=== PATIENT | female | born 1975 | race Caucasian/White ===

== ENCOUNTER 2018-11-19 22:23 | Inpatient (IN) | payer MEDICARE ==
[~2018-11-19] VITALS: Ht 175.3 cm; Wt 148.5 kg
--- OUTSIDE RECORDS SUMMARY | 2018-11-19 22:59 | XMS REPORT | Continuity of Care Document ---
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 mg=1 tab, PO, Q24H, X 10 day, # 10 tab, 0 Refill(s) Active 03/15/2017 [facility] benzonatate 100 mg oral capsule 100 mg=1 cap, PO, TID, PRN Cough, # 20 cap, 0 Refill(s) Active 03/15/2017 [facility] Docusate Sodium 100 MG Oral Capsule [Colace] 200 mg, 2 cap, Route: PO, Drug form: CAP, ONCE, Dosing Weight 153.665, kg, Start date: 03/15/17 10:55:00 CDT, Stop date: 03/15/17 10:55:00 CDTNotes: (Same as: Colace) (Do Not Crush) Inactive 03/15/2017 [facility] magnesium citrate 58.2 MG/ML Oral Solution 300 ml, Route: PO, Drug Form: LIQ, Dosing Weight 153.665, kg, ONCE, Start date: 03/15/17 10:55:00 CDT, Stop date: 03/15/17 10:55:00 CDTNotes: (Same as: Citrate of Magnesia) Concentration: 1.745 gm / 30 mL Inactive 03/15/2017 [facility] remove patch Route: TOP, Bedtime, Drug form: ERFILM, Start date: 03/14/17 21:00:00 CDT, Duration: 30 day, Stop date: 04/12/17 21:00:00 CDTNotes: Remove patch 12 hours after application each day. No Longer Active 03/15/2017 [facility] Lidocaine 0.05 MG/MG Transdermal Patch 1 patch, Route: TOP, Daily, Drug form: FILM, Start date: 03/14/17 11:00:00 CDT, Duration: 30 day, Stop date: 04/13/17 9:00:00 CDT No Longer Active 03/14/2017 [facility] WAIT for vancomycin trough draw prior to giving next dose WAIT for vancomycin trough draw prior to giving next dose, reminder, Drug form: MISC, Route: MISC, ONCE, 03/14/17 7:30:00 CDT, Stop date: 03/14/17 7:30:00 CDT Inactive 03/14/2017 [facility] WAIT for vancomycin trough draw prior to giving next dose WAIT for vancomycin trough draw prior to giving next dose, reminder, Drug form: MISC, Route: MISC, ONCE, 03/14/17 5:30:00 CDT, Stop date: 03/14/17 5:30:00 CDT Inactive 03/14/2017 [facility] Lovenox 40 mg, 0.4 mL, Route: SUB-Q, Drug form: INJ, Daily, Dosing Weight 153.665, kg, Start date: 03/13/17 17:00:00 CDT, Duration: 30 day, Stop date: 04/11/17 17:00:00 CDTNotes: (Same as: Lovenox) No Longer Active 03/13/2017 [facility] potassium chloride 20 mEq oral tablet, extended release 40 mEq, 2 tab, Route: PO, Drug form: ERTAB, ONCE, Dosing Weight 153.665, kg, Start date: 03/13/17 16:35:00 CDT, Stop date: 03/13/17 16:35:00 CDTNotes: (Same as: K-Dur 20) "Do Not Crush" With food and full glass of water Inactive 03/13/2017 [facility] Docusate 100 mg, 1 cap, Route: PO, Drug form: CAP, BID, Dosing Weight 125, kg, Start date: 03/13/17 9:00:00 CDT, Duration: 30 day, Stop date: 04/11/17 17:00:00 CDTNotes: (Same as: Colace) (Do Not Crush) No Longer Active 03/13/2017 [facility] budesonide-formoterol 160 mcg-4.5 mcg/inh inhalation aerosol with adapter 2 inhalation, Route: INHALATION, Drug Form: AERO/A, BID, Start date: 03/13/17 9:00:00 CDT, Duration: 30 day, Stop date: 04/11/17 17:00:00 CDTNotes: (Same as: Symbicort) WASTE: Aerosol - Return to Pharmacy No Longer Active 03/13/2017 [facility] Advair Diskus 500 mcg-50 mcg inhalation powder 1 puff, Route: INHALATION, Drug Form: AERO, Dosing Weight 125, kg, BID, Start date: 03/13/17 9:00:00 CDT, Duration: 30 day, Stop date: 04/11/17 17:00:00 CDT No Longer Active 03/13/2017 [facility] pneumococcal capsular polysaccharide type 1 vaccine / pneumococcal capsular polysaccharide type 10A vaccine / pneumococcal capsular polysaccharide type 11A vaccine / pneumococcal capsular polysaccharide type 12F vaccine / pneumococcal capsular polysacchar 0.5 mL, Route: IM, Drug Form: INJ, Daily, Start date: 03/13/17 9:00:00 CDT, Duration: 1 doses or times, Stop date: 03/13/17 9:00:00 CDTNotes: (Same as: Pneumovax 23) Refrigerate Inactive 03/13/2017 [facility] vancomycin 1.25 gm, 250 mL, Route: IVPB, Drug form: INJ, ABXQ8H, Start date: 03/13/17 5:00:00 CDT, Duration: 30 day, Stop date: 04/12/17 0:00:00 CDT, ABX Indication: PneumoniaNotes: TIME CRITICAL MEDICATION Same as: Vancocin-NS (premixed) Infusion rate 2001 mg: infuse over 2.5 hours No Longer Active 03/13/2017 [facility] Albuterol 0.833 MG/ML / Ipratropium [place] 0.167 MG/ML Inhalant Solution [DuoNeb] 3 mL, Route: NEB, Drug Form: SOLN, Dosing Weight 125, kg, RQ6H, Start date: 03/13/17 2:00:00 CDT, Duration: 30 day, Stop date: 04/11/17 20:00:00 CDTNotes: (Same as: Duoneb) No Longer Active 03/13/2017 [facility] Zosyn 3.375 gm, Route: IVPB, ABXQ8H, Dosing Weight 125, kg, Start date: 03/13/17 2:00:00 CDT, Duration: 5 day, Stop date: 03/17/17 18:00:00 CDT, ABX Indication: PneumoniaNotes: (Same as: Zosyn) Dosing based on Piperacillin component MEDICATION WASTE Product Size: 3375 mg Product Wasted: ___ mg No Longer Active 03/13/2017 [facility] heparin 7,500 unit, 1.5 mL, Route: SUB-Q, Drug form: INJ, Q8H, Dosing Weight 125, kg, Consider for obese patients, Start date: 03/13/17 0:00:00 CDT, Duration: 30 day, Stop date: 04/11/17 16:00:00 CDTNotes: porcine heparin Inactive 03/13/2017 [facility] Benadryl 25 mg, 0.5 mL, Route: IV, Drug form: INJ, Q6H, Dosing Weight 153.665, kg, PRN as needed for allergy symptoms, Start date: 03/12/17 23:37:00 CDT, Duration: 30 day, Stop date: 04/11/17 23:36:00 CDTNotes: (Same as: Benadryl) No Longer Active 03/13/2017 [facility] Singulair 10 mg, 1 tab, Route: PO, Drug form: TAB, Bedtime, Dosing Weight 125, kg, Start date: 03/12/17 21:00:00 CDT, Duration: 30 day, Stop date: 04/10/17 21:00:00 CDTNotes: (Same as:Devanulair) No Longer Active 03/13/2017 [facility] Vancomycin 1 ea, Route: MISC, ONCALL, Dosing Weight 125, kg, Start date: 03/12/17 21:00:00 CDT, day, Stop date: 03/12/17 21:00:00 CDT, Pharmacy to dose, ABX Indication: Pneumonia Inactive 03/13/2017 [facility] vancomycin 1.5 gm, 250 mL, Route: IVPB, Drug form: INJ, ONCE, Start date: 03/12/17 21:00:00 CDT, Stop date: 03/12/17 21:00:00 CDT, ABX Indication: PneumoniaNotes: TIME CRITICAL MEDICATION Same as: Vancocin-NS (pre mixed) Infusion rate 2001 mg: infuse over 2.5 hours Inactive 03/13/2017 [facility] Trazodone 50 mg, 1 tab, Route: PO, Drug form: TAB, Bedtime, Dosing Weight 153.665, kg, PRN Insomnia, Start date: 03/12/17 20:33:00 CDT, Duration: 30 day, Stop date: 04/11/17 20:32:00 CDTNotes: (Same As: Desyrel) No Longer Active 03/13/2017 [facility] Tessalon Perles 100 mg, 1 cap, Route: PO, Drug form: CAP, TID, Dosing Weight 153.665, kg, PRN Cough, Start date: 03/12/17 20:32:00 CDT, Duration: 30 day, Stop date: 04/11/17 20:31:00 CDTNotes: (Same As: Tessalon Per les) "Do Not Crush" No Longer Active 03/13/2017 [facility] senna 8.6 mg oral tablet 8.6 mg, 1 tab, Route: PO, Drug Form: TAB, Dosing Weight 153.665, kg, BID, PRN Constipation, Start date: 03/12/17 20:32:00 CDT, Duration: 30 day, Stop date: 04/11/17 20:31:00 CDTNotes: (Same as: Senokot) No Longer Active 03/13/2017 [facility] Acetaminophen 325 MG / Hydrocodone Bitartrate 10 MG Oral Tablet [[place] 10/325] 1 tab, Route: PO, Drug Form: TAB, Dosing Weight 125, kg, Q6H, PRN Pain Score 4-6, Start date: 03/12/17 20:30:00 CDT, Duration: 30 day, Stop date: 04/11/17 20:29:00 CDTNotes: Do not exceed 4gm/day of acetaminophen. (Same as: [place] 325/10) No Longer Active 03/13/2017 [facility] Morphine 2 mg, 1 mL, Route: IVP, Drug form: SOLN, Q4H, Dosing Weight 125, kg, PRN Pain Score 7-10, Start date: 03/12/17 20:29:00 CDT, Duration: 30 day, Stop date: 04/11/17 20:28:00 CDT No Longer Active 03/13/2017 [facility] Ondansetron 4 mg, 2 mL, Route: IVP, Drug form: INJ, Q6H, Dosing Weight 125, kg, PRN Nausea & Vomiting, Start date: 03/12/17 20:29:00 CDT, Duration: 30 day, Stop date: 04/11/17 20:28:00 CDTNotes: (Same as: Forrest) MEDICATION WASTE Product Size: 4 mg Product Wasted: ___ mg No Longer Active 03/13/2017 [facility] Acetaminophen 650 mg, 2 tab, Route: PO, Drug form: TAB, Q4H, Dosing Weight 125, kg, PRN Pain 1-3/Temp > 100.4 F, Start date: 03/12/17 20:29:00 CDT, Duration: 30 day, Stop date: 04/11/17 20:28:00 CDTNotes: Do not e xceed 4 gm/day. (Same as: Tylenol) No Longer Active 03/13/2017 [facility] Acetaminophen 325 MG / Hydrocodone Bitartrate 5 MG Oral Tablet 1 tab, Route: PO, Dosing Weight 125, kg, Q4H, PRN Pain Score 4-6, Start date: 03/12/17 20:29:00 CDT, Duration: 30 day, Stop date: 04/11/17 20:28:00 CDT Inactive 03/13/2017 [facility] Advair Diskus 500 mcg-50 mcg inhalation powder 1 puff, INHALATION, BID, 0 Refill(s) Active 03/13/2017 [facility] ibuprofen 800 mg oral tablet 800 mg=1 tab, PO, BID, PRN Pain Score 1-5, 0 Refill(s) Active 03/13/2017 [facility] naproxen sodium 550 mg oral tablet 550 mg=1 tab, PO, Daily, 0 Refill(s) Active 03/13/2017 [facility] Sodium Chloride 0.9% (Bolus) IV 1,000 mL, 1000 ml/hr, Infuse Over: 1 hr, Route: IV, 1,000, Drug form: INJ, ONCE, Priority: STAT, Dosing Weight 125 kg, Start date: 03/12/17 18:52:00 CDT, Duration: 1 doses or times, Stop date: 03/12/17 18:52:00 CDT Inactive 03/12/2017 [facility] Vancomycin 1,000 mg, Route: IVPB, ONCE, Dosing Weight 125, kg, Priority: STAT, Start date: 03/12/17 17:25:00 CDT, Duration: 1 doses or times, Stop date: 03/12/17 17:25:00 CDT, ABX Indication: BacteremiaNotes: TIME CRITICAL MEDICATION (Same As: Vancocin) Infusion rate 2001 mg: infuse over 2.5 hours MEDICATION WASTE Product Size: 1000 mg Product Wasted: ___ mg Inactive 03/12/2017 [facility] Piperacillin / tazobactam 3.375 gm, Route: IVPB, ONCE, Dosing Weight 125, kg, Priority: STAT, Start date: 03/12/17 17:25:00 CDT, Duration: 1 doses or times, Stop date: 03/12/17 17:25:00 CDT, ABX Indication: BacteremiaNotes: (Same as: Zosyn) Dosing based on Piperacillin component MEDICATION WASTE Product Size: 3375 mg Product Wasted: ___ mg Inactive 03/12/2017 [facility] Ondansetron 4 mg, 2 mL, Route: IVP, Drug form: INJ, ONCE, Dosing Weight 125, kg, Priority: STAT, Start date: 03/12/17 15:57:00 CDT, Stop date: 03/12/17 15:57:00 CDTNotes: (Same as: Zojayda) MEDICATION WASTE Product Size: 4 mg Product Wasted: ___ mg Inactive 03/12/2017 [facility] Morphine 4 mg, 1 mL, Route: IVP, Drug form: SOLN, ONCE, Dosing Weight 125, kg, Priority: STAT, Start date: 03/12/17 15:57:00 CDT, Stop date: 03/12/17 15:57:00 CDTNotes: (Same as:MORPhine Sulfate) Inactive 03/12/2017 [facility] Acetaminophen 300 MG / Codeine Phosphate 30 MG Oral Tablet [Tylenol with Codeine #3] 1 - 2 tab, PO, Q6H, PRN Pain, X 4 day, # 20 tab, 0 Refill(s) Active 11/05/2016 [facility] Morphine 4 mg, 1 mL, Route: IVP, Drug form: SOLN, ONCE, Dosing Weight 136.364, kg, Priority: STAT, Start date: 11/04/16 22:50:00 CDT, Stop date: 11/04/16 22:50:00 CDTNotes: (Same as:MORPhine Sulfate) No Longer Active 11/05/2016 [facility] Saline Flush 0.9% 10 mL, Route: IVP, Drug Form: INJ, Dosing Weight 136.364, kg, PRN, PRN Line Flush, Start date: 11/04/16 22:36:00 CDT, Duration: 30 day, Stop date: 12/04/16 22:35:00 CDTNotes: (Same as: BD Posiflush) No Longer Active 11/05/2016 [facility] Ketorolac Tromethamine 10 MG Oral Tablet 10 mg=1 tab, PO, Q6H, PRN Pain Score 6-10, X 3 day, # 12 tab, 0 Refill(s) Active 05/17/2016 [facility] Ketorolac 15 mg, Route: IVP, Drug form: INJ, ONCE, Dosing Weight 136.364, kg, Priority: STAT, Start date: 05/17/16 3:24:00 CRAS, Stop date: 05/17/16 3:24:00 CRAS Inactive 05/17/2016 [facility] Acetaminophen 300 MG / Codeine Phosphate 30 MG Oral Tablet [Tylenol with Codeine #3] 1 - 2 tab, PO, Q6H, PRN Pain, X 4 day, # 32 tab, 0 Refill(s) Active 05/13/2016 [facility] Motrin 800 mg, Route: PO, Drug form: TAB, ONCE, Dosing Weight 143.636, kg, Priority: STAT, Start date: 05/13/16 13:14:00 CRAS, Stop date: 05/13/16 13:14:00 CRAS Inactive 05/13/2016 [facility] Morphine 4 mg, Route: IVP, ONCE, Dosing Weight 143.636, kg, Priority: STAT, Start date: 05/13/16 11:32:00 CRAS, Stop date: 05/13/16 11:32:00 CRAS Inactive 05/13/2016 [facility] Morphine 4 mg, Route: IVP, ONCE, Dosing Weight 143.636, kg, Priority: STAT, Start date: 05/13/16 10:06:00 CRAS, Stop date: 05/13/16 10:06:00 CRAS Inactive 05/13/2016 [facility] Zofran 4 mg, Route: IVP, Drug form: INJ, ONCE, Dosing Weight 143.636, kg, Priority: STAT, Start date: 05/13/16 10:06:00 CRAS, Stop date: 05/13/16 10:06:00 CRAS Inactive 05/13/2016 [facility] Tylenol 1,000 mg, 2 tab, Route: PO, Drug form: TAB, ONCE, Dosing Weight 143.636, kg, Start date: 05/13/16 9:13:00 CRAS, Stop date: 05/13/16 9:13:00 CSTNotes: Max acetaminophen 4000 mg/day (4 gm/day). (Same as: Tylenol Extra Strength) Inactive 05/13/2016 [facility] Lactated Ringers 1,000 mL 1,000 mL, Rate: 999 ml/hr, Infuse over: 1 hr, Route: IV, Dosing Weight 143.636 kg, Total Volume: 1,000, Start date: 05/13/16 9:12:00 CRAS, Duration: 1 hr, Stop date: 05/13/16 10:11:00 CRAS Inactive 05/13/2016 [facility] Levofloxacin 750 mg, 150 mL, Route: IVPB, Drug form: SOLN, ONCE, Dosing Weight 143.636, kg, Priority: STAT, Start date: 05/13/16 9:11:00 CRAS, Stop date: 05/13/16 9:11:00 CSTNotes: (Same as:Levaquin) Inactive 05/13/2016 [facility] Saline Flush 0.9% 10 mL, Route: IVP, Drug Form: INJ, Dosing Weight 143.636, kg, PRN, PRN Line Flush, Start date: 05/13/16 9:11:00 CRAS, Duration: 30 day, Stop date: 06/12/16 9:10:00 CSTNotes: (Same as: BD Posiflush) Inactive 05/13/2016 [facility] Acetaminophen 300 MG / Codeine Phosphate 60 MG Oral Tablet [Tylenol with Codeine #4] 1 tab, PO, Q4H, PRN Pain, X 7 day, # 12 tab, 0 Refill(s) Active 04/20/2016 [facility] amoxicillin 500 mg oral tablet 500 mg=1 tab, PO, TID, X 10 day, # 30 tab, 0 Refill(s) Active 04/20/2016 [facility] Acetaminophen 325 MG / Hydrocodone Bitartrate 10 MG Oral Tablet [[place] 10/325] 1 tab, Route: PO, Drug Form: TAB, Dosing Weight 140.909, kg, ONCE, STAT, Start date: 04/19/16 21:59:00 CRAS, Stop date: 04/19/16 21:59:00 CSTNotes: Do not exceed 4gm/day of acetaminophen. (Same as: [place] 325/10) Inactive 04/20/2016 [facility] Sodium Chloride 0.154 MEQ/ML Injectable Solution 1,000 mL, 1,000 ml/hr, Infuse Over: 1 hr, Route: IV, 1,000, Drug form: INJ, ONCE, Priority: STAT, Dosing Weight 140.909 kg, Start date: 04/19/16 21:59:00 CRAS, Duration: 1 doses or times, Stop date: 04/19/16 21:59:00 CRAS Inactive 04/20/2016 [facility] Ondansetron 4 MG Disintegrating Tablet [Zofran] 4 mg=1 tab, PO, Q8H, PRN as needed for nausea/vomiting, X 3 day, # 12 tab, 0 Refill(s) Active 01/07/2016 [facility] Acetaminophen 300 MG / butalbital 50 MG / Caffeine 40 MG Oral Capsule [Fioricet] 1 cap, PO, Q4H, PRN PRN Headache, Do not exceed 6 capsules in 24 hours, X 5 day, # 30 cap, 0 Refill(s) Active 01/07/2016 [facility] Sodium Chloride 0.154 MEQ/ML Injectable Solution 1,000 mL, 1,000 ml/hr, Infuse Over: 1 hr, Route: IV, ONCE, Priority: STAT, Dosing Weight 143.636 kg, Start date: 01/07/16 2:32:00 CDT, Duration: 1 doses or times, Stop date: 01/07/16 2:32:00 CDT Inactive 01/07/2016 [facility] Metoclopramide 10 mg, Route: IVP, Drug form: INJ, ONCE, Dosing Weight 143.636, kg, Priority: STAT, Start date: 01/07/16 2:32:00 CDT, Stop date: 01/07/16 2:32:00 CDT Inactive 01/07/2016 [facility] Diphenhydramine 25 mg, Route: IVP, ONCE, Dosing Weight 143.636, kg, Priority: STAT, Start date: 01/07/16 2:32:00 CDT, Stop date: 01/07/16 2:32:00 CDT Inactive 01/07/2016 [facility] Sodium Chloride 0.154 MEQ/ML Injectable Solution 1,000 mL, 1,000 ml/hr, Infuse Over: 1 hr, Route: IV, 1,000, Drug form: INJ, ONCE, Priority: STAT, Dosing Weight 140 kg, Start date: 12/20/15 2:16:00 CDT, Duration: 1 doses or times, Stop date: 12/20/15 2:16:00 CDT Inactive 12/20/2015 [facility] Sulfamethoxazole 800 MG / Trimethoprim 160 MG Oral Tablet [Bactrim] 1 tab, PO, BID, X 10 day, # 20 tab, 0 Refill(s) Active 06/22/2015 [facility] Morphine 4 mg, Route: IM, Drug form: INJ, ONCE, Dosing Weight 127.273, kg, Priority: STAT, Start date: 06/22/15 9:53:00, Stop date: 06/22/15 9:53:00 Inactive 06/22/2015 [facility] Ibuprofen 800 MG Oral Tablet [Motrin] 800 mg=1 tab, PO, Q8H, Pain, Take with food, # 15 tab, 0 Refill(s)Special Instructions: Take with food Active 08/22/2014 [facility] Cyclobenzaprine hydrochloride 10 MG Oral Tablet [Flexeril] 10 mg=1 tab, PO, BID, # 6 tab, 0 Refill(s) Active 08/22/2014 [facility] Flexeril 10 mg, 1 tab, Route: PO, Drug form: TAB, ONCE, Dosing Weight 122.727, kg, Priority: STAT, Start date: 08/22/14 12:01:00, Stop date: 08/22/14 12:01:00Notes: (Same As: Flexeril) Inactive 08/22/2014 [facility] Acetaminophen 325 MG / Hydrocodone Bitartrate 5 MG Oral Tablet [[place] 5/325] 1 tab, Route: PO, Drug Form: TAB, Dosing Weight 122.727, kg, ONCE, STAT, Start date: 08/22/14 12:01:00, Stop date: 08/22/14 12:01:00Notes: (Same as: [place] 325/5) Do not exceed 4gm/day of acetaminophen. Inactive 08/22/2014 [facility] cyclobenzaprine 10 mg oral tablet 10 mg=1 tab, PO, TID, for spasm, # 30 tab, 0 Refill(s) Active 01/12/2014 [facility] ibuprofen 800 mg oral tablet 800 mg=1 tab, PO, Q8H, Pain, Take with food, # 30 tab, 0 Refill(s)Special Instructions: Take with food Active 01/12/2014 [facility] Motrin 800 mg, Route: PO, Drug form: TAB, ONCE, Dosing Weight 127.273, kg, Priority: STAT, Start date: 01/12/14 9:36:00, Stop date: 01/12/14 9:36:00 Inactive 01/12/2014 [facility] Flexeril 10 mg, Route: PO, ONCE, Dosing Weight 127.273, kg, Priority: STAT, Start date: 01/12/14 8:12:00, Stop date: 01/12/14 8:12:00 Inactive 01/12/2014 [facility] Motrin 800 mg, Route: PO, Drug form: TAB, ONCE, Dosing Weight 127.273, kg, Priority: STAT, Start date: 01/12/14 8:12:00, Stop date: 01/12/14 8:12:00 Inactive 01/12/2014 [facility] albuterol 0.083% inhalation solution 2.49 mg=3 mL, NEB, Q6H, # 120 ea, 0 Refill(s) Active s 07/17/2013 [facility] predniSONE 20 mg oral tablet 40 mg=2 tab, PO, Daily, # 8 tab, 0 Refill(s) Active s 07/17/2013 [facility] Tylenol with Codeine 120 mg-12 mg/5 mL oral liquid 15 mL, PO, TID, pain, # 120 mL, 0 Refill(s) Active s 07/17/2013 [facility] Azithromycin 5 Day Dose Pack 250 mg oral tablet 250 mg, PO, Daily, Take 2 tablets by mouth the first day then 1 tablet by mouth days 2- 5, # 6 tab, 0 Refill(s)Take 2 tablets by mouth the first day then 1 tablet by mouth days 2-5 Active s 07/17/2013 [facility] Saline Flush 0.9% 5 mL, Route: IVP, Drug Form: INJ, Dosing Weight 140.909, kg, PRN, PRN Line Flush, Start date: 07/17/13 11:07:00, Duration: 1 day, Stop date: 07/18/13 11:06:00(Same as: BD Posiflush) Inactive s 07/17/2013 [facility] methylPREDNISolone SODium SUCCinate 125 mg, Route: IVP, ONCE, Dosing Weight 140.909, kg, Priority: STAT, Start date: 07/17/13 11:07:00, Stop date: 07/17/13 11:07:00 Inactive s 07/17/2013 [facility] DuoNeb inhalation solution 3 ml, Route: INHALATION, Drug Form: SOLN, Dosing Weight 140.909, kg, PRN, PRN Respiratory Protocol, Start date: 07/17/13 10:54:00, Duration: 1 doses or times, Stop date: Limited # of times(Same as: Duoneb) Inactive [place] 07/17/2013 [facility] [place] 5/325 oral tablet 1 tab, PO, Q4H, PRN, 20 tab, for pain, Substitution Allowed, Maintenance, TAB PO Active [place] 07/02/2012 [facility] clindamycin 150 mg oral capsule 150 mg, 1 cap, PO, Q6H, 20 cap, Substitution Allowed, CAP PO Active [place] 07/02/2012 [facility] Saline Flush 0.9% 5 mL, Route: IVP, Drug Form: INJ, Dosing Weight 136.364, kg, Q8H, PRN Line Flush, Start date: 07/01/12 22:10:00, Duration: 30 day, Stop date: 07/31/12 22:09:00, Administer at least once every 8 hoursAdminister at least once every 8 hours IVP No Longer Active [place] 07/02/2012 [facility] Demerol HCl 50 mg, 1 mL, Route: IM, Drug form: INJ, ONCE, Dosing Weight 136.364, kg, Start date: 04/28/12 16:20:00, Stop date: 04/28/12 16:20:00 IM No Longer Active Lucas 04/28/2012 [facility] Dilaudid 0.5 mg, 0.25 mL, Route: IVP, Drug form: INJ, ONCE, Dosing Weight 136.364, kg, Start date: 04/28/12 15:37:00, Stop date: 04/28/12 15:37:00 IVP Active [place] 04/28/2012 [facility] acetaminophen 1,000 mg, 100 mL, Route: IVPB, Drug form: INJ, ONCE, Dosing Weight 136.364, kg, Start date: 04/28/12 15:29:00, Stop date: 04/28/12 15:29:00 IVPB Active Sandie 04/28/2012 [facility] Sublimaze 50 microgram, Route: IRRIG, ONCE, Dosing Weight 136.364, kg, Start date: 04/28/12 15:29:00, Stop date: 04/28/12 15:29:00 IRRIG No Longer Active Sandie 04/28/2012 [facility] cefazolin + Sodium Chloride 0.9% IV 100 mL 1 gm, Route: IVPB, PRE OP, Start date: 04/28/12 13:00:00, Duration: 12 hr, Stop date: 04/29/12 0:59:00 IVPB No Longer Active Federico 04/28/2012 [facility] lidocaine 0.1 mL, Route: IV, Drug form: INJ, ONCALL, Start date: 04/28/12 9:00:00, Duration: 12 hr, Stop date: 04/28/12 20:59:00 IV No Longer Active Gallacher 04/28/2012 [facility] Lactated Ringers Injection IV 1,000 mL 1,000 mL, Rate: 100 ml/hr, Infuse over: 10 hr, Route: IV, kg, Total Volume: 1,000, Start date: 04/28/12 9:00:00, Duration: 12 hr, Stop date: 04/28/12 20:59:00 IV No Longer Active Gallacher 04/28/2012 [facility] predniSONE 40 mg, 2 tab, Route: PO, Drug form: TAB, Daily, Start date: 04/26/12 9:00:00, Duration: 30 day, Stop date: 05/25/12 9:00:00 PO No Longer Active [place] 04/26/2012 [facility] Singulair 10 mg, 1 tab, Route: PO, Drug form: TAB, Daily, Start date: 04/25/12 21:00:00, Duration: 30 day, Stop date: 05/24/12 21:00:00 PO No Longer Active [place] 04/26/2012 [facility] acetaminophen-oxycodone 325 mg-10 mg oral tablet 1 tab, Route: PO, Drug Form: TAB, Q4H, PRN Other -See Comment, Start date: 04/25/12 10:35:00, Duration: 30 day, Stop date: 05/25/12 10:34:00 PO No Longer Active [place] 04/25/2012 [facility] Lovenox 40 mg, 0.4 mL, Route: SUB-Q, Drug form: INJ, Daily, Start date: 04/25/12 9:00:00, Duration: 30 day, Stop date: 05/24/12 9:00:00 SUB-Q No Longer Active [place] 04/25/2012 [facility] Ambien 5 mg, 1 tab, Route: PO, Drug form: TAB, Bedtime, PRN Sleep, Start date: 04/24/12 20:36:00, Duration: 30 day, Stop date: 05/24/12 20:35:00 PO No Longer Active [place] 04/25/2012 [facility] Protonix 40 mg, 1 tab, Route: PO, Drug form: ECTAB, BID- Before Meals, Start date: 04/23/12 16:30:00, Duration: 30 day, Stop date: 05/23/12 7:30:00 PO No Longer Active [place] 04/23/2012 [facility] Esgic 2 tab, Route: PO, Drug Form: TAB, ONCE, Start date: 04/23/12 12:00:00, Stop date: 04/23/12 12:00:00 PO No Longer Active [place] 04/23/2012 [facility] ferrous sulfate 325 mg, 1 tab, Route: PO, Drug form: TAB, BID, Start date: 04/23/12 12:00:00, Duration: 30 day, Stop date: 05/23/12 9:00:00 PO No Longer Active [place] 04/23/2012 [facility] Sodium Chloride 0.9% IV 1,000 mL 1,000 mL, Rate: 125 ml/hr, Infuse over: 8 hr, Route: IV, kg, Total Volume: 1,000, Start date: 04/23/12 12:00:00, Duration: 30 day, Stop date: 05/23/12 11:59:00 IV No Longer Active [place] 04/23/2012 [facility] multivitamin 1 tab, Route: PO, Drug Form: TAB, BID, Start date: 04/23/12 12:00:00, Duration: 3 doses or times, Stop date: 04/24/12 17:00:00 PO No Longer Active [place] 04/23/2012 [facility] docusate sodium 100 mg oral capsule 100 mg, 1 cap, Route: PO, Drug form: CAP, BID, PRN Constipation, Start date: 04/23/12 11:14:00, Duration: 30 day, Stop date: 05/23/12 11:13:00 PO No Longer Active [place] 04/23/2012 [facility] Esgic 2 tab, Route: PO, Drug Form: TAB, Q6H, PRN Pain, Start date: 04/23/12 11:13:00, Duration: 30 day, Stop date: 05/23/12 11:12:00 PO No Longer Active [place] 04/23/2012 [facility] Esgic 1 tab, Route: PO, Drug Form: TAB, Q6H, PRN Pain, Start date: 04/23/12 11:12:00, Duration: 30 day, Stop date: 05/23/12 11:11:00 PO No Longer Active [place] 04/23/2012 [facility] methylPREDNISolone 60 mg, 0.96 mL, Route: IV, Drug form: INJ, Q8H, Start date: 04/23/12 9:00:00, Duration: 3 doses or times, Stop date: 04/24/12 1:00:00 IV No Longer Active [facility] 04/23/2012 [facility] fluticasone-salmeterol 250 mcg-50 mcg MDI 1 inhalation, Route: INHALER, Drug Form: AERO, RBID, Start date: 04/22/12 20:00:00, Duration: 30 day, Stop date: 05/22/12 8:00:00 INHALER No Longer Active [facility] 04/23/2012 [facility] Lovenox 140 mg, 0.93 mL, Route: SUB-Q, Drug form: INJ, [id number], Start date: 04/22/12 17:00:00, Duration: 30 day, Stop date: 05/22/12 5:00:00 SUB-Q No Longer Active [place] 04/22/2012 [facility] methylPREDNISolone 40 mg, 1 mL, Route: IV, Drug form: INJ, Q8H, Start date: 04/22/12 16:00:00, Duration: 30 day, Stop date: 05/22/12 8:00:00 IV No Longer Active [facility] 04/22/2012 [facility] Zithromax IVPB, 166.67 ml/hr, [id number], Start date: 04/22/12 14:00:00, Duration: 30, 250 ml IVPB No Longer Active [facility] 04/22/2012 [facility] Rocephin + Sodium Chloride 0.9% IV 100 mL 1 gm, Route: IVPB, [id number], Start date: 04/22/12 13:00:00, Duration: 30 day, Stop date: 05/21/12 13:00:00 IVPB No Longer Active [facility] 04/22/2012 [facility] DuoNeb inhalation solution 3 mL, Route: NEB, Drug Form: SOLN, [id number], Start date: 04/22/12 11:00:00, Duration: 30 day, Stop date: 05/22/12 7:00:00 NEB No Longer Active [place] 04/22/2012 [facility] K-Dur 10 30 mEq, 3 tab, Route: PO, Drug form: ERTAB, Q1H, Start date: 04/22/12 9:00:00, Duration: 2 doses or times, Stop date: 04/22/12 10:00:00 PO No Longer Active [place] 04/22/2012 [facility] Levaquin 750 mg, 150 mL, Route: IV, Drug form: SOLN, [id number], Start date: 04/22/12 9:00:00, Duration: 30 day, Stop date: 05/21/12 9:00:00 IV No Longer Active [place] 04/22/2012 [facility] Coumadin 7.5 mg, 1 tab, Route: PO, Drug form: TAB, Q5PM, Start date: 04/22/12 9:00:00, Duration: 30 day, Stop date: 05/21/12 17:00:00 PO No Longer Active [place] 04/22/2012 [facility] Protonix 40 mg, 1 tab, Route: PO, Drug form: ECTAB, Before Dinner, Start date: 04/22/12 9:00:00, Duration: 30 day, Stop date: 05/21/12 16:30:00 PO No Longer Active [place] 04/22/2012 [facility] lidocaine-prilocaine topical 1 appl, Route: TOP, ONCALL, Drug form: CRM, Start date: 04/22/12 9:00:00, Duration: 2 day, Stop date: 04/24/12 8:59:00 [facility] No Longer Active [place] 04/22/2012 [facility] Tessalon Perles 200 mg, 2 cap, Route: PO, Drug form: CAP, Q8H-06, Start date: 04/22/12 9:00:00, Duration: 30 day, Stop date: 05/22/12 6:00:00 PO No Longer Active [place] 04/22/2012 [facility] methylPREDNISolone 100 mg, 1.6 mL, Route: IV, Drug form: INJ, Q8H, Start date: 04/22/12 9:00:00, Duration: 3 doses or times, Stop date: 04/23/12 1:00:00 IV No Longer Active [place] 04/22/2012 [facility] Zofran 4 mg, 2 mL, Route: IVP, Drug form: INJ, Q6H, PRN Nausea, Priority: STAT, Start date: 04/22/12 8:46:00, Duration: 30 day, Stop date: 05/22/12 8:45:00 IVP No Longer Active [place] 04/22/2012 [facility] acetaminophen-hydrocodone 325 mg-10 mg oral tablet 1 tab, Route: PO, Drug Form: TAB, Q6H, PRN Pain, Start date: 04/22/12 8:46:00, Duration: 30 day, Stop date: 05/22/12 8:45:00 PO No Longer Active [place] 04/22/2012 [facility] tramadol 50 mg oral tablet 100 mg, 2 tab, Route: PO, Drug form: TAB, Q6H, PRN Pain, Start date: 04/22/12 8:46:00, Duration: 30 day, Stop date: 05/22/12 8:45:00 PO No Longer Active [place] 04/22/2012 [facility] morphine Sulfate 2 mg, 1 mL, Route: IV, Drug form: INJ, Q4H, PRN Pain, Start date: 04/22/12 8:45:00, Duration: 30 day, Stop date: 05/22/12 8:44:00 IV No Longer Active [place] 04/22/2012 [facility] Xanax 0.5 mg, 1 tab, Route: PO, Drug form: TAB, QID, PRN Anxiety, Start date: 04/22/12 8:38:00, Duration: 30 day, Stop date: 05/22/12 8:37:00 PO No Longer Active [place] 04/22/2012 [facility] codeine-guaifenesin 10 mL, Route: PO, Drug Form: LIQ, Q6H, PRN Cough, Start date: 04/22/12 8:36:00, Duration: 30 day, Stop date: 05/22/12 8:35:00 PO No Longer Active [place] 04/22/2012 [facility] Sodium Chloride 0.45% IV 1,000 mL 1,000 mL, Rate: 100 ml/hr, Infuse over: 10 hr, Route: IV, kg, Total Volume: 1,000, Start date: 04/22/12 8:36:00, Duration: 15 hr, Stop date: 04/22/12 23:35:00 IV No Longer Active [place] 04/22/2012 [facility] DuoNeb inhalation solution 3 mL, Route: NEB, Drug Form: SOLN, PRN, PRN Wheezing, Start date: 04/22/12 8:32:00, Duration: 30 day, Stop date: 05/22/12 8:31:00 NEB No Longer Active [place] 04/22/2012 [facility] morphine Sulfate 2 mg, Route: IVP, ONCE, Dosing Weight 136.364, kg, Priority: STAT, Start date: 04/22/12 7:40:00, Stop date: 04/22/12 7:40:00 IVP No Longer Active [place] 04/22/2012 [facility] Dilaudid 1 mg, 1 mL, Route: IV, Drug form: INJ, ONCE, Dosing Weight 136.364, kg, Start date: 04/22/12 5:37:00, Stop date: 04/22/12 5:37:00 IV No Longer Active [place] 04/22/2012 [facility] Lovenox 130 mg, 0.87 mL, Route: SUB-Q, Drug form: INJ, ONCE, Dosing Weight 136.364, kg, Priority: STAT, Start date: 04/22/12 5:16:00, Stop date: 04/22/12 5:16:00 SUB-Q No Longer Active [place] 04/22/2012 [facility] acetaminophen 1,000 mg, 2 tab, Route: PO, Drug form: TAB, ONCE, Dosing Weight 136.364, kg, Start date: 04/22/12 1:43:00, Stop date: 04/22/12 1:43:00 PO No Longer Active [place] 04/22/2012 [facility] DuoNeb inhalation solution 3 mL, Route: INHALATION, Drug Form: SOLN, Dosing Weight 136.364, kg, Q15Min, PRN Wheezing, Start date: 04/22/12 1:42:00, Duration: 3 doses or times, Stop date: Limited # of times INHALATION No Longer Active [place] 04/22/2012 [facility] predniSONE 60 mg, 3 tab, Route: PO, Drug form: TAB, ONCE, Dosing Weight 136.364, kg, Priority: STAT, Start date: 04/22/12 1:40:00, Stop date: 04/22/12 1:40:00 PO No Longer Active [place] 04/22/2012 [facility] Colace 100 mg oral capsule 100 mg, 1 cap, PO, BID, PRN, 20 cap, Constipation, Substitution Allowed, CAP PO Active [place] 04/21/2012 [facility] [place] 10/325 oral tablet 1-2 tab, PO, Q4-6H, PRN, 30 tab, Pain, Substitution Allowed, Maintenance PO Active [place] 04/21/2012 [facility] hydromorphone 2 mg, 1 mL, Route: IM, Drug form: INJ, ONCE, Dosing Weight 136.364, kg, Priority: STAT, Start date: 04/21/12 0:11:00, Stop date: 04/21/12 0:11:00 IM No Longer Active [place] 04/21/2012 [facility] [place] 10/325 oral tablet 1 tab, PO, Q4H, PRN, 24 tab, for pain, Substitution Allowed, Maintenance PO Active [place] 04/20/2012 [facility] Versed 4 mg, 4 mL, Route: IVP, Drug form: SOLN, ONCE, Dosing Weight 136.364, kg, Priority: STAT, Start date: 04/20/12 1:21:00, Stop date: 04/20/12 1:21:00 IVP No Longer Active [place] 04/20/2012 [facility] Dilaudid 1 mg, 1 mL, Route: IV, Drug form: INJ, ONCE, Dosing Weight 136.364, kg, Start date: 04/20/12 1:21:00, Stop date: 04/20/12 1:21:00 IV No Longer Active [place] 04/20/2012 [facility] Zofran 4 mg, 2 mL, Route: IVP, Drug form: INJ, ONCE, Dosing Weight 136.364, kg, Priority: STAT, Start date: 04/20/12 1:01:00, Stop date: 04/20/12 1:01:00 IVP No Longer Active [place] 04/20/2012 [facility] morphine Sulfate 6 mg, 0.6 mL, Route: IVP, Drug form: INJ, ONCE, Dosing Weight 136.364, kg, Start date: 04/20/12 1:01:00, Stop date: 04/20/12 1:01:00 IVP No Longer Active [place] 04/20/2012 [facility] Allergies, Adverse Reactions, Alerts Substance Category Reaction Severity Reaction type Status Date Reported Comments Source HYDROcodone Assertion Drug allergy Active [facility] No Known Medication Allergies Assertion Drug allergy [facility] Immunizations Immunization Date Given Site Status Last Updated Comments Source pneumococcal 23-valent vaccine 03/13/2017 Not Given [facility], MISTI [place] Results Order Name Results Value Reference Range Date Interpretation Comments Source HEMATOLOGY D-Dimer null 09/29/2018 [facility] CARDIAC ENZYMES BNP 11 pg/mL <=100 pg/mL 09/29/2018 [facility] CARDIAC ENZYMES Troponin-I null 0.00 - 0.40 09/29/2018 [facility] CHEM PANEL eGFR 78 mL/min/1.73m2 09/29/2018 Result Comment: The eGFR is calculated using the CKD-EPI formula. In most young, healthy individuals the eGFR will be >90 mL/min/1.73m2. The eGFR declines with age. An eGFR of 60-89 may be normal in some populations, particularly the elderly, for whom the CKD-EPI formula has not been extensively validated. Use of the eGFR is not recommended in the following populations: Individuals with unstable creatinine concentrations, including patients and those with serious co-morbid conditions. Patients with extremes in muscle mass or diet. The data above are obtained from the National Kidney Disease Education Program (NKDEP) which additionally recommends that when the eGFR is used in patients with extremes of body mass index for purposes of drug dosing, the eGFR should be multiplied by the estimated BMI. [facility] CHEM PANEL Glucose Lvl 93 mg/dL 70 - 99 09/29/2018 [facility] CHEM PANEL CO2 25 meq/L 24 - 32 09/29/2018 [facility] CHEM PANEL Chloride Lvl 110 meq/L 95 - 109 09/29/2018 [facility] CHEM PANEL Potassium Lvl 3.9 meq/L 3.5 - 5.1 09/29/2018 [facility] CHEM PANEL Sodium Lvl 141 meq/L 135 - 145 09/29/2018 [facility] CHEM PANEL Creatinine Lvl 0.92 mg/dL 0.50 - 1.40 09/29/2018 [facility] CHEM PANEL BUN 13 mg/dL 7 - 22 09/29/2018 [facility] CHEM PANEL Calcium Lvl 8.7 mg/dL 8.5 - 10.5 09/29/2018 [facility] CHEM PANEL AGAP 9.9 meq/L 10.0 - 20.0 09/29/2018 [facility] HEMATOLOGY Eosinophils # 0.3 K/CMM 0.0 - 0.5 09/29/2018 [facility] Lymphocytes # 1.8 K/CMM 1.0 - 5.5 09/29/2018 [facility] Basophils # 0.1 K/CMM 0.0 - 0.2 09/29/2018 [facility] Monocytes # 0.5 K/CMM 0.0 - 0.8 09/29/2018 [facility] Segs 77.8 % 45.0 - 75.0 09/29/2018 [facility] Basophils 0.6 % 0.0 - 1.0 09/29/2018 [facility] Lymphocytes 14.9 % 20.0 - 40.0 09/29/2018 [facility] Monocytes 3.9 % 2.0 - 12.0 09/29/2018 [facility] Neutrophils # 9.3 K/CMM 1.5 - 8.1 09/29/2018 [facility] Eosinophils 2.8 % 0.0 - 4.0 09/29/2018 [facility] MPV 8.0 fL 7.4 - 10.4 09/29/2018 [facility] MCHC 32.1 g/dL 32.0 - 36.0 09/29/2018 [facility] RDW 16.5 % 11.5 - 14.5 09/29/2018 [facility] Platelet 298 K/CMM 133 - 450 09/29/2018 [facility] Hgb 12.2 g/dL 12.0 - 16.0 09/29/2018 [facility] Hct 38.0 % 36.0 - 48.0 09/29/2018 [facility] MCV 79.3 fL 80.0 - 98.0 09/29/2018 [facility] MCH 25.4 pg 27.0 - 31.0 09/29/2018 [facility] RBC 4.79 M/CMM 4.20 - 5.40 09/29/2018 [facility] WBC 12.0 K/CMM 3.7 - 10.4 09/29/2018 [facility] Chest 1view DX Chest 1view DX Clinical Indication: Coughing - cough and dyspnea Comparison: Prior chest radiograph dated 07/31/2018. FINDINGS: The portable AP single view radiograph provided for review. The exam demonstrates normal lung volumes without dense airspace consolidation, large pleural effusion or detectable pneumothorax. The heart size and pulmonary vasculature are normal. The trachea is midline. There are no clinically significant osseous abnormalities noted. IMPRESSION: No chest radiographic evidence of acute cardiopulmonary disease. SL: MARGARET 09/28/2018 - - Read by: Kandice Acuna MD Dictated Date/time: 09/28/18 19:11 Electronically Signed by: Kandice Acuna MD 09/28/18 19:13 FINAL REPORT [facility] CARDIAC ENZYMES BNP 41 pg/mL <=100 pg/mL 08/01/2018 [facility] ELECTROLYTES AGAP 14.4 meq/L 10.0 - 20.0 08/01/2018 [facility] ELECTROLYTES eGFR 73 mL/min/1.73m2 08/01/2018 Result Comment: The eGFR is calculated using the CKD-EPI formula. In most young, healthy individuals the eGFR will be >90 mL/min/1.73m2. The eGFR declines with age. An eGFR of 60-89 may be normal in some populations, particularly the elderly, for whom the CKD-EPI formula has not been extensively validated. Use of the eGFR is not recommended in the following populations: Individuals with unstable creatinine concentrations, including patients and those with serious co-morbid conditions. Patients with extremes in muscle mass or diet. The data above are obtained from the National Kidney Disease Education Program (NKDEP) which additionally recommends that when the eGFR is used in patients with extremes of body mass index for purposes of drug dosing, the eGFR should be multiplied by the estimated BMI. [facility] ELECTROLYTES Sodium Lvl 143 meq/L 135 - 145 08/01/2018 [facility] ELECTROLYTES Creatinine Lvl 0.96 mg/dL 0.50 - 1.40 08/01/2018 [facility] ELECTROLYTES CO2 29 meq/L 24 - 32 08/01/2018 [facility] ELECTROLYTES Potassium Lvl 4.4 meq/L 3.5 - 5.1 08/01/2018 [facility] ELECTROLYTES Calcium Lvl 8.6 mg/dL 8.5 - 10.5 08/01/2018 [facility] ELECTROLYTES Chloride Lvl 104 meq/L 95 - 109 08/01/2018 [facility] ELECTROLYTES Glucose Lvl 152 mg/dL 70 - 99 08/01/2018 [facility] ELECTROLYTES BUN 18 mg/dL 7 - 22 08/01/2018 [facility] Chest 1view DX Chest 1view DX Clinical Indication:42 years Female with Coughing - persistent cough Comparison: Chest x-ray 07/28/2018 FINDINGS: Lines: None. The single frontal chest radiograph shows normal lung volumes. No interstitial or airspace opacities. No pleural effusion. No pneumothorax. Cardiac silhouette is normal. Pulmonary vasculature is normal. The trachea is midline. There are no acute osseous abnormalities noted. IMPRESSION: No acute cardiopulmonary abnormality. 07/31/2018 - - Read by: Daryl Aldrich MD Dictated Date/time: 08/01/18 07:10 Electronically Signed by: Daryl Aldrich MD 08/01/18 07:11 FINAL REPORT [facility] LIPIDS LDL (Calculated) 77 mg/dL <=99 mg/dL 07/30/2018 [facility] LIPIDS CHD Risk 3.58 3.90 - 5.80 07/30/2018 [facility] LIPIDS HDL 36 mg/dL >=61 mg/dL 07/30/2018 [facility] LIPIDS Trig 81 mg/dL <=149 mg/dL 07/30/2018 [facility] LIPIDS Chol 129 mg/dL <=199 mg/dL 07/30/2018 [facility] LIPIDS VLDL 16 07/30/2018 [facility] CHEM PANEL Phosphorus 3.1 mg/dL 2.5 - 4.5 07/29/2018 [facility] CHEM PANEL eGFR 65 mL/min/1.73m2 07/29/2018 Result Comment: The eGFR is calculated using the CKD-EPI formula. In most young, healthy individuals the eGFR will be >90 mL/min/1.73m2. The eGFR declines with age. An eGFR of 60-89 may be normal in some populations, particularly the elderly, for whom the CKD-EPI formula has not been extensively validated. Use of the eGFR is not recommended in the following populations: Individuals with unstable creatinine concentrations, including patients and those with serious co-morbid conditions. Patients with extremes in muscle mass or diet. The data above are obtained from the National Kidney Disease Education Program (NKDEP) which additionally recommends that when the eGFR is used in patients with extremes of body mass index for purposes of drug dosing, the eGFR should be multiplied by the estimated BMI. [facility] CHEM PANEL Glucose Lvl 128 mg/dL 70 - 99 07/29/2018 [facility] CHEM PANEL Creatinine Lvl 1.06 mg/dL 0.50 - 1.40 07/29/2018 [facility] CHEM PANEL BUN 11 mg/dL 7 - 22 07/29/2018 [facility] CHEM PANEL Total Protein 7.8 g/dL 6.4 - 8.4 07/29/2018 [facility] CHEM PANEL Albumin Lvl 3.4 g/dL 3.5 - 5.0 07/29/2018 [facility] CHEM PANEL Potassium Lvl 4.1 meq/L 3.5 - 5.1 07/29/2018 [facility] CHEM PANEL Calcium Lvl 8.8 mg/dL 8.5 - 10.5 07/29/2018 [facility] CHEM PANEL CO2 22 meq/L 24 - 32 07/29/2018 [facility] CHEM PANEL Chloride Lvl 109 meq/L 95 - 109 07/29/2018 [facility] CHEM PANEL Sodium Lvl 139 meq/L 135 - 145 07/29/2018 [facility] CHEM PANEL ALT 20 unit/L 0 - 65 07/29/2018 [facility] CHEM PANEL AST 16 unit/L 0 - 37 07/29/2018 [facility] CHEM PANEL Bili Total 0.1 mg/dL 0.2 - 1.3 07/29/2018 [facility] CHEM PANEL Alk Phos 100 unit/L 39 - 136 07/29/2018 [facility] CHEM PANEL B/C Ratio 10 6 - 25 07/29/2018 [facility] CHEM PANEL AGAP 12.1 meq/L 10.0 - 20.0 07/29/2018 [facility] CHEM PANEL A/G Ratio 0.8 0.7 - 1.6 07/29/2018 [facility] CHEM PANEL Globulin 4.4 g/dL 2.7 - 4.2 07/29/2018 [facility] CHEM PANEL Magnesium Lvl 2.1 mg/dL 1.8 - 2.4 07/29/2018 [facility] HEMATOLOGY RDW 16.3 % 11.5 - 14.5 07/29/2018 [facility] HEMATOLOGY Platelet 323 K/CMM 133 - 450 07/29/2018 [facility] HEMATOLOGY MPV 8.8 fL 7.4 - 10.4 07/29/2018 [facility] HEMATOLOGY MCHC 32.9 g/dL 32.0 - 36.0 07/29/2018 [facility] HEMATOLOGY RBC 4.78 M/CMM 4.20 - 5.40 07/29/2018 [facility] HEMATOLOGY WBC 11.4 K/CMM 3.7 - 10.4 07/29/2018 [facility] HEMATOLOGY MCH 25.5 pg 27.0 - 31.0 07/29/2018 [facility] HEMATOLOGY MCV 77.6 fL 80.0 - 98.0 07/29/2018 [facility] Hct 37.1 % 36.0 - 48.0 07/29/2018 [facility] Hgb 12.2 g/dL 12.0 - 16.0 07/29/2018 [facility] Neutrophils # 10.2 K/CMM 1.5 - 8.1 07/29/2018 [facility] Basophils 0.1 % 0.0 - 1.0 07/29/2018 [facility] Microcyte 1+ *ABN* (07/29/18 2:00 AM) None Seen 07/29/2018 [facility] Monocytes # 0.5 K/CMM 0.0 - 0.8 07/29/2018 [facility] Lymphocytes # 0.7 K/CMM 1.0 - 5.5 07/29/2018 [facility] Segs 89.4 % 45.0 - 75.0 07/29/2018 [facility] Lymphocytes 6.0 % 20.0 - 40.0 07/29/2018 [facility] Monocytes 4.5 % 2.0 - 12.0 07/29/2018 [facility] VIRAL - SEROLOGY Influ B Negative (07/28/18 12:46 PM) Negative 07/28/2018 [facility] VIRAL - SEROLOGY Influ A Negative (07/28/18 12:46 PM) Negative 07/28/2018 [facility] CARDIAC ENZYMES Troponin-I null 0.00 - 0.40 07/28/2018 [facility] CARDIAC ENZYMES Troponin-I null 0.00 - 0.40 07/28/2018 [facility] HEMATOLOGY D-Dimer 0.28 ug/mL FEU 07/28/2018 [facility] CARDIAC ENZYMES Total CK 43 unit/L 12 - 191 07/28/2018 [facility] CARDIAC ENZYMES BNP 9 pg/mL <=100 pg/mL 07/28/2018 [facility] CARDIAC ENZYMES Troponin-I null 0.00 - 0.40 07/28/2018 [facility] CHEM PANEL eGFR 63 mL/min/1.73m2 07/28/2018 Result Comment: The eGFR is calculated using the CKD-EPI formula. In most young, healthy individuals the eGFR will be >90 mL/min/1.73m2. The eGFR declines with age. An eGFR of 60-89 may be normal in some populations, particularly the elderly, for whom the CKD-EPI formula has not been extensively validated. Use of the eGFR is not recommended in the following populations: Individuals with unstable creatinine concentrations, including patients and those with serious co-morbid conditions. Patients with extremes in muscle mass or diet. The data above are obtained from the National Kidney Disease Education Program (NKDEP) which additionally recommends that when the eGFR is used in patients with extremes of body mass index for purposes of drug dosing, the eGFR should be multiplied by the estimated BMI. [facility] CHEM PANEL Alk Phos 99 unit/L 39 - 136 07/28/2018 [facility] CHEM PANEL Bili Total 0.2 mg/dL 0.2 - 1.3 07/28/2018 [facility] CHEM PANEL ALT 18 unit/L 0 - 65 07/28/2018 [facility] CHEM PANEL AST 11 unit/L 0 - 37 07/28/2018 [facility] CHEM PANEL Albumin Lvl 3.3 g/dL 3.5 - 5.0 07/28/2018 [facility] CHEM PANEL Calcium Lvl 8.2 mg/dL 8.5 - 10.5 07/28/2018 [facility] CHEM PANEL Total Protein 7.5 g/dL 6.4 - 8.4 07/28/2018 [facility] CHEM PANEL Chloride Lvl 110 meq/L 95 - 109 07/28/2018 [facility] CHEM PANEL CO2 23 meq/L 24 - 32 07/28/2018 [facility] CHEM PANEL Sodium Lvl 139 meq/L 135 - 145 07/28/2018 [facility] CHEM PANEL Potassium Lvl 3.5 meq/L 3.5 - 5.1 07/28/2018 [facility] CHEM PANEL BUN 13 mg/dL 7 - 22 07/28/2018 [facility] CHEM PANEL Creatinine Lvl 1.10 mg/dL 0.50 - 1.40 07/28/2018 [facility] CHEM PANEL Glucose Lvl 118 mg/dL 70 - 99 07/28/2018 [facility] CHEM PANEL AGAP 9.5 meq/L 10.0 - 20.0 07/28/2018 [facility] CHEM PANEL Globulin 4.2 g/dL 2.7 - 4.2 07/28/2018 [facility] CHEM PANEL A/G Ratio 0.8 0.7 - 1.6 07/28/2018 [facility] CHEM PANEL B/C Ratio 12 6 - 25 07/28/2018 [facility] ENDOCRINOLOGY S Preg Negative *NA* (07/28/18 12:32 AM) Negative 07/28/2018 [facility] HEMATOLOGY Monocytes # 0.5 K/CMM 0.0 - 0.8 07/28/2018 [facility] Eosinophils # 0.1 K/CMM 0.0 - 0.5 07/28/2018 [facility] Basophils # 0.1 K/CMM 0.0 - 0.2 07/28/2018 [facility] Microcyte 1+ *ABN* (07/28/18 12:32 AM) None Seen 07/28/2018 [facility] HEMATOLOGY Segs 78.0 % 45.0 - 75.0 07/28/2018 [facility] Lymphocytes 16.1 % 20.0 - 40.0 07/28/2018 [facility] Monocytes 4.4 % 2.0 - 12.0 07/28/2018 [facility] Eosinophils 1.0 % 0.0 - 4.0 07/28/2018 [facility] Basophils 0.5 % 0.0 - 1.0 07/28/2018 [facility] Neutrophils # 8.6 K/CMM 1.5 - 8.1 07/28/2018 [facility] Lymphocytes # 1.8 K/CMM 1.0 - 5.5 07/28/2018 [facility] RBC 4.89 M/CMM 4.20 - 5.40 07/28/2018 [facility] Hgb 12.1 g/dL 12.0 - 16.0 07/28/2018 [facility] MCV 77.9 fL 80.0 - 98.0 07/28/2018 [facility] MCH 24.8 pg 27.0 - 31.0 07/28/2018 [facility] WBC 11.0 K/CMM 3.7 - 10.4 07/28/2018 [facility] Platelet 294 K/CMM 133 - 450 07/28/2018 [facility] MPV 8.4 fL 7.4 - 10.4 07/28/2018 [facility] Hct 38.1 % 36.0 - 48.0 07/28/2018 [facility] MCHC 31.8 g/dL 32.0 - 36.0 07/28/2018 [facility] RDW 16.4 % 11.5 - 14.5 07/28/2018 [facility] INR 0.96 0.85 - 1.17 07/28/2018 [facility] PT 12.6 s 12.0 - 14.7 07/28/2018 [facility] HEMATOLOGY PTT 32.0 s 22.9 - 35.8 07/28/2018 [facility] Chest Pulmonary Embolism CTA Chest Pulmonary Embolism CTA Clinical Indication: Shortness of breath. History of pulmonary embolism. Comparison: None TECHNIQUE: Sequential trans-axial images were obtained thru the chest and upper abdomen after administration of iodinated contrast. Coronal, 3-D MIP and sagittal reconstructions were obtained. 100 mL of Omnipaque was used for the exam. CT imaging performed at this location utilizes radiation dose optimization techniques which include one or more of the following: -Automated exposure control -Adjustment of the mA and/or kV according to patient size -Use of iterative reconstruction technique CT Radiation Dose DLP 1109.22 mGy-cm FINDINGS: LUNG PARENCHYMA AND PLEURA: A mosaic pattern of groundglass opacities are seen within the lungs, which may represent small airways disease or air trapping. No focal lung consolidation is identified. There is no pleural effusion or pneumothorax. AIRWAY: There is mild tracheal narrowing, which may be due to tracheomalacia. Mild narrowing of the bronchus intermedius is also seen, which may be due to bronchospasm. MEDIASTINUM: No significant mediastinal lymphadenopathy. HEART: There are no significant coronary artery calcifications. The cardiac chambers are unremarkable. There is no pericardial effusion. VASCULAR STRUCTURES: There are no acute pulmonary emboli. The main, right and left pulmonary arteries are within normal limits. The great vessels are unremarkable. The thoracic aorta demonstrates no aneurysmal dilatation nor aortic dissection. The superior vena cava is unremarkable. OSSEOUS STRUCTURES: There are no definite significant osseous abnormalities seen. VISUALIZED UPPER ABDOMEN: The visualized upper abdomen is within normal limits. IMPRESSION: 1. No evidence of acute pulmonary embolism. 2. Mosaic pattern of groundglass opacity within both lungs, which may represent small airways disease or air trapping. 3. Mild narrowing of the trachea, which may be due to mild tracheomalacia SL: [id number] 07/27/2018 - - Read by: Franky Robles MD Dictated Date/time: 07/28/18 02:41 Electronically Signed by: Franky Robles MD 07/28/18 02:47 FINAL REPORT [facility] 1view DX Chest 1view DX Clinical Indication: Shortness of breath. Comparison: 03/03/2018 FINDINGS: AP view of the chest submitted for interpretation. Lungs are clear. Heart size is normal. Central pulmonary vasculature appears normal. No effusion. No pneumothorax. No radiographically apparent acute osseous abnormality. IMPRESSION: 1. No radiographically apparent acute cardiopulmonary process. SL: [id number] 07/27/2018 - - Read by: Isak Hernandez MD Dictated Date/time: 07/28/18 00:32 Electronically Signed by: Isak Hernandez MD 07/28/18 00:32 FINAL REPORT [facility] CARDIAC ENZYMES Troponin-I null 0.00 - 0.40 03/17/2018 [facility] CHEM PANEL Lipase Lvl 91 unit/L 73 - 393 03/17/2018 [facility] CHEM PANEL eGFR 93 mL/min/1.73m2 03/17/2018 Result Comment: The eGFR is calculated using the CKD-EPI formula. In most young, healthy individuals the eGFR will be >90 mL/min/1.73m2. The eGFR declines with age. An eGFR of 60-89 may be normal in some populations, particularly the elderly, for whom the CKD-EPI formula has not been extensively validated. Use of the eGFR is not recommended in the following populations: Individuals with unstable creatinine concentrations, including patients and those with serious co-morbid conditions. Patients with extremes in muscle mass or diet. The data above are obtained from the National Kidney Disease Education Program (NKDEP) which additionally recommends that when the eGFR is used in patients with extremes of body mass index for purposes of drug dosing, the eGFR should be multiplied by the estimated BMI. [facility] CHEM PANEL Alk Phos 98 unit/L 39 - 136 03/17/2018 [facility] CHEM PANEL AST 15 unit/L 0 - 37 03/17/2018 [facility] CHEM PANEL ALT 17 unit/L 0 - 65 03/17/2018 [facility] CHEM PANEL Albumin Lvl 3.4 g/dL 3.5 - 5.0 03/17/2018 [facility] CHEM PANEL BUN 13 mg/dL 7 - 22 03/17/2018 [facility] CHEM PANEL Glucose Lvl 84 mg/dL 70 - 99 03/17/2018 [facility] CHEM PANEL Chloride Lvl 106 meq/L 95 - 109 03/17/2018 [facility] CHEM PANEL Potassium Lvl 3.9 meq/L 3.5 - 5.1 03/17/2018 [facility] CHEM PANEL Sodium Lvl 141 meq/L 135 - 145 03/17/2018 [facility] CHEM PANEL Creatinine Lvl 0.79 mg/dL 0.50 - 1.40 03/17/2018 [facility] CHEM PANEL Total Protein 7.8 g/dL 6.4 - 8.4 03/17/2018 [facility] CHEM PANEL Calcium Lvl 8.8 mg/dL 8.5 - 10.5 03/17/2018 [facility] CHEM PANEL CO2 25 meq/L 24 - 32 03/17/2018 [facility] CHEM PANEL Bili Total 0.3 mg/dL 0.2 - 1.3 03/17/2018 [facility] CHEM PANEL A/G Ratio 0.8 0.7 - 1.6 03/17/2018 [facility] CHEM PANEL Globulin 4.4 g/dL 2.7 - 4.2 03/17/2018 [facility] CHEM PANEL B/C Ratio 16 6 - 25 03/17/2018 [facility] CHEM PANEL AGAP 13.9 meq/L 10.0 - 20.0 03/17/2018 [facility] HEMATOLOGY Basophils # 0.1 K/CMM 0.0 - 0.2 03/17/2018 [facility] Eosinophils # 0.2 K/CMM 0.0 - 0.5 03/17/2018 [facility] Microcyte 1+ *ABN* (03/16/18 10:56 PM) None Seen 03/17/2018 [facility] Lymphocytes # 3.6 K/CMM 1.0 - 5.5 03/17/2018 [facility] Neutrophils # 8.9 K/CMM 1.5 - 8.1 03/17/2018 [facility] Monocytes # 0.6 K/CMM 0.0 - 0.8 03/17/2018 [facility] Basophils 0.7 % 0.0 - 1.0 03/17/2018 [facility] Eosinophils 1.4 % 0.0 - 4.0 03/17/2018 [facility] Lymphocytes 27.3 % 20.0 - 40.0 03/17/2018 [facility] Monocytes 4.2 % 2.0 - 12.0 03/17/2018 [facility] Segs 66.4 % 45.0 - 75.0 03/17/2018 [facility] RDW 16.6 % 11.5 - 14.5 03/17/2018 [facility] MCHC 33.1 g/dL 32.0 - 36.0 03/17/2018 [facility] MCH 25.6 pg 27.0 - 31.0 03/17/2018 [facility] HEMATOLOGY MCV 77.4 fL 80.0 - 98.0 03/17/2018 [facility] HEMATOLOGY Hct 39.2 % 36.0 - 48.0 03/17/2018 [facility] HEMATOLOGY Hgb 13.0 g/dL 12.0 - 16.0 03/17/2018 [facility] HEMATOLOGY WBC 13.4 K/CMM 3.7 - 10.4 03/17/2018 [facility] HEMATOLOGY Platelet 292 K/CMM 133 - 450 03/17/2018 [facility] HEMATOLOGY RBC 5.07 M/CMM 4.20 - 5.40 03/17/2018 [facility] HEMATOLOGY MPV 8.8 fL 7.4 - 10.4 03/17/2018 [facility] URINE AND STOOL UA WBC 1 /HPF 0 - 5 03/17/2018 [facility] URINE AND STOOL UA Leuk Est Trace *ABN* (03/16/18 10:56 PM) Negative 03/17/2018 [facility] URINE AND STOOL UA Sq Epi Occasional /LPF Few /LPF 03/17/2018 [facility] URINE AND STOOL UA Nitrite Negative (03/16/18 10:56 PM) Negative 03/17/2018 [facility] URINE AND STOOL UA Blood Negative (03/16/18 10:56 PM) Negative 03/17/2018 [facility] URINE AND STOOL UA Bili Negative *NA* (03/16/18 10:56 PM) Negative 03/17/2018 [facility] URINE AND STOOL UA Ketones Negative mg/dL Negative mg/dL 03/17/2018 [facility] URINE AND STOOL UA Glucose Negative mg/dL Negative mg/dL 03/17/2018 [facility] URINE AND STOOL UA Protein Negative mg/dL Negative mg/dL 03/17/2018 [facility] URINE AND STOOL UA pH 6.0 5.0 - 8.0 03/17/2018 [facility] URINE AND STOOL UA Spec Grav 1.020 <=1.030 03/17/2018 [facility] URINE AND STOOL UA Turbidity Clear (03/16/18 10:56 PM) Clear 03/17/2018 [facility] URINE AND STOOL UA Color Yellow *NA* (03/16/18 10:56 PM) Yellow 03/17/2018 [facility] URINE AND STOOL UA Bacteria Few /HPF None Seen /HPF 03/17/2018 [facility] URINE AND STOOL UA RBC 2 /HPF 0 - 2 03/17/2018 [facility] URINE AND STOOL UA Urobilinogen <=1.0 mg/dL 0.1 - 1.0 03/17/2018 [facility] URINE CHEM U Preg Negative (03/16/18 10:56 PM) Negative 03/17/2018 [facility] ED Abdomen/Pelvis IV contrast only CT ED Abdomen/Pelvis IV contrast only CT Clinical Indication: Left-sided abdominal pain. Comparison: CT of the chest, abdomen and pelvis 03/12/2017. TECHNIQUE: Helical imaging was performed after injection of IV contrast, from the diaphragm through the symphysis with multiplanar reformations obtained. IV CONTRAST: 100 mL of Omnipaque GI CONTRAST: No oral contrast was administered. CT imaging performed at this location utilizes radiation dose optimization techniques which include one or more of the following: -Automated exposure control -Adjustment of the mA and/or kV according to patient size -Use of iterative reconstruction technique CT Radiation Dose DLP 1293.7 mGy-cm FINDINGS: LOWER CHEST: The lung bases are clear. LIVER: The liver parenchyma is normal in appearance without masses or intrahepatic biliary ductal dilatation. The portal vein is normal in caliber. BILIARY TREE: There is no significant biliary ductal dilatation. GALLBLADDER: The gallbladder is present. PANCREAS: The pancreas is unremarkable. The pancreatic duct is normal in caliber. SPLEEN: The spleen is normal in size and there are no parenchymal abnormalities. ADRENALS: The right adrenal gland is unremarkable. The left adrenal gland is unremarkable. KIDNEYS: The kidneys demonstrates normal contrast enhancement. There is no evidence of renal or ureteral calculi. There is no evidence of hydronephrosis. BOWEL: There is colonic diverticulosis without evidence of diverticulitis. A moderate amount of fecal material is noted within the colon. There is no evidence of bowel obstruction. APPENDIX: The appendix is within normal limits. PELVIS: The urinary bladder is unremarkable. The uterus and ovaries are unremarkable. PERITONEUM: There is no evidence for free intraperitoneal fluid or air. SOFT TISSUES: The soft tissues are unremarkable. There is no evidence of masses or hernias. LYMPH NODES: There is no evidence of mesenteric, retroperitoneal, or inguinal lymphadenopathy. VASCULATURE: The abdominal aorta is normal in caliber. The branches of the abdominal aorta are widely patent. MUSCULOSKELETAL: The visualized bony skeleton is unremarkable. IMPRESSION: 1. Colonic diverticulosis without evidence of diverticulitis. 2. No evidence of bowel obstruction. Appendix within normal limits. SL: [id number] 03/16/2018 - - Read by: Franky Robles MD Dictated Date/time: 10/08/18 01:08 Electronically Signed by: Franky Robles MD 03/17/18 01:15 FINAL REPORT [facility] URINE AND STOOL UA Urobilinogen <=1.0 mg/dL 0.1 - 1.0 03/03/2018 [facility] URINE AND STOOL UA Nitrite Negative (03/03/18 9:40 AM) Negative 03/03/2018 [facility] URINE AND STOOL UA Blood Negative (03/03/18 9:40 AM) Negative 03/03/2018 [facility] URINE AND STOOL UA Ketones Negative mg/dL Negative mg/dL 03/03/2018 [facility] URINE AND STOOL UA Bili Negative *NA* (03/03/18 9:40 AM) Negative 03/03/2018 [facility] URINE AND STOOL UA Glucose Negative mg/dL Negative mg/dL 03/03/2018 [facility] URINE AND STOOL UA Protein Negative mg/dL Negative mg/dL 03/03/2018 [facility] URINE AND STOOL UA Mucus Few /LPF None Seen /LPF 03/03/2018 [facility] URINE AND STOOL UA WBC 5 /HPF 0 - 5 03/03/2018 [facility] URINE AND STOOL UA RBC 2 /HPF 0 - 2 03/03/2018 [facility] URINE AND STOOL UA Sq Epi Occasional /LPF Few /LPF 03/03/2018 [facility] URINE AND STOOL UA Leuk Est Moderate *ABN* (03/03/18 9:40 AM) Negative 03/03/2018 [facility] URINE AND STOOL UA Spec Grav 1.014 <=1.030 03/03/2018 [facility] URINE AND STOOL UA pH 5.0 5.0 - 8.0 03/03/2018 [facility] URINE AND STOOL UA Turbidity Clear (03/03/18 9:40 AM) Clear 03/03/2018 [facility] URINE AND STOOL UA Color Yellow *NA* (03/03/18 9:40 AM) Yellow 03/03/2018 [facility] Culture: Urine <10,000 CFU/mL Skin Martina 03/03/2018 [facility] ELECTROLYTES AGAP 15.2 meq/L 10.0 - 20.0 03/03/2018 [facility] ELECTROLYTES eGFR 88 mL/min/1.73m2 03/03/2018 Result Comment: The eGFR is calculated using the CKD-EPI formula. In most young, healthy individuals the eGFR will be >90 mL/min/1.73m2. The eGFR declines with age. An eGFR of 60-89 may be normal in some populations, particularly the elderly, for whom the CKD-EPI formula has not been extensively validated. Use of the eGFR is not recommended in the following populations: Individuals with unstable creatinine concentrations, including patients and those with serious co-morbid conditions. Patients with extremes in muscle mass or diet. The data above are obtained from the National Kidney Disease Education Program (NKDEP) which additionally recommends that when the eGFR is used in patients with extremes of body mass index for purposes of drug dosing, the eGFR should be multiplied by the estimated BMI. [facility] ELECTROLYTES Sodium Lvl 144 meq/L 135 - 145 03/03/2018 [facility] ELECTROLYTES Creatinine Lvl 0.83 mg/dL 0.50 - 1.40 03/03/2018 [facility] ELECTROLYTES Potassium Lvl 4.2 meq/L 3.5 - 5.1 03/03/2018 [facility] ELECTROLYTES CO2 22 meq/L 24 - 32 03/03/2018 [facility] ELECTROLYTES Chloride Lvl 111 meq/L 95 - 109 03/03/2018 [facility] ELECTROLYTES Calcium Lvl 8.4 mg/dL 8.5 - 10.5 03/03/2018 [facility] ELECTROLYTES Glucose Lvl 97 mg/dL 70 - 99 03/03/2018 [facility] ELECTROLYTES BUN 9 mg/dL 7 - 22 03/03/2018 [facility] ENDOCRINOLOGY S Preg Negative *NA* (03/03/18 9:16 AM) Negative 03/03/2018 [facility] HEMATOLOGY Eosinophils # 0.2 K/CMM 0.0 - 0.5 03/03/2018 [facility] HEMATOLOGY Basophils # 0.1 K/CMM 0.0 - 0.2 03/03/2018 [facility] HEMATOLOGY Microcyte 1+ *ABN* (03/03/18 9:16 AM) None Seen 03/03/2018 [facility] HEMATOLOGY Lymphocytes 19.5 % 20.0 - 40.0 03/03/2018 [facility] HEMATOLOGY Segs 72.5 % 45.0 - 75.0 03/03/2018 [facility] HEMATOLOGY Monocytes 4.9 % 2.0 - 12.0 03/03/2018 [facility] HEMATOLOGY Basophils 1.1 % 0.0 - 1.0 03/03/2018 [facility] HEMATOLOGY Eosinophils 2.0 % 0.0 - 4.0 03/03/2018 [facility] Lymphocytes # 1.9 K/CMM 1.0 - 5.5 03/03/2018 [facility] Neutrophils # 7.2 K/CMM 1.5 - 8.1 03/03/2018 [facility] Monocytes # 0.5 K/CMM 0.0 - 0.8 03/03/2018 [facility] D-Dimer 0.33 ug/mL FEU 03/03/2018 [facility] MPV 8.0 fL 7.4 - 10.4 03/03/2018 [facility] RDW 16.6 % 11.5 - 14.5 03/03/2018 [facility] Platelet 309 K/CMM 133 - 450 03/03/2018 [facility] MCHC 33.4 g/dL 32.0 - 36.0 03/03/2018 [facility] MCH 25.6 pg 27.0 - 31.0 03/03/2018 [facility] Hct 35.8 % 36.0 - 48.0 03/03/2018 [facility] RBC 4.65 M/CMM 4.20 - 5.40 03/03/2018 [facility] Hgb 11.9 g/dL 12.0 - 16.0 03/03/2018 [facility] WBC 10.0 K/CMM 3.7 - 10.4 03/03/2018 [facility] MCV 76.9 fL 80.0 - 98.0 03/03/2018 [facility] RAPID Grp A Strep Scr Negative (03/03/18 9:16 AM) Negative 03/03/2018 [facility] VIRAL - SEROLOGY Influ B Negative (03/03/18 9:16 AM) Negative 03/03/2018 [facility] VIRAL - SEROLOGY Influ A Negative (03/03/18 9:16 AM) Negative 03/03/2018 [facility] Chest 2 views DX Chest 2 views DX EXAM: Chest 2 views DX DATE: 03/03/2018 10:11 AM CDT INDICATION: - cough COMPARISON: 02/10/2018. IMPRESSION: Stable cardiac silhouette and mediastinum. No focal consolidation, significant pleural effusion or pneumothorax. SL: [id number] 03/03/2018 - - Read by: Federico Rocha MD Dictated Date/time: 03/03/18 10:27 Electronically Signed by: Federico Rocha MD 03/03/18 10:27 FINAL REPORT [facility] D-Dimer 0.35 ug/mL FEU 02/11/2018 [facility] CARDIAC ENZYMES Total CK 38 unit/L 12 - 191 02/10/2018 [facility] CARDIAC ENZYMES BNP 19 pg/mL <=100 pg/mL 02/10/2018 [facility] CARDIAC ENZYMES Troponin-I null 0.00 - 0.40 02/10/2018 [facility] CHEM PANEL eGFR 66 mL/min/1.73m2 02/10/2018 Result Comment: The eGFR is calculated using the CKD-EPI formula. In most young, healthy individuals the eGFR will be >90 mL/min/1.73m2. The eGFR declines with age. An eGFR of 60-89 may be normal in some populations, particularly the elderly, for whom the CKD-EPI formula has not been extensively validated. Use of the eGFR is not recommended in the following populations: Individuals with unstable creatinine concentrations, including patients and those with serious co-morbid conditions. Patients with extremes in muscle mass or diet. The data above are obtained from the National Kidney Disease Education Program (NKDEP) which additionally recommends that when the eGFR is used in patients with extremes of body mass index for purposes of drug dosing, the eGFR should be multiplied by the estimated BMI. [facility] CHEM PANEL Potassium Lvl 3.5 meq/L 3.5 - 5.1 02/10/2018 [facility] CHEM PANEL Chloride Lvl 108 meq/L 95 - 109 02/10/2018 [facility] CHEM PANEL Calcium Lvl 9.7 mg/dL 8.5 - 10.5 02/10/2018 [facility] CHEM PANEL CO2 31 meq/L 24 - 32 02/10/2018 [facility] CHEM PANEL Sodium Lvl 143 meq/L 135 - 145 02/10/2018 [facility] CHEM PANEL Creatinine Lvl 1.05 mg/dL 0.50 - 1.40 02/10/2018 [facility] CHEM PANEL ALT 18 unit/L 0 - 65 02/10/2018 [facility] CHEM PANEL Albumin Lvl 3.3 g/dL 3.5 - 5.0 02/10/2018 [facility] CHEM PANEL Alk Phos 97 unit/L 39 - 136 02/10/2018 [facility] CHEM PANEL AST 12 unit/L 0 - 37 02/10/2018 [facility] CHEM PANEL Total Protein 7.5 g/dL 6.4 - 8.4 02/10/2018 [facility] CHEM PANEL Bili Total null 0.2 - 1.3 02/10/2018 [facility] CHEM PANEL BUN 13 mg/dL 7 - 22 02/10/2018 [facility] CHEM PANEL Glucose Lvl 93 mg/dL 70 - 99 02/10/2018 [facility] CHEM PANEL Globulin 4.2 g/dL 2.7 - 4.2 02/10/2018 [facility] CHEM PANEL A/G Ratio 0.8 0.7 - 1.6 02/10/2018 [facility] CHEM PANEL B/C Ratio 12 6 - 25 02/10/2018 [facility] CHEM PANEL AGAP 7.5 meq/L 10.0 - 20.0 02/10/2018 [facility] ENDOCRINOLOGY S Preg Negative *NA* (02/10/18 5:18 PM) Negative 02/10/2018 [facility] HEMATOLOGY Neutrophils # 7.1 K/CMM 1.5 - 8.1 02/10/2018 [facility] Lymphocytes # 3.1 K/CMM 1.0 - 5.5 02/10/2018 [facility] Monocytes # 0.5 K/CMM 0.0 - 0.8 02/10/2018 [facility] Eosinophils # 0.2 K/CMM 0.0 - 0.5 02/10/2018 [facility] Basophils # 0.1 K/CMM 0.0 - 0.2 02/10/2018 [facility] Microcyte 1+ *ABN* (02/10/18 5:18 PM) None Seen 02/10/2018 [facility] Segs 64.6 % 45.0 - 75.0 02/10/2018 [facility] Lymphocytes 28.1 % 20.0 - 40.0 02/10/2018 [facility] Basophils 1.2 % 0.0 - 1.0 02/10/2018 [facility] Monocytes 4.2 % 2.0 - 12.0 02/10/2018 [facility] Eosinophils 1.9 % 0.0 - 4.0 02/10/2018 [facility] WBC 11.0 K/CMM 3.7 - 10.4 02/10/2018 [facility] Hgb 12.0 g/dL 12.0 - 16.0 02/10/2018 [facility] RBC 4.77 M/CMM 4.20 - 5.40 02/10/2018 [facility] RDW 16.0 % 11.5 - 14.5 02/10/2018 [facility] MCH 25.3 pg 27.0 - 31.0 02/10/2018 [facility] MCHC 33.3 g/dL 32.0 - 36.0 02/10/2018 [facility] Hct 36.2 % 36.0 - 48.0 02/10/2018 [facility] MCV 76.0 fL 80.0 - 98.0 02/10/2018 [facility] Platelet 292 K/CMM 133 - 450 02/10/2018 [facility] MPV 8.1 fL 7.4 - 10.4 02/10/2018 [facility] Chest 2 views DX Chest 2 views DX PROCEDURE: Chest, PA and lateral radiographs, 2 views. INDICATION: Chest pressure and cough. COMPARISON: Chest radiograph dated 09/29/2017 and 03/12/2017 FINDINGS: There are no pleural effusions. The lungs appear clear with normal pulmonary vasculature. The mediastinal silhouette and mayra appear normal. No evidence for an acute bony abnormality. IMPRESSION: 1. No evidence for an acute cardiopulmonary process. SL: [id number] 02/10/2018 - - Read by: Derina Hill MD Dictated Date/time: 02/10/18 17:46 Electronically Signed by: Derian Hill MD 02/10/18 17:47 FINAL REPORT [facility] Spine lumbar wo contrast MRI Spine lumbar wo contrast MRI Spine lumbar wo contrast MRI 11/18/2017 4:14 PM CDT CLINICAL: M54.5 Low back pain - M54.5 Low back pain COMPARISON: 02/17/2015 MRI, 07/21/2017 radiograph exam. TECHNIQUE: Sagittal T1, sagittal T2 with fat saturation, axial T1 and axial T2 images were obtained. No intravenous gadolinium was given. FINDINGS: The conus medullaris terminates at the L1-L2 level. T12-L1: There is preservation of the disc signal intensity, height, with no bulging, herniation, spinal stenosis, or neural foraminal stenosis. L1-L2: There is preservation of the disc signal intensity, height, with no bulging, herniation, spinal stenosis, or neural foraminal stenosis. L2-L3: There is preservation of the disc signal intensity, height, with no bulging, herniation, spinal stenosis, or neural foraminal stenosis. L3-L4: Stable disc desiccation. Development of right foraminal 5 mm disc protrusion is present, with moderate right foraminal stenosis and mass effect on the right L3 exiting nerve root. Mild left foraminal stenosis due to small disc osteophyte complex. Mild central canal stenosis is present due to the epidural lipomatosis. L4-L5: No central canal stenosis. Mild bilateral foraminal stenosis due to foraminal disc bulge encroachment. L5-S1: Enlargement of central disc extrusion, now measuring approximately 6 mm in AP dimension with moderate thecal sac stenosis. No foraminal stenosis. There is mild mass effect on bilateral S1 descending nerve roots by the disc extrusion. IMPRESSION: 1. L3-L4 right foraminal disc protrusion with moderate right foraminal stenosis and mass effect on right L3 exiting nerve root. L3-L4 mild central canal stenosis. 2. Enlargement of L5-S1 central disc extrusion since 2014, with mild mass effect on bilateral S1 descending nerve roots and moderate thecal sac stenosis. 11/18/2017 - - Read by: Sumeet Trevino MD Dictated Date/time: 11/19/17 07:08 Electronically Signed by: Sumeet Trevino MD 11/19/17 11:34 FINAL REPORT [facility] [place] URINE AND STOOL UA Spec Grav 1.021 <=1.030 09/29/2017 [facility] URINE AND STOOL UA pH 5.0 5.0 - 8.0 09/29/2017 [facility] URINE AND STOOL UA Glucose Negative mg/dL Negative mg/dL 09/29/2017 [facility] URINE AND STOOL UA Protein Negative mg/dL Negative mg/dL 09/29/2017 [facility] URINE AND STOOL UA Bili Negative *NA* (09/29/17 4:49 PM) Negative 09/29/2017 [facility] URINE AND STOOL UA Ketones Negative mg/dL Negative mg/dL 09/29/2017 [facility] URINE AND STOOL UA Blood Negative (09/29/17 4:49 PM) Negative 09/29/2017 [facility] URINE AND STOOL UA Leuk Est Negative (09/29/17 4:49 PM) Negative 09/29/2017 [facility] URINE AND STOOL UA Nitrite Negative (09/29/17 4:49 PM) Negative 09/29/2017 [facility] URINE AND STOOL UA WBC 2 /HPF 0 - 5 09/29/2017 [facility] URINE AND STOOL UA Sq Epi Few /LPF Few /LPF 09/29/2017 [facility] URINE AND STOOL UA RBC 5 /HPF 0 - 2 09/29/2017 [facility] URINE AND STOOL UA Mucus Few /LPF None Seen /LPF 09/29/2017 [facility] URINE AND STOOL UA Urobilinogen <=1.0 mg/dL 0.1 - 1.0 09/29/2017 [facility] URINE AND STOOL UA Color Yellow *NA* (09/29/17 4:49 PM) Yellow 09/29/2017 [facility] URINE AND STOOL UA Turbidity Clear (09/29/17 4:49 PM) Clear 09/29/2017 [facility] URINE CHEM U Preg Negative (09/29/17 4:49 PM) Negative 09/29/2017 [facility] CHEM PANEL Lactic Acid Lvl 1.0 mMol/L 0.5 - 2.2 09/29/2017 [facility] ELECTROLYTES AGAP 9.9 meq/L 10.0 - 20.0 09/29/2017 [facility] ELECTROLYTES Globulin 4.3 g/dL 2.7 - 4.2 09/29/2017 [facility] ELECTROLYTES B/C Ratio 13 6 - 25 09/29/2017 [facility] ELECTROLYTES A/G Ratio 0.7 0.7 - 1.6 09/29/2017 [facility] ELECTROLYTES eGFR 98 mL/min/1.73m2 09/29/2017 Result Comment: The eGFR is calculated using the CKD-EPI formula. In most young, healthy individuals the eGFR will be >90 mL/min/1.73m2. The eGFR declines with age. An eGFR of 60-89 may be normal in some populations, particularly the elderly, for whom the CKD-EPI formula has not been extensively validated. Use of the eGFR is not recommended in the following populations: Individuals with unstable creatinine concentrations, including patients and those with serious co-morbid conditions. Patients with extremes in muscle mass or diet. The data above are obtained from the National Kidney Disease Education Program (NKDEP) which additionally recommends that when the eGFR is used in patients with extremes of body mass index for purposes of drug dosing, the eGFR should be multiplied by the estimated BMI. [facility] ELECTROLYTES Creatinine Lvl 0.76 mg/dL 0.50 - 1.40 09/29/2017 [facility] ELECTROLYTES Potassium Lvl 3.9 meq/L 3.5 - 5.1 09/29/2017 [facility] ELECTROLYTES Sodium Lvl 142 meq/L 135 - 145 09/29/2017 [facility] ELECTROLYTES CO2 25 meq/L 24 - 32 09/29/2017 [facility] ELECTROLYTES Calcium Lvl 8.6 mg/dL 8.5 - 10.5 09/29/2017 [facility] ELECTROLYTES Chloride Lvl 111 meq/L 95 - 109 09/29/2017 [facility] ELECTROLYTES Total Protein 7.5 g/dL 6.4 - 8.4 09/29/2017 [facility] ELECTROLYTES AST 20 unit/L 0 - 37 09/29/2017 [facility] ELECTROLYTES ALT 22 unit/L 0 - 65 09/29/2017 [facility] ELECTROLYTES Albumin Lvl 3.2 g/dL 3.5 - 5.0 09/29/2017 [facility] ELECTROLYTES Alk Phos 101 unit/L 39 - 136 09/29/2017 [facility] ELECTROLYTES Bili Total 0.2 mg/dL 0.2 - 1.3 09/29/2017 [facility] ELECTROLYTES Glucose Lvl 82 mg/dL 70 - 99 09/29/2017 [facility] ELECTROLYTES BUN 10 mg/dL 7 - 22 09/29/2017 [facility] HEMATOLOGY Microcyte 1+ *ABN* (09/29/17 2:44 PM) None Seen 09/29/2017 [facility] HEMATOLOGY Monocytes 4.3 % 2.0 - 12.0 09/29/2017 [facility] HEMATOLOGY Eosinophils 2.1 % 0.0 - 4.0 09/29/2017 [facility] HEMATOLOGY Segs 65.9 % 45.0 - 75.0 09/29/2017 [facility] HEMATOLOGY Lymphocytes # 3.5 K/CMM 1.0 - 5.5 09/29/2017 [facility] HEMATOLOGY Monocytes # 0.6 K/CMM 0.0 - 0.8 09/29/2017 [facility] HEMATOLOGY Eosinophils # 0.3 K/CMM 0.0 - 0.5 09/29/2017 [facility] HEMATOLOGY Lymphocytes 26.8 % 20.0 - 40.0 09/29/2017 [facility] HEMATOLOGY Basophils 0.9 % 0.0 - 1.0 09/29/2017 [facility] HEMATOLOGY Segs-Bands # 8.5 K/CMM 1.5 - 8.1 09/29/2017 [facility] HEMATOLOGY Basophils # 0.1 K/CMM 0.0 - 0.2 09/29/2017 [facility] HEMATOLOGY Hct 37.7 % 36.0 - 48.0 09/29/2017 [facility] HEMATOLOGY MCV 76.7 fL 80.0 - 98.0 09/29/2017 [facility] MCH 25.4 pg 27.0 - 31.0 09/29/2017 [facility] MCHC 33.1 g/dL 32.0 - 36.0 09/29/2017 [facility] RDW 16.1 % 11.5 - 14.5 09/29/2017 [facility] Hgb 12.5 g/dL 12.0 - 16.0 09/29/2017 [facility] Platelet 326 K/CMM 133 - 450 09/29/2017 [facility] MPV 8.3 fL 7.4 - 10.4 09/29/2017 [facility] RBC 4.91 M/CMM 4.20 - 5.40 09/29/2017 [facility] WBC 12.9 K/CMM 3.7 - 10.4 09/29/2017 [facility] Pulmonary Embolism CTA Chest Pulmonary Embolism CTA EXAM: CT CHEST WITH CONTRAST, PULMONARY EMBOLISM PROTOCOL DATE: 09/29/2017 2:35 PM CDT INDICATION: Cough. COMPARISON: 03/12/2017. TECHNIQUE: Helical CT angiography of the chest was performed from the lung bases through the thoracic inlet following the administration of intravenous contrast. Axial, coronal, and sagittal multiplanar reconstructions are provided for review. 3D reconstructions and MIP (Maximum Intensity Projection) images of the pulmonary arteries were also generated. IV contrast: 100 cc Omnipaque. Dose: XAE=410.95 mGy-cm FINDINGS: PULMONARY ARTERIES: No central or segmental pulmonary emboli are identified. The main pulmonary artery trunk as well as the left and right main pulmonary arteries are not enlarged. SYSTEMIC VESSELS: The thoracic aorta is normal in caliber without dissection or aneurysm. The great vessels appear unremarkable. HEART: There is no evidence of right ventricular strain. The cardiac chambers are unremarkable. There is no pericardial effusion. LUNGS AND PLEURA: No interstitial or alveolar airspace opacities are identified. No suspicious pulmonary nodules are present. No pleural effusions or pneumothorax. AIRWAY: The central airway is normal. MEDIASTINUM: No significant mediastinal lymphadenopathy. VISUALIZED UPPER ABDOMEN: The visualized upper abdomen is within normal limits. OSSEOUS STRUCTURES: No acute osseous abnormality. SOFT TISSUE: Unremarkable. IMPRESSION: No acute intrathoracic abnormality. No pulmonary embolism. SL: [id number] 09/29/2017 - - Read by: Rashaun Gonzalez MD Dictated Date/time: 09/29/17 18:26 Electronically Signed by: Rashaun Gonzalez MD 09/29/17 18:29 FINAL REPORT [facility] Chest 1view DX Chest 1view DX EXAM: Chest 1view DX DATE: 09/29/2017 2:31 PM CDT INDICATION: - SOB COMPARISON: None. IMPRESSION: Stable cardiac silhouette and mediastinum. No focal consolidation, significant pleural effusion or pneumothorax. SL: [id number] 09/29/2017 - - Read by: Federico Rocha MD Dictated Date/time: 09/29/17 15:05 Electronically Signed by: Federico Rocha MD 09/29/17 15:05 FINAL REPORT [facility] URINE AND STOOL UA Color Yellow *NA* (07/21/17 10:58 PM) Yellow 07/22/2017 [facility] URINE AND STOOL UA Turbidity Marked *ABN* (07/21/17 10:58 PM) Clear 07/22/2017 [facility] URINE AND STOOL UA Spec Grav 1.019 <=1.030 07/22/2017 [facility] URINE AND STOOL UA pH 7.0 5.0 - 8.0 07/22/2017 [facility] URINE AND STOOL UA Glucose Negative mg/dL Negative mg/dL 07/22/2017 [facility] URINE AND STOOL UA Protein Negative mg/dL Negative mg/dL 07/22/2017 [facility] URINE AND STOOL UA Ketones Negative mg/dL Negative mg/dL 07/22/2017 [facility] URINE AND STOOL UA Blood Negative (07/21/17 10:58 PM) Negative 07/22/2017 [facility] URINE AND STOOL UA Bili Negative *NA* (07/21/17 10:58 PM) Negative 07/22/2017 [facility] URINE AND STOOL UA Leuk Est Trace *ABN* (07/21/17 10:58 PM) Negative 07/22/2017 [facility] URINE AND STOOL UA Nitrite Negative (07/21/17 10:58 PM) Negative 07/22/2017 [facility] URINE AND STOOL UA WBC 6 /HPF 0 - 5 07/22/2017 [facility] URINE AND STOOL UA Sq Epi Many /LPF Few /LPF 07/22/2017 [facility] URINE AND STOOL UA Amorph Anita Few /HPF None Seen /HPF 07/22/2017 [facility] URINE AND STOOL UA RBC 2 /HPF 0 - 2 07/22/2017 [facility] URINE AND STOOL UA Urobilinogen <=1.0 mg/dL 0.1 - 1.0 07/22/2017 [facility] URINE CHEM U Preg Negative (07/21/17 10:58 PM) Negative 07/22/2017 [facility] Spine thoracic 2 views DX Spine thoracic 2 views DX THORACIC SPINE RADIOGRAPH 2 VIEWS INDICATION: Posttraumatic thoracic spine pain COMPARISON: None DISCUSSION: Vertebral body alignment is within normal limits. The disc spaces are maintained. The bones appear well mineralized. No acute compression or displaced fractures are identified. The paravertebral soft tissues are grossly unremarkable. IMPRESSION: Unremarkable radiographic appearance of the thoracic spine. SL:16 07/21/2017 - - Read by: Bossman Mattson MD Dictated Date/time: 07/21/17 23:46 Electronically Signed by: Bossman Mattson MD 07/21/17 23:48 FINAL REPORT [facility] Spine lumbar 2 or 3 views DX Spine lumbar 2 or 3 views DX Clinical Indication: - pain. Comparison: None FINDINGS: The 3 views of the lumbar spine show five non rib bearing lumbar vertebral segments. VERTEBRAL BODIES: There is normal alignment. There are no fractures or spondylolisthesis. DISKS: The disc spaces are normal. POSTERIOR ELEMENTS: The spinous processes and transverse processes are normal. The facet joints appear unremarkable. OTHER: The paraspinal soft tissues appear unremarkable. The visualized sacroiliac joints are unremarkable. If there is further concern or neurological abnormalities on clinical exam, MRI or CT of the lumbar spine may be performed for complete assessment. IMPRESSION: No fracture or subluxation SL: [id number] 07/21/2017 - - Read by: Talia Bennett MD Dictated Date/time: 07/21/17 23:47 Electronically Signed by: Talia Bennett MD 07/21/17 23:48 FINAL REPORT [facility] TOXICOLOGY Vanco Tr TND 0800 03/14/2017 [facility] TOXICOLOGY Vanco Tr 17.6 ug/ml 03/14/2017 [facility] MCH 26.4 pg 27.0 - 31.0 03/14/2017 [facility] HEMATOLOGY MCV 78.2 fL 80.0 - 98.0 03/14/2017 [facility] HEMATOLOGY Hct 32.8 % 36.0 - 48.0 03/14/2017 [facility] Hgb 11.1 g/dL 12.0 - 16.0 03/14/2017 [facility] MCHC 33.7 g/dL 32.0 - 36.0 03/14/2017 [facility] RBC 4.20 M/CMM 4.20 - 5.40 03/14/2017 [facility] HEMATOLOGY WBC 10.7 K/CMM 3.7 - 10.4 03/14/2017 [facility] HEMATOLOGY RDW 15.5 % 11.5 - 14.5 03/14/2017 [facility] HEMATOLOGY MPV 8.3 fL 7.4 - 10.4 03/14/2017 [facility] HEMATOLOGY Platelet 262 K/CMM 133 - 450 03/14/2017 [facility] TOXICOLOGY Vanco Tr 22.1 ug/ml 03/14/2017 [facility] TOXICOLOGY Vanco Tr TND 06:00 03/14/2017 [facility] CHEM PANEL eGFR 88 mL/min/1.73m2 03/13/2017 Result Comment: The eGFR is calculated using the CKD-EPI formula. In most young, healthy individuals the eGFR will be >90 mL/min/1.73m2. The eGFR declines with age. An eGFR of 60-89 may be normal in some populations, particularly the elderly, for whom the CKD-EPI formula has not been extensively validated. Use of the eGFR is not recommended in the following populations: Individuals with unstable creatinine concentrations, including patients and those with serious co-morbid conditions. Patients with extremes in muscle mass or diet. The data above are obtained from the National Kidney Disease Education Program (NKDEP) which additionally recommends that when the eGFR is used in patients with extremes of body mass index for purposes of drug dosing, the eGFR should be multiplied by the estimated BMI. [facility] CHEM PANEL Calcium Lvl 8.0 mg/dL 8.5 - 10.5 03/13/2017 [facility] CHEM PANEL Glucose Lvl 139 mg/dL 70 - 99 03/13/2017 [facility] CHEM PANEL CO2 25 meq/L 24 - 32 03/13/2017 [facility] CHEM PANEL AGAP 14.3 meq/L 10.0 - 20.0 03/13/2017 [facility] CHEM PANEL Sodium Lvl 140 meq/L 135 - 145 03/13/2017 [facility] CHEM PANEL Potassium Lvl 3.3 meq/L 3.5 - 5.1 03/13/2017 [facility] CHEM PANEL Chloride Lvl 104 meq/L 95 - 109 03/13/2017 [facility] CHEM PANEL BUN 11 mg/dL 7 - 22 03/13/2017 [facility] CHEM PANEL Creatinine Lvl 0.83 mg/dL 0.50 - 1.40 03/13/2017 [facility] RBC 4.39 M/CMM 4.20 - 5.40 03/13/2017 [facility] WBC 13.5 K/CMM 3.7 - 10.4 03/13/2017 [facility] MPV 8.1 fL 7.4 - 10.4 03/13/2017 [facility] RDW 15.6 % 11.5 - 14.5 03/13/2017 [facility] Platelet 285 K/CMM 133 - 450 03/13/2017 [facility] MCHC 33.7 g/dL 32.0 - 36.0 03/13/2017 [facility] MCH 26.0 pg 27.0 - 31.0 03/13/2017 [facility] Hct 33.8 % 36.0 - 48.0 03/13/2017 [facility] MCV 77.1 fL 80.0 - 98.0 03/13/2017 [facility] Hgb 11.4 g/dL 12.0 - 16.0 03/13/2017 [facility] Basophils 0.5 % 0.0 - 1.0 03/13/2017 [facility] Lymphocytes # 3.7 K/CMM 1.0 - 5.5 03/13/2017 [facility] Segs-Bands # 9.1 K/CMM 1.5 - 8.1 03/13/2017 [facility] Eosinophils # 0.2 K/CMM 0.0 - 0.5 03/13/2017 [facility] Monocytes # 0.5 K/CMM 0.0 - 0.8 03/13/2017 [facility] Microcyte 1+ *ABN* (03/13/17 4:59 AM) None Seen 03/13/2017 [facility] Basophils # 0.1 K/CMM 0.0 - 0.2 03/13/2017 [facility] Lymphocytes 27.6 % 20.0 - 40.0 03/13/2017 [facility] Segs 66.9 % 45.0 - 75.0 03/13/2017 [facility] Eosinophils 1.3 % 0.0 - 4.0 03/13/2017 [facility] Monocytes 3.7 % 2.0 - 12.0 03/13/2017 [facility] RAPID Grp A Strep Scr Negative (03/12/17 5:50 PM) Negative 03/12/2017 [facility] VIRAL - SEROLOGY Influ B Negative (03/12/17 5:50 PM) Negative 03/12/2017 [facility] VIRAL - SEROLOGY Influ A Negative (03/12/17 5:50 PM) Negative 03/12/2017 [facility] URINE AND STOOL UA Color Ltyellow 03/12/2017 [facility] URINE AND STOOL UA Urobilinogen <=1.0 mg/dL 0.1 - 1.0 03/12/2017 [facility] URINE AND STOOL UA Bacteria Occasional /HPF None Seen /HPF 03/12/2017 [facility] URINE AND STOOL UA RBC 3 /HPF 0 - 2 03/12/2017 [facility] URINE AND STOOL UA Nitrite Negative (03/12/17 4:14 PM) Negative 03/12/2017 [facility] URINE AND STOOL UA pH 5.0 5.0 - 8.0 03/12/2017 [facility] URINE AND STOOL UA Glucose Negative mg/dL Negative mg/dL 03/12/2017 [facility] URINE AND STOOL UA Protein Negative mg/dL Negative mg/dL 03/12/2017 [facility] URINE AND STOOL UA Ketones Negative mg/dL Negative mg/dL 03/12/2017 [facility] URINE AND STOOL UA WBC 3 /HPF 0 - 5 03/12/2017 [facility] URINE AND STOOL UA Leuk Est Moderate *ABN* (03/12/17 4:14 PM) Negative 03/12/2017 [facility] URINE AND STOOL UA Sq Epi Few /LPF Few /LPF 03/12/2017 [facility] URINE AND STOOL UA Blood Moderate *ABN* (03/12/17 4:14 PM) Negative 03/12/2017 [facility] URINE AND STOOL UA Bili Negative *NA* (03/12/17 4:14 PM) Negative 03/12/2017 [facility] URINE AND STOOL UA Turbidity Slight *ABN* (03/12/17 4:14 PM) Clear 03/12/2017 [facility] URINE AND STOOL UA Spec Grav 1.016 <=1.030 03/12/2017 [facility] URINE CHEM U Preg Negative (03/12/17 4:14 PM) Negative 03/12/2017 [facility] CHEM PANEL eGFR 79 mL/min/1.73m2 03/12/2017 Result Comment: The eGFR is calculated using the CKD-EPI formula. In most young, healthy individuals the eGFR will be >90 mL/min/1.73m2. The eGFR declines with age. An eGFR of 60-89 may be normal in some populations, particularly the elderly, for whom the CKD-EPI formula has not been extensively validated. Use of the eGFR is not recommended in the following populations: Individuals with unstable creatinine concentrations, including patients and those with serious co-morbid conditions. Patients with extremes in muscle mass or diet. The data above are obtained from the National Kidney Disease Education Program (NKDEP) which additionally recommends that when the eGFR is used in patients with extremes of body mass index for purposes of drug dosing, the eGFR should be multiplied by the estimated BMI. [facility] CHEM PANEL AGAP 11.9 meq/L 10.0 - 20.0 03/12/2017 [facility] CHEM PANEL B/C Ratio 12 6 - 25 03/12/2017 [facility] CHEM PANEL Bili Total 0.4 mg/dL 0.2 - 1.3 03/12/2017 [facility] CHEM PANEL Alk Phos 109 unit/L 39 - 136 03/12/2017 [facility] CHEM PANEL Sodium Lvl 141 meq/L 135 - 145 03/12/2017 [facility] CHEM PANEL Creatinine Lvl 0.91 mg/dL 0.50 - 1.40 03/12/2017 [facility] CHEM PANEL Potassium Lvl 3.9 meq/L 3.5 - 5.1 03/12/2017 [facility] CHEM PANEL Chloride Lvl 107 meq/L 95 - 109 03/12/2017 [facility] CHEM PANEL Total Protein 7.5 g/dL 6.4 - 8.4 03/12/2017 [facility] CHEM PANEL AST 15 unit/L 0 - 37 03/12/2017 [facility] CHEM PANEL ALT 17 unit/L 0 - 65 03/12/2017 [facility] CHEM PANEL Albumin Lvl 3.3 g/dL 3.5 - 5.0 03/12/2017 [facility] CHEM PANEL Glucose Lvl 102 mg/dL 70 - 99 03/12/2017 [facility] CHEM PANEL BUN 11 mg/dL 7 - 22 03/12/2017 [facility] CHEM PANEL A/G Ratio 0.8 0.7 - 1.6 03/12/2017 [facility] CHEM PANEL Globulin 4.2 g/dL 2.7 - 4.2 03/12/2017 [facility] CHEM PANEL CO2 26 meq/L 24 - 32 03/12/2017 [facility] CHEM PANEL Calcium Lvl 8.7 mg/dL 8.5 - 10.5 03/12/2017 [facility] CHEM PANEL Lipase Lvl 91 unit/L 73 - 393 03/12/2017 [facility] CHEM PANEL B/C Ratio 12 6 - 25 03/12/2017 [facility] CHEM PANEL AGAP 12.9 meq/L 10.0 - 20.0 03/12/2017 [facility] CHEM PANEL A/G Ratio 0.8 0.7 - 1.6 03/12/2017 [facility] CHEM PANEL Globulin 4.4 g/dL 2.7 - 4.2 03/12/2017 [facility] CHEM PANEL eGFR 76 mL/min/1.73m2 03/12/2017 Result Comment: The eGFR is calculated using the CKD-EPI formula. In most young, healthy individuals the eGFR will be >90 mL/min/1.73m2. The eGFR declines with age. An eGFR of 60-89 may be normal in some populations, particularly the elderly, for whom the CKD-EPI formula has not been extensively validated. Use of the eGFR is not recommended in the following populations: Individuals with unstable creatinine concentrations, including patients and those with serious co-morbid conditions. Patients with extremes in muscle mass or diet. The data above are obtained from the National Kidney Disease Education Program (NKDEP) which additionally recommends that when the eGFR is used in patients with extremes of body mass index for purposes of drug dosing, the eGFR should be multiplied by the estimated BMI. [facility] CHEM PANEL Chloride Lvl 106 meq/L 95 - 109 03/12/2017 [facility] CHEM PANEL Potassium Lvl 3.9 meq/L 3.5 - 5.1 03/12/2017 [facility] CHEM PANEL Sodium Lvl 140 meq/L 135 - 145 03/12/2017 [facility] CHEM PANEL Total Protein 7.7 g/dL 6.4 - 8.4 03/12/2017 [facility] CHEM PANEL Bili Total 0.4 mg/dL 0.2 - 1.3 03/12/2017 [facility] CHEM PANEL Alk Phos 110 unit/L 39 - 136 03/12/2017 [facility] CHEM PANEL AST 14 unit/L 0 - 37 03/12/2017 [facility] CHEM PANEL Calcium Lvl 8.9 mg/dL 8.5 - 10.5 03/12/2017 [facility] CHEM PANEL CO2 25 meq/L 24 - 32 03/12/2017 [facility] CHEM PANEL ALT 20 unit/L 0 - 65 03/12/2017 [facility] CHEM PANEL Albumin Lvl 3.3 g/dL 3.5 - 5.0 03/12/2017 [facility] CHEM PANEL Glucose Lvl 102 mg/dL 70 - 99 03/12/2017 [facility] CHEM PANEL Creatinine Lvl 0.94 mg/dL 0.50 - 1.40 03/12/2017 [facility] CHEM PANEL BUN 11 mg/dL 7 - 22 03/12/2017 [facility] ENDOCRINOLOGY S Preg Negative *NA* (03/12/17 4:01 PM) Negative 03/12/2017 [facility] HEMATOLOGY Eosinophils 0.3 % 0.0 - 4.0 03/12/2017 [facility] HEMATOLOGY Monocytes 4.7 % 2.0 - 12.0 03/12/2017 [facility] HEMATOLOGY Segs 87.0 % 45.0 - 75.0 03/12/2017 [facility] HEMATOLOGY Lymphocytes 7.3 % 20.0 - 40.0 03/12/2017 [facility] HEMATOLOGY Basophils # 0.1 K/CMM 0.0 - 0.2 03/12/2017 [facility] HEMATOLOGY Monocytes # 0.9 K/CMM 0.0 - 0.8 03/12/2017 [facility] HEMATOLOGY Segs-Bands # 16.9 K/CMM 1.5 - 8.1 03/12/2017 [facility] Basophils 0.7 % 0.0 - 1.0 03/12/2017 [facility] Lymphocytes # 1.4 K/CMM 1.0 - 5.5 03/12/2017 [facility] Microcyte 1+ *ABN* (03/12/17 4:01 PM) None Seen 03/12/2017 [facility] PTT 28.5 s 22.9 - 35.8 03/12/2017 [facility] HEMATOLOGY PT 13.1 s 12.0 - 14.7 03/12/2017 [facility] HEMATOLOGY INR 0.97 0.85 - 1.17 03/12/2017 [facility] HEMATOLOGY Platelet 302 K/CMM 133 - 450 03/12/2017 [facility] HEMATOLOGY MPV 8.2 fL 7.4 - 10.4 03/12/2017 [facility] HEMATOLOGY RBC 5.06 M/CMM 4.20 - 5.40 03/12/2017 [facility] WBC 19.5 K/CMM 3.7 - 10.4 03/12/2017 [facility] Hgb 13.0 g/dL 12.0 - 16.0 03/12/2017 [facility] HEMATOLOGY MCV 77.2 fL 80.0 - 98.0 03/12/2017 [facility] Hct 39.1 % 36.0 - 48.0 03/12/2017 [facility] MCHC 33.2 g/dL 32.0 - 36.0 03/12/2017 [facility] MCH 25.6 pg 27.0 - 31.0 03/12/2017 [facility] RDW 15.4 % 11.5 - 14.5 03/12/2017 [facility] Spine cervical wo contrast CT Spine cervical wo contrast CT EXAM: CT CERVICAL SPINE WITHOUT CONTRAST DATE: 03/12/2017 3:57 PM CDT INDICATION: Back pain. Fever. COMPARISON: 02/17/2015 TECHNIQUE: Multi-detector CT imaging of the cervical spine was performed without intravenous contrast. Coronal and sagittal reconstructions were obtained. CT Radiation Dose DLP 868.31 mGy-cm FINDINGS: There is straightening of the normal cervical lordosis. No abnormalities in sagittal alignment are identified. No acute fracture or subluxation is present. The vertebral body heights are maintained. The craniocervical junction is within normal limits. The prevertebral and paraspinal soft tissues are normal. No significant degenerative changes are identified, with preservation of the disc space heights. The lung apices are clear. The thyroid gland is unremarkable. IMPRESSION: No acute fracture or malalignment of the cervical spine. SL: [id number] 03/12/2017 - - Read by: Rashaun Gonzalez MD Dictated Date/time: 03/12/17 18:34 Electronically Signed by: Rashaun Gonzalez MD 03/12/17 18:40 FINAL REPORT [facility] Chest/Abdomen/Pelvis w IV contrast CT Chest/Abdomen/Pelvis w IV contrast CT EXAM: CT CHEST, ABDOMEN, AND PELVIS WITH CONTRAST DATE: 03/12/2017 3:57 PM CDT INDICATION: Back pain. Fever. COMPARISON: 11/05/2016. TECHNIQUE: Helical CT imaging of the chest, abdomen and pelvis was performed from thoracic inlet through the lesser trochanters following the administration of intravenous contrast. Axial, sagittal and coronal multiplanar reconstructions provided. IV contrast: [address] Radiation Dose: AYE=8638.79 mGy-cm FINDINGS: CHEST LUNG PARENCHYMA AND PLEURA: Airspace opacities are noted throughout the lungs. No pulmonary nodules or masses visualized. No pneumothorax or pleural effusion. AIRWAYS: The central airways are unremarkable. The trachea is midline. MEDIASTINUM: No significant mediastinal lymphadenopathy. HEART: The cardiac chambers are unremarkable. There is no pericardial effusion. VASCULAR: The aorta and pulmonary arteries are within normal limits. No aneurysmal dilatation is noted. AXILLAE AND LOWER NECK: Visible portions unremarkable. OSSEOUS STRUCTURES: No acute abnormality seen SOFT TISSUES: Unremarkable ABDOMEN AND PELVIS: LIVER: Unremarkable GALLBLADDER/BILIARY: Unremarkable PANCREAS: Unremarkable SPLEEN: Unremarkable ADRENALS: Unremarkable KIDNEYS AND URETERS: Subcentimeter cyst within the right kidney. BLADDER: Unremarkable STOMACH: Unremarkable BOWEL: Normal in course and caliber without focal wall thickening or evidence of obstruction. The appendix was not definitively visualized, however no inflammatory changes within the right lower quadrant are noted. PELVIS: No pelvic mass or adenopathy. PERITONEUM: No ascites or free air. LYMPH NODES: Unremarkable. VASCULAR: No aortic aneurysm or dissection OSSEOUS STRUCTURES: No acute abnormality seen SOFT TISSUES: Unremarkable IMPRESSION: 1. Patchy airspace opacities throughout the lungs, concerning for multifocal pneumonia or pneumonitis. 2. No acute osseous abnormality. SL: [id number] 03/12/2017 - - Read by: Rashaun Gonzalez MD Dictated Date/time: 03/12/17 18:59 Electronically Signed by: Rashaun Gonzalez MD 03/12/17 19:04 FINAL REPORT [facility] 1view DX Chest 1view DX Patient Name: JAROD MEYERS : 1975; Age: 41 years y/o Female MR: [id number] Study: Chest 1view DX 03/12/2017 3:41 PM CDT Ordering Physician: Clinical Indication: - back pain, fever; Comparison: None Chest one view There is nonspecific patchy infiltrate within both lungs, most prominent in the perihilar regions. There is no pleural effusion or pneumothorax. The heart size is normal. Mediastinal contours are normal. No bony abnormalities appreciated. IMPRESSION: Nonspecific bilateral patchy pulmonary infiltrates. Correlate clinically for pneumonia. SL: [id number] 03/12/2017 - - Read by: Tristan Zimmerman MD Dictated Date/time: 03/12/17 16:39 Electronically Signed by: Tristan Zimmerman MD 03/12/17 16:40 FINAL REPORT [facility] CARDIAC ENZYMES Troponin-I null 0.00 - 0.40 11/05/2016 [facility] CARDIAC ENZYMES CK MB Index null 0.0 - 2.5 11/05/2016 [facility] CARDIAC ENZYMES CK MB null 0.5 - 3.6 11/05/2016 [facility] CARDIAC ENZYMES Total CK 37 unit/L 12 - 191 11/05/2016 [facility] CARDIAC ENZYMES CK MB Index 2.9 0.0 - 2.5 11/05/2016 [facility] CARDIAC ENZYMES BNP 9 pg/mL <=100 pg/mL 11/05/2016 [facility] CARDIAC ENZYMES Troponin-I null 0.00 - 0.40 11/05/2016 [facility] CARDIAC ENZYMES Total CK 24 unit/L 12 - 191 11/05/2016 [facility] CARDIAC ENZYMES CK MB 0.7 ng/mL 0.5 - 3.6 11/05/2016 [facility] CHEM PANEL Magnesium Lvl 2.0 mg/dL 1.8 - 2.4 11/05/2016 [facility] CHEM PANEL Bili Total 0.2 mg/dL 0.2 - 1.3 11/05/2016 [facility] CHEM PANEL eGFR 92 mL/min/1.73m2 11/05/2016 Result Comment: The eGFR is calculated using the CKD-EPI formula. In most young, healthy individuals the eGFR will be >90 mL/min/1.73m2. The eGFR declines with age. An eGFR of 60-89 may be normal in some populations, particularly the elderly, for whom the CKD-EPI formula has not been extensively validated. Use of the eGFR is not recommended in the following populations: Individuals with unstable creatinine concentrations, including patients and those with serious co-morbid conditions. Patients with extremes in muscle mass or diet. The data above are obtained from the National Kidney Disease Education Program (NKDEP) which additionally recommends that when the eGFR is used in patients with extremes of body mass index for purposes of drug dosing, the eGFR should be multiplied by the estimated BMI. [facility] CHEM PANEL AGAP 10.6 meq/L 10.0 - 20.0 11/05/2016 [facility] CHEM PANEL B/C Ratio 16 6 - 25 11/05/2016 [facility] CHEM PANEL A/G Ratio 0.8 0.7 - 1.6 11/05/2016 [facility] CHEM PANEL Globulin 3.9 g/dL 2.7 - 4.2 11/05/2016 [facility] CHEM PANEL BUN 13 mg/dL 7 - 22 11/05/2016 [facility] CHEM PANEL Glucose Lvl 109 mg/dL 70 - 99 11/05/2016 [facility] CHEM PANEL Calcium Lvl 9.0 mg/dL 8.5 - 10.5 11/05/2016 [facility] CHEM PANEL Total Protein 6.9 g/dL 6.4 - 8.4 11/05/2016 [facility] CHEM PANEL AST 7 unit/L 0 - 37 11/05/2016 [facility] CHEM PANEL Sodium Lvl 140 meq/L 135 - 145 11/05/2016 [facility] CHEM PANEL Creatinine Lvl 0.81 mg/dL 0.50 - 1.40 11/05/2016 [facility] CHEM PANEL ALT 13 unit/L 0 - 65 11/05/2016 [facility] CHEM PANEL Alk Phos 97 unit/L 39 - 136 11/05/2016 [facility] CHEM PANEL Albumin Lvl 3.0 g/dL 3.5 - 5.0 11/05/2016 [facility] CHEM PANEL Chloride Lvl 106 meq/L 95 - 109 11/05/2016 [facility] CHEM PANEL Potassium Lvl 3.6 meq/L 3.5 - 5.1 11/05/2016 [facility] CHEM PANEL CO2 27 meq/L 24 - 32 11/05/2016 [facility] CHEM PANEL Lipase Lvl 96 unit/L 73 - 393 11/05/2016 [facility] ENDOCRINOLOGY S Preg Negative *NA* (11/04/16 11:02 PM) Negative 11/05/2016 [facility] HEMATOLOGY Monocytes # 0.7 K/CMM 0.0 - 0.8 11/05/2016 [facility] HEMATOLOGY Lymphocytes # 3.2 K/CMM 1.0 - 5.5 11/05/2016 [facility] HEMATOLOGY Segs-Bands # 7.1 K/CMM 1.5 - 8.1 11/05/2016 [facility] HEMATOLOGY Monocytes 5.9 % 2.0 - 12.0 11/05/2016 [facility] HEMATOLOGY Lymphocytes 28.4 % 20.0 - 40.0 11/05/2016 [facility] HEMATOLOGY Segs 63.7 % 45.0 - 75.0 11/05/2016 [facility] HEMATOLOGY Basophils 0.7 % 0.0 - 1.0 11/05/2016 [facility] HEMATOLOGY Eosinophils 1.3 % 0.0 - 4.0 11/05/2016 [facility] HEMATOLOGY Basophils # 0.1 K/CMM 0.0 - 0.2 11/05/2016 [facility] HEMATOLOGY Eosinophils # 0.1 K/CMM 0.0 - 0.5 11/05/2016 [facility] HEMATOLOGY Microcyte 1+ *ABN* (11/04/16 11:02 PM) None Seen 11/05/2016 [facility] PTT 29.2 s 22.9 - 35.8 11/05/2016 [facility] INR 1.01 0.85 - 1.17 11/05/2016 [facility] PT 13.5 s 12.0 - 14.7 11/05/2016 [facility] Platelet 280 K/CMM 133 - 450 11/05/2016 [facility] RDW 15.6 % 11.5 - 14.5 11/05/2016 [facility] MCHC 34.3 g/dL 32.0 - 36.0 11/05/2016 [facility] MCH 27.0 pg 27.0 - 31.0 11/05/2016 [facility] Hct 35.6 % 36.0 - 48.0 11/05/2016 [facility] Hgb 12.2 g/dL 12.0 - 16.0 11/05/2016 [facility] RBC 4.53 M/CMM 4.20 - 5.40 11/05/2016 [facility] WBC 11.1 K/CMM 3.7 - 10.4 11/05/2016 [facility] MCV 78.6 fL 80.0 - 98.0 11/05/2016 [facility] MPV 8.4 fL 7.4 - 10.4 11/05/2016 [facility] Chest Pulmonary Embolism CTA Chest Pulmonary Embolism CTA PROCEDURE: CTA CHEST WITH IV CONTRAST AND 2-D MIP RECONSTRUCTION PULMONARY ARTERIES INDICATION: Left-sided chest pain with shortness of breath. COMPARISON: 05/13/2016 CTA pulmonary arteries. TECHNIQUE: CTA of the pulmonary arteries was performed with 100 ml Omnipaque 350 intravenous contrast. Helical imaging performed apices to the lung bases. Multiplanar and 2-D MIP angiographic reconstructions are reviewed. TOTAL RADIATION DOSE: 946.15 mGy-cm. FINDINGS: PULMONARY ARTERIES: Normal enhancement without intraluminal filling defect. MEDIASTINUM: The thoracic aorta is normal. The mediastinal contents are normal. LUNGS: The lungs are clear. No pleural abnormality. UPPER ABDOMEN: Survey may be limited by early phase of contrast enhancement. No abnormality demonstrated. MUSCULOSKELETAL: The skeleton is intact. IMPRESSION: Negative. END REPORT SL: [id number] 11/05/2016 - - Read by: Truman Gant MD Dictated Date/time: 11/05/16 01:27 Electronically Signed by: Truman Gant MD 11/05/16 01:31 FINAL REPORT [facility] Chest 1view DX Chest 1view DX Exam: Chest X-Ray Clinical Indication: Chest pain. Technique: Frontal view of the chest is provided. Findings: Heart and mediastinum are normal. Lungs are clear. There are no pleural effusions. Impression: No acute intrathoracic disease. 11/04/2016 - - Read by: Zion Moreau MD Dictated Date/time: 11/04/16 23:32 Electronically Signed by: Zion Moreau MD 11/04/16 23:32 FINAL REPORT [facility] CARDIAC ENZYMES Troponin-I null 0.00 - 0.40 05/17/2016 [facility] URINE AND STOOL UA Urobilinogen <=1.0 mg/dL 0.1 - 1.0 05/17/2016 [facility] URINE AND STOOL UA Glucose Negative mg/dL Negative mg/dL 05/17/2016 [facility] URINE AND STOOL UA Ketones Negative mg/dL Negative mg/dL 05/17/2016 [facility] URINE AND STOOL UA Bili Negative *NA* (05/17/16 3:53 AM) Negative 05/17/2016 [facility] URINE AND STOOL UA Protein Negative mg/dL Negative mg/dL 05/17/2016 [facility] URINE AND STOOL UA Spec Grav 1.023 <=1.030 05/17/2016 [facility] URINE AND STOOL UA pH 5.0 5.0 - 8.0 05/17/2016 [facility] URINE AND STOOL UA Color Yellow *NA* (05/17/16 3:53 AM) Yellow 05/17/2016 [facility] URINE AND STOOL UA Turbidity Slight *ABN* (05/17/16 3:53 AM) Clear 05/17/2016 [facility] URINE AND STOOL UA Mucus Few /LPF None Seen /LPF 05/17/2016 [facility] URINE AND STOOL UA Trans Epi 1 /LPF <=0 /LPF 05/17/2016 [facility] URINE AND STOOL UA RBC 8 /HPF 0 - 2 05/17/2016 [facility] URINE AND STOOL UA Leuk Est Moderate *ABN* (05/17/16 3:53 AM) Negative 05/17/2016 [facility] URINE AND STOOL UA Sq Epi Many /LPF Few /LPF 05/17/2016 [facility] URINE AND STOOL UA WBC 11 /HPF 0 - 5 05/17/2016 [facility] URINE AND STOOL UA Blood Negative (05/17/16 3:53 AM) Negative 05/17/2016 [facility] URINE AND STOOL UA Nitrite Negative (05/17/16 3:53 AM) Negative 05/17/2016 [facility] URINE CHEM U Preg Negative (05/17/16 3:53 AM) Negative 05/17/2016 [facility] CHEM PANEL Lipase Lvl 228 unit/L 73 - 393 05/17/2016 [facility] CHEM PANEL eGFR 95 mL/min/1.73m2 05/17/2016 Result Comment: The eGFR is calculated using the CKD-EPI formula. In most young, healthy individuals the eGFR will be >90 mL/min/1.73m2. The eGFR declines with age. An eGFR of 60-89 may be normal in some populations, particularly the elderly, for whom the CKD-EPI formula has not been extensively validated. Use of the eGFR is not recommended in the following populations: Individuals with unstable creatinine concentrations, including patients and those with serious co-morbid conditions. Patients with extremes in muscle mass or diet. The data above are obtained from the National Kidney Disease Education Program (NKDEP) which additionally recommends that when the eGFR is used in patients with extremes of body mass index for purposes of drug dosing, the eGFR should be multiplied by the estimated BMI. [facility] CHEM PANEL Alk Phos 111 unit/L 39 - 136 05/17/2016 [facility] CHEM PANEL Bili Total 0.4 mg/dL 0.2 - 1.3 05/17/2016 [facility] CHEM PANEL AST 41 unit/L 0 - 37 05/17/2016 [facility] CHEM PANEL Albumin Lvl 3.4 g/dL 3.5 - 5.0 05/17/2016 [facility] CHEM PANEL Total Protein 7.3 g/dL 6.4 - 8.4 05/17/2016 [facility] CHEM PANEL Calcium Lvl 8.8 mg/dL 8.5 - 10.5 05/17/2016 [facility] CHEM PANEL ALT 50 unit/L 0 - 65 05/17/2016 [facility] CHEM PANEL CO2 25 meq/L 24 - 32 05/17/2016 [facility] CHEM PANEL Chloride Lvl 109 meq/L 95 - 109 05/17/2016 [facility] CHEM PANEL Sodium Lvl 142 meq/L 135 - 145 05/17/2016 [facility] CHEM PANEL Creatinine Lvl 0.79 mg/dL 0.50 - 1.40 05/17/2016 [facility] CHEM PANEL Potassium Lvl 3.7 meq/L 3.5 - 5.1 05/17/2016 [facility] CHEM PANEL Glucose Lvl 99 mg/dL 70 - 99 05/17/2016 [facility] CHEM PANEL BUN 13 mg/dL 7 - 22 05/17/2016 [facility] CHEM PANEL A/G Ratio 0.9 0.7 - 1.6 05/17/2016 [facility] CHEM PANEL Globulin 3.9 g/dL 2.7 - 4.2 05/17/2016 [facility] CHEM PANEL B/C Ratio 16 6 - 25 05/17/2016 [facility] CHEM PANEL AGAP 11.7 meq/L 10.0 - 20.0 05/17/2016 [facility] HEMATOLOGY Eosinophils 1.6 % 0.0 - 4.0 05/17/2016 [facility] HEMATOLOGY Basophils 0.9 % 0.0 - 1.0 05/17/2016 [facility] HEMATOLOGY Segs-Bands # 3.7 K/CMM 1.5 - 8.1 05/17/2016 [facility] HEMATOLOGY Monocytes 7.5 % 2.0 - 12.0 05/17/2016 [facility] HEMATOLOGY Monocytes # 0.6 K/CMM 0.0 - 0.8 05/17/2016 [facility] HEMATOLOGY Basophils # 0.1 K/CMM 0.0 - 0.2 05/17/2016 [facility] HEMATOLOGY Lymphocytes # 3.1 K/CMM 1.0 - 5.5 05/17/2016 [facility] HEMATOLOGY Eosinophils # 0.1 K/CMM 0.0 - 0.5 05/17/2016 [facility] HEMATOLOGY Lymphocytes 40.9 % 20.0 - 40.0 05/17/2016 [facility] HEMATOLOGY Segs 49.1 % 45.0 - 75.0 05/17/2016 [facility] HEMATOLOGY MPV 7.8 fL 7.4 - 10.4 05/17/2016 [facility] HEMATOLOGY WBC 7.5 K/CMM 3.7 - 10.4 05/17/2016 [facility] HEMATOLOGY RBC 4.45 M/CMM 4.20 - 5.40 05/17/2016 [facility] HEMATOLOGY Hct 35.5 % 36.0 - 48.0 05/17/2016 [facility] HEMATOLOGY MCH 25.8 pg 27.0 - 31.0 05/17/2016 [facility] HEMATOLOGY Hgb 11.5 g/dL 12.0 - 16.0 05/17/2016 [facility] HEMATOLOGY MCV 79.7 fL 80.0 - 98.0 05/17/2016 [facility] HEMATOLOGY MCHC 32.4 g/dL 32.0 - 36.0 05/17/2016 [facility] HEMATOLOGY RDW 18.7 % 11.5 - 14.5 05/17/2016 [facility] HEMATOLOGY Platelet 238 K/CMM 133 - 450 05/17/2016 [facility] Abdomen AP DX Abdomen AP DX ABDOMEN SUPINE CLINICAL INDICATION: Abdominal pain, acute; c/o left side abd pain. pt stated recently diagnosed with enlarged spleen COMPARISONS: 05/27/2014 FINDINGS: A single supine view of the abdomen was obtained. ABDOMEN A single view of the abdomen was obtained. No evidence of organomegaly. Bowel gas pattern: Moderate scattered feces supporting the clinical diagnosis of constipation.. Calcifications: No abnormal soft tissue calcifications. IMPRESSION: 1. Moderate scattered feces supporting the clinical diagnosis of constipation. SL: [id number] 05/17/2016 - - Read by: Irvin Mercedes DO Dictated Date/time: 05/17/16 05:26 Electronically Signed by: Irvin Mercedes DO 05/17/16 05:56 FINAL REPORT [facility] CARDIAC ENZYMES Troponin-I null 0.00 - 0.40 05/13/2016 [facility] IMMUNOLOGY [place] Negative (05/13/16 12:16 PM) Negative 05/13/2016 [facility] URINE AND STOOL UA Urobilinogen <=1.0 mg/dL 0.1 - 1.0 05/13/2016 [facility] URINE AND STOOL UA Bacteria Occasional /HPF None Seen /HPF 05/13/2016 [facility] URINE AND STOOL UA WBC 5 /HPF 0 - 5 05/13/2016 [facility] URINE AND STOOL UA Sq Epi Moderate /LPF Few /LPF 05/13/2016 [facility] URINE AND STOOL UA Leuk Est Moderate *ABN* (05/13/16 12:13 PM) Negative 05/13/2016 [facility] URINE AND STOOL UA Nitrite Negative (05/13/16 12:13 PM) Negative 05/13/2016 [facility] URINE AND STOOL UA Blood Negative (05/13/16 12:13 PM) Negative 05/13/2016 [facility] URINE AND STOOL UA Bili Negative *NA* (05/13/16 12:13 PM) Negative 05/13/2016 [facility] URINE AND STOOL UA Ketones Negative mg/dL Negative mg/dL 05/13/2016 [facility] URINE AND STOOL UA pH 5.0 5.0 - 8.0 05/13/2016 [facility] URINE AND STOOL UA Spec Grav 1.024 <=1.030 05/13/2016 [facility] URINE AND STOOL UA Turbidity Clear (05/13/16 12:13 PM) Clear 05/13/2016 [facility] URINE AND STOOL UA Glucose Negative mg/dL Negative mg/dL 05/13/2016 [facility] URINE AND STOOL UA Protein Negative mg/dL Negative mg/dL 05/13/2016 [facility] URINE AND STOOL UA Color Yellow *NA* (05/13/16 12:13 PM) Yellow 05/13/2016 [facility] CHEM PANEL Lactic Acid Lvl 0.6 mMol/L 0.5 - 2.2 05/13/2016 [facility] CARDIAC ENZYMES Troponin-I null 0.00 - 0.40 05/13/2016 [facility] CARDIAC ENZYMES CK MB 0.6 ng/mL 0.5 - 3.6 05/13/2016 [facility] CARDIAC ENZYMES Total CK 44 unit/L 12 - 191 05/13/2016 [facility] CARDIAC ENZYMES CK MB Index 1.4 0.0 - 2.5 05/13/2016 [facility] CHEM PANEL Procalcitonin Lvl 0.08 ng/mL 0.00 - 0.10 05/13/2016 [facility] CHEM PANEL eGFR 71 mL/min/1.73m2 05/13/2016 Result Comment: The eGFR is calculated using the CKD-EPI formula. In most young, healthy individuals the eGFR will be >90 mL/min/1.73m2. The eGFR declines with age. An eGFR of 60-89 may be normal in some populations, particularly the elderly, for whom the CKD-EPI formula has not been extensively validated. Use of the eGFR is not recommended in the following populations: Individuals with unstable creatinine concentrations, including patients and those with serious co-morbid conditions. Patients with extremes in muscle mass or diet. The data above are obtained from the National Kidney Disease Education Program (NKDEP) which additionally recommends that when the eGFR is used in patients with extremes of body mass index for purposes of drug dosing, the eGFR should be multiplied by the estimated BMI. [facility] CHEM PANEL Alk Phos 112 unit/L 39 - 136 05/13/2016 [facility] CHEM PANEL Bili Total 0.5 mg/dL 0.2 - 1.3 05/13/2016 [facility] CHEM PANEL B/C Ratio 14 6 - 25 05/13/2016 [facility] CHEM PANEL AGAP 12.1 meq/L 10.0 - 20.0 05/13/2016 [facility] CHEM PANEL A/G Ratio 0.9 0.7 - 1.6 05/13/2016 [facility] CHEM PANEL Globulin 3.6 g/dL 2.7 - 4.2 05/13/2016 [facility] CHEM PANEL AST 48 unit/L 0 - 37 05/13/2016 [facility] CHEM PANEL ALT 68 unit/L 0 - 65 05/13/2016 [facility] CHEM PANEL Albumin Lvl 3.4 g/dL 3.5 - 5.0 05/13/2016 [facility] CHEM PANEL Calcium Lvl 8.2 mg/dL 8.5 - 10.5 05/13/2016 [facility] CHEM PANEL Potassium Lvl 4.1 meq/L 3.5 - 5.1 05/13/2016 [facility] CHEM PANEL CO2 25 meq/L 24 - 32 05/13/2016 [facility] CHEM PANEL Chloride Lvl 107 meq/L 95 - 109 05/13/2016 [facility] CHEM PANEL Total Protein 7.0 g/dL 6.4 - 8.4 05/13/2016 [facility] CHEM PANEL BUN 14 mg/dL 7 - 22 05/13/2016 [facility] CHEM PANEL Glucose Lvl 97 mg/dL 70 - 99 05/13/2016 [facility] CHEM PANEL Creatinine Lvl 1.00 mg/dL 0.50 - 1.40 05/13/2016 [facility] CHEM PANEL Sodium Lvl 140 meq/L 135 - 145 05/13/2016 [facility] ENDOCRINOLOGY S Preg Negative *NA* (05/13/16 9:15 AM) Negative 05/13/2016 [facility] HEMATOLOGY Monocytes 10.0 % 2.0 - 12.0 05/13/2016 [facility] HEMATOLOGY Eosinophils 3.0 % 0.0 - 4.0 05/13/2016 [facility] HEMATOLOGY Lymphocytes 48.0 % 20.0 - 40.0 05/13/2016 [facility] HEMATOLOGY Segs 37.0 % 45.0 - 75.0 05/13/2016 [facility] HEMATOLOGY Bands 0.0 % 0.0 - 11.0 05/13/2016 [facility] HEMATOLOGY Monocytes # 0.9 K/CMM 0.0 - 0.8 05/13/2016 [facility] Eosinophils # 0.3 K/CMM 0.0 - 0.5 05/13/2016 [facility] Lymphocytes # 4.4 K/CMM 1.0 - 5.5 05/13/2016 [facility] Segs-Bands # 3.3 K/CMM 1.5 - 8.1 05/13/2016 [facility] Polychrom Slight 05/13/2016 [facility] Atypical Lymphs 2.0 % <=0.0 % 05/13/2016 [facility] Plt Morph Normal (05/13/16 9:15 AM) 05/13/2016 [facility] MCHC 32.7 g/dL 32.0 - 36.0 05/13/2016 [facility] MCH 26.2 pg 27.0 - 31.0 05/13/2016 [facility] [facility] MCV 80.1 fL 80.0 - 98.0 05/13/2016 [facility] Hct 34.6 % 36.0 - 48.0 05/13/2016 [facility] Hgb 11.3 g/dL 12.0 - 16.0 05/13/2016 [facility] WBC 8.8 K/CMM 3.7 - 10.4 05/13/2016 [facility] MPV 8.3 fL 7.4 - 10.4 05/13/2016 [facility] Platelet 231 K/CMM 133 - 450 05/13/2016 [facility] RDW 18.5 % 11.5 - 14.5 05/13/2016 [facility] RBC 4.32 M/CMM 4.20 - 5.40 05/13/2016 [facility] PTT 27.2 s 22.9 - 35.8 05/13/2016 [facility] INR 1.01 0.85 - 1.17 05/13/2016 [facility] PT 13.5 s 12.0 - 14.7 05/13/2016 [facility] VIRAL - SEROLOGY Influ A Negative (05/13/16 9:15 AM) Negative 05/13/2016 [facility] VIRAL - SEROLOGY Influ B Negative (05/13/16 9:15 AM) Negative 05/13/2016 [facility] Chest Pulmonary Embolism CTA Chest Pulmonary Embolism CTA Clinical Indication: Epigastric pain in left chest pain radiating to left arm, history of PE, cough and fever; Comparison: CT of the chest 07/02/2012 TECHNIQUE: Sequential trans-axial images were obtained thru the chest and upper abdomen after administration of iodinated contrast. Coronal and sagittal reconstructions were obtained. 75 cc of Omnipaque 350 was used for the exam. Dose: TLX=169 mGy-cm FINDINGS: LUNG PARENCHYMA AND PLEURA: There are no lung nodules. There is no significant interstitial lung disease. There are no pleural effusions. There is no pneumothorax. AIRWAY: The central airway is normal. MEDIASTINUM: No significant mediastinal lymphadenopathy. HEART: There is no evidence of RV strain. The cardiac chambers are otherwise unremarkable. There is no pericardial effusion. VASCULAR STRUCTURES: There are no segmental pulmonary emboli noted. The main pulmonary artery diameter is normal. The great vessels are unremarkable. The thoracic aorta is is free of aneurysm or dissection.. The superior vena cava is unremarkable. MUSCULOSKELETAL: No acute osseous abnormalities. VISUALIZED UPPER ABDOMEN: No acute abnormalities of the visualized upper abdomen. Splenomegaly. IMPRESSION: 1. No evidence of pulmonary emboli. 2. No acute thoracic abnormalities. 3. Main pulmonary artery is mildly dilated, which can be seen with pulmonary arterial hypertension. 4. Mild splenomegaly SL: [id number] 05/13/2016 - - Read by: Daryl Aldrich MD Dictated Date/time: 05/13/16 11:37 Electronically Signed by: Daryl Aldrich MD 05/13/16 11:41 FINAL REPORT [facility] Chest 1view DX Chest 1view DX CHEST, 1 VIEW HISTORY: Fever; chest pain COMPARISON: 04/19/2016 FINDINGS: The lungs are clear. No pleural effusion or pneumothorax. Heart size normal. No acute osseous abnormality. SL: [id number] 05/13/2016 - - Read by: Allan Serrato MD Dictated Date/time: 05/13/16 09:36 Electronically Signed by: Allan Serrato MD 05/13/16 09:36 FINAL REPORT [facility] URINE AND STOOL UA Spec Grav 1.024 <=1.030 04/20/2016 [facility] URINE AND STOOL UA Color Yellow *NA* (04/19/16 11:04 PM) Yellow 04/20/2016 [facility] URINE AND STOOL UA Turbidity Clear (04/19/16 11:04 PM) Clear 04/20/2016 [facility] URINE AND STOOL UA Sq Epi Few /LPF Few /LPF 04/20/2016 [facility] URINE AND STOOL UA Mucus Few /LPF None Seen /LPF 04/20/2016 [facility] URINE AND STOOL UA Nitrite Negative (04/19/16 11:04 PM) Negative 04/20/2016 [facility] URINE AND STOOL UA Leuk Est Trace *ABN* (04/19/16 11:04 PM) Negative 04/20/2016 [facility] URINE AND STOOL UA WBC 3 /HPF 0 - 5 04/20/2016 [facility] URINE AND STOOL UA RBC 24 /HPF 0 - 2 04/20/2016 [facility] URINE AND STOOL UA Urobilinogen <=1.0 mg/dL 0.1 - 1.0 04/20/2016 [facility] URINE AND STOOL UA Protein Negative mg/dL Negative mg/dL 04/20/2016 [facility] URINE AND STOOL UA pH 7.0 5.0 - 8.0 04/20/2016 [facility] URINE AND STOOL UA Ketones Negative mg/dL Negative mg/dL 04/20/2016 [facility] URINE AND STOOL UA Blood Small *ABN* (04/19/16 11:04 PM) Negative 04/20/2016 [facility] URINE AND STOOL UA Bili Negative *NA* (04/19/16 11:04 PM) Negative 04/20/2016 [facility] URINE AND STOOL UA Glucose Negative mg/dL Negative mg/dL 04/20/2016 [facility] URINE CHEM U Preg Negative (04/19/16 11:04 PM) Negative 04/20/2016 [facility] CHEM PANEL ALT 32 unit/L 0 - 65 04/20/2016 [facility] CHEM PANEL Bili Total 0.4 mg/dL 0.2 - 1.3 04/20/2016 [facility] CHEM PANEL Alk Phos 103 unit/L 39 - 136 04/20/2016 [facility] CHEM PANEL Albumin Lvl 3.2 g/dL 3.5 - 5.0 04/20/2016 [facility] CHEM PANEL CO2 26 meq/L 24 - 32 04/20/2016 [facility] CHEM PANEL AST 30 unit/L 0 - 37 04/20/2016 [facility] CHEM PANEL Total Protein 7.5 g/dL 6.4 - 8.4 04/20/2016 [facility] CHEM PANEL Calcium Lvl 8.5 mg/dL 8.5 - 10.5 04/20/2016 [facility] CHEM PANEL eGFR 78 mL/min/1.73m2 04/20/2016 Result Comment: The eGFR is calculated using the CKD-EPI formula. In most young, healthy individuals the eGFR will be >90 mL/min/1.73m2. The eGFR declines with age. An eGFR of 60-89 may be normal in some populations, particularly the elderly, for whom the CKD-EPI formula has not been extensively validated. Use of the eGFR is not recommended in the following populations: Individuals with unstable creatinine concentrations, including patients and those with serious co-morbid conditions. Patients with extremes in muscle mass or diet. The data above are obtained from the National Kidney Disease Education Program (NKDEP) which additionally recommends that when the eGFR is used in patients with extremes of body mass index for purposes of drug dosing, the eGFR should be multiplied by the estimated BMI. [facility] CHEM PANEL Creatinine Lvl 0.93 mg/dL 0.50 - 1.40 04/20/2016 [facility] CHEM PANEL BUN 11 mg/dL 7 - 22 04/20/2016 [facility] CHEM PANEL Sodium Lvl 140 meq/L 135 - 145 04/20/2016 [facility] CHEM PANEL Chloride Lvl 106 meq/L 95 - 109 04/20/2016 [facility] CHEM PANEL Potassium Lvl 3.7 meq/L 3.5 - 5.1 04/20/2016 [facility] CHEM PANEL Glucose Lvl 97 mg/dL 70 - 99 04/20/2016 [facility] CHEM PANEL Globulin 4.3 g/dL 2.7 - 4.2 04/20/2016 [facility] CHEM PANEL A/G Ratio 0.7 0.7 - 1.6 04/20/2016 [facility] CHEM PANEL B/C Ratio 12 6 - 25 04/20/2016 [facility] CHEM PANEL AGAP 11.7 meq/L 10.0 - 20.0 04/20/2016 [facility] CHEM PANEL Lactic Acid Lvl 0.8 mMol/L 0.5 - 2.2 04/20/2016 [facility] HEMATOLOGY WBC 6.7 K/CMM 3.7 - 10.4 04/20/2016 [facility] HEMATOLOGY RBC 4.72 M/CMM 4.20 - 5.40 04/20/2016 [facility] Hct 36.8 % 36.0 - 48.0 04/20/2016 [facility] Hgb 12.3 g/dL 12.0 - 16.0 04/20/2016 [facility] MCH 26.1 pg 27.0 - 31.0 04/20/2016 [facility] MCV 77.9 fL 80.0 - 98.0 04/20/2016 [facility] MCHC 33.5 g/dL 32.0 - 36.0 04/20/2016 [facility] Platelet 252 K/CMM 133 - 450 04/20/2016 [facility] RDW 15.6 % 11.5 - 14.5 04/20/2016 [facility] MPV 8.3 fL 7.4 - 10.4 04/20/2016 [facility] Segs 60.8 % 45.0 - 75.0 04/20/2016 [facility] Monocytes 7.2 % 2.0 - 12.0 04/20/2016 [facility] Lymphocytes 27.9 % 20.0 - 40.0 04/20/2016 [facility] Basophils 1.2 % 0.0 - 1.0 04/20/2016 [facility] Monocytes # 0.5 K/CMM 0.0 - 0.8 04/20/2016 [facility] Lymphocytes # 1.9 K/CMM 1.0 - 5.5 04/20/2016 [facility] Eosinophils 2.9 % 0.0 - 4.0 04/20/2016 [facility] Segs-Bands # 4.1 K/CMM 1.5 - 8.1 04/20/2016 [facility] Eosinophils # 0.2 K/CMM 0.0 - 0.5 04/20/2016 [facility] Microcyte 1+ *ABN* (04/19/16 10:27 PM) None Seen 04/20/2016 [facility] Basophils # 0.1 K/CMM 0.0 - 0.2 04/20/2016 [facility] VIRAL - SEROLOGY Influ B Negative (04/19/16 9:06 PM) Negative 04/20/2016 [facility] VIRAL - SEROLOGY Influ A Negative (04/19/16 9:06 PM) Negative 04/20/2016 [facility] Chest 2 views DX Chest 2 views DX Two-view chest x-ray compared to 07/17/2013. History: Chest pain Comments: The trachea is midline. The cardiomediastinal silhouette is normal in size. No pneumonia. No pleural effusions or pneumothorax. Impression: No acute cardiopulmonary disease. 04/19/2016 - - Read by: Coretta Short MD Dictated Date/time: 11/10/16 21:44 Electronically Signed by: Coretta Short MD 04/19/16 21:45 FINAL REPORT [facility] URINE AND STOOL UA Urobilinogen <=1.0 mg/dL 0.1 - 1.0 01/07/2016 [facility] URINE AND STOOL UA Bacteria Occasional /HPF None Seen /HPF 01/07/2016 [facility] URINE AND STOOL UA RBC 7 /HPF 0 - 2 01/07/2016 [facility] URINE AND STOOL UA WBC 8 /HPF 0 - 5 01/07/2016 [facility] URINE AND STOOL UA Blood Negative (01/07/16 3:02 AM) Negative 01/07/2016 [facility] URINE AND STOOL UA Bili Negative *NA* (01/07/16 3:02 AM) Negative 01/07/2016 [facility] URINE AND STOOL UA Mucus Few /LPF None Seen /LPF 01/07/2016 [facility] URINE AND STOOL UA Sq Epi Many /LPF Few /LPF 01/07/2016 [facility] URINE AND STOOL UA Leuk Est Large *ABN* (01/07/16 3:02 AM) Negative 01/07/2016 [facility] URINE AND STOOL UA Nitrite Negative (01/07/16 3:02 AM) Negative 01/07/2016 [facility] URINE AND STOOL UA Turbidity Slight *ABN* (01/07/16 3:02 AM) Clear 01/07/2016 [facility] URINE AND STOOL UA Color Yellow *NA* (01/07/16 3:02 AM) Yellow 01/07/2016 [facility] URINE AND STOOL UA Ketones Negative mg/dL Negative mg/dL 01/07/2016 [facility] URINE AND STOOL UA Spec Grav 1.026 <=1.030 01/07/2016 [facility] URINE AND STOOL UA Glucose Negative mg/dL Negative mg/dL 01/07/2016 [facility] URINE AND STOOL UA Protein Negative mg/dL Negative mg/dL 01/07/2016 [facility] URINE AND STOOL UA pH 6.0 5.0 - 8.0 01/07/2016 [facility] URINE CHEM U Preg Negative (01/07/16 3:02 AM) Negative 01/07/2016 [facility] CHEM PANEL Glucose Lvl 99 mg/dL 70 - 99 01/07/2016 [facility] CHEM PANEL eGFR 82 mL/min/1.73m2 01/07/2016 Result Comment: The eGFR is calculated using the CKD-EPI formula. In most young, healthy individuals the eGFR will be >90 mL/min/1.73m2. The eGFR declines with age. An eGFR of 60-89 may be normal in some populations, particularly the elderly, for whom the CKD-EPI formula has not been extensively validated. Use of the eGFR is not recommended in the following populations: Individuals with unstable creatinine concentrations, including patients and those with serious co-morbid conditions. Patients with extremes in muscle mass or diet. The data above are obtained from the National Kidney Disease Education Program (NKDEP) which additionally recommends that when the eGFR is used in patients with extremes of body mass index for purposes of drug dosing, the eGFR should be multiplied by the estimated BMI. [facility] CHEM PANEL BUN 14 mg/dL 7 - 22 01/07/2016 [facility] CHEM PANEL Creatinine Lvl 0.89 mg/dL 0.50 - 1.40 01/07/2016 [facility] CHEM PANEL Potassium Lvl 3.6 meq/L 3.5 - 5.1 01/07/2016 [facility] CHEM PANEL Sodium Lvl 139 meq/L 135 - 145 01/07/2016 [facility] CHEM PANEL Calcium Lvl 8.6 mg/dL 8.5 - 10.5 01/07/2016 [facility] CHEM PANEL Chloride Lvl 108 meq/L 95 - 109 01/07/2016 [facility] CHEM PANEL CO2 23 meq/L 24 - 32 01/07/2016 [facility] CHEM PANEL AGAP 11.6 meq/L 10.0 - 20.0 01/07/2016 [facility] MCHC 33.1 g/dL 32.0 - 36.0 01/07/2016 [facility] RDW 14.5 % 11.5 - 14.5 01/07/2016 [facility] Platelet 315 K/CMM 133 - 450 01/07/2016 [facility] MPV 8.1 fL 7.4 - 10.4 01/07/2016 [facility] MCV 80.4 fL 80.0 - 98.0 01/07/2016 [facility] MCH 26.6 pg 27.0 - 31.0 01/07/2016 [facility] Hct 38.7 % 36.0 - 48.0 01/07/2016 [facility] RBC 4.82 M/CMM 4.20 - 5.40 01/07/2016 [facility] Hgb 12.8 g/dL 12.0 - 16.0 01/07/2016 [facility] HEMATOLOGY WBC 14.6 K/CMM 3.7 - 10.4 01/07/2016 [facility] HEMATOLOGY Segs-Bands # 10.9 K/CMM 1.5 - 8.1 01/07/2016 [facility] HEMATOLOGY Lymphocytes # 2.7 K/CMM 1.0 - 5.5 01/07/2016 [facility] HEMATOLOGY Monocytes # 0.7 K/CMM 0.0 - 0.8 01/07/2016 [facility] HEMATOLOGY Eosinophils # 0.1 K/CMM 0.0 - 0.5 01/07/2016 [facility] Lymphocytes 18.5 % 20.0 - 40.0 01/07/2016 [facility] HEMATOLOGY Eosinophils 0.9 % 0.0 - 4.0 01/07/2016 [facility] Segs 74.8 % 45.0 - 75.0 01/07/2016 [facility] Monocytes 4.8 % 2.0 - 12.0 01/07/2016 [facility] Basophils 1.0 % 0.0 - 1.0 01/07/2016 [facility] Basophils # 0.1 K/CMM 0.0 - 0.2 01/07/2016 [facility] Spine cervical 2 or 3 view DX Spine cervical 2 or 3 view DX Spine cervical 2 or 3 view DX COMPARISON: 01/12/2014 CLINICAL HISTORY: Pain, Cervical region FINDINGS: There is no evidence for fracture or subluxation. The prevertebral soft tissues are within normal limits. No significant spondylosis or degenerative disc disease is noted. Rudimentary bilateral C7 cervical ribs are present. IMPRESSION: Negative study. No evidence for fracture or subluxation. SL: [id number] 01/07/2016 - - Read by: Tristan Zimmerman MD Dictated Date/time: 01/07/16 04:51 Electronically Signed by: Tristan Zimmerman MD 01/07/16 04:52 FINAL REPORT [facility] CHEM PANEL eGFR 69 mL/min/1.73m2 12/20/2015 Result Comment: The eGFR is calculated using the CKD-EPI formula. In most young, healthy individuals the eGFR will be >90 mL/min/1.73m2. The eGFR declines with age. An eGFR of 60-89 may be normal in some populations, particularly the elderly, for whom the CKD-EPI formula has not been extensively validated. Use of the eGFR is not recommended in the following populations: Individuals with unstable creatinine concentrations, including patients and those with serious co-morbid conditions. Patients with extremes in muscle mass or diet. The data above are obtained from the National Kidney Disease Education Program (NKDEP) which additionally recommends that when the eGFR is used in patients with extremes of body mass index for purposes of drug dosing, the eGFR should be multiplied by the estimated BMI. [facility] CHEM PANEL BUN 11 mg/dL 7 - 22 12/20/2015 [facility] CHEM PANEL Glucose Lvl 92 mg/dL 70 - 99 12/20/2015 [facility] CHEM PANEL Calcium Lvl 8.7 mg/dL 8.5 - 10.5 12/20/2015 [facility] CHEM PANEL Sodium Lvl 141 meq/L 135 - 145 12/20/2015 [facility] CHEM PANEL Creatinine Lvl 1.02 mg/dL 0.50 - 1.40 12/20/2015 [facility] CHEM PANEL Potassium Lvl 3.9 meq/L 3.5 - 5.1 12/20/2015 [facility] CHEM PANEL CO2 26 meq/L 24 - 32 12/20/2015 [facility] CHEM PANEL Chloride Lvl 106 meq/L 95 - 109 12/20/2015 [facility] CHEM PANEL Alk Phos 110 unit/L 39 - 136 12/20/2015 [facility] CHEM PANEL Bili Total 0.3 mg/dL 0.2 - 1.3 12/20/2015 [facility] CHEM PANEL Total Protein 7.3 g/dL 6.4 - 8.4 12/20/2015 [facility] CHEM PANEL Albumin Lvl 3.3 g/dL 3.5 - 5.0 12/20/2015 [facility] CHEM PANEL ALT 27 unit/L 0 - 65 12/20/2015 [facility] CHEM PANEL AST 17 unit/L 0 - 37 12/20/2015 [facility] CHEM PANEL A/G Ratio 0.8 0.7 - 1.6 12/20/2015 [facility] CHEM PANEL AGAP 12.9 meq/L 10.0 - 20.0 12/20/2015 [facility] CHEM PANEL Globulin 4.0 g/dL 2.0 - 4.0 12/20/2015 [facility] CHEM PANEL B/C Ratio 11 6 - 25 12/20/2015 [facility] HEMATOLOGY MPV 8.2 fL 7.4 - 10.4 12/20/2015 [facility] HEMATOLOGY Platelet 309 K/CMM 133 - 450 12/20/2015 [facility] MCH 26.8 pg 27.0 - 31.0 12/20/2015 [facility] MCV 81.3 fL 80.0 - 98.0 12/20/2015 [facility] RDW 14.3 % 11.5 - 14.5 12/20/2015 [facility] MCHC 32.9 g/dL 32.0 - 36.0 12/20/2015 [facility] WBC 16.6 K/CMM 3.7 - 10.4 12/20/2015 [facility] RBC 4.87 M/CMM 4.20 - 5.40 12/20/2015 [facility] Hct 39.6 % 36.0 - 48.0 12/20/2015 [facility] Hgb 13.0 g/dL 12.0 - 16.0 12/20/2015 [facility] Basophils # 0.2 K/CMM 0.0 - 0.2 12/20/2015 [facility] Segs-Bands # 13.1 K/CMM 1.5 - 8.1 12/20/2015 [facility] Monocytes 3.5 % 2.0 - 12.0 12/20/2015 [facility] Eosinophils 0.7 % 0.0 - 4.0 12/20/2015 [facility] Basophils 1.1 % 0.0 - 1.0 12/20/2015 [facility] Segs 79.3 % 45.0 - 75.0 12/20/2015 [facility] Lymphocytes 15.4 % 20.0 - 40.0 12/20/2015 [facility] Lymphocytes # 2.5 K/CMM 1.0 - 5.5 12/20/2015 [facility] Eosinophils # 0.1 K/CMM 0.0 - 0.5 12/20/2015 [facility] Monocytes # 0.6 K/CMM 0.0 - 0.8 12/20/2015 [facility] URINE AND STOOL UA Urobilinogen <=1.0 mg/dL 0.1 - 1.0 12/20/2015 [facility] URINE AND STOOL UA Sq Epi Occasional /LPF Few /LPF 12/20/2015 [facility] URINE AND STOOL UA WBC 2 /HPF 0 - 5 12/20/2015 [facility] URINE AND STOOL UA Leuk Est Small *ABN* (12/20/15 1:23 AM) Negative 12/20/2015 [facility] URINE AND STOOL UA Ketones Trace mg/dL Negative mg/dL 12/20/2015 [facility] URINE AND STOOL UA Bili Negative *NA* (12/20/15 1:23 AM) Negative 12/20/2015 [facility] URINE AND STOOL UA Glucose Negative mg/dL Negative mg/dL 12/20/2015 [facility] URINE AND STOOL UA Bacteria Occasional /HPF None Seen /HPF 12/20/2015 [facility] URINE AND STOOL UA Mucus Many /LPF None Seen /LPF 12/20/2015 [facility] URINE AND STOOL UA RBC 3 /HPF 0 - 2 12/20/2015 [facility] URINE AND STOOL UA Color Yellow *NA* (12/20/15 1:23 AM) Yellow 12/20/2015 [facility] URINE AND STOOL UA Turbidity Clear (12/20/15 1:23 AM) Clear 12/20/2015 [facility] URINE AND STOOL UA Blood Large *ABN* (12/20/15 1:23 AM) Negative 12/20/2015 [facility] URINE AND STOOL UA Nitrite Negative (12/20/15 1:23 AM) Negative 12/20/2015 [facility] URINE AND STOOL UA Protein Negative mg/dL Negative mg/dL 12/20/2015 [facility] URINE AND STOOL UA Spec Grav 1.026 <=1.030 12/20/2015 [facility] URINE AND STOOL UA pH 5.0 5.0 - 8.0 12/20/2015 [facility] URINE CHEM U Preg Negative (12/20/15 1:23 AM) Negative 12/20/2015 [facility] ED Abdomen/Pelvis IV contrast only CT ED Abdomen/Pelvis IV contrast only CT PROCEDURE: CT ABDOMEN AND PELVIS WITH CONTRAST. INDICATION: abdominal pain, vaginal bleeding COMPARISON: 08/02/2013 TECHNIQUE: CT of the abdomen and pelvis with intravenous contrast. Multiplanar reformats. IV CONTRAST: 100 cc Omnipaque 300 GI CONTRAST: none COMMENTS: Lung bases are clear. The spleen, adrenals, pancreas, gallbladder, liver, left kidney are unremarkable. There is a too small to characterize hypodensity in the right kidney. Feminine hygiene product noted. Left adnexal tiny probable cyst. Bladder incompletely distended thereby limiting its evaluation. No bowel obstruction. Portions of the colon are incompletely distended thereby limiting their evaluation. Appendix not visualized, but no focal right lower quadrant inflammatory changes. No free air. No acute or suspicious osseous abnormalities. No aortic aneurysm. IMPRESSION: 1. No definite acute abdominopelvic abnormality. Bladder incompletely distended thereby limiting its evaluation. Please correlate with urinalysis. SL: [id number] 12/20/2015 - - Read by: Jesus Chavarria MD Dictated Date/time: 12/20/15 02:49 Electronically Signed by: Jesus Chavarria MD 12/20/15 02:55 FINAL REPORT [facility] Spine Thoracic wo contrast MRI Spine Thoracic wo contrast MRI NAME: JAROD MEYERS : 1975 SEX: F Ordering Physician: Kevin Callahan Spine Thoracic wo contrast MRI : Feb 17, 2015 10:15:00 AM. CLINICAL INDICATION: back pain / See Clinic Indication Comparison Examination: None. TECHNIQUE: Multiplanar noncontrast T1, T2, and STIR weighted MR images of the thoracic spine are obtained. No intravenous contrast. FINDINGS: Normal vertebral body height and alignment. Marrow signal characteristics are benign. No focal cord signal abnormality. Left paracentral disc protrusion at T6-T7 measures 2 to 3 mm in anteroposterior dimension and flattens the left ventral spinal cord without high-grade central canal stenosis. Posterior paraspinous soft tissues are unremarkable. IMPRESSION: Left paracentral disc protrusion at T6-T7 with associated mass effect on the left ventral spinal cord. No high grade central canal stenosis or cord signal abnormality. SL: 24 02/17/2015 - - Read by: Alexi Del Cid MD Dictated Date/time: 02/17/15 10:25 Electronically Signed by: Alexi Del Cid MD 02/17/15 10:27 FINAL REPORT [facility] Spine lumbar wo contrast MRI Spine lumbar wo contrast MRI Name: JAROD MEYERS : 1975 Ordering Physician: Kevin Callahan Spine lumbar wo contrast MRI : Feb 17, 2015 10:15:00 AM. CLINICAL INDICATION: lumbago REASON FOR EXAM: See Clinic Indication Comparison Examination: Lumbar spine series August 22, 2014. TECHNIQUE: Multiplanar T1, T2 and STIR MR images of the lumbar spine are performed on a 1.5 Lelo magnet. FINDINGS: Five nonrib-bearing lumbar type vertebrae are confirmed on plain films dated August 22, 2014. The vertebral bodies are in good alignment. No evidence of spondylolisthesis or spondylolysis is seen. The disc spaces are mild moderately narrowed at L3-L4 through L5-S1. The signal within the disc spaces is mildly decreased at L3-L4 through L5-S1. The bone marrow signal shows normal signal for age.There are no fractures or compression deformities. The conus terminates at T12-L1. There is no abnormal signal within the distal cord, cauda equina or within the CSF. The anterior and posterior paraspinal soft tissues are unremarkable. T12-L1: No extradural abnormality is seen. No narrowing of spinal canal or the neural foramina is seen. L1-2: No extradural abnormality is seen. No narrowing of spinal canal or the neural foramina is seen. L2-3: No extradural abnormality is seen. No narrowing of spinal canal or the neural foramina is seen. L3-4: A shallow bulge minimally indents the dural sac. Mild bilateral facet arthropathies are seen with slight increase in fluid in the facet joints. No narrowing of spinal canal or the neural foramina is seen. L4-5: A shallow bulge minimally indents the dural sac. Mild to moderate bilateral facet arthropathies are seen with increase fluid in the facet joints. No narrowing of spinal canal is seen. Mild to moderate narrowing of the neural foramina is seen. L5-S1: A centrally protruding disc herniation is seen indenting the dural sac measuring 5.7 mm in its AP dimension. No narrowing of the neural foramina is seen. IMPRESSION: A centrally protruding disc herniation is seen at L5-S1 indenting the dural sac and encroaching on the bilateral traversing nerve roots. SL: NE OPID 53 02/17/2015 - - Read by: Daryl Mejia MD Dictated Date/time: 02/17/15 10:36 Electronically Signed by: Daryl Mejia MD 02/17/15 10:48 FINAL REPORT [facility] [place] Spine cervical wo contrast MRI Spine cervical wo contrast MRI Name: JAROD MEYERS : 1975 Ordering Physician: Kevin Callahan Spine cervical wo contrast MRI : Feb 17, 2015 10:14:00 AM. CLINICAL INDICATION: 784.0 headaches REASON FOR EXAM: See Clinic Indication Comparison Examination: Cervical spine series January 12, 2014. TECHNIQUE: Multiplanar T1, T2, STIR MR images of the cervical spine are obtained on a 1.5 Lelo magnet. FINDINGS: The craniovertebral junction region appears unremarkable. The vertebral bodies are in good alignment. The disc spaces are normal.The signal intensity of the spinal bone marrow is within normal limits. The cervical spinal cord has a normal size, shape and signal intensity. No hydromyelia formation is identified. The visualized thoracic cord, brain stem and posterior fossa are unremarkable. The paraspinal soft tissue structures appear normal. C2-3: No extradural abnormality is seen. No narrowing of spinal canal or the neural foramina is seen. C3-4: No extradural abnormality is seen. No narrowing of spinal canal or the neural foramina is seen. C4-5: No extradural abnormality is seen. No narrowing of spinal canal or the neural foramina is seen. C5-6: A right paracentral protrusion is seen measuring 2 mm in its AP dimension extending to the surface of the right side of cord. No significant narrowing of spinal canal or the neural foramina is seen. C6-7: No extradural abnormality is seen. No narrowing of spinal canal or the neural foramina is seen. C7-T1: No extradural abnormality is seen. No narrowing of spinal canal or the neural foramina is seen. IMPRESSION: A right paracentral protrusion extends to the ventral surface of the right cord. SL: ROSALINA CHAPPELL 53 02/17/2015 - - Read by: Daryl Mejia MD Dictated Date/time: 02/17/15 10:37 Electronically Signed by: Daryl Mejia MD 02/17/15 10:42 FINAL REPORT [facility] Renal Stone CT Renal Stone CT Name: JAROD MEYERS : 1975 SEX: F Ordering Physician: Stephan Torres Renal Stone CT : Aug 02, 2013 02:02:00 PM. CLINICAL INDICATION: Abdominal pain, and hematuria Comparison Examination: None TECHNIQUE: Renal Stone protocol CT is performed without iodinated contrast. Multi-detector helical CT axial images were obtained from the level of the diaphragm through the lower pelvis. Coronal and sagittal reconstructions were obtained and viewed on the workstation. Dose: The total exam DLP is 1175 mGy-cm. FINDINGS: The lung bases are clear. There are no renal calculi, contour deforming masses or hydronephrosis. There is no ureterectasis or ureteral calculi. The bladder is unremarkable. The noncontrast opacified loops of colon and small bowel in the abdomen and pelvis are unremarkable. Limited noncontrast evaluation of the liver, gallbladder, spleen, pancreas, and adrenals is unremarkable. There is no abdominal lymphadenopathy or ascites. IMPRESSION: Unremarkable renal stone CT. SL: 23 08/02/2013 - - Read by: Elvin Anguiano Dictated Date/time: 08/02/13 14:19 Electronically Signed by: Elvin Anguiano MD 08/02/13 14:22 FINAL REPORT [facility] Abdomen AP view Abdomen AP view Name: JAROD MEYERS : 1975 SEX: F Ordering Physician: Gilbert Feng Abdomen 1 view : Jul 28, 2013 02:49:00 PM. CLINICAL INDICATION: L flank pain Comparison Examination: None FINDINGS: A supine view of the abdomen demonstrates a non-obstructive bowel gas pattern. There is no pneumatosis or mass effect. No significant abnormal calcifications are seen. There are no clinically significant osseous abnormalities. IMPRESSION: Unremarkable supine view of the abdomen. SL: 24 07/28/2013 - - Read by: Paramjit Bustillos Dictated Date/time: 07/28/13 14:59 Electronically Signed by: Paramjit Bustillos MD 07/28/13 14:59 FINAL REPORT [facility] CHEMISTRY AGAP 11.9 meq/L 10.0 - 20.0 07/17/2013 Normal [facility] CHEMISTRY eGFR 44 mL/min/1.73m2 07/17/2013 1Result Comment: The eGFR is calculated using the CKD-EPI formula. In most young, healthy individuals the eGFR will be >90 mL/min/1.73m2. The eGFR declines with age. An eGFR of 60-89 may be normal in some populations, particularly the elderly, for whom the CKD-EPI formula has not been extensively validated. Use of the eGFR is not recommended in the following populations: Individuals with unstable creatinine concentrations, including patients and those with serious co-morbid conditions. Patients with extremes in muscle mass or diet. The data above are obtained from the National Kidney Disease Education Program (NKDEP) which additionally recommends that when the eGFR is used in patients with extremes of body mass index for purposes of drug dosing, the eGFR should be multiplied by the estimated BMI. [facility] CHEMISTRY Chloride Lvl 106 meq/L 95 - 109 07/17/2013 Normal [facility] CHEMISTRY Sodium Lvl 140 meq/L 135 - 145 07/17/2013 Normal [facility] CHEMISTRY Potassium Lvl 3.9 meq/L 3.5 - 5.1 07/17/2013 Normal [facility] CHEMISTRY Calcium Lvl 8.8 mg/dL 8.5 - 10.5 07/17/2013 Normal [facility] CHEMISTRY CO2 26 meq/L 24 - 32 07/17/2013 Normal [facility] CHEMISTRY Glucose Lvl 107 mg/dL 70 - 99 07/17/2013 [place] 2Interpretive Data: Adult reference range values reflect the clinical guidelines of the [place] [employer]. [facility] CHEMISTRY BUN 15 mg/dL 7 - 22 07/17/2013 Normal [facility] CHEMISTRY Creatinine Lvl 1.5 mg/dL 0.5 - 1.4 07/17/2013 HI [facility] HEMATOLOGY Monocytes 2.9 % 2.0 - 12.0 07/17/2013 Normal [facility] HEMATOLOGY Lymphocytes 18.8 % 20.0 - 40.0 07/17/2013 LOW [facility] HEMATOLOGY Basophils 0.1 % 0.0 - 1.0 07/17/2013 Normal [facility] HEMATOLOGY Eosinophils 0.1 % 0.0 - 4.0 07/17/2013 Normal [facility] HEMATOLOGY Segs-Bands # 4.8 K/CMM 1.5 - 8.1 07/17/2013 Normal [facility] HEMATOLOGY Segs 78.1 % 45.0 - 75.0 07/17/2013 HI [facility] HEMATOLOGY Basophils # 0.0 K/CMM 0.0 - 0.2 07/17/2013 Normal [facility] HEMATOLOGY Lymphocytes # 1.2 K/CMM 1.0 - 5.5 07/17/2013 Normal [facility] HEMATOLOGY Eosinophils # 0.0 K/CMM 0.0 - 0.5 07/17/2013 Normal [facility] HEMATOLOGY Monocytes # 0.2 K/CMM 0.0 - 0.8 07/17/2013 Normal [facility] HEMATOLOGY RBC X 10x6 4.71 M/CMM 4.20 - 5.40 07/17/2013 Normal [facility] HEMATOLOGY WBC X 10x3 6.1 K/CMM 3.7 - 10.4 07/17/2013 Normal [facility] HEMATOLOGY Hct 37.6 % 36.0 - 48.0 07/17/2013 Normal [facility] HEMATOLOGY Hgb 12.3 g/dL 12.0 - 16.0 07/17/2013 Normal [facility] HEMATOLOGY MCV 79.9 fL 81.0 - 99.0 07/17/2013 LOW [facility] HEMATOLOGY MCHC 32.8 g/dL 32.0 - 36.0 07/17/2013 Normal [facility] MCH 26.2 pg 27.0 - 31.0 07/17/2013 LOW [facility] HEMATOLOGY RDW 15.1 % 11.5 - 14.5 07/17/2013 HI [facility] HEMATOLOGY MPV 8.1 fL 7.4 - 10.4 07/17/2013 Normal [facility] HEMATOLOGY Platelet 289 K/CMM 133 - 450 07/17/2013 Normal [facility] IMMUNOLOGY [facility] HIV 4th GEN Negative (07/17/2013 11:08:00) Negative 07/17/2013 Normal [facility] Chest 1view Chest 1view Name: JAROD MEYERS : 1975 Ordering Physician: Melo Meier Chest 1view : Jul 17, 2013 11:29:00 AM. CLINICAL INDICATION: Dyspnea Comparison Examination: 06/11/2013. FINDINGS: Single AP view of the chest is submitted for interpretation. There is mild pulmonary vascular congestion. The lungs are otherwise clear and there are no effusions. Cardiomediastinal contours are stable. Bony structures are unremarkable. IMPRESSION: 1. Mild pulmonary vascular congestion. SL: 24 07/17/2013 - - Read by: Raj Leach Dictated Date/time: 07/17/13 11:29 Electronically Signed by: Raj Leach MD 07/17/13 11:33 FINAL REPORT [facility] CHEMISTRY CK MB Index null 0.0 - 2.5 07/02/2012 Normal [facility] CHEMISTRY CK MB null 0.5 - 3.6 07/02/2012 Normal [facility] CHEMISTRY Total CK 23 unit/L 12 - 191 07/02/2012 Normal [facility] CHEMISTRY eGFR 73 mL/min/1.73m2 07/02/2012 NA 1Result Comment: The eGFR is calculated using the CKD-EPI formula. In most young, healthy individuals the eGFR will be >90 mL/min/1.73m2. The eGFR declines with age. An eGFR of 60-89 may be normal in some populations, particularly the elderly, for whom the CKD-EPI formula has not been extensively validated. Use of the eGFR is not recommended in the following populations: Individuals with unstable creatinine concentrations, including patients and those with serious co-morbid conditions. Patients with extremes in muscle mass or diet. The data above are obtained from the National Kidney Disease Education Program (NKDEP) which additionally recommends that when the eGFR is used in patients with extremes of body mass index for purposes of drug dosing, the eGFR should be multiplied by the estimated BMI. [facility] CHEMISTRY Glucose Lvl 100 mg/dL 70 - 99 07/02/2012 [place] 2Interpretive Data: Adult reference range values reflect the clinical guidelines of the [place] [employer]. [facility] CHEMISTRY Sodium Lvl 139 meq/L 135 - 145 07/02/2012 Normal [facility] CHEMISTRY Creatinine Lvl 1.0 mg/dL 0.5 - 1.4 07/02/2012 Normal [facility] CHEMISTRY BUN 12 mg/dL 7 - 22 07/02/2012 Normal [facility] CHEMISTRY ALT 18 unit/L 0 - 65 07/02/2012 Normal [facility] CHEMISTRY Alk Phos 99 unit/L 39 - 136 07/02/2012 Normal [facility] CHEMISTRY Albumin Lvl 3.6 g/dL 3.5 - 5.0 07/02/2012 Normal [facility] CHEMISTRY Bili Total 0.2 mg/dL 0.2 - 1.3 07/02/2012 Normal [facility] CHEMISTRY AST 11 unit/L 0 - 37 07/02/2012 Normal [facility] CHEMISTRY Chloride Lvl 104 meq/L 95 - 109 07/02/2012 Normal [facility] CHEMISTRY Potassium Lvl 3.7 meq/L 3.5 - 5.1 07/02/2012 Normal [facility] CHEMISTRY Total Protein 7.8 g/dL 6.4 - 8.4 07/02/2012 Normal [facility] CHEMISTRY Calcium Lvl 9.3 mg/dL 8.5 - 10.5 07/02/2012 Normal [facility] CHEMISTRY CO2 28 meq/L 24 - 32 07/02/2012 Normal [facility] CHEMISTRY Globulin 4.2 g/dL 2.0 - 4.0 07/02/2012 HI [facility] CHEMISTRY B/C Ratio 12 6 - 25 07/02/2012 Normal [facility] CHEMISTRY AGAP 10.7 meq/L 10.0 - 20.0 07/02/2012 Normal [facility] CHEMISTRY A/G Ratio 0.9 0.7 - 1.6 07/02/2012 Normal [facility] CHEMISTRY Troponin-I null 0.00 - 0.40 07/02/2012 Normal [facility] HEMATOLOGY Monocytes # 0.5 K/CMM 0.0 - 0.8 07/02/2012 Normal [facility] HEMATOLOGY Lymphocytes # 2.6 K/CMM 1.0 - 5.5 07/02/2012 Normal [facility] HEMATOLOGY Eosinophils 0.6 % 0.0 - 4.0 07/02/2012 Normal [facility] HEMATOLOGY Segs-Bands # 9.7 K/CMM 1.5 - 8.1 07/02/2012 HI [facility] HEMATOLOGY Basophils 2.1 % 0.0 - 1.0 07/02/2012 HI [facility] HEMATOLOGY Basophils # 0.3 K/CMM 0.0 - 0.2 07/02/2012 [facility] HEMATOLOGY Eosinophils # 0.1 K/CMM 0.0 - 0.5 07/02/2012 Normal [facility] HEMATOLOGY Segs 73.5 % 45.0 - 75.0 07/02/2012 Normal [facility] Lymphocytes 20.0 % 20.0 - 40.0 07/02/2012 Normal [facility] HEMATOLOGY Monocytes 3.8 % 2.0 - 12.0 07/02/2012 Normal [facility] PTT 29.5 s 22.9 - 35.8 07/02/2012 Normal 5Interpretive Data: Heparin Therapeutic Range: 57 - 92 Seconds [facility] PT 13.5 s 12.0 - 14.7 07/02/2012 Normal [facility] INR 1.01 0.85 - 1.17 07/02/2012 Normal 3Interpretive Data: RECOMMENDED RANGES FOR PROTIME INR: 2.0-3.0 for most medical and surgical thromboembolic states. 2.5-3.5 for artificial heart valves and recurrent embolism. INR SHOULD BE USED ONLY FOR PATIENTS ON STABLE ANTICOAGULANT THERAPY. [facility] HEMATOLOGY D-Dimer <0.22 ug/mL FEU <sup>4</sup>
*ABN*
(07/01/2012 22:20:00) <sup> </sup> 07/02/2012 ABN 4Interpretive Data: In DIC, quantitative D-Dimer is generally greater than 0.66 ug/mL FEU. Values of quantitative D-Dimer less than 0.40 ug/mL FEU have been reported to be associated with a low probability of deep vein thrombosis/pulmonary embolism. This test alone should not be used to rule out DVT/PE. [facility] HEMATOLOGY WBC 13.2 K/CMM 3.7 - 10.4 07/02/2012 [facility] HEMATOLOGY RDW 15.1 % 11.5 - 14.5 07/02/2012 HI [facility] HEMATOLOGY MCHC 33.8 g/dL 32.0 - 36.0 07/02/2012 Normal [facility] HEMATOLOGY RBC 4.87 M/CMM 4.20 - 5.40 07/02/2012 Normal [facility] HEMATOLOGY MCH 26.5 pg 27.0 - 31.0 07/02/2012 LOW [facility] HEMATOLOGY MCV 78.4 fL 81.0 - 99.0 07/02/2012 LOW [facility] Hct 38.2 % 36.0 - 48.0 07/02/2012 Normal [facility] HEMATOLOGY Hgb 12.9 g/dL 12.0 - 16.0 07/02/2012 Normal [facility] Platelet 320 K/CMM 133 - 450 07/02/2012 Normal [facility] HEMATOLOGY MPV 8.4 fL 7.4 - 10.4 07/02/2012 Normal [facility] CHEMISTRY Magnesium Lvl 2.2 mg/dL 1.8 - 2.4 04/25/2012 Normal [facility] CHEMISTRY eGFR 113 mL/min/1.73m2 04/25/2012 NA 2Result Comment: The eGFR is calculated using the CKD-EPI formula. In most young, healthy individuals the eGFR will be >90 mL/min/1.73m2. The eGFR declines with age. An eGFR of 60-89 may be normal in some populations, particularly the elderly, for whom the CKD-EPI formula has not been extensively validated. Use of the eGFR is not recommended in the following populations: Individuals with unstable creatinine concentrations, including patients and those with serious co-morbid conditions. Patients with extremes in muscle mass or diet. The data above are obtained from the National Kidney Disease Education Program (NKDEP) which additionally recommends that when the eGFR is used in patients with extremes of body mass index for purposes of drug dosing, the eGFR should be multiplied by the estimated BMI. [facility] CHEMISTRY Potassium Lvl 4.5 meq/L 3.5 - 5.1 04/25/2012 Normal [facility] CHEMISTRY Calcium Lvl 8.2 mg/dL 8.5 - 10.5 04/25/2012 LOW [facility] CHEMISTRY CO2 29 meq/L 24 - 32 04/25/2012 Normal [facility] CHEMISTRY Chloride Lvl 108 meq/L 95 - 109 04/25/2012 Normal [facility] CHEMISTRY Sodium Lvl 142 meq/L 135 - 145 04/25/2012 Normal [facility] CHEMISTRY BUN 13 mg/dL 7 - 22 04/25/2012 Normal [facility] CHEMISTRY Glucose Lvl 192 mg/dL 70 - 99 04/25/2012 [place] 5Interpretive Data: Adult reference range values reflect the clinical guidelines of the [place] [employer]. [facility] CHEMISTRY Creatinine Lvl 0.7 mg/dL 0.5 - 1.4 04/25/2012 Normal [facility] CHEMISTRY AGAP 9.5 meq/L 10.0 - 20.0 04/25/2012 [facility] HEMATOLOGY PT 14.9 s 12.0 - 14.7 04/25/2012 [facility] HEMATOLOGY INR 1.15 0.85 - 1.17 04/25/2012 Normal 9Interpretive Data: RECOMMENDED RANGES FOR PROTIME INR: 2.0-3.0 for most medical and surgical thromboembolic states. 2.5-3.5 for artificial heart valves and recurrent embolism. INR SHOULD BE USED ONLY FOR PATIENTS ON STABLE ANTICOAGULANT THERAPY. [facility] HEMATOLOGY MPV 8.5 fL 7.4 - 10.4 04/25/2012 Normal [facility] HEMATOLOGY Platelet 279 K/CMM 133 - 450 04/25/2012 Normal [facility] HEMATOLOGY RDW 16.2 % 11.5 - 14.5 04/25/2012 [facility] HEMATOLOGY MCHC 34.2 g/dL 32.0 - 36.0 04/25/2012 Normal [facility] HEMATOLOGY Hgb 10.5 g/dL 12.0 - 16.0 04/25/2012 [facility] HEMATOLOGY WBC 11.8 K/CMM 3.7 - 10.4 04/25/2012 [facility] HEMATOLOGY Hct 30.9 % 36.0 - 48.0 04/25/2012 [facility] HEMATOLOGY MCV 80.4 fL 81.0 - 99.0 04/25/2012 [facility] HEMATOLOGY RBC 3.84 M/CMM 4.20 - 5.40 04/25/2012 [facility] HEMATOLOGY MCH 27.5 pg 27.0 - 31.0 04/25/2012 Normal [facility] HEMATOLOGY Eosinophils # 0.0 K/CMM 0.0 - 0.5 04/25/2012 [facility] HEMATOLOGY Lymphocytes # 1.0 K/CMM 1.0 - 5.5 04/25/2012 Normal [facility] HEMATOLOGY Monocytes # 0.4 K/CMM 0.0 - 0.8 04/25/2012 Normal [facility] HEMATOLOGY Segs-Bands # 10.4 K/CMM 1.5 - 8.1 04/25/2012 [facility] HEMATOLOGY Eosinophils 0.0 % 0.0 - 4.0 04/25/2012 Normal [facility] HEMATOLOGY Basophils 0.1 % 0.0 - 1.0 04/25/2012 Normal [facility] HEMATOLOGY Basophils # 0.0 K/CMM 0.0 - 0.2 04/25/2012 Normal [facility] HEMATOLOGY Monocytes 3.1 % 2.0 - 12.0 04/25/2012 Normal [facility] HEMATOLOGY Segs 88.7 % 45.0 - 75.0 04/25/2012 [facility] HEMATOLOGY Lymphocytes 8.1 % 20.0 - 40.0 04/25/2012 LOW [facility] CHEMISTRY FiO2 Art 21.0 04/24/2012 NA [facility] CHEMISTRY Mode Art Rm Air (04/24/2012 14:25:00) 04/24/2012 Normal [facility] CHEMISTRY Allens Art Positive (04/24/2012 14:25:00) 04/24/2012 Normal [facility] CHEMISTRY Site Art Right Ra (04/24/2012 14:25:00) 04/24/2012 Normal [facility] CHEMISTRY HCO3 Art 27 mMol/L 22 - 26 04/24/2012 [facility] CHEMISTRY O2 Sat Art 93.3 % 95.0 - 100.0 04/24/2012 LOW [facility] CHEMISTRY BE Art 2 mMol/L -2-2 - 2 04/24/2012 Normal [facility] CHEMISTRY pH Art 7.40 7.35 - 7.45 04/24/2012 Normal [facility] CHEMISTRY pO2 Art 65 mm[Hg] 80 - 100 04/24/2012 LOW [facility] CHEMISTRY pCO2 Art 45 mm[Hg] 35 - 45 04/24/2012 Normal [facility] HEMATOLOGY PT 15.9 s 12.0 - 14.7 04/24/2012 [facility] HEMATOLOGY INR 1.25 0.85 - 1.17 04/24/2012 [place] 10Interpretive Data: RECOMMENDED RANGES FOR PROTIME INR: 2.0-3.0 for most medical and surgical thromboembolic states. 2.5-3.5 for artificial heart valves and recurrent embolism. INR SHOULD BE USED ONLY FOR PATIENTS ON STABLE ANTICOAGULANT THERAPY. [facility] CHEMISTRY eGFR 96 mL/min/1.73m2 04/24/2012 NA 3Result Comment: The eGFR is calculated using the CKD-EPI formula. In most young, healthy individuals the eGFR will be >90 mL/min/1.73m2. The eGFR declines with age. An eGFR of 60-89 may be normal in some populations, particularly the elderly, for whom the CKD-EPI formula has not been extensively validated. Use of the eGFR is not recommended in the following populations: Individuals with unstable creatinine concentrations, including patients and those with serious co-morbid conditions. Patients with extremes in muscle mass or diet. The data above are obtained from the National Kidney Disease Education Program (NKDEP) which additionally recommends that when the eGFR is used in patients with extremes of body mass index for purposes of drug dosing, the eGFR should be multiplied by the estimated BMI. [facility] CHEMISTRY Calcium Lvl 8.3 mg/dL 8.5 - 10.5 04/24/2012 LOW [facility] CHEMISTRY Potassium Lvl 4.7 meq/L 3.5 - 5.1 04/24/2012 Normal [facility] CHEMISTRY CO2 28 meq/L 24 - 32 04/24/2012 Normal [facility] CHEMISTRY Chloride Lvl 109 meq/L 95 - 109 04/24/2012 Normal [facility] CHEMISTRY BUN 11 mg/dL 7 - 22 04/24/2012 Normal [facility] CHEMISTRY Glucose Lvl 143 mg/dL 70 - 99 04/24/2012 [place] 6Interpretive Data: Adult reference range values reflect the clinical guidelines of the [place] [employer]. [facility] CHEMISTRY Creatinine Lvl 0.8 mg/dL 0.5 - 1.4 04/24/2012 Normal [facility] CHEMISTRY Sodium Lvl 141 meq/L 135 - 145 04/24/2012 Normal [facility] CHEMISTRY AGAP 8.7 meq/L 10.0 - 20.0 04/24/2012 LOW [facility] CHEMISTRY Magnesium Lvl 2.0 mg/dL 1.8 - 2.4 04/24/2012 Normal [facility] HEMATOLOGY Lymphocytes 6.3 % 20.0 - 40.0 04/24/2012 LOW [facility] HEMATOLOGY Segs 90.4 % 45.0 - 75.0 04/24/2012 HI [facility] HEMATOLOGY Eosinophils 0.0 % 0.0 - 4.0 04/24/2012 Normal [facility] HEMATOLOGY Monocytes 3.3 % 2.0 - 12.0 04/24/2012 Normal [facility] HEMATOLOGY Basophils # 0.0 K/CMM 0.0 - 0.2 04/24/2012 Normal [facility] HEMATOLOGY Lymphocytes # 1.0 K/CMM 1.0 - 5.5 04/24/2012 Normal [facility] HEMATOLOGY Segs-Bands # 14.7 K/CMM 1.5 - 8.1 04/24/2012 [facility] HEMATOLOGY Eosinophils # 0.0 K/CMM 0.0 - 0.5 04/24/2012 Normal [facility] HEMATOLOGY Monocytes # 0.5 K/CMM 0.0 - 0.8 04/24/2012 Normal [facility] HEMATOLOGY Basophils 0.0 % 0.0 - 1.0 04/24/2012 Normal [facility] HEMATOLOGY Hgb 10.5 g/dL 12.0 - 16.0 04/24/2012 LOW [facility] HEMATOLOGY RBC 3.84 M/CMM 4.20 - 5.40 04/24/2012 LOW [facility] HEMATOLOGY WBC 16.2 K/CMM 3.7 - 10.4 04/24/2012 [facility] HEMATOLOGY MCHC 33.9 g/dL 32.0 - 36.0 04/24/2012 Normal [facility] HEMATOLOGY MCH 27.3 pg 27.0 - 31.0 04/24/2012 Normal [facility] HEMATOLOGY RDW 15.9 % 11.5 - 14.5 04/24/2012 [facility] HEMATOLOGY MCV 80.7 fL 81.0 - 99.0 04/24/2012 LOW [facility] HEMATOLOGY Hct 30.9 % 36.0 - 48.0 04/24/2012 LOW [facility] HEMATOLOGY Platelet 287 K/CMM 133 - 450 04/24/2012 Normal [facility] HEMATOLOGY MPV 8.8 fL 7.4 - 10.4 04/24/2012 Normal [facility] CHEMISTRY CK MB 0.7 ng/mL 0.5 - 3.6 04/23/2012 Normal [facility] CHEMISTRY Total CK 60 unit/L 12 - 191 04/23/2012 Normal [facility] CHEMISTRY Troponin-I null 0.00 - 0.40 04/23/2012 Normal [facility] CHEMISTRY CK MB Index 1.2 0.0 - 2.5 04/23/2012 Normal [facility] CHEMISTRY O2 Sat Art 95.2 % 95.0 - 100.0 04/23/2012 Normal [facility] CHEMISTRY Site Art Right Ra (04/23/2012 04:20:00) 04/23/2012 Normal [facility] CHEMISTRY Flow Art 2.0 04/23/2012 NA [facility] CHEMISTRY Allens Art Positive (04/23/2012 04:20:00) 04/23/2012 Normal [facility] CHEMISTRY HCO3 Art 27 mMol/L 22 - 26 04/23/2012 HI [facility] CHEMISTRY BE Art 2 mMol/L -2-2 - 2 04/23/2012 Normal [facility] CHEMISTRY pO2 Art 72 mm[Hg] 80 - 100 04/23/2012 LOW [facility] CHEMISTRY Mode Art NC (04/23/2012 04:20:00) 04/23/2012 Normal [facility] CHEMISTRY pH Art 7.42 7.35 - 7.45 04/23/2012 Normal [facility] CHEMISTRY pCO2 Art 42 mm[Hg] 35 - 45 04/23/2012 Normal [facility] CHEMISTRY AGAP 11.1 meq/L 10.0 - 20.0 04/23/2012 Normal [facility] CHEMISTRY eGFR 83 mL/min/1.73m2 04/23/2012 NA 4Result Comment: The eGFR is calculated using the CKD-EPI formula. In most young, healthy individuals the eGFR will be >90 mL/min/1.73m2. The eGFR declines with age. An eGFR of 60-89 may be normal in some populations, particularly the elderly, for whom the CKD-EPI formula has not been extensively validated. Use of the eGFR is not recommended in the following populations: Individuals with unstable creatinine concentrations, including patients and those with serious co-morbid conditions. Patients with extremes in muscle mass or diet. The data above are obtained from the National Kid[employer] Education Program (NKDEP) which additionally recommends that when the eGFR is used in patients with extremes of body mass index for purposes of drug dosing, the eGFR should be multiplied by the estimated BMI. [facility] CHEMISTRY Calcium Lvl 8.9 mg/dL 8.5 - 10.5 04/23/2012 Normal [facility] CHEMISTRY CO2 27 meq/L 24 - 32 04/23/2012 Normal [facility] CHEMISTRY Potassium Lvl 4.1 meq/L 3.5 - 5.1 04/23/2012 Normal [facility] CHEMISTRY Chloride Lvl 106 meq/L 95 - 109 04/23/2012 Normal [facility] CHEMISTRY Sodium Lvl 140 meq/L 135 - 145 04/23/2012 Normal [facility] CHEMISTRY Glucose Lvl 163 mg/dL 70 - 99 04/23/2012 [place] 7Interpretive Data: Adult reference range values reflect the clinical guidelines of the [place] [employer]. [facility] CHEMISTRY Creatinine Lvl 0.9 mg/dL 0.5 - 1.4 04/23/2012 Normal [facility] CHEMISTRY BUN 8 mg/dL 7 - 22 04/23/2012 Normal [facility] HEMATOLOGY MCH 27.5 pg 27.0 - 31.0 04/23/2012 Normal [facility] HEMATOLOGY MCV 79.5 fL 81.0 - 99.0 04/23/2012 LOW [facility] HEMATOLOGY RDW 15.8 % 11.5 - 14.5 04/23/2012 HI [facility] HEMATOLOGY MPV 8.5 fL 7.4 - 10.4 04/23/2012 Normal [facility] HEMATOLOGY Platelet 258 K/CMM 133 - 450 04/23/2012 Normal [facility] HEMATOLOGY Hct 30.7 % 36.0 - 48.0 04/23/2012 LOW [facility] HEMATOLOGY MCHC 34.5 g/dL 32.0 - 36.0 04/23/2012 Normal [facility] HEMATOLOGY WBC 8.9 K/CMM 3.7 - 10.4 04/23/2012 Normal [facility] HEMATOLOGY RBC 3.86 M/CMM 4.20 - 5.40 04/23/2012 LOW [facility] HEMATOLOGY Hgb 10.6 g/dL 12.0 - 16.0 04/23/2012 LOW [facility] HEMATOLOGY Segs-Bands # 8.2 K/CMM 1.5 - 8.1 04/23/2012 [facility] HEMATOLOGY Basophils # 0.0 K/CMM 0.0 - 0.2 04/23/2012 Normal [facility] HEMATOLOGY Eosinophils # 0.0 K/CMM 0.0 - 0.5 04/23/2012 Normal [facility] HEMATOLOGY Monocytes # 0.2 K/CMM 0.0 - 0.8 04/23/2012 Normal [facility] HEMATOLOGY Lymphocytes # 0.6 K/CMM 1.0 - 5.5 04/23/2012 LOW [facility] HEMATOLOGY Segs 91.5 % 45.0 - 75.0 04/23/2012 [facility] HEMATOLOGY Basophils 0.5 % 0.0 - 1.0 04/23/2012 Normal [facility] HEMATOLOGY Eosinophils 0.0 % 0.0 - 4.0 04/23/2012 Normal [facility] HEMATOLOGY Monocytes 1.7 % 2.0 - 12.0 04/23/2012 LOW [facility] HEMATOLOGY Lymphocytes 6.3 % 20.0 - 40.0 04/23/2012 LOW [facility] PTT 44.2 s 22.9 - 35.8 04/23/2012 [place] 13Interpretive Data: Heparin Therapeutic Range: 57 - 92 Seconds [facility] PT 14.5 s 12.0 - 14.7 04/23/2012 Normal [facility] INR 1.11 0.85 - 1.17 04/23/2012 Normal 11Interpretive Data: RECOMMENDED RANGES FOR PROTIME INR: 2.0-3.0 for most medical and surgical thromboembolic states. 2.5-3.5 for artificial heart valves and recurrent embolism. INR SHOULD BE USED ONLY FOR PATIENTS ON STABLE ANTICOAGULANT THERAPY. [facility] Microbiology Gram Stain 04/22/2012 [facility] Microbiology Culture: Respiratory w/Gram Stain 04/22/2012 [facility] D-Dimer 0.47 ug/mL FEU 04/22/2012 NA 12Interpretive Data: In DIC, quantitative D-Dimer is generally greater than 0.66 ug/mL FEU. Values of quantitative D-Dimer less than 0.40 ug/mL FEU have been reported to be associated with a low probability of deep vein thrombosis/pulmonary embolism. This test alone should not be used to rule out DVT/PE. [facility] BACTERIAL - SEROLOGY U S pneumo Ag Negative (04/22/2012 09:30:00) Negative 04/22/2012 Normal [facility] MICRO MISC - SEROLOGY U Legion Ag Negative 1 (04/22/2012 09:30:00) Negative 04/22/2012 Normal 1Interpretive Data: This kit tests for Legionella pneumophila Serogroup 1 Antigen. [facility] Microbiology Culture: Urine 04/22/2012 [facility] CHEMISTRY Ferritin Lvl 58 ng/mL 5 - 204 04/22/2012 Normal [facility] CHEMISTRY Iron 34 ug/dl 30 - 160 04/22/2012 Normal [facility] Microbiology Culture: Blood 04/22/2012 [facility] Microbiology Culture: Blood 04/22/2012 [facility] CHEMISTRY Allens Art N/A (04/22/2012 07:38:00) 04/22/2012 Normal [facility] CHEMISTRY Mode Art Rm Air (04/22/2012 07:38:00) 04/22/2012 Normal [facility] CHEMISTRY pH Art 7.44 7.35 - 7.45 04/22/2012 Normal [facility] CHEMISTRY pCO2 Art 40 mm[Hg] 35 - 45 04/22/2012 Normal [facility] CHEMISTRY pO2 Art 60 mm[Hg] 80 - 100 04/22/2012 CRIT 8Result Comment: Critical Result(s) called to at 04/22/2012 07:40:31 CRAS by Reece,SOCIAL WORK MANAGER. Read back OK. [facility] CHEMISTRY HCO3 Art 26 mMol/L 22 - 26 04/22/2012 Normal [facility] CHEMISTRY BE Art 2 mMol/L -2-2 - 2 04/22/2012 Normal [facility] CHEMISTRY O2 Sat Art 92.9 % 95.0 - 100.0 04/22/2012 LOW [facility] CHEMISTRY Site Art Right Br (04/22/2012 07:38:00) 04/22/2012 Normal [facility] CHEMISTRY A/G Ratio 0.9 0.7 - 1.6 04/22/2012 Normal [facility] CHEMISTRY B/C Ratio 8 6 - 25 04/22/2012 Normal [facility] CHEMISTRY Globulin 3.8 g/dL 2.0 - 4.0 04/22/2012 Normal [facility] CHEMISTRY AST 20 unit/L 0 - 37 04/22/2012 Normal [facility] CHEMISTRY ALT 19 unit/L 0 - 65 04/22/2012 Normal [facility] CHEMISTRY Albumin Lvl 3.3 g/dL 3.5 - 5.0 04/22/2012 LOW [facility] CHEMISTRY Total Protein 7.1 g/dL 6.4 - 8.4 04/22/2012 Normal [facility] CHEMISTRY Bili Total 0.2 mg/dL 0.2 - 1.3 04/22/2012 Normal [facility] CHEMISTRY Alk Phos 91 unit/L 39 - 136 04/22/2012 Normal [facility] CHEMISTRY S Preg Negative *NA* (04/22/2012 02:15:00) Negative 04/22/2012 NA [facility] HEMATOLOGY Protein S Func 109 % 54 - 137 04/22/2012 Normal [facility] HEMATOLOGY Protein C Func 172 % 72 - 147 04/22/2012 [place] [facility] HEMATOLOGY PTT 35.4 s 22.9 - 35.8 04/22/2012 Normal 14Interpretive Data: Heparin Therapeutic Range: 57 - 92 Seconds [facility] Vital Signs Vital Sign Value Date Comments Source Heart Rate 85 09/29/2018 [facility] Temperature Oral (F) 98.3 F 09/29/2018 [facility] Respitory Rate 20 09/29/2018 [facility] Systolic (mm Hg) 93 09/29/2018 [facility] Diastolic (mm Hg) 62 09/29/2018 [facility] Temperature Oral (F) 98.1 F 09/29/2018 [facility] Respitory Rate 20 09/29/2018 [facility] Heart Rate 87 09/29/2018 [facility] Systolic (mm Hg) 103 09/29/2018 [facility] Diastolic (mm Hg) 60 09/29/2018 [facility] Systolic (mm Hg) 126 09/29/2018 [facility] Diastolic (mm Hg) 81 09/29/2018 [facility] Temperature Oral (F) 100 F 09/29/2018 [facility] Respitory Rate 20 09/29/2018 [facility] Weight 143.182 09/28/2018 [facility] Height 175.26 cm 09/28/2018 [facility] BMI Calculated 46.61 09/28/2018 [facility] Heart Rate 118 09/28/2018 [facility] Heart Rate 74 08/02/2018 [facility] Temperature Oral (F) 98.5 F 08/02/2018 [facility] Systolic (mm Hg) 118 08/02/2018 [facility] Diastolic (mm Hg) 79 08/02/2018 [facility] Respitory Rate 18 08/02/2018 [facility] Temperature Oral (F) 97.7 F 08/02/2018 [facility] Systolic (mm Hg) 125 08/02/2018 [facility] Diastolic (mm Hg) 74 08/02/2018 [facility] Heart Rate 97 08/02/2018 [facility] Respitory Rate 18 08/02/2018 [facility] Heart Rate 75 08/02/2018 [facility] Systolic (mm Hg) 112 08/02/2018 [facility] Diastolic (mm Hg) 76 08/02/2018 [facility] Respitory Rate 18 08/02/2018 [facility] Temperature Oral (F) 98.2 F 08/02/2018 [facility] Weight 147.273 07/28/2018 [facility] Height 175.26 cm 07/28/2018 [facility] BMI Calculated 47.95 07/28/2018 [facility] Weight 147.273 07/28/2018 [facility] BMI Calculated 55.73 07/28/2018 [facility] Height 162.56 cm 07/28/2018 [facility] Systolic (mm Hg) 103 03/17/2018 [facility] Diastolic (mm Hg) 84 03/17/2018 [facility] Respitory Rate 25 03/17/2018 [facility] Temperature Oral (F) 98.5 F 03/17/2018 [facility] Systolic (mm Hg) 116 03/17/2018 [facility] Diastolic (mm Hg) 82 03/17/2018 [facility] Respitory Rate 21 03/17/2018 [facility] Systolic (mm Hg) 103 03/17/2018 [facility] Diastolic (mm Hg) 60 03/17/2018 [facility] Respitory Rate 17 03/17/2018 [facility] Weight 147.273 03/17/2018 [facility] Heart Rate 101 03/17/2018 [facility] Temperature Oral (F) 98.4 F 03/17/2018 [facility] Systolic (mm Hg) 115 03/03/2018 [facility] Diastolic (mm Hg) 77 03/03/2018 [facility] Respitory Rate 18 03/03/2018 [facility] Temperature Oral (F) 98.1 F 03/03/2018 [facility] Heart Rate 78 03/03/2018 [facility] Respitory Rate 16 03/03/2018 [facility] Heart Rate 84 03/03/2018 [facility] Temperature Oral (F) 98.1 F 03/03/2018 [facility] Systolic (mm Hg) 108 03/03/2018 [facility] Diastolic (mm Hg) 73 03/03/2018 [facility] Weight 147.273 03/03/2018 [facility] Height 175.26 cm 03/03/2018 [facility] BMI Calculated 47.95 03/03/2018 [facility] Temperature Oral (F) 98.4 F 03/03/2018 [facility] Respitory Rate 18 03/03/2018 [facility] Systolic (mm Hg) 133 03/03/2018 [facility] Diastolic (mm Hg) 91 03/03/2018 [facility] Heart Rate 106 03/03/2018 [facility] Systolic (mm Hg) 112 02/11/2018 [facility] Diastolic (mm Hg) 63 02/11/2018 [facility] Respitory Rate 17 02/11/2018 [facility] Systolic (mm Hg) 101 02/10/2018 [facility] Diastolic (mm Hg) 70 02/10/2018 [facility] Respitory Rate 18 02/10/2018 [facility] Temperature Oral (F) 97.9 F 02/10/2018 [facility] Heart Rate 94 02/10/2018 [facility] Weight 148.182 02/10/2018 [facility] Respitory Rate 22 02/10/2018 [facility] Systolic (mm Hg) 130 02/10/2018 [facility] Diastolic (mm Hg) 90 02/10/2018 [facility] Systolic (mm Hg) 121 09/29/2017 [facility] Diastolic (mm Hg) 83 09/29/2017 [facility] Respitory Rate 20 09/29/2017 [facility] Systolic (mm Hg) 114 09/29/2017 [facility] Diastolic (mm Hg) 88 09/29/2017 [facility] Respitory Rate 19 09/29/2017 [facility] Systolic (mm Hg) 137 09/29/2017 [facility] Diastolic (mm Hg) 81 09/29/2017 [facility] Weight 145.455 09/29/2017 [facility] Height 175.26 cm 09/29/2017 [facility] BMI Calculated 47.35 09/29/2017 [facility] Temperature Oral (F) 98.7 F 09/29/2017 [facility] Respitory Rate 20 09/29/2017 [facility] Heart Rate 103 09/29/2017 [facility] Temperature Oral (F) 97.9 F 08/18/2017 [facility] Weight 147.273 08/18/2017 [facility] Respitory Rate 22 08/18/2017 [facility] Systolic (mm Hg) 134 08/18/2017 [facility] Diastolic (mm Hg) 69 08/18/2017 [facility] Heart Rate 108 08/18/2017 [facility] Systolic (mm Hg) 110 07/22/2017 [facility] Diastolic (mm Hg) 70 07/22/2017 [facility] Respitory Rate 16 07/22/2017 [facility] Heart Rate 84 07/22/2017 [facility] Temperature Oral (F) 98.4 F 07/22/2017 [facility] Temperature Oral (F) 98.5 F 07/22/2017 [facility] Heart Rate 90 07/22/2017 [facility] Respitory Rate 16 07/22/2017 [facility] Systolic (mm Hg) 115 07/22/2017 [facility] Diastolic (mm Hg) 75 07/22/2017 [facility] Temperature Oral (F) 98.7 F 07/22/2017 [facility] Height 175.26 cm 07/22/2017 [facility] BMI Calculated 44.4 07/22/2017 [facility] Weight 136.364 07/22/2017 [facility] Respitory Rate 18 07/22/2017 [facility] Heart Rate 105 07/22/2017 [facility] Systolic (mm Hg) 111 07/22/2017 [facility] Diastolic (mm Hg) 73 07/22/2017 [facility] Temperature Oral (F) 98.0 F 03/15/2017 [facility] Heart Rate 97 03/15/2017 [facility] Respitory Rate 16 03/15/2017 [facility] Systolic (mm Hg) 124 03/15/2017 [facility] Diastolic (mm Hg) 79 03/15/2017 [facility] Respitory Rate 16 03/15/2017 [facility] Heart Rate 77 03/15/2017 [facility] Systolic (mm Hg) 116 03/15/2017 [facility] Diastolic (mm Hg) 77 03/15/2017 [facility] Respitory Rate 16 03/15/2017 [facility] Temperature Oral (F) 98.8 F 03/15/2017 [facility] Systolic (mm Hg) 118 03/15/2017 [facility] Diastolic (mm Hg) 65 03/15/2017 [facility] Temperature Oral (F) 99.3 F 03/15/2017 [facility] Heart Rate 94 03/15/2017 [facility] Weight 153.665 03/13/2017 [facility] BMI Calculated 50.03 03/13/2017 [facility] Height 175.26 cm 03/13/2017 [facility] Weight 125 03/12/2017 [facility] BMI Calculated 41.9 03/12/2017 [facility] Height 172.72 cm 03/12/2017 [facility] Systolic (mm Hg) 109 11/05/2016 [facility] Diastolic (mm Hg) 84 11/05/2016 [facility] Temperature Oral (F) 98.2 F 11/05/2016 [facility] Respitory Rate 16 11/05/2016 [facility] Weight 136.364 11/05/2016 [facility] Respitory Rate 18 11/05/2016 [facility] Heart Rate 115 11/05/2016 [facility] Temperature Oral (F) 98.4 F 11/05/2016 [facility] Systolic (mm Hg) 123 11/05/2016 [facility] Diastolic (mm Hg) 74 11/05/2016 [facility] Temperature Oral (F) 98.7 F 05/17/2016 [facility] Respitory Rate 18 05/17/2016 [facility] Systolic (mm Hg) 122 05/17/2016 [facility] Diastolic (mm Hg) 86 05/17/2016 [facility] Heart Rate 82 05/17/2016 [facility] Height 175.26 cm 05/17/2016 [facility] BMI Calculated 44.4 05/17/2016 [facility] Weight 136.364 05/17/2016 [facility] Temperature Oral (F) 98.8 F 05/17/2016 [facility] Heart Rate 102 05/17/2016 [facility] Systolic (mm Hg) 120 05/17/2016 [facility] Diastolic (mm Hg) 84 05/17/2016 [facility] Respitory Rate 20 05/17/2016 [facility] Temperature Oral (F) 98.3 F 05/13/2016 [facility] Respitory Rate 16 05/13/2016 [facility] Heart Rate 97 05/13/2016 [facility] Systolic (mm Hg) 107 05/13/2016 [facility] Diastolic (mm Hg) 56 05/13/2016 [facility] Respitory Rate 16 05/13/2016 [facility] Systolic (mm Hg) 101 05/13/2016 [facility] Diastolic (mm Hg) 70 05/13/2016 [facility] Heart Rate 103 05/13/2016 [facility] BMI Calculated 46.76 05/13/2016 [facility] Weight 143.636 05/13/2016 [facility] Height 175.26 cm 05/13/2016 [facility] Heart Rate 124 05/13/2016 [facility] Respitory Rate 19 05/13/2016 [facility] Temperature Oral (F) 99.3 F 05/13/2016 [facility] Systolic (mm Hg) 121 05/13/2016 [facility] Diastolic (mm Hg) 66 05/13/2016 [facility] Systolic (mm Hg) 122 04/20/2016 [facility] Diastolic (mm Hg) 75 04/20/2016 [facility] Respitory Rate 18 04/20/2016 [facility] Temperature Oral (F) 99.2 F 04/20/2016 [facility] Heart Rate 92 04/20/2016 [facility] Systolic (mm Hg) 110 04/20/2016 [facility] Diastolic (mm Hg) 69 04/20/2016 [facility] Respitory Rate 18 04/20/2016 [facility] Heart Rate 110 04/20/2016 [facility] Temperature Oral (F) 98 F 04/20/2016 [facility] Weight 140.909 04/20/2016 [facility] BMI Calculated 45.87 04/20/2016 [facility] Temperature Oral (F) 98.7 F 04/20/2016 [facility] Respitory Rate 18 04/20/2016 [facility] Systolic (mm Hg) 108 04/20/2016 [facility] Diastolic (mm Hg) 74 04/20/2016 [facility] Heart Rate 114 04/20/2016 [facility] Height 175.26 cm 04/20/2016 [facility] Systolic (mm Hg) 124 01/07/2016 [facility] Diastolic (mm Hg) 66 01/07/2016 [facility] Heart Rate 93 01/07/2016 [facility] Respitory Rate 18 01/07/2016 [facility] Temperature Oral (F) 98.4 F 01/07/2016 [facility] Respitory Rate 18 01/07/2016 [facility] Heart Rate 95 01/07/2016 [facility] Systolic (mm Hg) 130 01/07/2016 [facility] Diastolic (mm Hg) 70 01/07/2016 [facility] Respitory Rate 18 01/07/2016 [facility] Heart Rate 101 01/07/2016 [facility] Systolic (mm Hg) 100 01/07/2016 [facility] Diastolic (mm Hg) 59 01/07/2016 [facility] Weight 143.636 01/07/2016 [facility] Temperature Oral (F) 98.4 F 01/07/2016 [facility] BMI Calculated 48.15 01/07/2016 [facility] Height 172.72 cm 01/07/2016 [facility] Systolic (mm Hg) 126 12/20/2015 [facility] Diastolic (mm Hg) 72 12/20/2015 [facility] Temperature Oral (F) 98.2 F 12/20/2015 [facility] Heart Rate 85 12/20/2015 [facility] Respitory Rate 16 12/20/2015 [facility] Weight 140 12/20/2015 [facility] Height 172.72 cm 12/20/2015 [facility] Temperature Oral (F) 98.3 F 12/20/2015 [facility] BMI Calculated 46.93 12/20/2015 [facility] Heart Rate 105 12/20/2015 [facility] Respitory Rate 18 12/20/2015 [facility] Systolic (mm Hg) 125 12/20/2015 [facility] Diastolic (mm Hg) 77 12/20/2015 [facility] Temperature Oral (F) 98.2 F 06/22/2015 [facility] Respitory Rate 16 06/22/2015 [facility] Heart Rate 93 06/22/2015 [facility] Systolic (mm Hg) 126 06/22/2015 [facility] Diastolic (mm Hg) 87 06/22/2015 [facility] Weight 127.273 06/22/2015 [facility] Systolic (mm Hg) 137 06/22/2015 [facility] Diastolic (mm Hg) 84 06/22/2015 [facility] Respitory Rate 17 06/22/2015 [facility] Heart Rate 112 06/22/2015 [facility] Temperature Oral (F) 98.9 F 06/22/2015 [facility] Height 175.26 cm 06/22/2015 [facility] BMI Calculated 41.44 06/22/2015 [facility] Temperature Oral (F) 98.8 F 08/22/2014 [facility] Respitory Rate 20 08/22/2014 [facility] Heart Rate 85 08/22/2014 [facility] Systolic (mm Hg) 116 08/22/2014 [facility] Diastolic (mm Hg) 74 08/22/2014 [facility] Weight 122.727 08/22/2014 [facility] BMI Calculated 39.96 08/22/2014 [facility] Height 175.26 cm 08/22/2014 [facility] Heart Rate 97 08/21/2014 [facility] Systolic (mm Hg) 130 08/21/2014 [facility] Diastolic (mm Hg) 75 08/21/2014 [facility] Respitory Rate 18 08/21/2014 [facility] Temperature Oral (F) 98.1 F 08/21/2014 [facility] Height 177.8 cm 08/21/2014 [facility] Weight 122.727 08/21/2014 [facility] BMI Calculated 38.82 08/21/2014 [facility] Heart Rate 84 01/12/2014 [facility] Respitory Rate 18 01/12/2014 [facility] Systolic (mm Hg) 122 01/12/2014 [facility] Diastolic (mm Hg) 72 01/12/2014 [facility] Height 177.8 cm 01/12/2014 [facility] BMI Calculated 40.26 01/12/2014 [facility] Weight 127.273 01/12/2014 [facility] Systolic (mm Hg) 123 01/12/2014 [facility] Diastolic (mm Hg) 72 01/12/2014 [facility] Heart Rate 89 01/12/2014 [facility] Temperature Oral (F) 98.4 F 01/12/2014 [facility] Respitory Rate 18 01/12/2014 [facility] BMI Calculated 44.86 09/28/2013 [facility] Weight 141.818 09/28/2013 [facility] Temperature Oral (F) 98.7 F 09/28/2013 [facility] Height 177.8 cm 09/28/2013 [facility] Respitory Rate 18 09/28/2013 [facility] Systolic (mm Hg) 116 09/28/2013 [facility] Diastolic (mm Hg) 54 09/28/2013 [facility] Heart Rate 88 09/28/2013 [facility] Systolic (mm Hg) 121 07/17/2013 [facility] Diastolic (mm Hg) 61 07/17/2013 [facility] Temperature Oral (F) 98.0 F 07/17/2013 [facility] Respitory Rate 18 07/17/2013 [facility] Heart Rate 98 07/17/2013 [facility] Diastolic (mm Hg) 54 07/17/2013 [facility] Heart Rate 104 07/17/2013 [facility] Respitory Rate 20 07/17/2013 [facility] Systolic (mm Hg) 120 07/17/2013 [facility] Height 180.34 cm 07/17/2013 [facility] Weight 140.909 07/17/2013 [facility] Heart Rate 91 07/17/2013 [facility] Diastolic (mm Hg) 82 07/17/2013 [facility] Respitory Rate 18 07/17/2013 [facility] Systolic (mm Hg) 149 07/17/2013 [facility] Temperature Oral (F) 98.9 F 07/17/2013 [facility] Weight 136.364 07/02/2012 [facility] Height 180.34 cm 07/02/2012 [facility] Heart Rate 84 04/28/2012 [facility] Respitory Rate 18 04/28/2012 [facility] Systolic (mm Hg) 126 04/28/2012 [facility] Diastolic (mm Hg) 72 04/28/2012 [facility] Respitory Rate 20 04/28/2012 [facility] Heart Rate 82 04/28/2012 [facility] Diastolic (mm Hg) 76 04/28/2012 [facility] Systolic (mm Hg) 110 04/28/2012 [facility] Systolic (mm Hg) 107 04/28/2012 [facility] Diastolic (mm Hg) 71 04/28/2012 [facility] Respitory Rate 16 04/28/2012 [facility] Heart Rate 81 04/28/2012 [facility] Height 177.80 cm 04/28/2012 [facility] Weight 136.364 04/28/2012 [facility] Systolic (mm Hg) 122 04/25/2012 [facility] Diastolic (mm Hg) 86 04/25/2012 [facility] Temperature Oral (F) 98.4 F 04/25/2012 [facility] Respitory Rate 18 04/25/2012 [facility] Heart Rate 87 04/25/2012 [facility] Respitory Rate 16 04/25/2012 [facility] Respitory Rate 18 04/25/2012 [facility] Systolic (mm Hg) 124 04/25/2012 [facility] Diastolic (mm Hg) 76 04/25/2012 [facility] Temperature Oral (F) 97.6 F 04/25/2012 [facility] Heart Rate 80 04/25/2012 [facility] Diastolic (mm Hg) 80 04/25/2012 [facility] Systolic (mm Hg) 123 04/25/2012 [facility] Heart Rate 121 04/25/2012 [facility] Temperature Oral (F) 97.9 F 04/25/2012 [facility] Weight 138.409 04/22/2012 [facility] Height 175.26 cm 04/22/2012 [facility] Weight 136.364 04/22/2012 [facility] Height 177.80 cm 04/22/2012 [facility] Height 175.26 cm 04/21/2012 [facility] Weight 136.364 04/21/2012 [facility] Height 180.34 cm 04/20/2012 [facility] Weight 136.364 04/20/2012 [facility] Encounters Location Location Details Encounter Type Encounter Number Reason For Visit Attending Provider ADM Date DC Date Status Source Not Sent Emergency [id number] AYLA SIDDIQUI 04/20/2012 04/20/2012 Active [facility] Not Sent Emergency [id number] FRANCK LANDA 04/20/2012 04/21/2012 Active [facility] Not Sent Inpatient [id number] VALARIE GARDUNO II 04/22/2012 04/25/2012 Active [facility] Not Sent DS [id number] ROSA KHAN 04/28/2012 04/28/2012 Active [facility] Not Sent Emergency [id number] SHERIF GREEN 07/01/2012 07/02/2012 Active [facility] Not Sent Emergency [id number] FRANCK LANDA 07/17/2013 07/17/2013 Active [facility] [id number] Gilbert Reesterrance 07/28/2013 07/29/2013 [facility] Not [facility] Emergency [id number] STEPHAN TORRES 08/02/2013 08/02/2013 Active [facility] [id number] Brown Motley Jr 09/28/2013 09/28/2013 [facility] [id number] Brown Motley Jr 01/12/2014 01/12/2014 [facility] [id number] Alec Magana 08/21/2014 08/22/2014 [facility] [id number] Franck Landa 08/22/2014 08/22/2014 [facility] [id number] Melo Meier 02/07/2015 02/07/2015 [facility] [id number] Kevin Callahan 02/17/2015 02/18/2015 [facility] Outpatient [facility] [id number] Hamida Verdugo 06/22/2015 06/22/2015 [facility] [id number] Mani Santa 12/20/2015 12/20/2015 [facility] [id number] Carroll Musetequila 01/07/2016 01/07/2016 [facility] Recurring [id number] Luis Felipe Haddad 03/08/2016 04/07/2016 [facility] Emergency [id number] Smita Pate 04/20/2016 04/20/2016 [facility] Emergency [id number] Jorge Sandoval 05/13/2016 05/13/2016 [facility] Emergency [id number] Alda Burdick 05/17/2016 05/17/2016 [facility] Emergency [id number] Michael Meza 11/05/2016 11/05/2016 [facility] Inpatient [id number] Vilma Garibay 03/12/2017 03/15/2017 [facility] Emergency [id number] Franck Jane 07/22/2017 07/22/2017 [facility] Emergency [id number] Ortiz Jesus 08/18/2017 08/18/2017 [facility] [id number] Luba Crawford 09/29/2017 09/30/2017 [facility] [id number] Messi Mendez 11/18/2017 11/19/2017 [facility] [id number] Ortiz Jesus 02/10/2018 02/11/2018 [facility] [id number] Ortiz Jesus 03/03/2018 03/03/2018 [facility] [id number] Irvin Rocha 03/17/2018 03/17/2018 [facility] [id number] Brown Villeda Jr 07/28/2018 08/03/2018 [facility] [id number] Zbigniew Zepeda 09/28/2018 09/29/2018 [facility] Procedures Procedure Code Date Perfomer Comments Source section [id number] [facility] ORIF - Open reduction and internal fixation of fracture<sup>1</sup> [id number] left ankle [facility] section [id number] [facility] ORIF - Open reduction and internal fixation of fracture<sup>1</sup> [id number] left ankle [facility] section [id number] [facility] ORIF - Open reduction and internal fixation of fracture<sup>1</sup> [id number] left ankle [facility] section [id number] [facility] ORIF - Open reduction and internal fixation of fracture<sup>1</sup> [id number] left ankle [facility]
--- OUTSIDE RECORDS SUMMARY | 2018-11-19 22:59 | XMS REPORT | Summary of Care ---
Author Author [facility] Organization [facility] Address Unknown Phone Unavailable Encounter HQ Whitney(FIN) [id number] Date(s): 09/28/18 - 09/29/18 [facility] [address] [place] [address]- Encounter Diagnosis Smoker (Discharge Diagnosis) - 09/29/18 COPD exacerbation (Discharge Diagnosis) - 09/29/18 Discharge Disposition: Home or Self Care Attending Physician: Zbigniew Zepeda DO Vital Signs 1 2 3 Most recent to oldest [Reference Range]: 175.26 cm (09/28/18 6:50 PM) Height 98.3 DegF (09/29/18 1:41 AM) 98.1 DegF (09/29/18 12:46 AM) 100 DegF *HI* (09/28/18 8:20 PM) Temperature Oral [96.4-99.1 DegF] 93/62 mmHg (09/29/18 1:41 AM) 103/60 mmHg (09/29/18 12:46 AM) 126/81 mmHg (09/28/18 8:33 PM) Blood Pressure [90-140/60-90 mmHg] 20 BRMIN (09/29/18 1:41 AM) 20 BRMIN (09/29/18 12:46 AM) 20 BRMIN (09/28/18 8:20 PM) Respiratory Rate [14-20 BRMIN] 85 bpm (09/29/18 1:41 AM) 87 bpm (09/29/18 12:46 AM) 118 bpm *HI* (09/28/18 6:50 PM) Peripheral Pulse Rate [60-100 bpm] 143.182 kg (09/28/18 6:50 PM) Weight 46.61 m2 (09/28/18 6:50 PM) Body Mass Index Problem List Condition Effective Dates Status Health Status Informant Anemia(Confirmed) Active Ankle Active fracture(Confirmed) Anxiety(Confirmed) Active Asthma(Confirmed) Active Asthma(Confirmed) Resolved Active section(Confirmed) COPD (chronic Resolved obstructive pulmonary disease)(Confirmed) DVT - Deep vein Resolved thrombosis(Confirmed )1 PE - Pulmonary Active embolism(Confirmed) Pneumonia(Confirmed) Resolved Schizophrenia(Confir Active med) Sleep Active apnea(Confirmed) 1lung Allergies, Adverse Reactions, Alerts Substance Reaction Severity Status NKDA Active Medications acetaminophen 650 mg, 2 tab, Route: PO, Drug form: TAB, ONCE, Dosing Weight 143.182, kg, Prior ity: STAT, Start date: 09/28/18 23:23:00 CDT, Stop date: 09/28/18 23:23:00 CDT Notes: Do not exceed 4 gm/day. (Same as: Tylenol) Start Date: 09/28/18 Stop Date: 09/29/18 Status: Completed acetaminophen 650 mg, 2 tab, Route: PO, Drug form: TAB, ONCE, Dosing Weight 143.182, kg, Prior ity: STAT, Start date: 09/28/18 20:37:00 CDT, Stop date: 09/28/18 20:37:00 CDT Notes: Do not exceed 4 gm/day. (Same as: Tylenol) Start Date: 09/28/18 Stop Date: 09/28/18 Status: Completed albuterol 0.083% inhalation solution 2.49 mg, 3 mL, Route: NEB, Drug form: SOLN, PRN, Dosing Weight 147.273, kg, PRN Respiratory Pathway, Start date: 09/28/18 18:50:00 CDT, Duration: 30 day, Stop d ate: 10/28/18 18:49:00 CDT Notes: SEE RT DOCUMENTATION (Same as: Proventil) Start Date: 09/28/18 Stop Date: 09/29/18 Status: Discontinued albuterol 0.083% inhalation solution 2.49 mg, 3 mL, Route: NEB, Drug form: SOLN, ONCE, Dosing Weight 143.182, kg, Piper ority: STAT, Start date: 09/28/18 21:28:00 CDT, Stop date: 09/28/18 21:28:00 CDT Notes: SEE RT DOCUMENTATION (Same as: Proventil) Start Date: 09/28/18 Stop Date: 09/28/18 Status: Completed albuterol 90 mcg/inh inhalation aerosol 2 puff, INHALATION, QID, # 1 ea, 0 Refill(s) Start Date: 09/29/18 Stop Date: 10/29/18 Status: Ordered DuoNeb inhalation solution 3 ml, Route: NEB, Drug Form: SOLN, Dosing Weight 147.273, kg, ONCE, Start date: 09/28/18 18:50:00 CDT, Stop date: 09/28/18 18:50:00 CDT Notes: (Same as: Duoneb) Start Date: 09/28/18 Stop Date: 09/28/18 Status: Completed Flovent HFA 220 mcg/inh inhalation aerosol with adapter 1 puff, INHALATION, BID, # 1 ea, 0 Refill(s) Start Date: 09/29/18 Stop Date: 10/29/18 Status: Ordered methylPREDNISolone SODium SUCCinate 125 mg, Route: IVP, ONCE, Dosing Weight 143.182, kg, Priority: STAT, Start date: 09/28/18 20:37:00 CDT, Stop date: 09/28/18 20:37:00 CDT Start Date: 09/28/18 Stop Date: 09/28/18 Status: Completed morphine Sulfate 4 mg, 1 mL, Route: IVP, Drug form: SOLN, ONCE, Dosing Weight 143.182, kg, Priori ty: STAT, Start date: 09/28/18 20:37:00 CDT, Stop date: 09/28/18 20:37:00 CDT Notes: (Same as:MORPhine Sulfate) Start Date: 09/28/18 Stop Date: 09/28/18 Status: Completed ondansetron 4 mg, 2 mL, Route: IVP, Drug form: INJ, ONCE, Dosing Weight 143.182, kg, Priorit y: STAT, Start date: 09/28/18 20:37:00 CDT, Stop date: 09/28/18 20:37:00 CDT Notes: (Same as: Forrest) MEDICATION WASTE Product Size: 4 mgProduct Was carmina: ___ mg Start Date: 09/28/18 Stop Date: 09/28/18 Status: Completed predniSONE 20 mg oral tablet 60 mg=3 tab, PO, Daily, Take 3 tablets for 60 mg dose, X 3 day, # 9 tab, 0 Refil l(s) Start Date: 09/29/18 Stop Date: 10/02/18 Status: Ordered Sodium Chloride 0.9% (Bolus) IV 1,000 mL, 1000 ml/hr, Infuse Over: 1 hr, Route: IV, 1,000, Drug form: INJ, ONCE, Priority: STAT, Dosing Weight 143.182 kg, Start date: 09/28/18 20:37:00 CDT, St op date: 09/28/18 20:37:00 CDT Start Date: 09/28/18 Stop Date: 09/28/18 Status: Completed Solu-MEDROL 125 mg, 2 mL, Route: IVP, Drug form: INJ, ONCE, Dosing Weight 147.273, kg, Prior ity: STAT, Start date: 09/28/18 18:51:00 CDT, Stop date: 09/28/18 18:51:00 CDT Notes: (Same as:Solu-MEDROL, A-Methapred) Start Date: 09/28/18 Stop Date: 09/28/18 Status: Completed Results ELECTROLYTES Most recent to 1 oldest [Reference Range]: Sodium Lvl [135-145 141 mEq/L mEq/L] (09/28/18 8:19 PM) Potassium Lvl 3.9 mEq/L [3.5-5.1 mEq/L] (09/28/18 8:19 PM) Chloride Lvl [95-109 110 mEq/L mEq/L] *HI* (09/28/18 8:19 PM) CO2 [24-32 mEq/L] 25 mEq/L (09/28/18 8:19 PM) AGAP [10.0-20.0 9.9 mEq/L mEq/L] *LOW* (09/28/18 8:19 PM) CHEM PANEL Most recent to 1 oldest [Reference Range]: Creatinine Lvl 0.92 mg/dL [0.50-1.40 mg/dL] (09/28/18 8:19 PM) eGFR 78 mL/min/1.73m2 1 *NA* (09/28/18 8:19 PM) BUN [7-22 mg/dL] 13 mg/dL (09/28/18 8:19 PM) Glucose Lvl [70-99 93 mg/dL mg/dL] (09/28/18 8:19 PM) Calcium Lvl 8.7 mg/dL [8.5-10.5 mg/dL] (09/28/18 8:19 PM) 1Result Comment: The eGFR is calculated using [...] from the National Kidney Disease Education Program ( NKDEP) which additionally recommends that when the eGFR is used in patients with extremes of body mass index for purposes of drug dosing, the eGFR should be mul tiplied by the estimated BMI. CARDIAC ENZYMES Most recent to 1 oldest [Reference Range]: Troponin-I <0.02 ng/mL [0.00-0.40 ng/mL] (09/28/18 8:19 PM) BNP [<=100 pg/mL] 11 pg/mL (09/28/18 8:19 PM) HEMATOLOGY Most recent to 1 oldest [Reference Range]: WBC [3.7-10.4 K/CMM] 12.0 K/CMM *HI* (09/28/18 8:19 PM) RBC [4.20-5.40 4.79 M/CMM M/CMM] (09/28/18 8:19 PM) Hgb [12.0-16.0 g/dL] 12.2 g/dL (09/28/18 8:19 PM) Hct [36.0-48.0 %] 38.0 % (09/28/18 8: PM) MCV [80.0-98.0 fL] 79.3 fL *LOW* (09/28/18 8:19 PM) MCH [27.0-31.0 pg] 25.4 pg *LOW* (09/28/18 8: PM) MCHC [32.0-36.0 32.1 g/dL g/dL] (09/28/18 8:19 PM) RDW [11.5-14.5 %] 16.5 % *HI* (09/28/18 8:19 PM) MPV [7.4-10.4 fL] 8.0 fL (09/28/18 8:19 PM) Platelet [133-450 298 K/CMM K/CMM] (09/28/18 8:19 PM) Segs [45.0-75.0 %] 77.8 % *HI* (09/28/18 8:19 PM) Lymphocytes 14.9 % [20.0-40.0 %] *LOW* (09/28/18 8:19 PM) Monocytes [2.0-12.0 3.9 % %] (09/28/18 8:19 PM) Eosinophils [0.0-4.0 2.8 % %] (09/28/18 8:19 PM) Basophils [0.0-1.0 0.6 % %] (09/28/18 8:19 PM) Neutrophils # 9.3 K/CMM [1.5-8.1 K/CMM] *HI* (09/28/18 8:19 PM) Lymphocytes # 1.8 K/CMM [1.0-5.5 K/CMM] (09/28/18 8:19 PM) Monocytes # [0.0-0.8 0.5 K/CMM K/CMM] (09/28/18 8:19 PM) Eosinophils # 0.3 K/CMM [0.0-0.5 K/CMM] (09/28/18 8:19 PM) Basophils # [0.0-0.2 0.1 K/CMM K/CMM] (09/28/18 8:19 PM) D-Dimer <0.27 ug/mL FEU *NA* (09/28/18 11:18 PM) Immunizations Not Given Vaccine Date Status Refusal Reason pneumococcal 23-valent vaccine 03/13/17 Not Given Patient Refuses Procedures Procedure Date Related Diagnosis Body Site Status section Completed ORIF - Open reduction and internal fixation Completed of fracture1 1left ankle Social History Social History Type Response Substance Abuse Use: Current. Type: Marijuana. Recreational Drug Route: Inhaled. Frequency: Daily. IV drug use: No. Drug use interferes with work/home: No. Ready to change: No. Household substance abuse concerns: No. Cessation Education Provided: Yes. Alcohol Current, Type Liquor. Frequency: 1-2 times per month. Previous treatment: None. Alcohol use interferes with work or home: No. Drinks more than intended: No. Others hurt by drinking: No. Ready to change: No. Household alcohol concerns: No. Smoking Status Current every day smoker; Type: Cigarettes; Ready to change: No; Concerns about tobacco use in household: Yes; Lives with someone who smokes; Cigarette Smoking Last 365 Days Yes; Reg Smoking Cessation Counseling No; Tobacco use per day: 10; 1 entered on: 09/28/18 1smoking cessation education given, verbalized understanding Assessment and Plan No data available for this section
[2018-11-19 23:00] VITALS: BP 115/76
[2018-11-19] MEDS ORDERED: ACETAMINOPHEN 1000 MG/100 ML IV PRN (23:00)
[2018-11-19] MEDS ORDERED: ALBUTEROL SULF 0.083% NEB SOLN 3 ML NEB NEB PRN (23:00)
[2018-11-19] MEDS ORDERED: ACETAMINOPHEN 325 MG TAB PO PRN (23:00)
--- OUTSIDE RECORDS SUMMARY | 2018-11-19 23:00 | XMS REPORT | Summary of Care ---
Author Author [facility] Organization [facility] Address Unknown Phone Unavailable Encounter MARGARET Olson(ARY) [id number] Date(s): 11/04/16 - 11/05/16 [facility] [address] [place] [address]- [phone] Discharge Diagnosis: Acute chest pain Discharge Disposition: Home or Self Care Attending Physician: Michael Meza MD Vital Signs Most recent to 1 2 oldest [Reference Range]: Temperature Oral 98.2 DegF 98.4 DegF [96.4-99.1 DegF] (11/05/16 3:17 AM) (11/04/16 10:23 PM) Blood Pressure 123/74 mmHg [90-140/60-90 mmHg] (11/04/16 10:23 PM) Systolic Blood 109 mmHg Pressure [90-140 (11/05/16 3:17 AM) mmHg] Diastolic Blood 84 mmHg Pressure [60-90 (11/05/16 3:17 AM) mmHg] Respiratory Rate 16 BRMIN 18 BRMIN [14-20 BRMIN] (11/05/16 3:17 AM) (11/04/16 10:23 PM) Peripheral Pulse 115 bpm Rate [60-100 bpm] *HI* (11/04/16 10:23 PM) Weight 136.364 kg (11/04/16 10:23 PM) Problem List Condition Effective Dates Status Health Status Informant Anemia(Confirmed) Active Ankle Active fracture(Confirmed) Anxiety(Confirmed) Active Asthma(Confirmed) Active Asthma(Confirmed) Resolved Active section(Confirmed) DVT - Deep vein Resolved thrombosis(Confirmed )1 PE - Pulmonary Active embolism(Confirmed) Pneumonia(Confirmed) Resolved Schizophrenia(Confir Active med) Sleep Active apnea(Confirmed) 1lung Allergies, Adverse Reactions, Alerts Substance Reaction Severity Status NKDA Active Medications morphine Sulfate 4 mg, 1 mL, Route: IVP, Drug form: SOLN, ONCE, Dosing Weight 136.364, kg, Priori ty: STAT, Start date: 11/04/16 22:50:00 CDT, Stop date: 11/04/16 22:50:00 CDT Notes: (Same as:MORPhine Sulfate) Start Date: 11/04/16 Stop Date: 11/05/16 Status: Completed Saline Flush 0.9% 10 mL, Route: IVP, Drug Form: INJ, Dosing Weight 136.364, kg, PRN, PRN Line Flus h, Start date: 11/04/16 22:36:00 CDT, Duration: 30 day, Stop date: 12/04/16 22:3 5:00 CDT Notes: (Same as: BD Posiflush) Start Date: 11/04/16 Stop Date: 11/05/16 Status: Discontinued Tylenol with Codeine #3 oral tablet 1 - 2 tab, PO, Q6H, PRN Pain, X 4 day, # 20 tab, 0 Refill(s) Start Date: 11/05/16 Stop Date: 11/09/16 Status: Ordered Results ELECTROLYTES Most recent to 1 2 oldest [Reference Range]: Sodium Lvl [135-145 140 mEq/L mEq/L] (11/04/16 11:02 PM) Potassium Lvl 3.6 mEq/L [3.5-5.1 mEq/L] (11/04/16 11:02 PM) Chloride Lvl [95-109 106 mEq/L mEq/L] (11/04/16 11:02 PM) CO2 [24-32 mEq/L] 27 mEq/L (11/04/16 11:02 PM) AGAP [10.0-20.0 10.6 mEq/L mEq/L] (11/04/16 11:02 PM) CHEM PANEL Most recent to 1 2 oldest [Reference Range]: Creatinine Lvl 0.81 mg/dL [0.50-1.40 mg/dL] (11/04/16 11:02 PM) eGFR 92 mL/min/1.73m2 1 *NA* (11/04/16 11:02 PM) BUN [7-22 mg/dL] 13 mg/dL (11/04/16 11:02 PM) B/C Ratio [6-25] 16 (11/04/16 11:02 PM) Glucose Lvl [70-99 109 mg/dL mg/dL] *HI* (11/04/16 11:02 PM) Total Protein 6.9 g/dL [6.4-8.4 g/dL] (11/04/16 11:02 PM) Albumin Lvl [3.5-5.0 3.0 g/dL g/dL] *LOW* (11/04/16: PM) Globulin [2.7-4.2 3.9 g/dL g/dL] (11/04/16 11:02 PM) A/G Ratio [0.7-1.6] 0.8 (11/04/16: PM) Calcium Lvl 9.0 mg/dL [8.5-10.5 mg/dL] (11/04/16 11: PM) Magnesium Lvl 2.0 mg/dL [1.8-2.4 mg/dL] (11/04/16 11:02 PM) ALT [0-65 unit/L] 13 unit/L (11/04/16 11:02 PM) AST [0-37 unit/L] 7 unit/L (11/04/16 11:02 PM) Alk Phos [39-136 97 unit/L unit/L] (11/04/16 11:02 PM) Bili Total [0.2-1.3 0.2 mg/dL mg/dL] (11/04/16 11:02 PM) Lipase Lvl [73-393 96 unit/L unit/L] (11/04/16 11:02 PM) 1Result Comment: The eGFR is calculated [...] BMI. CARDIAC ENZYMES Most recent to 1 2 oldest [Reference Range]: Total CK [12-191 37 unit/L 24 unit/L unit/L] (11/05/16 2:54 AM) (11/04/16 11:02 PM) CK MB [0.5-3.6 <0.5 ng/mL 0.7 ng/mL ng/mL] (11/05/16 2:54 AM) (11/04/16 11:02 PM) CK MB Index <1.4 2.9 [0.0-2.5] (11/05/16 2:54 AM) *HI* (11/04/16: PM) Troponin-I <0.02 ng/mL <0.02 ng/mL [0.00-0.40 ng/mL] (11/05/16 2:54 AM) (11/04/16 11: PM) BNP [<=100 pg/mL] 9 pg/mL (11/04/16 11: PM) ENDOCRINOLOGY Most recent to 1 2 oldest [Reference Range]: S Preg [Negative] Negative *NA* (11/04/16 11:02 PM) HEMATOLOGY Most recent to 1 2 oldest [Reference Range]: WBC [3.7-10.4 K/CMM] 11.1 K/CMM *HI* (11/04/16 11:02 PM) RBC [4.20-5.40 4.53 M/CMM M/CMM] (11/04/16 11: PM) Hgb [12.0-16.0 g/dL] 12.2 g/dL (11/04/16 11: PM) Hct [36.0-48.0 %] 35.6 % *LOW* (11/04/16: PM) MCV [80.0-98.0 fL] 78.6 fL *LOW* (11/04/16 11: PM) MCH [27.0-31.0 pg] 27.0 pg (11/04/16 11: PM) MCHC [32.0-36.0 34.3 g/dL g/dL] (11/04/16 11:02 PM) RDW [11.5-14.5 %] 15.6 % *HI* (11/04/16 11:02 PM) Platelet [133-450 280 K/CMM K/CMM] (11/04/16 11:02 PM) MPV [7.4-10.4 fL] 8.4 fL (11/04/16 11:02 PM) Segs [45.0-75.0 %] 63.7 % (11/04/16 11:02 PM) Lymphocytes 28.4 % [20.0-40.0 %] (11/04/16 11:02 PM) Monocytes [2.0-12.0 5.9 % %] (11/04/16 11:02 PM) Eosinophils [0.0-4.0 1.3 % %] (11/04/16 11:02 PM) Basophils [0.0-1.0 0.7 % %] (11/04/16 11:02 PM) Segs-Bands # 7.1 K/CMM [1.5-8.1 K/CMM] (11/04/16 11:02 PM) Lymphocytes # 3.2 K/CMM [1.0-5.5 K/CMM] (11/04/16 11:02 PM) Monocytes # [0.0-0.8 0.7 K/CMM K/CMM] (11/04/16 11:02 PM) Eosinophils # 0.1 K/CMM [0.0-0.5 K/CMM] (11/04/16 11:02 PM) Basophils # [0.0-0.2 0.1 K/CMM K/CMM] (11/04/16 11:02 PM) Microcyte [None 1+ Seen] *ABN* (11/04/16 11:02 PM) PT [12.0-14.7 13.5 seconds seconds] (11/04/16 11:02 PM) INR [0.85-1.17] 1.01 (11/04/16 11:02 PM) PTT [22.9-35.8 29.2 seconds seconds] (11/04/16 11:02 PM) Immunizations No data available for this section Procedures Procedure Date Related Diagnosis Body Site section ORIF - Open reduction and internal fixation of fracture1 1left ankle Social History Social History Type Response Alcohol Current, Type Liquor. Frequency: 1-2 times per year. Previous treatment: None. Alcohol use interferes with work or home: No. Drinks more than intended: No. Others hurt by drinking: No. Ready to change: No. Household alcohol concerns: No. Smoking Status Current every day smoker; Type: Cigarettes; Tobacco use per day: 10; Ready to change: No; Concerns about tobacco use in household: Yes; Lives with someone who smokes; Cigarette Smoking Last 365 Days Yes; Reg Smoking Cessation Counseling No Assessment and Plan No data available for this section
--- OUTSIDE RECORDS SUMMARY | 2018-11-19 23:00 | XMS REPORT | Summary of Care ---
Author Author [facility] Organization [facility] Address Unknown Phone Unavailable Encounter HQ Whitney(ARY) [id number] Date(s): 03/16/18 - 03/17/18 [facility] [address] [place] [address]- Encounter Diagnosis Acute constipation (Discharge Diagnosis) - 03/17/18 Abdominal pain, acute (Discharge Diagnosis) - 03/17/18 Left upper quadrant pain (Final) - 03/20/18 Other constipation (Final) - Chronic obstructive pulmonary disease, unspecified (Final) - Sleep apnea, unspecified (Final) - Anemia, unspecified (Final) - Nicotine dependence, cigarettes, uncomplicated (Final) - Anxiety disorder, unspecified (Final) - Schizophrenia, unspecified (Final) - Discharge Disposition: Home or Self Care Attending Physician: Irvin Rocha Vital Signs 1 2 3 Most recent to oldest [Reference Range]: 98.5 DegF (03/17/18 1:59 AM) 98.4 DegF (03/16/18 9:59 PM) Temperature Oral [96.4-99.1 DegF] 103/84 mmHg (03/17/18 1:59 AM) 116/82 mmHg (03/16/18 11:54 PM) 103/60 mmHg (03/16/18 10:30 PM) Blood Pressure [90-140/60-90 mmHg] 25 BRMIN *HI* (03/17/18 1:59 AM) 21 BRMIN *HI* (03/16/18 11:54 PM) 17 BRMIN (03/16/18 10:30 PM) Respiratory Rate [14-20 BRMIN] 101 bpm *HI* (03/16/18 9:59 PM) Peripheral Pulse Rate [60-100 bpm] 147.273 kg (03/16/18 9:59 PM) Weight Problem List Condition Effective Dates Status Health Status Informant Anemia(Confirmed) Active Ankle Active fracture(Confirmed) Anxiety(Confirmed) Active Asthma(Confirmed) Active Asthma(Confirmed) Resolved Active section(Confirmed) COPD (chronic Resolved obstructive pulmonary disease)(Confirmed) DVT - Deep vein Resolved thrombosis(Confirmed )1 PE - Pulmonary Active embolism(Confirmed) Pneumonia(Confirmed) Resolved Schizophrenia(Confir Active med) Sleep Active apnea(Confirmed) 1lung Allergies, Adverse Reactions, Alerts No Known Medication Allergies Medications fentaNYL 50 microgram, Route: IVP, ONCE, Dosing Weight 147.273, kg, Priority: STAT, Start date: 03/16/18 23:16:00 CDT, Stop date: 03/16/18 23:16:00 CDT Start Date: 03/16/18 Stop Date: 03/16/18 Status: Completed magnesium citrate 1.745 g/30 mL oral liquid 17.45 fl=341 mL, PO, ONCE, PRN Constipation, # 300 mL, 0 Refill(s) Start Date: 03/17/18 Status: Ordered Ultram 50 mg oral tablet 50 mg=1 tab, PO, Q6H, PRN pain, X 3 day, # 12 tab, 0 Refill(s) Start Date: 03/17/18 Stop Date: 03/20/18 Status: Completed Zofran ODT 4 mg, Route: PO, Drug form: TABDIS, ONCE, Dosing Weight 147.273, kg, Priority: S TAT, Start date: 03/16/18 23:16:00 CDT, Stop date: 03/16/18 23:16:00 CDT Start Date: 03/16/18 Stop Date: 03/16/18 Status: Completed Results Most recent to 1 oldest [Reference Range]: Neutrophils # 8.9 K/CMM [1.5-8.1 K/CMM] *HI* (03/16/18 10:56 PM) Lymphocytes # 3.6 K/CMM [1.0-5.5 K/CMM] (03/16/18 10:56 PM) Monocytes # [0.0-0.8 0.6 K/CMM K/CMM] (03/16/18 10:56 PM) Eosinophils # 0.2 K/CMM [0.0-0.5 K/CMM] (03/16/18 10:56 PM) Basophils # [0.0-0.2 0.1 K/CMM K/CMM] (03/16/18 10:56 PM) eGFR 93 mL/min/1.73m2 1 *NA* (03/16/18 10:56 PM) A/G Ratio [0.7-1.6] 0.8 (03/16/18 10:56 PM) Albumin Lvl [3.5-5.0 3.4 g/dL g/dL] *LOW* (03/16/18 10:56 PM) Alk Phos [39-136 98 unit/L unit/L] (03/16/18 10:56 PM) ALT [0-65 unit/L] 17 unit/L (03/16/18 10:56 PM) AGAP [10.0-20.0 13.9 mEq/L mEq/L] (03/16/18 10:56 PM) AST [0-37 unit/L] 15 unit/L (03/16/18 10:56 PM) B/C Ratio [6-25] 16 (03/16/18 10:56 PM) Basophils [0.0-1.0 0.7 % %] (03/16/18 10:56 PM) BUN [7-22 mg/dL] 13 mg/dL (03/16/18 10:56 PM) Calcium Lvl 8.8 mg/dL [8.5-10.5 mg/dL] (03/16/18 10:56 PM) Chloride Lvl [95-109 106 mEq/L mEq/L] (03/16/18 10:56 PM) CO2 [24-32 mEq/L] 25 mEq/L (03/16/18 10:56 PM) Creatinine Lvl 0.79 mg/dL [0.50-1.40 mg/dL] (03/16/18 10:56 PM) Eosinophils [0.0-4.0 1.4 % %] (03/16/18 10:56 PM) Globulin [2.7-4.2 4.4 g/dL g/dL] *HI* (03/16/18 10:56 PM) Glucose Lvl [70-99 84 mg/dL mg/dL] (03/16/18 10:56 PM) Hct [36.0-48.0 %] 39.2 % (03/16/18 10:56 PM) Hgb [12.0-16.0 g/dL] 13.0 g/dL (03/16/18 10:56 PM) Potassium Lvl 3.9 mEq/L [3.5-5.1 mEq/L] (03/16/18 10:56 PM) Lipase Lvl [73-393 91 unit/L unit/L] (03/16/18 10:56 PM) Lymphocytes 27.3 % [20.0-40.0 %] (03/16/18 10:56 PM) MCH [27.0-31.0 pg] 25.6 pg *LOW* (03/16/18 10:56 PM) MCHC [32.0-36.0 33.1 g/dL g/dL] (03/16/18 10:56 PM) MCV [80.0-98.0 fL] 77.4 fL *LOW* (03/16/18 10:56 PM) Microcyte [None 1+ Seen] *ABN* (03/16/18 10:56 PM) Monocytes [2.0-12.0 4.2 % %] (03/16/18 10:56 PM) MPV [7.4-10.4 fL] 8.8 fL (03/16/18 10:56 PM) Sodium Lvl [135-145 141 mEq/L mEq/L] (03/16/18 10:56 PM) Platelet [133-450 292 K/CMM K/CMM] (03/16/18 10:56 PM) Segs [45.0-75.0 %] 66.4 % (03/16/18 10:56 PM) Total Protein 7.8 g/dL [6.4-8.4 g/dL] (03/16/18 10:56 PM) RBC [4.20-5.40 5.07 M/CMM M/CMM] (03/16/18 10:56 PM) RDW [11.5-14.5 %] 16.6 % *HI* (03/16/18 10:56 PM) Bili Total [0.2-1.3 0.3 mg/dL mg/dL] (03/16/18 10:56 PM) Troponin-I <0.02 ng/mL [0.00-0.40 ng/mL] (03/16/18 10:56 PM) UA Bacteria [None Few /HPF Seen /HPF] *NA* (03/16/18 10:56 PM) UA Bili [Negative] Negative *NA* (03/16/18 10:56 PM) UA Blood [Negative] Negative (03/16/18 10:56 PM) UA Color [Yellow] Yellow *NA* (03/16/18 10:56 PM) UA Glucose [Negative Negative mg/dL mg/dL] *NA* (03/16/18 10:56 PM) UA Ketones [Negative Negative mg/dL mg/dL] *NA* (03/16/18 10:56 PM) UA Leuk Est Trace [Negative] *ABN* (03/16/18 10:56 PM) UA Nitrite Negative [Negative] (03/16/18 10:56 PM) UA pH [5.0-8.0] 6.0 (03/16/18 10:56 PM) U Preg [Negative] Negative (03/16/18 10:56 PM) UA Protein [Negative Negative mg/dL mg/dL] (03/16/18 10:56 PM) UA RBC [0-2 /HPF] 2 /HPF (03/16/18 10:56 PM) UA Spec Grav 1.020 [<=1.030] (03/16/18 10:56 PM) UA Sq Epi [Few /LPF] Occasional /LPF *NA* (03/16/18 10:56 PM) UA Turbidity [Clear] Clear (03/16/18 10:56 PM) UA Urobilinogen <=1.0 mg/dL [0.1-1.0 mg/dL] *NA* (03/16/18 10:56 PM) UA WBC [0-5 /HPF] 1 /HPF (03/16/18 10:56 PM) WBC [3.7-10.4 K/CMM] 13.4 K/CMM *HI* (03/16/18 10:56 PM) 1Result Comment: The eGFR is calculated [...] be mul tiplied by the estimated BMI. Immunizations Not Given Vaccine Date Status Refusal [...]
--- OUTSIDE RECORDS SUMMARY | 2018-11-19 23:00 | XMS REPORT | Summary of Care ---
Author Author [facility] Organization [facility] Address Unknown Phone Unavailable Encounter [facility](ARY) [id number] Date(s): 03/16/18 - 03/17/18 [facility] [address] [place] [address]- [phone] Encounter Diagnosis Acute constipation (Discharge Diagnosis) - [...] citrate 1.745 g/30 mL oral liquid 17.45 ps=179 mL, PO, ONCE, PRN Constipation, # 300 [...]
--- OUTSIDE RECORDS SUMMARY | 2018-11-19 23:00 | XMS REPORT | Summary of Care ---
Author Author [facility] Organization [facility] Address Unknown Phone Unavailable Encounter [facility](ARY) [id number] Date(s): 03/16/18 - 03/17/18 [facility] [address] [place] [address]- [phone] Encounter Diagnosis Acute constipation (Discharge Diagnosis) - [...] citrate 1.745 g/30 mL oral liquid 17.45 up=760 mL, PO, ONCE, PRN Constipation, # 300 [...]
--- OUTSIDE RECORDS SUMMARY | 2018-11-19 23:01 | XMS REPORT | Summary of Care ---
Author Author [facility] Organization [facility] Address Unknown Phone Unavailable Encounter MARGARET Olson(ARY) [phone] Date(s): 07/27/18 - 08/02/18 [facility] [address] [place] [address]- Encounter Diagnosis Chronic obstructive pulmonary disease with acute lower respiratory infection (Final) - Discharge Disposition: Home or Self Care Attending Physician: Brown Swain MD Admitting Physician: Brown Swain MD Vital Signs 1 2 3 Most recent to oldest [Reference Range]: 175.26 cm (07/28/18 4:47 AM) 162.56 cm (07/27/18 11:10 PM) Height 98.5 DegF (08/02/18 4:51 PM) 97.7 DegF (08/02/18 11:37 AM) 98.2 DegF (08/02/18 4:00 AM) Temperature Oral [96.4-99.1 DegF] 118/79 mmHg (08/02/18 4:51 PM) 125/74 mmHg (08/02/18 11:37 AM) 112/76 mmHg (08/02/18 7:15 AM) Blood Pressure [90-140/60-90 mmHg] 18 BRMIN (08/02/18 4:51 PM) 18 BRMIN (08/02/18 11:37 AM) 18 BRMIN (08/02/18 7:15 AM) Respiratory Rate [14-20 BRMIN] 74 bpm (08/02/18 4:51 PM) 97 bpm (08/02/18 11:37 AM) 75 bpm (08/02/18 7:15 AM) Peripheral Pulse Rate [60-100 bpm] 147.273 kg (07/28/18 4:47 AM) 147.273 kg (07/27/18 11:10 PM) Weight 47.95 m2 (07/28/18 4:47 AM) 55.73 m2 (07/27/18 11:10 PM) Body Mass Index Problem List Condition [...] TAB, Q4H, Dosing Weight 147.273, kg, PRN Fo r Temp > 100.4 F, Start date: 07/28/18 4:00:00 SONOGRAM TECHNICIAN, Duration: 30 day, Stop date: 08/27/18 3:59:00 CDT Notes: Do not exceed 4 gm/day. (Same as: Tylenol) Start Date: 07/28/18 Stop Date: 08/02/18 Status: Discontinued Advair Diskus 500 mcg-50 mcg inhalation powder 1 puff, Route: INHALATION, Drug Form: AERO, Dosing Weight 147.273, kg, BID, Star t date: 07/28/18 9:00:00 SONOGRAM TECHNICIAN, Duration: 30 day, Stop date: 08/26/18 17:00:00 CDT Start Date: 07/28/18 Stop Date: 07/28/18 Status: Deleted albuterol 2.49 mg, 3 mL, Route: NEB, Drug form: SOLN, RQID, Start date: 07/28/18 7:00:[address], Duration: 30 day, Stop date: 08/26/18 19:00:00 CDT Notes: SEE RT DOCUMENTATION (Same as: Proventil) Start Date: 07/28/18 Stop Date: 08/02/18 Status: Discontinued albuterol 0.083% inhalation solution 2.49 mg, 3 mL, Route: NEB, Drug form: SOLN, RQ2H, Dosing Weight 147.273, kg, PRN Wheezing, Priority: Routine, Start date: 07/28/18 4:00:00 SONOGRAM TECHNICIAN, Duration: 30 day, Stop date: 08/27/18 3:59:00 CDT Notes: SEE RT DOCUMENTATION (Same as: Marysol) Start Date: 07/28/18 Stop Date: 08/02/18 Status: Discontinued albuterol-ipratropium 2.5-0.5 mg inhalation solution 3 mL, Route: NEB, Drug Form: SOLN, Dosing Weight 147.273, kg, ONCE, STAT, Start date: 07/28/18 0:38:00 SONOGRAM TECHNICIAN, Stop date: 07/28/18 0:38:00 SONOGRAM TECHNICIAN Notes: (Same as: Vince) Start Date: 07/28/18 Stop Date: 07/28/18 Status: Completed albuterol-ipratropium 2.5-0.5 mg inhalation solution 9 mL, Route: NEB, Drug Form: SOLN, Dosing Weight 147.273, kg, ONCE, STAT, Start date: 07/27/18 23:38:00 SONOGRAM TECHNICIAN, Stop date: 07/27/18 23:38:00 SONOGRAM TECHNICIAN Notes: (Same as: Vince) Start Date: 07/27/18 Stop Date: 07/27/18 Status: Completed albuterol-ipratropium 2.5-0.5 mg inhalation solution 3 mL, Route: NEB, Drug Form: SOLN, Dosing Weight 147.273, kg, RQ6H, Start date: 07/28/18 8:00:00 SONOGRAM TECHNICIAN, Duration: 30 day, Stop date: 08/27/18 2:00:00 CDT Notes: (Same as: Vince) Start Date: 07/28/18 Stop Date: 07/28/18 Status: Canceled azithromycin + Sodium Chloride 0.9% IV 250 mL 500 mg, Route: IVPB, [id number], Dosing Weight 147.273, kg, Start date: 07/28/18 4: 00:00 SONOGRAM TECHNICIAN, Duration: 3 day, Stop date: 07/30/18 4:00:00 SONOGRAM TECHNICIAN, ABX Indication: Non -PNA Respiratory Tract Infection Notes: (Same As: Zithromax IV) Start Date: 07/28/18 Stop Date: 07/30/18 Status: Completed Azithromycin 5 Day Dose Pack 250 mg oral tablet See Instructions, Take 2 tablets by mouth the first day then 1 tablet by mouth d ays 2-5., X 5 day, # 6 tab, 0 Refill(s) Start Date: 08/02/18 Stop Date: 08/07/18 Status: Ordered cefTRIAXone + sterile water 10 mL 1 gm, Route: IV, [id number], Dosing Weight 147.273, kg, Start date: 07/28/18 4:00:0 0 SONOGRAM TECHNICIAN, Duration: 5 day, Stop date: 08/01/18 4:00:00 SONOGRAM TECHNICIAN, ABX Indication: Non-PNA Respiratory Tract Infection Notes: (Same As: Rocephin).Use with 100 mL NS and infuse over 30 min MEDICA TION WASTE Product Size: 1000 mgProduct Wasted: ___ mg Start Date: 07/28/18 Stop Date: 08/01/18 Status: Completed Dextrose 50% Syringe 25 gm, 50 mL, Route: IVP, Drug Form: INJ, Dosing Weight 147.273, kg, PRN, PRN Bl ood Glucose Results, Start date: 07/28/18 4:00:00 SONOGRAM TECHNICIAN, Duration: 30 day, Stop da te: 08/27/18 4:59:00 CDT Start Date: 07/28/18 Stop Date: 08/02/18 Status: Discontinued Dextrose 50% Syringe 12.5 gm, 25 mL, Route: IVP, Drug Form: INJ, Dosing Weight 147.273, kg, PRN, PRN Blood Glucose Results, Start date: 07/28/18 4:00:00 SONOGRAM TECHNICIAN, Duration: 30 day, Stop date: 08/27/18 4:59:00 CDT Start Date: 07/28/18 Stop Date: 08/02/18 Status: Discontinued docusate 100 mg, 1 cap, Route: PO, Drug form: CAP, BID, Dosing Weight 147.273, kg, Start date: 07/28/18 9:00:00 SONOGRAM TECHNICIAN, Duration: 30 day, Stop date: 08/26/18 17:00:00 CDT Notes: (Same as: Colace) (Do Not Crush) Start Date: 07/28/18 Stop Date: 08/02/18 Status: Discontinued glucagon 1 mg, Route: IM, Drug form: PDR/INJ, PRN, Dosing Weight 147.273, kg, PRN Blood G lucose Results, Start date: 07/28/18 4:00:00 SONOGRAM TECHNICIAN, Duration: 30 day, Stop date: 0 08/27/18 4:59:00 CDT Start Date: 07/28/18 Stop Date: 08/02/18 Status: Discontinued guaiFENesin 200 mg, 10 mL, Route: PO, Drug form: LIQ, QID, Dosing Weight 147.273, kg, PRN as needed for cough, Start date: 07/30/18 16:59:00 SONOGRAM TECHNICIAN, Duration: 30 day, Stop vasu e: 08/29/18 16:58:00 CDT Notes: (Same as: Edysin) Start Date: 07/30/18 Stop Date: 08/02/18 Status: Discontinued ibuprofen 800 mg, 1 tab, Route: PO, Drug form: TAB, Q8H, Dosing Weight 147.273, kg, PRN Pa in Score 1-3, Start date: 07/29/18 17:25:00 SONOGRAM TECHNICIAN, Duration: 30 day, Stop date: 17:24:00 CDT Notes: (Same as: Motrin)"Do Not Crush" Take with food. Start Date: 07/29/18 Stop Date: 08/02/18 Status: Discontinued Lasix 20 mg, 2 mL, Route: IVP, Drug form: INJ, Daily, Dosing Weight 147.273, kg, Start date: 08/01/18 9:00:00 SONOGRAM TECHNICIAN, Duration: 30 day, Stop date: 08/30/18 9:00:00 CDT Notes: (Same as: Lasix) Start Date: 08/01/18 Stop Date: 08/02/18 Status: Discontinued Lovenox 40 mg, 0.4 mL, Route: SUB-Q, Drug form: INJ, [id number], Dosing Weight 147.273, kg , Start date: 07/28/18 12:00:00 SONOGRAM TECHNICIAN, Duration: 30 day, Stop date: 08/26/18 12:00 :00 CDT Notes: (Same as: Lovenox) Start Date: 07/28/18 Stop Date: 08/02/18 Status: Discontinued Medrol Dosepak 4 mg oral tablet See Instructions, PO, Take by mouth as directed on label., # 1 Pack, 0 Refill(s) Start Date: 08/02/18 Stop Date: 08/08/18 Status: Ordered melatonin 3 mg, 1 tab, Route: PO, Drug form: TAB, Bedtime, Dosing Weight 147.273, kg, PRN Insomnia, Start date: 07/28/18 4:00:00 SONOGRAM TECHNICIAN, Duration: 30 day, Stop date: 9 3:59:00 CDT Notes: (Same as: Melatonin) Start Date: 07/28/18 Stop Date: 08/02/18 Status: Discontinued methylPREDNISolone SODium SUCCinate 125 mg, 2 mL, Route: IVP, Drug form: INJ, ONCE, Dosing Weight 147.273, kg, Prior ity: STAT, Start date: 07/28/18 0:38:00 SONOGRAM TECHNICIAN, Stop date: 07/28/18 0:38:00 SONOGRAM TECHNICIAN Notes: (Same as:Solu-MEDROL, A-Methapred) Start Date: 07/28/18 Stop Date: 07/28/18 Status: Completed methylPREDNISolone SODium SUCCinate 40 mg, 1 mL, Route: IVP, Drug form: INJ, Q8H, Dosing Weight 147.273, kg, Start d ate: 07/28/18 8:00:00 SONOGRAM TECHNICIAN, Duration: 5 day, Stop date: 08/02/18 0:00:00 SONOGRAM TECHNICIAN Notes: (Same as:Solu-MEDROL, A-Methapred) Start Date: 07/28/18 Stop Date: 08/02/18 Status: Completed morphine Sulfate 4 mg, 1 mL, Route: IVP, Drug form: SOLN, ONCE, Dosing Weight 147.273, kg, Priori ty: STAT, Start date: 07/28/18 0:38:00 SONOGRAM TECHNICIAN, Stop date: 07/28/18 0:38:00 SONOGRAM TECHNICIAN Notes: (Same as:MORPhine Sulfate) Start Date: 07/28/18 Stop Date: 07/28/18 Status: Completed morphine Sulfate 4 mg, 1 mL, Route: IVP, Drug form: SOLN, ONCE, Dosing Weight 147.273, kg, Priori ty: STAT, Start date: 07/28/18 4:32:00 SONOGRAM TECHNICIAN, Stop date: 07/28/18 4:32:00 SONOGRAM TECHNICIAN Notes: (Same as:MORPhine Sulfate) Start Date: 07/28/18 Stop Date: 07/28/18 Status: Completed morphine Sulfate 2 mg, 0.5 mL, Route: IVP, Drug form: SOLN, Q3H, Dosing Weight 147.273, kg, PRN P ain Score 7-10, Start date: 07/28/18 4:31:00 SONOGRAM TECHNICIAN, Duration: 30 day, Stop date: 0 08/27/18 4:30:00 CDT Notes: (Same as:MORPhine Sulfate) Start Date: 07/28/18 Stop Date: 08/01/18 Status: Discontinued [place] 5/325 oral tablet 1 tab, Route: PO, Drug Form: TAB, Dosing Weight 147.273, kg, Q6H, PRN Pain Score 1-3, Start date: 07/28/18 11:56:00 SONOGRAM TECHNICIAN, Duration: 30 day, Stop date: 08/27/18 1 1:55:00 CDT Notes: (Same as: [place] 325/5) Do not exceed 4gm/day of acetaminophen. Start Date: 07/28/18 Stop Date: 08/02/18 Status: Discontinued [place] 7.5/325 oral tablet 1 tab, Route: PO, Drug Form: TAB, Dosing Weight 147.273, kg, Q4H, PRN Pain Score 4-6, Start date: 07/28/18 4:31:00 SONOGRAM TECHNICIAN, Duration: 30 day, Stop date: 08/27/18 4: 30:00 CDT Notes: Same as [place] 325-7.5mg Do not exceed 4gm/day of acetaminophen. Start Date: 07/28/18 Stop Date: 08/02/18 Status: Discontinued ondansetron 4 mg, 2 mL, Route: IVP, Drug form: INJ, Q8H, Dosing Weight 147.273, kg, PRN Naus ea & Vomiting, Start date: 07/28/18 4:00:00 SONOGRAM TECHNICIAN, Duration: 30 day, Stop date: 08/27/18 3:59:00 CDT Notes: (Same as: Forrest) MEDICATION WASTE Product Size: 4 mgProduct Was carmina: ___ mg Start Date: 07/28/18 Stop Date: 08/02/18 Status: Discontinued ProAir HFA 1 - 2 puffs, PO, Q4H, PRN Wheezing / cough / shortness of breath, # 1 ea, 0 Refi ll(s) Start Date: 07/28/18 Stop Date: 08/22/18 Status: Ordered Pulmicort Respules 0.5 mg, 2 mL, Route: NEB, Drug form: SUSP, RBID, Start date: 07/28/18 8:00:00 CS T, Duration: 30 day, Stop date: 08/26/18 20:00:00 CDT Notes: (Same As: Pulmicort) Start Date: 07/28/18 Stop Date: 08/02/18 Status: Discontinued Saline Flush 0.9% 10 mL, Route: IVP, Drug Form: INJ, Dosing Weight 147.273, kg, PRN, PRN Line Flus h, Start date: 07/27/18 23:38:00 SONOGRAM TECHNICIAN, Duration: 30 day, Stop date: 08/27/18 0:37 :00 CDT Notes: (Same as: BD Posiflush) Start Date: 07/27/18 Stop Date: 07/28/18 Status: Discontinued Singulair 10 mg, 1 tab, Route: PO, Drug form: TAB, Bedtime, Dosing Weight 147.273, kg, Sta rt date: 07/28/18 21:00:00 SONOGRAM TECHNICIAN, Duration: 30 day, Stop date: 08/26/18 21:00:00 C DT Notes: (Same as:Singulair) Start Date: 07/28/18 Stop Date: 08/02/18 Status: Discontinued Sodium Chloride 0.9% (Bolus) IV 1,000 mL, 1000 ml/hr, Infuse Over: 1 hr, Route: IV, 1,000, Drug form: INJ, ONCE, Priority: STAT, Dosing Weight 147.273 kg, Start date: 07/28/18 0:38:00 SONOGRAM TECHNICIAN, Stop date: 07/28/18 0:38:00 SONOGRAM TECHNICIAN Start Date: 07/28/18 Stop Date: 07/28/18 Status: Completed tramadol 50 mg oral tablet 50 mg, 1 tab, Route: PO, Drug form: TAB, Q6H, Dosing Weight 147.273, kg, PRN Kaylene n Score 1-3, Start date: 08/01/18 17:04:00 SONOGRAM TECHNICIAN, Duration: 30 day, Stop date: 17:03:00 CDT Notes: Not to exceed 400mg/day. (Same As: Ultram) Start Date: 08/01/18 Stop Date: 08/02/18 Status: Discontinued Results ELECTROLYTES 1 2 3 Most recent to oldest [Reference Range]: 143 mEq/L (08/01/18 5:57 PM) 139 mEq/L (07/29/18 2:00 AM) 139 mEq/L (07/28/18 12:32 AM) Sodium Lvl [135-145 mEq/L] 4.4 mEq/L (08/01/18 5:57 PM) 4.1 mEq/L (07/29/18 2:00 AM) 3.5 mEq/L (07/28/18 12:32 AM) Potassium Lvl [3.5-5.1 mEq/L] 104 mEq/L (08/01/18 5:57 PM) 109 mEq/L (07/29/18 2:00 AM) 110 mEq/L *HI* (07/28/18 12:32 AM) Chloride Lvl [95-109 mEq/L] 29 mEq/L (08/01/18 5:57 PM) 22 mEq/L *LOW* (07/29/18 2:00 AM) 23 mEq/L *LOW* (07/28/18 12:32 AM) CO2 [24-32 mEq/L] 14.4 mEq/L (08/01/18 5:57 PM) 12.1 mEq/L (07/29/18 2:00 AM) 9.5 mEq/L *LOW* (07/28/18 12:32 AM) AGAP [10.0-20.0 mEq/L] CHEM PANEL 1 2 3 Most recent to oldest [Reference Range]: 0.96 mg/dL (08/01/18 5:57 PM) 1.06 mg/dL (07/29/18 2:00 AM) 1.10 mg/dL (07/28/18 12:32 AM) Creatinine Lvl [0.50-1.40 mg/dL] 73 mL/min/1.73m2 1 *NA* (08/01/18 5:57 PM) 65 mL/min/1.73m2 2 *NA* (07/29/18 2:00 AM) 63 mL/min/1.73m2 3 *NA* (07/28/18 12:32 AM) eGFR 18 mg/dL (08/01/18 5:57 PM) 11 mg/dL (07/29/18 2:00 AM) 13 mg/dL (07/28/18 12:32 AM) BUN [7-22 mg/dL] 10 (07/29/18 2:00 AM) 12 (07/28/18 12:32 AM) B/C Ratio [6-25] 152 mg/dL *HI* (08/01/18 5:57 PM) 128 mg/dL *HI* (07/29/18 2:00 AM) 118 mg/dL *HI* (07/28/18 12:32 AM) Glucose Lvl [70-99 mg/dL] 7.8 g/dL (07/29/18 2:00 AM) 7.5 g/dL (07/28/18 12:32 AM) Total Protein [6.4-8.4 g/dL] 3.4 g/dL *LOW* (07/29/18 2:00 AM) 3.3 g/dL *LOW* (07/28/18 12:32 AM) Albumin Lvl [3.5-5.0 g/dL] 4.4 g/dL *HI* (07/29/18 2:00 AM) 4.2 g/dL (07/28/18 12:32 AM) Globulin [2.7-4.2 g/dL] 0.8 (07/29/18 2:00 AM) 0.8 (07/28/18 12:32 AM) A/G Ratio [0.7-1.6] 8.6 mg/dL (08/01/18 5:57 PM) 8.8 mg/dL (07/29/18 2:00 AM) 8.2 mg/dL *LOW* (07/28/18 12:32 AM) Calcium Lvl [8.5-10.5 mg/dL] 3.1 mg/dL (07/29/18 2:00 AM) Phosphorus [2.5-4.5 mg/dL] 2.1 mg/dL (07/29/18 2:00 AM) Magnesium Lvl [1.8-2.4 mg/dL] 20 unit/L (07/29/18 2:00 AM) 18 unit/L (07/28/18 12:32 AM) ALT [0-65 unit/L] 16 unit/L (07/29/18 2:00 AM) 11 unit/L (07/28/18 12:32 AM) AST [0-37 unit/L] 100 unit/L (07/29/18 2:00 AM) 99 unit/L (07/28/18 12:32 AM) Alk Phos [39-136 unit/L] 0.1 mg/dL *LOW* (07/29/18 2:00 AM) 0.2 mg/dL (07/28/18 12:32 AM) Bili Total [0.2-1.3 mg/dL] 1Result Comment: The eGFR is calculated using [...] be mul tiplied by the estimated BMI. 2Result Comment: The eGFR is calculated using [...] be mul tiplied by the estimated BMI. 3Result Comment: The eGFR is calculated using [...] tiplied by the estimated BMI. CARDIAC ENZYMES 1 2 3 Most recent to oldest [Reference Range]: 43 unit/L (07/28/18 12:32 AM) Total CK [12-191 unit/L] <0.02 ng/mL (07/28/18 9:09 AM) <0.02 ng/mL (07/28/18 4:37 AM) <0.02 ng/mL (07/28/18 12:32 AM) Troponin-I [0.00-0.40 ng/mL] 41 pg/mL (08/01/18 5:57 PM) 9 pg/mL (07/28/18 12:32 AM) BNP [<=100 pg/mL] LIPIDS 1 2 3 Most recent to oldest [Reference Range]: 3.58 *LOW* (07/30/18 4:52 AM) CHD Risk [3.90-5.80] 129 mg/dL (07/30/18 4:52 AM) Chol [<=199 mg/dL] 81 mg/dL (07/30/18 4:52 AM) Trig [<=149 mg/dL] 36 mg/dL *LOW* (07/30/18 4:52 AM) HDL [>=61 mg/dL] 77 mg/dL (07/30/18 4:52 AM) LDL (Calculated) [<=99 mg/dL] 16 *NA* (07/30/18 4:52 AM) VLDL ENDOCRINOLOGY 1 2 3 Most recent to oldest [Reference Range]: Negative *NA* (07/28/18 12:32 AM) S Preg [Negative] HEMATOLOGY 1 2 3 Most recent to oldest [Reference Range]: 11.4 K/CMM *HI* (07/29/18 2:00 AM) 11.0 K/CMM *HI* (07/28/18 12:32 AM) WBC [3.7-10.4 K/CMM] 4.78 M/CMM (07/29/18 2:00 AM) 4.89 M/CMM (07/28/18 12:32 AM) RBC [4.20-5.40 M/CMM] 12.2 g/dL (07/29/18 2:00 AM) 12.1 g/dL (07/28/18 12:32 AM) Hgb [12.0-16.0 g/dL] 37.1 % (07/29/18 2:00 AM) 38.1 % (07/28/18 12:32 AM) Hct [36.0-48.0 %] 77.6 fL *LOW* (07/29/18 2:00 AM) 77.9 fL *LOW* (07/28/18 12:32 AM) MCV [80.0-98.0 fL] 25.5 pg *LOW* (07/29/18 2:00 AM) 24.8 pg *LOW* (07/28/18 12:32 AM) MCH [27.0-31.0 pg] 32.9 g/dL (07/29/18 2:00 AM) 31.8 g/dL *LOW* (07/28/18 12:32 AM) MCHC [32.0-36.0 g/dL] 16.3 % *HI* (07/29/18 2:00 AM) 16.4 % *HI* (07/28/18 12:32 AM) RDW [11.5-14.5 %] 8.8 fL (07/29/18 2:00 AM) 8.4 fL (07/28/18 12:32 AM) MPV [7.4-10.4 fL] 323 K/CMM (07/29/18 2:00 AM) 294 K/CMM (07/28/18 12:32 AM) Platelet [133-450 K/CMM] 89.4 % *HI* (07/29/18 2:00 AM) 78.0 % *HI* (07/28/18 12:32 AM) Segs [45.0-75.0 %] 6.0 % *LOW* (07/29/18 2:00 AM) 16.1 % *LOW* (07/28/18 12:32 AM) Lymphocytes [20.0-40.0 %] 4.5 % (07/29/18 2:00 AM) 4.4 % (07/28/18 12:32 AM) Monocytes [2.0-12.0 %] 1.0 % (07/28/18 12:32 AM) Eosinophils [0.0-4.0 %] 0.1 % (07/29/18 2:00 AM) 0.5 % (07/28/18 12:32 AM) Basophils [0.0-1.0 %] 10.2 K/CMM *HI* (07/29/18 2:00 AM) 8.6 K/CMM *HI* (07/28/18 12:32 AM) Neutrophils # [1.5-8.1 K/CMM] 0.7 K/CMM *LOW* (07/29/18 2:00 AM) 1.8 K/CMM (07/28/18 12:32 AM) Lymphocytes # [1.0-5.5 K/CMM] 0.5 K/CMM (07/29/18 2:00 AM) 0.5 K/CMM (07/28/18 12:32 AM) Monocytes # [0.0-0.8 K/CMM] 0.1 K/CMM (07/28/18 12:32 AM) Eosinophils # [0.0-0.5 K/CMM] 0.1 K/CMM (07/28/18 12:32 AM) Basophils # [0.0-0.2 K/CMM] 1+ *ABN* (07/29/18 2:00 AM) 1+ *ABN* (07/28/18 12:32 AM) Microcyte [None Seen] 12.6 seconds (07/28/18 12:32 AM) PT [12.0-14.7 seconds] 0.96 (07/28/18 12:32 AM) INR [0.85-1.17] 0.28 ug/mL FEU *NA* (07/28/18 12:54 AM) D-Dimer 32.0 seconds (07/28/18 12:32 AM) PTT [22.9-35.8 seconds] VIRAL - SEROLOGY 1 2 3 Most recent to oldest [Reference Range]: Negative (07/28/18 12:46 PM) Influ A [Negative] Negative (07/28/18 12:46 PM) Influ B [Negative] Immunizations Not Given Vaccine Date Status Refusal [...] use per day: 10; 1 entered on: 07/28/18 1smoking cessation education given, verbalized understanding Assessment and Plan Extracted from: Title: Pulmonary progress note Author: Zane Vences MD Date: 08/02/18 Pulmonary and Critical Care Progress Note Zane Vences MD Subjective/overnight events: No acute events overnight including much better. Reports breathing is back at baseline. Up walking around in the room. This course of prior. Chart reviewed patient examined Review of systems: ROS: General: No fever, no chills, no night sweats, no significant pain Respiratory: No dyspnea, no persistent cough, no sputum production, no hemoptysis Cardiac: No chest pain, no palpitations, no lower extremity edema Gastro: No diarrhea, no nausea, no vomiting, no constipation Scheduled Meds (6): 07/28/18 albuterol 2.49 mg NEB RQID 07/28/18 budesonide (Pulmicort Respules) 0.5 mg NEB RBID 07/28/18 docusate 100 mg PO BID 07/28/18 enoxaparin (Lovenox) 40 mg SUB-Q [id number] 08/01/18 furosemide (Lasix) 20 mg IVP Daily 07/28/18 montelukast (Singulair) 10 mg PO Bedtime Continuous Infusions: None Labs (Last four charted values) WBC H 11.4(JUL 29)H 11.0(JUL 28) Hgb 12.2(JUL 29)12.1(B 18) Hct 37.1(JUL 29)38.1(B 18) Plt 323(JUL 29)294(B ) Na 143(AUG 01)139(B )139(B ) K 4.4(AUG 01)4.1(B )3.5(B ) CO2 29(AUG 01)L 22(JUL 29)L 23(JUL 28) Cl 104(AUG 01)109(B )H 110(B ) Cr 0.96(AUG 01)1.06(JUL 29)1.10(B ) BUN 18(AUG 01)11(FEB )13(B ) Glucose Random H 152(AUG 01)H 128(B )H 118(B 18) Mg 2.1(JUL 29) Phos 3.1(JUL 29) Ca 8.6(AUG 01)8.8(JUL 29)L 8.2(B ) PT 12.6(JUL 28) INR 0.96(B ) PTT 32.0(JUL 28) Troponin <0.02(JUL 28)<0.02(JUL 28)<0.02(JUL 28) Total CK 43(JUL 28) Objective: I&ORecordInOutBal 07/2323hr Tot 602 0 602 07/2223hr Tot 726 7 720 Lines, Tubes, and Drains: 07/30/2018 22:00 Peripheral Lines: Forearm Right 22 gauge Over the needle catheter 08/02/2018 11:37 SpO2 [id number] 08/01/2018 19:09 Oxygen Therapy ModeRoom air Vital Signs (last 24 hrs) Last Charted Temp Oral97.7 DegF (AUG 02 11:37) Heart Rate [id number] bpm (AUG 02 11:37) Resp Rate 18 BRMIN (AUG 02 11:37) EQL866 mmHg (AUG 02 11:37) DBP74 mmHg (AUG 02 11:37) SbQ540 % (AUG 02:37) Exam: General: not in any distress HEENT: no pallor, anicteric sclera Cardiovascular: regular, no murmur Respiratory: CTA Abdomen: soft, non-tender, +BS Extremities: no edema, no cyanosis Neurologic: Awake, Nonfocal Skin: no breakdown Problems: Asthmatic bronchitis and/or COPD Morbid obesity Diastolic heart failure Plan: Continue duo nebs as per respiratory therapy protocol Complete 5 days of 40 mg p.o. prednisone patient discharged Outpatient pulmonary follow-up [facility] with above [facility]. Zane Vences MD Pulmonary and Critical Care Extracted from: Title: History and Physical Author: Gladis Hurst MD Date: 07/28/18 Patient is a 42-year-old femalehypertension, past PE,presents with complaints of shortness of breathover the last 24-48 hours. 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 Duo nebs every 6,steroidsevery 12, advair and montelukast. Antitussives as needed for cough. 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 Chronic back pain PT/ OT, [place], morphine for breakthrough pain Heparin 1 to 2 midnights
--- OUTSIDE RECORDS SUMMARY | 2018-11-19 23:01 | XMS REPORT | Summary of Care ---
Author Author [facility] Organization [facility] Address Unknown Phone Unavailable Encounter [facility](ARY) [phone] Date(s): 07/21/17 - 07/22/17 [facility] [address] [place] [address]- [phone] Encounter Diagnosis Dorsalgia, unspecified (Final) - 07/26/17 Chronic obstructive pulmonary disease, unspecified (Final) - Personal history of nicotine dependence (Final) - Fall on same level, unspecified, initial encounter (Final) - Acute back pain (Discharge Diagnosis) - 07/22/17 Discharge Disposition: Home or Self Care Attending Physician: Marcelo Jane MD Vital Signs 1 2 3 Most recent to oldest [Reference Range]: 175.26 cm (07/21/17 8:43 PM) Height 98.4 DegF (07/22/17 12:39 AM) 98.5 DegF (07/21/17 11:00 PM) 98.7 DegF (07/21/17 8:43 PM) Temperature Oral [96.4-99.1 DegF] 110/70 mmHg (07/22/17 12:39 AM) 115/75 mmHg (07/21/17 11:00 PM) 111/73 mmHg (07/21/17 8:43 PM) Blood Pressure [90-140/60-90 mmHg] 16 BRMIN (07/22/17 12:39 AM) 16 BRMIN (07/21/17 11:00 PM) 18 BRMIN (07/21/17 8:43 PM) Respiratory Rate [14-20 BRMIN] 84 bpm (07/22/17 12:39 AM) 90 bpm (07/21/17 11:00 PM) 105 bpm *HI* (07/21/17 8:43 PM) Peripheral Pulse Rate [60-100 bpm] 136.364 kg (07/21/17 8:43 PM) Weight 44.4 m2 (07/21/17 8:43 PM) Body Mass Index Problem List Condition Effective Dates Status Health Status Informant Anemia(Confirmed) Active Ankle Active fracture(Confirmed) Anxiety(Confirmed) Active Asthma(Confirmed) Active Asthma(Confirmed) Resolved Active section(Confirmed) COPD (chronic Resolved obstructive pulmonary disease)(Confirmed) DVT - Deep vein Resolved thrombosis(Confirmed )1 PE - Pulmonary Active embolism(Confirmed) Pneumonia(Confirmed) Resolved Schizophrenia(Confir Active med) Sleep Active apnea(Confirmed) 1lung Allergies, Adverse Reactions, Alerts Substance Reaction Severity Status NKDA Active HYDROcodone Active Medications Flexeril 10 mg oral tablet 10 mg, PO, TID, PRN Muscle Spasm, X 10 day, # 30 tab, 0 Refill(s) Start Date: 07/22/17 Stop Date: 08/01/17 Status: Completed ketOROLAC 60 mg, Route: IM, Drug form: INJ, ONCE, Dosing Weight 136.364, kg, Priority: STA T, Start date: 07/21/17 21:54:00 [employer], Stop date: 07/21/17 21:54:00 [employer] CE[employer] LE[employer]ER Start Date: 07/21/17 Stop Date: 07/21/17 Status: Completed Naprosyn 500 mg oral tablet 500 mg=1 tab, PO, BID, X 7 day, # 14 tab, 0 Refill(s) Start Date: 07/22/17 Stop Date: 07/29/17 Status: Completed Valium 10 mg, Route: PO, ONCE, Dosing Weight 136.364, kg, Priority: STAT, Start date: 0 07/21/17 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:00 PRODUCTION CELL LEADER, Stop date: 07/21/17 21:54:00 PRODUCTION CELL LEADER Start Date: 07/21/17 Stop Date: 07/21/17 Status: Completed Results URINE CHEM Most recent to 1 oldest [Reference Range]: U Preg [Negative] Negative (07/21/17 10:58 PM) URINE AND STOOL Most recent to 1 oldest [Reference Range]: UA Turbidity [Clear] Marked *ABN* (07/21/17 10:58 PM) UA Color [Yellow] Yellow *NA* (07/21/17 10:58 PM) UA pH [5.0-8.0] 7.0 (07/21/17 10:58 PM) UA Spec Grav 1.019 [<=1.030] (07/21/17 10:58 PM) UA Glucose [Negative Negative mg/dL mg/dL] *NA* (07/21/17 10:58 PM) UA Blood [Negative] Negative (07/21/17 10:58 PM) UA Ketones [Negative Negative mg/dL mg/dL] *NA* (07/21/17 10:58 PM) UA Protein [Negative Negative mg/dL mg/dL] (07/21/17 10:58 PM) UA Urobilinogen <=1.0 mg/dL [0.1-1.0 mg/dL] *NA* (07/21/17 10:58 PM) UA Bili [Negative] Negative *NA* (07/21/17 10:58 PM) UA Leuk Est Trace [Negative] *ABN* (07/21/17 10:58 PM) UA Nitrite Negative [Negative] (07/21/17 10:58 PM) UA WBC [0-5 /HPF] 6 /HPF *HI* (07/21/17 10:58 PM) UA RBC [0-2 /HPF] 2 /HPF (07/21/17 10:58 PM) UA Sq Epi [Few /LPF] Many /LPF *ABN* (07/21/17 10:58 PM) UA Amorph Anita [None Few /HPF Seen /HPF] *NA* (07/21/17 10:58 PM) Immunizations Not Given Vaccine Date Status [...] use per day: 10; 1 entered on: 09/29/17 1smoking cessation education given, verbalized understanding Assessment and Plan No data available for this section
--- OUTSIDE RECORDS SUMMARY | 2018-11-19 23:01 | XMS REPORT | Summary of Care ---
Author Author [facility] Organization [facility] Address Unknown Phone Unavailable Encounter [facility](ARY) [phone] Date(s): 02/10/18 - 02/10/18 [facility] [address] [place] [address]- Encounter Diagnosis COPD exacerbation (Discharge Diagnosis) - 02/10/18 Chronic obstructive pulmonary disease with (acute) exacerbation (Final) - 02/17/18 Nicotine dependence, cigarettes, uncomplicated (Final) - Tobacco abuse counseling (Final) - Schizophrenia, unspecified (Final) - Personal history of other venous thrombosis and embolism (Final) - Allergy status to narcotic agent status (Final) - Allergy status to analgesic agent status (Final) - Discharge Disposition: Home or Self Care Attending Physician: Ortiz Lee MD Vital Signs 1 2 3 Most recent to oldest [Reference Range]: 97.9 DegF (02/10/18 4:47 PM) Temperature Oral [96.4-99.1 DegF] 112/63 mmHg (02/10/18 8:10 PM) 101/70 mmHg (02/10/18 6:33 PM) 130/90 mmHg (02/10/18 4:47 PM) Blood Pressure [90-140/60-90 mmHg] 17 BRMIN (02/10/18 8:10 PM) 18 BRMIN (02/10/18 6:33 PM) 22 BRMIN *HI* (02/10/18 4:47 PM) Respiratory Rate [14-20 BRMIN] 94 bpm (02/10/18 4:47 PM) Peripheral Pulse Rate [60-100 bpm] 148.182 kg (02/10/18 4:47 PM) Weight Problem List Condition Effective Dates Status Health Status Informant Anemia(Confirmed) Active Ankle Active fracture(Confirmed) Anxiety(Confirmed) Active Asthma(Confirmed) Active Asthma(Confirmed) Resolved Active section(Confirmed) COPD (chronic Resolved obstructive pulmonary disease)(Confirmed) DVT - Deep vein Resolved thrombosis(Confirmed )1 PE - Pulmonary Active embolism(Confirmed) Pneumonia(Confirmed) Resolved Schizophrenia(Confir Active med) Sleep Active apnea(Confirmed) 1lung Allergies, Adverse Reactions, Alerts Substance Reaction Severity Status NKDA Active Medications Azithromycin 3 Day Dose Pack 500 mg oral tablet 500 mg=1 tab, PO, Daily, X 3 day, # 3 tab, 0 Refill(s) Start Date: 02/10/18 Stop Date: 02/13/18 Status: Completed methylPREDNISolone SODium SUCCinate 125 mg, Route: IVP, ONCE, Dosing Weight 148.182, kg, Priority: STAT, Start date: 02/10/18 18:47:00 CDT, Stop date: 02/10/18 18:47:00 CDT Start Date: 02/10/18 Stop Date: 02/10/18 Status: Completed morphine Sulfate 4 mg, 1 mL, Route: IVP, Drug form: SOLN, ONCE, Dosing Weight 148.182, kg, Priori ty: STAT, Start date: 02/10/18 17:47:00 CDT, Stop date: 02/10/18 17:47:00 CDT Notes: (Same as:MORPhine Sulfate) Start Date: 02/10/18 Stop Date: 02/10/18 Status: Completed predniSONE 20 mg oral tablet 60 mg=3 tab, PO, Daily, Take 3 tablets for 60 mg dose, X 2 day, # 6 tab, 0 Refil l(s) Start Date: 02/11/18 Stop Date: 02/13/18 Status: Completed Saline Flush 0.9% 10 mL, Route: IVP, Drug Form: INJ, Dosing Weight 145.455, kg, PRN, PRN Line Flus h, Start date: 02/10/18 16:50:00 CDT, Duration: 30 day, Stop date: 03/12/18 16:4 9:00 CDT Notes: (Same as: BD Posiflush) Start Date: 02/10/18 Stop Date: 02/10/18 Status: Discontinued Zofran ODT 4 mg, 1 tab, Route: PO, Drug form: TABDIS, ONCE, Dosing Weight 148.182, kg, Prio rity: STAT, Start date: 02/10/18 17:47:00 CDT, Stop date: 02/10/18 17:47:00 CDT Notes: (Same as: Forrest MCNAMARACarla) Start Date: 02/10/18 Stop Date: 02/10/18 Status: Completed Results ELECTROLYTES Most recent to 1 oldest [Reference Range]: Sodium Lvl [135-145 143 mEq/L mEq/L] (02/10/18 5:18 PM) Potassium Lvl 3.5 mEq/L [3.5-5.1 mEq/L] (02/10/18 5:18 PM) Chloride Lvl [95-109 108 mEq/L mEq/L] (02/10/18 5:18 PM) CO2 [24-32 mEq/L] 31 mEq/L (02/10/18 5:18 PM) AGAP [10.0-20.0 7.5 mEq/L mEq/L] *LOW* (02/10/18 5:18 PM) CHEM PANEL Most recent to 1 oldest [Reference Range]: Creatinine Lvl 1.05 mg/dL [0.50-1.40 mg/dL] (02/10/18 5:18 PM) eGFR 66 mL/min/1.73m2 1 *NA* (02/10/18 5:18 PM) BUN [7-22 mg/dL] 13 mg/dL (02/10/18 5:18 PM) B/C Ratio [6-25] 12 (02/10/18 5:18 PM) Glucose Lvl [70-99 93 mg/dL mg/dL] (02/10/18 5:18 PM) Total Protein 7.5 g/dL [6.4-8.4 g/dL] (02/10/18 5:18 PM) Albumin Lvl [3.5-5.0 3.3 g/dL g/dL] *LOW* (02/10/18 5:18 PM) Globulin [2.7-4.2 4.2 g/dL g/dL] (02/10/18 5:18 PM) A/G Ratio [0.7-1.6] 0.8 (02/10/18 5:18 PM) Calcium Lvl 9.7 mg/dL [8.5-10.5 mg/dL] (02/10/18 5:18 PM) ALT [0-65 unit/L] 18 unit/L (02/10/18 5:18 PM) AST [0-37 unit/L] 12 unit/L (02/10/18 5:18 PM) Alk Phos [39-136 97 unit/L unit/L] (02/10/18 5:18 PM) Bili Total [0.2-1.3 <0.1 mg/dL mg/dL] *LOW* (02/10/18 5:18 PM) 1Result Comment: The eGFR is calculated [...] Most recent to 1 oldest [Reference Range]: Total CK [12-191 38 unit/L unit/L] (02/10/18 5:18 PM) Troponin-I <0.02 ng/mL [0.00-0.40 ng/mL] (02/10/18 5:18 PM) BNP [<=100 pg/mL] 19 pg/mL (02/10/18 5:18 PM) ENDOCRINOLOGY Most recent to 1 oldest [Reference Range]: S Preg [Negative] Negative *NA* (02/10/18 5:18 PM) HEMATOLOGY Most recent to 1 oldest [Reference Range]: WBC [3.7-10.4 K/CMM] 11.0 K/CMM *HI* (02/10/18 5:18 PM) RBC [4.20-5.40 4.77 M/CMM M/CMM] (02/10/18 5:18 PM) Hgb [12.0-16.0 g/dL] 12.0 g/dL (02/10/18 5:18 PM) Hct [36.0-48.0 %] 36.2 % (02/10/18 5:18 PM) MCV [80.0-98.0 fL] 76.0 fL *LOW* (02/10/18 5:18 PM) MCH [27.0-31.0 pg] 25.3 pg *LOW* (02/10/18:18 PM) MCHC [32.0-36.0 33.3 g/dL g/dL] (02/10/18 5:18 PM) RDW [11.5-14.5 %] 16.0 % *HI* (02/10/18:18 PM) MPV [7.4-10.4 fL] 8.1 fL (02/10/18 5:18 PM) Platelet [133-450 292 K/CMM K/CMM] (02/10/18 5:18 PM) Segs [45.0-75.0 %] 64.6 % (02/10/18 5:18 PM) Lymphocytes 28.1 % [20.0-40.0 %] (02/10/18 5:18 PM) Monocytes [2.0-12.0 4.2 % %] (02/10/18 5:18 PM) Eosinophils [0.0-4.0 1.9 % %] (02/10/18 5:18 PM) Basophils [0.0-1.0 1.2 % %] *HI* (02/10/18 5:18 PM) Neutrophils # 7.1 K/CMM [1.5-8.1 K/CMM] (02/10/18 5:18 PM) Lymphocytes # 3.1 K/CMM [1.0-5.5 K/CMM] (02/10/18 5:18 PM) Monocytes # [0.0-0.8 0.5 K/CMM K/CMM] (02/10/18 5:18 PM) Eosinophils # 0.2 K/CMM [0.0-0.5 K/CMM] (02/10/18 5:18 PM) Basophils # [0.0-0.2 0.1 K/CMM K/CMM] (02/10/18 5:18 PM) Microcyte [None 1+ Seen] *ABN* (02/10/18 5:18 PM) D-Dimer 0.35 ug/mL FEU *NA* (02/10/18 7:36 PM) Immunizations Not Given Vaccine Date Status [...]
--- OUTSIDE RECORDS SUMMARY | 2018-11-19 23:01 | XMS REPORT | Summary of Care ---
Author Author [facility] Organization [facility] Address Unknown Phone Unavailable Encounter MARGARET Olson(ARY) [id number] Date(s): 03/12/17 - 03/15/[address] [facility] [address] [place] [address]- [phone] Final: Pneumonia, unspecified organism Discharge Disposition: Home or Self Care Attending Physician: Vilma Garibay MD Admitting Physician: Vilma Garibay MD Vital Signs 1 2 3 Most recent to oldest [Reference Range]: 175.26 cm (03/12/17 8:32 PM) 172.72 cm (03/12/17 3:26 PM) Height 98.0 DegF (03/15/17 11:05 AM) 98.8 DegF (03/15/17 7:56 AM) 99.3 DegF *HI* (03/15/17 3:06 AM) Temperature Oral [96.4-99.1 DegF] 124/79 mmHg (03/15/17 11:05 AM) 116/77 mmHg (03/15/17 7:56 AM) 118/65 mmHg (03/15/17 3:06 AM) Blood Pressure [90-140/60-90 mmHg] 16 BRMIN (03/15/17 11:05 AM) 16 BRMIN (03/15/17 8:41 AM) 16 BRMIN (03/15/17 7:56 AM) Respiratory Rate [14-20 BRMIN] 97 bpm (03/15/17 11:05 AM) 77 bpm (03/15/17 7:56 AM) 94 bpm (03/15/17 3:06 AM) Peripheral Pulse Rate [60-100 bpm] 153.665 kg (03/12/17 8:32 PM) 125 kg (03/12/17 3:26 PM) Weight 50.03 m2 (03/12/17 8:32 PM) 41.9 m2 (03/12/17 3:26 PM) Body Mass Index Problem List Condition [...] Substance Reaction Severity Status NKDA Active Medications WAIT for vancomycin trough draw prior to giving next dose WAIT for vancomycin trough draw prior to giving next dose, reminder, Drug form : MISC, Route: MISC, ONCE, 03/14/17 5:30:00 CDT, Stop date: 03/14/17 5:30:00 CDT Start Date: 03/14/17 Stop Date: 03/14/17 Status: Completed WAIT for vancomycin trough draw prior to giving next dose WAIT for vancomycin trough draw prior to giving next dose, reminder, Drug form : MISC, Route: MISC, ONCE, 03/14/17 7:30:00 CDT, Stop date: 03/14/17 7:30:00 CDT Start Date: 03/14/17 Stop Date: 03/14/17 Status: Completed acetaminophen 650 mg, 2 tab, Route: PO, Drug form: TAB, Q4H, Dosing Weight 125, kg, PRN Pain 1 -3/Temp > 100.4 F, Start date: 03/12/17 20:29:00 CDT, Duration: 30 day, Stop date: 04/11/17 20:28:00 CDT Notes: Do not exceed 4 gm/day. (Same as: Tylenol) Start Date: 03/12/17 Stop Date: 03/15/17 Status: Discontinued acetaminophen-hydrocodone 325 mg-5 mg oral tablet 1 tab, Route: PO, Dosing Weight 125, kg, Q4H, PRN Pain Score 4-6, Start date: 20:29:00 CDT, Duration: 30 day, Stop date: 04/11/17 20:28:00 CDT Start Date: 03/12/17 Stop Date: 03/12/17 Status: Discontinued Advair Diskus 500 mcg-50 mcg inhalation powder 1 puff, INHALATION, BID, 0 Refill(s) Start Date: 03/12/17 Status: Ordered Advair Diskus 500 mcg-50 mcg inhalation powder 1 puff, Route: INHALATION, Drug Form: AERO, Dosing Weight 125, kg, BID, Start da te: 03/13/17 9:00:00 CDT, Duration: 30 day, Stop date: 04/11/17 17:00:00 CDT Start Date: 03/13/17 Stop Date: 03/12/17 Status: Deleted Benadryl 25 mg, 0.5 mL, Route: IV, Drug form: INJ, Q6H, Dosing Weight 153.665, kg, PRN as needed for allergy symptoms, Start date: 03/12/17 23:37:00 CDT, Duration: 30 da y, Stop date: 04/11/17 23:36:00 CDT Notes: (Same as: Benadryl) Start Date: 03/12/17 Stop Date: 03/15/17 Status: Discontinued benzonatate 100 mg oral capsule 100 mg=1 cap, PO, TID, PRN Cough, # 20 cap, 0 Refill(s) Start Date: 03/15/17 Status: Ordered budesonide-formoterol 160 mcg-4.5 mcg/inh inhalation aerosol with adapter 2 inhalation, Route: INHALATION, Drug Form: AERO/A, BID, Start date: 03/13/17 9: 00:00 CDT, Duration: 30 day, Stop date: 04/11/17 17:00:00 CDT Notes: (Same as: Symbicort)WASTE: Aerosol - Return to Pharmacy Start Date: 03/13/17 Stop Date: 03/15/17 Status: Discontinued Colace 100 mg oral capsule 200 mg, 2 cap, Route: PO, Drug form: CAP, ONCE, Dosing Weight 153.665, kg, Start date: 03/15/17 10:55:00 CDT, Stop date: 03/15/17 10:55:00 CDT Notes: (Same as: Colace) (Do Not Crush) Start Date: 03/15/17 Stop Date: 03/15/17 Status: Completed docusate 100 mg, 1 cap, Route: PO, Drug form: CAP, BID, Dosing Weight 125, kg, Start date : 03/13/17 9:00:00 CDT, Duration: 30 day, Stop date: 04/11/17 17:00:00 CDT Notes: (Same as: Colace) (Do Not Crush) Start Date: 03/13/17 Stop Date: 03/15/17 Status: Discontinued DuoNeb inhalation solution 3 mL, Route: NEB, Drug Form: SOLN, Dosing Weight 125, kg, RQ6H, Start date: 09/24 2:00:00 CDT, Duration: 30 day, Stop date: 04/11/17 20:00:00 CDT Notes: (Same as: Duoneb) Start Date: 03/13/17 Stop Date: 03/15/17 Status: Discontinued heparin 7,500 unit, 1.5 mL, Route: SUB-Q, Drug form: INJ, Q8H, Dosing Weight 125, kg, Co nsider for obese patients, Start date: 03/13/17 0:00:00 CDT, Duration: 30 day, S top date: 04/11/17 16:00:00 CDT Notes: porcine heparin Start Date: 03/13/17 Stop Date: 03/13/17 Status: Discontinued ibuprofen 800 mg oral tablet 800 mg=1 tab, PO, BID, PRN Pain Score 1-5, 0 Refill(s) Start Date: 03/12/17 Status: Ordered Levaquin 750 mg oral tablet 750 mg=1 tab, PO, Q24H, X 10 day, # 10 tab, 0 Refill(s) Start Date: 03/15/17 Stop Date: 03/25/17 Status: Ordered lidocaine topical patch (5% film) 1 patch, Route: TOP, Daily, Drug form: FILM, Start date: 03/14/17 11:00:00 CDT, Duration: 30 day, Stop date: 04/13/17 9:00:00 CDT Start Date: 03/14/17 Stop Date: 03/15/17 Status: Discontinued Lovenox 40 mg, 0.4 mL, Route: SUB-Q, Drug form: INJ, Daily, Dosing Weight 153.665, kg, S tart date: 03/13/17 17:00:00 CDT, Duration: 30 day, Stop date: 04/11/17 17:00:00 CDT Notes: (Same as: Lovenox) Start Date: 03/13/17 Stop Date: 03/14/17 Status: Discontinued magnesium citrate 1.745 g/30 mL oral liquid 300 ml, Route: PO, Drug Form: LIQ, Dosing Weight 153.665, kg, ONCE, Start date: 03/15/17 10:55:00 CDT, Stop date: 03/15/17 10:55:00 CDT Notes: (Same as: Citrate of Magnesia)Concentration: 1.745 gm / 30 mL Start Date: 03/15/17 Stop Date: 03/15/17 Status: Completed morphine Sulfate 2 mg, 1 mL, Route: IVP, Drug form: SOLN, Q4H, Dosing Weight 125, kg, PRN Pain Sc ore 7-10, Start date: 03/12/17 20:29:00 CDT, Duration: 30 day, Stop date: 20:28:00 CDT Start Date: 03/12/17 Stop Date: 03/15/17 Status: Discontinued morphine Sulfate 4 mg, 1 mL, Route: IVP, Drug form: SOLN, ONCE, Dosing Weight 125, kg, Priority: STAT, Start date: 03/12/17 15:57:00 CDT, Stop date: 03/12/17 15:57:00 CDT Notes: (Same as:MORPhine Sulfate) Start Date: 03/12/17 Stop Date: 03/12/17 Status: Completed naproxen sodium 550 mg oral tablet 550 mg=1 tab, PO, Daily, 0 Refill(s) Start Date: 03/12/17 Status: Ordered [place] 10/325 oral tablet 1 tab, Route: PO, Drug Form: TAB, Dosing Weight 125, kg, Q6H, PRN Pain Score 4-6 , Start date: 03/12/17 20:30:00 CDT, Duration: 30 day, Stop date: 04/11/17 20:29 :00 CDT Notes: Do not exceed 4gm/day of acetaminophen. (Same as: [place] 325/10) Start Date: 03/12/17 Stop Date: 03/15/17 Status: Discontinued ondansetron 4 mg, 2 mL, Route: IVP, Drug form: INJ, Q6H, Dosing Weight 125, kg, PRN Nausea & Vomiting, Start date: 03/12/17 20:29:00 CDT, Duration: 30 day, Stop date: 04/11 20:28:00 CDT Notes: (Same as: Zofran) MEDICATION WASTE Product Size: 4 mgProduct Was carmina: ___ mg Start Date: 03/12/17 Stop Date: 03/15/17 Status: Discontinued ondansetron 4 mg, 2 mL, Route: IVP, Drug form: INJ, ONCE, Dosing Weight 125, kg, Priority: S TAT, Start date: 03/12/17 15:57:00 CDT, Stop date: 03/12/17 15:57:00 CDT Notes: (Same as: Zofran) MEDICATION WASTE Product Size: 4 mgProduct Was carmina: ___ mg Start Date: 03/12/17 Stop Date: 03/12/17 Status: Completed piperacillin-tazobactam + sodium chloride 0.9% INJ 100 mL 3.375 gm, Route: IVPB, ONCE, Dosing Weight 125, kg, Priority: STAT, Start date: 03/12/17 17:25:00 CDT, Duration: 1 doses or times, Stop date: 03/12/17 17:25:00 CDT, ABX Indication: Bacteremia Notes: (Same as: Zosyn)Dosing based on Piperacillin component MEDICATION WA JOSE Product Size: 3375 mgProduct Wasted: ___ mg Start Date: 03/12/17 Stop Date: 03/12/17 Status: Completed pneumococcal 23-valent vaccine 0.5 mL, Route: IM, Drug Form: INJ, Daily, Start date: 03/13/17 9:00:00 CDT, Dura tion: 1 doses or times, Stop date: 03/13/17 9:00:00 CDT Notes: (Same as: Pneumovax 23) Refrigerate Start Date: 03/13/17 Stop Date: 03/13/17 Status: Completed potassium chloride 20 mEq oral tablet, extended release 40 mEq, 2 tab, Route: PO, Drug form: ERTAB, ONCE, Dosing Weight 153.665, kg, Sta rt date: 03/13/17 16:35:00 CDT, Stop date: 03/13/17 16:35:00 CDT Notes: (Same as: K-Dur 20)"Do Not Crush" With food and full glass of water Start Date: 03/13/17 Stop Date: 03/13/17 Status: Completed remove patch Route: TOP, Bedtime, Drug form: ERFILM, Start date: 03/14/17 21:00:00 CDT, Durat ion: 30 day, Stop date: 04/12/17 21:00:00 CDT Notes: Remove patch 12 hours after application each day. Start Date: 03/14/17 Stop Date: 03/15/17 Status: Discontinued senna 8.6 mg oral tablet 8.6 mg, 1 tab, Route: PO, Drug Form: TAB, Dosing Weight 153.665, kg, BID, PRN Co nstipation, Start date: 03/12/17 20:32:00 CDT, Duration: 30 day, Stop date: 07/27 20:31:00 CDT Notes: (Same as: Senokot) Start Date: 03/12/17 Stop Date: 03/15/17 Status: Discontinued Singulair 10 mg, 1 tab, Route: PO, Drug form: TAB, Bedtime, Dosing Weight 125, kg, Start d ate: 03/12/17 21:00:00 CDT, Duration: 30 day, Stop date: 04/10/17 21:00:00 CDT Notes: (Same as:Singulair) Start Date: 03/12/17 Stop Date: 03/15/17 Status: Discontinued Sodium Chloride 0.9% (Bolus) IV 1,000 mL, 1000 ml/hr, Infuse Over: 1 hr, Route: IV, 1,000, Drug form: INJ, ONCE, Priority: STAT, Dosing Weight 125 kg, Start date: 03/12/17 18:52:00 CDT, Durati on: 1 doses or times, Stop date: 03/12/17 18:52:00 CDT Start Date: 03/12/17 Stop Date: 03/12/17 Status: Completed Tessalon Perles 100 mg, 1 cap, Route: PO, Drug form: CAP, TID, Dosing Weight 153.665, kg, PRN Co ugh, Start date: 03/12/17 20:32:00 CDT, Duration: 30 day, Stop date: 04/11/17 20 :31:00 CDT Notes: (Same As: Ranjith Fong)"Do Not Crush" Start Date: 03/12/17 Stop Date: 03/15/17 Status: Discontinued trazodone 50 mg, 1 tab, Route: PO, Drug form: TAB, Bedtime, Dosing Weight 153.665, kg, PRN Insomnia, Start date: 03/12/17 20:33:00 CDT, Duration: 30 day, Stop date: 04/11 20:32:00 CDT Notes: (Same As: Bradley) Start Date: 03/12/17 Stop Date: 03/15/17 Status: Discontinued vancomycin 1.25 gm, 250 mL, Route: IVPB, Drug form: INJ, ABXQ8H, Start date: 03/13/17 5:00: 00 CDT, Duration: 30 day, Stop date: 04/12/17 0:00:00 CDT, ABX Indication: Pneum onia Notes: TIME CRITICAL MEDICATIONSame as: Vancocin-NS (premixed)Infusion rate< 1000 mg: infuse over 1 [id number] - 1500 mg: infuse over 1.5 [id number] - 2000 mg: infuse over 2 hours> 2001 mg: infuse over 2.5 hours Start Date: 03/13/17 Stop Date: 03/15/17 Status: Discontinued vancomycin 1.5 gm, 250 mL, Route: IVPB, Drug form: INJ, ONCE, Start date: 03/12/17 21:00:00 CDT, Stop date: 03/12/17 21:00:00 CDT, ABX Indication: Pneumonia Notes: TIME CRITICAL MEDICATIONSame as: Vancocin-NS (premixed)Infusion rate< 1000 mg: infuse over 1 [id number] - 1500 mg: infuse over 1.5 [id number] - 2000 mg: infuse over 2 hours> 2001 mg: infuse over 2.5 hours Start Date: 03/12/17 Stop Date: 03/12/17 Status: Completed vancomycin + sodium chloride 0.9% INJ 250 mL 1,000 mg, Route: IVPB, ONCE, Dosing Weight 125, kg, Priority: STAT, Start date: 03/12/17 17:25:00 CDT, Duration: 1 doses or times, Stop date: 03/12/17 17:25:00 CDT, ABX Indication: Bacteremia Notes: TIME CRITICAL MEDICATION(Same As: Vancocin)Infusion rate< 1000 mg: infuse over 1 [id number] - 1500 mg: infuse over 1.5 [id number] - 2000 mg: infuse over 2 hours> 2001 mg: infuse over 2.5 hours MEDICATION WASTE Product Size: 1000 mgProduct Wasted: ___ mg Start Date: 03/12/17 Stop Date: 03/12/17 Status: Completed Vancomycin Pharmacy Dosing 1 ea, Route: MISC, ONCALL, Dosing Weight 125, kg, Start date: 03/12/17 21:00:00 CDT, day, Stop date: 03/12/17 21:00:00 CDT, Pharmacy to dose, ABX Indication: Pn eumonia Start Date: 03/12/17 Stop Date: 03/12/17 Status: Deleted Zosyn + sodium chloride 0.9% INJ 100 mL 3.375 gm, Route: IVPB, ABXQ8H, Dosing Weight 125, kg, Start date: 03/13/17 2:00: 00 CDT, Duration: 5 day, Stop date: 03/17/17 18:00:00 CDT, ABX Indication: Pneum onia Notes: (Same as: Zosyn)Dosing based on Piperacillin component MEDICATION WA JOSE Product Size: 3375 mgProduct Wasted: ___ mg Start Date: 03/13/17 Stop Date: 03/15/17 Status: Discontinued Results ELECTROLYTES 1 2 3 Most recent to oldest [Reference Range]: 140 mEq/L (03/13/17 4:59 AM) 141 mEq/L (03/12/17 4:05 PM) 140 mEq/L (03/12/17 4:01 PM) Sodium Lvl [135-145 mEq/L] 3.3 mEq/L *LOW* (03/13/17 4:59 AM) 3.9 mEq/L (03/12/17 4:05 PM) 3.9 mEq/L (03/12/17 4:01 PM) Potassium Lvl [3.5-5.1 mEq/L] 104 mEq/L (03/13/17 4:59 AM) 107 mEq/L (03/12/17 4:05 PM) 106 mEq/L (03/12/17 4:01 PM) Chloride Lvl [95-109 mEq/L] 25 mEq/L (03/13/17 4:59 AM) 26 mEq/L (03/12/17 4:05 PM) 25 mEq/L (03/12/17 4:01 PM) CO2 [24-32 mEq/L] 14.3 mEq/L (03/13/17 4:59 AM) 11.9 mEq/L (03/12/17 4:05 PM) 12.9 mEq/L (03/12/17:01 PM) AGAP [10.0-20.0 mEq/L] CHEM PANEL 1 2 3 Most recent to oldest [Reference Range]: 0.83 mg/dL (03/13/17 4:59 AM) 0.91 mg/dL (03/12/17 4:05 PM) 0.94 mg/dL (03/12/17 4:01 PM) Creatinine Lvl [0.50-1.40 mg/dL] 88 mL/min/1.73m2 1 *NA* (03/13/17 4:59 AM) 79 mL/min/1.73m2 2 *NA* (03/12/17 4:05 PM) 76 mL/min/1.73m2 3 *NA* (03/12/17 4:01 PM) eGFR 11 mg/dL (03/13/17 4:59 AM) 11 mg/dL (03/12/17 4:05 PM) 11 mg/dL (03/12/17 4:01 PM) BUN [7-22 mg/dL] 12 (03/12/17 4:05 PM) 12 (03/12/17 4:01 PM) B/C Ratio [6-25] 139 mg/dL *HI* (03/13/17 4:59 AM) 102 mg/dL *HI* (03/12/17 4:05 PM) 102 mg/dL *HI* (03/12/17 4:01 PM) Glucose Lvl [70-99 mg/dL] 7.5 g/dL (03/12/17 4:05 PM) 7.7 g/dL (03/12/17 4:01 PM) Total Protein [6.4-8.4 g/dL] 3.3 g/dL *LOW* (03/12/17 4:05 PM) 3.3 g/dL *LOW* (03/12/17 4:01 PM) Albumin Lvl [3.5-5.0 g/dL] 4.2 g/dL (03/12/17 4:05 PM) 4.4 g/dL *HI* (03/12/17 4:01 PM) Globulin [2.7-4.2 g/dL] 0.8 (03/12/17 4:05 PM) 0.8 (03/12/17 4:01 PM) A/G Ratio [0.7-1.6] 8.0 mg/dL *LOW* (03/13/17 4:59 AM) 8.7 mg/dL (03/12/17 4:05 PM) 8.9 mg/dL (03/12/17 4:01 PM) Calcium Lvl [8.5-10.5 mg/dL] 17 unit/L (03/12/17 4:05 PM) 20 unit/L (03/12/17 4:01 PM) ALT [0-65 unit/L] 15 unit/L (03/12/17 4:05 PM) 14 unit/L (03/12/17 4:01 PM) AST [0-37 unit/L] 109 unit/L (03/12/17 4:05 PM) 110 unit/L (03/12/17 4:01 PM) Alk Phos [39-136 unit/L] 0.4 mg/dL (03/12/17 4:05 PM) 0.4 mg/dL (03/12/17 4:01 PM) Bili Total [0.2-1.3 mg/dL] 91 unit/L (03/12/17 4:01 PM) Lipase Lvl [73-393 unit/L] 1Result Comment: The eGFR is calculated using [...] be mul tiplied by the estimated BMI. TOXICOLOGY 1 2 3 Most recent to oldest [Reference Range]: 0800 *NA* (03/14/17 7:16 AM) 06:00 *NA* (03/14/17 4:56 AM) Miladis Tr TND 17.6 ug/ml *NA* (03/14/17 7:16 AM) 22.1 ug/ml *NA* (03/14/17 4:56 AM) Miladis Tr ENDOCRINOLOGY 1 2 3 Most recent to oldest [Reference Range]: Negative *NA* (03/12/17 4:01 PM) S Preg [Negative] URINE CHEM 1 2 3 Most recent to oldest [Reference Range]: Negative (03/12/17 4:14 PM) U Preg [Negative] URINE AND STOOL 1 2 3 Most recent to oldest [Reference Range]: Slight *ABN* (03/12/17 4:14 PM) UA Turbidity [Clear] Ltyellow *NA* (03/12/17 4:14 PM) UA Color 5.0 (03/12/17 4:14 PM) UA pH [5.0-8.0] 1.016 (03/12/17 4:14 PM) UA Spec Grav [<=1.030] Negative mg/dL *NA* (03/12/17 4:14 PM) UA Glucose [Negative mg/dL] Moderate *ABN* (03/12/17 4:14 PM) UA Blood [Negative] Negative mg/dL *NA* (03/12/17 4:14 PM) UA Ketones [Negative mg/dL] Negative mg/dL (03/12/17 4:14 PM) UA Protein [Negative mg/dL] <=1.0 mg/dL *NA* (03/12/17 4:14 PM) UA Urobilinogen [0.1-1.0 mg/dL] Negative *NA* (03/12/17 4:14 PM) UA Bili [Negative] Moderate *ABN* (03/12/17 4:14 PM) UA Leuk Est [Negative] Negative (03/12/17 4:14 PM) UA Nitrite [Negative] 3 /HPF (03/12/17 4:14 PM) UA WBC [0-5 /HPF] 3 /HPF *HI* (03/12/17 4:14 PM) UA RBC [0-2 /HPF] Occasional /HPF *NA* (03/12/17 4:14 PM) UA Bacteria [None Seen /HPF] Few /LPF *NA* (03/12/17 4:14 PM) UA Sq Epi [Few /LPF] HEMATOLOGY 1 2 3 Most recent to oldest [Reference Range]: 10.7 K/CMM *HI* (03/14/17 4:56 AM) 13.5 K/CMM *HI* (03/13/17 4:59 AM) 19.5 K/CMM *HI* (03/12/17 4:01 PM) WBC [3.7-10.4 K/CMM] 4.20 M/CMM (03/14/17 4:56 AM) 4.39 M/CMM (03/13/17 4:59 AM) 5.06 M/CMM (03/12/17 4:01 PM) RBC [4.20-5.40 M/CMM] 11.1 g/dL *LOW* (03/14/17 4:56 AM) 11.4 g/dL *LOW* (03/13/17 4:59 AM) 13.0 g/dL (03/12/17 4:01 PM) Hgb [12.0-16.0 g/dL] 32.8 % *LOW* (03/14/17 4:56 AM) 33.8 % *LOW* (03/13/17 4:59 AM) 39.1 % (03/12/17 4:01 PM) Hct [36.0-48.0 %] 78.2 fL *LOW* (03/14/17 4:56 AM) 77.1 fL *LOW* (03/13/17 4:59 AM) 77.2 fL *LOW* (03/12/17 4:01 PM) MCV [80.0-98.0 fL] 26.4 pg *LOW* (03/14/17 4:56 AM) 26.0 pg *LOW* (03/13/17 4:59 AM) 25.6 pg *LOW* (03/12/17 4:01 PM) MCH [27.0-31.0 pg] 33.7 g/dL (03/14/17 4:56 AM) 33.7 g/dL (03/13/17 4:59 AM) 33.2 g/dL (03/12/17 4:01 PM) MCHC [32.0-36.0 g/dL] 15.5 % *HI* (03/14/17 4:56 AM) 15.6 % *HI* (03/13/17 4:59 AM) 15.4 % *HI* (03/12/17 4:01 PM) RDW [11.5-14.5 %] 262 K/CMM (03/14/17 4:56 AM) 285 K/CMM (03/13/17 4:59 AM) 302 K/CMM (03/12/17 4:01 PM) Platelet [133-450 K/CMM] 8.3 fL (03/14/17 4:56 AM) 8.1 fL (03/13/17 4:59 AM) 8.2 fL (03/12/17 4:01 PM) MPV [7.4-10.4 fL] 66.9 % (03/13/17 4:59 AM) 87.0 % *HI* (03/12/17 4:01 PM) Segs [45.0-75.0 %] 27.6 % (03/13/17 4:59 AM) 7.3 % *LOW* (03/12/17 4:01 PM) Lymphocytes [20.0-40.0 %] 3.7 % (03/13/17 4:59 AM) 4.7 % (03/12/17 4:01 PM) Monocytes [2.0-12.0 %] 1.3 % (03/13/17 4:59 AM) 0.3 % (03/12/17 4:01 PM) Eosinophils [0.0-4.0 %] 0.5 % (03/13/17 4:59 AM) 0.7 % (03/12/17 4:01 PM) Basophils [0.0-1.0 %] 9.1 K/CMM *HI* (03/13/17 4:59 AM) 16.9 K/CMM *HI* (03/12/17 4:01 PM) Segs-Bands # [1.5-8.1 K/CMM] 3.7 K/CMM (03/13/17 4:59 AM) 1.4 K/CMM (03/12/17 4:01 PM) Lymphocytes # [1.0-5.5 K/CMM] 0.5 K/CMM (03/13/17 4:59 AM) 0.9 K/CMM *HI* (03/12/17 4:01 PM) Monocytes # [0.0-0.8 K/CMM] 0.2 K/CMM (03/13/17 4:59 AM) Eosinophils # [0.0-0.5 K/CMM] 0.1 K/CMM (03/13/17 4:59 AM) 0.1 K/CMM (03/12/17 4:01 PM) Basophils # [0.0-0.2 K/CMM] 1+ *ABN* (03/13/17 4:59 AM) 1+ *ABN* (03/12/17 4:01 PM) Microcyte [None Seen] 13.1 seconds (03/12/17 4:01 PM) PT [12.0-14.7 seconds] 0.97 (03/12/17 4:01 PM) INR [0.85-1.17] 28.5 seconds (03/12/17 4:01 PM) PTT [22.9-35.8 seconds] RAPID 1 2 3 Most recent to oldest [Reference Range]: Negative (03/12/17 5:50 PM) Grp A Strep Scr [Negative] VIRAL - SEROLOGY 1 2 3 Most recent to oldest [Reference Range]: Negative (03/12/17 5:50 PM) Influ A [Negative] Negative (03/12/17 5:50 PM) Influ B [Negative] Immunizations Not Given [...] 365 Days Yes; Reg Smoking Cessation Counseling No1 1smoking cessation education given, verbalized understanding Assessment and Plan Extracted from: Title: Discharge Summary * Author: Vilma Garibay MD Date: 03/15/17 Discharge Information Disposition to home Condition stable Medications: See med reconciliation form Diet: Heart healthy Discharge Plan Follow-up with your PCP in 2-5 days for posthospital follow-up In evaluating worsening symptoms patient was to come back to the ED for further evaluation Discharge summary took greater than 35 minutes Extracted from: Title: Clinical Document Author: Vilma Garibay MD Date: 03/14/17 Progress Note SUBJECTIVE: Patient was doing well with no other complaints. Patient seen and evaluated at bedside. No overnight events. Denies chest pain, nausea, vomiting, diarrhea, headache, lightheadness, abdomen pain or dizziness. OBJECTIVE: VitalsTmp(F)[id number] 03/14 15:[id number]--- 03/14 11:[id number]--- 03/14 10:31 1296--- 03/14 07:[id number]--- 03/14 02:[id number]--- 24 Hr Tmax: 98.5F (36.94c) at 03/13 20:00Vital Signs are the last 5 in the past 48 hours. I&ORecordInOutBal 03/524hr Tot 2844 0 2844 03/424hr Tot 2026 0 2026 Labs (Last four charted values) WBC H 10.7(MAR 14)H 13.5(MAR 13)H 19.5(MAR 12) Hgb L 11.1(MAR 14)L 11.4(MAR 13)13.0(MAR 12) Hct L 32.8(MAR 14)L 33.8(MAR 13)39.1(MAR 12) Plt 262(MAR 14)285(MAR 13)302(MAR 12) Na 140(MAR 13)141(MAR 12)140(MAR 12) K L 3.3(MAR 13)3.9(MAR 12)3.9(MAR 03) CO2 25(MAR 13)26(MAR 12)25(MAR 12) Cl 104(MAR 13)107(MAR 12)106(MAR 12) Cr 0.83(MAR 13)0.91(MAR 12)0.94(MAR 12) BUN 11(MAR 13)11(MAR 12)11(MAR 12) Glucose Random H 139(MAR 13)H 102(MAR 12)H 102(MAR 12) Ca L 8.0(MAR 13)8.7(MAR 12)8.9(MAR 12) PT 13.1(MAR 12) INR 0.97(MAR 12) PTT 28.5(MAR 12) Medications (16) Active Scheduled: (8) albuterol-ipratropium 2.5 mg-0.5 mg/3 ml LYLE 3 mL, NEB, RQ6H Budesonide/Formoterol 160-4.5 microgram 6gm AERO/A inh 2 inhalation, INHALATION, BID docusate sodium 100 mg CAP 100 mg 1 cap, PO, BID lidocaine 5% top patch 1 patch, TOP, Daily lidocaine patch removal remove 1 patch, TOP, Bedtime montelukast 10 mg TAB 10 mg 1 tab, PO, Bedtime piperacillin-tazobactam INJ + sodium chloride 0.9% INJ 100 mL 3.375 gm, IVPB, ABXQ8H vancomycin 1.25 gm / NS 250 ml (Premix) 1.25 gm 250 mL, IVPB, ABXQ8H Continuous: (0) PRN: (8) acetaminophen 325 mg TABLET 650 mg 2 tab, PO, Q4H acetaminophen-hydrocodone 325 mg-10 mg TAB 1 tab, PO, Q6H benzonatate 100 mg CAP 100 mg 1 cap, PO, TID diphenhydrAMINE 50 mg/1 ml INJ 25 mg 0.5 mL, IV, Q6H MORPhine sulfate 2 mg/mL INJ SYR PF 2 mg 1 mL, IVP, Q4H ondansetron 4 mg/2ml INJ VL 4 mg 2 mL, IVP, Q6H senna 8.6 mg TAB 8.6 mg 1 tab, PO, BID trazodone 50 mg TAB 50 mg 1 tab, PO, Bedtime PHYSICAL EXAM: General: NAD, alert and oriented x3 HEENT: normacephalic, atraumatic, PERRLA, EOMI, supple w/ good ROM, normal pharynx Pulm: CTA B/L crackles appreciated, no wheezing no rales CV: +S1, +S2 no m/r/g, RRR, good cap refill, No JVD, no carotid bruits Abd: ND, NTTP, no rebound or guarding, BS+ Skin: intact, warm and dry, no rashes Musculoskeletal: 5/5 strength, normal range of motion, no swollen joints Neuro: alert and oriented x3, CN 2-12 intact Psychiatry: good judgment and insight Extremities: no edema, cyanosis or clubbing : no hawk CT abdomen chest and pelvis with IV contrast: IMPRESSION: 1. Patchy airspace opacities throughout the lungs, concerning for multifocal pneumonia or pneumonitis. 2. No acute osseous abnormality. ASSESSMENT AND PLAN: 1. Multifocal community-acquired pneumonia-IV antibiotics, blood cultures: Pending 03/14: Continue with IV antibiotics, blood cultures no growth to date 2. Possible UTI urine culture pending, IV antibiotic 03/14: Urine cultures no growth to date, continue IV antibiotics 3. History of COPD neb treatments, IV antibiotic 03/14: respiratory status improved 4. Morbidly obese exercise and diet plan discussed with patient 5. Prophylaxis: Lovenox, Pepcid 6. [id number] IV fluids, heart healthy diet Deposition: Inpatient Discharge planning: Plan to discharge home tomorrow if patient better. Extracted from: Title: General Admission H&P * Author: Russell Bui MD Date: 03/12/17 Impression and Plan -Systemic inflammatory response syndrome from multifocal pneumonia, likely gram- negative organism Continue Zosyn and pharmacy dosing vancomycin Follow cultures -Acute on chronic back pain Likely worsened by UTI Continue antibiotics as mentioned above and pain control with as needed [place] and morphine -Asthma and COPD Acute on chronic, worsened by pneumonia Scheduled nebulization treatments and antibiotics as mentioned above -Tobacco abuse Counseled Patient working on quitting -Morbid obesity Counseled DVT prophylaxis; heparin Disposition: Expect around 2 midnight stay
--- OUTSIDE RECORDS SUMMARY | 2018-11-19 23:01 | XMS REPORT | Summary of Care ---
Author Author [facility] Organization [facility] Address Unknown Phone Unavailable Encounter MARGARET Olson(ARY) [id number] Date(s): 09/29/17 - 09/29/17 [facility] [address] [place] [address]- Encounter Diagnosis COPD with acute exacerbation (Discharge Diagnosis) - 09/29/17 Discharge Disposition: Home or Self Care Attending Physician: Luba Crawford MD Vital Signs 1 2 3 Most recent to oldest [Reference Range]: 175.26 cm (09/29/17 2:26 PM) Height 98.7 DegF (09/29/17 2:26 PM) Temperature Oral [96.4-99.1 DegF] 121/83 mmHg (09/29/17 6:51 PM) 114/88 mmHg (09/29/17 4:57 PM) 137/81 mmHg (09/29/17 3:35 PM) Blood Pressure [90-140/60-90 mmHg] 20 BRMIN (09/29/17 6:51 PM) 19 BRMIN (09/29/17 3:35 PM) 20 BRMIN (09/29/17 2:26 PM) Respiratory Rate [14-20 BRMIN] 103 bpm *HI* (09/29/17 2:26 PM) Peripheral Pulse Rate [60-100 bpm] 145.455 kg (09/29/17 2:26 PM) Weight 47.35 m2 (09/29/17 2:26 PM) Body Mass Index Problem List Condition [...] Severity Status NKDA Active HYDROcodone Active Medications albuterol 90 mcg/inh inhalation aerosol 2 puff, INHALATION, Q6H, PRN for wheezing, # 9 gm, 0 Refill(s) Start Date: 09/29/17 Status: Ordered DuoNeb inhalation solution 9 mL, Route: NEB, Dosing Weight 145.455, kg, ONCE, STAT, Start date: 09/29/17 14 :36:00 CDT, Stop date: 09/29/17 14:36:00 CDT Start Date: 09/29/17 Stop Date: 09/29/17 Status: Completed DuoNeb inhalation solution 3 ml, Route: NEB, Drug Form: SOLN, Dosing Weight 145.455, kg, PRN, PRN Respirato ry Protocol, Start date: 09/29/17 14:30:00 CDT, Duration: 30 day, Stop date: 14:29:00 CDT Notes: (Same as: Duoneb) Start Date: 09/29/17 Stop Date: 09/29/17 Status: Discontinued NS (Bolus) IV 1,000 mL, 1,000 ml/hr, Infuse Over: 1 hr, Route: IV, 1,000, Drug form: INJ, ONCE , Priority: STAT, Dosing Weight 145.455 kg, Start date: 09/29/17 14:37:00 CDT, S top date: 09/29/17 14:37:00 CDT Start Date: 09/29/17 Stop Date: 09/29/17 Status: Completed predniSONE 20 mg oral tablet See Special Instructions, PO, Daily, 4 day regimen: Day 1 - 40 mg (2 tabs) Day 2 - 30 mg (1 1/2 tabs) Day 3 - 20 mg (1 tab) Day 4 - 10 mg (1/2 tab), X 4 day, # 6 tab, 0 Refill(s) Start Date: 09/29/17 Stop Date: 10/03/17 Status: Ordered Saline Flush 0.9% 10 mL, Route: IVP, Drug Form: INJ, Dosing Weight 145.455, kg, PRN, PRN Line Flus h, Start date: 09/29/17 14:31:00 CDT, Duration: 30 day, Stop date: 10/29/17 14:3 0:00 CDT Notes: preservative free. Start Date: 09/29/17 Stop Date: 09/29/17 Status: Discontinued Solu-MEDROL 125 mg, 2 mL, Route: IVP, Drug form: INJ, ONCE, Dosing Weight 145.455, kg, Prior ity: STAT, Start date: 09/29/17 14:36:00 CDT, Stop date: 09/29/17 14:36:00 CDT Notes: (Same as:Solu-MEDROL, A-Methapred) Start Date: 09/29/17 Stop Date: 09/29/17 Status: Completed Results ELECTROLYTES Most recent to 1 oldest [Reference Range]: Sodium Lvl [135-145 142 mEq/L mEq/L] (09/29/17 2:44 PM) Potassium Lvl 3.9 mEq/L [3.5-5.1 mEq/L] (09/29/17 2:44 PM) Chloride Lvl [95-109 111 mEq/L mEq/L] *HI* (09/29/17 2:44 PM) CO2 [24-32 mEq/L] 25 mEq/L (09/29/17 2:44 PM) AGAP [10.0-20.0 9.9 mEq/L mEq/L] *LOW* (09/29/17 2:44 PM) CHEM PANEL Most recent to 1 oldest [Reference Range]: Creatinine Lvl 0.76 mg/dL [0.50-1.40 mg/dL] (09/29/17 2:44 PM) eGFR 98 mL/min/1.73m2 1 *NA* (09/29/17 2:44 PM) BUN [7-22 mg/dL] 10 mg/dL (09/29/17 2:44 PM) B/C Ratio [6-25] 13 (09/29/17 2:44 PM) Glucose Lvl [70-99 82 mg/dL mg/dL] (09/29/17 2:44 PM) Total Protein 7.5 g/dL [6.4-8.4 g/dL] (09/29/17 2:44 PM) Albumin Lvl [3.5-5.0 3.2 g/dL g/dL] *LOW* (09/29/17 2:44 PM) Globulin [2.7-4.2 4.3 g/dL g/dL] *HI* (09/29/17 2:44 PM) A/G Ratio [0.7-1.6] 0.7 (09/29/17 2:44 PM) Calcium Lvl 8.6 mg/dL [8.5-10.5 mg/dL] (09/29/17 2:44 PM) ALT [0-65 unit/L] 22 unit/L (09/29/17 2:44 PM) AST [0-37 unit/L] 20 unit/L (09/29/17 2:44 PM) Alk Phos [39-136 101 unit/L unit/L] (09/29/17 2:44 PM) Bili Total [0.2-1.3 0.2 mg/dL mg/dL] (09/29/17 2:44 PM) Lactic Acid Lvl 1.0 mMol/L [0.5-2.2 mMol/L] (09/29/17 2:44 PM) 1Result Comment: The eGFR is calculated [...] be mul tiplied by the estimated BMI. URINE CHEM Most recent to 1 oldest [Reference Range]: U Preg [Negative] Negative (09/29/17 4:49 PM) URINE AND STOOL Most recent to 1 oldest [Reference Range]: UA Turbidity [Clear] Clear (09/29/17 4:49 PM) UA Color [Yellow] Yellow *NA* (09/29/17 4:49 PM) UA pH [5.0-8.0] 5.0 (09/29/17 4:49 PM) UA Spec Grav 1.021 [<=1.030] (09/29/17 4:49 PM) UA Glucose [Negative Negative mg/dL mg/dL] *NA* (09/29/17 4:49 PM) UA Blood [Negative] Negative (09/29/17 4:49 PM) UA Ketones [Negative Negative mg/dL mg/dL] *NA* (09/29/17 4:49 PM) UA Protein [Negative Negative mg/dL mg/dL] (09/29/17 4:49 PM) UA Urobilinogen <=1.0 mg/dL [0.1-1.0 mg/dL] *NA* (09/29/17 4:49 PM) UA Bili [Negative] Negative *NA* (09/29/17 4:49 PM) UA Leuk Est Negative [Negative] (09/29/17 4:49 PM) UA Nitrite Negative [Negative] (09/29/17 4:49 PM) UA WBC [0-5 /HPF] 2 /HPF (09/29/17 4:49 PM) UA RBC [0-2 /HPF] 5 /HPF *HI* (09/29/17 4:49 PM) UA Sq Epi [Few /LPF] Few /LPF *NA* (09/29/17 4:49 PM) UA Mucus [None Seen Few /LPF /LPF] *NA* (09/29/17 4:49 PM) HEMATOLOGY Most recent to 1 oldest [Reference Range]: WBC [3.7-10.4 K/CMM] 12.9 K/CMM *HI* (09/29/17 2:44 PM) RBC [4.20-5.40 4.91 M/CMM M/CMM] (09/29/17 2:44 PM) Hgb [12.0-16.0 g/dL] 12.5 g/dL (09/29/17 2:44 PM) Hct [36.0-48.0 %] 37.7 % (09/29/17 2:44 PM) MCV [80.0-98.0 fL] 76.7 fL *LOW* (09/29/17 2:44 PM) MCH [27.0-31.0 pg] 25.4 pg *LOW* (09/29/17 2:44 PM) MCHC [32.0-36.0 33.1 g/dL g/dL] (09/29/17 2:44 PM) RDW [11.5-14.5 %] 16.1 % *HI* (09/29/17 2:44 PM) MPV [7.4-10.4 fL] 8.3 fL (09/29/17 2:44 PM) Platelet [133-450 326 K/CMM K/CMM] (09/29/17 2:44 PM) Segs [45.0-75.0 %] 65.9 % (09/29/17 2:44 PM) Lymphocytes 26.8 % [20.0-40.0 %] (09/29/17 2:44 PM) Monocytes [2.0-12.0 4.3 % %] (09/29/17 2:44 PM) Eosinophils [0.0-4.0 2.1 % %] (09/29/17 2:44 PM) Basophils [0.0-1.0 0.9 % %] (09/29/17 2:44 PM) Segs-Bands # 8.5 K/CMM [1.5-8.1 K/CMM] *HI* (09/29/17 2:44 PM) Lymphocytes # 3.5 K/CMM [1.0-5.5 K/CMM] (09/29/17 2:44 PM) Monocytes # [0.0-0.8 0.6 K/CMM K/CMM] (09/29/17 2:44 PM) Eosinophils # 0.3 K/CMM [0.0-0.5 K/CMM] (09/29/17 2:44 PM) Basophils # [0.0-0.2 0.1 K/CMM K/CMM] (09/29/17 2:44 PM) Microcyte [None 1+ Seen] *ABN* (09/29/17 2:44 PM) Immunizations Not Given Vaccine Date Status [...]
--- OUTSIDE RECORDS SUMMARY | 2018-11-19 23:01 | XMS REPORT | CCD ---
Author Author Auto Generated Organization [facility] Address Unknown Phone Unavailable Care Team Providers Care [employer] Name Role Phone Donovan Caballero CP Allergies, Adverse Reactions, Alerts Substance Reaction Status NKDA Active Problem List Condition Effective Dates Status Ankle fracture Active Anxiety Active Asthma Active section Active PE - Pulmonary embolism Active Schizophrenia Active
--- OUTSIDE RECORDS SUMMARY | 2018-11-19 23:01 | XMS REPORT | Summary of Care ---
Author Author [facility] Organization [facility] Address Unknown Phone Unavailable Encounter HQ Whitney(ARY) [id number] Date(s): 03/03/18 - 03/03/18 [facility] [address] [place] [address]- [phone] Encounter Diagnosis Acute bronchitis (Discharge Diagnosis) - 03/03/18 Acute upper respiratory infection (Discharge Diagnosis) - 03/03/18 Acute bronchitis, unspecified (Final) - 05/11/18 Chronic obstructive pulmonary disease with acute lower respiratory infection (Final) - Personal history of pulmonary embolism (Final) - Personal history of other venous thrombosis and embolism (Final) - Nicotine dependence, cigarettes, uncomplicated (Final) - 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) - Discharge Disposition: Home or Self Care Attending Physician: Ortiz Lee MD Vital Signs 1 2 3 Most recent to oldest [Reference Range]: 175.26 cm (03/03/18 8:41 AM) Height 98.1 DegF (03/03/18 11:55 AM) 98.1 DegF (03/03/18 10:32 AM) 98.4 DegF (03/03/18 8:41 AM) Temperature Oral [96.4-99.1 DegF] 115/77 mmHg (03/03/18 11:55 AM) 108/73 mmHg (03/03/18 10:32 AM) 133/91 mmHg (03/03/18 8:41 AM) Blood Pressure [90-140/60-90 mmHg] 18 BRMIN (03/03/18 11:55 AM) 16 BRMIN (03/03/18 10:32 AM) 18 BRMIN (03/03/18 8:41 AM) Respiratory Rate [14-20 BRMIN] 78 bpm (03/03/18 11:55 AM) 84 bpm (9/24/18 10:32 AM) 106 bpm *HI* (03/03/18 8:41 AM) Peripheral Pulse Rate [60-100 bpm] 147.273 kg (03/03/18 8:41 AM) Weight 47.95 m2 (03/03/18 8:41 AM) Body Mass Index Problem List Condition Effective Dates Status Health Status Informant Anemia(Confirmed) Active Ankle Active fracture(Confirmed) Anxiety(Confirmed) Active Asthma(Confirmed) Active Asthma(Confirmed) Resolved Active section(Confirmed) COPD (chronic Resolved obstructive pulmonary disease)(Confirmed) DVT - Deep vein Resolved thrombosis(Confirmed )1 PE - Pulmonary Active embolism(Confirmed) Pneumonia(Confirmed) Resolved Schizophrenia(Confir Active med) Sleep Active apnea(Confirmed) 1lung Allergies, Adverse Reactions, Alerts Substance Reaction Severity Status NKDA Active Medications dexamethasone 10 mg, Route: IVP, ONCE, Dosing Weight 147.273, kg, Priority: STAT, Start date: 03/03/18 9:09:00 CDT, Stop date: 03/03/18 9:09:00 CDT Start Date: 03/03/18 Stop Date: 03/03/18 Status: Completed ketOROLAC 30 mg/mL injectable solution 30 mg, Route: IVP, Drug form: INJ, ONCE, Dosing Weight 147.273, kg, Priority: ST AT, Start date: 03/03/18 9:08:00 CDT, Stop date: 03/03/18 9:08:00 CDT Start Date: 03/03/18 Stop Date: 03/03/18 Status: Completed [place] 10/325 oral tablet 1 tab, Route: PO, Drug Form: TAB, Dosing Weight 147.273, kg, ONCE, STAT, Start d ate: 03/03/18 9:09:00 CDT, Stop date: 03/03/18 9:09:00 CDT Start Date: 03/03/18 Stop Date: 03/03/18 Status: Completed NS (Bolus) IV 1,000 mL, 1,000 ml/hr, Infuse Over: 1 hr, Route: IV, ONCE, Priority: STAT, Dosin g Weight 147.273 kg, Start date: 03/03/18 9:08:00 CDT, Stop date: 03/03/18 9:08: 00 CDT Start Date: 03/03/18 Stop Date: 03/03/18 Status: Completed Ultram 50 mg oral tablet 50 mg=1 tab, PO, Q4H, PRN pain, X 3 day, # 20 tab, 0 Refill(s) Start Date: 03/03/18 Stop Date: 03/06/18 Status: Completed Zithromax Z-Cory 250 mg oral tablet See Instructions, Take 2 tablets by mouth the first day then 1 tablet by mouth d ays 2-5., X 5 day, # 6 tab, 0 Refill(s) Start Date: 03/03/18 Stop Date: 03/08/18 Status: Completed Results ELECTROLYTES Most recent to 1 oldest [Reference Range]: Sodium Lvl [135-145 144 mEq/L mEq/L] (03/03/18 9:16 AM) Potassium Lvl 4.2 mEq/L [3.5-5.1 mEq/L] (03/03/18 9:16 AM) Chloride Lvl [95-109 111 mEq/L mEq/L] *HI* (03/03/18 9:16 AM) CO2 [24-32 mEq/L] 22 mEq/L *LOW* (03/03/18 9:16 AM) AGAP [10.0-20.0 15.2 mEq/L mEq/L] (03/03/18 9:16 AM) CHEM PANEL Most recent to 1 oldest [Reference Range]: Creatinine Lvl 0.83 mg/dL [0.50-1.40 mg/dL] (03/03/18 9:16 AM) eGFR 88 mL/min/1.73m2 1 *NA* (03/03/18 9:16 AM) BUN [7-22 mg/dL] 9 mg/dL (03/03/18 9:16 AM) Glucose Lvl [70-99 97 mg/dL mg/dL] (03/03/18 9:16 AM) Calcium Lvl 8.4 mg/dL [8.5-10.5 mg/dL] *LOW* (03/03/18 9:16 AM) 1Result Comment: The eGFR is calculated using [...] be mul tiplied by the estimated BMI. ENDOCRINOLOGY Most recent to 1 oldest [Reference Range]: S Preg [Negative] Negative *NA* (03/03/18 9:16 AM) URINE AND STOOL Most recent to 1 oldest [Reference Range]: UA Turbidity [Clear] Clear (03/03/18 9:40 AM) UA Color [Yellow] Yellow *NA* (03/03/18 9:40 AM) UA pH [5.0-8.0] 5.0 (03/03/18 9:40 AM) UA Spec Grav 1.014 [<=1.030] (03/03/18 9:40 AM) UA Glucose [Negative Negative mg/dL mg/dL] *NA* (03/03/18 9:40 AM) UA Blood [Negative] Negative (03/03/18 9:40 AM) UA Ketones [Negative Negative mg/dL mg/dL] *NA* (03/03/18 9:40 AM) UA Protein [Negative Negative mg/dL mg/dL] (03/03/18 9:40 AM) UA Urobilinogen <=1.0 mg/dL [0.1-1.0 mg/dL] *NA* (03/03/18 9:40 AM) UA Bili [Negative] Negative *NA* (03/03/18 9:40 AM) UA Leuk Est Moderate [Negative] *ABN* (03/03/18 9:40 AM) UA Nitrite Negative [Negative] (03/03/18 9:40 AM) UA WBC [0-5 /HPF] 5 /HPF (03/03/18 9:40 AM) UA RBC [0-2 /HPF] 2 /HPF (03/03/18 9:40 AM) UA Sq Epi [Few /LPF] Occasional /LPF *NA* (03/03/18 9:40 AM) UA Mucus [None Seen Few /LPF /LPF] *NA* (03/03/18 9:40 AM) HEMATOLOGY Most recent to 1 oldest [Reference Range]: WBC [3.7-10.4 K/CMM] 10.0 K/CMM (03/03/18 9:16 AM) RBC [4.20-5.40 4.65 M/CMM M/CMM] (03/03/18 9:16 AM) Hgb [12.0-16.0 g/dL] 11.9 g/dL *LOW* (03/03/18 9:16 AM) Hct [36.0-48.0 %] 35.8 % *LOW* (03/03/18 9:16 AM) MCV [80.0-98.0 fL] 76.9 fL *LOW* (03/03/18 9:16 AM) MCH [27.0-31.0 pg] 25.6 pg *LOW* (03/03/18 9:16 AM) MCHC [32.0-36.0 33.4 g/dL g/dL] (03/03/18 9:16 AM) RDW [11.5-14.5 %] 16.6 % *HI* (03/03/18 9:16 AM) MPV [7.4-10.4 fL] 8.0 fL (03/03/18 9:16 AM) Platelet [133-450 309 K/CMM K/CMM] (03/03/18 9:16 AM) Segs [45.0-75.0 %] 72.5 % (03/03/18 9:16 AM) Lymphocytes 19.5 % [20.0-40.0 %] *LOW* (03/03/18 9:16 AM) Monocytes [2.0-12.0 4.9 % %] (03/03/18 9:16 AM) Eosinophils [0.0-4.0 2.0 % %] (03/03/18 9:16 AM) Basophils [0.0-1.0 1.1 % %] *HI* (03/03/18 9:16 AM) Neutrophils # 7.2 K/CMM [1.5-8.1 K/CMM] (03/03/18 9:16 AM) Lymphocytes # 1.9 K/CMM [1.0-5.5 K/CMM] (03/03/18 9:16 AM) Monocytes # [0.0-0.8 0.5 K/CMM K/CMM] (03/03/18 9:16 AM) Eosinophils # 0.2 K/CMM [0.0-0.5 K/CMM] (03/03/18 9:16 AM) Basophils # [0.0-0.2 0.1 K/CMM K/CMM] (03/03/18 9:16 AM) Microcyte [None 1+ Seen] *ABN* (03/03/18 9:16 AM) D-Dimer 0.33 ug/mL FEU *NA* (03/03/18 9:16 AM) RAPID Most recent to 1 oldest [Reference Range]: Grp A Strep Scr Negative [Negative] (03/03/18 9:16 AM) VIRAL - SEROLOGY Most recent to 1 oldest [Reference Range]: Influ A [Negative] Negative (03/03/18 9:16 AM) Influ B [Negative] Negative (03/03/18 9:16 AM) Microbiology Reports TEST: Culture: Urine STATUS: Auth (Verified) BODY SITE: SOURCE: Urine, Clean Catch COLLECTED DATE/TIME: 03/03/18 9:40 AM FINAL REPORT <10,000 CFU/mL Skin Martina Immunizations Not Given Vaccine Date Status Refusal [...]
--- OUTSIDE RECORDS SUMMARY | 2018-11-19 23:01 | XMS REPORT | Summary of Care ---
Author Author [facility] Organization [facility] Address Unknown Phone Unavailable Encounter MARGARET Olson(ARY) [id number] Date(s): 11/18/17 - 11/18/17 [facility] [place] [address] [place] [address] [phone] Discharge Disposition: Home or Self Care Attending Physician: Messi Mendez MD Vital Signs No data available for this section Problem List Condition Effective Dates Status Health Status Informant Anemia(Confirmed) Active Ankle Active fracture(Confirmed) Anxiety(Confirmed) Active Asthma(Confirmed) Active Asthma(Confirmed) Resolved Active section(Confirmed) COPD (chronic Resolved obstructive pulmonary disease)(Confirmed) DVT - Deep vein Resolved thrombosis(Confirmed )1 PE - Pulmonary Active embolism(Confirmed) Pneumonia(Confirmed) Resolved Schizophrenia(Confir Active med) Sleep Active apnea(Confirmed) 1lung Allergies, Adverse Reactions, Alerts Substance Reaction Severity Status NKDA Active HYDROcodone Active Medications No data available for this section Results No data available for this section Immunizations Not Given Vaccine Date Status Refusal [...]
--- OUTSIDE RECORDS SUMMARY | 2018-11-19 23:01 | XMS REPORT | Summary of Care ---
Author Author [facility] Organization [facility] Address Unknown Phone Unavailable Encounter MARGARET Olson(ARY) [id number] Date(s): 08/18/17 - 08/18/17 [facility] [address] [place] [address]- Encounter Diagnosis Shortness of breath (Final) - 08/24/17 Pain in right arm (Final) - Nicotine dependence, cigarettes, uncomplicated (Final) - Discharge Disposition: [facility]TC Left B4 Treatment Cmplt-MSE Cmplt Attending Physician: Ortiz Lee MD Vital Signs Most recent to 1 oldest [Reference Range]: Temperature Oral 97.9 DegF [96.4-99.1 DegF] (08/18/17 3:51 PM) Blood Pressure 134/69 mmHg [90-140/60-90 mmHg] (08/18/17 3:51 PM) Respiratory Rate 22 BRMIN [14-20 BRMIN] *HI* (08/18/17 3:51 PM) Peripheral Pulse 108 bpm Rate [60-100 bpm] *HI* (08/18/17 3:51 PM) Weight 147.273 kg (08/18/17 3:51 PM) Problem List Condition Effective Dates Status Health Status Informant Anemia(Confirmed) Active Ankle Active fracture(Confirmed) Anxiety(Confirmed) Active Asthma(Confirmed) Active Asthma(Confirmed) Resolved Active section(Confirmed) COPD (chronic Resolved obstructive pulmonary disease)(Confirmed) DVT - Deep vein Resolved thrombosis(Confirmed )1 PE - Pulmonary Active embolism(Confirmed) Pneumonia(Confirmed) Resolved Schizophrenia(Confir Active med) Sleep Active apnea(Confirmed) 1lung Allergies, Adverse Reactions, Alerts Substance Reaction Severity Status NKDA Active HYDROcodone Active Medications DuoNeb inhalation solution 3 ml, Route: INHALATION, Drug Form: SOLN, Dosing Weight 136.364, kg, PRN, PRN Re spiratory Protocol, Start date: 08/18/17 15:53:00 CDT, Duration: 30 day, Stop da te: 09/17/17 15:52:00 CDT Notes: (Same as: Duoneb) Start Date: 08/18/17 Stop Date: 08/18/17 Status: Discontinued Solu-MEDROL 125 mg, 2 mL, Route: IVP, Drug form: INJ, ONCE, Dosing Weight 136.364, kg, Prior ity: STAT, Start date: 08/18/17 15:53:00 CDT, Stop date: 08/18/17 15:53:00 CDT Notes: (Same as:Solu-MEDROL, A-Methapred) Start Date: 08/18/17 Stop Date: 08/28/17 Status: Discontinued Results No data available for this section [...]
--- OUTSIDE RECORDS SUMMARY | 2018-11-19 23:02 | XMS REPORT | Summary of Care ---
Author Author [facility] Organization [facility] Address Unknown Phone Unavailable Encounter MARGARET Olson(ARY) [id number] Date(s): 06/22/15 - 06/22/15 [facility] [address] [place] [address]- Discharge Disposition: Home Attending Physician: Hamida Verdugo MD Vital Signs Most recent to 1 2 oldest [Reference Range]: Height 175.26 cm (06/22/15 9:18 AM) Temperature Oral 98.2 DegF 98.9 DegF [96.4-99.1 DegF] (06/22/15 11:36 AM) (06/22/15 9:18 AM) Blood Pressure 126/87 mmHg 137/84 mmHg [90-140/60-90 mmHg] (06/22/15 11:36 AM) (06/22/15 9:18 AM) Respiratory Rate 16 BRMIN 17 BRMIN [14-20 BRMIN] (06/22/15 11:36 AM) (06/22/15 9:18 AM) Peripheral Pulse 93 bpm 112 bpm Rate [60-100 bpm] (06/22/15 11:36 AM) *HI* (06/22/15 9:18 AM) Weight 127.273 kg (06/22/15 9:18 AM) Body Mass Index 41.44 m2 (06/22/15 9:18 AM) Problem List Condition Effective Dates Status Health Status Informant Anemia(Confirmed) Active Ankle Active fracture(Confirmed) Anxiety(Confirmed) Active Asthma(Confirmed) Active Asthma(Confirmed) Resolved Active section(Confirmed) DVT - Deep vein Resolved thrombosis(Confirmed )1 PE - Pulmonary Active embolism(Confirmed) Pneumonia(Confirmed) Resolved Schizophrenia(Confir Active med) Sleep Active apnea(Confirmed) 1lung Allergies, Adverse Reactions, Alerts Substance Reaction Severity Status NKDA Active Medications Bactrim DS 800 mg- 160 mg oral tablet 1 tab, PO, BID, X 10 day, # 20 tab, 0 Refill(s) Start Date: 06/22/15 Stop Date: 07/02/15 Status: Ordered morphine Sulfate 4 mg, Route: IM, Drug form: INJ, ONCE, Dosing Weight 127.273, kg, Priority: STAT , Start date: 06/22/15 9:53:00, Stop date: 06/22/15 9:53:00 Start Date: 06/22/15 Stop Date: 06/22/15 Status: Completed Results No data available for this section Immunizations No data available for this section [...]
--- OUTSIDE RECORDS SUMMARY | 2018-11-19 23:02 | XMS REPORT | Summary of Care ---
Author Author [facility] Address Unknown Phone Unavailable Encounter HQ Maile_sherley(FIN) [id number] Date(s): 02/17/15 - 02/17/15 [facility] [address] Discharge Disposition: Home Attending Physician: Kevin Callahan MD Vital Signs No data available for this section Problem List Condition Effective Dates Status Health Status Informant Anemia(Confirmed) Active Ankle Active fracture(Confirmed) Anxiety(Confirmed) Active Asthma(Confirmed) Active Asthma(Confirmed) Resolved Active section(Confirmed) DVT - Deep vein Resolved thrombosis(Confirmed )1 PE - Pulmonary Active embolism(Confirmed) Pneumonia(Confirmed) Resolved Schizophrenia(Confir Active med) Sleep Active apnea(Confirmed) 1lung Allergies, Adverse Reactions, Alerts Substance Reaction Severity Status NKDA Active Medications No data available for this [...]
--- OUTSIDE RECORDS SUMMARY | 2018-11-19 23:02 | XMS REPORT | CCD ---
Author Author Auto Generated Organization [facility] Address Unknown Phone Unavailable Care Team Providers Care Funeral Home Attendant Name Role Phone Marcelo Lezama CP Kevin Callahan RP Unavailable Allergies, Adverse Reactions, Alerts Substance Reaction Status NKDA Active Problem List Condition Effective Dates Status Anemia Active Ankle fracture Active Anxiety Active Asthma Active Asthma Resolved section Active DVT - Deep vein thrombosis1 Resolved PE - Pulmonary embolism Active Pneumonia Resolved Schizophrenia Active Sleep apnea Active 1lung Medications Medication Instructions Start Date End Date Status predniSONE 20 mg 40 mg=2 tab, PO, Daily, # 8 tab, 0 07/17/2013 Ordered oral tablet Refill(s) Tylenol with Codeine 15 mL, PO, TID, pain, # 120 mL, 0 07/17/2013 Ordered 120 mg-12 mg/5 mL Refill(s) oral liquid Azithromycin 5 Day 250 mg, PO, Daily, Take 2 tablets 07/17/2013 Ordered Dose Pack 250 mg by mouth the first day then 1 oral tablet tablet by mouth days 2-5, # 6 tab, 0 Refill(s) Take 2 tablets by mouth the first day then 1 tablet by mouth days 2-5 DuoNeb inhalation 3 ml, Route: INHALATION, Drug Form: 07/17/2013 07/17/2013 Discontinued solution SOLN, Dosing Weight 140.909, kg, PRN, PRN Respiratory Protocol, Start date: 07/17/13 10:54:00, Duration: 1 doses or times, Stop date: Limited # of times(Same as: Duoneb) Saline Flush 0.9% 5 mL, Route: IVP, Drug Form: INJ, 07/17/2013 07/17/2013 Discontinued Dosing Weight 140.909, kg, PRN, PRN Line Flush, Start date: 07/17/13 11:07:00, Duration: 1 day, Stop date: 07/18/13 11:06:00(Same as: BD Posiflush) methylPREDNISolone 125 mg, Route: IVP, ONCE, Dosing 07/17/2013 07/17/2013 Completed SODium SUCCinate Weight 140.909, kg, Priority: STAT, Start date: 07/17/13 11:07:00, Stop date: 07/17/13 11:07:00 albuterol 0.083% 2.49 mg=3 mL, NEB, Q6H, # 120 ea, 0 07/17/2013 Ordered inhalation solution Refill(s) Vital Signs Most recent to oldest [Reference Range]: 1 2 3 Height 180.34 cm (07/17/2013 10:51:00) Temperature Oral [96.4-99.1 DegF] 98.0 DegF (07/17/2013 14:00:00) 98.9 DegF (07/17/2013 10:51:00) Systolic Blood Pressure [90-140 mmHg] 121 mmHg (07/17/2013 14:00:00) 120 mmHg (07/17/2013 12:00:00) 149 mmHg *HI* (07/17/2013 10:51:00) Diastolic Blood Pressure [60-90 mmHg] 61 mmHg (07/17/2013 14:00:00) 54 mmHg *LOW* (07/17/2013 12:00:00) 82 mmHg (07/17/2013 10:51:00) Respiratory Rate [14-20 BRMIN] 18 BRMIN (07/17/2013 14:00:00) 20 BRMIN (07/17/2013 12:00:00) 18 BRMIN (07/17/2013 10:51:00) Peripheral Pulse Rate [60-100 bpm] 98 bpm (07/17/2013 14:00:00) 104 bpm *HI* (07/17/2013 12:00:00) 91 bpm (07/17/2013 10:51:00) Weight 140.909 kg (07/17/2013 10:51:00) Results CHEMISTRY Most recent to oldest [Reference Range]: 1 Sodium Lvl [135-145 mEq/L] 140 mEq/L (07/17/2013 11:08:00) Potassium Lvl [3.5-5.1 mEq/L] 3.9 mEq/L (07/17/2013 11:08:00) Chloride Lvl [95-109 mEq/L] 106 mEq/L (07/17/2013 11:08:00) CO2 [24-32 mEq/L] 26 mEq/L (07/17/2013:08:00) AGAP [10.0-20.0 mEq/L] 11.9 mEq/L (07/17/2013 11:08:00) Creatinine Lvl [0.5-1.4 mg/dL] 1.5 mg/dL *HI* (07/17/2013:08:00) eGFR 44 mL/min/1.73m2 1 *NA* (07/17/2013:08:00) BUN [7-22 mg/dL] 15 mg/dL (07/17/2013:08:00) Glucose Lvl [70-99 mg/dL] 107 mg/dL 2 *HI* (07/17/2013:08:00) Calcium Lvl [8.5-10.5 mg/dL] 8.8 mg/dL (07/17/2013:08:00) 1Result Comment: The eGFR is calculated using [...] be mul tiplied by the estimated BMI. 2Interpretive Data: Adult reference range values reflect the clinical guidelines of the [place] [employer]. HEMATOLOGY Most recent to oldest [Reference Range]: 1 WBC [3.7-10.4 K/CMM] 6.1 K/CMM (07/17/2013 11:08:00) RBC [4.20-5.40 M/CMM] 4.71 M/CMM (07/17/2013 11:08:00) Hgb [12.0-16.0 g/dL] 12.3 g/dL (07/17/2013:08:00) Hct [36.0-48.0 %] 37.6 % (07/17/2013:08:00) MCV [81.0-99.0 fL] 79.9 fL *LOW* (07/17/2013:08:00) MCH [27.0-31.0 pg] 26.2 pg *LOW* (07/17/2013) MCHC [32.0-36.0 g/dL] 32.8 g/dL (07/17/2013:08:00) RDW [11.5-14.5 %] 15.1 % *HI* (07/17/2013:08:) Platelet [133-450 K/CMM] 289 K/CMM (07/17/2013:08:00) MPV [7.4-10.4 fL] 8.1 fL (07/17/2013::) Segs [45.0-75.0 %] 78.1 % *HI* (07/17/2013:08:) Lymphocytes [20.0-40.0 %] 18.8 % *LOW* (07/17/2013:) Monocytes [2.0-12.0 %] 2.9 % (07/17/2013:08:00) Eosinophils [0.0-4.0 %] 0.1 % (07/17/2013:08:00) Basophils [0.0-1.0 %] 0.1 % (07/17/2013:08:00) Segs-Bands # [1.5-8.1 K/CMM] 4.8 K/CMM (07/17/2013:08:00) Lymphocytes # [1.0-5.5 K/CMM] 1.2 K/CMM (07/17/2013:08:00) Monocytes # [0.0-0.8 K/CMM] 0.2 K/CMM (07/17/2013:08:00) Eosinophils # [0.0-0.5 K/CMM] 0.0 K/CMM (07/17/2013 11:08:00) Basophils # [0.0-0.2 K/CMM] 0.0 K/CMM (07/17/2013 11:08:00) IMMUNOLOGY Most recent to oldest [Reference Range]: 1 CDC HIV 4th GEN [Negative] Negative (07/17/2013 11:08:00)
--- OUTSIDE RECORDS SUMMARY | 2018-11-19 23:02 | XMS REPORT | Summary of Care ---
Author Organization Unknown Address Unknown Phone Unavailable Encounter MARGARET Olson(ARY) [id number] Date(s): 09/28/13 - 09/28/13 [facility] [id number] Discharge Disposition: Not Seen Physician Attending: Brown Maya MD Reason for Visit CHEST PAIN Vital Signs Most recent to 1 oldest [Reference Range]: Height 177.8 cm (09/28/13 2:59 PM) Temperature Oral 98.7 DegF [96.4-99.1 DegF] (09/28/13 2:59 PM) Systolic Blood 116 mmHg Pressure [90-140 (09/28/13 2:59 PM) mmHg] Diastolic Blood 54 mmHg Pressure [60-90 *LOW* mmHg] (09/28/13 2:59 PM) Respiratory Rate 18 BRMIN [14-20 BRMIN] (09/28/13 2:59 PM) Peripheral Pulse 88 bpm Rate [60-100 bpm] (09/28/13 2:59 PM) Weight 141.818 kg (09/28/13 2:59 PM) Body Mass Index 44.86 m2 (09/28/13 2:59 PM) Problem List Condition Effective Dates Status Health Status Informant Anemia(Confirmed) Active Ankle Active fracture(Confirmed) Anxiety(Confirmed) Active Asthma(Confirmed) Active Asthma(Confirmed) Resolved Active section(Confirmed) DVT - Deep vein Resolved thrombosis(Confirmed )1 PE - Pulmonary Active embolism(Confirmed) Pneumonia(Confirmed) Resolved Schizophrenia(Confir Active med) Sleep Active apnea(Confirmed) 1lung Allergies, Adverse Reactions, Alerts Substance Reaction Severity Status NKDA Active Medications No data available for this section Medications Administered During Your Visit No data available for this section Immunizations No data available for this section Social History Social History Type Response Alcohol Use: Current, Type: Liquor, Frequency: 1-2 times per year, Previous treatment: None, Has alcohol use interfered with work or home life? No, Do you ever drink more than intended? No, Has anyone been hurt or at risk by your drinking? No, Ready to change: No, Concerns about alcohol use in household: No Smoking Status Current every day smoker, Type: Cigarettes, Ready to change: No, Concerns about tobacco use in household: Yes, Exposure to Tobacco Smoke Lives with someone who smokes, Cigarette Smoking Last 365 Days Yes, Reg Smoking Cessation Counseling No
--- OUTSIDE RECORDS SUMMARY | 2018-11-19 23:02 | XMS REPORT | Summary of Care ---
Author Organization Unknown Address Unknown Phone Unavailable Encounter Dates Location Diagnoses Discharge Providers Disposition 07/28/2013 [facility] - [facility] 07/28/2013 [address] [place], [place] [address] , [facility] Reason for Visit 379.91 - PAIN IN OR [facility] Problem List Condition Effective Dates Status Health Status Informant Anemia(Confirmed) Active Ankle Active fracture(Confirmed) Anxiety(Confirmed) Active Asthma(Confirmed) Active Asthma(Confirmed) Resolved Active section(Confirmed) DVT - Deep vein Resolved thrombosis(Confirmed )1 PE - Pulmonary Active embolism(Confirmed) Pneumonia(Confirmed) Resolved Schizophrenia(Confir Active med) Sleep Active apnea(Confirmed) 1lung Allergies, Adverse Reactions, Alerts Status Substance Reaction Severity Active NKDA Medications No data available for this section [...] No. Household alcohol concerns: No. Smoking Status Use: Current every day smoker. Type: Cigarettes. 10 per day. Ready to change: No. Household tobacco concerns: Yes. Tobacco smoke exposure: Lives with someone who smokes. Did the Patient Smoke Cigarettes Anytime During the Last 365 Days? Yes. Cessation Counseling Provided? No.
--- OUTSIDE RECORDS SUMMARY | 2018-11-19 23:02 | XMS REPORT | CCD ---
Author Author Auto Generated Organization [facility] Address Unknown Phone Unavailable Care Team Providers Care Toddler Lead Teacher Name Role Phone Marcelo Lezama CP Allergies, Adverse Reactions, Alerts Substance Reaction Status NKDA Active Problem List Condition Effective Dates Status Anxiety Active Asthma Active section Active PE - Pulmonary embolism Active Schizophrenia Active Medications Medication Instructions Start Date End Date Status hydromorphone 2 mg, 1 mL, Route: IM, Drug form: 04/21/2012 04/21/2012 Completed INJ, ONCE, Dosing Weight 136.364, kg, Priority: STAT, Start date: 04/21/12 0:11:00, Stop date: 04/21/12 0:11:00 [place] 10/325 oral 1-2 tab, PO, Q4-6H, PRN, 30 tab, 04/21/2012 04/26/2012 Ordered tablet Pain, Substitution Allowed, Maintenance Colace 100 mg oral 100 mg, 1 cap, PO, BID, PRN, 20 04/21/2012 Ordered capsule cap, Constipation, Substitution Allowed, CAP Vital Signs Most recent to oldest [Reference Range]: 1 Height 175.26 cm (04/20/2012 21:42:00) Weight 136.364 kg (04/20/2012 21:42:00)
--- OUTSIDE RECORDS SUMMARY | 2018-11-19 23:02 | XMS REPORT | Summary of Care ---
Author Organization Unknown Address Unknown Phone Unavailable Encounter MARGARET Olson(ARY) [id number] Date(s): 08/21/14 - 08/21/14 [facility] [address] [place] [address]- Discharge Disposition: Not Seen Physician Attending: Alec Magana MD Vital Signs Most recent to 1 oldest [Reference Range]: Height 177.8 cm (08/21/14 2:42 PM) Temperature Oral 98.1 DegF [96.4-99.1 DegF] (08/21/14 2:42 PM) Blood Pressure 130/75 mmHg [90-140/60-90 mmHg] (08/21/14 2:42 PM) Respiratory Rate 18 BRMIN [14-20 BRMIN] (08/21/14 2:42 PM) Peripheral Pulse 97 bpm Rate [60-100 bpm] (08/21/14 2:42 PM) Weight 122.727 kg (08/21/14 2:42 PM) Body Mass Index 38.82 m2 (08/21/14 2:42 PM) Problem List Condition Effective Dates Status [...] No data available for this section Procedures No data available for this section Social [...]
--- OUTSIDE RECORDS SUMMARY | 2018-11-19 23:02 | XMS REPORT | CCD ---
Author Author Auto Generated Organization [facility] Address Unknown Phone Unavailable Care Team Providers Care Forester Silvicult[employer] Name Role Phone Wolfgang Mcqueen II CP Allergies, Adverse Reactions, Alerts Substance Reaction Status NKDA Active Problem List Condition Effective Dates Status Anxiety Active Asthma Active section Active PE - Pulmonary embolism Active Schizophrenia Active Medications Medication Instructions Start Date End Date Status morphine Sulfate 2 mg, 1 mL, Route: IV, Drug form: 04/22/2012 04/25/2012 Discontinued INJ, Q4H, PRN Pain, Start date: 04/22/12 8:45:00, Duration: 30 day, Stop date: 05/22/12 8:44:00 codeine-guaifenesin 10 mL, Route: PO, Drug Form: LIQ, 04/22/2012 04/25/2012 Discontinued Q6H, PRN Cough, Start date: 04/22/12 8:36:00, Duration: 30 day, Stop date: 05/22/12 8:35:00 Esgic 2 tab, Route: PO, Drug Form: TAB, 04/23/2012 04/23/2012 Completed ONCE, Start date: 04/23/12 12:00:00, Stop date: 04/23/12 12:00:00 docusate sodium 100 100 mg, 1 cap, Route: PO, Drug 04/23/2012 04/25/2012 Discontinued mg oral capsule form: CAP, BID, PRN Constipation, Start date: 04/23/12 11:14:00, Duration: 30 day, Stop date: 05/23/12 11:13:00 Sodium Chloride 1,000 mL, Rate: 100 ml/hr, Infuse 04/22/2012 04/22/2012 Completed 0.45% IV 1,000 mL over: 10 hr, Route: IV, kg, Total Volume: 1,000, Start date: 04/22/12 8:36:00, Duration: 15 hr, Stop date: 04/22/12 23:35:00 ferrous sulfate 325 mg, 1 tab, Route: PO, Drug 04/23/2012 04/25/2012 Discontinued form: TAB, BID, Start date: 04/23/12 12:00:00, Duration: 30 day, Stop date: 05/23/12 9:00:00 Ambien 5 mg, 1 tab, Route: PO, Drug form: 04/24/2012 04/25/2012 Discontinued TAB, Bedtime, PRN Sleep, Start date: 04/24/12 20:36:00, Duration: 30 day, Stop date: 05/24/12 20:35:00 Lovenox 140 mg, 0.93 mL, Route: SUB-Q, Drug 04/22/2012 04/24/2012 Discontinued form: INJ, [id number], Start date: 04/22/12 17:00:00, Duration: 30 day, Stop date: 05/22/12 5:00:00 methylPREDNISolone 40 mg, 1 mL, Route: IV, Drug form: 04/22/2012 04/25/2012 Discontinued INJ, Q8H, Start date: 04/22/12 16:00:00, Duration: 30 day, Stop date: 05/22/12 8:00:00 K-Dur 10 30 mEq, 3 tab, Route: PO, Drug 04/22/2012 04/22/2012 Completed form: ERTAB, Q1H, Start date: 04/22/12 9:00:00, Duration: 2 doses or times, Stop date: 04/22/12 10:00:00 Esgic 2 tab, Route: PO, Drug Form: TAB, 04/23/2012 04/25/2012 Discontinued Q6H, PRN Pain, Start date: 04/23/12 11:13:00, Duration: 30 day, Stop date: 05/23/12 11:12:00 Esgic 1 tab, Route: PO, Drug Form: TAB, 04/23/2012 04/25/2012 Discontinued Q6H, PRN Pain, Start date: 04/23/12 11:12:00, Duration: 30 day, Stop date: 05/23/12 11:11:00 acetaminophen-oxycod 1 tab, Route: PO, Drug Form: TAB, 04/25/2012 04/25/2012 Discontinued one 325 mg-10 mg Q4H, PRN Other -See Comment, Start oral tablet date: 04/25/12 10:35:00, Duration: 30 day, Stop date: 05/25/12 10:34:00 Levaquin 750 mg, 150 mL, Route: IV, Drug 04/22/2012 04/22/2012 Discontinued form: SOLN, [id number], Start date: 04/22/12 9:00:00, Duration: 30 day, Stop date: 05/21/12 9:00:00 acetaminophen 1,000 mg, 2 tab, Route: PO, Drug 04/22/2012 04/22/2012 Discontinued form: TAB, ONCE, Dosing Weight 136.364, kg, Start date: 04/22/12 1:43:00, Stop date: 04/22/12 1:43:00 morphine Sulfate 2 mg, Route: IVP, ONCE, Dosing 04/22/2012 04/22/2012 Completed Weight 136.364, kg, Priority: STAT, Start date: 04/22/12 7:40:00, Stop date: 04/22/12 7:40:00 Zithromax IVPB, 166.67 ml/hr, [id number], Start 04/22/2012 04/25/2012 Discontinued date: 04/22/12 14:00:00, Duration: 30, 250 ml Coumadin 7.5 mg, 1 tab, Route: PO, Drug 04/22/2012 04/25/2012 Discontinued form: TAB, Q5PM, Start date: 04/22/12 9:00:00, Duration: 30 day, Stop date: 05/21/12 17:00:00 Protonix 40 mg, 1 tab, Route: PO, Drug form: 04/22/2012 04/23/2012 Discontinued ECTAB, Before Dinner, Start date: 04/22/12 9:00:00, Duration: 30 day, Stop date: 05/21/12 16:30:00 predniSONE 60 mg, 3 tab, Route: PO, Drug form: 04/22/2012 04/22/2012 Completed TAB, ONCE, Dosing Weight 136.364, kg, Priority: STAT, Start date: 04/22/12 1:40:00, Stop date: 04/22/12 1:40:00 DuoNeb inhalation 3 mL, Route: INHALATION, Drug Form: 04/22/2012 04/22/2012 Completed solution SOLN, Dosing Weight 136.364, kg, Q15Min, PRN Wheezing, Start date: 04/22/12 1:42:00, Duration: 3 doses or times, Stop date: Limited # of times Rocephin + Sodium 1 gm, Route: IVPB, [id number], Start 04/22/2012 04/25/2012 Discontinued Chloride 0.9% IV 100 date: 04/22/12 13:00:00, Duration: mL 30 day, Stop date: 05/21/12 13:00:00 Lovenox 40 mg, 0.4 mL, Route: SUB-Q, Drug 04/25/2012 04/25/2012 Discontinued form: INJ, Daily, Start date: 04/25/12 9:00:00, Duration: 30 day, Stop date: 05/24/12 9:00:00 lidocaine-prilocaine 1 appl, Route: TOP, ONCALL, Drug 04/22/2012 04/25/2012 Discontinued topical form: CRM, Start date: 04/22/12 9:00:00, Duration: 2 day, Stop date: 04/24/12 8:59:00 methylPREDNISolone 60 mg, 0.96 mL, Route: IV, Drug 04/23/2012 04/22/2012 Canceled form: INJ, Q8H, Start date: 04/23/12 9:00:00, Duration: 3 doses or times, Stop date: 04/24/12 1:00:00 DuoNeb inhalation 3 mL, Route: NEB, Drug Form: SOLN, 04/22/2012 04/25/2012 Discontinued solution [id number], Start date: 04/22/12 11:00:00, Duration: 30 day, Stop date: 05/22/12 7:00:00 Tessalon Perles 200 mg, 2 cap, Route: PO, Drug 04/22/2012 04/25/2012 Discontinued form: CAP, Q8H-06, Start date: 04/22/12 9:00:00, Duration: 30 day, Stop date: 05/22/12 6:00:00 Zofran 4 mg, 2 mL, Route: IVP, Drug form: 04/22/2012 04/25/2012 Discontinued INJ, Q6H, PRN Nausea, Priority: STAT, Start date: 04/22/12 8:46:00, Duration: 30 day, Stop date: 05/22/12 8:45:00 acetaminophen-hydroc 1 tab, Route: PO, Drug Form: TAB, 04/22/2012 04/25/2012 Discontinued odone 325 mg-10 mg Q6H, PRN Pain, Start date: 04/22/12 oral tablet 8:46:00, Duration: 30 day, Stop date: 05/22/12 8:45:00 Singulair 10 mg, 1 tab, Route: PO, Drug form: 04/25/2012 04/25/2012 Canceled TAB, Daily, Start date: 04/25/12 21:00:00, Duration: 30 day, Stop date: 05/24/12 21:00:00 fluticasone-salmeter 1 inhalation, Route: INHALER, Drug 04/22/2012 04/25/2012 Discontinued ol 250 mcg-50 mcg Form: AERO, RBID, Start date: MDI 04/22/12 20:00:00, Duration: 30 day, Stop date: 05/22/12 8:00:00 tramadol 50 mg oral 100 mg, 2 tab, Route: PO, Drug 04/22/2012 04/25/2012 Discontinued tablet form: TAB, Q6H, PRN Pain, Start date: 04/22/12 8:46:00, Duration: 30 day, Stop date: 05/22/12 8:45:00 predniSONE 40 mg, 2 tab, Route: PO, Drug form: 04/26/2012 04/25/2012 Canceled TAB, Daily, Start date: 04/26/12 9:00:00, Duration: 30 day, Stop date: 05/25/12 9:00:00 Dilaudid 1 mg, 1 mL, Route: IV, Drug form: 04/22/2012 04/22/2012 Completed INJ, ONCE, Dosing Weight 136.364, kg, Start date: 04/22/12 5:37:00, Stop date: 04/22/12 5:37:00 Sodium Chloride 0.9% 1,000 mL, Rate: 125 ml/hr, Infuse 04/23/2012 04/24/2012 Discontinued IV 1,000 mL over: 8 hr, Route: IV, kg, Total Volume: 1,000, Start date: 04/23/12 12:00:00, Duration: 30 day, Stop date: 05/23/12 11:59:00 methylPREDNISolone 100 mg, 1.6 mL, Route: IV, Drug 04/22/2012 04/22/2012 Discontinued form: INJ, Q8H, Start date: 04/22/12 9:00:00, Duration: 3 doses or times, Stop date: 04/23/12 1:00:00 Xanax 0.5 mg, 1 tab, Route: PO, Drug 04/22/2012 04/25/2012 Discontinued form: TAB, QID, PRN Anxiety, Start date: 04/22/12 8:38:00, Duration: 30 day, Stop date: 05/22/12 8:37:00 multivitamin 1 tab, Route: PO, Drug Form: TAB, 04/23/2012 04/24/2012 Completed BID, Start date: 04/23/12 12:00:00, Duration: 3 doses or times, Stop date: 04/24/12 17:00:00 Lovenox 130 mg, 0.87 mL, Route: SUB-Q, Drug 04/22/2012 04/22/2012 Completed form: INJ, ONCE, Dosing Weight 136.364, kg, Priority: STAT, Start date: 04/22/12 5:16:00, Stop date: 04/22/12 5:16:00 Protonix 40 mg, 1 tab, Route: PO, Drug form: 04/23/2012 04/25/2012 Discontinued ECTAB, BID-Before Meals, Start date: 04/23/12 16:30:00, Duration: 30 day, Stop date: 05/23/12 7:30:00 DuoNeb inhalation 3 mL, Route: NEB, Drug Form: SOLN, 04/22/2012 04/25/2012 Discontinued solution PRN, PRN Wheezing, Start date: 04/22/12 8:32:00, Duration: 30 day, Stop date: 05/22/12 8:31:00 Vital Signs Most recent to oldest [Reference Range]: 1 2 3 Height 175.26 cm (04/22/2012 10:30:00) 177.80 cm (04/22/2012 01:22:00) Current Weight 151.000 kg (04/24/2012 04:30:00) 139.119 kg (04/23/2012 06:00:00) Temperature Oral [96.4-99.1 DegF] 98.4 DegF (04/25/2012 12:01:00) 97.6 DegF (04/25/2012 06:59:00) 97.9 DegF (04/25/2012 00:04:00) Systolic Blood Pressure [90-140 mmHg] 122 mmHg (04/25/2012 12:01:00) 124 mmHg (04/25/2012 06:59:00) 123 mmHg (04/25/2012 00:04:00) Diastolic Blood Pressure [60-90 mmHg] 86 mmHg (04/25/2012 12:01:00) 76 mmHg (04/25/2012 06:59:00) 80 mmHg (04/25/2012 00:04:00) Respiratory Rate [14-20 BRMIN] 18 BRMIN (04/25/2012 12:01:00) 16 BRMIN (04/25/2012 07:17:00) 18 BRMIN (04/25/2012 06:59:00) Peripheral Pulse Rate [60-100 bpm] 87 bpm (04/25/2012 12:01:00) 80 bpm (04/25/2012 06:59:00) 121 bpm *HI* (04/25/2012 00:04:00) Weight 138.409 kg (04/22/2012 10:30:00) 136.364 kg (04/22/2012 01:22:00) Results BACTERIAL - SEROLOGY Most recent to oldest [Reference Range]: 1 2 3 U S pneumo Ag [Negative] Negative (04/22/2012 09:30:00) MICRO MISC - SEROLOGY Most recent to oldest [Reference Range]: 1 2 3 U Legion Ag [Negative] Negative 1 (04/22/2012 09:30:00) 1Interpretive Data: This kit tests for Legionella pneumophila Serogroup 1 Antigen. CHEMISTRY Most recent to oldest [Reference Range]: 1 2 3 Sodium Lvl [135-145 mEq/L] 142 mEq/L (04/25/2012 06:20:00) 141 mEq/L (04/24/2012 03:35:00) 140 mEq/L (04/23/2012 03:30:00) Potassium Lvl [3.5-5.1 mEq/L] 4.5 mEq/L (04/25/2012 06:20:00) 4.7 mEq/L (04/24/2012 03:35:00) 4.1 mEq/L (04/23/2012 03:30:00) Chloride Lvl [95-109 mEq/L] 108 mEq/L (04/25/2012 06:20:00) 109 mEq/L (04/24/2012 03:35:00) 106 mEq/L (04/23/2012 03:30:00) CO2 [24-32 mEq/L] 29 mEq/L (04/25/2012 06:20:00) 28 mEq/L (04/24/2012 03:35:00) 27 mEq/L (04/23/2012 03:30:00) AGAP [10.0-20.0 mEq/L] 9.5 mEq/L *LOW* (04/25/2012 06:20:00) 8.7 mEq/L *LOW* (04/24/2012 03:35:00) 11.1 mEq/L (04/23/2012 03:30:00) Creatinine Lvl [0.5-1.4 mg/dL] 0.7 mg/dL (04/25/2012 06:20:00) 0.8 mg/dL (04/24/2012 03:35:00) 0.9 mg/dL (04/23/2012 03:30:00) eGFR 113 mL/min/1.73m2 2 *NA* (04/25/2012 06:20:00) 96 mL/min/1.73m2 3 *NA* (04/24/2012 03:35:00) 83 mL/min/1.73m2 4 *NA* (04/23/2012 03:30:00) BUN [7-22 mg/dL] 13 mg/dL (04/25/2012 06:20:00) 11 mg/dL (04/24/2012 03:35:00) 8 mg/dL (04/23/2012 03:30:00) B/C Ratio [6-25] 8 (04/22/2012 02:15:00) Glucose Lvl [70-99 mg/dL] 192 mg/dL 5 *HI* (04/25/2012 06:20:00) 143 mg/dL 6 *HI* (04/24/2012 03:35:00) 163 mg/dL 7 *HI* (04/23/2012 03:30:00) Total Protein [6.4-8.4 g/dL] 7.1 g/dL (04/22/2012 02:15:00) Albumin Lvl [3.5-5.0 g/dL] 3.3 g/dL *LOW* (04/22/2012 02:15:00) Globulin [2.0-4.0 g/dL] 3.8 g/dL (04/22/2012 02:15:00) A/G Ratio [0.7-1.6] 0.9 (04/22/2012 02:15:00) Calcium Lvl [8.5-10.5 mg/dL] 8.2 mg/dL *LOW* (04/25/2012 06:20:00) 8.3 mg/dL *LOW* (04/24/2012 03:35:00) 8.9 mg/dL (04/23/2012 03:30:00) Magnesium Lvl [1.8-2.4 mg/dL] 2.2 mg/dL (04/25/2012 06:20:00) 2.0 mg/dL (04/24/2012 03:35:00) ALT [0-65 unit/L] 19 unit/L (04/22/2012 02:15:00) AST [0-37 unit/L] 20 unit/L (04/22/2012 02:15:00) Alk Phos [39-136 unit/L] 91 unit/L (04/22/2012 02:15:00) Bili Total [0.2-1.3 mg/dL] 0.2 mg/dL (04/22/2012 02:15:00) Total CK [12-191 unit/L] 60 unit/L (04/23/2012 11:44:00) CK MB [0.5-3.6 ng/mL] 0.7 ng/mL (04/23/2012 11:44:00) CK MB Index [0.0-2.5] 1.2 (04/23/2012 11:44:00) Troponin-I [0.00-0.40 ng/mL] <0.02 ng/mL (04/23/2012 11:44:00) Iron [30-160 ug/dl] 34 ug/dl (04/22/2012 09:11:00) Ferritin Lvl [5-204 ng/mL] 58 ng/mL (04/22/2012 09:11:00) S Preg [Negative] Negative *NA* (04/22/2012:15:00) pH Art [7.35-7.45] 7.40 (04/24/2012:25:00) 7.42 (04/23/2012 04:20:00) 7.44 (04/22/2012 07:38:00) pCO2 Art [35-45 mmHg] 45 mmHg (04/24/2012:25:00) 42 mmHg (04/23/2012 04:20:00) 40 mmHg (04/22/2012 07:38:00) pO2 Art [80-100 mmHg] 65 mmHg *LOW* (04/24/2012:25:00) 72 mmHg *LOW* (04/23/2012 04:20:00) 60 mmHg 8 *CRIT* (04/22/2012 07:38:00) HCO3 Art [22-26 mMol/L] 27 mMol/L *HI* (04/24/2012:25:00) 27 mMol/L *HI* (04/23/2012 04:20:00) 26 mMol/L (04/22/2012 07:38:00) BE Art [-2-2 mMol/L] 2 mMol/L (04/24/2012:25:00) 2 mMol/L (04/23/2012 04:20:00) 2 mMol/L (04/22/2012 07:38:00) O2 Sat Art [95.0-100.0 %] 93.3 % *LOW* (04/24/2012:25:00) 95.2 % (04/23/2012 04:20:00) 92.9 % *LOW* (04/22/2012 07:38:00) Site Art Right Ra (04/24/2012 14:25:00) Right Ra (04/23/2012 04:20:00) Right Br (04/22/2012 07:38:00) Allens Art Positive (04/24/2012:25:00) Positive (04/23/2012 04:20:00) N/A (04/22/2012 07:38:00) Flow Art 2.0 *NA* (04/23/2012 04:20:00) Mode Art Rm Air (04/24/2012:25:00) NC (04/23/2012 04:20:00) Rm Air (04/22/2012 07:38:00) FiO2 Art 21.0 *NA* (04/24/2012 14:25:00) 2Result Comment: The eGFR is calculated using [...] be mul tiplied by the estimated BMI. 4Result Comment: The eGFR is calculated using [...] be mul tiplied by the estimated BMI. 5Interpretive Data: Adult reference range values reflect the clinical guidelines of the [place] [employer]. 6Interpretive Data: Adult reference range values reflect the clinical guidelines of the [place] [employer]. 7Interpretive Data: Adult reference range values reflect the clinical guidelines of the [place] [employer]. 8Result Comment: Critical Result(s) called to at 04/22/2012 07:40:31 CHIEF LENDING OFFICER by CONNOR Newell. Read back OK. HEMATOLOGY Most recent to oldest [Reference Range]: 1 2 3 WBC [3.7-10.4 K/CMM] 11.8 K/CMM *HI* (04/25/2012 06:20:00) 16.2 K/CMM *HI* (04/24/2012 03:35:00) 8.9 K/CMM (04/23/2012 03:30:00) RBC [4.20-5.40 M/CMM] 3.84 M/CMM *LOW* (04/25/2012 06:20:00) 3.84 M/CMM *LOW* (04/24/2012 03:35:00) 3.86 M/CMM *LOW* (04/23/2012 03:30:00) Hgb [12.0-16.0 g/dL] 10.5 g/dL *LOW* (04/25/2012 06:20:00) 10.5 g/dL *LOW* (04/24/2012 03:35:00) 10.6 g/dL *LOW* (04/23/2012 03:30:00) Hct [36.0-48.0 %] 30.9 % *LOW* (04/25/2012 06:20:00) 30.9 % *LOW* (04/24/2012 03:35:00) 30.7 % *LOW* (04/23/2012 03:30:00) MCV [81.0-99.0 fL] 80.4 fL *LOW* (04/25/2012 06:20:00) 80.7 fL *LOW* (04/24/2012 03:35:00) 79.5 fL *LOW* (04/23/2012 03:30:00) MCH [27.0-31.0 pg] 27.5 pg (04/25/2012 06:20:00) 27.3 pg (04/24/2012 03:35:00) 27.5 pg (04/23/2012 03:30:00) MCHC [32.0-36.0 g/dL] 34.2 g/dL (04/25/2012 06:20:00) 33.9 g/dL (04/24/2012 03:35:00) 34.5 g/dL (04/23/2012 03:30:00) RDW [11.5-14.5 %] 16.2 % *HI* (04/25/2012 06:20:00) 15.9 % *HI* (04/24/2012 03:35:00) 15.8 % *HI* (04/23/2012 03:30:00) Platelet [133-450 K/CMM] 279 K/CMM (04/25/2012 06:20:00) 287 K/CMM (04/24/2012 03:35:00) 258 K/CMM (04/23/2012 03:30:00) MPV [7.4-10.4 fL] 8.5 fL (04/25/2012 06:20:00) 8.8 fL (04/24/2012 03:35:00) 8.5 fL (04/23/2012 03:30:00) Segs [45.0-75.0 %] 88.7 % *HI* (04/25/2012 06:20:00) 90.4 % *HI* (04/24/2012 03:35:00) 91.5 % *HI* (04/23/2012 03:30:00) Lymphocytes [20.0-40.0 %] 8.1 % *LOW* (04/25/2012 06:20:00) 6.3 % *LOW* (04/24/2012 03:35:00) 6.3 % *LOW* (04/23/2012 03:30:00) Monocytes [2.0-12.0 %] 3.1 % (04/25/2012 06:20:00) 3.3 % (04/24/2012 03:35:00) 1.7 % *LOW* (04/23/2012 03:30:00) Eosinophils [0.0-4.0 %] 0.0 % (04/25/2012 06:20:00) 0.0 % (04/24/2012 03:35:00) 0.0 % (04/23/2012 03:30:00) Basophils [0.0-1.0 %] 0.1 % (04/25/2012 06:20:00) 0.0 % (04/24/2012 03:35:00) 0.5 % (04/23/2012 03:30:00) Segs-Bands # [1.5-8.1 K/CMM] 10.4 K/CMM *HI* (04/25/2012 06:20:00) 14.7 K/CMM *HI* (04/24/2012 03:35:00) 8.2 K/CMM *HI* (04/23/2012 03:30:00) Lymphocytes # [1.0-5.5 K/CMM] 1.0 K/CMM (04/25/2012 06:20:00) 1.0 K/CMM (04/24/2012 03:35:00) 0.6 K/CMM *LOW* (04/23/2012 03:30:00) Monocytes # [0.0-0.8 K/CMM] 0.4 K/CMM (04/25/2012 06:20:00) 0.5 K/CMM (04/24/2012 03:35:00) 0.2 K/CMM (04/23/2012 03:30:00) Eosinophils # [0.0-0.5 K/CMM] 0.0 K/CMM (04/25/2012 06:20:00) 0.0 K/CMM (04/24/2012 03:35:00) 0.0 K/CMM (04/23/2012 03:30:00) Basophils # [0.0-0.2 K/CMM] 0.0 K/CMM (04/25/2012 06:20:00) 0.0 K/CMM (04/24/2012 03:35:00) 0.0 K/CMM (04/23/2012 03:30:00) PT [12.0-14.7 seconds] 14.9 seconds *HI* (04/25/2012 06:20:00) 15.9 seconds *HI* (04/24/2012 14:15:00) 14.5 seconds (04/23/2012 03:30:00) INR [0.85-1.17] 1.15 9 (04/25/2012 06:20:00) 1.25 10 *HI* (04/24/2012 14:15:00) 1.11 11 (04/23/2012 03:30:00) D-Dimer 0.47 ug/mL FEU 12 *NA* (04/22/2012 12:00:00) PTT [22.9-35.8 seconds] 44.2 seconds 13 *HI* (04/23/2012 03:30:00) 35.4 seconds 14 (04/22/2012 02:15:00) Protein C Func [72-147 %] 172 % *HI* (04/22/2012 02:15:00) Protein S Func [54-137 %] 109 % (04/22/2012 02:15:00) 9Interpretive Data: RECOMMENDED RANGES FOR PROTIME INR: 2.0-3.0 for most medical and surgical thromboembolic states. 2.5-3.5 for artificial heart valves and recurrent embolism. INR SHOULD BE USED ONLY FOR PATIENTS ON STABLE ANTICOAGULANT THERAPY. 10Interpretive Data: RECOMMENDED RANGES FOR PROTIME INR: 2.0-3.0 for most medical and surgical thromboembolic states. 2.5-3.5 for artificial heart valves and recurrent embolism. INR SHOULD BE USED ONLY FOR PATIENTS ON STABLE ANTICOAGULANT THERAPY. 11Interpretive Data: RECOMMENDED RANGES FOR PROTIME INR: 2.0-3.0 for most medical and surgical thromboembolic states. 2.5-3.5 for artificial heart valves and recurrent embolism. INR SHOULD BE USED ONLY FOR PATIENTS ON STABLE ANTICOAGULANT THERAPY. 12Interpretive Data: In DIC, quantitative D-Dimer is generally greater than 0.66 ug/mL FEU. Values of quantitative D-Dimer less than 0.40 ug/mL FEU have been reported to be associated with a low probability of deep vein thrombosis/pulmonary embolism. This test alone should not be used to rule out DVT/PE. 13Interpretive Data: Heparin Therapeutic Range: 57 - 92 Seconds 14Interpretive Data: Heparin Therapeutic Range: 57 - 92 Seconds Microbiology Reports PROCEDURE:Gram Stain STATUS: Auth (Verified) BODY SITE: COLLECTED DATE/TIME: 04/22/2012 15:20:00 SOURCE: Sputum FREE TEXT SOURCE: FINAL REPORTS Final Report Good Quality Specimen Less Than 25 Squamous Epithelial Cells/Lpf Few Gram Positive Cocci In Pairs And Chains PROCEDURE:Culture: Respiratory w/Gram Stain STATUS: Auth (Verified) BODY SITE: COLLECTED DATE/TIME: 04/22/2012 15:20:00 SOURCE: Sputum FREE TEXT SOURCE: FINAL REPORTS Final Report Normal Respiratory Martina Isolated PRELIMINARY REPORTS Preliminary Report No Growth; Holding STAIN REPORTS Stain Report Gram Stain Performed By: [facility] PROCEDURE:Culture: Urine STATUS: Auth (Verified) BODY SITE: COLLECTED DATE/TIME: 04/22/2012 09:30:00 SOURCE: Urine, Clean Catch FREE TEXT SOURCE: FINAL REPORTS Final Report 50,000 - 100,000 CFU/mL Skin Martina PRELIMINARY REPORTS Preliminary Report No Growth; Holding PROCEDURE:Culture: Blood STATUS: In Progress BODY SITE: Right Arm COLLECTED DATE/TIME: 04/22/2012 09:11:00 SOURCE: Blood FREE TEXT SOURCE: PRELIMINARY REPORTS Preliminary Report No Growth At 3 Days Preliminary Report No Growth At 1 Day Preliminary Report No Growth At 2 Days Preliminary Report No Growth; Holding Preliminary Report No Growth At 4 Days PROCEDURE:Culture: Blood STATUS: In Progress BODY SITE: Right Arm COLLECTED DATE/TIME: 04/22/2012 08:50:00 SOURCE: Blood FREE TEXT SOURCE: PRELIMINARY REPORTS Preliminary Report No Growth; Holding Preliminary Report No Growth At 3 Days Preliminary Report No Growth At 2 Days Preliminary Report No Growth At 4 Days Preliminary Report No Growth At 1 Day
--- OUTSIDE RECORDS SUMMARY | 2018-11-19 23:02 | XMS REPORT | CCD ---
Author Author Auto Generated Organization [facility] Outpatient Imaging [facility] Address Unknown Phone Unavailable Care Team Providers Care [employer] Fence Erector Name Role Phone Donovan Caballero CP Allergies, Adverse Reactions, Alerts Substance Reaction Status NKDA Active Problem List Condition Effective Dates Status Ankle fracture Active Anxiety Active Asthma Active section Active PE - Pulmonary embolism Active Schizophrenia Active
--- OUTSIDE RECORDS SUMMARY | 2018-11-19 23:02 | XMS REPORT | Summary of Care ---
Author Author [facility] Organization [facility] Address Unknown Phone Unavailable Encounter [facility] Whitney(ARY) [id number] Date(s): 02/07/15 - 02/07/15 [facility] [address] [place] [address]- Discharge Disposition: NT Attending Physician: Melo Meier MD Vital Signs No data available for [...]
--- OUTSIDE RECORDS SUMMARY | 2018-11-19 23:02 | XMS REPORT | CCD ---
Author Author Auto Generated Organization [facility] Address Unknown Phone Unavailable Care Team Providers Care Senior Manager Asset Protection Name Role Phone Santiago Perez CP Allergies, Adverse Reactions, Alerts Substance Reaction Status NKDA Active Medications Medication Instructions Start Date End Date Status Zofran 4 mg, 2 mL, Route: IVP, Drug form: 04/20/2012 04/20/2012 Completed INJ, ONCE, Dosing Weight 136.364, kg, Priority: STAT, Start date: 04/20/12 1:01:00, Stop date: 04/20/12 1:01:00 morphine Sulfate 6 mg, 0.6 mL, Route: IVP, Drug 04/20/2012 04/20/2012 Completed form: INJ, ONCE, Dosing Weight 136.364, kg, Start date: 04/20/12 1:01:00, Stop date: 04/20/12 1:01:00 Versed 4 mg, 4 mL, Route: IVP, Drug form: 04/20/2012 04/20/2012 Completed SOLN, ONCE, Dosing Weight 136.364, kg, Priority: STAT, Start date: 04/20/12 1:21:00, Stop date: 04/20/12 1:21:00 Dilaudid 1 mg, 1 mL, Route: IV, Drug form: 04/20/2012 04/20/2012 Completed INJ, ONCE, Dosing Weight 136.364, kg, Start date: 04/20/12 1:21:00, Stop date: 04/20/12 1:21:00 [place] 10/325 oral 1 tab, PO, Q4H, PRN, 24 tab, for 04/20/2012 Ordered tablet pain, Substitution Allowed, Maintenance Vital Signs Most recent to oldest [Reference Range]: 1 Height 180.34 cm (04/20/2012 00:16:00) Weight 136.364 kg (04/20/2012 00:16:00)
--- OUTSIDE RECORDS SUMMARY | 2018-11-19 23:02 | XMS REPORT | CCD ---
Author Author Auto Generated Organization [facility] Address Unknown Phone Unavailable Care Team Providers Care Ply Cutter Name Role Phone Donovan Caballero RP Allergies, Adverse Reactions, Alerts Substance Reaction Status NKDA Active Problem List Condition Effective Dates Status Ankle fracture Active Anxiety Active Asthma Active section Active PE - Pulmonary embolism Active Schizophrenia Active Medications Medication Instructions Start Date End Date Status Demerol HCl 50 mg, 1 mL, Route: IM, Drug form: 04/28/2012 04/28/2012 Completed INJ, ONCE, Dosing Weight 136.364, kg, Start date: 04/28/12 16:20:00, Stop date: 04/28/12 16:20:00 acetaminophen 1,000 mg, 100 mL, Route: IVPB, Drug 04/28/2012 04/28/2012 Ordered form: INJ, ONCE, Dosing Weight 136.364, kg, Start date: 04/28/12 15:29:00, Stop date: 04/28/12 15:29:00 Sublimaze 50 microgram, Route: IRRIG, ONCE, 04/28/2012 04/28/2012 Completed Dosing Weight 136.364, kg, Start date: 04/28/12 15:29:00, Stop date: 04/28/12 15:29:00 cefazolin + Sodium 1 gm, Route: IVPB, PRE OP, Start 04/28/2012 04/28/2012 Completed Chloride 0.9% IV 100 date: 04/28/12 13:00:00, Duration: mL 12 hr, Stop date: 04/29/12 0:59:00 Sublimaze 50 microgram, Route: IRRIG, ONCE, 04/28/2012 04/28/2012 Completed Dosing Weight 136.364, kg, Start date: 04/28/12 15:29:00, Stop date: 04/28/12 15:29:00 cefazolin + Sodium 1 gm, Route: IVPB, PRE OP, Start 04/28/2012 04/28/2012 Completed Chloride 0.9% IV 100 date: 04/28/12 13:00:00, Duration: mL 12 hr, Stop date: 04/29/12 0:59:00 lidocaine 0.1 mL, Route: IV, Drug form: INJ, 04/28/2012 04/28/2012 Completed ONCALL, Start date: 04/28/12 9:00:00, Duration: 12 hr, Stop date: 04/28/12 20:59:00 Dilaudid 0.5 mg, 0.25 mL, Route: IVP, Drug 04/28/2012 04/28/2012 Ordered form: INJ, ONCE, Dosing Weight 136.364, kg, Start date: 04/28/12 15:37:00, Stop date: 04/28/12 15:37:00 Dilaudid 0.5 mg, 0.25 mL, Route: IVP, Drug 04/28/2012 04/28/2012 Ordered form: INJ, ONCE, Dosing Weight 136.364, kg, Start date: 04/28/12 15:37:00, Stop date: 04/28/12 15:37:00 Dilaudid 0.5 mg, 0.25 mL, Route: IVP, Drug 04/28/2012 04/28/2012 Ordered form: INJ, ONCE, Dosing Weight 136.364, kg, Start date: 04/28/12 15:37:00, Stop date: 04/28/12 15:37:00 Dilaudid 0.5 mg, Route: IVP, ONCE, Dosing 04/28/2012 04/28/2012 Completed Weight 136.364, kg, Start date: 04/28/12 15:37:00, Stop date: 04/28/12 15:37:00 Lactated Ringers 1,000 mL, Rate: 100 ml/hr, Infuse 04/28/2012 04/28/2012 Discontinued Injection IV 1,000 over: 10 hr, Route: IV, kg, Total mL Volume: 1,000, Start date: 04/28/12 9:00:00, Duration: 12 hr, Stop date: 04/28/12 20:59:00 Vital Signs Most recent to oldest [Reference Range]: 1 2 3 Height 177.80 cm (04/28/2012 07:56:00) Systolic Blood Pressure [90-140 mmHg] 126 mmHg (04/28/2012 17:40:00) 110 mmHg (04/28/2012 17:15:00) 107 mmHg (04/28/2012 16:45:00) Diastolic Blood Pressure [60-90 mmHg] 72 mmHg (04/28/2012 17:40:00) 76 mmHg (04/28/2012 17:15:00) 71 mmHg (04/28/2012 16:45:00) Respiratory Rate [14-20 BRMIN] 18 BRMIN (04/28/2012 17:40:00) 20 BRMIN (04/28/2012 17:15:00) 16 BRMIN (04/28/2012 16:45:00) Peripheral Pulse Rate [60-100 bpm] 84 bpm (04/28/2012 17:40:00) 82 bpm (04/28/2012 17:15:00) 81 bpm (04/28/2012 16:45:00) Weight 136.364 kg (04/28/2012 07:56:00)
--- OUTSIDE RECORDS SUMMARY | 2018-11-19 23:02 | XMS REPORT | Summary of Care ---
Author Organization Unknown Address Unknown Phone Unavailable Encounter MARGARET Olson(ARY) [id number] Date(s): 08/22/14 - 08/22/14 [facility] [address] [place] [address]- Discharge Diagnosis: Back pain Discharge Diagnosis: Accidental fall Discharge Disposition: Home Physician Attending: Marcelo Lezama MD Vital Signs Most recent to 1 oldest [Reference Range]: Height 175.26 cm (08/22/14 11:40 AM) Temperature Oral 98.8 DegF [96.4-99.1 DegF] (08/22/14 11:40 AM) Blood Pressure 116/74 mmHg [90-140/60-90 mmHg] (08/22/14 11:40 AM) Respiratory Rate 20 BRMIN [14-20 BRMIN] (08/22/14 11:40 AM) Peripheral Pulse 85 bpm Rate [60-100 bpm] (08/22/14 11:40 AM) Weight 122.727 kg (08/22/14 11:40 AM) Body Mass Index 39.96 m2 (08/22/14 11:40 AM) Problem List Condition Effective Dates Status Health Status Informant Anemia(Confirmed) Active Ankle Active fracture(Confirmed) Anxiety(Confirmed) Active Asthma(Confirmed) Active Asthma(Confirmed) Resolved Active section(Confirmed) DVT - Deep vein Resolved thrombosis(Confirmed )1 PE - Pulmonary Active embolism(Confirmed) Pneumonia(Confirmed) Resolved Schizophrenia(Confir Active med) Sleep Active apnea(Confirmed) 1lung Allergies, Adverse Reactions, Alerts Substance Reaction Severity Status NKDA Active Medications Flexeril 10 mg, 1 tab, Route: PO, Drug form: TAB, ONCE, Dosing Weight 122.727, kg, Priori ty: STAT, Start date: 08/22/14 12:01:00, Stop date: 08/22/14 12:01:00 Notes: (Same As: Flexeril) Start Date: 08/22/14 Stop Date: 08/22/14 Status: Completed Flexeril 10 mg oral tablet 10 mg=1 tab, PO, BID, # 6 tab, 0 Refill(s) Start Date: 08/22/14 Stop Date: 08/25/14 Status: Ordered Motrin 800 mg oral tablet 800 mg=1 tab, PO, Q8H, Pain, Take with food, # 15 tab, 0 Refill(s) Special Instructions: Take with food Start Date: 08/22/14 Status: Ordered [place] 5/325 oral tablet 1 tab, Route: PO, Drug Form: TAB, Dosing Weight 122.727, kg, ONCE, STAT, Start d ate: 08/22/14 12:01:00, Stop date: 08/22/14 12:01:00 Notes: (Same as: [place] 325/5) Do not exceed 4gm/day of acetaminophen. Start Date: 08/22/14 Stop Date: 08/22/14 Status: Completed Results No data available for [...]
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
--- OUTSIDE RECORDS SUMMARY | 2018-11-19 23:02 | XMS REPORT | CCD ---
Author Author Auto Generated Organization [facility] Address Unknown Phone Unavailable Care Team Providers Care Stem Teacher Name Role Phone Kirby Larios CP Allergies, Adverse Reactions, Alerts Substance Reaction Status NKDA Active Problem List Condition Effective Dates Status Anemia Resolved Ankle fracture Active Anxiety Active Asthma Active section Active DVT - Deep vein thrombosis1 Resolved PE - Pulmonary embolism Active Schizophrenia Active Sleep apnea Resolved 1lung Medications Medication Instructions Start Date End Date Status Saline Flush 0.9% 5 mL, Route: IVP, Drug Form: INJ, 07/01/2012 07/02/2012 Discontinued Dosing Weight 136.364, kg, Q8H, PRN Line Flush, Start date: 07/01/12 22:10:00, Duration: 30 day, Stop date: 07/31/12 22:09:00, Administer at least once every 8 hours Administer at least once every 8 hours [place] 5/325 oral 1 tab, PO, Q4H, PRN, 20 tab, for 07/02/2012 Ordered tablet pain, Substitution Allowed, Maintenance, TAB clindamycin 150 mg 150 mg, 1 cap, PO, Q6H, 20 cap, 07/02/2012 07/07/2012 Ordered oral capsule Substitution Allowed, CAP Vital Signs Most recent to oldest [Reference Range]: 1 Height 180.34 cm (07/01/2012 20:49:00) Weight 136.364 kg (07/01/2012 20:49:00) Results CHEMISTRY Most recent to oldest [Reference Range]: 1 Sodium Lvl [135-145 mEq/L] 139 mEq/L (07/01/2012 22:20:00) Potassium Lvl [3.5-5.1 mEq/L] 3.7 mEq/L (07/01/2012 22:20:00) Chloride Lvl [95-109 mEq/L] 104 mEq/L (07/01/2012 22:20:00) CO2 [24-32 mEq/L] 28 mEq/L (07/01/2012 22:20:00) AGAP [10.0-20.0 mEq/L] 10.7 mEq/L (07/01/2012:20:00) Creatinine Lvl [0.5-1.4 mg/dL] 1.0 mg/dL (07/01/2012 22:20:00) eGFR 73 mL/min/1.73m2 1 *NA* (07/01/2012:20:00) BUN [7-22 mg/dL] 12 mg/dL (07/01/2012:20:00) B/C Ratio [6-25] 12 (07/01/2012:20:00) Glucose Lvl [70-99 mg/dL] 100 mg/dL 2 *HI* (07/01/2012:20:00) Total Protein [6.4-8.4 g/dL] 7.8 g/dL (07/01/2012:20:00) Albumin Lvl [3.5-5.0 g/dL] 3.6 g/dL (07/01/2012:20:00) Globulin [2.0-4.0 g/dL] 4.2 g/dL *HI* (07/01/2012:20:00) A/G Ratio [0.7-1.6] 0.9 (07/01/2012:20:00) Calcium Lvl [8.5-10.5 mg/dL] 9.3 mg/dL (07/01/2012:20:00) ALT [0-65 unit/L] 18 unit/L (07/01/2012:20:00) AST [0-37 unit/L] 11 unit/L (07/01/2012:20:00) Alk Phos [39-136 unit/L] 99 unit/L (07/01/2012:20:00) Bili Total [0.2-1.3 mg/dL] 0.2 mg/dL (07/01/2012 22:20:00) Total CK [12-191 unit/L] 23 unit/L (07/01/2012 22:20:00) CK MB [0.5-3.6 ng/mL] <0.5 ng/mL (07/01/2012 22:20:00) CK MB Index [0.0-2.5] <2.2 (07/01/2012:20:00) Troponin-I [0.00-0.40 ng/mL] <0.02 ng/mL (07/01/2012 22:20:00) 1Result Comment: The eGFR is calculated using [...] values reflect the clinical guidelines of the [employer]. HEMATOLOGY Most recent to oldest [Reference Range]: 1 WBC [3.7-10.4 K/CMM] 13.2 K/CMM *HI* (07/01/2012 22:20:00) RBC [4.20-5.40 M/CMM] 4.87 M/CMM (07/01/2012:20:00) Hgb [12.0-16.0 g/dL] 12.9 g/dL (07/01/2012:20:00) Hct [36.0-48.0 %] 38.2 % (07/01/2012:20:00) MCV [81.0-99.0 fL] 78.4 fL *LOW* (07/01/2012:20:00) MCH [27.0-31.0 pg] 26.5 pg *LOW* (07/01/2012:20:00) MCHC [32.0-36.0 g/dL] 33.8 g/dL (07/01/2012 22:20:00) RDW [11.5-14.5 %] 15.1 % *HI* (07/01/2012 22:20:00) Platelet [133-450 K/CMM] 320 K/CMM (07/01/2012:20:00) MPV [7.4-10.4 fL] 8.4 fL (07/01/2012 22:20:00) Segs [45.0-75.0 %] 73.5 % (07/01/2012 22:20:00) Lymphocytes [20.0-40.0 %] 20.0 % (07/01/2012 22:20:00) Monocytes [2.0-12.0 %] 3.8 % (07/01/2012:20:00) Eosinophils [0.0-4.0 %] 0.6 % (07/01/2012:20:00) Basophils [0.0-1.0 %] 2.1 % *HI* (07/01/2012:20:00) Segs-Bands # [1.5-8.1 K/CMM] 9.7 K/CMM *HI* (07/01/2012 22:20:00) Lymphocytes # [1.0-5.5 K/CMM] 2.6 K/CMM (07/01/2012 22:20:00) Monocytes # [0.0-0.8 K/CMM] 0.5 K/CMM (07/01/2012 22:20:00) Eosinophils # [0.0-0.5 K/CMM] 0.1 K/CMM (07/01/2012 22:20:00) Basophils # [0.0-0.2 K/CMM] 0.3 K/CMM *HI* (07/01/2012 22:20:00) PT [12.0-14.7 seconds] 13.5 seconds (07/01/2012 22:20:00) INR [0.85-1.17] 1.01 3 (07/01/2012 22:20:00) D-Dimer <0.22 ug/mL FEU 4 *ABN* (07/01/2012 22:20:00) PTT [22.9-35.8 seconds] 29.5 seconds 5 (07/01/2012 22:20:00) 3Interpretive Data: RECOMMENDED RANGES FOR PROTIME INR: 2.0-3.0 for most medical and surgical thromboembolic states. 2.5-3.5 for artificial heart valves and recurrent embolism. INR SHOULD BE USED ONLY FOR PATIENTS ON STABLE ANTICOAGULANT THERAPY. 4Interpretive Data: In DIC, quantitative D-Dimer is generally greater than 0.66 ug/mL FEU. Values of quantitative D-Dimer less than 0.40 ug/mL FEU have been reported to be associated with a low probability of deep vein thrombosis/pulmonary embolism. This test alone should not be used to rule out DVT/PE. 5Interpretive Data: Heparin Therapeutic Range: 57 - 92 Seconds
[2018-11-19 23:03] VITALS: BP 115/76
--- OUTSIDE RECORDS SUMMARY | 2018-11-19 23:03 | XMS REPORT | Summary of Care ---
Author Author [facility] Organization [facility] Address Unknown Phone Unavailable Encounter MARGARET Olson(ARY) [id number] Date(s): 01/07/16 - 01/07/16 [facility] [address] [place] [address]- Discharge Diagnosis: Chronic neck pain Discharge Diagnosis: Headache Discharge Disposition: Home or Self Care Attending Physician: Carroll Fine MD Vital Signs 1 2 3 Most recent to oldest [Reference Range]: 172.72 cm (01/07/16 1:37 AM) Height 98.4 DegF (01/07/16 4:34 AM) 98.4 DegF (01/07/16 1:37 AM) Temperature Oral [96.4-99.1 DegF] 124/66 mmHg (01/07/16 4:34 AM) 130/70 mmHg (01/07/16 3:54 AM) 100/59 mmHg (01/07/16 2:23 AM) Blood Pressure [90-140/60-90 mmHg] 18 BRMIN (01/07/16 4:34 AM) 18 BRMIN (01/07/16 3:54 AM) 18 BRMIN (01/07/16 2:23 AM) Respiratory Rate [14-20 BRMIN] 93 bpm (01/07/16 4:34 AM) 95 bpm (01/07/16 3:54 AM) 101 bpm *HI* (01/07/16 2:23 AM) Peripheral Pulse Rate [60-100 bpm] 143.636 kg (01/07/16 1:37 AM) Weight 48.15 m2 (01/07/16 1:37 AM) Body Mass Index Problem List Condition Effective Dates Status Health Status Informant Anemia(Confirmed) Active Ankle Active fracture(Confirmed) Anxiety(Confirmed) Active Asthma(Confirmed) Active Asthma(Confirmed) Resolved Active section(Confirmed) DVT - Deep vein Resolved thrombosis(Confirmed )1 PE - Pulmonary Active embolism(Confirmed) Pneumonia(Confirmed) Resolved Schizophrenia(Confir Active med) Sleep Active apnea(Confirmed) 1lung Allergies, Adverse Reactions, Alerts Substance Reaction Severity Status NKDA Active Medications diphenhydrAMINE 25 mg, Route: IVP, ONCE, Dosing Weight 143.636, kg, Priority: STAT, Start date: 01/07/16 2:32:00 CDT, Stop date: 01/07/16 2:32:00 CDT Start Date: 01/07/16 Stop Date: 01/07/16 Status: Completed Fioricet 300 mg-50 mg-40 mg oral capsule 1 cap, PO, Q4H, PRN PRN Headache, Do not exceed 6 capsules in 24 hours, X 5 day, # 30 cap, 0 Refill(s) Start Date: 01/07/16 Stop Date: 01/12/16 Status: Ordered metoclopramide 10 mg, Route: IVP, Drug form: INJ, ONCE, Dosing Weight 143.636, kg, Priority: ST AT, Start date: 01/07/16 2:32:00 CDT, Stop date: 01/07/16 2:32:00 CDT Start Date: 01/07/16 Stop Date: 01/07/16 Status: Completed Sodium Chloride 0.9% (Bolus) IV 1,000 mL, 1,000 ml/hr, Infuse Over: 1 hr, Route: IV, ONCE, Priority: STAT, Dosin g Weight 143.636 kg, Start date: 01/07/16 2:32:00 CDT, Duration: 1 doses or time s, Stop date: 01/07/16 2:32:00 CDT Start Date: 01/07/16 Stop Date: 01/07/16 Status: Completed Zofran ODT 4 mg oral tablet, disintegrating 4 mg=1 tab, PO, Q8H, PRN as needed for nausea/vomiting, X 3 day, # 12 tab, 0 Ref ill(s) Start Date: 01/07/16 Stop Date: 01/10/16 Status: Ordered Results ELECTROLYTES Most recent to 1 oldest [Reference Range]: Sodium Lvl [135-145 139 mEq/L mEq/L] (01/07/16 2:50 AM) Potassium Lvl 3.6 mEq/L [3.5-5.1 mEq/L] (01/07/16 2:50 AM) Chloride Lvl [95-109 108 mEq/L mEq/L] (01/07/16 2:50 AM) CO2 [24-32 mEq/L] 23 mEq/L *LOW* (01/07/16 2:50 AM) AGAP [10.0-20.0 11.6 mEq/L mEq/L] (01/07/16 2:50 AM) CHEM PANEL Most recent to 1 oldest [Reference Range]: Creatinine Lvl 0.89 mg/dL [0.50-1.40 mg/dL] (01/07/16 2:50 AM) eGFR 82 mL/min/1.73m2 1 *NA* (01/07/16 2:50 AM) BUN [7-22 mg/dL] 14 mg/dL (01/07/16 2:50 AM) Glucose Lvl [70-99 99 mg/dL mg/dL] (01/07/16 2:50 AM) Calcium Lvl 8.6 mg/dL [8.5-10.5 mg/dL] (01/07/16 2:50 AM) 1Result Comment: The eGFR is calculated [...] oldest [Reference Range]: U Preg [Negative] Negative (01/07/16 3:02 AM) URINE AND STOOL Most recent to 1 oldest [Reference Range]: UA Turbidity [Clear] Slight *ABN* (01/07/16 3:02 AM) UA Color [Yellow] Yellow *NA* (01/07/16 3:02 AM) UA pH [5.0-8.0] 6.0 (01/07/16 3:02 AM) UA Spec Grav 1.026 [<=1.030] (01/07/16 3:02 AM) UA Glucose [Negative Negative mg/dL mg/dL] *NA* (01/07/16 3:02 AM) UA Blood [Negative] Negative (01/07/16 3:02 AM) UA Ketones [Negative Negative mg/dL mg/dL] *NA* (01/07/16 3:02 AM) UA Protein [Negative Negative mg/dL mg/dL] (01/07/16 3:02 AM) UA Urobilinogen <=1.0 mg/dL [0.1-1.0 mg/dL] *NA* (01/07/16 3:02 AM) UA Bili [Negative] Negative *NA* (01/07/16 3:02 AM) UA Leuk Est Large [Negative] *ABN* (01/07/16 3:02 AM) UA Nitrite Negative [Negative] (01/07/16 3:02 AM) UA WBC [0-5 /HPF] 8 /HPF *HI* (01/07/16 3:02 AM) UA RBC [0-2 /HPF] 7 /HPF *HI* (01/07/16 3:02 AM) UA Bacteria [None Occasional /HPF Seen /HPF] *NA* (01/07/16 3:02 AM) UA Sq Epi [Few /LPF] Many /LPF *ABN* (01/07/16 3:02 AM) UA Mucus [None Seen Few /LPF /LPF] *NA* (01/07/16 3:02 AM) HEMATOLOGY Most recent to 1 oldest [Reference Range]: WBC [3.7-10.4 K/CMM] 14.6 K/CMM *HI* (01/07/16 2:50 AM) RBC [4.20-5.40 4.82 M/CMM M/CMM] (01/07/16 2:50 AM) Hgb [12.0-16.0 g/dL] 12.8 g/dL (01/07/16 2:50 AM) Hct [36.0-48.0 %] 38.7 % (01/07/16 2:50 AM) MCV [80.0-98.0 fL] 80.4 fL (01/07/16 2:50 AM) MCH [27.0-31.0 pg] 26.6 pg *LOW* (01/07/16 2:50 AM) MCHC [32.0-36.0 33.1 g/dL g/dL] (01/07/16 2:50 AM) RDW [11.5-14.5 %] 14.5 % (01/07/16 2:50 AM) Platelet [133-450 315 K/CMM K/CMM] (01/07/16 2:50 AM) MPV [7.4-10.4 fL] 8.1 fL (01/07/16 2:50 AM) Segs [45.0-75.0 %] 74.8 % (01/07/16 2:50 AM) Lymphocytes 18.5 % [20.0-40.0 %] *LOW* (01/07/16 2:50 AM) Monocytes [2.0-12.0 4.8 % %] (01/07/16 2:50 AM) Eosinophils [0.0-4.0 0.9 % %] (01/07/16 2:50 AM) Basophils [0.0-1.0 1.0 % %] (01/07/16 2:50 AM) Segs-Bands # 10.9 K/CMM [1.5-8.1 K/CMM] *HI* (01/07/16 2:50 AM) Lymphocytes # 2.7 K/CMM [1.0-5.5 K/CMM] (01/07/16 2:50 AM) Monocytes # [0.0-0.8 0.7 K/CMM K/CMM] (01/07/16 2:50 AM) Eosinophils # 0.1 K/CMM [0.0-0.5 K/CMM] (01/07/16 2:50 AM) Basophils # [0.0-0.2 0.1 K/CMM K/CMM] (01/07/16 2:50 AM) Immunizations No data available for this section [...]
--- OUTSIDE RECORDS SUMMARY | 2018-11-19 23:03 | XMS REPORT | Summary of Care ---
Author Author [facility] Organization [facility] Address Unknown Phone Unavailable Encounter MARGARET Olson(ARY) [id number] Date(s): 05/13/16 - 05/13/16 [facility] [address] [place] [address]- [phone] Discharge Diagnosis: Splenomegaly Discharge Diagnosis: Viral syndrome Discharge Disposition: Home or Self Care Attending Physician: Jorge Sandoval MD Vital Signs 1 2 3 Most recent to oldest [Reference Range]: 175.26 cm (05/13/16 9:02 AM) Height 98.3 DegF (05/13/16 1:45 PM) 99.3 DegF *HI* (05/13/16 9:02 AM) Temperature Oral [96.4-99.1 DegF] 107/56 mmHg (05/13/16 1:45 PM) 101/70 mmHg (05/13/16 10:00 AM) 121/66 mmHg (05/13/16 9:02 AM) Blood Pressure [90-140/60-90 mmHg] 16 BRMIN (05/13/16 1:45 PM) 16 BRMIN (05/13/16 10:00 AM) 19 BRMIN (05/13/16 9:02 AM) Respiratory Rate [14-20 BRMIN] 97 bpm (05/13/16 1:45 PM) 103 bpm *HI* (05/13/16 10:00 AM) 124 bpm *HI* (05/13/16 9:02 AM) Peripheral Pulse Rate [60-100 bpm] 143.636 kg (05/13/16 9:02 AM) Weight 46.76 m2 (05/13/16 9:02 AM) Body Mass Index Problem List Condition Effective Dates Status Health Status Informant Anemia(Confirmed) Active Ankle Active fracture(Confirmed) Anxiety(Confirmed) Active Asthma(Confirmed) Active Asthma(Confirmed) Resolved Active section(Confirmed) DVT - Deep vein Resolved thrombosis(Confirmed )1 PE - Pulmonary Active embolism(Confirmed) Pneumonia(Confirmed) Resolved Schizophrenia(Confir Active med) Sleep Active apnea(Confirmed) 1lung Allergies, Adverse Reactions, Alerts Substance Reaction Severity Status NKDA Active Medications Lactated Ringers 1,000 mL 1,000 mL, Rate: 999 ml/hr, Infuse over: 1 hr, Route: IV, Dosing Weight 143.636 k g, Total Volume: 1,000, Start date: 05/13/16 9:12:00 GLAZE MAKER, Duration: 1 hr, Stop d ate: 05/13/16 10:11:00 GLAZE MAKER Start Date: 05/13/16 Stop Date: 05/13/16 Status: Completed levofloxacin 750 mg, 150 mL, Route: IVPB, Drug form: SOLN, ONCE, Dosing Weight 143.636, kg, P riority: STAT, Start date: 05/13/16 9:11:00 GLAZE MAKER, Stop date: 05/13/16 9:11:00 GLAZE MAKER Notes: (Same as:Levaquin) Start Date: 05/13/16 Stop Date: 05/13/16 Status: Completed morphine Sulfate 4 mg, Route: IVP, ONCE, Dosing Weight 143.636, kg, Priority: STAT, Start date: 07/14/15 10:06:00 GLAZE MAKER, Stop date: 05/13/16 10:06:00 GLAZE MAKER Start Date: 05/13/16 Stop Date: 05/13/16 Status: Completed morphine Sulfate 4 mg, Route: IVP, ONCE, Dosing Weight 143.636, kg, Priority: STAT, Start date: 07/14/15 11:32:00 GLAZE MAKER, Stop date: 05/13/16 11:32:00 GLAZE MAKER Start Date: 05/13/16 Stop Date: 05/13/16 Status: Completed Motrin 800 mg, Route: PO, Drug form: TAB, ONCE, Dosing Weight 143.636, kg, Priority: ST AT, Start date: 05/13/16 13:14:00 GLAZE MAKER, Stop date: 05/13/16 13:14:00 GLAZE MAKER Start Date: 05/13/16 Stop Date: 05/13/16 Status: Completed Saline Flush 0.9% 10 mL, Route: IVP, Drug Form: INJ, Dosing Weight 143.636, kg, PRN, PRN Line Flus h, Start date: 05/13/16 9:11:00 GLAZE MAKER, Duration: 30 day, Stop date: 06/12/16 9:10: 00 GLAZE MAKER Notes: (Same as: BD Posiflush) Start Date: 05/13/16 Stop Date: 05/13/16 Status: Discontinued Tylenol 1,000 mg, 2 tab, Route: PO, Drug form: TAB, ONCE, Dosing Weight 143.636, kg, Sta rt date: 05/13/16 9:13:00 GLAZE MAKER, Stop date: 05/13/16 9:13:00 GLAZE MAKER Notes: Max acetaminophen 4000 mg/day (4 gm/day). (Same as: Tylenol Extra Streng th) Start Date: 05/13/16 Stop Date: 05/13/16 Status: Completed Tylenol with Codeine #3 oral tablet 1 - 2 tab, PO, Q6H, PRN Pain, X 4 day, # 32 tab, 0 Refill(s) Start Date: 05/13/16 Stop Date: 05/17/16 Status: Ordered Zofran 4 mg, Route: IVP, Drug form: INJ, ONCE, Dosing Weight 143.636, kg, Priority: STA T, Start date: 05/13/16 10:06:00 GLAZE MAKER, Stop date: 05/13/16 10:06:00 GLAZE MAKER Start Date: 05/13/16 Stop Date: 05/13/16 Status: Completed Results ELECTROLYTES Most recent to 1 2 oldest [Reference Range]: Sodium Lvl [135-145 140 mEq/L mEq/L] (05/13/16 9:15 AM) Potassium Lvl 4.1 mEq/L [3.5-5.1 mEq/L] (05/13/16 9:15 AM) Chloride Lvl [95-109 107 mEq/L mEq/L] (05/13/16 9:15 AM) CO2 [24-32 mEq/L] 25 mEq/L (05/13/16 9:15 AM) AGAP [10.0-20.0 12.1 mEq/L mEq/L] (05/13/16 9:15 AM) CHEM PANEL Most recent to 1 2 oldest [Reference Range]: Creatinine Lvl 1.00 mg/dL [0.50-1.40 mg/dL] (05/13/16 9:15 AM) eGFR 71 mL/min/1.73m2 1 *NA* (05/13/16 9:15 AM) BUN [7-22 mg/dL] 14 mg/dL (05/13/16 9:15 AM) B/C Ratio [6-25] 14 (05/13/16 9:15 AM) Glucose Lvl [70-99 97 mg/dL mg/dL] (05/13/16 9:15 AM) Total Protein 7.0 g/dL [6.4-8.4 g/dL] (05/13/16 9:15 AM) Albumin Lvl [3.5-5.0 3.4 g/dL g/dL] *LOW* (05/13/16:15 AM) Globulin [2.7-4.2 3.6 g/dL g/dL] (05/13/16 9:15 AM) A/G Ratio [0.7-1.6] 0.9 (05/13/16 9:15 AM) Calcium Lvl 8.2 mg/dL [8.5-10.5 mg/dL] *LOW* (05/13/16 9:15 AM) ALT [0-65 unit/L] 68 unit/L *HI* (05/13/16 9:15 AM) AST [0-37 unit/L] 48 unit/L *HI* (05/13/16 9:15 AM) Alk Phos [39-136 112 unit/L unit/L] (05/13/16 9:15 AM) Bili Total [0.2-1.3 0.5 mg/dL mg/dL] (05/13/16 9:15 AM) Lactic Acid Lvl 0.6 mMol/L [0.5-2.2 mMol/L] (05/13/16 11:15 AM) Procalcitonin Lvl 0.08 ng/mL [0.00-0.10 ng/mL] (05/13/16 9:15 AM) 1Result Comment: The eGFR is calculated [...] 2 oldest [Reference Range]: Total CK [12-191 44 unit/L unit/L] (05/13/16 9:15 AM) CK MB [0.5-3.6 0.6 ng/mL ng/mL] (05/13/16 9:15 AM) CK MB Index 1.4 [0.0-2.5] (05/13/16 9:15 AM) Troponin-I <0.02 ng/mL <0.02 ng/mL [0.00-0.40 ng/mL] (05/13/16 1:56 PM) (05/13/16 9:15 AM) ENDOCRINOLOGY Most recent to 1 2 oldest [Reference Range]: S Preg [Negative] Negative *NA* (05/13/16 9:15 AM) URINE AND STOOL Most recent to 1 2 oldest [Reference Range]: UA Turbidity [Clear] Clear (05/13/16 12:13 PM) UA Color [Yellow] Yellow *NA* (05/13/16 12:13 PM) UA pH [5.0-8.0] 5.0 (05/13/16 12:13 PM) UA Spec Grav 1.024 [<=1.030] (05/13/16 12:13 PM) UA Glucose [Negative Negative mg/dL mg/dL] *NA* (05/13/16 12:13 PM) UA Blood [Negative] Negative (05/13/16 12:13 PM) UA Ketones [Negative Negative mg/dL mg/dL] *NA* (05/13/16 12:13 PM) UA Protein [Negative Negative mg/dL mg/dL] (05/13/16 12:13 PM) UA Urobilinogen <=1.0 mg/dL [0.1-1.0 mg/dL] *NA* (05/13/16 12:13 PM) UA Bili [Negative] Negative *NA* (05/13/16 12:13 PM) UA Leuk Est Moderate [Negative] *ABN* (05/13/16 12:13 PM) UA Nitrite Negative [Negative] (05/13/16 12:13 PM) UA WBC [0-5 /HPF] 5 /HPF (05/13/16 12:13 PM) UA Bacteria [None Occasional /HPF Seen /HPF] *NA* (05/13/16 12:13 PM) UA Sq Epi [Few /LPF] Moderate /LPF *ABN* (05/13/16 12:13 PM) IMMUNOLOGY Most recent to 1 2 oldest [Reference Range]: Cotton Scr [Negative] Negative (05/13/16 12:16 PM) HEMATOLOGY Most recent to 1 2 oldest [Reference Range]: WBC [3.7-10.4 K/CMM] 8.8 K/CMM (05/13/16 9:15 AM) RBC [4.20-5.40 4.32 M/CMM M/CMM] (05/13/16 9:15 AM) Hgb [12.0-16.0 g/dL] 11.3 g/dL *LOW* (05/13/16 9:15 AM) Hct [36.0-48.0 %] 34.6 % *LOW* (05/13/16 9:15 AM) MCV [80.0-98.0 fL] 80.1 fL (05/13/16 9:15 AM) MCH [27.0-31.0 pg] 26.2 pg *LOW* (05/13/16 9:15 AM) MCHC [32.0-36.0 32.7 g/dL g/dL] (05/13/16 9:15 AM) RDW [11.5-14.5 %] 18.5 % *HI* (05/13/16 9:15 AM) Platelet [133-450 231 K/CMM K/CMM] (05/13/16 9:15 AM) MPV [7.4-10.4 fL] 8.3 fL (05/13/16 9:15 AM) Segs [45.0-75.0 %] 37.0 % *LOW* (05/13/16 9:15 AM) Bands [0.0-11.0 %] 0.0 % (05/13/16 9:15 AM) Lymphocytes 48.0 % [20.0-40.0 %] *HI* (05/13/16 9:15 AM) Atypical Lymphs 2.0 % [<=0.0 %] *HI* (05/13/16 9:15 AM) Monocytes [2.0-12.0 10.0 % %] (05/13/16 9:15 AM) Eosinophils [0.0-4.0 3.0 % %] (05/13/16 9:15 AM) Segs-Bands # 3.3 K/CMM [1.5-8.1 K/CMM] (05/13/16 9:15 AM) Lymphocytes # 4.4 K/CMM [1.0-5.5 K/CMM] (05/13/16 9:15 AM) Monocytes # [0.0-0.8 0.9 K/CMM K/CMM] *HI* (05/13/16 9:15 AM) Eosinophils # 0.3 K/CMM [0.0-0.5 K/CMM] (05/13/16 9:15 AM) Polychrom Slight *Unknown* (05/13/16 9:15 AM) Plt Morph Normal (05/13/16 9:15 AM) PT [12.0-14.7 13.5 seconds seconds] (05/13/16 9:15 AM) INR [0.85-1.17] 1.01 (05/13/16 9:15 AM) PTT [22.9-35.8 27.2 seconds seconds] (05/13/16 9:15 AM) VIRAL - SEROLOGY Most recent to 1 2 oldest [Reference Range]: Influ A [Negative] Negative (05/13/16 9:15 AM) Influ B [Negative] Negative (05/13/16 9:15 AM) Immunizations No data available for this [...]
--- OUTSIDE RECORDS SUMMARY | 2018-11-19 23:03 | XMS REPORT | Summary of Care ---
Author Author [facility] Organization [facility] Address Unknown Phone Unavailable Encounter MARGARET Olson(ARY) [id number] Date(s): 05/17/16 - 05/17/16 [facility] [address] [place] [address]- Discharge Diagnosis: Abdominal pain Discharge Diagnosis: Acute UTI Discharge Disposition: Home or Self Care Attending Physician: Alda Burdick DO Vital Signs Most recent to 1 2 oldest [Reference Range]: Height 175.26 cm (05/17/16 3:03 AM) Temperature Oral 98.7 DegF 98.8 DegF [96.4-99.1 DegF] (05/17/16 5:29 AM) (05/17/16 3:03 AM) Blood Pressure 122/86 mmHg 120/84 mmHg [90-140/60-90 mmHg] (05/17/16 5:29 AM) (05/17/16 3:03 AM) Respiratory Rate 18 BRMIN 20 BRMIN [14-20 BRMIN] (05/17/16 5:29 AM) (05/17/16 3:03 AM) Peripheral Pulse 82 bpm 102 bpm Rate [60-100 bpm] (05/17/16 5:29 AM) *HI* (05/17/16 3:03 AM) Weight 136.364 kg (05/17/16 3:03 AM) Body Mass Index 44.4 m2 (05/17/16 3:03 AM) Problem List Condition Effective Dates Status Health Status Informant Anemia(Confirmed) Active Ankle Active fracture(Confirmed) Anxiety(Confirmed) Active Asthma(Confirmed) Active Asthma(Confirmed) Resolved Active section(Confirmed) DVT - Deep vein Resolved thrombosis(Confirmed )1 PE - Pulmonary Active embolism(Confirmed) Pneumonia(Confirmed) Resolved Schizophrenia(Confir Active med) Sleep Active apnea(Confirmed) 1lung Allergies, Adverse Reactions, Alerts Substance Reaction Severity Status NKDA Active Medications ketOROLAC 15 mg, Route: IVP, Drug form: INJ, ONCE, Dosing Weight 136.364, kg, Priority: ST AT, Start date: 05/17/16 3:24:00 BOX TOE BUFFER, Stop date: 05/17/16 3:24:00 BOX TOE BUFFER Start Date: 05/17/16 Stop Date: 05/17/16 Status: Completed ketOROLAC 10 mg oral tablet 10 mg=1 tab, PO, Q6H, PRN Pain Score 6-10, X 3 day, # 12 tab, 0 Refill(s) Start Date: 05/17/16 Stop Date: 05/20/16 Status: Ordered Results ELECTROLYTES Most recent to 1 oldest [Reference Range]: Sodium Lvl [135-145 142 mEq/L mEq/L] (05/17/16 3:38 AM) Potassium Lvl 3.7 mEq/L [3.5-5.1 mEq/L] (05/17/16 3:38 AM) Chloride Lvl [95-109 109 mEq/L mEq/L] (05/17/16 3:38 AM) CO2 [24-32 mEq/L] 25 mEq/L (05/17/16 3:38 AM) AGAP [10.0-20.0 11.7 mEq/L mEq/L] (05/17/16 3:38 AM) CHEM PANEL Most recent to 1 oldest [Reference Range]: Creatinine Lvl 0.79 mg/dL [0.50-1.40 mg/dL] (05/17/16 3:38 AM) eGFR 95 mL/min/1.73m2 1 *NA* (05/17/16 3:38 AM) BUN [7-22 mg/dL] 13 mg/dL (05/17/16 3:38 AM) B/C Ratio [6-25] 16 (05/17/16 3:38 AM) Glucose Lvl [70-99 99 mg/dL mg/dL] (05/17/16 3:38 AM) Total Protein 7.3 g/dL [6.4-8.4 g/dL] (05/17/16 3:38 AM) Albumin Lvl [3.5-5.0 3.4 g/dL g/dL] *LOW* (05/17/16 3:38 AM) Globulin [2.7-4.2 3.9 g/dL g/dL] (05/17/16 3:38 AM) A/G Ratio [0.7-1.6] 0.9 (05/17/16 3:38 AM) Calcium Lvl 8.8 mg/dL [8.5-10.5 mg/dL] (05/17/16 3:38 AM) ALT [0-65 unit/L] 50 unit/L (05/17/16 3:38 AM) AST [0-37 unit/L] 41 unit/L *HI* (05/17/16 3:38 AM) Alk Phos [39-136 111 unit/L unit/L] (05/17/16 3:38 AM) Bili Total [0.2-1.3 0.4 mg/dL mg/dL] (05/17/16 3:38 AM) Lipase Lvl [73-393 228 unit/L unit/L] (05/17/16 3:38 AM) 1Result Comment: The eGFR is calculated [...] [Reference Range]: Troponin-I <0.02 ng/mL [0.00-0.40 ng/mL] (05/17/16 4:31 AM) URINE CHEM Most recent to 1 oldest [Reference Range]: U Preg [Negative] Negative (05/17/16 3:53 AM) URINE AND STOOL Most recent to 1 oldest [Reference Range]: UA Turbidity [Clear] Slight *ABN* (05/17/16 3:53 AM) UA Color [Yellow] Yellow *NA* (05/17/16 3:53 AM) UA pH [5.0-8.0] 5.0 (05/17/16 3:53 AM) UA Spec Grav 1.023 [<=1.030] (05/17/16 3:53 AM) UA Glucose [Negative Negative mg/dL mg/dL] *NA* (05/17/16 3:53 AM) UA Blood [Negative] Negative (05/17/16 3:53 AM) UA Ketones [Negative Negative mg/dL mg/dL] *NA* (05/17/16 3:53 AM) UA Protein [Negative Negative mg/dL mg/dL] (05/17/16 3:53 AM) UA Urobilinogen <=1.0 mg/dL [0.1-1.0 mg/dL] *NA* (05/17/16 3:53 AM) UA Bili [Negative] Negative *NA* (05/17/16 3:53 AM) UA Leuk Est Moderate [Negative] *ABN* (05/17/16 3:53 AM) UA Nitrite Negative [Negative] (05/17/16 3:53 AM) UA WBC [0-5 /HPF] 11 /HPF *HI* (05/17/16 3:53 AM) UA RBC [0-2 /HPF] 8 /HPF *HI* (05/17/16 3:53 AM) UA Sq Epi [Few /LPF] Many /LPF *ABN* (05/17/16 3:53 AM) UA Mucus [None Seen Few /LPF /LPF] *NA* (05/17/16 3:53 AM) UA Trans Epi [<=0 1 /LPF /LPF] *HI* (05/17/16 3:53 AM) HEMATOLOGY Most recent to 1 oldest [Reference Range]: WBC [3.7-10.4 K/CMM] 7.5 K/CMM (05/17/16 3:38 AM) RBC [4.20-5.40 4.45 M/CMM M/CMM] (05/17/16 3:38 AM) Hgb [12.0-16.0 g/dL] 11.5 g/dL *LOW* (05/17/16 3:38 AM) Hct [36.0-48.0 %] 35.5 % *LOW* (05/17/16 3:38 AM) MCV [80.0-98.0 fL] 79.7 fL *LOW* (05/17/16 3:38 AM) MCH [27.0-31.0 pg] 25.8 pg *LOW* (05/17/16 3:38 AM) MCHC [32.0-36.0 32.4 g/dL g/dL] (05/17/16 3:38 AM) RDW [11.5-14.5 %] 18.7 % *HI* (05/17/16 3:38 AM) Platelet [133-450 238 K/CMM K/CMM] (05/17/16 3:38 AM) MPV [7.4-10.4 fL] 7.8 fL (05/17/16 3:38 AM) Segs [45.0-75.0 %] 49.1 % (05/17/16 3:38 AM) Lymphocytes 40.9 % [20.0-40.0 %] *HI* (05/17/16 3:38 AM) Monocytes [2.0-12.0 7.5 % %] (05/17/16 3:38 AM) Eosinophils [0.0-4.0 1.6 % %] (05/17/16 3:38 AM) Basophils [0.0-1.0 0.9 % %] (05/17/16 3:38 AM) Segs-Bands # 3.7 K/CMM [1.5-8.1 K/CMM] (05/17/16 3:38 AM) Lymphocytes # 3.1 K/CMM [1.0-5.5 K/CMM] (05/17/16 3:38 AM) Monocytes # [0.0-0.8 0.6 K/CMM K/CMM] (05/17/16 3:38 AM) Eosinophils # 0.1 K/CMM [0.0-0.5 K/CMM] (05/17/16 3:38 AM) Basophils # [0.0-0.2 0.1 K/CMM K/CMM] (05/17/16 3:38 AM) Immunizations No data available for this [...]
--- OUTSIDE RECORDS SUMMARY | 2018-11-19 23:03 | XMS REPORT | Summary of Care ---
Author Author [facility] Organization [facility] Address Unknown Phone Unavailable Encounter MARGARET Olson(ARY) [id number] Date(s): 03/08/16 - 04/06/16 [facility] [address] [place] [address]- Discharge Disposition: Home or Self Care Attending Physician: Luis Felipe Haddad MD Referring Physician: Luis Felipe Haddad MD Vital Signs No data available for [...]
--- OUTSIDE RECORDS SUMMARY | 2018-11-19 23:03 | XMS REPORT | Summary of Care ---
Author Author [facility] Organization [facility] Address Unknown Phone Unavailable Encounter MARGARET Olson(ARY) [id number] Date(s): 12/20/15 - 12/20/15 [facility] [address] [place] [address]- Discharge Diagnosis: Abdominal pain, acute, right lower quadrant Discharge Disposition: Home Attending Physician: Mani Santa MD Vital Signs Most recent to 1 2 oldest [Reference Range]: Height 172.72 cm (12/20/15 12:28 AM) Temperature Oral 98.2 DegF 98.3 DegF [96.4-99.1 DegF] (12/20/15 3:24 AM) (12/20/15 12:28 AM) Blood Pressure 126/72 mmHg 125/77 mmHg [90-140/60-90 mmHg] (12/20/15 3:24 AM) (12/20/15 12:28 AM) Respiratory Rate 16 BRMIN 18 BRMIN [14-20 BRMIN] (12/20/15 3:24 AM) (12/20/15 12:28 AM) Peripheral Pulse 85 bpm 105 bpm Rate [60-100 bpm] (12/20/15 3:24 AM) *HI* (12/20/15 12:28 AM) Weight 140 kg (12/20/15 12:28 AM) Body Mass Index 46.93 m2 (12/20/15 12:28 AM) Problem List Condition Effective Dates Status Health Status Informant Anemia(Confirmed) Active Ankle Active fracture(Confirmed) Anxiety(Confirmed) Active Asthma(Confirmed) Active Asthma(Confirmed) Resolved Active section(Confirmed) DVT - Deep vein Resolved thrombosis(Confirmed )1 PE - Pulmonary Active embolism(Confirmed) Pneumonia(Confirmed) Resolved Schizophrenia(Confir Active med) Sleep Active apnea(Confirmed) 1lung Allergies, Adverse Reactions, Alerts Substance Reaction Severity Status NKDA Active Medications Sodium Chloride 0.9% (Bolus) IV 1,000 mL, 1,000 ml/hr, Infuse Over: 1 hr, Route: IV, 1,000, Drug form: INJ, ONCE , Priority: STAT, Dosing Weight 140 kg, Start date: 12/20/15 2:16:00 CDT, Durati on: 1 doses or times, Stop date: 12/20/15 2:16:00 CDT Start Date: 12/20/15 Stop Date: 12/20/15 Status: Completed Results ELECTROLYTES Most recent to 1 oldest [Reference Range]: Sodium Lvl [135-145 141 mEq/L mEq/L] (12/20/15 1:23 AM) Potassium Lvl 3.9 mEq/L [3.5-5.1 mEq/L] (12/20/15 1:23 AM) Chloride Lvl [95-109 106 mEq/L mEq/L] (12/20/15 1:23 AM) CO2 [24-32 mEq/L] 26 mEq/L (12/20/15 1:23 AM) AGAP [10.0-20.0 12.9 mEq/L mEq/L] (12/20/15 1:23 AM) CHEM PANEL Most recent to 1 oldest [Reference Range]: Creatinine Lvl 1.02 mg/dL [0.50-1.40 mg/dL] (12/20/15 1:23 AM) eGFR 69 mL/min/1.73m2 1 *NA* (12/20/15 1:23 AM) BUN [7-22 mg/dL] 11 mg/dL (12/20/15 1:23 AM) B/C Ratio [6-25] 11 (12/20/15 1:23 AM) Glucose Lvl [70-99 92 mg/dL mg/dL] (12/20/15 1:23 AM) Total Protein 7.3 g/dL [6.4-8.4 g/dL] (12/20/15 1:23 AM) Albumin Lvl [3.5-5.0 3.3 g/dL g/dL] *LOW* (12/20/15 1:23 AM) Globulin [2.0-4.0 4.0 g/dL g/dL] (12/20/15 1:23 AM) A/G Ratio [0.7-1.6] 0.8 (12/20/15 1:23 AM) Calcium Lvl 8.7 mg/dL [8.5-10.5 mg/dL] (12/20/15 1:23 AM) ALT [0-65 unit/L] 27 unit/L (12/20/15 1:23 AM) AST [0-37 unit/L] 17 unit/L (12/20/15 1:23 AM) Alk Phos [39-136 110 unit/L unit/L] (12/20/15 1:23 AM) Bili Total [0.2-1.3 0.3 mg/dL mg/dL] (12/20/15 1:23 AM) 1Result Comment: The eGFR is calculated [...] oldest [Reference Range]: U Preg [Negative] Negative (12/20/15 1:23 AM) URINE AND STOOL Most recent to 1 oldest [Reference Range]: UA Turbidity [Clear] Clear (12/20/15 1:23 AM) UA Color [Yellow] Yellow *NA* (12/20/15 1:23 AM) UA pH [5.0-8.0] 5.0 (12/20/15 1:23 AM) UA Spec Grav 1.026 [<=1.030] (12/20/15 1:23 AM) UA Glucose [Negative Negative mg/dL mg/dL] *NA* (12/20/15 1:23 AM) UA Blood [Negative] Large *ABN* (12/20/15 1:23 AM) UA Ketones [Negative Trace mg/dL mg/dL] *ABN* (12/20/15 1:23 AM) UA Protein [Negative Negative mg/dL mg/dL] (12/20/15 1:23 AM) UA Urobilinogen <=1.0 mg/dL [0.1-1.0 mg/dL] *NA* (12/20/15 1:23 AM) UA Bili [Negative] Negative *NA* (12/20/15 1:23 AM) UA Leuk Est Small [Negative] *ABN* (12/20/15 1:23 AM) UA Nitrite Negative [Negative] (12/20/15 1:23 AM) UA WBC [0-5 /HPF] 2 /HPF (12/20/15 1:23 AM) UA RBC [0-2 /HPF] 3 /HPF *HI* (12/20/15 1:23 AM) UA Bacteria [None Occasional /HPF Seen /HPF] *NA* (12/20/15 1:23 AM) UA Sq Epi [Few /LPF] Occasional /LPF *NA* (12/20/15 1:23 AM) UA Mucus [None Seen Many /LPF /LPF] *ABN* (12/20/15 1:23 AM) HEMATOLOGY Most recent to 1 oldest [Reference Range]: WBC [3.7-10.4 K/CMM] 16.6 K/CMM *HI* (12/20/15 1:23 AM) RBC [4.20-5.40 4.87 M/CMM M/CMM] (12/20/15 1:23 AM) Hgb [12.0-16.0 g/dL] 13.0 g/dL (12/20/15 1:23 AM) Hct [36.0-48.0 %] 39.6 % (12/20/15 1:23 AM) MCV [80.0-98.0 fL] 81.3 fL (12/20/15 1:23 AM) MCH [27.0-31.0 pg] 26.8 pg *LOW* (12/20/15 1:23 AM) MCHC [32.0-36.0 32.9 g/dL g/dL] (12/20/15 1:23 AM) RDW [11.5-14.5 %] 14.3 % (12/20/15 1:23 AM) Platelet [133-450 309 K/CMM K/CMM] (12/20/15 1:23 AM) MPV [7.4-10.4 fL] 8.2 fL (12/20/15 1:23 AM) Segs [45.0-75.0 %] 79.3 % *HI* (12/20/15 1:23 AM) Lymphocytes 15.4 % [20.0-40.0 %] *LOW* (12/20/15 1:23 AM) Monocytes [2.0-12.0 3.5 % %] (12/20/15 1:23 AM) Eosinophils [0.0-4.0 0.7 % %] (12/20/15 1:23 AM) Basophils [0.0-1.0 1.1 % %] *HI* (12/20/15 1:23 AM) Segs-Bands # 13.1 K/CMM [1.5-8.1 K/CMM] *HI* (12/20/15 1:23 AM) Lymphocytes # 2.5 K/CMM [1.0-5.5 K/CMM] (12/20/15 1:23 AM) Monocytes # [0.0-0.8 0.6 K/CMM K/CMM] (12/20/15 1:23 AM) Eosinophils # 0.1 K/CMM [0.0-0.5 K/CMM] (12/20/15 1:23 AM) Basophils # [0.0-0.2 0.2 K/CMM K/CMM] (12/20/15 1:23 AM) Immunizations No data available for this [...]
--- OUTSIDE RECORDS SUMMARY | 2018-11-19 23:03 | XMS REPORT | Summary of Care ---
Author Author [facility] Organization [facility] Address Unknown Phone Unavailable Encounter MARGARET Olson(ARY) [phone] Date(s): 04/19/16 - 04/20/16 [facility] [address] [place] [address]- Discharge Diagnosis: Pain, dental Discharge Diagnosis: Acute thoracic back pain Discharge Disposition: Home or Self Care Attending Physician: Smita Pate MD Vital Signs 1 2 3 Most recent to oldest [Reference Range]: 175.26 cm (04/19/16 7:58 PM) Height 99.2 DegF *HI* (04/20/16 12:11 AM) 98 DegF (04/19/16 9:50 PM) 98.7 DegF (04/19/16 7:58 PM) Temperature Oral [96.4-99.1 DegF] 122/75 mmHg (04/20/16 12:11 AM) 110/69 mmHg (04/19/16 9:50 PM) 108/74 mmHg (04/19/16 7:58 PM) Blood Pressure [90-140/60-90 mmHg] 18 BRMIN (04/20/16 12:11 AM) 18 BRMIN (04/19/16 9:50 PM) 18 BRMIN (04/19/16 7:58 PM) Respiratory Rate [14-20 BRMIN] 92 bpm (04/20/16 12:11 AM) 110 bpm *HI* (04/19/16 9:50 PM) 114 bpm *HI* (04/19/16 7:58 PM) Peripheral Pulse Rate [60-100 bpm] 140.909 kg (04/19/16 7:58 PM) Weight 45.87 m2 (04/19/16 7:58 PM) Body Mass Index Problem List Condition Effective Dates Status Health Status Informant Anemia(Confirmed) Active Ankle Active fracture(Confirmed) Anxiety(Confirmed) Active Asthma(Confirmed) Active Asthma(Confirmed) Resolved Active section(Confirmed) DVT - Deep vein Resolved thrombosis(Confirmed )1 PE - Pulmonary Active embolism(Confirmed) Pneumonia(Confirmed) Resolved Schizophrenia(Confir Active med) Sleep Active apnea(Confirmed) 1lung Allergies, Adverse Reactions, Alerts Substance Reaction Severity Status NKDA Active Medications amoxicillin 500 mg oral tablet 500 mg=1 tab, PO, TID, X 10 day, # 30 tab, 0 Refill(s) Start Date: 04/20/16 Stop Date: 04/30/16 Status: Ordered [place] 10/325 oral tablet 1 tab, Route: PO, Drug Form: TAB, Dosing Weight 140.909, kg, ONCE, STAT, Start d ate: 04/19/16 21:59:00 [employer], Stop date: 04/19/16 21:59:00 [employer] Notes: Do not exceed 4gm/day of acetaminophen. (Same as: [place] 325/10) Start Date: 04/19/16 Stop Date: 04/19/16 Status: Completed NS (Bolus) IV 1,000 mL, 1,000 ml/hr, Infuse Over: 1 hr, Route: IV, 1,000, Drug form: INJ, ONCE , Priority: STAT, Dosing Weight 140.909 kg, Start date: 04/19/16 21:59:00 [employer], D uration: 1 doses or times, Stop date: 04/19/16 21:59:00 [employer] Start Date: 04/19/16 Stop Date: 04/19/16 Status: Completed Tylenol with Codeine #4 oral tablet 1 tab, PO, Q4H, PRN Pain, X 7 day, # 12 tab, 0 Refill(s) Start Date: 04/20/16 Stop Date: 04/27/16 Status: Ordered Results ELECTROLYTES Most recent to 1 oldest [Reference Range]: Sodium Lvl [135-145 140 mEq/L mEq/L] (04/19/16 10:27 PM) Potassium Lvl 3.7 mEq/L [3.5-5.1 mEq/L] (04/19/16 10:27 PM) Chloride Lvl [95-109 106 mEq/L mEq/L] (04/19/16 10:27 PM) CO2 [24-32 mEq/L] 26 mEq/L (04/19/16 10:27 PM) AGAP [10.0-20.0 11.7 mEq/L mEq/L] (04/19/16 10: PM) CHEM PANEL Most recent to 1 oldest [Reference Range]: Creatinine Lvl 0.93 mg/dL [0.50-1.40 mg/dL] (04/19/16 10:27 PM) eGFR 78 mL/min/1.73m2 1 *NA* (04/19/16: PM) BUN [7-22 mg/dL] 11 mg/dL (04/19/16 10: PM) B/C Ratio [6-25] 12 (04/19/16: PM) Glucose Lvl [70-99 97 mg/dL mg/dL] (04/19/16: PM) Total Protein 7.5 g/dL [6.4-8.4 g/dL] (04/19/16 10: PM) Albumin Lvl [3.5-5.0 3.2 g/dL g/dL] *LOW* (04/19/16: PM) Globulin [2.7-4.2 4.3 g/dL g/dL] *HI* (04/19/16 10: PM) A/G Ratio [0.7-1.6] 0.7 (04/19/16: PM) Calcium Lvl 8.5 mg/dL [8.5-10.5 mg/dL] (04/19/16 10:27 PM) ALT [0-65 unit/L] 32 unit/L (04/19/16:27 PM) AST [0-37 unit/L] 30 unit/L (04/19/16 10:27 PM) Alk Phos [39-136 103 unit/L unit/L] (04/19/16 10:27 PM) Bili Total [0.2-1.3 0.4 mg/dL mg/dL] (04/19/16 10: PM) Lactic Acid Lvl 0.8 mMol/L [0.5-2.2 mMol/L] (04/19/16 10:27 PM) 1Result Comment: The eGFR is calculated [...] oldest [Reference Range]: U Preg [Negative] Negative (04/19/16: PM) URINE AND STOOL Most recent to 1 oldest [Reference Range]: UA Turbidity [Clear] Clear (04/19/16:04 PM) UA Color [Yellow] Yellow *NA* (04/19/16: PM) UA pH [5.0-8.0] 7.0 (04/19/16:04 PM) UA Spec Grav 1.024 [<=1.030] (04/19/16:04 PM) UA Glucose [Negative Negative mg/dL mg/dL] *NA* (04/19/16: PM) UA Blood [Negative] Small *ABN* (04/19/16:04 PM) UA Ketones [Negative Negative mg/dL mg/dL] *NA* (04/19/16: PM) UA Protein [Negative Negative mg/dL mg/dL] (04/19/16: PM) UA Urobilinogen <=1.0 mg/dL [0.1-1.0 mg/dL] *NA* (04/19/16:04 PM) UA Bili [Negative] Negative *NA* (04/19/16 PM) UA Leuk Est Trace [Negative] *ABN* (04/19/16:04 PM) UA Nitrite Negative [Negative] (04/19/16 11:04 PM) UA WBC [0-5 /HPF] 3 /HPF (04/19/16:04 PM) UA RBC [0-2 /HPF] 24 /HPF *HI* (04/19/16 11:04 PM) UA Sq Epi [Few /LPF] Few /LPF *NA* (04/19/16 11:04 PM) UA Mucus [None Seen Few /LPF /LPF] *NA* (04/19/16 11:04 PM) HEMATOLOGY Most recent to 1 oldest [Reference Range]: WBC [3.7-10.4 K/CMM] 6.7 K/CMM (04/19/16 10:27 PM) RBC [4.20-5.40 4.72 M/CMM M/CMM] (04/19/16 10:27 PM) Hgb [12.0-16.0 g/dL] 12.3 g/dL (04/19/16 10:27 PM) Hct [36.0-48.0 %] 36.8 % (04/19/16 10:27 PM) MCV [80.0-98.0 fL] 77.9 fL *LOW* (04/19/16 10:27 PM) MCH [27.0-31.0 pg] 26.1 pg *LOW* (04/19/16 10:27 PM) MCHC [32.0-36.0 33.5 g/dL g/dL] (04/19/16 10:27 PM) RDW [11.5-14.5 %] 15.6 % *HI* (04/19/16 10:27 PM) Platelet [133-450 252 K/CMM K/CMM] (04/19/16 10:27 PM) MPV [7.4-10.4 fL] 8.3 fL (04/19/16 10:27 PM) Segs [45.0-75.0 %] 60.8 % (04/19/16 10:27 PM) Lymphocytes 27.9 % [20.0-40.0 %] (04/19/16 10:27 PM) Monocytes [2.0-12.0 7.2 % %] (04/19/16 10:27 PM) Eosinophils [0.0-4.0 2.9 % %] (04/19/16 10:27 PM) Basophils [0.0-1.0 1.2 % %] *HI* (04/19/16 10:27 PM) Segs-Bands # 4.1 K/CMM [1.5-8.1 K/CMM] (04/19/16 10:27 PM) Lymphocytes # 1.9 K/CMM [1.0-5.5 K/CMM] (04/19/16 10:27 PM) Monocytes # [0.0-0.8 0.5 K/CMM K/CMM] (04/19/16 10:27 PM) Eosinophils # 0.2 K/CMM [0.0-0.5 K/CMM] (04/19/16 10:27 PM) Basophils # [0.0-0.2 0.1 K/CMM K/CMM] (04/19/16 10:27 PM) Microcyte [None 1+ Seen] *ABN* (04/19/16 10:27 PM) VIRAL - SEROLOGY Most recent to 1 oldest [Reference Range]: Influ A [Negative] Negative (04/19/16 9:06 PM) Influ B [Negative] Negative (04/19/16 9:06 PM) Immunizations No data available for this [...]
--- OUTSIDE RECORDS SUMMARY | 2018-11-19 23:04 | XMS REPORT ---
[facility] Address Unknown Phone Unavailable Care Team Providers Care Pharmacy Specialist Name Role Phone Unavailable Unavailable Payers Payer Name Policy Type Policy Number Effective Date Expiration Date Problems This patient has no known problems. Allergies, Adverse Reactions, Alerts Allergy Name Allergy Type Status Severity Reaction(s) Onset Date Inactive Date Treating Clinician Comments No Known Allergies DA Active U 2018-10-28 00:00:00 No Known Allergies DA Active U 2018-10-03 00:00:00 No Known Contrast Allergies DA Active U 2006-07-15 00:00:00 No Known Drug Allergies DA Active U 2006-07-15 00:00:00 No Known Food Allergies DA Active U 2006-07-15 00:00:00 No Known Other Allergies DA Active U 2006-07-15 00:00:00 Medications This patient has no known medications. Encounters Start Date/Time End Date/Time Encounter Type Admission Type Attending [facility] Care Facility Care Department Encounter ID 2018-09-28 18:44:00 2018-09-28 18:44:00 Emergency E [facility] [id number] 2017-09-29 14:24:00 2017-09-29 14:[id number] Results Test Description Test Time Test Comments Text Results Atomic Results Result Comments COMPREHENSIVE METABOLIC PANEL 2018-11-04 16:08:00 SODIUM (test code=NA) 140 mmol/L 136-145 POTASSIUM (test code=K) 3.8 mmol/L 3.5-5.1 CHLORIDE (test code=CL) 107.0 mmol/L 98-107 CARBON DIOXIDE (test code=CO2) 22.0 mmol/L 21-32 ANION GAP (test code=GAP) 14.8 10-20 GLUCOSE (test code=GLU) 100 mg/dL 74-106 BLOOD UREA NITROGEN (test code=BUN) 14 mg/dL 7-18 GLOMERULAR FILTRATION RATE (test code=GFR) > 60 mL/min >=60 Estimated GFR by using Modified MDRD formula.Chronic kidney disease is defined as either kidney damageor GFR <60 mL/min/1.73 m2 for >3 months. CREATININE (test code=CREAT) 0.80 mg/dL 0.55-1.02 Note change in reference range due to change in reagent. BUN/CREATININE RATIO (test code=BUN/CREA) 17.5 10-20 TOTAL PROTEIN (test code=PROT) 6.9 gram/dL 6.4-8.2 ALBUMIN (test code=ALB) 3.5 g/dL 3.4-5.0 GLOBULIN (test code=GLOB) 3.4 gram/dL 2.7-4.2 ALBUMIN/GLOBULIN RATIO (test code=A/G) 1.0 0.75-1.50 CALCIUM (test code=CA) 8.8 mg/dL 8.5-10.1 BILIRUBIN TOTAL (test code=BILT) 0.50 mg/dL 0.0-1.0 SGOT/AST (test code=AST) 12 IUnit/L 15-37 SGPT/ALT (test code=ALT) 19 IUnit/L 12-78 ALKALINE PHOSPHATASE TOTAL (test code=ALKP) 96 IUnit/L 45-117 Note change in reference range due to change in reagent. [id number] 16:08:00* Test Item Value Reference Range Comments MAGNESIUM (test code=MAG) 2.2 mg/dL 1.8-2.4 HCG SERUM [id number] 16:08:00* Test Item Value Reference Range Comments HCG SERUM QUAL (test code=HCGQL) NEGATIVE NEGATIVE This HCGQL test is NOT applicable for MALE patients.Check with nurse about probable order error.If Tumor Marker Test needed, nurse should order test "HCGTU"(Test #550.26069) ALPHA 1 [id number] 16:08:00* Test Item Value Reference Range Comments ALPHA 1 ANTITRYPSIN (test code=[id number]) 179 mg/dL 90-200 Performed At: DA [facility] [place], [place] [id number] CN Ph:[phone] IMMUNOGLOBULIN [id number] 16:08:00* Test Item Value Reference Range Comments IMMUNOGLOBULIN E (test code=IGE) Unit/mL 0-100 - XR CHEST 2 [id number] 09:53:00 FAX: Wilbur Evans [phone] [place]: St: [facility] FAX: Noah Rivero MD [phone] Name: JAROD MEYERS [facility] : 1975 Age/S: 42/F [address] Unit #: [id number] Loc: V.[address] [place] [address] Phys: Noah Walker MD Acct: [id number] Dis Date: Status: ADM IN PHONE #: [phone] Exam Date: 11/02/2018 0950 FAX #: [phone] Reason: pneumonia EXAMS: CPT CODE: [id number] XR CHEST 2 V 71124 HISTORY: pneumonia TECHNIQUE: PA and lateral chest x-ray COMPARISON: 10/31/18 FINDINGS: No airspace consolidation or pleural effusion. Normal heart size. Mediastinal silhouette is unremarkable. Visualized osseous structures are grossly i ntact. IMPRESSION: No radiographic evidence of acute cardiopulmonary process. at 0976 Reported and signed by: Klarissa mckenna D.O. CC: Wilbur Hardy; Noah Walker MD Technologist: HIEN CHAUHAN(R) Trnscrd Date/Time/By: 11/02/2018 (0953) : By: [email or web address] Orig Print D/ T: S: 11/02/2018 (0905) PAGE 1 Si gned Report URINALYSIS [id number] 22:26:00 * Test Item Value Reference Range Comments UA COLOR (test code=COLU) ORANGE YELLOW UA APPEARANCE (test code=APPU) TURBID CLEAR UA GLUCOSE DIPSTICK (test code=DGLUU) NEGATIVE mg/dL NEGATIVE UA BILIRUBIN DIPSTICK (test code=BILU) NEGATIVE mg/dL NEGATIVE UA KETONE DIPSTICK (test code=KETU) NEGATIVE mg/dL NEGATIVE UA SPECIFIC GRAVITY (test code=SGU) 1.028 1.001-1.035 UA BLOOD DIPSTICK (test code=BRANDIE) Negative mg/dL NEGATIVE UA PH DIPSTICK (test code=CAPRI) 5.5 5.0-8.0 UA PROTEIN DIPSTICK (test code=PROU) 30 (1+) mg/dL NEGATIVE UA UROBILINIOGEN DIPSTICK (test code=URO) Normal mg/dL NEGATIVE UA NITRITE DIPSTICK (test code=OWEN) NEGATIVE NEGATIVE UA LEUKOCYTE ESTERASE W REFLEX (test code=LEUUR) 75 Tami/uL (1+) Tami/uL NEGATIVE UA WBC (test code=WBCU) 6-10 per HPF 0-5 UA RBC (test code=RBCU) 0-2 #/HPF 0-5 UA EPITHELIAL CELLS (test code=EPIU) MANY per HPF FEW UA BACTERIA (test code=BACU) FEW #/HPF NONE UA MUCUS (test code=MUCU) MANY #/LPF FEW URINALYSIS [id number] 22:25:00* Test Item Value Reference Range Comments UA COLOR (test code=COLU) ORANGE YELLOW UA APPEARANCE (test code=APPU) TURBID CLEAR UA GLUCOSE DIPSTICK (test code=DGLUU) NEGATIVE mg/dL NEGATIVE UA BILIRUBIN DIPSTICK (test code=BILU) NEGATIVE mg/dL NEGATIVE UA KETONE DIPSTICK (test code=KETU) NEGATIVE mg/dL NEGATIVE UA SPECIFIC GRAVITY (test code=SGU) 1.028 1.001-1.035 UA BLOOD DIPSTICK (test code=BRANDIE) Negative mg/dL NEGATIVE UA PH DIPSTICK (test code=CAPRI) 5.5 5.0-8.0 UA PROTEIN DIPSTICK (test code=PROU) 30 (1+) mg/dL NEGATIVE UA UROBILINIOGEN DIPSTICK (test code=URO) Normal mg/dL NEGATIVE UA NITRITE DIPSTICK (test code=OWEN) NEGATIVE NEGATIVE UA LEUKOCYTE ESTERASE W REFLEX (test code=LEUUR) 75 Tami/uL (1+) Tami/uL NEGATIVE UA WBC (test code=WBCU) per HPF 0-5 UA RBC (test code=RBCU) per HPF 0-5 UA EPITHELIAL CELLS (test code=EPIU) per HPF Few UA BACTERIA (test code=BACU) per HPF NONE URINALYSIS [id number] 22:25:00* Test Item Value Reference Range Comments UA COLOR (test code=COLU) ORANGE YELLOW UA APPEARANCE (test code=APPU) TURBID CLEAR UA GLUCOSE DIPSTICK (test code=DGLUU) NEGATIVE mg/dL NEGATIVE UA BILIRUBIN DIPSTICK (test code=BILU) NEGATIVE mg/dL NEGATIVE UA KETONE DIPSTICK (test code=KETU) NEGATIVE mg/dL NEGATIVE UA SPECIFIC GRAVITY (test code=SGU) 1.028 1.001-1.035 UA BLOOD DIPSTICK (test code=BRANDIE) Negative mg/dL NEGATIVE UA PH DIPSTICK (test code=CAPRI) 5.5 5.0-8.0 UA PROTEIN DIPSTICK (test code=PROU) 30 (1+) mg/dL NEGATIVE UA UROBILINIOGEN DIPSTICK (test code=URO) Normal mg/dL NEGATIVE UA NITRITE DIPSTICK (test code=OWEN) NEGATIVE NEGATIVE UA LEUKOCYTE ESTERASE W REFLEX (test code=LEUUR) 75 Tami/uL (1+) Tami/uL NEGATIVE UA WBC (test code=WBCU) per HPF 0-5 UA RBC (test code=RBCU) per HPF 0-5 UA EPITHELIAL CELLS (test code=EPIU) per HPF Few UA BACTERIA (test code=BACU) per HPF NONE COMPREHENSIVE METABOLIC [id number] 19:55:00* Test Item Value Reference Range Comments SODIUM (test code=NA) 140 mmol/L 136-145 POTASSIUM (test code=K) 3.8 mmol/L 3.5-5.1 CHLORIDE (test code=CL) 107.0 mmol/L 98-107 CARBON DIOXIDE (test code=CO2) 22.0 mmol/L 21-32 ANION GAP (test code=GAP) 14.8 10-20 GLUCOSE (test code=GLU) 100 mg/dL 74-106 BLOOD UREA NITROGEN (test code=BUN) 14 mg/dL 7-18 GLOMERULAR FILTRATION RATE (test code=GFR) > 60 mL/min >=60 Estimated GFR by using Modified MDRD formula.Chronic kidney disease is defined as either kidney damageor GFR <60 mL/min/1.73 m2 for >3 months. CREATININE (test code=CREAT) 0.80 mg/dL 0.55-1.02 Note change in reference range due to change in reagent. BUN/CREATININE RATIO (test code=BUN/CREA) 17.5 10-20 TOTAL PROTEIN (test code=PROT) 6.9 gram/dL 6.4-8.2 ALBUMIN (test code=ALB) 3.5 g/dL 3.4-5.0 GLOBULIN (test code=GLOB) 3.4 gram/dL 2.7-4.2 ALBUMIN/GLOBULIN RATIO (test code=A/G) 1.0 0.75-1.50 CALCIUM (test code=CA) 8.8 mg/dL 8.5-10.1 BILIRUBIN TOTAL (test code=BILT) 0.50 mg/dL 0.0-1.0 SGOT/AST (test code=AST) 12 IUnit/L 15-37 SGPT/ALT (test code=ALT) 19 IUnit/L 12-78 ALKALINE PHOSPHATASE TOTAL (test code=ALKP) 96 IUnit/L 45-117 Note change in reference range due to change in reagent. [id number] 19:55:00* Test Item Value Reference Range Comments MAGNESIUM (test code=MAG) 2.2 mg/dL 1.8-2.4 HCG SERUM [id number] 19:55:00* Test Item Value Reference Range Comments HCG SERUM QUAL (test code=HCGQL) NEGATIVE NEGATIVE This HCGQL test is NOT applicable for MALE patients.Check with nurse about probable order error.If Tumor Marker Test needed, nurse should order test "HCGTU"(Test #550.83841) ALPHA 1 [id number] 19:55:00* Test Item Value Reference Range Comments ALPHA 1 ANTITRYPSIN (test code=JMHO4RDC) mg/dL IMMUNOGLOBULIN [id number] 19:55:00* Test Item Value Reference Range Comments IMMUNOGLOBULIN E (test code=IGE) Unit/mL 0-100 CBC W/AUTO [id number] 19:53:00* Test Item Value Reference Range Comments WHITE BLOOD CELL (test code=WBC) 15.8 K/mm3 4.5-12.5 RED BLOOD CELL (test code=RBC) 4.38 mill/mm3 3.7-5.2 HEMOGLOBIN (test code=HGB) 11.1 gram/dL 11.5-15.5 HEMATOCRIT (test code=HCT) 36.4 % 36.0-46.0 MEAN CELL VOLUME (test code=MCV) 83.1 fL 80-98 MEAN CELL HGB (test code=MCH) 25.3 picogram 27.0-33.0 MEAN CELL HGB CONCETRATION (test code=MCHC) 30.5 gram/dL 33.0-36.0 RED CELL DISTRIBUTION WIDTH (test code=RDW) 15.7 % 11.6-16.2 RED CELL DISTRIBUTION WIDTH SD (test code=RDW-SD) 47.2 fL 37.0-51.0 PLATELET COUNT (test code=PLT) 261 K/mm3 150-450 MEAN PLATELET VOLUME (test code=MPV) 10.4 fL 6.7-11.0 NEUTROPHIL % (test code=NT%) 75.1 % 39.0-69.0 IMMATURE GRANULOCYTE % (test code=IG%) 0.9 % 0.0-5.0 LYMPHOCYTE % (test code=LY%) 16.9 % 25.0-55.0 MONOCYTE % (test code=MO%) 4.9 % 0.0-10.0 EOSINOPHIL % (test code=EO%) 1.8 % 0.0-5.0 BASOPHIL % (test code=BA%) 0.4 % 0.0-1.0 NUCLEATED RBC % (test code=NRBC%) 0.0 % 0-0 NEUTROPHIL # (test code=NT#) 11.84 K/mm3 1.8-7.7 IMMATURE GRANULOCYTE # (test code=IG#) 0.14 x10 3/uL 0-0.03 LYMPHOCYTE # (test code=LY#) 2.67 K/mm3 1.0-5.0 MONOCYTE # (test code=MO#) 0.77 K/mm3 0-0.8 EOSINOPHIL # (test code=EO#) 0.29 K/mm3 0.0-0.5 BASOPHIL # (test code=BA#) 0.07 K/mm3 0.0-0.2 NUCLEATED RBC # (test code=NRBC#) 0.00 K/mm3 0.0-0.1 MANUAL DIFF REQUIRED (test code=MDIFF) NO, ONLY SCAN NEEDED DIFFERENTIAL [id number] 19:53:00* Test Item Value Reference Range Comments STAIN ACCEPTABILITY (test code=STN ACCEPTABLE) STAIN ACCEPTABLE MORPHOLOGY COMMENT (test code=MOC) NORMAL PLATELET ESTIMATE (test code=PLTEST) ADEQUATE PLATELET MORPHOLOGY (test code=PLTMORPH) NORMAL COMPREHENSIVE METABOLIC [id number] 19:40:00* Test Item Value Reference Range Comments SODIUM (test code=NA) 140 mmol/L 136-145 POTASSIUM (test code=K) 3.8 mmol/L 3.5-5.1 CHLORIDE (test code=CL) 107.0 mmol/L 98-107 CARBON DIOXIDE (test code=CO2) mmol/L 21-32 ANION GAP (test code=GAP) 10-20 GLUCOSE (test code=GLU) mg/dL 74-106 BLOOD UREA NITROGEN (test code=BUN) mg/dL 7-18 GLOMERULAR FILTRATION RATE (test code=GFR) mL/min >=60 CREATININE (test code=CREAT) mg/dL 0.55-1.02 BUN/CREATININE RATIO (test code=BUN/CREA) 10-20 TOTAL PROTEIN (test code=PROT) gram/dL 6.4-8.2 ALBUMIN (test code=ALB) g/dL 3.4-5.0 GLOBULIN (test code=GLOB) gram/dL 2.7-4.2 ALBUMIN/GLOBULIN RATIO (test code=A/G) 0.75-1.50 CALCIUM (test code=CA) mg/dL 8.5-10.1 BILIRUBIN TOTAL (test code=BILT) mg/dL 0.0-1.0 SGOT/AST (test code=AST) IUnit/L 15-37 SGPT/ALT (test code=ALT) IUnit/L 12-78 ALKALINE PHOSPHATASE TOTAL (test code=ALKP) IUnit/L 45-117 [id number] 19:40:00* Test Item Value Reference Range Comments MAGNESIUM (test code=MAG) mg/dL 1.8-2.4 HCG SERUM [id number] 19:40:00* Test Item Value Reference Range Comments HCG SERUM QUAL (test code=HCGQL) NEGATIVE NEGATIVE This HCGQL test is NOT applicable for MALE patients.Check with nurse about probable order error.If Tumor Marker Test needed, nurse should order test "HCGTU"(Test #550.17690) ALPHA 1 [id number] 19:40:00* Test Item Value Reference Range Comments ALPHA 1 ANTITRYPSIN (test code=[id number]) mg/dL IMMUNOGLOBULIN [id number] 19:40:00* Test Item Value Reference Range Comments IMMUNOGLOBULIN E (test code=IGE) Unit/mL 0-100 COMPREHENSIVE METABOLIC [id number] 19:38:00* Test Item Value Reference Range Comments SODIUM (test code=NA) mmol/L 136-145 POTASSIUM (test code=K) mmol/L 3.5-5.1 CHLORIDE (test code=CL) mmol/L 98-107 CARBON DIOXIDE (test code=CO2) mmol/L 21-32 ANION GAP (test code=GAP) 10-20 GLUCOSE (test code=GLU) mg/dL 74-106 BLOOD UREA NITROGEN (test code=BUN) mg/dL 7-18 GLOMERULAR FILTRATION RATE (test code=GFR) mL/min >=60 CREATININE (test code=CREAT) mg/dL 0.55-1.02 BUN/CREATININE RATIO (test code=BUN/CREA) 10-20 TOTAL PROTEIN (test code=PROT) gram/dL 6.4-8.2 ALBUMIN (test code=ALB) g/dL 3.4-5.0 GLOBULIN (test code=GLOB) gram/dL 2.7-4.2 ALBUMIN/GLOBULIN RATIO (test code=A/G) 0.75-1.50 CALCIUM (test code=CA) mg/dL 8.5-10.1 BILIRUBIN TOTAL (test code=BILT) mg/dL 0.0-1.0 SGOT/AST (test code=AST) IUnit/L 15-37 SGPT/ALT (test code=ALT) IUnit/L 12-78 ALKALINE PHOSPHATASE TOTAL (test code=ALKP) IUnit/L 45-117 [id number] 19:38:00* Test Item Value Reference Range Comments MAGNESIUM (test code=MAG) mg/dL 1.8-2.4 HCG SERUM [id number] 19:38:00* Test Item Value Reference Range Comments HCG SERUM QUAL (test code=HCGQL) NEGATIVE NEGATIVE This HCGQL test is NOT applicable for MALE patients.Check with nurse about probable order error.If Tumor Marker Test needed, nurse should order test "HCGTU"(Test #550.95790) ALPHA 1 [id number] 19:38:00* Test Item Value Reference Range Comments ALPHA 1 ANTITRYPSIN (test code=SMBN6IUP) mg/dL IMMUNOGLOBULIN [id number] 19:38:00* Test Item Value Reference Range Comments IMMUNOGLOBULIN E (test code=IGE) Unit/mL 0-100 CBC W/AUTO [id number] 19:00:00* Test Item Value Reference Range Comments WHITE BLOOD CELL (test code=WBC) 15.8 K/mm3 4.5-12.5 RED BLOOD CELL (test code=RBC) 4.38 mill/mm3 3.7-5.2 HEMOGLOBIN (test code=HGB) 11.1 gram/dL 11.5-15.5 HEMATOCRIT (test code=HCT) 36.4 % 36.0-46.0 MEAN CELL VOLUME (test code=MCV) 83.1 fL 80-98 MEAN CELL HGB (test code=MCH) 25.3 picogram 27.0-33.0 MEAN CELL HGB CONCETRATION (test code=MCHC) 30.5 gram/dL 33.0-36.0 RED CELL DISTRIBUTION WIDTH (test code=RDW) 15.7 % 11.6-16.2 RED CELL DISTRIBUTION WIDTH SD (test code=RDW-SD) 47.2 fL 37.0-51.0 PLATELET COUNT (test code=PLT) 261 K/mm3 150-450 MEAN PLATELET VOLUME (test code=MPV) 10.4 fL 6.7-11.0 NEUTROPHIL % (test code=NT%) 75.1 % 39.0-69.0 IMMATURE GRANULOCYTE % (test code=IG%) 0.9 % 0.0-5.0 LYMPHOCYTE % (test code=LY%) 16.9 % 25.0-55.0 MONOCYTE % (test code=MO%) 4.9 % 0.0-10.0 EOSINOPHIL % (test code=EO%) 1.8 % 0.0-5.0 BASOPHIL % (test code=BA%) 0.4 % 0.0-1.0 NUCLEATED RBC % (test code=NRBC%) 0.0 % 0-0 NEUTROPHIL # (test code=NT#) 11.84 K/mm3 1.8-7.7 IMMATURE GRANULOCYTE # (test code=IG#) 0.14 x10 3/uL 0-0.03 LYMPHOCYTE # (test code=LY#) 2.67 K/mm3 1.0-5.0 MONOCYTE # (test code=MO#) 0.77 K/mm3 0-0.8 EOSINOPHIL # (test code=EO#) 0.29 K/mm3 0.0-0.5 BASOPHIL # (test code=BA#) 0.07 K/mm3 0.0-0.2 NUCLEATED RBC # (test code=NRBC#) 0.00 K/mm3 0.0-0.1 MANUAL DIFF REQUIRED (test code=MDIFF) NO, ONLY SCAN NEEDED DIFFERENTIAL [id number] 19:00:00* Test Item Value Reference Range Comments STAIN ACCEPTABILITY (test code=STN ACCEPTABLE) CABOT RINGS (test code=CAB) MORPHOLOGY COMMENT (test code=MOC) PLATELET ESTIMATE (test code=PLTEST) PLATELET MORPHOLOGY (test code=PLTMORPH) CBC W/AUTO [id number] 19:00:00* Test Item Value Reference Range Comments WHITE BLOOD CELL (test code=WBC) 15.8 K/mm3 4.5-12.5 RED BLOOD CELL (test code=RBC) 4.38 mill/mm3 3.7-5.2 HEMOGLOBIN (test code=HGB) 11.1 gram/dL 11.5-15.5 HEMATOCRIT (test code=HCT) 36.4 % 36.0-46.0 MEAN CELL VOLUME (test code=MCV) 83.1 fL 80-98 MEAN CELL HGB (test code=MCH) 25.3 picogram 27.0-33.0 MEAN CELL HGB CONCETRATION (test code=MCHC) 30.5 gram/dL 33.0-36.0 RED CELL DISTRIBUTION WIDTH (test code=RDW) 15.7 % 11.6-16.2 RED CELL DISTRIBUTION WIDTH SD (test code=RDW-SD) 47.2 fL 37.0-51.0 PLATELET COUNT (test code=PLT) 261 K/mm3 150-450 MEAN PLATELET VOLUME (test code=MPV) 10.4 fL 6.7-11.0 NEUTROPHIL % (test code=NT%) 75.1 % 39.0-69.0 IMMATURE GRANULOCYTE % (test code=IG%) 0.9 % 0.0-5.0 LYMPHOCYTE % (test code=LY%) 16.9 % 25.0-55.0 MONOCYTE % (test code=MO%) 4.9 % 0.0-10.0 EOSINOPHIL % (test code=EO%) 1.8 % 0.0-5.0 BASOPHIL % (test code=BA%) 0.4 % 0.0-1.0 NUCLEATED RBC % (test code=NRBC%) 0.0 % 0-0 NEUTROPHIL # (test code=NT#) 11.84 K/mm3 1.8-7.7 IMMATURE GRANULOCYTE # (test code=IG#) 0.14 x10 3/uL 0-0.03 LYMPHOCYTE # (test code=LY#) 2.67 K/mm3 1.0-5.0 MONOCYTE # (test code=MO#) 0.77 K/mm3 0-0.8 EOSINOPHIL # (test code=EO#) 0.29 K/mm3 0.0-0.5 BASOPHIL # (test code=BA#) 0.07 K/mm3 0.0-0.2 NUCLEATED RBC # (test code=NRBC#) 0.00 K/mm3 0.0-0.1 MANUAL DIFF REQUIRED (test code=MDIFF) NO, ONLY SCAN NEEDED DIFFERENTIAL [id number] 19:00:00* Test Item Value Reference Range Comments STAIN ACCEPTABILITY (test code=STN ACCEPTABLE) CABOT RINGS (test code=CAB) MORPHOLOGY COMMENT (test code=MOC) PLATELET ESTIMATE (test code=PLTEST) PLATELET MORPHOLOGY (test code=PLTMORPH) CBC W/AUTO [id number] 19:00:00* Test Item Value Reference Range Comments WHITE BLOOD CELL (test code=WBC) 15.8 K/mm3 4.5-12.5 RED BLOOD CELL (test code=RBC) 4.38 mill/mm3 3.7-5.2 HEMOGLOBIN (test code=HGB) 11.1 gram/dL 11.5-15.5 HEMATOCRIT (test code=HCT) 36.4 % 36.0-46.0 MEAN CELL VOLUME (test code=MCV) 83.1 fL 80-98 MEAN CELL HGB (test code=MCH) 25.3 picogram 27.0-33.0 MEAN CELL HGB CONCETRATION (test code=MCHC) 30.5 gram/dL 33.0-36.0 RED CELL DISTRIBUTION WIDTH (test code=RDW) 15.7 % 11.6-16.2 RED CELL DISTRIBUTION WIDTH SD (test code=RDW-SD) 47.2 fL 37.0-51.0 PLATELET COUNT (test code=PLT) 261 K/mm3 150-450 MEAN PLATELET VOLUME (test code=MPV) 10.4 fL 6.7-11.0 NEUTROPHIL % (test code=NT%) 75.1 % 39.0-69.0 IMMATURE GRANULOCYTE % (test code=IG%) 0.9 % 0.0-5.0 LYMPHOCYTE % (test code=LY%) 16.9 % 25.0-55.0 MONOCYTE % (test code=MO%) 4.9 % 0.0-10.0 EOSINOPHIL % (test code=EO%) 1.8 % 0.0-5.0 BASOPHIL % (test code=BA%) 0.4 % 0.0-1.0 NUCLEATED RBC % (test code=NRBC%) 0.0 % 0-0 NEUTROPHIL # (test code=NT#) 11.84 K/mm3 1.8-7.7 IMMATURE GRANULOCYTE # (test code=IG#) 0.14 x10 3/uL 0-0.03 LYMPHOCYTE # (test code=LY#) 2.67 K/mm3 1.0-5.0 MONOCYTE # (test code=MO#) 0.77 K/mm3 0-0.8 EOSINOPHIL # (test code=EO#) 0.29 K/mm3 0.0-0.5 BASOPHIL # (test code=BA#) 0.07 K/mm3 0.0-0.2 NUCLEATED RBC # (test code=NRBC#) 0.00 K/mm3 0.0-0.1 MANUAL DIFF REQUIRED (test code=MDIFF) NO, ONLY SCAN NEEDED DIFFERENTIAL [id number] 19:00:00* Test Item Value Reference Range Comments STAIN ACCEPTABILITY (test code=STN ACCEPTABLE) MORPHOLOGY COMMENT (test code=MOC) PLATELET ESTIMATE (test code=PLTEST) PLATELET MORPHOLOGY (test code=PLTMORPH) CBC W/AUTO [id number] 19:00:00* Test Item Value Reference Range Comments WHITE BLOOD CELL (test code=WBC) 15.8 K/mm3 4.5-12.5 RED BLOOD CELL (test code=RBC) 4.38 mill/mm3 3.7-5.2 HEMOGLOBIN (test code=HGB) 11.1 gram/dL 11.5-15.5 HEMATOCRIT (test code=HCT) 36.4 % 36.0-46.0 MEAN CELL VOLUME (test code=MCV) 83.1 fL 80-98 MEAN CELL HGB (test code=MCH) 25.3 picogram 27.0-33.0 MEAN CELL HGB CONCETRATION (test code=MCHC) 30.5 gram/dL 33.0-36.0 RED CELL DISTRIBUTION WIDTH (test code=RDW) 15.7 % 11.6-16.2 RED CELL DISTRIBUTION WIDTH SD (test code=RDW-SD) 47.2 fL 37.0-51.0 PLATELET COUNT (test code=PLT) 261 K/mm3 150-450 MEAN PLATELET VOLUME (test code=MPV) 10.4 fL 6.7-11.0 NEUTROPHIL % (test code=NT%) 75.1 % 39.0-69.0 IMMATURE GRANULOCYTE % (test code=IG%) 0.9 % 0.0-5.0 LYMPHOCYTE % (test code=LY%) 16.9 % 25.0-55.0 MONOCYTE % (test code=MO%) 4.9 % 0.0-10.0 EOSINOPHIL % (test code=EO%) 1.8 % 0.0-5.0 BASOPHIL % (test code=BA%) 0.4 % 0.0-1.0 NUCLEATED RBC % (test code=NRBC%) 0.0 % 0-0 NEUTROPHIL # (test code=NT#) 11.84 K/mm3 1.8-7.7 IMMATURE GRANULOCYTE # (test code=IG#) 0.14 x10 3/uL 0-0.03 LYMPHOCYTE # (test code=LY#) 2.67 K/mm3 1.0-5.0 MONOCYTE # (test code=MO#) 0.77 K/mm3 0-0.8 EOSINOPHIL # (test code=EO#) 0.29 K/mm3 0.0-0.5 BASOPHIL # (test code=BA#) 0.07 K/mm3 0.0-0.2 NUCLEATED RBC # (test code=NRBC#) 0.00 K/mm3 0.0-0.1 MANUAL DIFF REQUIRED (test code=MDIFF) NO, ONLY SCAN NEEDED DIFFERENTIAL [id number] 19:00:00* Test Item Value Reference Range Comments STAIN ACCEPTABILITY (test code=STN ACCEPTABLE) CABOT RINGS (test code=CAB) MORPHOLOGY COMMENT (test code=MOC) PLATELET ESTIMATE (test code=PLTEST) PLATELET MORPHOLOGY (test code=PLTMORPH) - XR CHEST 2 [id number] 12:14:00 FAX: Wilbur Evans [phone] Willis: O St: REG FAX: Noah Rivero MD [phone] Name: JAROD MEYERS [facility] : 1975 Age/S: 42/F [address] [facility] Unit #: [id number] Loc: [place] [address] Phys: Noah Walker MD Acct: [id number] Dis Date: Status: REG CLI PHONE #: [phone] Exam Date: 10/31/2018 1034 FAX #: [phone] Reason: L23.9,J45.909,R52,G47.33,K21.9,J34.3 EXAMS: CPT CODE: [id number] XR CHEST 2 V 06594 TECHNIQUE - XR CHEST 2 V . COMPARISON: Chest x-ray 10/28/2018 HISTORY: 42 years Female L23.9,J45.909,R52,G47.33,K21.9,J34.3 FINDINGS: Lungs: Atelectasis versus infiltrate medial left lower lung field. New since old chest x-ray 10/28/2018. Lungs are normal in volume. Mediastinum and mayra: No enlargement or other mass. Cardiovascular structures: No cardiomegaly. No abnormalities in vascular structures. Pleura/CP angles: Clear. No pneumothorax. Bones: No osseous ab normalities. Soft tissues: No abnormalities. Tubes a nd lines: None. Other: None. IMPRESSION: Atelectasis versus infiltrate medial left lower lung field. New since ol d chest x-ray 10/28/2018. at 7548 Reported and signed by: Nick Nuno CC: Wilbur Hardy; Noah Walker MD Technologis t: FRANCK TIM RT(R); STUDENT TECHNOLOGIST Trnscrd Date/Time/By: 10/31/2018 (3531) : By: Javi Orig Print D/T: S: 10/31/2018 (6361) PAGE 1 Signed Report VENOUS BLOOD [id number] 16:09:00* Test Item Value Reference Range Comments VENOUS BLOOD GAS PH (test code=PHV) 7.41 7.30-7.40 VENOUS BLOOD GAS PCO2 (test code=PCO2V) 36.5 mm Hg 39.0-51.0 VBG HCO3 (test code=HCO3V) 22.4 mmol/L 17.0-30.0 VBG BASE EXCESS (test code=LIBERTAD) -1.8 mmol/L -5.0-5.0 VENOUS BLOOD GAS O2 SAT. (test code=O2SATV) 76 % 94-98 VENOUS BLOOD GAS FIO2 (test code=FIO2V) 21.0 PT. HGB (test code=PHGBVBG) 13.4 gram/dL 11.5-15.5 VENOUS BLOOD GAS SITE (test code=SITEV) IVC QUES HEMATOCRIT (test code=HCT/VBG) 39 % 42-52 HGB O2 SAT (test code=HBOSAT) 73.1 % 94.00-98.00 CARBOXYHEMOGLOBIN (test code=HOHGBT) 2.6 %totalHg 0.5-1.5 Results called to and read back by 16:09 - 10/28/2018; by MARY METHEMOGLOBIN (test code=METHGB) 0.6 % 0.0-1.50 - XR CHEST 1 [id number] 15:08:00 FAX: Wilbur Evans [phone] Willis: B St: PRE FAX: JEREMIAS SOTO MD Name: MEYERSJAROD NEIL [facility] : 1975 Age/S: 42/F [address] [facility] Unit #: [id number] Loc: [place] [address] Phys: JEREMIAS SOTO MD Acct: [id number] Dis Date: Status: PRE ER PHONE #: [phone] Exam Date: 10/28/2018 1440 FAX #: [phone] Reason: CHEST PAIN EXAMS: CPT CODE: [id number] XR CHEST 1 V 92082 TECHNIQUE - XR CHEST 1 V . COMPARISON: Chest x-ray 10/03/2018 HISTORY: 42 years Female CHEST PAIN FINDINGS: Lungs: No nodules. No air space or interstitial lung disease. Lungs are normal in volume. Mediastinum and mayra: No enlargement or other mass. Cardiovascular structures: No cardiomegaly. No abnormalities in vascular structures. Pleura/CP angles: Clear. No pneumothorax. Bones: No osseous abnormalities. Soft tissues: No abnormalities. Tubes and lines: None. Other: None. IMPRESSION: No acute cardiopulmonary abnormalities. at 1193 Reported and signed by: Nick Allen M.D. CC: Wilbur Hardy EVAN MD Technologist: Shonda Bustos RT(R) Trnscrd Date/Time/By: 10/28/2018 (5600) : By: AngeliqueMIRNA Orig Print D/T: S: 10/28/2018 (2158) PAGE 1 Signed Report BASIC METABOLIC [id number] 14:55:00* Test Item Value Reference Range Comments SODIUM (test code=NA) 141 mmol/L 136-145 POTASSIUM (test code=K) 3.8 mmol/L 3.5-5.1 CHLORIDE (test code=CL) 110.0 mmol/L 98-107 CARBON DIOXIDE (test code=CO2) 26.0 mmol/L 21-32 ANION GAP (test code=GAP) 8.8 10-20 GLUCOSE (test code=GLU) 83 mg/dL 74-106 BLOOD UREA NITROGEN (test code=BUN) 7 mg/dL 7-18 GLOMERULAR FILTRATION RATE (test code=GFR) > 60 mL/min >=60 Estimated GFR by using Modified MDRD formula.Chronic kidney disease is defined as either kidney damageor GFR <60 mL/min/1.73 m2 for >3 months. CREATININE (test code=CREAT) 0.80 mg/dL 0.55-1.02 Note change in reference range due to change in reagent. BUN/CREATININE RATIO (test code=BUN/CREA) 8.8 10-20 CALCIUM (test code=CA) 8.6 mg/dL 8.5-10.1 HCG SERUM [id number] 14:55:00* Test Item Value Reference Range Comments HCG SERUM QUAL (test code=HCGQL) NEGATIVE NEGATIVE This HCGQL test is NOT applicable for MALE patients.Check with nurse about probable order error.If Tumor Marker Test needed, nurse should order test "HCGTU"(Test #550.05588) [id number] 14:55:00* Test Item Value Reference Range Comments TROPONIN-I (test code=TROPI) <0.015 ng/mL 0-0.045 BASIC METABOLIC [id number] 14:38:00* Test Item Value Reference Range Comments SODIUM (test code=NA) mmol/L 136-145 POTASSIUM (test code=K) mmol/L 3.5-5.1 CHLORIDE (test code=CL) mmol/L 98-107 CARBON DIOXIDE (test code=CO2) mmol/L 21-32 ANION GAP (test code=GAP) 10-20 GLUCOSE (test code=GLU) mg/dL 74-106 BLOOD UREA NITROGEN (test code=BUN) mg/dL 7-18 GLOMERULAR FILTRATION RATE (test code=GFR) mL/min >=60 CREATININE (test code=CREAT) mg/dL 0.55-1.02 BUN/CREATININE RATIO (test code=BUN/CREA) 10-20 CALCIUM (test code=CA) mg/dL 8.5-10.1 HCG SERUM [id number] 14:38:00* Test Item Value Reference Range Comments HCG SERUM QUAL (test code=HCGQL) NEGATIVE NEGATIVE This HCGQL test is NOT applicable for MALE patients.Check with nurse about probable order error.If Tumor Marker Test needed, nurse should order test "HCGTU"(Test #550.20655) [id number] 14:38:00* Test Item Value Reference Range Comments TROPONIN-I (test code=TROPI) ng/mL 0-0.045 CBC W/O [id number] 14:36:00* Test Item Value Reference Range Comments WHITE BLOOD CELL (test code=WBC) 14.1 K/mm3 4.5-12.5 RED BLOOD CELL (test code=RBC) 4.85 mill/mm3 3.7-5.2 HEMOGLOBIN (test code=HGB) 12.4 gram/dL 11.5-15.5 HEMATOCRIT (test code=HCT) 38.6 % 36.0-46.0 MEAN CELL VOLUME (test code=MCV) 79.6 fL 80-98 MEAN CELL HGB (test code=MCH) 25.6 picogram 27.0-33.0 MEAN CELL HGB CONCETRATION (test code=MCHC) 32.1 gram/dL 33.0-36.0 RED CELL DISTRIBUTION WIDTH (test code=RDW) 15.7 % 11.6-16.2 PLATELET COUNT (test code=PLT) 353 K/mm3 150-450 MEAN PLATELET VOLUME (test code=MPV) 9.8 fL 6.7-11.0 - CTA [id number] 23:29:00 Name: JAROD MEYERS [facility] : 1975 Age/S: 42 / F [address] [facility] Unit #: [id number] Loc: [place] [address] Phys: Mono Bermudez MD Acct: [id number] Dis Date: Status: ADM IN PHONE #: [phone] Exam Date: 10/03/2018 2310 FAX #: [phone] Reason: sob, chest pain EXAMS: CPT CODE: [id number] CTA CHEST 62741 AFTER HOURS SERVICE ON: 10/03/2018 11:[address] Scan of the Chest With Contrast Location Code M12 History: sob, chest pain Technique: Scans were performed on a helical scanner post IV contrast. Coronal and sagittal reconstructions were performed. One or more of the following dose reduction techniques were used: Automated exposure control, adjustment of the mA and/or kV according to patient size, and/or utilization of iterative reconstruction technique. FINDINGS: Study is significantly limited due to minimal amount of contrast in the pulmonary arteries. No saddle embolus is seen in the pulmonary trunk. Smaller emboli cannot be excluded. No aortic aneurysm or dissection seen. No cardiomegaly. No pericardial effusion. There are tiny scattered alveolar and reticulonodular densities in the upper and lower lobes. There is no large focal infiltrate. There is no pleural effusion or edema. There is no pneumothorax. IMPRESSION: Technically limited examination for pulmonary emboli. No large central saddle embolism. No aortic aneurysm or dissection. Tiny scattered alveolar and reticulonodular densities consistent with mild pneumonitis. at 5089 Reported and signed by: Mirtha Walker M.D. PAGE 1 Signed Report (CONTINUED) Name: JAROD MEYERS [facility] : 1975 Age/S: 42 / F [address] [facility] Unit #: [id number] Loc: [place] [address] Phys: Mono Bermudez MD Acct: [id number] Dis Date: Status: ADM IN PHONE #: [phone] Exam Date: 10/03/2018 2310 FAX #: [phone] Reason: sob, chest pain EXAMS: CPT CODE: [id number] CTA CHEST 72794 <Continued> CC: Mono Bermudez MD; Wilbur Hardy Technologist:RT LINDSAY CTDI: DLP: Trnscb Date/Time: 10/03/2018 (2328) [id number] Orig Print D/T: S: 10/03/2018 (233) CTDI: DLP: PAGE 2 Signed Report B-TYPE NATRIURETIC [id number] 21:41:00* Test Item Value Reference Range Comments B-TYPE NATRIURETIC PEPTIDE (test code=BNP) 9.51 pgram/mL 0-100 BASIC METABOLIC [id number] 21:23:00* Test Item Value Reference Range Comments SODIUM (test code=NA) 140 mmol/L 136-145 POTASSIUM (test code=K) 3.1 mmol/L 3.5-5.1 CHLORIDE (test code=CL) 104.0 mmol/L 98-107 CARBON DIOXIDE (test code=CO2) 27.0 mmol/L 21-32 ANION GAP (test code=GAP) 12.1 10-20 GLUCOSE (test code=GLU) 89 mg/dL 74-106 BLOOD UREA NITROGEN (test code=BUN) 14 mg/dL 7-18 GLOMERULAR FILTRATION RATE (test code=GFR) > 60 mL/min >=60 Estimated GFR by using Modified MDRD formula.Chronic kidney disease is defined as either kidney damageor GFR <60 mL/min/1.73 m2 for >3 months. CREATININE (test code=CREAT) 1.00 mg/dL 0.55-1.02 Note change in reference range due to change in reagent. BUN/CREATININE RATIO (test code=BUN/CREA) 14.0 10-20 CALCIUM (test code=CA) 9.1 mg/dL 8.5-10.1 HCG SERUM [id number] 21:23:00* Test Item Value Reference Range Comments HCG SERUM QUAL (test code=HCGQL) NEGATIVE NEGATIVE This HCGQL test is NOT applicable for MALE patients.Check with nurse about probable order error.If Tumor Marker Test needed, nurse should order test "HCGTU"(Test #550.16422) [id number] 21:23:00* Test Item Value Reference Range Comments TROPONIN-I (test code=TROPI) <0.015 ng/mL 0-0.045 BASIC METABOLIC [id number] 21:05:00* Test Item Value Reference Range Comments SODIUM (test code=NA) 140 mmol/L 136-145 POTASSIUM (test code=K) 3.1 mmol/L 3.5-5.1 CHLORIDE (test code=CL) 104.0 mmol/L 98-107 CARBON DIOXIDE (test code=CO2) mmol/L 21-32 ANION GAP (test code=GAP) 10-20 GLUCOSE (test code=GLU) mg/dL 74-106 BLOOD UREA NITROGEN (test code=BUN) mg/dL 7-18 GLOMERULAR FILTRATION RATE (test code=GFR) mL/min >=60 CREATININE (test code=CREAT) mg/dL 0.55-1.02 BUN/CREATININE RATIO (test code=BUN/CREA) 10-20 CALCIUM (test code=CA) 9.1 mg/dL 8.5-10.1 HCG SERUM [id number] 21:05:00* Test Item Value Reference Range Comments HCG SERUM QUAL (test code=HCGQL) NEGATIVE NEGATIVE This HCGQL test is NOT applicable for MALE patients.Check with nurse about probable order error.If Tumor Marker Test needed, nurse should order test "HCGTU"(Test #550.24660) [id number] 21:05:00* Test Item Value Reference Range Comments TROPONIN-I (test code=TROPI) ng/mL 0-0.045 - XR CHEST 1 [id number] 21:05:00 FAX: Mono Corral [phone] Willis: St: REG FAX: Wilbur Evans [phone] Name: JAROD MEYERS [facility] : 1975 Age/S: 42/F [address] Unit #: [id number] Loc: [place] [address] Phys: Mono Bermudez MD Acct: [id number] Dis Date: Status: REG ER PHONE #: [phone] Exam Date: 10/03/20182049 FAX #: [phone] Reason: Shortness of Breath EXAMS: CPT CODE: [id number] XR CHEST 1 V 01850 REASON FOR EXAM: Shortness of Breath EXAM ORDER DATE: 10/03/2018 8:36 PM Ordering Antwan: Mono Bermudez MD PROCEDURE: - XR CHEST 1 V COMPARISON: FINDINGS: Portable AP frontal view of the chest obtained at 8:50 PM shows clear lungs without evidence of consolidation. There is no evidence of effusion. The heart size is within normal limits. Pulmonary vasculatures are unremarkable. IMPRESSION: No active disease. El ectronically Signed by Antwan Keenan on 10/03/2018 at 2104 Reported and signed by: Rubin Keenan M.D. CC: Clemente Bermudez MD; Wilbur Hardy Technologist: Deena Torres(Leobardo) Trnscrd Date/Time/By: 10/03/2018 (2104) : By: Emmanuelle QuintanaVTL Orig Print D/T: S: 10/03/2018 (2107) PAG E 1 Signed Report BASIC METABOLIC [id number] 21:03:00* Test Item Value Reference Range Comments SODIUM (test code=NA) mmol/L 136-145 POTASSIUM (test code=K) mmol/L 3.5-5.1 CHLORIDE (test code=CL) mmol/L 98-107 CARBON DIOXIDE (test code=CO2) mmol/L 21-32 ANION GAP (test code=GAP) 10-20 GLUCOSE (test code=GLU) mg/dL 74-106 BLOOD UREA NITROGEN (test code=BUN) mg/dL 7-18 GLOMERULAR FILTRATION RATE (test code=GFR) mL/min >=60 CREATININE (test code=CREAT) mg/dL 0.55-1.02 BUN/CREATININE RATIO (test code=BUN/CREA) 10-20 CALCIUM (test code=CA) mg/dL 8.5-10.1 HCG SERUM [id number] 21:03:00* Test Item Value Reference Range Comments HCG SERUM QUAL (test code=HCGQL) NEGATIVE NEGATIVE This HCGQL test is NOT applicable for MALE patients.Check with nurse about probable order error.If Tumor Marker Test needed, nurse should order test "HCGTU"(Test #550.67647) [id number] 21:03:00* Test Item Value Reference Range Comments TROPONIN-I (test code=TROPI) ng/mL 0-0.045 CBC W/O [id number] 20:54:00* Test Item Value Reference Range Comments WHITE BLOOD CELL (test code=WBC) 20.6 K/mm3 4.5-12.5 RED BLOOD CELL (test code=RBC) 5.10 mill/mm3 3.7-5.2 HEMOGLOBIN (test code=HGB) 12.6 gram/dL 11.5-15.5 HEMATOCRIT (test code=HCT) 42.0 % 36.0-46.0 MEAN CELL VOLUME (test code=MCV) 82.4 fL 80-98 MEAN CELL HGB (test code=MCH) 24.7 picogram 27.0-33.0 MEAN CELL HGB CONCETRATION (test code=MCHC) 30.0 gram/dL 33.0-36.0 RED CELL DISTRIBUTION WIDTH (test code=RDW) 15.3 % 11.6-16.2 PLATELET COUNT (test code=PLT) 398 K/mm3 150-450 MEAN PLATELET VOLUME (test code=MPV) 10.0 fL 6.7-11.0 CBC W/O [id number] 20:53:00* Test Item Value Reference Range Comments WHITE BLOOD CELL (test code=WBC) K/mm3 4.5-12.5 RED BLOOD CELL (test code=RBC) mill/mm3 3.7-5.2 HEMOGLOBIN (test code=HGB) 12.6 gram/dL 11.5-15.5 HEMATOCRIT (test code=HCT) 42.0 % 36.0-46.0 MEAN CELL VOLUME (test code=MCV) fL 80-98 MEAN CELL HGB (test code=MCH) picogram 27.0-33.0 MEAN CELL HGB CONCETRATION (test code=MCHC) gram/dL 33.0-36.0 RED CELL DISTRIBUTION WIDTH (test code=RDW) % 11.6-16.2 PLATELET COUNT (test code=PLT) K/mm3 150-450 MEAN PLATELET VOLUME (test code=MPV) fL 6.7-11.0
--- NOTE | 2018-11-19 23:29 | NUR ---
Dr. Eduar Hill paged via his answering service. Currently awaiting his return call.
--- NOTE | 2018-11-19 23:49 | NUR ---
Spoke with Dr Joseph. He has approved insertion of PICC line without current labs in this building. He has verbally notified the PICC nurse, Adair Arriaza to procede. The medical records from the [facility] were not delivered with pt.
--- NOTE | 2018-11-19 23:53 | NUR ---
Spoke with Dr Briseno. He is aware of the case, and ordered for ultrasound abdomen with attention to gallbladder is okay to be done in am.
[2018-11-20] VITALS (26 sets, daily range): BP systolic 82–118; BP diastolic 52–86
[2018-11-20] MEDS ORDERED: SODIUM CHLORIDE 0.9% 1000ML 2,000 ML IV STA
--- NOTE | 2018-11-20 00:09 | Diagnostic Imaging Report ---
ADDENDUM #1 EXAMINATION: CHEST SINGLE (PORTABLE) INDICATION: Asthma exacerbation COMPARISON: None FINDINGS: TUBES and LINES: Right upper extremity PICC with distal tip projected on the mid SVC. LUNGS: Lungs are well inflated. Lungs are clear. There is no evidence of pneumonia or pulmonary edema. PLEURA: No pleural effusion or pneumothorax. HEART AND MEDIASTINUM: The cardiomediastinal silhouette is unremarkable. BONES AND SOFT TISSUES: No acute osseous lesion. Soft tissues are unremarkable. UPPER ABDOMEN: No free air under the diaphragm. IMPRESSION: Right upper extremity PICC with distal tip projected on the mid SVC, in adequate position. Signed by: Dr. Joe Turner M.D. on 11/20/2018 12:12 AM ORIGINAL REPORT EXAMINATION: CHEST SINGLE (PORTABLE) INDICATION: Asthma exacerbation COMPARISON: None FINDINGS: TUBES and LINES: None. LUNGS: Lungs are well inflated. Lungs are clear. There is no evidence of pneumonia or pulmonary edema. PLEURA: No pleural effusion or pneumothorax. HEART AND MEDIASTINUM: The cardiomediastinal silhouette is unremarkable. BONES AND SOFT TISSUES: No acute osseous lesion. Soft tissues are unremarkable. UPPER ABDOMEN: No free air under the diaphragm. IMPRESSION: No acute thoracic abnormality. Signed by: Dr. Joe Turner M.D. on 11/20/2018 12:05 AM
[2018-11-20] MEDS: MORPHINE SULFATE INJ 4 MG/ML INJ 1ML IV PRN ×4 (00:59→17:48)
--- NOTE | 2018-11-20 00:59 | NUR ---
Medicated for c/o pain.
[2018-11-20] MEDS: METRONIDAZOLE 500MG/NS 100ML 100 ML IV SCH ×5 (01:04→23:43)
[2018-11-20] MEDS: SODIUM CHLORIDE 0.9% 1000ML 2,000 ML IV STA ×2 (01:13→01:26)
[2018-11-20 01:14] LABS: BASOPHILS % 0.3 % (0.0-1.0); EOSINOPHILS % 0.3 % (0.0-6.0); HEMATOCRIT 35.1 % (34.2-44.1); HEMOGLOBIN 11.2 g/dL (12.0-16.0); LYMPHOCYTES # (AUTO) 0.9 (1.0-3.2); LYMPHOCYTES % 7.3 % (18.0-39.1); MEAN CORPUSCULAR HEMOGLOBIN 26.1 pg (28-32); MEAN CORPUSCULAR HGB CONC 31.9 g/dL (31-35); MEAN CORPUSCULAR VOLUME 81.8 fL (81-99); MONOCYTES # (AUTO) 0.6 (0.2-0.8); MONOCYTES % 4.7 % (4.4-11.3); NEUTROPHILS # (AUTO) 10.4 (2.1-6.9); NEUTROPHILS % 86.9 % (38.7-80.0); PLATELET COUNT 252 x10e3/uL (140-360); RED BLOOD COUNT 4.29 x10e6/uL (3.6-5.1); RED CELL DISTRIBUTION WIDTH 16.8 % (11.7-14.4)
[2018-11-20] MEDS: PIPER-TAZ 3.375 GM 50 ML IV SCH ×5 (01:27→23:43)
[2018-11-20 01:29] LABS: ALANINE AMINOTRANSFERASE 21 IU/L (0-55); ALBUMIN 2.5 g/dL (3.5-5.0); ALBUMIN/GLOBULIN RATIO 0.9 (0.8-2.0); ALKALINE PHOSPHATASE 63 IU/L (40-150); ANION GAP 9.3 mmol/L (8-16); BLOOD UREA NITROGEN 19 mg/dL (7-26); BUN/CREATININE RATIO 20 (6-25); CARBON DIOXIDE 24 mmol/L (22-29); CHLORIDE 104 mmol/L (98-107); CREATININE, SERUM 0.93 mg/dL (0.57-1.11); EST GLOMERULAR FILTRATION RATE > 60 ML/MIN (60-); GLUCOSE 391 mg/dL (74-118); POTASSIUM 3.3 mmol/L (3.5-5.1); SODIUM 134 mmol/L (136-145)
[2018-11-20 01:35] LABS: CALCIUM 7.7 mg/dL (8.4-10.2)
[2018-11-20] MEDS: DEXTROSE 5%/0.9% SOD CHL 1,000 ML IV SCH ×4 (04:04→20:31)
[2018-11-20] MEDS: ONDANSETRON HCL INJ 2MG/ML 2ML 2 MG/ML VIAL IV PRN ×2 (06:02→16:10)
[2018-11-20 06:39] LABS: BASOPHILS % 0.4 % (0.0-1.0); EOSINOPHILS % 0.2 % (0.0-6.0); HEMATOCRIT 34.3 % (34.2-44.1); HEMOGLOBIN 10.8 g/dL (12.0-16.0); LYMPHOCYTES % 12.5 % (18.0-39.1); MEAN CORPUSCULAR HEMOGLOBIN 26.3 pg (28-32); MEAN CORPUSCULAR HGB CONC 31.5 g/dL (31-35); MEAN CORPUSCULAR VOLUME 83.7 fL (81-99); MONOCYTES # (AUTO) 0.4 (0.2-0.8); MONOCYTES % 5.3 % (4.4-11.3); NEUTROPHILS # (AUTO) 6.8 (2.1-6.9); NEUTROPHILS % 80.9 % (38.7-80.0); PLATELET COUNT 225 x10e3/uL (140-360); RED CELL DISTRIBUTION WIDTH 16.8 % (11.7-14.4)
[2018-11-20 06:46] LABS: ALANINE AMINOTRANSFERASE 23 IU/L (0-55); ALBUMIN 2.5 g/dL (3.5-5.0); ALBUMIN/GLOBULIN RATIO 0.9 (0.8-2.0); ALKALINE PHOSPHATASE 60 IU/L (40-150); AMYLASE 16 U/L (25-125); ANION GAP 9.7 mmol/L (8-16); BLOOD UREA NITROGEN 16 mg/dL (7-26); BUN/CREATININE RATIO 21 (6-25); CALCIUM 7.9 mg/dL (8.4-10.2); CARBON DIOXIDE 24 mmol/L (22-29); CHLORIDE 106 mmol/L (98-107); CREATININE, SERUM 0.78 mg/dL (0.57-1.11); EST GLOMERULAR FILTRATION RATE > 60 ML/MIN (60-); GLUCOSE 103 mg/dL (74-118); POTASSIUM 3.7 mmol/L (3.5-5.1); SODIUM 136 mmol/L (136-145)
[2018-11-20] MEDS ORDERED: ONDANSETRON2 MG/1 ML IV (08:35)
[2018-11-20] MEDS ORDERED: BENZONATATE100 MG PO (08:35)
[2018-11-20] MEDS ORDERED: AMBIEN5 MG PO (08:35)
[2018-11-20] MEDS ORDERED: COLACE100 MG PO (08:35)
[2018-11-20] MEDS ORDERED: PANTOPRAZOLE SO40 MG PO (08:35)
[2018-11-20] MEDS ORDERED: ULTRAM50 MG PO (08:35)
[2018-11-20] MEDS ORDERED: METRONIDAZ500 MG/100 IV (08:35)
[2018-11-20] MEDS ORDERED: MORPHINE-NS2 MG/1 ML IV (08:35)
[2018-11-20] MEDS ORDERED: MELOXICAM7.5 MG PO (08:35)
[2018-11-20] MEDS ORDERED: FLUTICASONE PRO16 GM (08:35)
[2018-11-20] MEDS ORDERED: DEXTROSE 5% IV (08:35)
[2018-11-20] MEDS ORDERED: SALINE NOSE SPR45 ML (08:35)
[2018-11-20] MEDS ORDERED: [UNRECOGNIZED DRUG - OTHER] IV (08:35)
[2018-11-20] MEDS ORDERED: CETIRIZINE HCL10 MG PO (08:35)
[2018-11-20] MEDS ORDERED: ACETAMINOPHEN325 M1 PO (08:35)
[2018-11-20] MEDS ORDERED: ALBUTEROL0.63 MG/3 (08:35)
[2018-11-20] MEDS ORDERED: GABAPENTIN300 MG PO (08:35)
[2018-11-20] MEDS ORDERED: DULERA 200 MCG/13 GM INH (08:35)
[2018-11-20] MEDS ORDERED: MELATONIN3 MG PO (08:35)
[2018-11-20] MEDS ORDERED: MONTELUKAST SOD10 MG PO (08:35)
[2018-11-20] MEDS ORDERED: SPIRIVA18 MCG INH (08:35)
[2018-11-20] MEDS ORDERED: LEVOFLOXAC500 MG/100 IV (08:35)
[2018-11-20] MEDS ORDERED: POLYETHYLENE GL17 GM PO (08:35)
[2018-11-20] MEDS ORDERED: CYCLOBENZAPRINE5 MG PO (08:35)
--- NOTE | 2018-11-20 08:35 | NUR ---
medications patient was taking at [facility] entered into medication reconciliation
--- NOTE | 2018-11-20 09:22 | Diagnostic Imaging Report ---
Right upper quadrant abdominal ultrasound. History: <Right upper quadrant pain>. Comparison: <None available>. Discussion: Transverse and longitudinal images of the right upper quadrant of the abdomen were obtained demonstrating a liver of normal size measuring 16.5 cm in length. There is increased hepatic echogenicity. There is no evidence of a focal hepatic mass. The portal vein is patent with hepatopetal flow and is within normal limits measuring 12 mm in diameter. The biliary tree is within normal limits with the common bile duct measuring 5 mm in diameter. The gallbladder is normal without evidence of wall thickening or pericholecystic fluid. The sonographic Taveras's sign was negative. The right kidney is normal in size and echogenicity without evidence of hydronephrosis, stones, or mass and measures 13.4 x 5.0 x 5.6 cm. Lower pole right renal cyst measures maximal dimension of 1.6 cm. The pancreatic <body and tail> are visualized and are normal in appearance. The abdominal aorta is within normal limits measuring 2.2 cm. The IVC is patent. There is no evidence of free fluid. IMPRESSION: 1. Normal-appearing gallbladder without stones, sludge or wall thickening. 2. Benign appearing right lower pole renal cyst. 3. Increased hepatic echogenicity. Signed by: Dr. Dandy Mabry DO on 11/20/2018 9:19 AM
--- NOTE | 2018-11-20 12:22 | NUR ---
Report given to SATURNINO Brewster for 208. Addendum: 11/20/18 at 1223 by Patricia Peraza RN Entered in error
[2018-11-20] MEDS ORDERED: GADOBENATE DIMEGLUMINE 1 ML IV ONE (15:15)
[2018-11-20] MEDS: HYDROCODONE/APAP 5MG-325MG TAB PO PRN (16:02)
--- NOTE | 2018-11-20 17:51 | Diagnostic Imaging Report ---
EXAM: MR Abdomen WITHOUT and WITH Contrast Magnetic Resonance Cholangiopancreatography (M.R.C.P.) INDICATION: ^GALLSTONES^N. A septic acute cholecystitis. Evaluate for possible passed gallstones. COMPARISON: Gallbladder ultrasound 11/20/2018. TECHNIQUE: Multiplanar and multisequence imaging was performed of the abdomen without and with contrast. T1-weighted, T2-weighted images, T1-weighted in and [id number], and Diffusion weighted images. Dynamic, post gadolinium T1-weighted spoiled gradient echo scans. M.R.C.P. Technique: Multiplanar, multisequence MRCP was performed, with sequences including coronal turbo spin-echo T1-weighted scans, [facility] MRCP scans, coronal spin, coronal MPR 2, SMRCP 3D HR, [facility] MRCP LIZ[place]AGA. Thin and thick slab MRCP is performed by the technologist of scanner workstation and supervising reviewed by the radiologist. IV Contrast: 20 mL of Magnevist gadolinium Oral Contrast: None Medications: None COMPLICATIONS: None FINDINGS: LOWER THORAX: Unremarkable. HEPATOBILIARY: No focal hepatic lesions. No biliary ductal dilation. Common bile duct is normal measuring 0.56 cm in diameter with gradual tapering. No identifiable stricture or mass or intraductal stone.. GALLBLADDER: No radio-opaque stones or sludge. No wall thickening. Gallbladder is distended measuring 5.8 x 8.9 cm. SPLEEN: Mild splenomegaly measuring 13.4 cm craniocaudal dimension. PANCREAS: No focal masses or ductal dilatation. Pancreatic duct is normal. ADRENALS: No adrenal nodules KIDNEYS/URETERS: Kidneys enhance symmetrically. No hydronephrosis. 1.3 cm simple cyst in the inferior pole of the right kidney. No stones. GI TRACT: No abnormal distention, wall thickening, or evidence of bowel obstruction. LYMPH NODES: No lymphadenopathy. VESSELS: Unremarkable. 2 right and one left renal arteries. PERITONEUM / RETROPERITONEUM: No free air or fluid. BONES: Unremarkable. SOFT TISSUES: Unremarkable. IMPRESSION: 1. Gallbladder hydrops and lumbar without stones or wall thickening. This may represent acalculus cholecystitis. Correlate with HIDA scan. 2. Normal common bile duct with no stones or stricture. 3. Mild splenomegaly. Signed by: Dr. Chris Robbins M.D. on 11/20/2018 5:48 PM
--- NOTE | 2018-11-20 19:23 | Consultation ---
DATE OF CONSULTATION: 11/20/2018 Pulmonary Medicine consult REASON FOR REFERRAL: Asthma exacerbation. HISTORY OF PRESENT ILLNESS: Ms. Garcia is a pleasant 42-year-old female with asthma exacerbation. The patient is well known to me from outpatient followup. The patient was recently hospitalized for repeated asthma exacerbations. The patient with environmental triggers to her asthma. She also continues to smoke. She had repeated flares recently, but had recently been hospitalized and is getting better. The patient has history of eosinophil count, I believe 285 per micro liter. IgE level is pending. She is currently having more abdominal pain. The patient had ultrasound at outside facility with suggestion of stone in cystic duct with 4 mm gallbladder wall. The patient with fever of 102 degrees recorded by nursing. She was sent to [facility] for further care. Right now, her prednisone was down to 10 mg just prior to hospitalization. She is getting nebulizer therapy. PAST MEDICAL HISTORY: Chronic asthma, allergies, GERD, borderline blood pressure. ALLERGIES: NO KNOWN DRUG ALLERGIES. SOCIAL HISTORY: She smokes. No heavy alcohol. No drugs. She lives in apartment complex and recently cites a lot of allergies situated in her home environment and outside her home environment. FAMILY HISTORY: Noncontributory. REVIEW OF SYSTEMS: GENERAL: No weight changes. OPHTHALMOLOGIC: No double vision. ENT: No mouth ulcers. ENDOCRINE: No thyroid disease. PULMONARY: No hemoptysis. CARDIAC: No heart attacks. GI: No constipation. : No blood in urine. DERMATOLOGIC: No rashes. MUSCULOSKELETAL: Very mild arthritis. NEUROLOGIC: No seizures. OBJECTIVE: VITAL SIGNS: Afebrile, vital signs reviewed and noted per the chart record. GENERAL: No acute distress, alert, and calm. HEENT: Normocephalic, atraumatic. NECK: Supple. Throat midline. LUNGS: Bilateral air entry, no wheezes now. CARDIOVASCULAR: S1 and S2. No murmurs, rubs, or gallops. ABDOMEN: Soft and nontender. EXTREMITIES: No clubbing, no cyanosis, no edema. INTEGUMENT: No rash. No purpura. LABORATORY DATA: White count 8, hematocrit 34, white count was 11 yesterday, 3.7 potassium, 0.8 creatinine. LFTs normal. Amylase normal. IMPRESSION AND PLAN: 1. Admitted for abdominal pain, presumed cholecystitis. 2. Febrile syndrome, sepsis. 3. Asthma exacerbation, recently improved. 4. Obesity. 5. Active smoking. 6. Check urine test. Okay to hold off on prednisone. 7. Bronchodilators p.r.n. as needed. 8. Continue some fluid and get GI versus surgical consult to consider the need for any HIDA scan if there is no stone seen at this time versus MRCP. Thank you very much, Dr. Joseph for this consult. Please call for questions. MD TONE Marinelli/KIRILL /[phone]
--- NOTE | 2018-11-20 19:24 | NUR ---
Dr Joseph has returned call. Pt with trending systolic blood pressures from 80's to 110's. Order to continue current meds except hold morphine with low SBP and HIDA scan tomorrow. Do not transfer out of ICU tonight.
--- NOTE | 2018-11-20 22:09 | History and Physical ---
HISTORY OF PRESENT ILLNESS: She is a 42-year-old female with past medical history positive for chronic back pain and history of asthma. She was seen at [facility] after complaining of right upper quadrant pain, vomiting, fever. She was found to be hypotensive. She was transferred immediately to [facility] for concern of acute cholecystitis since the ultrasound report on the gallbladder gave me by the nurse on the phone showed that there was a gallstone stuck in the cystic duct of the gallbladder. So, the patient is feeling better today. The ultrasound of the gallbladder showed no evidence of any gallstones. The patient is going to have an MRCP today to make sure that there is no evidence of any choledocholithiasis. The patient has no fever right now. She is feeling better. REVIEW OF SYSTEMS: CARDIOVASCULAR: No chest pain or palpitation. RESPIRATORY: No shortness of breath. No cough. GASTROINTESTINAL: She did have nausea, vomiting, abdominal pain, and diarrhea, which are resolving. GENITOURINARY: No frequency. No dysuria. ALLERGIES: NOT ALLERGIC TO ANY MEDICATION. SOCIAL HISTORY: She smokes. She does not drink. PAST MEDICAL HISTORY: Obesity, chronic pain, and asthma. PHYSICAL EXAMINATION: VITAL SIGNS: Blood pressure 97/60, temperature , heart rate 70 per minute, respiratory rate 14 per minute, oxygen saturation 100%. HEART: Showed regular rhythm. Normal S1 and S2 sound. LUNGS: Clear bilaterally. ABDOMEN: Soft. Slight tenderness on the right upper quadrant. No distention. No visceromegaly. EXTREMITIES: Show no evidence of cyanosis or hematoma. LABORATORY DATA: Ultrasound of the abdomen showed no evidence of any gallstones. On the BMP; sodium 136, potassium 3.7, chloride 106, CO2 of 24, BUN 16, creatinine 0.78, glucose 103. On the CBC; white blood count 8.35, hemoglobin 10.8, hematocrit 34.3, and platelet count 225,000. AST 27, ALT 23, total bilirubin 0.6, alkaline phosphatase 60. IMPRESSION: 1. Fever and hypotension, most likely secondary to sepsis. 2. Acute cholecystitis. 3. Vomiting. 4. Obesity. 5. Asthma. 6. Chronic pain syndrome. PLAN OF TREATMENT: Continue albuterol q.4 hours. Continue Zosyn 3.375 g IV q.6 hours. Continue metronidazole 500 mg IV q.6 hours. Continue D5 normal saline at 150 mL an hour, morphine 2 mg IV q.4 hours as needed. I am going to start [place] 5/325 mg tablet q.4 hours as needed for moderate pain because the pain is not going to be relieved by morphine. Continue Tylenol 650 mg q.4 hours as needed for mild pain or fever. Continue Zofran 4 mg IV q.6 hours as needed. Continue Tylenol 1000 mg IV q.6 hours if she has any vomiting. has been consulted from a surgical point of view, Dr. Sergio Blandon from Gastroenterology point of view, and Dr. Noah Walker for Pulmonary because of history of asthma. The patient is going to go for MRCP today to rule out the possibility of choledocholithiasis. MD DAVID Saucedo/KIRILL /[id number]
[2018-11-21] VITALS (14 sets, daily range): BP systolic 93–132; BP diastolic 55–87
[2018-11-21] MEDS: DEXTROSE 5%/0.9% SOD CHL 1,000 ML IV SCH ×2 (00:55→08:00)
[2018-11-21] MEDS: PIPER-TAZ 3.375 GM 50 ML IV SCH ×4 (05:04→23:15)
[2018-11-21] MEDS: METRONIDAZOLE 500MG/NS 100ML 100 ML IV SCH ×4 (05:04→23:48)
[2018-11-21 05:46] LABS: BASOPHILS % 0.3 % (0.0-1.0); EOSINOPHILS # (AUTO) 0.1 (0.0-0.4); EOSINOPHILS % 3.3 % (0.0-6.0); HEMATOCRIT 31.5 % (34.2-44.1); HEMOGLOBIN 9.9 g/dL (12.0-16.0); LYMPHOCYTES # (AUTO) 1.1 (1.0-3.2); LYMPHOCYTES % 31.5 % (18.0-39.1); MEAN CORPUSCULAR HEMOGLOBIN 26.1 pg (28-32); MEAN CORPUSCULAR HGB CONC 31.4 g/dL (31-35); MEAN CORPUSCULAR VOLUME 83.1 fL (81-99); MONOCYTES # (AUTO) 0.4 (0.2-0.8); MONOCYTES % 11.7 % (4.4-11.3); NEUTROPHILS # (AUTO) 1.9 (2.1-6.9); NEUTROPHILS % 52.4 % (38.7-80.0); PLATELET COUNT 191 x10e3/uL (140-360); RED BLOOD COUNT 3.79 x10e6/uL (3.6-5.1); RED CELL DISTRIBUTION WIDTH 16.3 % (11.7-14.4)
--- NOTE | 2018-11-21 05:49 | NUR ---
Pain management. The only pain medication the pt has taken this shift is one dose of IV acetaminophen. Pt states pain got as good as 2 on 1 to 10 scale which is "almost gone" per pt. Pt stating very satisfied with the medication.
[2018-11-21 05:56] LABS: ANION GAP 7.5 mmol/L (8-16); BLOOD UREA NITROGEN 10 mg/dL (7-26); BUN/CREATININE RATIO 14 (6-25); CARBON DIOXIDE 24 mmol/L (22-29); CHLORIDE 111 mmol/L (98-107); CREATININE, SERUM 0.71 mg/dL (0.57-1.11); EST GLOMERULAR FILTRATION RATE > 60 ML/MIN (60-); GLUCOSE 89 mg/dL (74-118); POTASSIUM 3.5 mmol/L (3.5-5.1); SODIUM 139 mmol/L (136-145)
[2018-11-21] MEDS ORDERED: ACETAMINOPHEN 1000 MG/100 ML IV PRN (06:45)
--- NOTE | 2018-11-21 10:11 | NUR ---
PATIENT UP TO BEDSIDE COMMODE FOR VOID AND BM. NO CHANGES IN VITAL SIGNS. PATIENT DENIES SOB
--- NOTE | 2018-11-21 12:00 | NUR ---
RECEIVED PT VIA WHEELCHAIR. RESP EVEN AND UNLABORED. REPORTS TOLERABLE BACK PAIN 4/10 AT THIS TIME AND STATES WORSENED WITH ACTIVITY AND SITTING UP. PATIENT NPO AT THIS TIME PENDING HIDA SCAN. ORIENTED TO ROOM AND USE OF CALL LIGHT, CALL LIGHT PLACED WITHIN REACH.
--- NOTE | 2018-11-21 12:06 | NUR ---
PATIENT OFF UNIT FOR HIDA SCAN.
--- NOTE | 2018-11-21 12:36 | NUR ---
Pulmonary Medicine DATE OF ENCOUNTER: 11/21/2018 SUBJECTIVE: spontaneously breathing, not worse mrcp no active stone nor ductal defect noted less nausea some stools semi loose REVIEW OF SYSTEMS: no headaches, no bleeding OBJECTIVE: VITAL SIGNS: vital signs reviewed per the chart record. GENERAL: NAD, alert, and calm. HEENT: Normocephalic, atraumatic. NECK: Supple. Throat midline. LUNGS: Bilateral air entry, mild wheezes CARDIOVASCULAR: S1 and S2. No murmurs, rubs, or gallops. ABDOMEN: Soft and nontender mostly. mild discomfort at RUQ EXTREMITIES: No clubbing, no cyanosis, no edema. INTEGUMENT: No rash. No purpura. LABORATORY DATA: 3.5 k, cr .7. 4 wbc. 32 hct. ucg negative IMPRESSION AND PLAN: 1. Admitted for acute cholecystitis. 2. Febrile syndrome, sepsis. 3. Asthma exacerbation, improving 4. Obesity. 5. Active smoking. Okay to hold off on prednisone. Bronchodilators p.r.n. as needed. continue pain rx HiDA today Thank you very much, Dr. Joseph for this consult. Please call for questions.
[2018-11-21] MEDS: HYDROCODONE/APAP 5MG-325MG TAB PO PRN (12:44)
[2018-11-21] MEDS: ONDANSETRON HCL INJ 2MG/ML 2ML 2 MG/ML VIAL IV PRN ×2 (15:55→22:43)
--- NOTE | 2018-11-21 16:03 | Diagnostic Imaging Report ---
Hepatobiliary Scan with Gallbladder Ejection Fraction Clinical information: Hepatobiliary Scan with Gallbladder Ejection Fraction Clinical information: Abdominal pain; cholelithiasis Technique: Following intravenous administration of 6.6 millicuries of Tc-99m mebrofenin, dynamic images of the abdomen in the anterior projection were obtained through 32 minutes. Sincalide (CCK analog) 3.0 micrograms was administered intravenously over 30 minutes with additional imaging for determination of gallbladder ejection fraction. Discussion: Perfusion of the liver is normal. Extraction of tracer by the liver parenchyma is normal. Tracer appears promptly within the biliary tract. The gallbladder begins to fill by 25 minutes post injection of tracer and fills adequately. Tracer is seen in the small bowel by 7 minutes. The gallbladder ejection fraction with sincalide is 19% (normal greater than 40%). Impression: 1. Filling of the gallbladder excludes acute cystic duct obstruction/acute cholecystitis. 2. The decreased gallbladder ejection fraction of 19% supports the clinical diagnosis of chronic cholecystitis/gallbladder dyskinesia. Signed by: Dr. Estefani Swain M.D. on 11/21/2018 4:00 PM
--- NOTE | 2018-11-21 16:30 | NUR ---
spoke to Suzanna SOLOMON in regards to HIDA scan results and pt request to upgrade diet. states to upgrade to full liquids.
[2018-11-21] MEDS: MORPHINE SULFATE INJ 4 MG/ML INJ 1ML IV PRN ×2 (18:10→22:44)
--- NOTE | 2018-11-21 20:09 | Progress Note ---
DATE: Internal Medicine Progress Note SUBJECTIVE: The patient is doing well. No significant complaint. PHYSICAL EXAMINATION: HEART: Showed regular rhythm. No murmur or added sound. LUNGS: Clear bilaterally. ABDOMEN: Soft, nontender. No distention. No visceromegaly. EXTREMITIES: Show no evidence of cyanosis or hematoma. LABORATORY DATA: On BMP; sodium 139, potassium 3.5, chloride 111, CO2 24, BUN 10, creatinine 0.71, glucose 89. CBC; white count 3.59, hemoglobin 9.9, hematocrit 31.5, platelet count 181,000, AST 27, ALT 23, total bilirubin 0.6, alkaline phosphatase 67. FINAL IMPRESSION: 1. Episode of gallstone, which is resolved. 2. Vomiting. 3. Chronic back pain. 4. Obesity. PLAN OF TREATMENT: We are waiting for HIDA scan report. MRCP showed no evidence of any common bile duct stones. Dr. Sergio Blandon is on the case. He will do the endoscopy. The HIDA scan is negative for any type of dysfunction of gallbladder. I am going to resume the diet until we get the report of a HIDA scan and then we will decide if he needs any procedure. Continue albuterol q.4 hours. Continue Zosyn 3.375 g IV q.6, metronidazole 500 mg IV q.6 hours, morphine 2 mg IV q.4 hours as needed, Tylenol 1000 mg IV q.6 hours. Tylenol 650 mg q.4 hours p.o. as needed for pain if she is able to tolerate p.o. diet. Continue Zofran 4 mg IV q.6 hours as needed and [place] 5/325 one tablet q.4 hours as needed. MD DAVID Saucedo/MARLONL /[id number]
--- NOTE | 2018-11-21 22:10 | NUR ---
Tolerate the diet.ambulates.no resp.distress.right upper arm picc line is patent.bed locked and in lowest position.phone and call light within reach.informed to call for assistance as needed.
[2018-11-21] MEDS ORDERED: SODIUM CHLORIDE 0.9% 250ML 250 ML ONE (22:40)
--- NOTE | 2018-11-21 22:44 | NUR ---
BP CHECKED 120/62 MM OF HG.MORPHINE 2MG IV GIVEN.CHEN SC/O INSOMNIA.NOTIFIED TO .RECEIVED ORDER AMBIEN 5MG PO HS.
[2018-11-21] MEDS ORDERED: ZOLPIDEM TARTRATE 5 MG TAB PO PRN (23:00)
[2018-11-22] VITALS (8 sets, daily range): BP systolic 103–129; BP diastolic 54–87
--- NOTE | 2018-11-22 00:30 | NUR ---
is in the unit.received new orders.
--- NOTE | 2018-11-22 00:53 | NUR ---
Stool occult blood sent to the lab.Report given to Marcial Mckay.
[2018-11-22] MEDS: ONDANSETRON HCL INJ 2MG/ML 2ML 2 MG/ML VIAL IV PRN ×3 (05:36→18:18)
[2018-11-22] MEDS: MORPHINE SULFATE INJ 4 MG/ML INJ 1ML IV PRN ×2 (05:38→17:19)
[2018-11-22] MEDS: PIPER-TAZ 3.375 GM 50 ML IV SCH ×3 (05:41→18:17)
[2018-11-22 06:15] LABS: BASOPHILS % 0.4 % (0.0-1.0); EOSINOPHILS # (AUTO) 0.1 (0.0-0.4); EOSINOPHILS % 2.3 % (0.0-6.0); HEMATOCRIT 32.9 % (34.2-44.1); HEMOGLOBIN 10.5 g/dL (12.0-16.0); LYMPHOCYTES # (AUTO) 1.4 (1.0-3.2); LYMPHOCYTES % 27.6 % (18.0-39.1); MEAN CORPUSCULAR HEMOGLOBIN 26.4 pg (28-32); MEAN CORPUSCULAR HGB CONC 31.9 g/dL (31-35); MEAN CORPUSCULAR VOLUME 82.9 fL (81-99); MONOCYTES # (AUTO) 0.4 (0.2-0.8); MONOCYTES % 7.7 % (4.4-11.3); NEUTROPHILS # (AUTO) 3.2 (2.1-6.9); NEUTROPHILS % 61.6 % (38.7-80.0); PLATELET COUNT 214 x10e3/uL (140-360); RED BLOOD COUNT 3.97 x10e6/uL (3.6-5.1); RED CELL DISTRIBUTION WIDTH 16.3 % (11.7-14.4)
[2018-11-22] MEDS: METRONIDAZOLE 500MG/NS 100ML 100 ML IV SCH ×4 (06:19→23:21)
[2018-11-22 06:28] LABS: % IRON SATURATION 12 % (15-50); IRON 32 ug/dL (50-170); TOTAL IRON BINDING CAPACITY 276 ug/dL (261-478); TRANSFERRIN 197 mg/dL (180-382)
--- NOTE | 2018-11-22 07:05 | NUR ---
PT RESTING IN BED AA0X3. PT IS IN NO S.S OF DISTRESS DENIES PAIN PT HAS A RIGHT UPPER PICC LINE RUNNING WITH ABX SITE IS CLEAN AND DRY WILL CONTINUE TO MONITOR PT CLOSELY, SIDE RAILSX2, BED WHEELS LOCKED, CALL LIGHT IS WITHIN EASY REACH, INSTRUCTED TO CALL FOR ASSISTANCE IF NEEDED
--- NOTE | 2018-11-22 07:11 | NUR ---
REPORT GIVEN TO ONCOMING NURSE,WALKING ROUNDS MADE.PT RESTING IN BED WITH NO S/S OF DISTRESS.
--- NOTE | 2018-11-22 08:59 | NUR ---
SPOKE TO MD LOPEZ REGARDING PT C/O SORE MOUTH (BLISTERS ON TONGUE AND UPPER MOUTH NOTED) AND C/O DIARRHEA. NEW ORDERS RECEIVED
[2018-11-22] MEDS ORDERED: MAALOX/LIDOCAINE/BENADRYL/NYST 30 ML BTL PO PRN (09:00)
[2018-11-22] MEDS: LOPERAMIDE HCL 2 MG CAP PO PRN ×3 (11:18→17:14)
[2018-11-22] MEDS: HYDROCODONE/APAP 5MG-325MG TAB PO PRN (11:26)
--- NOTE | 2018-11-22 17:42 | NUR ---
Pulmonary Medicine DATE OF ENCOUNTER: 11/22/2018 SUBJECTIVE: abd pain mild emesis x 1 some loose stools pt with mouth ulcers HIDA 19% EF REVIEW OF SYSTEMS: no headaches, no bleeding OBJECTIVE: VITAL SIGNS: vital signs reviewed per the chart record. GENERAL: NAD, alert, and calm. HEENT: Normocephalic, atraumatic. NECK: Supple. Throat midline. LUNGS: Bilateral air entry, mild wheezes CARDIOVASCULAR: S1 and S2. No murmurs, rubs, or gallops. ABDOMEN: Soft, obese. mild discomfort at RUQ EXTREMITIES: No clubbing, no cyanosis, no edema. INTEGUMENT: No rash. No purpura. LABORATORY DATA: no new updates IMPRESSION AND PLAN: 1. Admit for symptomatic cholecystitis. 2. Febrile syndrome, sepsis. 3. Asthma exacerbation, improving 4. Obesity. 5. Active smoking. hold off on prednisone. Bronchodilators p.r.n. as needed. HiDA done follow with GI/Surgery immodium magic mouthwash Thank you very much, Dr. Joseph for this consult. Please call for questions.
--- NOTE | 2018-11-22 18:17 | Progress Note ---
DATE: Internal Medicine Progress Note SUBJECTIVE: She is doing better. PHYSICAL EXAMINATION: HEART: Showed regular rhythm. Normal S1, S2 sounds. LUNGS: Clear bilaterally. ABDOMEN: Soft, nontender. No distention. No visceromegaly. VITAL SIGNS: Blood pressure is 109/54, temperature , heart rate 84 per minute, respiratory rate 18 per minute, and oxygen saturation 95%. LABORATORY DATA: On BMP; sodium 139, potassium 3.5, chloride 111, CO2 of 24, BUN 10, creatinine 0.71, glucose 89. CBC; white count 5.18, hemoglobin 10.5, hematocrit 32.9, platelet count 214,000, AST 27, ALT 23. Total bilirubin 0.6, alkaline phosphatase 60. FINAL IMPRESSION: 1. Acalculous chronic cholecystitis. 2. Vitamin B12 deficiency. 3. Asthma. 4. Obesity. 5. Chronic pain syndrome. PLAN OF TREATMENT: We are going to start vitamin B12, 1000 mcg IM daily for once in month for lifetime, so we are going to reconsult Dr. Hill for surgery since the patient had acalculous chronic cholecystitis and dysfunctional gallbladder to see if she can qualify for surgery. Dr. Sergio Blandon has seen from the gastroenterology point of view. Continue albuterol q.4 hours as needed. Continue Zosyn, metronidazole. Continue morphine 2 mg IV q.4 hours, Ambien 5 mg at night p.r.n. for sleep, Tylenol 650 mg q.4 hours as needed. Continue Zofran 4 mg q.6 hours as needed, [place] one tablet q.4 hours as needed, loperamide 2 mg as needed for diarrhea. MD DAVID Saucedo/MARLONL /[id number]
[2018-11-23] VITALS: BP 107/63
[2018-11-23] MEDS: PIPER-TAZ 3.375 GM 50 ML IV SCH ×3 (00:26→14:00)
[2018-11-23] MEDS: MORPHINE SULFATE INJ 4 MG/ML INJ 1ML IV PRN ×2 (00:32→08:25)
[2018-11-23 04:57] VITALS: BP 114/57
[2018-11-23] MEDS: METRONIDAZOLE 500MG/NS 100ML 100 ML IV SCH ×2 (06:21→12:29)
--- NOTE | 2018-11-23 07:10 | NUR ---
PT RESTING IN BED AA0X3. PT IS IN NO S.S OF DISTRESS DENIES PAIN AT THIS TIME PT HAS A RIGHT UPPER PICC LINE RUNNING WITH ABX SITE IS CLEAN AND DRY WILL CONTINUE TO MONITOR PT CLOSELY, SIDE RAILSX2, BED WHEELS LOCKED, CALL LIGHT IS WITHIN EASY REACH, INSTRUCTED TO CALL FOR ASSISTANCE IF NEEDED
--- NOTE | 2018-11-23 07:13 | NUR ---
REPORT GIVEN TO ONCOMING NURSE,WALKING ROUNDS DONE.PT RESTING IN BED WITH NO S/S OF DISTRESS.
[2018-11-23 08:00] VITALS: BP 134/78
[2018-11-23 08:20] VITALS: BP 134/78
[2018-11-23] MEDS ORDERED: CYANOCOBALAMIN INJ 1,000 MCG/ML VIAL IM SCH (09:00)
[2018-11-23] MEDS ORDERED: IRON-VITAMIN-MINERAL CAPSULE PO SCH (09:00)
--- NOTE | 2018-11-23 12:29 | NUR ---
JETT ZUÑIGA FOR DC ORDERS ON PT . AWAITING FOR CALL BACK
[2018-11-23] MEDS ORDERED: GABAPENTIN300 MG PO (12:52)
[2018-11-23] MEDS ORDERED: PREDNISONE5 MG PO (12:52)
[2018-11-23] MEDS ORDERED: HEMOCYTE PLUS1 EACH PO (13:30)
[2018-11-23] MEDS ORDERED: LIQUID B121000 MCG/1 PO (13:32)
[2018-11-23] MEDS ORDERED: AUGMENTIN 875-1 EACH PO (13:34)
[2018-11-23] MEDS ORDERED: ULTRACET TABLE1 EACH PO (13:34)
--- NOTE | 2018-11-23 13:38 | NUR ---
Pulmonary Medicine DATE OF ENCOUNTER: 11/23/2018 SUBJECTIVE: abd pain better tolerating diet REVIEW OF SYSTEMS: no headaches, no bleeding OBJECTIVE: VITAL SIGNS: vital signs reviewed per the chart record. GENERAL: NAD, alert, and calm. HEENT: Normocephalic, atraumatic. NECK: Supple. Throat midline. LUNGS: Bilateral air entry, mild wheezes CARDIOVASCULAR: S1 and S2. No murmurs, rubs, or gallops. ABDOMEN: Soft, obese. mild discomfort at RUQ EXTREMITIES: No clubbing, no cyanosis, no edema. INTEGUMENT: No rash. No purpura. LABORATORY DATA: no new updates IMPRESSION AND PLAN: 1. Admit for symptomatic cholecystitis. 2. Febrile syndrome, sepsis. 3. Asthma exacerbation, improving 4. Obesity. 5. Active smoking. surgeon recommends nonsurgical management restart low dose prednisone. await IgE level, from outside eosinophil count was ~285/hpf i believe, ill try to get an authorization for mepolizumab Bronchodilators p.r.n. as needed. Thank you very much, Dr. Joseph for this consult. Please call for questions.
--- NOTE | 2018-11-23 14:24 | NUR ---
CALLED MD LOPEZ TO CLARIFY DC PRESCRIPTIONS AND HOME MEDS NOTIFIED MD CASTILLO OF NOT BEING ABLE TO GET A HOLD OF MD Dank ZUÑIGA . MD LOPEZ STATES IT IS OK TO SEND PT HOME SX CLEARANCE WAS DONE YESTERDAY (MD Osiris AGOSTO STATES HE DID NOT PLAN FOR ANY SX UPON ADMISSION) PICC LINE REMOVED AT THIS TIME, TIP INTACT PRESSURE DRESSING APPLIED AND TAPED PT DISCHARGE INSTRUCTIONS AND PRESCRIPTIONS GIVEN. PT VERBALIZED UNDERSTANDING PT IS NOW OFF UNIT TO HOME
--- NOTE | 2018-11-23 23:30 | Consultation ---
DATE OF CONSULTATION: 11/23/2018 REASON FOR CONSULTATION: Management of patient with abdominal pain. HISTORY OF PRESENTING ILLNESS: Ms. Garcia is a 42-year-old female with known history of asthma, obesity, and chronic pain, who was at [facility], but apparently developed fever, worsening abdominal pain, subsequently underwent ultrasound revealing stone in the gallbladder with possible acute cholecystitis. Subsequently, she was transferred to the [facility] for further care. She was seen and evaluated by Surgery as well as GI and felt to have acalculous chronic cholecystitis and dysfunctional gallbladder. Pain Medicine consultation is obtained due to worsening pain. PAST MEDICAL HISTORY: 1. Asthma. 2. Obesity. 3. Gallstones. 4. GERD. 5. Hypertension. SOCIAL HISTORY: History of smoking. No reported history of alcohol use or illicit drug use. She lives in apartment. ALLERGIES: NO KNOWN DRUG ALLERGIES. CURRENT MEDS: Reviewed as per electronic medical record. PHYSICAL EXAMINATION: VITAL SIGNS: Reviewed. LABORATORY DATA: Reviewed. ASSESSMENT: The patient is having abdominal pain secondary to presumed cholecystitis. She has been started on [place] with good improvement in pain. She is getting also morphine IV 2 mg IV q.4 hours p.r.n. RECOMMENDATION: continue with the current Pain Medicine regimen. She needs to be discharged on oral [place]. She can follow up with me in an outpatient setting. MD ALLAN Tello/KIRILL /[id number]
--- NOTE | 2018-11-24 04:29 | Discharge Summary ---
HOSPITAL COURSE: The patient is a 42-year-old female, who had a past medical history positive for hypertension, chronic pain, history of asthma, smoking, came in from [facility] because of fever, hypotension, and gallstones. When she came here to [facility], the ultrasound showed no gallstones. MRCP was done and showed no evidence of any choledocholithiasis. The HIDA scan showed evidence of chronic dysfunctional gallbladder probably due to biliary dyskinesia. The patient was seen by Dr. Sergio Blandon, Gastroenterology. She was diagnosed with iron and vitamin B12 deficiency. The patient was started on replacement of iron and vitamin B12. Dr. Dale Hill, surgeon, was consulted on the case and he recommended no surgery. The patient is going home today. PHYSICAL EXAMINATION: HEART: Showed regular rhythm. Normal S1, S2 sounds. LUNGS: Clear bilaterally. ABDOMEN: Soft. EXTREMITIES: Show no evidence of cyanosis or hematoma. IMPRESSION: 1. Episode of acute abdominal pain secondary to gallstones. 2. Dysfunctional gallbladder. 3. Asthma. 4. Obesity. 5. Chronic back pain. PLAN OF TREATMENT: The patient is going to be discharged home with Augmentin 875 mg twice a day for 10 days. Continue with iron supplementation one tablet twice a day with ferrous fumarate, folic acid, and B complex. She is going to continue with vitamin B12 1000 mcg IM daily for a week, once a week for a month and once a month for lifetime. We are going to give her also some prescription for Ultracet 1 tablet q.4 hours as needed for pain. The patient is going to follow up with her primary care physician in a week. Discharge if okay with the consultants, which include Dr. Dale Hill, surgeon; Dr. Sergio Blandon, fiscal agent; and Dr. Walker for Pulmonary. MD DAVID Saucedo/KIRILL /[id number]
[2018-11-24] MEDS ORDERED: PREDNISONE20 MG PO (16:20)
== END 2018-11-23 14:23 | disposition home or self-care (01) | DRG 872 ==
LOC: ICU 22:50 → MED/SURG 11-21 11:49
PROVIDERS: ADMIT Internal Medicine; ATTEND Internal Medicine
PROC: 02HV33Z Insertion of Infusion Device into Superior Vena Cava, Percutaneous Approach (ICD-10-PCS; principal; 2018-11-19)
DX: A41.9 Sepsis, unspecified organism (principal); J45.901 Unspecified asthma with (acute) exacerbation; Z68.42 Body mass index [BMI] 45.0-49.9, adult; K82.8 Other specified diseases of gallbladder; K80.80 Other cholelithiasis without obstruction; E66.01 Morbid (severe) obesity due to excess calories; G89.4 Chronic pain syndrome; M54.9 Dorsalgia, unspecified; I10 Essential (primary) hypertension; F17.200 Nicotine dependence, unspecified, uncomplicated; I95.9 Hypotension, unspecified; K21.9 Gastro-esophageal reflux disease without esophagitis; D50.9 Iron deficiency anemia, unspecified; D51.9 Vitamin B12 deficiency anemia, unspecified; Z28.21 Immunization not carried out because of patient refusal; Z79.52 Long term (current) use of systemic steroids
CPT/HCPCS: 36415; 36569; 71045; 74183; 76705; 78227; 80048; 80053; 81025; 82150; 82270; 82607; 82728; 82746; 83540; 83605; 84466; 85025; 85045; 87040; A9537; J2270; J2405; J2543; J3420; J7030; J7042; J7050

== ENCOUNTER 2018-11-24 14:49 | Emergency (ER) | payer MEDICARE ==
[~2018-11-24] VITALS: Ht 175.3 cm; Wt 148.3 kg
[~2018-11-24 14:49] MED LIST: ACETAMINOPHEN325 M1 PO; ALBUTEROL0.63 MG/3; AMBIEN5 MG PO; AUGMENTIN 875-1 EACH PO; BENZONATATE100 MG PO; CETIRIZINE HCL10 MG PO; COLACE100 MG PO; CYCLOBENZAPRINE5 MG PO; DEXTROSE 5% IV; DULERA 200 MCG/13 GM INH; FLUTICASONE PRO16 GM; GABAPENTIN300 MG PO; HEMOCYTE PLUS1 EACH PO; LEVOFLOXAC500 MG/100 IV; LIQUID B121000 MCG/1 PO; MELATONIN3 MG PO; MELOXICAM7.5 MG PO; METRONIDAZ500 MG/100 IV; MONTELUKAST SOD10 MG PO; MORPHINE-NS2 MG/1 ML IV; ONDANSETRON2 MG/1 ML IV; PANTOPRAZOLE SO40 MG PO; POLYETHYLENE GL17 GM PO; PREDNISONE5 MG PO; SALINE NOSE SPR45 ML; SPIRIVA18 MCG INH; ULTRACET TABLE1 EACH PO; ULTRAM50 MG PO; [UNRECOGNIZED DRUG - OTHER] IV
--- NOTE | 2018-11-24 15:40 | NUR ---
RECEIVED REPORT FROM OLIVIA MATAMOROS TO ASSUME PATIENT'S CARE. PT IN ER 3. C/O SOB, WHEEZING. FAMILY AT BEDSIDE
--- NOTE | 2018-11-24 15:56 | Diagnostic Imaging Report ---
EXAM: CHEST SINGLE (PORTABLE), AP Portable DATE: 11/24/2018 Time stamp on exam: 3:40 PM INDICATION: Chest pain, high blood pressure and wheezing. COMPARISON: None FINDINGS: LINES/TUBES: None LUNGS: No consolidations or edema. Opacity in the right lung base compatible with atelectasis. PLEURA: No effusions or pneumothorax. HEART AND MEDIASTINUM: Normal size and contour. BONES AND SOFT TISSUES: No acute findings. IMPRESSION: No acute thoracic abnormality. Signed by: Dr. Dandy Mabry DO on 11/24/2018 3:53 PM
[2018-11-24] MEDS ORDERED: ALBUTEROL/IPRATROPIUM 3 ML NEB NEB ONE (16:00)
[2018-11-24] MEDS ORDERED: PREDNISONE20 MG PO (16:20)
--- NOTE | 2018-11-24 16:40 | NUR ---
PT SAYS SHE IS FEELING BETTER AFTER THE BREATHING TREATMENT. MD PRINTED DISCHARGE PAPERS AND PT READY FOR DISCHARGE.
--- NOTE | 2018-11-24 16:47 | NUR ---
DISCHARGE INSTRUCTIONS GIVEN. F/U CARE DISCUSSED. PT AND FAMILY VERB. UNDERSTANDING.
[2018-11-24 19:32] VITALS: BP 130/87
== END 2018-11-24 16:56 | disposition home or self-care (01) ==
LOC: ER 14:49
DX: R06.00 Dyspnea, unspecified (principal); J45.30 Mild persistent asthma, uncomplicated; J44.9 Chronic obstructive pulmonary disease, unspecified; G47.30 Sleep apnea, unspecified; E66.9 Obesity, unspecified; M54.9 Dorsalgia, unspecified; G89.29 Other chronic pain
CPT/HCPCS: 71045; 93005; 94640; 99283

== ENCOUNTER 2019-02-11 20:02 | Emergency (ER) | payer MEDICARE ==
[~2019-02-11] VITALS: Ht 175.3 cm; Wt 148.3 kg
[~2019-02-11 20:02] MED LIST changes: +PREDNISONE20 MG PO
[2019-02-11] MEDS ORDERED: ALBUTEROL SULF 0.083% NEB SOLN 3 ML NEB NEB ONE (20:08)
--- OUTSIDE RECORDS SUMMARY | 2019-02-11 20:09 | XMS REPORT | Continuity of Care Document ---
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 Drug form: INJ, ONCE, Dosing Weight 136.364, kg, Priority: STAT, Start date: 07/21/17 21:54:00 RACKMAN, Stop date: 07/21/17 21:54:00 RACKMAN Inactive 07/22/2017 [facility] Levofloxacin 750 MG Oral Tablet [Levaquin] 750 mg=1 tab, PO, Q24H, X 10 day, # 10 tab, 0 Refill(s) Active 03/15/2017 [facility] benzonatate 100 mg oral capsule 100 mg=1 cap, PO, TID, PRN Cough, # 20 cap, 0 Refill(s) Active 03/15/2017 [facility] Docusate Sodium 100 MG Oral Capsule [Colace] 200 mg, 2 cap, Route: PO, Drug form: CAP, ONCE, Dosing Weight 153.665, kg, Start date: 03/15/17 10:55:00 CDT, Stop date: 03/15/17 10:55:00 CDTNotes: (Same as: Colace) (Do Not Crush) Inactive 03/15/2017 [facility] magnesium citrate 58.2 MG/ML Oral Solution 300 ml, Route: PO, Drug Form: LIQ, Dosing Weight 153.665, kg, ONCE, Start date: 03/15/17 10:55:00 CDT, Stop date: 03/15/17 10:55:00 CDTNotes: (Same as: Citrate of Magnesia) Concentration: 1.745 gm / 30 mL Inactive 03/15/2017 [facility] remove patch Route: TOP, Bedtime, Drug form: ERFILM, Start date: 03/14/17 21:00:00 CDT, Duration: 30 day, Stop date: 04/12/17 21:00:00 CDTNotes: Remove patch 12 hours after application each day. No Longer Active 03/15/2017 [facility] Lidocaine 0.05 MG/MG Transdermal Patch 1 patch, Route: TOP, Daily, Drug form: FILM, Start date: 03/14/17 11:00:00 CDT, Duration: 30 day, Stop date: 04/13/17 9:00:00 CDT No Longer Active 03/14/2017 [facility] WAIT for vancomycin trough draw prior to giving next dose WAIT for vancomycin trough draw prior to giving next dose, reminder, Drug form: MISC, Route: MISC, ONCE, 03/14/17 7:30:00 CDT, Stop date: 03/14/17 7:30:00 CDT Inactive 03/14/2017 [facility] WAIT for vancomycin trough draw prior to giving next dose WAIT for vancomycin trough draw prior to giving next dose, reminder, Drug form: MISC, Route: MISC, ONCE, 03/14/17 5:30:00 CDT, Stop date: 03/14/17 5:30:00 CDT Inactive 03/14/2017 [facility] Lovenox 40 mg, 0.4 mL, Route: SUB-Q, Drug form: INJ, Daily, Dosing Weight 153.665, kg, Start date: 03/13/17 17:00:00 CDT, Duration: 30 day, Stop date: 04/11/17 17:00:00 CDTNotes: (Same as: Lovenox) No Longer Active 03/13/2017 [facility] potassium chloride 20 mEq oral tablet, extended release 40 mEq, 2 tab, Route: PO, Drug form: ERTAB, ONCE, Dosing Weight 153.665, kg, Start date: 03/13/17 16:35:00 CDT, Stop date: 03/13/17 16:35:00 CDTNotes: (Same as: K-Dur 20) "Do Not Crush" With food and full glass of water Inactive 03/13/2017 [facility] Docusate 100 mg, 1 cap, Route: PO, Drug form: CAP, BID, Dosing Weight 125, kg, Start date: 03/13/17 9:00:00 CDT, Duration: 30 day, Stop date: 04/11/17 17:00:00 CDTNotes: (Same as: Colace) (Do Not Crush) No Longer Active 03/13/2017 [facility] budesonide-formoterol 160 mcg-4.5 mcg/inh inhalation aerosol with adapter 2 inhalation, Route: INHALATION, Drug Form: AERO/A, BID, Start date: 03/13/17 9:00:00 CDT, Duration: 30 day, Stop date: 04/11/17 17:00:00 CDTNotes: (Same as: Symbicort) WASTE: Aerosol - Return to Pharmacy No Longer Active 03/13/2017 [facility] Advair Diskus 500 mcg-50 mcg inhalation powder 1 puff, Route: INHALATION, Drug Form: AERO, Dosing Weight 125, kg, BID, Start date: 03/13/17 9:00:00 CDT, Duration: 30 day, Stop date: 04/11/17 17:00:00 CDT No Longer Active 03/13/2017 [facility] pneumococcal capsular polysaccharide type 1 vaccine / pneumococcal capsular polysaccharide type 10A vaccine / pneumococcal capsular polysaccharide type 11A vaccine / pneumococcal capsular polysaccharide type 12F vaccine / pneumococcal capsular polysacchar 0.5 mL, Route: IM, Drug Form: INJ, Daily, Start date: 03/13/17 9:00:00 CDT, Duration: 1 doses or times, Stop date: 03/13/17 9:00:00 CDTNotes: (Same as: Pneumovax 23) Refrigerate Inactive 03/13/2017 [facility] vancomycin 1.25 gm, 250 mL, Route: IVPB, Drug form: INJ, ABXQ8H, Start date: 03/13/17 5:00:00 CDT, Duration: 30 day, Stop date: 04/12/17 0:00:00 CDT, ABX Indication: PneumoniaNotes: TIME CRITICAL MEDICATION Same as: Vancocin-NS (premixed) Infusion rate 2001 mg: infuse over 2.5 hours No Longer Active 03/13/2017 [facility] Albuterol 0.833 MG/ML / Ipratropium [place] 0.167 MG/ML Inhalant Solution [DuoNeb] 3 mL, Route: NEB, Drug Form: SOLN, Dosing Weight 125, kg, RQ6H, Start date: 03/13/17 2:00:00 CDT, Duration: 30 day, Stop date: 04/11/17 20:00:00 CDTNotes: (Same as: Duoneb) No Longer Active 03/13/2017 [facility] Zosyn 3.375 gm, Route: IVPB, ABXQ8H, Dosing Weight 125, kg, Start date: 03/13/17 2:00:00 CDT, Duration: 5 day, Stop date: 03/17/17 18:00:00 CDT, ABX Indication: PneumoniaNotes: (Same as: Zosyn) Dosing based on Piperacillin component MEDICATION WASTE Product Size: 3375 mg Product Wasted: ___ mg No Longer Active 03/13/2017 [facility] heparin 7,500 unit, 1.5 mL, Route: SUB-Q, Drug form: INJ, Q8H, Dosing Weight 125, kg, Consider for obese patients, Start date: 03/13/17 0:00:00 CDT, Duration: 30 day, Stop date: 04/11/17 16:00:00 CDTNotes: porcine heparin Inactive 03/13/2017 [facility] Benadryl 25 mg, 0.5 mL, Route: IV, Drug form: INJ, Q6H, Dosing Weight 153.665, kg, PRN as needed for allergy symptoms, Start date: 03/12/17 23:37:00 CDT, Duration: 30 day, Stop date: 04/11/17 23:36:00 CDTNotes: (Same as: Benadryl) No Longer Active 03/13/2017 [facility] Singulair 10 mg, 1 tab, Route: PO, Drug form: TAB, Bedtime, Dosing Weight 125, kg, Start date: 03/12/17 21:00:00 CDT, Duration: 30 day, Stop date: 04/10/17 21:00:00 CDTNotes: (Same as:Singulair) No Longer Active 03/13/2017 [facility] Vancomycin 1 ea, Route: MISC, ONCALL, Dosing Weight 125, kg, Start date: 03/12/17 21:00:00 CDT, day, Stop date: 03/12/17 21:00:00 CDT, Pharmacy to dose, ABX Indication: Pneumonia Inactive 03/13/2017 [facility] vancomycin 1.5 gm, 250 mL, Route: IVPB, Drug form: INJ, ONCE, Start date: 03/12/17 21:00:00 CDT, Stop date: 03/12/17 21:00:00 CDT, ABX Indication: PneumoniaNotes: TIME CRITICAL MEDICATION Same as: Vancocin-NS (pre mixed) Infusion rate 2001 mg: infuse over 2.5 hours Inactive 03/13/2017 [facility] Trazodone 50 mg, 1 tab, Route: PO, Drug form: TAB, Bedtime, Dosing Weight 153.665, kg, PRN Insomnia, Start date: 03/12/17 20:33:00 CDT, Duration: 30 day, Stop date: 04/11/17 20:32:00 CDTNotes: (Same As: Desyrel) No Longer Active 03/13/2017 [facility] Tessalon Perles 100 mg, 1 cap, Route: PO, Drug form: CAP, TID, Dosing Weight 153.665, kg, PRN Cough, Start date: 03/12/17 20:32:00 CDT, Duration: 30 day, Stop date: 04/11/17 20:31:00 CDTNotes: (Same As: Tessalon Per les) "Do Not Crush" No Longer Active 03/13/2017 [facility] senna 8.6 mg oral tablet 8.6 mg, 1 tab, Route: PO, Drug Form: TAB, Dosing Weight 153.665, kg, BID, PRN Constipation, Start date: 03/12/17 20:32:00 CDT, Duration: 30 day, Stop date: 04/11/17 20:31:00 CDTNotes: (Same as: Senokot) No Longer Active 03/13/2017 [facility] Acetaminophen 325 MG / Hydrocodone Bitartrate 10 MG Oral Tablet [[place] 10/325] 1 tab, Route: PO, Drug Form: TAB, Dosing Weight 125, kg, Q6H, PRN Pain Score 4-6, Start date: 03/12/17 20:30:00 CDT, Duration: 30 day, Stop date: 04/11/17 20:29:00 CDTNotes: Do not exceed 4gm/day of acetaminophen. (Same as: [place] 325/10) No Longer Active 03/13/2017 [facility] Morphine 2 mg, 1 mL, Route: IVP, Drug form: SOLN, Q4H, Dosing Weight 125, kg, PRN Pain Score 7-10, Start date: 03/12/17 20:29:00 CDT, Duration: 30 day, Stop date: 04/11/17 20:28:00 CDT No Longer Active 03/13/2017 [facility] Ondansetron 4 mg, 2 mL, Route: IVP, Drug form: INJ, Q6H, Dosing Weight 125, kg, PRN Nausea & Vomiting, Start date: 03/12/17 20:29:00 CDT, Duration: 30 day, Stop date: 04/11/17 20:28:00 CDTNotes: (Same as: [place]) MEDICATION WASTE Product Size: 4 mg Product Wasted: ___ mg No Longer Active 03/13/2017 [facility] Acetaminophen 650 mg, 2 tab, Route: PO, Drug form: TAB, Q4H, Dosing Weight 125, kg, PRN Pain 1-3/Temp > 100.4 F, Start date: 03/12/17 20:29:00 CDT, Duration: 30 day, Stop date: 04/11/17 20:28:00 CDTNotes: Do not e xceed 4 gm/day. (Same as: Tylenol) No Longer Active 03/13/2017 [facility] Acetaminophen 325 MG / Hydrocodone Bitartrate 5 MG Oral Tablet 1 tab, Route: PO, Dosing Weight 125, kg, Q4H, PRN Pain Score 4-6, Start date: 03/12/17 20:29:00 CDT, Duration: 30 day, Stop date: 04/11/17 20:28:00 CDT Inactive 03/13/2017 [facility] Advair Diskus 500 mcg-50 mcg inhalation powder 1 puff, INHALATION, BID, 0 Refill(s) Active 03/13/2017 [facility] ibuprofen 800 mg oral tablet 800 mg=1 tab, PO, BID, PRN Pain Score 1-5, 0 Refill(s) Active 03/13/2017 [facility] naproxen sodium 550 mg oral tablet 550 mg=1 tab, PO, Daily, 0 Refill(s) Active 03/13/2017 [facility] Sodium Chloride 0.9% (Bolus) IV 1,000 mL, 1000 ml/hr, Infuse Over: 1 hr, Route: IV, 1,000, Drug form: INJ, ONCE, Priority: STAT, Dosing Weight 125 kg, Start date: 03/12/17 18:52:00 CDT, Duration: 1 doses or times, Stop date: 03/12/17 18:52:00 CDT Inactive 03/12/2017 [facility] Vancomycin 1,000 mg, Route: IVPB, ONCE, Dosing Weight 125, kg, Priority: STAT, Start date: 03/12/17 17:25:00 CDT, Duration: 1 doses or times, Stop date: 03/12/17 17:25:00 CDT, ABX Indication: BacteremiaNotes: TIME CRITICAL MEDICATION (Same As: Vancocin) Infusion rate 2001 mg: infuse over 2.5 hours MEDICATION WASTE Product Size: 1000 mg Product Wasted: ___ mg Inactive 03/12/2017 [facility] Piperacillin / tazobactam 3.375 gm, Route: IVPB, ONCE, Dosing Weight 125, kg, Priority: STAT, Start date: 03/12/17 17:25:00 CDT, Duration: 1 doses or times, Stop date: 03/12/17 17:25:00 CDT, ABX Indication: BacteremiaNotes: (Same as: Zosyn) Dosing based on Piperacillin component MEDICATION WASTE Product Size: 3375 mg Product Wasted: ___ mg Inactive 03/12/2017 [facility] Ondansetron 4 mg, 2 mL, Route: IVP, Drug form: INJ, ONCE, Dosing Weight 125, kg, Priority: STAT, Start date: 03/12/17 15:57:00 CDT, Stop date: 03/12/17 15:57:00 CDTNotes: (Same as: Zofran) MEDICATION WASTE Product Size: 4 mg Product Wasted: ___ mg Inactive 03/12/2017 [facility] Morphine 4 mg, 1 mL, Route: IVP, Drug form: SOLN, ONCE, Dosing Weight 125, kg, Priority: STAT, Start date: 03/12/17 15:57:00 CDT, Stop date: 03/12/17 15:57:00 CDTNotes: (Same as:MORPhine Sulfate) Inactive 03/12/2017 [facility] Acetaminophen 300 MG / Codeine Phosphate 30 MG Oral Tablet [Tylenol with Codeine #3] 1 - 2 tab, PO, Q6H, PRN Pain, X 4 day, # 20 tab, 0 Refill(s) Active 11/05/2016 [facility] Morphine 4 mg, 1 mL, Route: IVP, Drug form: SOLN, ONCE, Dosing Weight 136.364, kg, Priority: STAT, Start date: 11/04/16 22:50:00 CDT, Stop date: 11/04/16 22:50:00 CDTNotes: (Same as:MORPhine Sulfate) No Longer Active 11/05/2016 [facility] Saline Flush 0.9% 10 mL, Route: IVP, Drug Form: INJ, Dosing Weight 136.364, kg, PRN, PRN Line Flush, Start date: 11/04/16 22:36:00 CDT, Duration: 30 day, Stop date: 12/04/16 22:35:00 CDTNotes: (Same as: BD Posiflush) No Longer Active 11/05/2016 [facility] Ketorolac Tromethamine 10 MG Oral Tablet 10 mg=1 tab, PO, Q6H, PRN Pain Score 6-10, X 3 day, # 12 tab, 0 Refill(s) Active 05/17/2016 [facility] Ketorolac 15 mg, Route: IVP, Drug form: INJ, ONCE, Dosing Weight 136.364, kg, Priority: STAT, Start date: 05/17/16 3:24:00 RACKMAN, Stop date: 05/17/16 3:24:00 RACKMAN Inactive 05/17/2016 [facility] Acetaminophen 300 MG / Codeine Phosphate 30 MG Oral Tablet [Tylenol with Codeine #3] 1 - 2 tab, PO, Q6H, PRN Pain, X 4 day, # 32 tab, 0 Refill(s) Active 05/13/2016 [facility] Motrin 800 mg, Route: PO, Drug form: TAB, ONCE, Dosing Weight 143.636, kg, Priority: STAT, Start date: 05/13/16 13:14:00 RACKMAN, Stop date: 05/13/16 13:14:00 RACKMAN Inactive 05/13/2016 [facility] Morphine 4 mg, Route: IVP, ONCE, Dosing Weight 143.636, kg, Priority: STAT, Start date: 05/13/16 11:32:00 RACKMAN, Stop date: 05/13/16 11:32:00 RACKMAN Inactive 05/13/2016 [facility] Morphine 4 mg, Route: IVP, ONCE, Dosing Weight 143.636, kg, Priority: STAT, Start date: 05/13/16 10:06:00 RACKMAN, Stop date: 05/13/16 10:06:00 RACKMAN Inactive 05/13/2016 [facility] Zofran 4 mg, Route: IVP, Drug form: INJ, ONCE, Dosing Weight 143.636, kg, Priority: STAT, Start date: 05/13/16 10:06:00 RACKMAN, Stop date: 05/13/16 10:06:00 RACKMAN Inactive 05/13/2016 [facility] Tylenol 1,000 mg, 2 tab, Route: PO, Drug form: TAB, ONCE, Dosing Weight 143.636, kg, Start date: 05/13/16 9:13:00 RACKMAN, Stop date: 05/13/16 9:13:00 CSTNotes: Max acetaminophen 4000 mg/day (4 gm/day). (Same as: Tylenol Extra Strength) Inactive 05/13/2016 [facility] Lactated Ringers 1,000 mL 1,000 mL, Rate: 999 ml/hr, Infuse over: 1 hr, Route: IV, Dosing Weight 143.636 kg, Total Volume: 1,000, Start date: 05/13/16 9:12:00 RACKMAN, Duration: 1 hr, Stop date: 05/13/16 10:11:00 RACKMAN Inactive 05/13/2016 [facility] Levofloxacin 750 mg, 150 mL, Route: IVPB, Drug form: SOLN, ONCE, Dosing Weight 143.636, kg, Priority: STAT, Start date: 05/13/16 9:11:00 RACKMAN, Stop date: 05/13/16 9:11:00 CSTNotes: (Same as:Levaquin) Inactive 05/13/2016 [facility] Saline Flush 0.9% 10 mL, Route: IVP, Drug Form: INJ, Dosing Weight 143.636, kg, PRN, PRN Line Flush, Start date: 05/13/16 9:11:00 RACKMAN, Duration: 30 day, Stop date: 06/12/16 9:10:00 CSTNotes: (Same as: BD Posiflush) Inactive 05/13/2016 [facility] Acetaminophen 300 MG / Codeine Phosphate 60 MG Oral Tablet [Tylenol with Codeine #4] 1 tab, PO, Q4H, PRN Pain, X 7 day, # 12 tab, 0 Refill(s) Active 04/20/2016 [facility] amoxicillin 500 mg oral tablet 500 mg=1 tab, PO, TID, X 10 day, # 30 tab, 0 Refill(s) Active 04/20/2016 [facility] Acetaminophen 325 MG / Hydrocodone Bitartrate 10 MG Oral Tablet [[place] 10/325] 1 tab, Route: PO, Drug Form: TAB, Dosing Weight 140.909, kg, ONCE, STAT, Start date: 04/19/16 21:59:00 RACKMAN, Stop date: 04/19/16 21:59:00 CSTNotes: Do not exceed 4gm/day of acetaminophen. (Same as: [place] 325/10) Inactive 04/20/2016 [facility] Sodium Chloride 0.154 MEQ/ML Injectable Solution 1,000 mL, 1,000 ml/hr, Infuse Over: 1 hr, Route: IV, 1,000, Drug form: INJ, ONCE, Priority: STAT, Dosing Weight 140.909 kg, Start date: 04/19/16 21:59:00 RACKMAN, Duration: 1 doses or times, Stop date: 04/19/16 21:59:00 RACKMAN Inactive 04/20/2016 [facility] Ondansetron 4 MG Disintegrating Tablet [Zofran] 4 mg=1 tab, PO, Q8H, PRN as needed for nausea/vomiting, X 3 day, # 12 tab, 0 Refill(s) Active 01/07/2016 [facility] Acetaminophen 300 MG / butalbital 50 MG / Caffeine 40 MG Oral Capsule [Fioricet] 1 cap, PO, Q4H, PRN PRN Headache, Do not exceed 6 capsules in 24 hours, X 5 day, # 30 cap, 0 Refill(s) Active 01/07/2016 [facility] Sodium Chloride 0.154 MEQ/ML Injectable Solution 1,000 mL, 1,000 ml/hr, Infuse Over: 1 hr, Route: IV, ONCE, Priority: STAT, Dosing Weight 143.636 kg, Start date: 01/07/16 2:32:00 CDT, Duration: 1 doses or times, Stop date: 01/07/16 2:32:00 CDT Inactive 01/07/2016 [facility] Metoclopramide 10 mg, Route: IVP, Drug form: INJ, ONCE, Dosing Weight 143.636, kg, Priority: STAT, Start date: 01/07/16 2:32:00 CDT, Stop date: 01/07/16 2:32:00 CDT Inactive 01/07/2016 [facility] Diphenhydramine 25 mg, Route: IVP, ONCE, Dosing Weight 143.636, kg, Priority: STAT, Start date: 01/07/16 2:32:00 CDT, Stop date: 01/07/16 2:32:00 CDT Inactive 01/07/2016 [facility] Sodium Chloride 0.154 MEQ/ML Injectable Solution 1,000 mL, 1,000 ml/hr, Infuse Over: 1 hr, Route: IV, 1,000, Drug form: INJ, ONCE, Priority: STAT, Dosing Weight 140 kg, Start date: 12/20/15 2:16:00 CDT, Duration: 1 doses or times, Stop date: 12/20/15 2:16:00 CDT Inactive 12/20/2015 [facility] Sulfamethoxazole 800 MG / Trimethoprim 160 MG Oral Tablet [Bactrim] 1 tab, PO, BID, X 10 day, # 20 tab, 0 Refill(s) Active 06/22/2015 [facility] Morphine 4 mg, Route: IM, Drug form: INJ, ONCE, Dosing Weight 127.273, kg, Priority: STAT, Start date: 06/22/15 9:53:00, Stop date: 06/22/15 9:53:00 Inactive 06/22/2015 [facility] Ibuprofen 800 MG Oral Tablet [Motrin] 800 mg=1 tab, PO, Q8H, Pain, Take with food, # 15 tab, 0 Refill(s)Special Instructions: Take with food Active 08/22/2014 [facility] Cyclobenzaprine hydrochloride 10 MG Oral Tablet [Flexeril] 10 mg=1 tab, PO, BID, # 6 tab, 0 Refill(s) Active 08/22/2014 [facility] Flexeril 10 mg, 1 tab, Route: PO, Drug form: TAB, ONCE, Dosing Weight 122.727, kg, Priority: STAT, Start date: 08/22/14 12:01:00, Stop date: 08/22/14 12:01:00Notes: (Same As: Flexeril) Inactive 08/22/2014 [facility] Acetaminophen 325 MG / Hydrocodone Bitartrate 5 MG Oral Tablet [[place] 5/325] 1 tab, Route: PO, Drug Form: TAB, Dosing Weight 122.727, kg, ONCE, STAT, Start date: 08/22/14 12:01:00, Stop date: 08/22/14 12:01:00Notes: (Same as: [place] 325/5) Do not exceed 4gm/day of acetaminophen. Inactive 08/22/2014 [facility] cyclobenzaprine 10 mg oral tablet 10 mg=1 tab, PO, TID, for spasm, # 30 tab, 0 Refill(s) Active 01/12/2014 [facility] ibuprofen 800 mg oral tablet 800 mg=1 tab, PO, Q8H, Pain, Take with food, # 30 tab, 0 Refill(s)Special Instructions: Take with food Active 01/12/2014 [facility] Motrin 800 mg, Route: PO, Drug form: TAB, ONCE, Dosing Weight 127.273, kg, Priority: STAT, Start date: 01/12/14 9:36:00, Stop date: 01/12/14 9:36:00 Inactive 01/12/2014 [facility] Flexeril 10 mg, Route: PO, ONCE, Dosing Weight 127.273, kg, Priority: STAT, Start date: 01/12/14 8:12:00, Stop date: 01/12/14 8:12:00 Inactive 01/12/2014 [facility] Motrin 800 mg, Route: PO, Drug form: TAB, ONCE, Dosing Weight 127.273, kg, Priority: STAT, Start date: 01/12/14 8:12:00, Stop date: 01/12/14 8:12:00 Inactive 01/12/2014 [facility] albuterol 0.083% inhalation solution 2.49 mg=3 mL, NEB, Q6H, # 120 ea, 0 Refill(s) Active s 07/17/2013 [facility] predniSONE 20 mg oral tablet 40 mg=2 tab, PO, Daily, # 8 tab, 0 Refill(s) Active 07/17/2013 [facility] Tylenol with Codeine 120 mg-12 mg/5 mL oral liquid 15 mL, PO, TID, pain, # 120 mL, 0 Refill(s) Active s 07/17/2013 [facility] Azithromycin 5 Day Dose Pack 250 mg oral tablet 250 mg, PO, Daily, Take 2 tablets by mouth the first day then 1 tablet by mouth days 2- 5, # 6 tab, 0 Refill(s)Take 2 tablets by mouth the first day then 1 tablet by mouth days 2-5 Active s 07/17/2013 [facility] Saline Flush 0.9% 5 mL, Route: IVP, Drug Form: INJ, Dosing Weight 140.909, kg, PRN, PRN Line Flush, Start date: 07/17/13 11:07:00, Duration: 1 day, Stop date: 07/18/13 11:06:00(Same as: BD Posiflush) Inactive s 07/17/2013 [facility] methylPREDNISolone SODium SUCCinate 125 mg, Route: IVP, ONCE, Dosing Weight 140.909, kg, Priority: STAT, Start date: 07/17/13 11:07:00, Stop date: 07/17/13 11:07:00 Inactive s 07/17/2013 [facility] DuoNeb inhalation solution 3 ml, Route: INHALATION, Drug Form: SOLN, Dosing Weight 140.909, kg, PRN, PRN Respiratory Protocol, Start date: 07/17/13 10:54:00, Duration: 1 doses or times, Stop date: Limited # of times(Same as: Duoneb) Inactive s 07/17/2013 [facility] [place] 5/325 oral tablet 1 tab, PO, Q4H, PRN, 20 tab, for pain, Substitution Allowed, Maintenance, TAB PO Active Larios 07/02/2012 [facility] clindamycin 150 mg oral capsule 150 mg, 1 cap, PO, Q6H, 20 cap, Substitution Allowed, CAP PO Active Seeley 07/02/2012 [facility] Saline Flush 0.9% 5 mL, Route: IVP, Drug Form: INJ, Dosing Weight 136.364, kg, Q8H, PRN Line Flush, Start date: 07/01/12 22:10:00, Duration: 30 day, Stop date: 07/31/12 22:09:00, Administer at least once every 8 hoursAdminister at least once every 8 hours IVP No Longer Active Seeley 07/02/2012 [facility] Demerol HCl 50 mg, 1 mL, Route: IM, Drug form: INJ, ONCE, Dosing Weight 136.364, kg, Start date: 04/28/12 16:20:00, Stop date: 04/28/12 16:20:00 IM No Longer Active Hawkins 04/28/2012 [facility] Dilaudid 0.5 mg, 0.25 mL, Route: IVP, Drug form: INJ, ONCE, Dosing Weight 136.364, kg, Start date: 04/28/12 15:37:00, Stop date: 04/28/12 15:37:00 IVP Active Gallacher 04/28/2012 [facility] acetaminophen 1,000 mg, 100 mL, Route: IVPB, Drug form: INJ, ONCE, Dosing Weight 136.364, kg, Start date: 04/28/12 15:29:00, Stop date: 04/28/12 15:29:00 IVPB Active 04/28/2012 [facility] Sublimaze 50 microgram, Route: IRRIG, ONCE, Dosing Weight 136.364, kg, Start date: 04/28/12 15:29:00, Stop date: 04/28/12 15:29:00 IRRIG No Longer Active Sandie 04/28/2012 [facility] cefazolin + Sodium Chloride 0.9% IV 100 mL 1 gm, Route: IVPB, PRE OP, Start date: 04/28/12 13:00:00, Duration: 12 hr, Stop date: 04/29/12 0:59:00 IVPB No Longer Active Federico 04/28/2012 [facility] lidocaine 0.1 mL, Route: IV, Drug form: INJ, ONCALL, Start date: 04/28/12 9:00:00, Duration: 12 hr, Stop date: 04/28/12 20:59:00 IV No Longer Active Gallacher 04/28/2012 [facility] Lactated Ringers Injection IV 1,000 mL 1,000 mL, Rate: 100 ml/hr, Infuse over: 10 hr, Route: IV, kg, Total Volume: 1,000, Start date: 04/28/12 9:00:00, Duration: 12 hr, Stop date: 04/28/12 20:59:00 IV No Longer Active [place] 04/28/2012 [facility] predniSONE 40 mg, 2 tab, Route: PO, Drug form: TAB, Daily, Start date: 04/26/12 9:00:00, Duration: 30 day, Stop date: 05/25/12 9:00:00 PO No Longer Active Ravenel 04/26/2012 [facility] Singulair 10 mg, 1 tab, Route: PO, Drug form: TAB, Daily, Start date: 04/25/12 21:00:00, Duration: 30 day, Stop date: 05/24/12 21:00:00 PO No Longer Active Ravenel 04/26/2012 [facility] acetaminophen-oxycodone 325 mg-10 mg oral tablet 1 tab, Route: PO, Drug Form: TAB, Q4H, PRN Other -See Comment, Start date: 04/25/12 10:35:00, Duration: 30 day, Stop date: 05/25/12 10:34:00 PO No Longer Active Eunice 04/25/2012 [facility] Lovenox 40 mg, 0.4 mL, Route: SUB-Q, Drug form: INJ, Daily, Start date: 04/25/12 9:00:00, Duration: 30 day, Stop date: 05/24/12 9:00:00 SUB-Q No Longer Active Ravenel 04/25/2012 [facility] Ambien 5 mg, 1 tab, Route: PO, Drug form: TAB, Bedtime, PRN Sleep, Start date: 04/24/12 20:36:00, Duration: 30 day, Stop date: 05/24/12 20:35:00 PO No Longer Active Ravenel 04/25/2012 [facility] Protonix 40 mg, 1 tab, Route: PO, Drug form: ECTAB, BID- Before Meals, Start date: 04/23/12 16:30:00, Duration: 30 day, Stop date: 05/23/12 7:30:00 PO No Longer Active Latasha 04/23/2012 [facility] Esgic 2 tab, Route: PO, Drug Form: TAB, ONCE, Start date: 04/23/12 12:00:00, Stop date: 04/23/12 12:00:00 PO No Longer Active Ravenel 04/23/2012 [facility] ferrous sulfate 325 mg, 1 tab, Route: PO, Drug form: TAB, BID, Start date: 04/23/12 12:00:00, Duration: 30 day, Stop date: 05/23/12 9:00:00 PO No Longer Active Ravenel 04/23/2012 [facility] Sodium Chloride 0.9% IV 1,000 mL 1,000 mL, Rate: 125 ml/hr, Infuse over: 8 hr, Route: IV, kg, Total Volume: 1,000, Start date: 04/23/12 12:00:00, Duration: 30 day, Stop date: 05/23/12 11:59:00 IV No Longer Active Ravenel 04/23/2012 [facility] multivitamin 1 tab, Route: PO, Drug Form: TAB, BID, Start date: 04/23/12 12:00:00, Duration: 3 doses or times, Stop date: 04/24/12 17:00:00 PO No Longer Active Ravenel 04/23/2012 [facility] docusate sodium 100 mg oral capsule 100 mg, 1 cap, Route: PO, Drug form: CAP, BID, PRN Constipation, Start date: 04/23/12 11:14:00, Duration: 30 day, Stop date: 05/23/12 11:13:00 [facility]: PO, Drug Form: TAB, Q6H, PRN Pain, Start date: 04/23/12 11:13:00, Duration: 30 day, Stop date: 05/23/12 11:12:00 PO No Longer Active Ravenel 04/23/2012 [facility] Esgic 1 tab, Route: PO, Drug Form: TAB, Q6H, PRN Pain, Start date: 04/23/12 11:12:00, Duration: 30 day, Stop date: 05/23/12 11:11:00 PO No Longer Active Cmqueen 04/23/2012 [facility] methylPREDNISolone 60 mg, 0.96 mL, Route: IV, Drug form: INJ, Q8H, Start date: 04/23/12 9:00:00, Duration: 3 doses or times, Stop date: 04/24/12 1:00:00 IV No Longer Active Lili 04/23/2012 [facility] fluticasone-salmeterol 250 mcg-50 mcg MDI 1 inhalation, Route: INHALER, Drug Form: AERO, RBID, Start date: 04/22/12 20:00:00, Duration: 30 day, Stop date: 05/22/12 8:00:00 INHALER No Longer Active Lili 04/23/2012 [facility] Lovenox 140 mg, 0.93 mL, Route: SUB-Q, Drug form: INJ, [id number], Start date: 04/22/12 17:00:00, Duration: 30 day, Stop date: 05/22/12 5:00:00 SUB-Q No Longer Active Ravenel 04/22/2012 [facility] methylPREDNISolone 40 mg, 1 mL, Route: IV, Drug form: INJ, Q8H, Start date: 04/22/12 16:00:00, Duration: 30 day, Stop date: 05/22/12 8:00:00 IV No Longer Active [facility] 04/22/2012 [facility] Zithromax IVPB, 166.67 ml/hr, [id number], Start date: 04/22/12 14:00:00, Duration: 30, 250 ml IVPB No Longer Active [facility] 04/22/2012 [facility] Rocephin + Sodium Chloride 0.9% IV 100 mL 1 gm, Route: IVPB, [id number], Start date: 04/22/12 13:00:00, Duration: 30 day, Stop date: 05/21/12 13:00:00 IVPB No Longer Active [facility] 04/22/2012 [facility] DuoNeb inhalation solution 3 mL, Route: NEB, Drug Form: SOLN, RQ4H, Start date: 04/22/12 11:00:00, Duration: 30 day, Stop date: 05/22/12 7:00:00 NEB No Longer Active Ravenel 04/22/2012 [facility] K-Dur 10 30 mEq, 3 tab, Route: PO, Drug form: ERTAB, Q1H, Start date: 04/22/12 9:00:00, Duration: 2 doses or times, Stop date: 04/22/12 10:00:00 PO No Longer Active Ravenel 04/22/2012 [facility] Levaquin 750 mg, 150 mL, Route: IV, Drug form: SOLN, [id number], Start date: 04/22/12 9:00:00, Duration: 30 day, Stop date: 05/21/12 9:00:00 IV No Longer Active Lili 04/22/2012 [facility] Coumadin 7.5 mg, 1 tab, Route: PO, Drug form: TAB, Q5PM, Start date: 04/22/12 9:00:00, Duration: 30 day, Stop date: 05/21/12 17:00:00 PO No Longer Active Ravenel 04/22/2012 [facility] Protonix 40 mg, 1 tab, Route: PO, Drug form: ECTAB, Before Dinner, Start date: 04/22/12 9:00:00, Duration: 30 day, Stop date: 05/21/12 16:30:00 PO No Longer Active Ravenel 04/22/2012 [facility] lidocaine-prilocaine topical 1 appl, Route: TOP, ONCALL, Drug form: CRM, Start date: 04/22/12 9:00:00, Duration: 2 day, Stop date: 04/24/12 8:59:00 TOP No Longer Active Ravenel 04/22/2012 [facility] Tessalon Perles 200 mg, 2 cap, Route: PO, Drug form: CAP, Q8H-06, Start date: 04/22/12 9:00:00, Duration: 30 day, Stop date: 05/22/12 6:00:00 PO No Longer Active Ravenel 04/22/2012 [facility] methylPREDNISolone 100 mg, 1.6 mL, Route: IV, Drug form: INJ, Q8H, Start date: 04/22/12 9:00:00, Duration: 3 doses or times, Stop date: 04/23/12 1:00:00 IV No Longer Active Lili 04/22/2012 [facility] Zofran 4 mg, 2 mL, Route: IVP, Drug form: INJ, Q6H, PRN Nausea, Priority: STAT, Start date: 04/22/12 8:46:00, Duration: 30 day, Stop date: 05/22/12 8:45:00 IVP No Longer Active [place]el 04/22/2012 [facility] acetaminophen-hydrocodone 325 mg-10 mg oral tablet 1 tab, Route: PO, Drug Form: TAB, Q6H, PRN Pain, Start date: 04/22/12 8:46:00, Duration: 30 day, Stop date: 05/22/12 8:45:00 PO No Longer Active Ravenel 04/22/2012 [facility] tramadol 50 mg oral tablet 100 mg, 2 tab, Route: PO, Drug form: TAB, Q6H, PRN Pain, Start date: 04/22/12 8:46:00, Duration: 30 day, Stop date: 05/22/12 8:45:00 PO No Longer Active Ravenel 04/22/2012 [facility] morphine Sulfate 2 mg, 1 mL, Route: IV, Drug form: INJ, Q4H, PRN Pain, Start date: 04/22/12 8:45:00, Duration: 30 day, Stop date: 05/22/12 8:44:00 IV No Longer Active Ravenel 04/22/2012 [facility] Xanax 0.5 mg, 1 tab, Route: PO, Drug form: TAB, QID, PRN Anxiety, Start date: 04/22/12 8:38:00, Duration: 30 day, Stop date: 05/22/12 8:37:00 PO No Longer Active Ravenel 04/22/2012 [facility] codeine-guaifenesin 10 mL, Route: PO, Drug Form: LIQ, Q6H, PRN Cough, Start date: 04/22/12 8:36:00, Duration: 30 day, Stop date: 05/22/12 8:35:00 PO No Longer Active Ravenel 04/22/2012 [facility] Sodium Chloride 0.45% IV 1,000 mL 1,000 mL, Rate: 100 ml/hr, Infuse over: 10 hr, Route: IV, kg, Total Volume: 1,000, Start date: 04/22/12 8:36:00, Duration: 15 hr, Stop date: 04/22/12 23:35:00 IV No Longer Active Ravenel 04/22/2012 [facility] DuoNeb inhalation solution 3 mL, Route: NEB, Drug Form: SOLN, PRN, PRN Wheezing, Start date: 04/22/12 8:32:00, Duration: 30 day, Stop date: 05/22/12 8:31:00 NEB No Longer Active Ravenel 04/22/2012 [facility] morphine Sulfate 2 mg, Route: IVP, ONCE, Dosing Weight 136.364, kg, Priority: STAT, Start date: 04/22/12 7:40:00, Stop date: 04/22/12 7:40:00 IVP No Longer Active [place]el 04/22/2012 [facility] Dilaudid 1 mg, 1 mL, Route: IV, Drug form: INJ, ONCE, Dosing Weight 136.364, kg, Start date: 04/22/12 5:37:00, Stop date: 04/22/12 5:37:00 IV No Longer Active [place] 04/22/2012 [facility] Lovenox 130 mg, 0.87 mL, Route: SUB-Q, Drug form: INJ, ONCE, Dosing Weight 136.364, kg, Priority: STAT, Start date: 04/22/12 5:16:00, Stop date: 04/22/12 5:16:00 SUB-Q No Longer Active [place] 04/22/2012 [facility] acetaminophen 1,000 mg, 2 tab, Route: PO, Drug form: TAB, ONCE, Dosing Weight 136.364, kg, Start date: 04/22/12 1:43:00, Stop date: 04/22/12 1:43:00 PO No Longer Active [place] 04/22/2012 [facility] DuoNeb inhalation solution 3 mL, Route: INHALATION, Drug Form: SOLN, Dosing Weight 136.364, kg, Q15Min, PRN Wheezing, Start date: 04/22/12 1:42:00, Duration: 3 doses or times, Stop date: Limited # of times INHALATION No Longer Active [place] 04/22/2012 [facility] predniSONE 60 mg, 3 tab, Route: PO, Drug form: TAB, ONCE, Dosing Weight 136.364, kg, Priority: STAT, Start date: 04/22/12 1:40:00, Stop date: 04/22/12 1:40:00 PO No Longer Active [place] 04/22/2012 [facility] Colace 100 mg oral capsule 100 mg, 1 cap, PO, BID, PRN, 20 cap, Constipation, Substitution Allowed, CAP PO Active Teja 04/21/2012 [facility] [place] 10/325 oral tablet 1-2 tab, PO, Q4-6H, PRN, 30 tab, Pain, Substitution Allowed, Maintenance PO Active Teja 04/21/2012 [facility] hydromorphone 2 mg, 1 mL, Route: IM, Drug form: INJ, ONCE, Dosing Weight 136.364, kg, Priority: STAT, Start date: 04/21/12 0:11:00, Stop date: 04/21/12 0:11:00 IM No Longer Active Teja 04/21/2012 [facility] [place] 10/325 oral tablet 1 tab, PO, Q4H, PRN, 24 tab, for pain, Substitution Allowed, Maintenance PO Active Siddiqui 04/20/2012 [facility] Versed 4 mg, 4 mL, Route: IVP, Drug form: SOLN, ONCE, Dosing Weight 136.364, kg, Priority: STAT, Start date: 04/20/12 1:21:00, Stop date: 04/20/12 1:21:00 IVP No Longer Active Siddiqui 04/20/2012 [facility] Dilaudid 1 mg, 1 mL, Route: IV, Drug form: INJ, ONCE, Dosing Weight 136.364, kg, Start date: 04/20/12 1:21:00, Stop date: 04/20/12 1:21:00 IV No Longer Active Siddiqui 04/20/2012 [facility] Zofran 4 mg, 2 mL, Route: IVP, Drug form: INJ, ONCE, Dosing Weight 136.364, kg, Priority: STAT, Start date: 04/20/12 1:01:00, Stop date: 04/20/12 1:01:00 IVP No Longer Active Siddiqui 04/20/2012 [facility] morphine Sulfate 6 mg, 0.6 mL, Route: IVP, Drug form: INJ, ONCE, Dosing Weight 136.364, kg, Start date: 04/20/12 1:01:00, Stop date: 04/20/12 1:01:00 IVP No Longer Active Siddiqui 04/20/2012 [facility] Allergies, Adverse Reactions, Alerts Substance Category Reaction Severity Reaction type Status Date Reported Comments Source No Known Medication Allergies Assertion Drug allergy [facility] HYDROcodone Assertion Drug allergy Active [facility] Immunizations Immunization Date Given Site Status Last Updated Comments Source pneumococcal 23-valent vaccine 03/13/2017 Not Given [facility] Results Order Name Results Value Reference Range Date Interpretation Comments Source HEMATOLOGY D-Dimer <0.27 09/29/2018 [facility] CARDIAC ENZYMES BNP 11 <=100 pg/mL 09/29/2018 [facility] CARDIAC ENZYMES Troponin-I <0.02 0.00 - 0.40 09/29/2018 [facility] CHEM PANEL eGFR 78 09/29/2018 Result Comment: The eGFR is calculated [...] should be multiplied by the estimated BMI. [facility] CHEM PANEL Glucose Lvl 93 70 - 99 09/29/2018 [facility] CHEM PANEL CO2 25 24 - 32 09/29/2018 [facility] CHEM PANEL Chloride Lvl 110 95 - 109 09/29/2018 [facility] CHEM PANEL Potassium Lvl 3.9 3.5 - 5.1 09/29/2018 [facility] CHEM PANEL Sodium Lvl 141 135 - 145 09/29/2018 [facility] CHEM PANEL Creatinine Lvl 0.92 0.50 - 1.40 09/29/2018 [facility] CHEM PANEL BUN 13 7 - 22 09/29/2018 [facility] CHEM PANEL Calcium Lvl 8.7 8.5 - 10.5 09/29/2018 [facility] CHEM PANEL AGAP 9.9 10.0 - 20.0 09/29/2018 [facility] HEMATOLOGY Eosinophils # 0.3 0.0 - 0.5 09/29/2018 [facility] HEMATOLOGY Lymphocytes # 1.8 1.0 - 5.5 09/29/2018 [facility] HEMATOLOGY Basophils # 0.1 0.0 - 0.2 09/29/2018 [facility] HEMATOLOGY Monocytes # 0.5 0.0 - 0.8 09/29/2018 [facility] HEMATOLOGY Segs 77.8 45.0 - 75.0 09/29/2018 [facility] Basophils 0.6 0.0 - 1.0 09/29/2018 [facility] Lymphocytes 14.9 20.0 - 40.0 09/29/2018 [facility] Monocytes 3.9 2.0 - 12.0 09/29/2018 [facility] Neutrophils # 9.3 1.5 - 8.1 09/29/2018 [facility] Eosinophils 2.8 0.0 - 4.0 09/29/2018 [facility] MPV 8.0 7.4 - 10.4 09/29/2018 [facility] MCHC 32.1 32.0 - 36.0 09/29/2018 [facility] RDW 16.5 11.5 - 14.5 09/29/2018 [facility] Platelet 298 133 - 450 09/29/2018 [facility] Hgb 12.2 12.0 - 16.0 09/29/2018 [facility] Hct 38.0 36.0 - 48.0 09/29/2018 [facility] MCV 79.3 80.0 - 98.0 09/29/2018 [facility] MCH 25.4 27.0 - 31.0 09/29/2018 [facility] RBC 4.79 4.20 - 5.40 09/29/2018 [facility] WBC 12.0 3.7 - 10.4 09/29/2018 [facility] CARDIAC ENZYMES BNP 41 <=100 pg/mL 08/01/2018 [facility] ELECTROLYTES AGAP 14.4 10.0 - 20.0 08/01/2018 [facility] ELECTROLYTES eGFR 73 08/01/2018 Result Comment: The eGFR is calculated [...] should be multiplied by the estimated BMI. [facility] ELECTROLYTES Sodium Lvl 143 135 - 145 08/01/2018 [facility] ELECTROLYTES Creatinine Lvl 0.96 0.50 - 1.40 08/01/2018 [facility] ELECTROLYTES CO2 29 24 - 32 08/01/2018 [facility] ELECTROLYTES Potassium Lvl 4.4 3.5 - 5.1 08/01/2018 [facility] ELECTROLYTES Calcium Lvl 8.6 8.5 - 10.5 08/01/2018 [facility] ELECTROLYTES Chloride Lvl 104 95 - 109 08/01/2018 [facility] ELECTROLYTES Glucose Lvl 152 70 - 99 08/01/2018 [facility] ELECTROLYTES BUN 18 7 - 22 08/01/2018 [facility] LIPIDS LDL (Calculated) 77 <=99 mg/dL 07/30/2018 [facility] CHD Risk 3.58 3.90 - 5.80 07/30/2018 [facility] HDL 36 >=61 mg/dL 07/30/2018 [facility] Trig 81 <=149 mg/dL 07/30/2018 [facility] LIPIDS Chol 129 <=199 mg/dL 07/30/2018 [facility] LIPIDS VLDL 16 07/30/2018 [facility] CHEM PANEL Phosphorus 3.1 2.5 - 4.5 07/29/2018 [facility] CHEM PANEL eGFR 65 07/29/2018 Result Comment: The eGFR is calculated [...] should be multiplied by the estimated BMI. [facility] CHEM PANEL Glucose Lvl 128 70 - 99 07/29/2018 [facility] CHEM PANEL Creatinine Lvl 1.06 0.50 - 1.40 07/29/2018 [facility] CHEM PANEL BUN 11 7 - 22 07/29/2018 [facility] CHEM PANEL Total Protein 7.8 6.4 - 8.4 07/29/2018 [facility] CHEM PANEL Albumin Lvl 3.4 3.5 - 5.0 07/29/2018 [facility] CHEM PANEL Potassium Lvl 4.1 3.5 - 5.1 07/29/2018 [facility] CHEM PANEL Calcium Lvl 8.8 8.5 - 10.5 07/29/2018 [facility] CHEM PANEL CO2 22 24 - 32 07/29/2018 [facility] CHEM PANEL Chloride Lvl 109 95 - 109 07/29/2018 [facility] CHEM PANEL Sodium Lvl 139 135 - 145 07/29/2018 [facility] CHEM PANEL ALT 20 0 - 65 07/29/2018 [facility] CHEM PANEL AST 16 0 - 37 07/29/2018 [facility] CHEM PANEL Bili Total 0.1 0.2 - 1.3 07/29/2018 [facility] CHEM PANEL Alk Phos 100 39 - 136 07/29/2018 [facility] CHEM PANEL B/C Ratio 10 6 - 25 07/29/2018 [facility] CHEM PANEL AGAP 12.1 10.0 - 20.0 07/29/2018 [facility] CHEM PANEL A/G Ratio 0.8 0.7 - 1.6 07/29/2018 [facility] CHEM PANEL Globulin 4.4 2.7 - 4.2 07/29/2018 [facility] CHEM PANEL Magnesium Lvl 2.1 1.8 - 2.4 07/29/2018 [facility] HEMATOLOGY RDW 16.3 11.5 - 14.5 07/29/2018 [facility] HEMATOLOGY Platelet 323 133 - 450 07/29/2018 [facility] HEMATOLOGY MPV 8.8 7.4 - 10.4 07/29/2018 [facility] HEMATOLOGY MCHC 32.9 32.0 - 36.0 07/29/2018 [facility] HEMATOLOGY RBC 4.78 4.20 - 5.40 07/29/2018 [facility] HEMATOLOGY WBC 11.4 3.7 - 10.4 07/29/2018 [facility] HEMATOLOGY MCH 25.5 27.0 - 31.0 07/29/2018 [facility] MCV 77.6 80.0 - 98.0 07/29/2018 [facility] Hct 37.1 36.0 - 48.0 07/29/2018 [facility] Hgb 12.2 12.0 - 16.0 07/29/2018 [facility] Neutrophils # 10.2 1.5 - 8.1 07/29/2018 [facility] Basophils 0.1 0.0 - 1.0 07/29/2018 [facility] Microcyte 1+ *ABN* (07/29/18 2:00 AM) None Seen 07/29/2018 [facility] Monocytes # 0.5 0.0 - 0.8 07/29/2018 [facility] Lymphocytes # 0.7 1.0 - 5.5 07/29/2018 [facility] Segs 89.4 45.0 - 75.0 07/29/2018 [facility] Lymphocytes 6.0 20.0 - 40.0 07/29/2018 [facility] Monocytes 4.5 2.0 - 12.0 07/29/2018 [facility] VIRAL - SEROLOGY Influ B Negative (07/28/18 12:46 PM) Negative 07/28/2018 [facility] VIRAL - SEROLOGY Influ A Negative (07/28/18 12:46 PM) Negative 07/28/2018 [facility] CARDIAC ENZYMES Troponin-I <0.02 0.00 - 0.40 07/28/2018 [facility] CARDIAC ENZYMES Troponin-I <0.02 0.00 - 0.40 07/28/2018 [facility] HEMATOLOGY D-Dimer 0.28 07/28/2018 [facility] CARDIAC ENZYMES Total CK 43 12 - 191 07/28/2018 [facility] CARDIAC ENZYMES BNP 9 <=100 pg/mL 07/28/2018 [facility] CARDIAC ENZYMES Troponin-I <0.02 0.00 - 0.40 07/28/2018 [facility] CHEM PANEL eGFR 63 07/28/2018 Result Comment: The eGFR is calculated [...] should be multiplied by the estimated BMI. [facility] CHEM PANEL Alk Phos 99 39 - 136 07/28/2018 [facility] CHEM PANEL Bili Total 0.2 0.2 - 1.3 07/28/2018 [facility] CHEM PANEL ALT 18 0 - 65 07/28/2018 [facility] CHEM PANEL AST 11 0 - 37 07/28/2018 [facility] CHEM PANEL Albumin Lvl 3.3 3.5 - 5.0 07/28/2018 [facility] CHEM PANEL Calcium Lvl 8.2 8.5 - 10.5 07/28/2018 [facility] CHEM PANEL Total Protein 7.5 6.4 - 8.4 07/28/2018 [facility] CHEM PANEL Chloride Lvl 110 95 - 109 07/28/2018 [facility] CHEM PANEL CO2 23 24 - 32 07/28/2018 [facility] CHEM PANEL Sodium Lvl 139 135 - 145 07/28/2018 [facility] CHEM PANEL Potassium Lvl 3.5 3.5 - 5.1 07/28/2018 [facility] CHEM PANEL BUN 13 7 - 22 07/28/2018 [facility] CHEM PANEL Creatinine Lvl 1.10 0.50 - 1.40 07/28/2018 [facility] CHEM PANEL Glucose Lvl 118 70 - 99 07/28/2018 [facility] CHEM PANEL AGAP 9.5 10.0 - 20.0 07/28/2018 [facility] CHEM PANEL Globulin 4.2 2.7 - 4.2 07/28/2018 [facility] CHEM PANEL A/G Ratio 0.8 0.7 - 1.6 07/28/2018 [facility] CHEM PANEL B/C Ratio 12 6 - 25 07/28/2018 [facility] ENDOCRINOLOGY S Preg Negative *NA* (07/28/18 12:32 AM) Negative 07/28/2018 [facility] HEMATOLOGY Monocytes # 0.5 0.0 - 0.8 07/28/2018 [facility] HEMATOLOGY Eosinophils # 0.1 0.0 - 0.5 07/28/2018 [facility] HEMATOLOGY Basophils # 0.1 0.0 - 0.2 07/28/2018 [facility] HEMATOLOGY Microcyte 1+ *ABN* (07/28/18 12:32 AM) None Seen 07/28/2018 [facility] Segs 78.0 45.0 - 75.0 07/28/2018 [facility] Lymphocytes 16.1 20.0 - 40.0 07/28/2018 [facility] HEMATOLOGY Monocytes 4.4 2.0 - 12.0 07/28/2018 [facility] HEMATOLOGY Eosinophils 1.0 0.0 - 4.0 07/28/2018 [facility] HEMATOLOGY Basophils 0.5 0.0 - 1.0 07/28/2018 [facility] Neutrophils # 8.6 1.5 - 8.1 07/28/2018 [facility] Lymphocytes # 1.8 1.0 - 5.5 07/28/2018 [facility] RBC 4.89 4.20 - 5.40 07/28/2018 [facility] Hgb 12.1 12.0 - 16.0 07/28/2018 [facility] MCV 77.9 80.0 - 98.0 07/28/2018 [facility] MCH 24.8 27.0 - 31.0 07/28/2018 [facility] WBC 11.0 3.7 - 10.4 07/28/2018 [facility] Platelet 294 133 - 450 07/28/2018 [facility] MPV 8.4 7.4 - 10.4 07/28/2018 [facility] Hct 38.1 36.0 - 48.0 07/28/2018 [facility] MCHC 31.8 32.0 - 36.0 07/28/2018 [facility] RDW 16.4 11.5 - 14.5 07/28/2018 [facility] INR 0.96 0.85 - 1.17 07/28/2018 [facility] HEMATOLOGY PT 12.6 12.0 - 14.7 07/28/2018 [facility] PTT 32.0 22.9 - 35.8 07/28/2018 [facility] CARDIAC ENZYMES Troponin-I <0.02 0.00 - 0.40 03/17/2018 [facility] CHEM PANEL Lipase Lvl 91 73 - 393 03/17/2018 [facility] CHEM PANEL eGFR 93 03/17/2018 Result Comment: The eGFR is calculated [...] should be multiplied by the estimated BMI. [facility] CHEM PANEL Alk Phos 98 39 - 136 03/17/2018 [facility] CHEM PANEL AST 15 0 - 37 03/17/2018 [facility] CHEM PANEL ALT 17 0 - 65 03/17/2018 [facility] CHEM PANEL Albumin Lvl 3.4 3.5 - 5.0 03/17/2018 [facility] CHEM PANEL BUN 13 7 - 22 03/17/2018 [facility] CHEM PANEL Glucose Lvl 84 70 - 99 03/17/2018 [facility] CHEM PANEL Chloride Lvl 106 95 - 109 03/17/2018 [facility] CHEM PANEL Potassium Lvl 3.9 3.5 - 5.1 03/17/2018 [facility] CHEM PANEL Sodium Lvl 141 135 - 145 03/17/2018 [facility] CHEM PANEL Creatinine Lvl 0.79 0.50 - 1.40 03/17/2018 [facility] CHEM PANEL Total Protein 7.8 6.4 - 8.4 03/17/2018 [facility] CHEM PANEL Calcium Lvl 8.8 8.5 - 10.5 03/17/2018 [facility] CHEM PANEL CO2 25 24 - 32 03/17/2018 [facility] CHEM PANEL Bili Total 0.3 0.2 - 1.3 03/17/2018 [facility] CHEM PANEL A/G Ratio 0.8 0.7 - 1.6 03/17/2018 [facility] CHEM PANEL Globulin 4.4 2.7 - 4.2 03/17/2018 [facility] CHEM PANEL B/C Ratio 16 6 - 25 03/17/2018 [facility] CHEM PANEL AGAP 13.9 10.0 - 20.0 03/17/2018 [facility] HEMATOLOGY Basophils # 0.1 0.0 - 0.2 03/17/2018 [facility] HEMATOLOGY Eosinophils # 0.2 0.0 - 0.5 03/17/2018 [facility] HEMATOLOGY Microcyte 1+ *ABN* (03/16/18 10:56 PM) None Seen 03/17/2018 [facility] HEMATOLOGY Lymphocytes # 3.6 1.0 - 5.5 03/17/2018 [facility] HEMATOLOGY Neutrophils # 8.9 1.5 - 8.1 03/17/2018 [facility] HEMATOLOGY Monocytes # 0.6 0.0 - 0.8 03/17/2018 [facility] HEMATOLOGY Basophils 0.7 0.0 - 1.0 03/17/2018 [facility] HEMATOLOGY Eosinophils 1.4 0.0 - 4.0 03/17/2018 [facility] Lymphocytes 27.3 20.0 - 40.0 03/17/2018 [facility] Monocytes 4.2 2.0 - 12.0 03/17/2018 [facility] Segs 66.4 45.0 - 75.0 03/17/2018 [facility] RDW 16.6 11.5 - 14.5 03/17/2018 [facility] MCHC 33.1 32.0 - 36.0 03/17/2018 [facility] MCH 25.6 27.0 - 31.0 03/17/2018 [facility] MCV 77.4 80.0 - 98.0 03/17/2018 [facility] HEMATOLOGY Hct 39.2 36.0 - 48.0 03/17/2018 [facility] Hgb 13.0 12.0 - 16.0 03/17/2018 [facility] WBC 13.4 3.7 - 10.4 03/17/2018 [facility] HEMATOLOGY Platelet 292 133 - 450 03/17/2018 [facility] HEMATOLOGY RBC 5.07 4.20 - 5.40 03/17/2018 [facility] MPV 8.8 7.4 - 10.4 03/17/2018 [facility] URINE AND STOOL UA WBC 1 0 - 5 03/17/2018 [facility] URINE AND STOOL UA Leuk Est Trace *ABN* (03/16/18 10:56 PM) Negative 03/17/2018 [facility] URINE AND STOOL UA Sq Epi Occasional /LPF Few /LPF 03/17/2018 [facility] URINE AND STOOL UA Nitrite Negative (03/16/18 10:56 PM) Negative 03/17/2018 [facility] URINE AND STOOL UA Blood Negative (03/16/18 [...] Turbidity Clear (03/16/18 10:56 PM) Clear 03/17/2018 [facility] URINE AND STOOL UA Color Yellow *NA* (03/16/18 10:56 PM) Yellow 03/17/2018 [facility] URINE AND STOOL UA Bacteria Few /HPF None Seen /HPF 03/17/2018 [facility] URINE AND STOOL UA RBC 2 0 - 2 03/17/2018 [facility] URINE AND STOOL UA Urobilinogen <=1.0 mg/dL 0.1 - 1.0 03/17/2018 [facility] URINE CHEM U Preg Negative (03/16/18 10:56 PM) Negative 03/17/2018 [facility] URINE AND STOOL UA Urobilinogen <=1.0 mg/dL 0.1 - 1.0 03/03/2018 [facility] URINE AND STOOL UA Nitrite Negative (03/03/18 9:40 AM) Negative 03/03/2018 [facility] URINE AND STOOL UA Blood Negative (03/03/18 9:40 AM) Negative 03/03/2018 [facility] URINE AND STOOL UA Ketones Negative mg/dL Negative mg/dL 03/03/2018 [facility] URINE AND STOOL UA Bili Negative *NA* (03/03/18 9:40 AM) Negative 03/03/2018 [facility] URINE AND STOOL UA Glucose Negative mg/dL Negative mg/dL 03/03/2018 [facility] URINE AND STOOL UA Protein Negative mg/dL Negative mg/dL 03/03/2018 [facility] URINE AND STOOL UA Mucus Few /LPF None Seen /LPF 03/03/2018 [facility] URINE AND STOOL UA WBC 5 0 - 5 03/03/2018 [facility] URINE AND STOOL UA RBC 2 0 - 2 03/03/2018 [facility] URINE AND STOOL UA Sq Epi Occasional /LPF Few /LPF 03/03/2018 [facility] URINE AND STOOL UA Leuk Est Moderate *ABN* (03/03/18 9:40 AM) Negative 03/03/2018 [facility] URINE AND STOOL UA Spec Grav 1.014 <=1.030 03/03/2018 [facility] URINE AND STOOL UA pH 5.0 5.0 - 8.0 03/03/2018 [facility] URINE AND STOOL UA Turbidity Clear (03/03/18 9:40 AM) Clear 03/03/2018 [facility] URINE AND STOOL UA Color Yellow *NA* (03/03/18 9:40 AM) Yellow 03/03/2018 [facility] Culture: Urine <10,000 CFU/mL Skin Martina 03/03/2018 [facility] ELECTROLYTES AGAP 15.2 10.0 - 20.0 03/03/2018 [facility] ELECTROLYTES eGFR 88 03/03/2018 Result Comment: The eGFR is calculated [...] should be multiplied by the estimated BMI. [facility] ELECTROLYTES Sodium Lvl 144 135 - 145 03/03/2018 [facility] ELECTROLYTES Creatinine Lvl 0.83 0.50 - 1.40 03/03/2018 [facility] ELECTROLYTES Potassium Lvl 4.2 3.5 - 5.1 03/03/2018 [facility] ELECTROLYTES CO2 22 24 - 32 03/03/2018 [facility] ELECTROLYTES Chloride Lvl 111 95 - 109 03/03/2018 [facility] ELECTROLYTES Calcium Lvl 8.4 8.5 - 10.5 03/03/2018 [facility] ELECTROLYTES Glucose Lvl 97 70 - 99 03/03/2018 [facility] ELECTROLYTES BUN 9 7 - 22 03/03/2018 [facility] ENDOCRINOLOGY S Preg Negative *NA* (03/03/18 9:16 AM) Negative 03/03/2018 [facility] HEMATOLOGY Eosinophils # 0.2 0.0 - 0.5 03/03/2018 [facility] Basophils # 0.1 0.0 - 0.2 03/03/2018 [facility] Microcyte 1+ *ABN* (03/03/18 9:16 AM) None Seen 03/03/2018 [facility] HEMATOLOGY Lymphocytes 19.5 20.0 - 40.0 03/03/2018 [facility] Segs 72.5 45.0 - 75.0 03/03/2018 [facility] Monocytes 4.9 2.0 - 12.0 03/03/2018 [facility] Basophils 1.1 0.0 - 1.0 03/03/2018 [facility] Eosinophils 2.0 0.0 - 4.0 03/03/2018 [facility] Lymphocytes # 1.9 1.0 - 5.5 03/03/2018 [facility] Neutrophils # 7.2 1.5 - 8.1 03/03/2018 [facility] Monocytes # 0.5 0.0 - 0.8 03/03/2018 [facility] D-Dimer 0.33 03/03/2018 [facility] MPV 8.0 7.4 - 10.4 03/03/2018 [facility] RDW 16.6 11.5 - 14.5 03/03/2018 [facility] Platelet 309 133 - 450 03/03/2018 [facility] MCHC 33.4 32.0 - 36.0 03/03/2018 [facility] MCH 25.6 27.0 - 31.0 03/03/2018 [facility] Hct 35.8 36.0 - 48.0 03/03/2018 [facility] RBC 4.65 4.20 - 5.40 03/03/2018 [facility] Hgb 11.9 12.0 - 16.0 03/03/2018 [facility] WBC 10.0 3.7 - 10.4 03/03/2018 [facility] MCV 76.9 80.0 - 98.0 03/03/2018 [facility] RAPID Grp A Strep Scr Negative (03/03/18 9:16 AM) Negative 03/03/2018 [facility] VIRAL - SEROLOGY Influ B Negative (03/03/18 9:16 AM) Negative 03/03/2018 [facility] VIRAL - SEROLOGY Influ A Negative (03/03/18 9:16 AM) Negative 03/03/2018 [facility] HEMATOLOGY D-Dimer 0.35 02/11/2018 [facility] CARDIAC ENZYMES Total CK 38 12 - 191 02/10/2018 [facility] CARDIAC ENZYMES BNP 19 <=100 pg/mL 02/10/2018 [facility] CARDIAC ENZYMES Troponin-I <0.02 0.00 - 0.40 02/10/2018 [facility] CHEM PANEL eGFR 66 02/10/2018 Result Comment: The eGFR is calculated [...] should be multiplied by the estimated BMI. [facility] CHEM PANEL Potassium Lvl 3.5 3.5 - 5.1 02/10/2018 [facility] CHEM PANEL Chloride Lvl 108 95 - 109 02/10/2018 [facility] CHEM PANEL Calcium Lvl 9.7 8.5 - 10.5 02/10/2018 [facility] CHEM PANEL CO2 31 24 - 32 02/10/2018 [facility] CHEM PANEL Sodium Lvl 143 135 - 145 02/10/2018 [facility] CHEM PANEL Creatinine Lvl 1.05 0.50 - 1.40 02/10/2018 [facility] CHEM PANEL ALT 18 0 - 65 02/10/2018 [facility] CHEM PANEL Albumin Lvl 3.3 3.5 - 5.0 02/10/2018 [facility] CHEM PANEL Alk Phos 97 39 - 136 02/10/2018 [facility] CHEM PANEL AST 12 0 - 37 02/10/2018 [facility] CHEM PANEL Total Protein 7.5 6.4 - 8.4 02/10/2018 [facility] CHEM PANEL Bili Total <0.1 0.2 - 1.3 02/10/2018 [facility] CHEM PANEL BUN 13 7 - 22 02/10/2018 [facility] CHEM PANEL Glucose Lvl 93 70 - 99 02/10/2018 [facility] CHEM PANEL Globulin 4.2 2.7 - 4.2 02/10/2018 [facility] CHEM PANEL A/G Ratio 0.8 0.7 - 1.6 02/10/2018 [facility] CHEM PANEL B/C Ratio 12 6 - 25 02/10/2018 [facility] CHEM PANEL AGAP 7.5 10.0 - 20.0 02/10/2018 [facility] ENDOCRINOLOGY S Preg Negative *NA* (02/10/18 5:18 PM) Negative 02/10/2018 [facility] HEMATOLOGY Neutrophils # 7.1 1.5 - 8.1 02/10/2018 [facility] Lymphocytes # 3.1 1.0 - 5.5 02/10/2018 [facility] Monocytes # 0.5 0.0 - 0.8 02/10/2018 [facility] HEMATOLOGY Eosinophils # 0.2 0.0 - 0.5 02/10/2018 [facility] Basophils # 0.1 0.0 - 0.2 02/10/2018 [facility] Microcyte 1+ *ABN* (02/10/18 5:18 PM) None Seen 02/10/2018 [facility] Segs 64.6 45.0 - 75.0 02/10/2018 [facility] Lymphocytes 28.1 20.0 - 40.0 02/10/2018 [facility] Basophils 1.2 0.0 - 1.0 02/10/2018 [facility] Monocytes 4.2 2.0 - 12.0 02/10/2018 [facility] Eosinophils 1.9 0.0 - 4.0 02/10/2018 [facility] WBC 11.0 3.7 - 10.4 02/10/2018 [facility] Hgb 12.0 12.0 - 16.0 02/10/2018 [facility] RBC 4.77 4.20 - 5.40 02/10/2018 [facility] RDW 16.0 11.5 - 14.5 02/10/2018 [facility] MCH 25.3 27.0 - 31.0 02/10/2018 [facility] HEMATOLOGY MCHC 33.3 32.0 - 36.0 02/10/2018 [facility] HEMATOLOGY Hct 36.2 36.0 - 48.0 02/10/2018 [facility] HEMATOLOGY MCV 76.0 80.0 - 98.0 02/10/2018 [facility] HEMATOLOGY Platelet 292 133 - 450 02/10/2018 [facility] HEMATOLOGY MPV 8.1 7.4 - 10.4 02/10/2018 [facility] URINE AND STOOL UA Spec Grav 1.021 <=1.030 09/29/2017 [facility] URINE AND STOOL UA pH 5.0 5.0 - 8.0 09/29/2017 [facility] URINE AND STOOL UA Glucose Negative mg/dL Negative mg/dL 09/29/2017 [facility] URINE AND STOOL UA Protein Negative mg/dL Negative mg/dL 09/29/2017 [facility] URINE AND STOOL UA Bili Negative *NA* (09/29/17 4:49 PM) Negative 09/29/2017 [facility] URINE AND STOOL UA Ketones Negative mg/dL Negative mg/dL 09/29/2017 [facility] URINE AND STOOL UA Blood Negative (09/29/17 4:49 PM) Negative 09/29/2017 [facility] URINE AND STOOL UA Leuk Est Negative (09/29/17 4:49 PM) Negative 09/29/2017 [facility] URINE AND STOOL UA Nitrite Negative (09/29/17 4:49 PM) Negative 09/29/2017 [facility] URINE AND STOOL UA WBC 2 0 - 5 09/29/2017 [facility] URINE AND STOOL UA Sq Epi Few /LPF Few /LPF 09/29/2017 [facility] URINE AND STOOL UA RBC 5 0 - 2 09/29/2017 [facility] URINE AND STOOL UA Mucus Few /LPF None Seen /LPF 09/29/2017 [facility] URINE AND STOOL UA Urobilinogen <=1.0 mg/dL 0.1 - 1.0 09/29/2017 [facility] URINE AND STOOL UA Color Yellow *NA* (09/29/17 4:49 PM) Yellow 09/29/2017 [facility] URINE AND STOOL UA Turbidity Clear (09/29/17 4:49 PM) Clear 09/29/2017 [facility] URINE CHEM U Preg Negative (09/29/17 4:49 PM) Negative 09/29/2017 [facility] CHEM PANEL Lactic Acid Lvl 1.0 0.5 - 2.2 09/29/2017 [facility] ELECTROLYTES AGAP 9.9 10.0 - 20.0 09/29/2017 [facility] ELECTROLYTES Globulin 4.3 2.7 - 4.2 09/29/2017 [facility] ELECTROLYTES B/C Ratio 13 6 - 25 09/29/2017 [facility] ELECTROLYTES A/G Ratio 0.7 0.7 - 1.6 09/29/2017 [facility] ELECTROLYTES eGFR 98 09/29/2017 Result Comment: The eGFR is calculated [...] should be multiplied by the estimated BMI. [facility] ELECTROLYTES Creatinine Lvl 0.76 0.50 - 1.40 09/29/2017 [facility] ELECTROLYTES Potassium Lvl 3.9 3.5 - 5.1 09/29/2017 [facility] ELECTROLYTES Sodium Lvl 142 135 - 145 09/29/2017 [facility] ELECTROLYTES CO2 25 24 - 32 09/29/2017 [facility] ELECTROLYTES Calcium Lvl 8.6 8.5 - 10.5 09/29/2017 [facility] ELECTROLYTES Chloride Lvl 111 95 - 109 09/29/2017 [facility] ELECTROLYTES Total Protein 7.5 6.4 - 8.4 09/29/2017 [facility] ELECTROLYTES AST 20 0 - 37 09/29/2017 [facility] ELECTROLYTES ALT 22 0 - 65 09/29/2017 [facility] ELECTROLYTES Albumin Lvl 3.2 3.5 - 5.0 09/29/2017 [facility] ELECTROLYTES Alk Phos 101 39 - 136 09/29/2017 [facility] ELECTROLYTES Bili Total 0.2 0.2 - 1.3 09/29/2017 [facility] ELECTROLYTES Glucose Lvl 82 70 - 99 09/29/2017 [facility] ELECTROLYTES BUN 10 7 - 22 09/29/2017 [facility] HEMATOLOGY Microcyte 1+ *ABN* (09/29/17 2:44 PM) None Seen 09/29/2017 [facility] HEMATOLOGY Monocytes 4.3 2.0 - 12.0 09/29/2017 [facility] HEMATOLOGY Eosinophils 2.1 0.0 - 4.0 09/29/2017 [facility] HEMATOLOGY Segs 65.9 45.0 - 75.0 09/29/2017 [facility] HEMATOLOGY Lymphocytes # 3.5 1.0 - 5.5 09/29/2017 [facility] HEMATOLOGY Monocytes # 0.6 0.0 - 0.8 09/29/2017 [facility] HEMATOLOGY Eosinophils # 0.3 0.0 - 0.5 09/29/2017 [facility] HEMATOLOGY Lymphocytes 26.8 20.0 - 40.0 09/29/2017 [facility] HEMATOLOGY Basophils 0.9 0.0 - 1.0 09/29/2017 [facility] HEMATOLOGY Segs-Bands # 8.5 1.5 - 8.1 09/29/2017 [facility] Basophils # 0.1 0.0 - 0.2 09/29/2017 [facility] HEMATOLOGY Hct 37.7 36.0 - 48.0 09/29/2017 [facility] MCV 76.7 80.0 - 98.0 09/29/2017 [facility] MCH 25.4 27.0 - 31.0 09/29/2017 [facility] MCHC 33.1 32.0 - 36.0 09/29/2017 [facility] RDW 16.1 11.5 - 14.5 09/29/2017 [facility] Hgb 12.5 12.0 - 16.0 09/29/2017 [facility] Platelet 326 133 - 450 09/29/2017 [facility] MPV 8.3 7.4 - 10.4 09/29/2017 [facility] RBC 4.91 4.20 - 5.40 09/29/2017 [facility] WBC 12.9 3.7 - 10.4 09/29/2017 [facility] URINE AND STOOL UA Color Yellow *NA* (07/21/17 10:58 PM) Yellow 07/22/2017 [facility] URINE AND STOOL UA Turbidity Marked *ABN* (07/21/17 10:58 PM) Clear 07/22/2017 [facility] URINE AND STOOL UA Spec Grav 1.019 <=1.030 07/22/2017 [facility] URINE AND STOOL UA pH 7.0 5.0 - 8.0 07/22/2017 [facility] URINE AND STOOL UA Glucose Negative mg/dL Negative mg/dL 07/22/2017 [facility] URINE AND STOOL UA Protein Negative mg/dL Negative mg/dL 07/22/2017 [facility] URINE AND STOOL UA Ketones Negative mg/dL Negative mg/dL 07/22/2017 [facility] URINE AND STOOL UA Blood Negative (07/21/17 10:58 PM) Negative 07/22/2017 [facility] URINE AND STOOL UA Bili Negative *NA* (07/21/17 10:58 PM) Negative 07/22/2017 [facility] URINE AND STOOL UA Leuk Est Trace *ABN* (07/21/17 10:58 PM) Negative 07/22/2017 [facility] URINE AND STOOL UA Nitrite Negative (07/21/17 10:58 PM) Negative 07/22/2017 [facility] URINE AND STOOL UA WBC 6 0 - 5 07/22/2017 [facility] URINE AND STOOL UA Sq Epi Many /LPF Few /LPF 07/22/2017 [facility] URINE AND STOOL UA Amorph Anita Few /HPF None Seen /HPF 07/22/2017 [facility] URINE AND STOOL UA RBC 2 0 - 2 07/22/2017 [facility] URINE AND STOOL UA Urobilinogen <=1.0 mg/dL 0.1 - 1.0 07/22/2017 [facility] URINE CHEM U Preg Negative (07/21/17 10:58 PM) Negative 07/22/2017 [facility] TOXICOLOGY Vanco Tr TND 0800 03/14/2017 [facility] TOXICOLOGY Vanco Tr 17.6 03/14/2017 [facility] HEMATOLOGY MCH 26.4 27.0 - 31.0 03/14/2017 [facility] HEMATOLOGY MCV 78.2 80.0 - 98.0 03/14/2017 [facility] HEMATOLOGY Hct 32.8 36.0 - 48.0 03/14/2017 [facility] HEMATOLOGY Hgb 11.1 12.0 - 16.0 03/14/2017 [facility] HEMATOLOGY MCHC 33.7 32.0 - 36.0 03/14/2017 [facility] HEMATOLOGY RBC 4.20 4.20 - 5.40 03/14/2017 [facility] HEMATOLOGY WBC 10.7 3.7 - 10.4 03/14/2017 [facility] HEMATOLOGY RDW 15.5 11.5 - 14.5 03/14/2017 [facility] HEMATOLOGY MPV 8.3 7.4 - 10.4 03/14/2017 [facility] HEMATOLOGY Platelet 262 133 - 450 03/14/2017 [facility] TOXICOLOGY Vanco Tr 22.1 03/14/2017 [facility] TOXICOLOGY Vanco Tr TND 06:00 03/14/2017 [facility] CHEM PANEL eGFR 88 03/13/2017 Result Comment: The eGFR is calculated [...] should be multiplied by the estimated BMI. [facility] CHEM PANEL Calcium Lvl 8.0 8.5 - 10.5 03/13/2017 [facility] CHEM PANEL Glucose Lvl 139 70 - 99 03/13/2017 [facility] CHEM PANEL CO2 25 24 - 32 03/13/2017 [facility] CHEM PANEL AGAP 14.3 10.0 - 20.0 03/13/2017 [facility] CHEM PANEL Sodium Lvl 140 135 - 145 03/13/2017 [facility] CHEM PANEL Potassium Lvl 3.3 3.5 - 5.1 03/13/2017 [facility] CHEM PANEL Chloride Lvl 104 95 - 109 03/13/2017 [facility] CHEM PANEL BUN 11 7 - 22 03/13/2017 [facility] CHEM PANEL Creatinine Lvl 0.83 0.50 - 1.40 03/13/2017 [facility] HEMATOLOGY RBC 4.39 4.20 - 5.40 03/13/2017 [facility] HEMATOLOGY WBC 13.5 3.7 - 10.4 03/13/2017 [facility] HEMATOLOGY MPV 8.1 7.4 - 10.4 03/13/2017 [facility] HEMATOLOGY RDW 15.6 11.5 - 14.5 03/13/2017 [facility] Platelet 285 133 - 450 03/13/2017 [facility] MCHC 33.7 32.0 - 36.0 03/13/2017 [facility] MCH 26.0 27.0 - 31.0 03/13/2017 [facility] Hct 33.8 36.0 - 48.0 03/13/2017 [facility] MCV 77.1 80.0 - 98.0 03/13/2017 [facility] Hgb 11.4 12.0 - 16.0 03/13/2017 [facility] HEMATOLOGY Basophils 0.5 0.0 - 1.0 03/13/2017 [facility] HEMATOLOGY Lymphocytes # 3.7 1.0 - 5.5 03/13/2017 [facility] HEMATOLOGY Segs-Bands # 9.1 1.5 - 8.1 03/13/2017 [facility] Eosinophils # 0.2 0.0 - 0.5 03/13/2017 [facility] Monocytes # 0.5 0.0 - 0.8 03/13/2017 [facility] Microcyte 1+ *ABN* (03/13/17 4:59 AM) None Seen 03/13/2017 [facility] Basophils # 0.1 0.0 - 0.2 03/13/2017 [facility] Lymphocytes 27.6 20.0 - 40.0 03/13/2017 [facility] HEMATOLOGY Segs 66.9 45.0 - 75.0 03/13/2017 [facility] Eosinophils 1.3 0.0 - 4.0 03/13/2017 [facility] Monocytes 3.7 2.0 - 12.0 03/13/2017 [facility] RAPID Grp A Strep Scr Negative (03/12/17 5:50 PM) Negative 03/12/2017 [facility] VIRAL - SEROLOGY Influ B Negative (03/12/17 5:50 PM) Negative 03/12/2017 [facility] VIRAL - SEROLOGY Influ A Negative (03/12/17 5:50 PM) Negative 03/12/2017 [facility] URINE AND STOOL UA Color Ltyellow 03/12/2017 [facility] URINE AND STOOL UA Urobilinogen <=1.0 mg/dL 0.1 - 1.0 03/12/2017 [facility] URINE AND STOOL UA Bacteria Occasional /HPF None Seen /HPF 03/12/2017 [facility] URINE AND STOOL UA RBC 3 0 - 2 03/12/2017 [facility] URINE AND STOOL UA Nitrite Negative (03/12/17 4:14 PM) Negative 03/12/2017 [facility] URINE AND STOOL UA pH 5.0 5.0 - 8.0 03/12/2017 [facility] URINE AND STOOL UA Glucose Negative mg/dL Negative mg/dL 03/12/2017 [facility] URINE AND STOOL UA Protein Negative mg/dL Negative mg/dL 03/12/2017 [facility] URINE AND STOOL UA Ketones Negative mg/dL Negative mg/dL 03/12/2017 [facility] URINE AND STOOL UA WBC 3 0 - 5 03/12/2017 [facility] URINE AND STOOL UA Leuk Est Moderate *ABN* (03/12/17 4:14 PM) Negative 03/12/2017 [facility] URINE AND STOOL UA Sq Epi Few /LPF Few /LPF 03/12/2017 [facility] URINE AND STOOL UA Blood Moderate *ABN* (03/12/17 4:14 PM) Negative 03/12/2017 [facility] URINE AND STOOL UA Bili Negative *NA* (03/12/17 4:14 PM) Negative 03/12/2017 [facility] URINE AND STOOL UA Turbidity Slight *ABN* (03/12/17 4:14 PM) Clear 03/12/2017 [facility] URINE AND STOOL UA Spec Grav 1.016 <=1.030 03/12/2017 [facility] URINE CHEM U Preg Negative (03/12/17 4:14 PM) Negative 03/12/2017 [facility] CHEM PANEL eGFR 79 03/12/2017 Result Comment: The eGFR is calculated [...] should be multiplied by the estimated BMI. [facility] CHEM PANEL AGAP 11.9 10.0 - 20.0 03/12/2017 [facility] CHEM PANEL B/C Ratio 12 6 - 25 03/12/2017 [facility] CHEM PANEL Bili Total 0.4 0.2 - 1.3 03/12/2017 [facility] CHEM PANEL Alk Phos 109 39 - 136 03/12/2017 [facility] CHEM PANEL Sodium Lvl 141 135 - 145 03/12/2017 [facility] CHEM PANEL Creatinine Lvl 0.91 0.50 - 1.40 03/12/2017 [facility] CHEM PANEL Potassium Lvl 3.9 3.5 - 5.1 03/12/2017 [facility] CHEM PANEL Chloride Lvl 107 95 - 109 03/12/2017 [facility] CHEM PANEL Total Protein 7.5 6.4 - 8.4 03/12/2017 [facility] CHEM PANEL AST 15 0 - 37 03/12/2017 [facility] CHEM PANEL ALT 17 0 - 65 03/12/2017 [facility] CHEM PANEL Albumin Lvl 3.3 3.5 - 5.0 03/12/2017 [facility] CHEM PANEL Glucose Lvl 102 70 - 99 03/12/2017 [facility] CHEM PANEL BUN 11 7 - 22 03/12/2017 [facility] CHEM PANEL A/G Ratio 0.8 0.7 - 1.6 03/12/2017 [facility] CHEM PANEL Globulin 4.2 2.7 - 4.2 03/12/2017 [facility] CHEM PANEL CO2 26 24 - 32 03/12/2017 [facility] CHEM PANEL Calcium Lvl 8.7 8.5 - 10.5 03/12/2017 [facility] CHEM PANEL Lipase Lvl 91 73 - 393 03/12/2017 [facility] CHEM PANEL B/C Ratio 12 6 - 25 03/12/2017 [facility] CHEM PANEL AGAP 12.9 10.0 - 20.0 03/12/2017 [facility] CHEM PANEL A/G Ratio 0.8 0.7 - 1.6 03/12/2017 [facility] CHEM PANEL Globulin 4.4 2.7 - 4.2 03/12/2017 [facility] CHEM PANEL eGFR 76 03/12/2017 Result Comment: The eGFR is calculated [...] should be multiplied by the estimated BMI. [facility] CHEM PANEL Chloride Lvl 106 95 - 109 03/12/2017 [facility] CHEM PANEL Potassium Lvl 3.9 3.5 - 5.1 03/12/2017 [facility] CHEM PANEL Sodium Lvl 140 135 - 145 03/12/2017 [facility] CHEM PANEL Total Protein 7.7 6.4 - 8.4 03/12/2017 [facility] CHEM PANEL Bili Total 0.4 0.2 - 1.3 03/12/2017 [facility] CHEM PANEL Alk Phos 110 39 - 136 03/12/2017 [facility] CHEM PANEL AST 14 0 - 37 03/12/2017 [facility] CHEM PANEL Calcium Lvl 8.9 8.5 - 10.5 03/12/2017 [facility] CHEM PANEL CO2 25 24 - 32 03/12/2017 [facility] CHEM PANEL ALT 20 0 - 65 03/12/2017 [facility] CHEM PANEL Albumin Lvl 3.3 3.5 - 5.0 03/12/2017 [facility] CHEM PANEL Glucose Lvl 102 70 - 99 03/12/2017 [facility] CHEM PANEL Creatinine Lvl 0.94 0.50 - 1.40 03/12/2017 [facility] CHEM PANEL BUN 11 7 - 22 03/12/2017 [facility] ENDOCRINOLOGY S Preg Negative *NA* (03/12/17 4:01 PM) Negative 03/12/2017 [facility] HEMATOLOGY Eosinophils 0.3 0.0 - 4.0 03/12/2017 [facility] HEMATOLOGY Monocytes 4.7 2.0 - 12.0 03/12/2017 [facility] HEMATOLOGY Segs 87.0 45.0 - 75.0 03/12/2017 [facility] HEMATOLOGY Lymphocytes 7.3 20.0 - 40.0 03/12/2017 [facility] HEMATOLOGY Basophils # 0.1 0.0 - 0.2 03/12/2017 [facility] HEMATOLOGY Monocytes # 0.9 0.0 - 0.8 03/12/2017 [facility] HEMATOLOGY Segs-Bands # 16.9 1.5 - 8.1 03/12/2017 [facility] HEMATOLOGY Basophils 0.7 0.0 - 1.0 03/12/2017 [facility] HEMATOLOGY Lymphocytes # 1.4 1.0 - 5.5 03/12/2017 [facility] HEMATOLOGY Microcyte 1+ *ABN* (03/12/17 4:01 PM) None Seen 03/12/2017 [facility] HEMATOLOGY PTT 28.5 22.9 - 35.8 03/12/2017 [facility] HEMATOLOGY PT 13.1 12.0 - 14.7 03/12/2017 [facility] HEMATOLOGY INR 0.97 0.85 - 1.17 03/12/2017 [facility] HEMATOLOGY Platelet 302 133 - 450 03/12/2017 [facility] HEMATOLOGY MPV 8.2 7.4 - 10.4 03/12/2017 [facility] HEMATOLOGY RBC 5.06 4.20 - 5.40 03/12/2017 [facility] HEMATOLOGY WBC 19.5 3.7 - 10.4 03/12/2017 [facility] HEMATOLOGY Hgb 13.0 12.0 - 16.0 03/12/2017 [facility] HEMATOLOGY MCV 77.2 80.0 - 98.0 03/12/2017 [facility] HEMATOLOGY Hct 39.1 36.0 - 48.0 03/12/2017 [facility] HEMATOLOGY MCHC 33.2 32.0 - 36.0 03/12/2017 [facility] HEMATOLOGY MCH 25.6 27.0 - 31.0 03/12/2017 [facility] HEMATOLOGY RDW 15.4 11.5 - 14.5 03/12/2017 [facility] CARDIAC ENZYMES Troponin-I <0.02 0.00 - 0.40 11/05/2016 [facility] CARDIAC ENZYMES CK MB Index <1.4 0.0 - 2.5 11/05/2016 [facility] CARDIAC ENZYMES CK MB <0.5 0.5 - 3.6 11/05/2016 [facility] CARDIAC ENZYMES Total CK 37 12 - 191 11/05/2016 [facility] CARDIAC ENZYMES CK MB Index 2.9 0.0 - 2.5 11/05/2016 [facility] CARDIAC ENZYMES BNP 9 <=100 pg/mL 11/05/2016 [facility] CARDIAC ENZYMES Troponin-I <0.02 0.00 - 0.40 11/05/2016 [facility] CARDIAC ENZYMES Total CK 24 12 - 191 11/05/2016 [facility] CARDIAC ENZYMES CK MB 0.7 0.5 - 3.6 11/05/2016 [facility] CHEM PANEL Magnesium Lvl 2.0 1.8 - 2.4 11/05/2016 [facility] CHEM PANEL Bili Total 0.2 0.2 - 1.3 11/05/2016 [facility] CHEM PANEL eGFR 92 11/05/2016 Result Comment: The eGFR is calculated [...] should be multiplied by the estimated BMI. [facility] CHEM PANEL AGAP 10.6 10.0 - 20.0 11/05/2016 [facility] CHEM PANEL B/C Ratio 16 6 - 25 11/05/2016 [facility] CHEM PANEL A/G Ratio 0.8 0.7 - 1.6 11/05/2016 [facility] CHEM PANEL Globulin 3.9 2.7 - 4.2 11/05/2016 [facility] CHEM PANEL BUN 13 7 - 22 11/05/2016 [facility] CHEM PANEL Glucose Lvl 109 70 - 99 11/05/2016 [facility] CHEM PANEL Calcium Lvl 9.0 8.5 - 10.5 11/05/2016 [facility] CHEM PANEL Total Protein 6.9 6.4 - 8.4 11/05/2016 [facility] CHEM PANEL AST 7 0 - 37 11/05/2016 [facility] CHEM PANEL Sodium Lvl 140 135 - 145 11/05/2016 [facility] CHEM PANEL Creatinine Lvl 0.81 0.50 - 1.40 11/05/2016 [facility] CHEM PANEL ALT 13 0 - 65 11/05/2016 [facility] CHEM PANEL Alk Phos 97 39 - 136 11/05/2016 [facility] CHEM PANEL Albumin Lvl 3.0 3.5 - 5.0 11/05/2016 [facility] CHEM PANEL Chloride Lvl 106 95 - 109 11/05/2016 [facility] CHEM PANEL Potassium Lvl 3.6 3.5 - 5.1 11/05/2016 [facility] CHEM PANEL CO2 27 24 - 32 11/05/2016 [facility] CHEM PANEL Lipase Lvl 96 73 - 393 11/05/2016 [facility] ENDOCRINOLOGY S Preg Negative *NA* (11/04/16 11:02 PM) Negative 11/05/2016 [facility] HEMATOLOGY Monocytes # 0.7 0.0 - 0.8 11/05/2016 [facility] HEMATOLOGY Lymphocytes # 3.2 1.0 - 5.5 11/05/2016 [facility] HEMATOLOGY Segs-Bands # 7.1 1.5 - 8.1 11/05/2016 [facility] HEMATOLOGY Monocytes 5.9 2.0 - 12.0 11/05/2016 [facility] Lymphocytes 28.4 20.0 - 40.0 11/05/2016 [facility] HEMATOLOGY Segs 63.7 45.0 - 75.0 11/05/2016 [facility] HEMATOLOGY Basophils 0.7 0.0 - 1.0 11/05/2016 [facility] HEMATOLOGY Eosinophils 1.3 0.0 - 4.0 11/05/2016 [facility] HEMATOLOGY Basophils # 0.1 0.0 - 0.2 11/05/2016 [facility] HEMATOLOGY Eosinophils # 0.1 0.0 - 0.5 11/05/2016 [facility] HEMATOLOGY Microcyte 1+ *ABN* (11/04/16 11:02 PM) None Seen 11/05/2016 [facility] HEMATOLOGY PTT 29.2 22.9 - 35.8 11/05/2016 [facility] HEMATOLOGY INR 1.01 0.85 - 1.17 11/05/2016 [facility] HEMATOLOGY PT 13.5 12.0 - 14.7 11/05/2016 [facility] HEMATOLOGY Platelet 280 133 - 450 11/05/2016 [facility] HEMATOLOGY RDW 15.6 11.5 - 14.5 11/05/2016 [facility] MCHC 34.3 32.0 - 36.0 11/05/2016 [facility] MCH 27.0 27.0 - 31.0 11/05/2016 [facility] [facility] H[facility] 35.6 36.0 - 48.0 11/05/2016 [facility] HEMATOLOGY Hgb 12.2 12.0 - 16.0 11/05/2016 [facility] HEMATOLOGY RBC 4.53 4.20 - 5.40 11/05/2016 [facility] HEMATOLOGY WBC 11.1 3.7 - 10.4 11/05/2016 [facility] HEMATOLOGY MCV 78.6 80.0 - 98.0 11/05/2016 [facility] HEMATOLOGY MPV 8.4 7.4 - 10.4 11/05/2016 [facility] CARDIAC ENZYMES Troponin-I <0.02 0.00 - 0.40 05/17/2016 [facility] URINE AND STOOL UA Urobilinogen <=1.0 mg/dL 0.1 - 1.0 05/17/2016 [facility] URINE AND STOOL UA Glucose Negative mg/dL Negative mg/dL 05/17/2016 [facility] URINE AND STOOL UA Ketones Negative mg/dL Negative mg/dL 05/17/2016 [facility] URINE AND STOOL UA Bili Negative *NA* (05/17/16 3:53 AM) Negative 05/17/2016 [facility] URINE AND STOOL UA Protein Negative mg/dL Negative mg/dL 05/17/2016 [facility] URINE AND STOOL UA Spec Grav 1.023 <=1.030 05/17/2016 [facility] URINE AND STOOL UA pH 5.0 5.0 - 8.0 05/17/2016 [facility] URINE AND STOOL UA Color Yellow *NA* (05/17/16 3:53 AM) Yellow 05/17/2016 [facility] URINE AND STOOL UA Turbidity Slight *ABN* (05/17/16 3:53 AM) Clear 05/17/2016 [facility] URINE AND STOOL UA Mucus Few /LPF None Seen /LPF 05/17/2016 [facility] URINE AND STOOL UA Trans Epi 1 <=0 /LPF 05/17/2016 [facility] URINE AND STOOL UA RBC 8 0 - 2 05/17/2016 [facility] URINE AND STOOL UA Leuk Est Moderate *ABN* (05/17/16 3:53 AM) Negative 05/17/2016 [facility] URINE AND STOOL UA Sq Epi Many /LPF Few /LPF 05/17/2016 [facility] URINE AND STOOL UA WBC 11 0 - 5 05/17/2016 [facility] URINE AND STOOL UA Blood Negative (05/17/16 3:53 AM) Negative 05/17/2016 [facility] URINE AND STOOL UA Nitrite Negative (05/17/16 3:53 AM) Negative 05/17/2016 [facility] URINE CHEM U Preg Negative (05/17/16 3:53 AM) Negative 05/17/2016 [facility] CHEM PANEL Lipase Lvl 228 73 - 393 05/17/2016 [facility] CHEM PANEL eGFR 95 05/17/2016 Result Comment: The eGFR is calculated [...] should be multiplied by the estimated BMI. [facility] CHEM PANEL Alk Phos 111 39 - 136 05/17/2016 [facility] CHEM PANEL Bili Total 0.4 0.2 - 1.3 05/17/2016 [facility] CHEM PANEL AST 41 0 - 37 05/17/2016 [facility] CHEM PANEL Albumin Lvl 3.4 3.5 - 5.0 05/17/2016 [facility] CHEM PANEL Total Protein 7.3 6.4 - 8.4 05/17/2016 [facility] CHEM PANEL Calcium Lvl 8.8 8.5 - 10.5 05/17/2016 [facility] CHEM PANEL ALT 50 0 - 65 05/17/2016 [facility] CHEM PANEL CO2 25 24 - 32 05/17/2016 [facility] CHEM PANEL Chloride Lvl 109 95 - 109 05/17/2016 [facility] CHEM PANEL Sodium Lvl 142 135 - 145 05/17/2016 [facility] CHEM PANEL Creatinine Lvl 0.79 0.50 - 1.40 05/17/2016 [facility] CHEM PANEL Potassium Lvl 3.7 3.5 - 5.1 05/17/2016 [facility] CHEM PANEL Glucose Lvl 99 70 - 99 05/17/2016 [facility] CHEM PANEL BUN 13 7 - 22 05/17/2016 [facility] CHEM PANEL A/G Ratio 0.9 0.7 - 1.6 05/17/2016 [facility] CHEM PANEL Globulin 3.9 2.7 - 4.2 05/17/2016 [facility] CHEM PANEL B/C Ratio 16 6 - 25 05/17/2016 [facility] CHEM PANEL AGAP 11.7 10.0 - 20.0 05/17/2016 [facility] HEMATOLOGY Eosinophils 1.6 0.0 - 4.0 05/17/2016 [facility] HEMATOLOGY Basophils 0.9 0.0 - 1.0 05/17/2016 [facility] HEMATOLOGY Segs-Bands # 3.7 1.5 - 8.1 05/17/2016 [facility] HEMATOLOGY Monocytes 7.5 2.0 - 12.0 05/17/2016 [facility] HEMATOLOGY Monocytes # 0.6 0.0 - 0.8 05/17/2016 [facility] HEMATOLOGY Basophils # 0.1 0.0 - 0.2 05/17/2016 [facility] HEMATOLOGY Lymphocytes # 3.1 1.0 - 5.5 05/17/2016 [facility] HEMATOLOGY Eosinophils # 0.1 0.0 - 0.5 05/17/2016 [facility] HEMATOLOGY Lymphocytes 40.9 20.0 - 40.0 05/17/2016 [facility] HEMATOLOGY Segs 49.1 45.0 - 75.0 05/17/2016 [facility] HEMATOLOGY MPV 7.8 7.4 - 10.4 05/17/2016 [facility] HEMATOLOGY WBC 7.5 3.7 - 10.4 05/17/2016 [facility] HEMATOLOGY RBC 4.45 4.20 - 5.40 05/17/2016 [facility] HEMATOLOGY Hct 35.5 36.0 - 48.0 05/17/2016 [facility] HEMATOLOGY MCH 25.8 27.0 - 31.0 05/17/2016 [facility] HEMATOLOGY Hgb 11.5 12.0 - 16.0 05/17/2016 [facility] HEMATOLOGY MCV 79.7 80.0 - 98.0 05/17/2016 [facility] HEMATOLOGY MCHC 32.4 32.0 - 36.0 05/17/2016 [facility] HEMATOLOGY RDW 18.7 11.5 - 14.5 05/17/2016 [facility] HEMATOLOGY Platelet 238 133 - 450 05/17/2016 [facility] CARDIAC ENZYMES Troponin-I <0.02 0.00 - 0.40 05/13/2016 [facility] IMMUNOLOGY [place] Scr Negative (05/13/16 12:16 PM) Negative 05/13/2016 [facility] URINE AND STOOL UA Urobilinogen <=1.0 mg/dL 0.1 - 1.0 05/13/2016 [facility] URINE AND STOOL UA Bacteria Occasional /HPF None Seen /HPF 05/13/2016 [facility] URINE AND STOOL UA WBC 5 0 - 5 05/13/2016 [facility] URINE AND STOOL UA Sq Epi Moderate /LPF Few /LPF 05/13/2016 [facility] URINE AND STOOL UA Leuk Est Moderate *ABN* (05/13/16 12:13 PM) Negative 05/13/2016 [facility] URINE AND STOOL UA Nitrite Negative (05/13/16 12:13 PM) Negative 05/13/2016 [facility] URINE AND STOOL UA Blood Negative (05/13/16 12:13 PM) Negative 05/13/2016 [facility] URINE AND STOOL UA Bili Negative *NA* (05/13/16 12:13 PM) Negative 05/13/2016 [facility] URINE AND STOOL UA Ketones Negative mg/dL Negative mg/dL 05/13/2016 [facility] URINE AND STOOL UA pH 5.0 5.0 - 8.0 05/13/2016 [facility] URINE AND STOOL UA Spec Grav 1.024 <=1.030 05/13/2016 [facility] URINE AND STOOL UA Turbidity Clear (05/13/16 12:13 PM) Clear 05/13/2016 [facility] URINE AND STOOL UA Glucose Negative mg/dL Negative mg/dL 05/13/2016 [facility] URINE AND STOOL UA Protein Negative mg/dL Negative mg/dL 05/13/2016 [facility] URINE AND STOOL UA Color Yellow *NA* (05/13/16 12:13 PM) Yellow 05/13/2016 [facility] CHEM PANEL Lactic Acid Lvl 0.6 0.5 - 2.2 05/13/2016 [facility] CARDIAC ENZYMES Troponin-I <0.02 0.00 - 0.40 05/13/2016 [facility] CARDIAC ENZYMES CK MB 0.6 0.5 - 3.6 05/13/2016 [facility] CARDIAC ENZYMES Total CK 44 12 - 191 05/13/2016 [facility] CARDIAC ENZYMES CK MB Index 1.4 0.0 - 2.5 05/13/2016 [facility] CHEM PANEL Procalcitonin Lvl 0.08 0.00 - 0.10 05/13/2016 [facility] CHEM PANEL eGFR 71 05/13/2016 Result Comment: The eGFR is calculated [...] by the estimated BMI. [facility] CHEM PANEL Alk Phos 112 39 - 136 05/13/2016 [facility] CHEM PANEL Bili Total 0.5 0.2 - 1.3 05/13/2016 [facility] CHEM PANEL B/C Ratio 14 6 - 25 05/13/2016 [facility] CHEM PANEL AGAP 12.1 10.0 - 20.0 05/13/2016 [facility] CHEM PANEL A/G Ratio 0.9 0.7 - 1.6 05/13/2016 [facility] CHEM PANEL Globulin 3.6 2.7 - 4.2 05/13/2016 [facility] CHEM PANEL AST 48 0 - 37 05/13/2016 [facility] CHEM PANEL ALT 68 0 - 65 05/13/2016 [facility] CHEM PANEL Albumin Lvl 3.4 3.5 - 5.0 05/13/2016 [facility] CHEM PANEL Calcium Lvl 8.2 8.5 - 10.5 05/13/2016 [facility] CHEM PANEL Potassium Lvl 4.1 3.5 - 5.1 05/13/2016 [facility] CHEM PANEL CO2 25 24 - 32 05/13/2016 [facility] CHEM PANEL Chloride Lvl 107 95 - 109 05/13/2016 [facility] CHEM PANEL Total Protein 7.0 6.4 - 8.4 05/13/2016 [facility] CHEM PANEL BUN 14 7 - 22 05/13/2016 [facility] CHEM PANEL Glucose Lvl 97 70 - 99 05/13/2016 [facility] CHEM PANEL Creatinine Lvl 1.00 0.50 - 1.40 05/13/2016 [facility] CHEM PANEL Sodium Lvl 140 135 - 145 05/13/2016 [facility] ENDOCRINOLOGY S Preg Negative *NA* (05/13/16 9:15 AM) Negative 05/13/2016 [facility] HEMATOLOGY Monocytes 10.0 2.0 - 12.0 05/13/2016 [facility] HEMATOLOGY Eosinophils 3.0 0.0 - 4.0 05/13/2016 [facility] HEMATOLOGY Lymphocytes 48.0 20.0 - 40.0 05/13/2016 [facility] HEMATOLOGY Segs 37.0 45.0 - 75.0 05/13/2016 [facility] HEMATOLOGY Bands 0.0 0.0 - 11.0 05/13/2016 [facility] HEMATOLOGY Monocytes # 0.9 0.0 - 0.8 05/13/2016 [facility] HEMATOLOGY Eosinophils # 0.3 0.0 - 0.5 05/13/2016 [facility] HEMATOLOGY Lymphocytes # 4.4 1.0 - 5.5 05/13/2016 [facility] HEMATOLOGY Segs-Bands # 3.3 1.5 - 8.1 05/13/2016 [facility] HEMATOLOGY Polychrom Slight 05/13/2016 [facility] HEMATOLOGY Atypical Lymphs 2.0 <=0.0 % 05/13/2016 [facility] HEMATOLOGY Plt Morph Normal (05/13/16 9:15 AM) 05/13/2016 [facility] HEMATOLOGY MCHC 32.7 32.0 - 36.0 05/13/2016 [facility] HEMATOLOGY MCH 26.2 27.0 - 31.0 05/13/2016 [facility] HEMATOLOGY MCV 80.1 80.0 - 98.0 05/13/2016 [facility] HEMATOLOGY Hct 34.6 36.0 - 48.0 05/13/2016 [facility] HEMATOLOGY Hgb 11.3 12.0 - 16.0 05/13/2016 [facility] HEMATOLOGY WBC 8.8 3.7 - 10.4 05/13/2016 [facility] HEMATOLOGY MPV 8.3 7.4 - 10.4 05/13/2016 [facility] HEMATOLOGY Platelet 231 133 - 450 05/13/2016 [facility] HEMATOLOGY RDW 18.5 11.5 - 14.5 05/13/2016 [facility] HEMATOLOGY RBC 4.32 4.20 - 5.40 05/13/2016 [facility] HEMATOLOGY PTT 27.2 22.9 - 35.8 05/13/2016 [facility] HEMATOLOGY INR 1.01 0.85 - 1.17 05/13/2016 [facility] HEMATOLOGY PT 13.5 12.0 - 14.7 05/13/2016 [facility] VIRAL - SEROLOGY Influ A Negative (05/13/16 9:15 AM) Negative 05/13/2016 [facility] VIRAL - SEROLOGY Influ B Negative (05/13/16 9:15 AM) Negative 05/13/2016 [facility] URINE AND STOOL UA Spec Grav 1.024 <=1.030 04/20/2016 [facility] URINE AND STOOL UA Color Yellow *NA* (04/19/16 11:04 PM) Yellow 04/20/2016 [facility] URINE AND STOOL UA Turbidity Clear (04/19/16 11:04 PM) Clear 04/20/2016 [facility] URINE AND STOOL UA Sq Epi Few /LPF Few /LPF 04/20/2016 [facility] URINE AND STOOL UA Mucus Few /LPF None Seen /LPF 04/20/2016 [facility] URINE AND STOOL UA Nitrite Negative (04/19/16 11:04 PM) Negative 04/20/2016 [facility] URINE AND STOOL UA Leuk Est Trace *ABN* (04/19/16 11:04 PM) Negative 04/20/2016 [facility] URINE AND STOOL UA WBC 3 0 - 5 04/20/2016 [facility] URINE AND STOOL UA RBC 24 0 - 2 04/20/2016 [facility] URINE AND STOOL UA Urobilinogen <=1.0 mg/dL 0.1 - 1.0 04/20/2016 [facility] URINE AND STOOL UA Protein Negative mg/dL Negative mg/dL 04/20/2016 [facility] URINE AND STOOL UA pH 7.0 5.0 - 8.0 04/20/2016 [facility] URINE AND STOOL UA Ketones Negative mg/dL Negative mg/dL 04/20/2016 [facility] URINE AND STOOL UA Blood Small *ABN* (04/19/16 11:04 PM) Negative 04/20/2016 [facility] URINE AND STOOL UA Bili Negative *NA* (04/19/16 11:04 PM) Negative 04/20/2016 [facility] URINE AND STOOL UA Glucose Negative mg/dL Negative mg/dL 04/20/2016 [facility] URINE CHEM U Preg Negative (04/19/16 11:04 PM) Negative 04/20/2016 [facility] CHEM PANEL ALT 32 0 - 65 04/20/2016 [facility] CHEM PANEL Bili Total 0.4 0.2 - 1.3 04/20/2016 [facility] CHEM PANEL Alk Phos 103 39 - 136 04/20/2016 [facility] CHEM PANEL Albumin Lvl 3.2 3.5 - 5.0 04/20/2016 [facility] CHEM PANEL CO2 26 24 - 32 04/20/2016 [facility] CHEM PANEL AST 30 0 - 37 04/20/2016 [facility] CHEM PANEL Total Protein 7.5 6.4 - 8.4 04/20/2016 [facility] CHEM PANEL Calcium Lvl 8.5 8.5 - 10.5 04/20/2016 [facility] CHEM PANEL eGFR 78 04/20/2016 Result Comment: The eGFR is calculated [...] should be multiplied by the estimated BMI. [facility] CHEM PANEL Creatinine Lvl 0.93 0.50 - 1.40 04/20/2016 [facility] CHEM PANEL BUN 11 7 - 22 04/20/2016 [facility] CHEM PANEL Sodium Lvl 140 135 - 145 04/20/2016 [facility] CHEM PANEL Chloride Lvl 106 95 - 109 04/20/2016 [facility] CHEM PANEL Potassium Lvl 3.7 3.5 - 5.1 04/20/2016 [facility] CHEM PANEL Glucose Lvl 97 70 - 99 04/20/2016 [facility] CHEM PANEL Globulin 4.3 2.7 - 4.2 04/20/2016 [facility] CHEM PANEL A/G Ratio 0.7 0.7 - 1.6 04/20/2016 [facility] CHEM PANEL B/C Ratio 12 6 - 25 04/20/2016 [facility] CHEM PANEL AGAP 11.7 10.0 - 20.0 04/20/2016 [facility] CHEM PANEL Lactic Acid Lvl 0.8 0.5 - 2.2 04/20/2016 [facility] HEMATOLOGY WBC 6.7 3.7 - 10.4 04/20/2016 [facility] HEMATOLOGY RBC 4.72 4.20 - 5.40 04/20/2016 [facility] HEMATOLOGY Hct 36.8 36.0 - 48.0 04/20/2016 [facility] Hgb 12.3 12.0 - 16.0 04/20/2016 [facility] HEMATOLOGY MCH 26.1 27.0 - 31.0 04/20/2016 [facility] HEMATOLOGY MCV 77.9 80.0 - 98.0 04/20/2016 [facility] MCHC 33.5 32.0 - 36.0 04/20/2016 [facility] HEMATOLOGY Platelet 252 133 - 450 04/20/2016 [facility] HEMATOLOGY RDW 15.6 11.5 - 14.5 04/20/2016 [facility] MPV 8.3 7.4 - 10.4 04/20/2016 [facility] HEMATOLOGY Segs 60.8 45.0 - 75.0 04/20/2016 [facility] HEMATOLOGY Monocytes 7.2 2.0 - 12.0 04/20/2016 [facility] Lymphocytes 27.9 20.0 - 40.0 04/20/2016 [facility] HEMATOLOGY Basophils 1.2 0.0 - 1.0 04/20/2016 [facility] Monocytes # 0.5 0.0 - 0.8 04/20/2016 [facility] HEMATOLOGY Lymphocytes # 1.9 1.0 - 5.5 04/20/2016 [facility] HEMATOLOGY Eosinophils 2.9 0.0 - 4.0 04/20/2016 [facility] Segs-Bands # 4.1 1.5 - 8.1 04/20/2016 [facility] HEMATOLOGY Eosinophils # 0.2 0.0 - 0.5 04/20/2016 [facility] Microcyte 1+ *ABN* (04/19/16 10:27 PM) None Seen 04/20/2016 [facility] HEMATOLOGY Basophils # 0.1 0.0 - 0.2 04/20/2016 [facility] VIRAL - SEROLOGY Influ B Negative (04/19/16 9:06 PM) Negative 04/20/2016 [facility] VIRAL - SEROLOGY Influ A Negative (04/19/16 9:06 PM) Negative 04/20/2016 [facility] URINE AND STOOL UA Urobilinogen <=1.0 mg/dL 0.1 - 1.0 01/07/2016 [facility] URINE AND STOOL UA Bacteria Occasional /HPF None Seen /HPF 01/07/2016 [facility] URINE AND STOOL UA RBC 7 0 - 2 01/07/2016 [facility] URINE AND STOOL UA WBC 8 0 - 5 01/07/2016 [facility] URINE AND STOOL UA Blood Negative (01/07/16 3:02 AM) Negative 01/07/2016 [facility] URINE AND STOOL UA Bili Negative *NA* (01/07/16 3:02 AM) Negative 01/07/2016 [facility] URINE AND STOOL UA Mucus Few /LPF None Seen /LPF 01/07/2016 [facility] URINE AND STOOL UA Sq Epi Many /LPF Few /LPF 01/07/2016 [facility] URINE AND STOOL UA Leuk Est Large *ABN* (01/07/16 3:02 AM) Negative 01/07/2016 [facility] URINE AND STOOL UA Nitrite Negative (01/07/16 3:02 AM) Negative 01/07/2016 [facility] URINE AND STOOL UA Turbidity Slight *ABN* (01/07/16 3:02 AM) Clear 01/07/2016 [facility] URINE AND STOOL UA Color Yellow *NA* (01/07/16 3:02 AM) Yellow 01/07/2016 [facility] URINE AND STOOL UA Ketones Negative mg/dL Negative mg/dL 01/07/2016 [facility] URINE AND STOOL UA Spec Grav 1.026 <=1.030 01/07/2016 [facility] URINE AND STOOL UA Glucose Negative mg/dL Negative mg/dL 01/07/2016 [facility] URINE AND STOOL UA Protein Negative mg/dL Negative mg/dL 01/07/2016 [facility] URINE AND STOOL UA pH 6.0 5.0 - 8.0 01/07/2016 [facility] URINE CHEM U Preg Negative (01/07/16 3:02 AM) Negative 01/07/2016 [facility] CHEM PANEL Glucose Lvl 99 70 - 99 01/07/2016 [facility] CHEM PANEL eGFR 82 01/07/2016 Result Comment: The eGFR is calculated [...] should be multiplied by the estimated BMI. [facility] CHEM PANEL BUN 14 7 - 22 01/07/2016 [facility] CHEM PANEL Creatinine Lvl 0.89 0.50 - 1.40 01/07/2016 [facility] CHEM PANEL Potassium Lvl 3.6 3.5 - 5.1 01/07/2016 [facility] CHEM PANEL Sodium Lvl 139 135 - 145 01/07/2016 [facility] CHEM PANEL Calcium Lvl 8.6 8.5 - 10.5 01/07/2016 [facility] CHEM PANEL Chloride Lvl 108 95 - 109 01/07/2016 [facility] CHEM PANEL CO2 23 24 - 32 01/07/2016 [facility] CHEM PANEL AGAP 11.6 10.0 - 20.0 01/07/2016 [facility] MCHC 33.1 32.0 - 36.0 01/07/2016 [facility] RDW 14.5 11.5 - 14.5 01/07/2016 [facility] Platelet 315 133 - 450 01/07/2016 [facility] MPV 8.1 7.4 - 10.4 01/07/2016 [facility] MCV 80.4 80.0 - 98.0 01/07/2016 [facility] MCH 26.6 27.0 - 31.0 01/07/2016 [facility] Hct 38.7 36.0 - 48.0 01/07/2016 [facility] RBC 4.82 4.20 - 5.40 01/07/2016 [facility] Hgb 12.8 12.0 - 16.0 01/07/2016 [facility] WBC 14.6 3.7 - 10.4 01/07/2016 [facility] Segs-Bands # 10.9 1.5 - 8.1 01/07/2016 [facility] Lymphocytes # 2.7 1.0 - 5.5 01/07/2016 [facility] Monocytes # 0.7 0.0 - 0.8 01/07/2016 [facility] HEMATOLOGY Eosinophils # 0.1 0.0 - 0.5 01/07/2016 [facility] HEMATOLOGY Lymphocytes 18.5 20.0 - 40.0 01/07/2016 [facility] HEMATOLOGY Eosinophils 0.9 0.0 - 4.0 01/07/2016 [facility] HEMATOLOGY Segs 74.8 45.0 - 75.0 01/07/2016 [facility] HEMATOLOGY Monocytes 4.8 2.0 - 12.0 01/07/2016 [facility] HEMATOLOGY Basophils 1.0 0.0 - 1.0 01/07/2016 [facility] HEMATOLOGY Basophils # 0.1 0.0 - 0.2 01/07/2016 [facility] CHEM PANEL eGFR 69 12/20/2015 Result Comment: The eGFR is calculated [...] should be multiplied by the estimated BMI. [facility] CHEM PANEL BUN 11 7 - 22 12/20/2015 [facility] CHEM PANEL Glucose Lvl 92 70 - 99 12/20/2015 [facility] CHEM PANEL Calcium Lvl 8.7 8.5 - 10.5 12/20/2015 [facility] CHEM PANEL Sodium Lvl 141 135 - 145 12/20/2015 [facility] CHEM PANEL Creatinine Lvl 1.02 0.50 - 1.40 12/20/2015 [facility] CHEM PANEL Potassium Lvl 3.9 3.5 - 5.1 12/20/2015 [facility] CHEM PANEL CO2 26 24 - 32 12/20/2015 [facility] CHEM PANEL Chloride Lvl 106 95 - 109 12/20/2015 [facility] CHEM PANEL Alk Phos 110 39 - 136 12/20/2015 [facility] CHEM PANEL Bili Total 0.3 0.2 - 1.3 12/20/2015 [facility] CHEM PANEL Total Protein 7.3 6.4 - 8.4 12/20/2015 [facility] CHEM PANEL Albumin Lvl 3.3 3.5 - 5.0 12/20/2015 [facility] CHEM PANEL ALT 27 0 - 65 12/20/2015 [facility] CHEM PANEL AST 17 0 - 37 12/20/2015 [facility] CHEM PANEL A/G Ratio 0.8 0.7 - 1.6 12/20/2015 [facility] CHEM PANEL AGAP 12.9 10.0 - 20.0 12/20/2015 [facility] CHEM PANEL Globulin 4.0 2.0 - 4.0 12/20/2015 [facility] CHEM PANEL B/C Ratio 11 6 - 25 12/20/2015 [facility] HEMATOLOGY MPV 8.2 7.4 - 10.4 12/20/2015 [facility] HEMATOLOGY Platelet 309 133 - 450 12/20/2015 [facility] HEMATOLOGY MCH 26.8 27.0 - 31.0 12/20/2015 [facility] HEMATOLOGY MCV 81.3 80.0 - 98.0 12/20/2015 [facility] HEMATOLOGY RDW 14.3 11.5 - 14.5 12/20/2015 [facility] HEMATOLOGY MCHC 32.9 32.0 - 36.0 12/20/2015 [facility] HEMATOLOGY WBC 16.6 3.7 - 10.4 12/20/2015 [facility] HEMATOLOGY RBC 4.87 4.20 - 5.40 12/20/2015 [facility] HEMATOLOGY Hct 39.6 36.0 - 48.0 12/20/2015 [facility] HEMATOLOGY Hgb 13.0 12.0 - 16.0 12/20/2015 [facility] HEMATOLOGY Basophils # 0.2 0.0 - 0.2 12/20/2015 [facility] HEMATOLOGY Segs-Bands # 13.1 1.5 - 8.1 12/20/2015 [facility] HEMATOLOGY Monocytes 3.5 2.0 - 12.0 12/20/2015 [facility] HEMATOLOGY Eosinophils 0.7 0.0 - 4.0 12/20/2015 [facility] HEMATOLOGY Basophils 1.1 0.0 - 1.0 12/20/2015 [facility] HEMATOLOGY Segs 79.3 45.0 - 75.0 12/20/2015 [facility] HEMATOLOGY Lymphocytes 15.4 20.0 - 40.0 12/20/2015 [facility] HEMATOLOGY Lymphocytes # 2.5 1.0 - 5.5 12/20/2015 [facility] HEMATOLOGY Eosinophils # 0.1 0.0 - 0.5 12/20/2015 [facility] HEMATOLOGY Monocytes # 0.6 0.0 - 0.8 12/20/2015 [facility] URINE AND STOOL UA Urobilinogen <=1.0 mg/dL 0.1 - 1.0 12/20/2015 [facility] URINE AND STOOL UA Sq Epi Occasional /LPF Few /LPF 12/20/2015 [facility] URINE AND STOOL UA WBC 2 0 - 5 12/20/2015 [facility] URINE AND STOOL UA Leuk Est Small *ABN* (12/20/15 1:23 AM) Negative 12/20/2015 [facility] URINE AND STOOL UA Ketones Trace mg/dL Negative mg/dL 12/20/2015 [facility] URINE AND STOOL UA Bili Negative *NA* (12/20/15 1:23 AM) Negative 12/20/2015 [facility] URINE AND STOOL UA Glucose Negative mg/dL Negative mg/dL 12/20/2015 [facility] URINE AND STOOL UA Bacteria Occasional /HPF None Seen /HPF 12/20/2015 [facility] URINE AND STOOL UA Mucus Many /LPF None Seen /LPF 12/20/2015 [facility] URINE AND STOOL UA RBC 3 0 - 2 12/20/2015 [facility] URINE AND STOOL UA Color Yellow *NA* (12/20/15 1:23 AM) Yellow 12/20/2015 [facility] URINE AND STOOL UA Turbidity Clear (12/20/15 1:23 AM) Clear 12/20/2015 [facility] URINE AND STOOL UA Blood Large *ABN* (12/20/15 1:23 AM) Negative 12/20/2015 [facility] URINE AND STOOL UA Nitrite Negative (12/20/15 1:23 AM) Negative 12/20/2015 [facility] URINE AND STOOL UA Protein Negative mg/dL Negative mg/dL 12/20/2015 [facility] URINE AND STOOL UA Spec Grav 1.026 <=1.030 12/20/2015 [facility] URINE AND STOOL UA pH 5.0 5.0 - 8.0 12/20/2015 [facility] URINE CHEM U Preg Negative (12/20/15 1:23 AM) Negative 12/20/2015 [facility] CHEMISTRY AGAP 11.9 10.0 - 20.0 07/17/2013 Normal [facility] CHEMISTRY eGFR 44 07/17/2013 <sup>1</sup>Result Comment: The eGFR is calculated using the CKD-EPI formula. In most young, healthy individuals the eGFR will be >90 mL/min/1.73m2. The eGFR declines with age. An eGFR of 60-89 may be normal in some populations, particularly the elderly, for whom the CKD-EPI formula has not been extensively validated. Use of the eGFR is not recommended in the following populations:& lt;br/>
Individuals with unstable creatinine concentrations, including patients [...] should be multiplied by the estimated BMI. [facility] CHEMISTRY Chloride Lvl 106 95 - 109 07/17/2013 Normal [facility] CHEMISTRY Sodium Lvl 140 135 - 145 07/17/2013 Normal [facility] CHEMISTRY Potassium Lvl 3.9 3.5 - 5.1 07/17/2013 Normal [facility] CHEMISTRY Calcium Lvl 8.8 8.5 - 10.5 07/17/2013 Normal [facility] CHEMISTRY CO2 26 24 - 32 07/17/2013 Normal [facility] CHEMISTRY Glucose Lvl 107 70 - 99 07/17/2013 [facility] <sup>2</sup>Interpretive Data: Adult reference range values reflect the clinical guidelines
of the [place] [employer]. [facility] CHEMISTRY BUN 15 7 - 22 07/17/2013 Normal [facility] CHEMISTRY Creatinine Lvl 1.5 0.5 - 1.4 07/17/2013 HI [facility] HEMATOLOGY Monocytes 2.9 2.0 - 12.0 07/17/2013 Normal [facility] HEMATOLOGY Lymphocytes 18.8 20.0 - 40.0 07/17/2013 LOW [facility] HEMATOLOGY Basophils 0.1 0.0 - 1.0 07/17/2013 Normal [facility] HEMATOLOGY Eosinophils 0.1 0.0 - 4.0 07/17/2013 Normal [facility] HEMATOLOGY Segs-Bands # 4.8 1.5 - 8.1 07/17/2013 Normal [facility] HEMATOLOGY Segs 78.1 45.0 - 75.0 07/17/2013 HI [facility] HEMATOLOGY Basophils # 0.0 0.0 - 0.2 07/17/2013 Normal [facility] HEMATOLOGY Lymphocytes # 1.2 1.0 - 5.5 07/17/2013 Normal [facility] HEMATOLOGY Eosinophils # 0.0 0.0 - 0.5 07/17/2013 Normal [facility] HEMATOLOGY Monocytes # 0.2 0.0 - 0.8 07/17/2013 Normal [facility] HEMATOLOGY RBC X 10x6 4.71 4.20 - 5.40 07/17/2013 Normal [facility] HEMATOLOGY WBC X 10x3 6.1 3.7 - 10.4 07/17/2013 Normal [facility] HEMATOLOGY Hct 37.6 36.0 - 48.0 07/17/2013 Normal [facility] HEMATOLOGY Hgb 12.3 12.0 - 16.0 07/17/2013 Normal [facility] HEMATOLOGY MCV 79.9 81.0 - 99.0 07/17/2013 LOW [facility] HEMATOLOGY MCHC 32.8 32.0 - 36.0 07/17/2013 Normal [facility] HEMATOLOGY MCH 26.2 27.0 - 31.0 07/17/2013 LOW [facility] HEMATOLOGY RDW 15.1 11.5 - 14.5 07/17/2013 HI [facility] HEMATOLOGY MPV 8.1 7.4 - 10.4 07/17/2013 Normal [facility] HEMATOLOGY Platelet 289 133 - 450 07/17/2013 Normal [facility] IMMUNOLOGY [facility] HIV 4th GEN Negative (07/17/2013 11:08:00) Negative 07/17/2013 Normal [facility] CHEMISTRY CK MB Index <2.2 0.0 - 2.5 07/02/2012 Normal [facility] CHEMISTRY CK MB <0.5 0.5 - 3.6 07/02/2012 Normal [facility] CHEMISTRY Total CK 23 12 - 191 07/02/2012 Normal [facility] CHEMISTRY eGFR 73 07/02/2012 NA <sup>1</sup>Result Comment: The eGFR is calculated using the CKD-EPI formula. In most young, healthy individuals the eGFR will be >90 mL/min/1.73m2. The eGFR declines with age. An eGFR of 60-89 may be normal in some populations, particularly the elderly, for whom the CKD-EPI formula has not been extensively validated. Use of the eGFR is not recommended in the following populations:& lt;br/>
Individuals with unstable creatinine concentrations, including patients [...] should be multiplied by the estimated BMI. [facility] CHEMISTRY Glucose Lvl 100 70 - 99 07/02/2012 HI <sup>2</sup>Interpretive Data: Adult reference range values reflect the clinical guidelines
of the [place] [employer]. [facility] CHEMISTRY Sodium Lvl 139 135 - 145 07/02/2012 Normal [facility] CHEMISTRY Creatinine Lvl 1.0 0.5 - 1.4 07/02/2012 Normal [facility] CHEMISTRY BUN 12 7 - 22 07/02/2012 Normal [facility] CHEMISTRY ALT 18 0 - 65 07/02/2012 Normal [facility] CHEMISTRY Alk Phos 99 39 - 136 07/02/2012 Normal [facility] CHEMISTRY Albumin Lvl 3.6 3.5 - 5.0 07/02/2012 Normal [facility] CHEMISTRY Bili Total 0.2 0.2 - 1.3 07/02/2012 Normal [facility] CHEMISTRY AST 11 0 - 37 07/02/2012 Normal [facility] CHEMISTRY Chloride Lvl 104 95 - 109 07/02/2012 Normal [facility] CHEMISTRY Potassium Lvl 3.7 3.5 - 5.1 07/02/2012 Normal [facility] CHEMISTRY Total Protein 7.8 6.4 - 8.4 07/02/2012 Normal [facility] CHEMISTRY Calcium Lvl 9.3 8.5 - 10.5 07/02/2012 Normal [facility] CHEMISTRY CO2 28 24 - 32 07/02/2012 Normal [facility] CHEMISTRY Globulin 4.2 2.0 - 4.0 07/02/2012 [facility] CHEMISTRY B/C Ratio 12 6 - 25 07/02/2012 Normal [facility] CHEMISTRY AGAP 10.7 10.0 - 20.0 07/02/2012 Normal [facility] CHEMISTRY A/G Ratio 0.9 0.7 - 1.6 07/02/2012 Normal [facility] CHEMISTRY Troponin-I <0.02 0.00 - 0.40 07/02/2012 Normal [facility] HEMATOLOGY Monocytes # 0.5 0.0 - 0.8 07/02/2012 Normal [facility] HEMATOLOGY Lymphocytes # 2.6 1.0 - 5.5 07/02/2012 Normal [facility] HEMATOLOGY Eosinophils 0.6 0.0 - 4.0 07/02/2012 Normal [facility] Segs-Bands # 9.7 1.5 - 8.1 07/02/2012 HI [facility] HEMATOLOGY Basophils 2.1 0.0 - 1.0 07/02/2012 HI [facility] HEMATOLOGY Basophils # 0.3 0.0 - 0.2 07/02/2012 HI [facility] HEMATOLOGY Eosinophils # 0.1 0.0 - 0.5 07/02/2012 Normal [facility] Segs 73.5 45.0 - 75.0 07/02/2012 Normal [facility] Lymphocytes 20.0 20.0 - 40.0 07/02/2012 Normal [facility] Monocytes 3.8 2.0 - 12.0 07/02/2012 Normal [facility] PTT 29.5 22.9 - 35.8 07/02/2012 Normal <sup>5</sup>Interpretive Data: Heparin Therapeutic Range: 57 - 92 Seconds [facility] PT 13.5 12.0 - 14.7 07/02/2012 Normal [facility] INR 1.01 0.85 - 1.17 07/02/2012 Normal <sup>3</sup>Interpretive Data: RECOMMENDED RANGES FOR PROTIME INR:
2.0-3.0 for most medical and surgical thromboembolic states.
2.5-3.5 for artificial heart valves and recurrent embolism.

INR SHOULD BE USED ONLY FOR PATIENTS ON STABLE ANTICOAGULANT THERAPY. [facility] D-Dimer 4 *ABN* (07/01/2012 22:20:00) 07/02/2012 ABN <sup>4</sup>Interpretive Data: In DIC, quantitative D-Dimer is generally greater than
0.66 ug/mL FEU. Values of quantitative D-Dimer less than
0.40 ug/mL FEU have been reported to be associated with a low
probability of deep vein thrombosis/pulmonary embolism.
This test alone should not be used to rule out DVT/PE. [facility] WBC 13.2 3.7 - 10.4 07/02/2012 HI [facility] RDW 15.1 11.5 - 14.5 07/02/2012 HI [facility] MCHC 33.8 32.0 - 36.0 07/02/2012 Normal [facility] HEMATOLOGY RBC 4.87 4.20 - 5.40 07/02/2012 Normal [facility] HEMATOLOGY MCH 26.5 27.0 - 31.0 07/02/2012 LOW [facility] HEMATOLOGY MCV 78.4 81.0 - 99.0 07/02/2012 [facility] HEMATOLOGY Hct 38.2 36.0 - 48.0 07/02/2012 Normal [facility] HEMATOLOGY Hgb 12.9 12.0 - 16.0 07/02/2012 Normal [facility] HEMATOLOGY Platelet 320 133 - 450 07/02/2012 Normal [facility] HEMATOLOGY MPV 8.4 7.4 - 10.4 07/02/2012 Normal [facility] CHEMISTRY Magnesium Lvl 2.2 1.8 - 2.4 04/25/2012 Normal [facility] CHEMISTRY eGFR 113 04/25/2012 NA <sup>2</sup>Result Comment: The eGFR is calculated using the CKD-EPI formula. In most young, healthy individuals the eGFR will be >90 mL/min/1.73m2. The eGFR declines with age. An eGFR of 60-89 may be normal in some populations, particularly the elderly, for whom the CKD-EPI formula has not been extensively validated. Use of the eGFR is not recommended in the following populations:& lt;br/>
Individuals with unstable creatinine concentrations, including patients [...] should be multiplied by the estimated BMI. [facility] CHEMISTRY Potassium Lvl 4.5 3.5 - 5.1 04/25/2012 Normal [facility] CHEMISTRY Calcium Lvl 8.2 8.5 - 10.5 04/25/2012 LOW [facility] CHEMISTRY CO2 29 24 - 32 04/25/2012 Normal [facility] CHEMISTRY Chloride Lvl 108 95 - 109 04/25/2012 Normal [facility] CHEMISTRY Sodium Lvl 142 135 - 145 04/25/2012 Normal [facility] CHEMISTRY BUN 13 7 - 22 04/25/2012 Normal [facility] CHEMISTRY Glucose Lvl 192 70 - 99 04/25/2012 [facility] <sup>5</sup>Interpretive Data: Adult reference range values reflect the clinical guidelines
of the [place] [employer]. [facility] CHEMISTRY Creatinine Lvl 0.7 0.5 - 1.4 04/25/2012 Normal [facility] CHEMISTRY AGAP 9.5 10.0 - 20.0 04/25/2012 [facility] HEMATOLOGY PT 14.9 12.0 - 14.7 04/25/2012 [facility] HEMATOLOGY INR 1.15 0.85 - 1.17 04/25/2012 Normal <sup>9</sup>Interpretive Data: RECOMMENDED RANGES FOR PROTIME INR:
2.0-3.0 for most medical and surgical thromboembolic states.
2.5-3.5 for artificial heart valves and recurrent embolism.

INR SHOULD BE USED ONLY FOR PATIENTS ON STABLE ANTICOAGULANT THERAPY. [facility] HEMATOLOGY MPV 8.5 7.4 - 10.4 04/25/2012 Normal [facility] HEMATOLOGY Platelet 279 133 - 450 04/25/2012 Normal [facility] HEMATOLOGY RDW 16.2 11.5 - 14.5 04/25/2012 [facility] HEMATOLOGY MCHC 34.2 32.0 - 36.0 04/25/2012 Normal [facility] HEMATOLOGY Hgb 10.5 12.0 - 16.0 04/25/2012 [facility] HEMATOLOGY WBC 11.8 3.7 - 10.4 04/25/2012 [facility] HEMATOLOGY Hct 30.9 36.0 - 48.0 04/25/2012 [facility] HEMATOLOGY MCV 80.4 81.0 - 99.0 04/25/2012 [facility] HEMATOLOGY RBC 3.84 4.20 - 5.40 04/25/2012 [facility] HEMATOLOGY MCH 27.5 27.0 - 31.0 04/25/2012 Normal [facility] HEMATOLOGY Eosinophils # 0.0 0.0 - 0.5 04/25/2012 Normal [facility] HEMATOLOGY Lymphocytes # 1.0 1.0 - 5.5 04/25/2012 Normal [facility] HEMATOLOGY Monocytes # 0.4 0.0 - 0.8 04/25/2012 [facility] HEMATOLOGY Segs-Bands # 10.4 1.5 - 8.1 04/25/2012 [facility] HEMATOLOGY Eosinophils 0.0 0.0 - 4.0 04/25/2012 [facility] HEMATOLOGY Basophils 0.1 0.0 - 1.0 04/25/2012 Normal [facility] HEMATOLOGY Basophils # 0.0 0.0 - 0.2 04/25/2012 Normal [facility] HEMATOLOGY Monocytes 3.1 2.0 - 12.0 04/25/2012 Normal [facility] HEMATOLOGY Segs 88.7 45.0 - 75.0 04/25/2012 HI [facility] HEMATOLOGY Lymphocytes 8.1 20.0 - 40.0 04/25/2012 LOW [facility] CHEMISTRY FiO2 Art 21.0 04/24/2012 NA [facility] CHEMISTRY Mode Art Rm Air (04/24/2012 14:25:00) 04/24/2012 Normal [facility] CHEMISTRY Allens Art Positive (04/24/2012 14:25:00) 04/24/2012 Normal [facility] CHEMISTRY Site Art Right Ra (04/24/2012 14:25:00) 04/24/2012 Normal [facility] CHEMISTRY HCO3 Art 27 22 - 26 04/24/2012 HI [facility] CHEMISTRY O2 Sat Art 93.3 95.0 - 100.0 04/24/2012 LOW [facility] CHEMISTRY BE Art 2 -2-2 - 2 04/24/2012 Normal [facility] CHEMISTRY pH Art 7.40 7.35 - 7.45 04/24/2012 Normal [facility] CHEMISTRY pO2 Art 65 80 - 100 04/24/2012 LOW [facility] CHEMISTRY pCO2 Art 45 35 - 45 04/24/2012 Normal [facility] HEMATOLOGY PT 15.9 12.0 - 14.7 04/24/2012 HI [facility] HEMATOLOGY INR 1.25 0.85 - 1.17 04/24/2012 HI <sup>10</sup>Interpretive Data: RECOMMENDED RANGES FOR PROTIME INR:
2.0-3.0 for most medical and surgical thromboembolic states.
2.5-3.5 for artificial heart valves and recurrent embolism.

INR SHOULD BE USED ONLY FOR PATIENTS ON STABLE ANTICOAGULANT THERAPY. [facility] CHEMISTRY eGFR 96 04/24/2012 NA <sup>3</sup>Result Comment: The eGFR is calculated using the CKD-EPI formula. In most young, healthy individuals the eGFR will be >90 mL/min/1.73m2. The eGFR declines with age. An eGFR of 60-89 may be normal in some populations, particularly the elderly, for whom the CKD-EPI formula has not been extensively validated. Use of the eGFR is not recommended in the following populations:& lt;br/>
Individuals with unstable creatinine concentrations, including patients [...] should be multiplied by the estimated BMI. [facility] CHEMISTRY Calcium Lvl 8.3 8.5 - 10.5 04/24/2012 LOW [facility] CHEMISTRY Potassium Lvl 4.7 3.5 - 5.1 04/24/2012 Normal [facility] CHEMISTRY CO2 28 24 - 32 04/24/2012 Normal [facility] CHEMISTRY Chloride Lvl 109 95 - 109 04/24/2012 Normal [facility] CHEMISTRY BUN 11 7 - 22 04/24/2012 Normal [facility] CHEMISTRY Glucose Lvl 143 70 - 99 04/24/2012 HI <sup>6</sup>Interpretive Data: Adult reference range values reflect the clinical guidelines
of the [place] [employer]. [facility] CHEMISTRY Creatinine Lvl 0.8 0.5 - 1.4 04/24/2012 Normal [facility] CHEMISTRY Sodium Lvl 141 135 - 145 04/24/2012 Normal [facility] CHEMISTRY AGAP 8.7 10.0 - 20.0 04/24/2012 LOW [facility] CHEMISTRY Magnesium Lvl 2.0 1.8 - 2.4 04/24/2012 Normal [facility] HEMATOLOGY Lymphocytes 6.3 20.0 - 40.0 04/24/2012 LOW [facility] HEMATOLOGY Segs 90.4 45.0 - 75.0 04/24/2012 [facility] HEMATOLOGY Eosinophils 0.0 0.0 - 4.0 04/24/2012 Normal [facility] HEMATOLOGY Monocytes 3.3 2.0 - 12.0 04/24/2012 Normal [facility] HEMATOLOGY Basophils # 0.0 0.0 - 0.2 04/24/2012 Normal [facility] HEMATOLOGY Lymphocytes # 1.0 1.0 - 5.5 04/24/2012 Normal [facility] HEMATOLOGY Segs-Bands # 14.7 1.5 - 8.1 04/24/2012 [facility] HEMATOLOGY Eosinophils # 0.0 0.0 - 0.5 04/24/2012 Normal [facility] HEMATOLOGY Monocytes # 0.5 0.0 - 0.8 04/24/2012 [facility] HEMATOLOGY Basophils 0.0 0.0 - 1.0 04/24/2012 [facility] HEMATOLOGY Hgb 10.5 12.0 - 16.0 04/24/2012 LOW [facility] HEMATOLOGY RBC 3.84 4.20 - 5.40 04/24/2012 [facility] HEMATOLOGY WBC 16.2 3.7 - 10.4 04/24/2012 [facility] HEMATOLOGY MCHC 33.9 32.0 - 36.0 04/24/2012 [facility] HEMATOLOGY MCH 27.3 27.0 - 31.0 04/24/2012 [facility] HEMATOLOGY RDW 15.9 11.5 - 14.5 04/24/2012 [facility] HEMATOLOGY MCV 80.7 81.0 - 99.0 04/24/2012 LOW [facility] HEMATOLOGY Hct 30.9 36.0 - 48.0 04/24/2012 L[facility] HEMATOLOGY Platelet 287 133 - 450 04/24/2012 Normal [facility] HEMATOLOGY MPV 8.8 7.4 - 10.4 04/24/2012 [facility] CHEMISTRY CK MB 0.7 0.5 - 3.6 04/23/2012 [facility] CHEMISTRY Total CK 60 12 - 191 04/23/2012 [facility] CHEMISTRY Troponin-I <0.02 0.00 - 0.40 04/23/2012 [facility] CHEMISTRY CK MB Index 1.2 0.0 - 2.5 04/23/2012 [facility] CHEMISTRY O2 Sat Art 95.2 95.0 - 100.0 04/23/2012 [facility] CHEMISTRY Site Art Right Ra (04/23/2012 04:20:00) 04/23/2012 [facility] CHEMISTRY Flow Art 2.0 04/23/2012 [facility] CHEMISTRY Allens Art Positive (04/23/2012 04:20:00) 04/23/2012 [facility] CHEMISTRY HCO3 Art 27 22 - 26 04/23/2012 [facility] CHEMISTRY BE Art 2 -2-2 - 2 04/23/2012 [facility] CHEMISTRY pO2 Art 72 80 - 100 04/23/2012 L[facility] CHEMISTRY Mode Art NC (04/23/2012 04:20:00) 04/23/2012 [facility] CHEMISTRY pH Art 7.42 7.35 - 7.45 04/23/2012 [facility] CHEMISTRY pCO2 Art 42 35 - 45 04/23/2012 Normal [facility] CHEMISTRY AGAP 11.1 10.0 - 20.0 04/23/2012 Normal [facility] CHEMISTRY eGFR 83 04/23/2012 NA <sup>4</sup>Result Comment: The eGFR is calculated using the CKD-EPI formula. In most young, healthy individuals the eGFR will be >90 mL/min/1.73m2. The eGFR declines with age. An eGFR of 60-89 may be normal in some populations, particularly the elderly, for whom the CKD-EPI formula has not been extensively validated. Use of the eGFR is not recommended in the following populations:& lt;br/>
Individuals with unstable creatinine concentrations, including patients [...] should be multiplied by the estimated BMI. [facility] CHEMISTRY Calcium Lvl 8.9 8.5 - 10.5 04/23/2012 Normal [facility] CHEMISTRY CO2 27 24 - 32 04/23/2012 Normal [facility] CHEMISTRY Potassium Lvl 4.1 3.5 - 5.1 04/23/2012 Normal [facility] CHEMISTRY Chloride Lvl 106 95 - 109 04/23/2012 Normal [facility] CHEMISTRY Sodium Lvl 140 135 - 145 04/23/2012 Normal [facility] CHEMISTRY Glucose Lvl 163 70 - 99 04/23/2012 HI <sup>7</sup>Interpretive Data: Adult reference range values reflect the clinical guidelines
of the [place] [employer]. [facility] CHEMISTRY Creatinine Lvl 0.9 0.5 - 1.4 04/23/2012 Normal [facility] CHEMISTRY BUN 8 7 - 22 04/23/2012 Normal [facility] HEMATOLOGY MCH 27.5 27.0 - 31.0 04/23/2012 Normal [facility] HEMATOLOGY MCV 79.5 81.0 - 99.0 04/23/2012 LOW [facility] HEMATOLOGY RDW 15.8 11.5 - 14.5 04/23/2012 HI [facility] HEMATOLOGY MPV 8.5 7.4 - 10.4 04/23/2012 Normal [facility] HEMATOLOGY Platelet 258 133 - 450 04/23/2012 Normal [facility] HEMATOLOGY Hct 30.7 36.0 - 48.0 04/23/2012 LOW [facility] HEMATOLOGY MCHC 34.5 32.0 - 36.0 04/23/2012 Normal [facility] HEMATOLOGY WBC 8.9 3.7 - 10.4 04/23/2012 Normal [facility] HEMATOLOGY RBC 3.86 4.20 - 5.40 04/23/2012 LOW [facility] HEMATOLOGY Hgb 10.6 12.0 - 16.0 04/23/2012 LOW [facility] HEMATOLOGY Segs-Bands # 8.2 1.5 - 8.1 04/23/2012 [facility] HEMATOLOGY Basophils # 0.0 0.0 - 0.2 04/23/2012 Normal [facility] HEMATOLOGY Eosinophils # 0.0 0.0 - 0.5 04/23/2012 Normal [facility] HEMATOLOGY Monocytes # 0.2 0.0 - 0.8 04/23/2012 Normal [facility] HEMATOLOGY Lymphocytes # 0.6 1.0 - 5.5 04/23/2012 LOW [facility] HEMATOLOGY Segs 91.5 45.0 - 75.0 04/23/2012 [facility] HEMATOLOGY Basophils 0.5 0.0 - 1.0 04/23/2012 Normal [facility] HEMATOLOGY Eosinophils 0.0 0.0 - 4.0 04/23/2012 Normal [facility] HEMATOLOGY Monocytes 1.7 2.0 - 12.0 04/23/2012 LOW [facility] HEMATOLOGY Lymphocytes 6.3 20.0 - 40.0 04/23/2012 LOW [facility] HEMATOLOGY PTT 44.2 22.9 - 35.8 04/23/2012 HI <sup>13</sup>Interpretive Data: Heparin Therapeutic Range: 57 - 92 Seconds [facility] HEMATOLOGY PT 14.5 12.0 - 14.7 04/23/2012 Normal [facility] HEMATOLOGY INR 1.11 0.85 - 1.17 04/23/2012 Normal <sup>11</sup>Interpretive Data: RECOMMENDED RANGES FOR PROTIME INR:
2.0-3.0 for most medical and surgical thromboembolic states.
2.5-3.5 for artificial heart valves and recurrent embolism.

INR SHOULD BE USED ONLY FOR PATIENTS ON STABLE ANTICOAGULANT THERAPY. [facility] Microbiology Gram Stain 04/22/2012 [facility] Microbiology Culture: Respiratory w/Gram Stain 04/22/2012 [facility] HEMATOLOGY D-Dimer 0.47 04/22/2012 NA <sup>12</sup>Interpretive Data: In DIC, quantitative D-Dimer is generally greater than
0.66 ug/mL FEU. Values of quantitative D-Dimer less than
0.40 ug/mL FEU have been reported to be associated with a low
probability of deep vein thrombosis/pulmonary embolism.
This test alone should not be used to rule out DVT/PE. [facility] BACTERIAL - SEROLOGY U S pneumo Ag Negative (04/22/2012 09:30:00) Negative 04/22/2012 Normal [facility] MICRO MISC - SEROLOGY U Legion Ag Negative 1 (04/22/2012 09:30:00) Negative 04/22/2012 Normal <sup>1</sup>Interpretive Data: This kit tests for Legionella pneumophila Serogroup 1 Antigen. [facility] Microbiology Culture: Urine 04/22/2012 [facility] CHEMISTRY Ferritin Lvl 58 5 - 204 04/22/2012 Normal [facility] CHEMISTRY Iron 34 30 - 160 04/22/2012 Normal [facility] Microbiology Culture: Blood 04/22/2012 [facility] Microbiology Culture: Blood 04/22/2012 [facility] CHEMISTRY Allens Art N/A (04/22/2012 07:38:00) 04/22/2012 Normal [facility] CHEMISTRY Mode Art Rm Air (04/22/2012 07:38:00) 04/22/2012 Normal [facility] CHEMISTRY pH Art 7.44 7.35 - 7.45 04/22/2012 Normal [facility] CHEMISTRY pCO2 Art 40 35 - 45 04/22/2012 Normal [facility] CHEMISTRY pO2 Art 60 80 - 100 04/22/2012 CRIT <sup>8</sup>Result Comment: Critical Result(s) called to at 04/22/2012 07:40:31 RACKMAN by Reece,CONNOR. Read back OK. [facility] CHEMISTRY HCO3 Art 26 22 - 26 04/22/2012 [facility] CHEMISTRY BE Art 2 -2-2 - 2 04/22/2012 Normal [facility] CHEMISTRY O2 Sat Art 92.9 95.0 - 100.0 04/22/2012 LOW [facility] CHEMISTRY Site Art Right Br (04/22/2012 07:38:00) 04/22/2012 Normal [facility] CHEMISTRY A/G Ratio 0.9 0.7 - 1.6 04/22/2012 Normal [facility] CHEMISTRY B/C Ratio 8 6 - 25 04/22/2012 Normal [facility] CHEMISTRY Globulin 3.8 2.0 - 4.0 04/22/2012 Normal [facility] CHEMISTRY AST 20 0 - 37 04/22/2012 Normal [facility] CHEMISTRY ALT 19 0 - 65 04/22/2012 Normal [facility] CHEMISTRY Albumin Lvl 3.3 3.5 - 5.0 04/22/2012 LOW [facility] CHEMISTRY Total Protein 7.1 6.4 - 8.4 04/22/2012 Normal [facility] CHEMISTRY Bili Total 0.2 0.2 - 1.3 04/22/2012 Normal [facility] CHEMISTRY Alk Phos 91 39 - 136 04/22/2012 Normal [facility] CHEMISTRY S Preg Negative *NA* (04/22/2012 02:15:00) Negative 04/22/2012 NA [facility] HEMATOLOGY Protein S Func 109 54 - 137 04/22/2012 Normal [facility] HEMATOLOGY Protein C Func 172 72 - 147 04/22/2012 HI [facility] HEMATOLOGY PTT 35.4 22.9 - 35.8 04/22/2012 Normal <sup>14</sup>Interpretive Data: Heparin Therapeutic Range: 57 - 92 Seconds [facility] Pathology Reports No Data Provided for This Section Diagnostic Reports Report Value Date Source Chest 1view DX Clinical Indication: Coughing - [...] of acute cardiopulmonary disease. SL: MARGARET 09/28/2018 [facility] 1view DX Clinical Indication:42 years Female with Coughing - persistent cough Comparison: Chest x-ray 07/28/2018 FINDINGS: Lines: None. The single frontal chest radiograph shows normal lung volumes. No interstitial or airspace opacities. No pleural effusion. No pneumothorax. Cardiac silhouette is normal. Pulmonary vasculature is normal. The trachea is midline. There are no acute osseous abnormalities noted. IMPRESSION: No acute cardiopulmonary abnormality. 07/31/2018 [facility] 1view DX Clinical Indication: Shortness of breath. Comparison: 03/03/2018 FINDINGS: AP view of the chest submitted for interpretation. Lungs are clear. Heart size is normal. Central pulmonary vasculature appears normal. No effusion. No pneumothorax. No radiographically apparent acute osseous abnormality. IMPRESSION: 1. No radiographically apparent acute cardiopulmonary process. SL: [id number] 07/27/2018 [facility] Chest Pulmonary Embolism CTA Clinical Indication: Shortness [...] due to mild tracheomalacia SL: [id number] 07/27/2018 [facility] ED Abdomen/Pelvis IV contrast only CT Clinical [...] bowel obstruction. Appendix within normal limits. SL: [id number] 03/16/2018 [facility] Chest 2 views DX EXAM: Chest 2 views DX DATE: 03/03/2018 10:11 AM CDT INDICATION: - cough COMPARISON: 02/10/2018. IMPRESSION: Stable cardiac silhouette and mediastinum. No focal consolidation, significant pleural effusion or pneumothorax. SL: [id number] 03/03/2018 [facility] Chest 2 views DX PROCEDURE: Chest, PA [...] an acute cardiopulmonary process. SL: [id number] 02/10/2018 [facility] Spine lumbar wo contrast MRI Spine lumbar [...] roots and moderate thecal sac stenosis. 11/18/2017 [facility] Chest Pulmonary Embolism CTA EXAM: CT CHEST [...] generated. IV contrast: 100 cc Omnipaque. Dose: JEN=760.95 mGy-cm FINDINGS: PULMONARY ARTERIES: No central or [...] abnormality. No pulmonary embolism. SL: [id number] 09/29/2017 [facility] Chest 1view DX EXAM: Chest 1view DX DATE: 09/29/2017 2:31 PM CDT INDICATION: - SOB COMPARISON: None. IMPRESSION: Stable cardiac silhouette and mediastinum. No focal consolidation, significant pleural effusion or pneumothorax. SL: [id number] 09/29/2017 [facility]ine thoracic 2 views DX THORACIC SPINE RADIOGRAPH 2 VIEWS INDICATION: Posttraumatic thoracic spine pain COMPARISON: None DISCUSSION: Vertebral body alignment is within normal limits. The disc spaces are maintained. The bones appear well mineralized. No acute compression or displaced fractures are identified. The paravertebral soft tissues are grossly unremarkable. IMPRESSION: Unremarkable radiographic appearance of the thoracic spine. SL:16 07/21/2017 [facility] lumbar 2 or 3 views DX [...] assessment. IMPRESSION: No fracture or subluxation SL: [id number] 07/21/2017 [facility] Spine cervical wo contrast CT EXAM: CT [...] or malalignment of the cervical spine. SL: [id number] 03/12/2017 [facility] Chest/Abdomen/Pelvis w IV contrast CT EXAM: CT [...] contrast: [address] Radiation Dose: GLD=6266.79 mGy-cm FINDINGS: CHEST LUNG PARENCHYMA AND PLEURA: [...] pneumonitis. 2. No acute osseous abnormality. SL: [id number] 03/12/2017 [facility] 1view DX Patient Name: JAROD MEYERS : 1975; Age: 41 years y/o Female MR: [id number] Study: Chest 1view DX 03/12/2017 3:41 PM [...] pulmonary infiltrates. Correlate clinically for pneumonia. SL: [id number] 03/12/2017 [facility] Pulmonary Embolism CTA PROCEDURE: CTA CHEST WITH [...] IMPRESSION: Negative. END REPORT SL: [id number] 11/05/2016 [facility] 1view DX Exam: Chest X-Ray Clinical Indication: Chest pain. Technique: Frontal view of the chest is provided. Findings: Heart and mediastinum are normal. Lungs are clear. There are no pleural effusions. Impression: No acute intrathoracic disease. 11/04/2016 [facility] Abdomen AP DX ABDOMEN SUPINE CLINICAL INDICATION: [...] supporting the clinical diagnosis of constipation. SL: [id number] 05/17/2016 [facility] Pulmonary Embolism CTA Clinical Indication: Epigastric pain in left chest pain radiating to left arm, history of PE, cough and fever; Comparison: CT of the chest 07/02/2012 TECHNIQUE: Sequential trans-axial images were obtained thru the chest and upper abdomen after administration of iodinated contrast. Coronal and sagittal reconstructions were obtained. 75 cc of Omnipaque 350 was used for the exam. Dose: XYM=233 mGy-cm FINDINGS: LUNG PARENCHYMA AND PLEURA: There [...] pulmonary arterial hypertension. 4. Mild splenomegaly SL: [id number] 05/13/2016 [facility] 1view DX CHEST, 1 VIEW HISTORY: Fever; chest pain COMPARISON: 04/19/2016 FINDINGS: The lungs are clear. No pleural effusion or pneumothorax. Heart size normal. No acute osseous abnormality. SL: [id number] 05/13/2016 [facility] 2 views DX Two-view chest x-ray compared to 07/17/2013. History: Chest pain Comments: The trachea is midline. The cardiomediastinal silhouette is normal in size. No pneumonia. No pleural effusions or pneumothorax. Impression: No acute cardiopulmonary disease. 04/19/2016 [facility] Spine cervical 2 or 3 view DX [...] for fracture or subluxation. SL: ELVIA 01/07/2016 [facility] ED Abdomen/Pelvis IV contrast only CT PROCEDURE: [...] its evaluation. Please correlate with urinalysis. SL: MISSAEL 12/20/2015 [facility] Thoracic wo contrast MRI NAME: JAROD MEYERS [...] or cord signal abnormality. SL: 24 02/17/2015 [facility] Outpatient Imaging [facility] Spine lumbar wo contrast MRI Name: JAROD [...] on the bilateral traversing nerve roots. SL: ROSALINA CHAPPELL 53 02/17/2015 [facility] Outpatient Imaging [facility] Spine cervical wo contrast MRI Name: JAROD [...] right cord. SL: ROSALINA CHAPPELL 53 02/17/2015 [facility] Outpatient Imaging [facility] Renal Stone CT Name: JAROD MEYERS : [...] ascites. IMPRESSION: Unremarkable renal stone CT. SL: 08/02/2013 [facility] Abdomen AP view Name: JAROD MEYERS : [...] Unremarkable supine view of the abdomen. SL: 07/28/2013 [facility] Outpatient Imaging [facility] Chest 1view Name: JAROD MEYERS : 1975 [...] IMPRESSION: 1. Mild pulmonary vascular congestion. SL: 07/17/2013 [facility] Consultation Notes No Data Provided for This Section Discharge Summaries No Data Provided for This Section History and Physicals No Data Provided for This Section Vital Signs Vital Sign Value Date Comments Source Heart Rate 85 09/29/2018 [facility] Temperature Oral (F) 98.3 F 09/29/2018 [facility] Resp[facility] Rate 20 09/29/2018 [facility] Systolic (mm Hg) 93 09/29/2018 [facility] Diastolic (mm Hg) 62 09/29/2018 [facility] Temperature Oral (F) 98.1 F 09/29/2018 [facility] Respitory Rate 20 09/29/2018 [facility] Heart Rate 87 09/29/2018 [facility] Systolic (mm Hg) 103 09/29/2018 [facility] Diastolic (mm Hg) 60 09/29/2018 [facility] Systolic (mm Hg) 126 09/29/2018 [facility] Diastolic (mm Hg) 81 09/29/2018 [facility] Temperature Oral (F) 100 F 09/29/2018 [facility] Respitory Rate 20 09/29/2018 [facility] Weight 143.182 09/28/2018 [facility] Height 175.26 cm 09/28/2018 [facility] BMI Calculated 46.61 09/28/2018 [facility] Heart Rate 118 09/28/2018 [facility] Heart Rate 74 08/02/2018 [facility] Temperature Oral (F) 98.5 F 08/02/2018 [facility] Systolic (mm Hg) 118 08/02/2018 [facility] Diastolic (mm Hg) 79 08/02/2018 [facility] Respitory Rate 18 08/02/2018 [facility] Temperature Oral (F) 97.7 F 08/02/2018 [facility] Systolic (mm Hg) 125 08/02/2018 [facility] Diastolic (mm Hg) 74 08/02/2018 [facility] Heart Rate 97 08/02/2018 [facility] Respitory Rate 18 08/02/2018 [facility] Heart Rate 75 08/02/2018 [facility] Systolic (mm Hg) 112 08/02/2018 [facility] Diastolic (mm Hg) 76 08/02/2018 [facility] Respitory Rate 18 08/02/2018 [facility] Temperature Oral (F) 98.2 F 08/02/2018 [facility] Weight 147.273 07/28/2018 [facility] Height 175.26 cm 07/28/2018 [facility] BMI Calculated 47.95 07/28/2018 [facility] Weight 147.273 07/28/2018 [facility] BMI Calculated 55.73 07/28/2018 [facility] Height 162.56 cm 07/28/2018 [facility] Systolic (mm Hg) 103 03/17/2018 [facility] Diastolic (mm Hg) 84 03/17/2018 [facility] Respitory Rate 25 03/17/2018 [facility] Temperature Oral (F) 98.5 F 03/17/2018 [facility] Systolic (mm Hg) 116 03/17/2018 [facility] Diastolic (mm Hg) 82 03/17/2018 [facility] Respitory Rate 21 03/17/2018 [facility] Systolic (mm Hg) 103 03/17/2018 [facility] Diastolic (mm Hg) 60 03/17/2018 [facility] Respitory Rate 17 03/17/2018 [facility] Weight 147.273 03/17/2018 [facility] Heart Rate 101 03/17/2018 [facility] Temperature Oral (F) 98.4 F 03/17/2018 [facility] Systolic (mm Hg) 115 03/03/2018 [facility] Diastolic (mm Hg) 77 03/03/2018 [facility] Respitory Rate 18 03/03/2018 [facility] Temperature Oral (F) 98.1 F 03/03/2018 [facility] Heart Rate 78 03/03/2018 [facility] Respitory Rate 16 03/03/2018 [facility] Heart Rate 84 03/03/2018 [facility] Temperature Oral (F) 98.1 F 03/03/2018 [facility] Systolic (mm Hg) 108 03/03/2018 [facility] Diastolic (mm Hg) 73 03/03/2018 [facility] Weight 147.273 03/03/2018 [facility] Height 175.26 cm 03/03/2018 [facility] BMI Calculated 47.95 03/03/2018 [facility] Temperature Oral (F) 98.4 F 03/03/2018 [facility] Respitory Rate 18 03/03/2018 [facility] Systolic (mm Hg) 133 03/03/2018 [facility] Diastolic (mm Hg) 91 03/03/2018 [facility] Heart Rate 106 03/03/2018 [facility] Systolic (mm Hg) 112 02/11/2018 [facility] Diastolic (mm Hg) 63 02/11/2018 [facility] Respitory Rate 17 02/11/2018 [facility] Systolic (mm Hg) 101 02/10/2018 [facility] Diastolic (mm Hg) 70 02/10/2018 [facility] Respitory Rate 18 02/10/2018 [facility] Temperature Oral (F) 97.9 F 02/10/2018 [facility] Heart Rate 94 02/10/2018 [facility] Weight 148.182 02/10/2018 [facility] Respitory Rate 22 02/10/2018 [facility] Systolic (mm Hg) 130 02/10/2018 [facility] Diastolic (mm Hg) 90 02/10/2018 [facility] Systolic (mm Hg) 121 09/29/2017 [facility] Diastolic (mm Hg) 83 09/29/2017 [facility] Respitory Rate 20 09/29/2017 [facility] Systolic (mm Hg) 114 09/29/2017 [facility] Diastolic (mm Hg) 88 09/29/2017 [facility] Respitory Rate 19 09/29/2017 [facility] Systolic (mm Hg) 137 09/29/2017 [facility] Diastolic (mm Hg) 81 09/29/2017 [facility] Weight 145.455 09/29/2017 [facility] Height 175.26 cm 09/29/2017 [facility] BMI Calculated 47.35 09/29/2017 [facility] Temperature Oral (F) 98.7 F 09/29/2017 [facility] Respitory Rate 20 09/29/2017 [facility] Heart Rate 103 09/29/2017 [facility] Temperature Oral (F) 97.9 F 08/18/2017 [facility] Weight 147.273 08/18/2017 [facility] Respitory Rate 22 08/18/2017 [facility] Systolic (mm Hg) 134 08/18/2017 [facility] Diastolic (mm Hg) 69 08/18/2017 [facility] Heart Rate 108 08/18/2017 [facility] Systolic (mm Hg) 110 07/22/2017 [facility] Diastolic (mm Hg) 70 07/22/2017 [facility] Respitory Rate 16 07/22/2017 [facility] Heart Rate 84 07/22/2017 [facility] Temperature Oral (F) 98.4 F 07/22/2017 [facility] Temperature Oral (F) 98.5 F 07/22/2017 [facility] Heart Rate 90 07/22/2017 [facility] Respitory Rate 16 07/22/2017 [facility] Systolic (mm Hg) 115 07/22/2017 [facility] Diastolic (mm Hg) 75 07/22/2017 [facility] Temperature Oral (F) 98.7 F 07/22/2017 [facility] Height 175.26 cm 07/22/2017 [facility] BMI Calculated 44.4 07/22/2017 [facility] Weight 136.364 07/22/2017 [facility] Respitory Rate 18 07/22/2017 [facility] Heart Rate 105 07/22/2017 [facility] Systolic (mm Hg) 111 07/22/2017 [facility] Diastolic (mm Hg) 73 07/22/2017 [facility] Temperature Oral (F) 98.0 F 03/15/2017 [facility] Heart Rate 97 03/15/2017 [facility] Respitory Rate 16 03/15/2017 [facility] Systolic (mm Hg) 124 03/15/2017 [facility] Diastolic (mm Hg) 79 03/15/2017 [facility] Respitory Rate 16 03/15/2017 [facility] Heart Rate 77 03/15/2017 [facility] Systolic (mm Hg) 116 03/15/2017 [facility] Diastolic (mm Hg) 77 03/15/2017 [facility] Respitory Rate 16 03/15/2017 [facility] Temperature Oral (F) 98.8 F 03/15/2017 [facility] Systolic (mm Hg) 118 03/15/2017 [facility] Diastolic (mm Hg) 65 03/15/2017 [facility] Temperature Oral (F) 99.3 F 03/15/2017 [facility] Heart Rate 94 03/15/2017 [facility] Weight 153.665 03/13/2017 [facility] BMI Calculated 50.03 03/13/2017 [facility] Height 175.26 cm 03/13/2017 [facility] Weight 125 03/12/2017 [facility] BMI Calculated 41.9 03/12/2017 [facility] Height 172.72 cm 03/12/2017 [facility] Systolic (mm Hg) 109 11/05/2016 [facility] Diastolic (mm Hg) 84 11/05/2016 [facility] Temperature Oral (F) 98.2 F 11/05/2016 [facility] Respitory Rate 16 11/05/2016 [facility] Weight 136.364 11/05/2016 [facility] Respitory Rate 18 11/05/2016 [facility] Heart Rate 115 11/05/2016 [facility] Temperature Oral (F) 98.4 F 11/05/2016 [facility] Systolic (mm Hg) 123 11/05/2016 [facility] Diastolic (mm Hg) 74 11/05/2016 [facility] Temperature Oral (F) 98.7 F 05/17/2016 [facility] Respitory Rate 18 05/17/2016 [facility] Systolic (mm Hg) 122 05/17/2016 [facility] Diastolic (mm Hg) 86 05/17/2016 [facility] Heart Rate 82 05/17/2016 [facility] Height 175.26 cm 05/17/2016 [facility] BMI Calculated 44.4 05/17/2016 [facility] Weight 136.364 05/17/2016 [facility] Temperature Oral (F) 98.8 F 05/17/2016 [facility] Heart Rate 102 05/17/2016 [facility] Systolic (mm Hg) 120 05/17/2016 [facility] Diastolic (mm Hg) 84 05/17/2016 [facility] Respitory Rate 20 05/17/2016 [facility] Temperature Oral (F) 98.3 F 05/13/2016 [facility] Respitory Rate 16 05/13/2016 [facility] Heart Rate 97 05/13/2016 [facility] Systolic (mm Hg) 107 05/13/2016 [facility] Diastolic (mm Hg) 56 05/13/2016 [facility] Respitory Rate 16 05/13/2016 [facility] Systolic (mm Hg) 101 05/13/2016 [facility] Diastolic (mm Hg) 70 05/13/2016 [facility] Heart Rate 103 05/13/2016 [facility] BMI Calculated 46.76 05/13/2016 [facility] Weight 143.636 05/13/2016 [facility] Height 175.26 cm 05/13/2016 [facility] Heart Rate 124 05/13/2016 [facility] Respitory Rate 19 05/13/2016 [facility] Temperature Oral (F) 99.3 F 05/13/2016 [facility] Systolic (mm Hg) 121 05/13/2016 [facility] Diastolic (mm Hg) 66 05/13/2016 [facility] Systolic (mm Hg) 122 04/20/2016 [facility] Diastolic (mm Hg) 75 04/20/2016 [facility] Respitory Rate 18 04/20/2016 [facility] Temperature Oral (F) 99.2 F 04/20/2016 [facility] Heart Rate 92 04/20/2016 [facility] Systolic (mm Hg) 110 04/20/2016 [facility] Diastolic (mm Hg) 69 04/20/2016 [facility] Respitory Rate 18 04/20/2016 [facility] Heart Rate 110 04/20/2016 [facility] Temperature Oral (F) 98 F 04/20/2016 [facility] Weight 140.909 04/20/2016 [facility] BMI Calculated 45.87 04/20/2016 [facility] Temperature Oral (F) 98.7 F 04/20/2016 [facility] Respitory Rate 18 04/20/2016 [facility] Systolic (mm Hg) 108 04/20/2016 [facility] Diastolic (mm Hg) 74 04/20/2016 [facility] Heart Rate 114 04/20/2016 [facility] Height 175.26 cm 04/20/2016 [facility] Systolic (mm Hg) 124 01/07/2016 [facility] Diastolic (mm Hg) 66 01/07/2016 [facility] Heart Rate 93 01/07/2016 [facility] Respitory Rate 18 01/07/2016 [facility] Temperature Oral (F) 98.4 F 01/07/2016 [facility] Respitory Rate 18 01/07/2016 [facility] Heart Rate 95 01/07/2016 [facility] Systolic (mm Hg) 130 01/07/2016 [facility] Diastolic (mm Hg) 70 01/07/2016 [facility] Respitory Rate 18 01/07/2016 [facility] Heart Rate 101 01/07/2016 [facility] Systolic (mm Hg) 100 01/07/2016 [facility] Diastolic (mm Hg) 59 01/07/2016 [facility] Weight 143.636 01/07/2016 [facility] Temperature Oral (F) 98.4 F 01/07/2016 [facility] BMI Calculated 48.15 01/07/2016 [facility] Height 172.72 cm 01/07/2016 [facility] Systolic (mm Hg) 126 12/20/2015 [facility] Diastolic (mm Hg) 72 12/20/2015 [facility] Temperature Oral (F) 98.2 F 12/20/2015 [facility] Heart Rate 85 12/20/2015 [facility] Respitory Rate 16 12/20/2015 [facility] Weight 140 12/20/2015 [facility] Height 172.72 cm 12/20/2015 [facility] Temperature Oral (F) 98.3 F 12/20/2015 [facility] BMI Calculated 46.93 12/20/2015 [facility] Heart Rate 105 12/20/2015 [facility] Respitory Rate 18 12/20/2015 [facility] Systolic (mm Hg) 125 12/20/2015 [facility] Diastolic (mm Hg) 77 12/20/2015 [facility] Temperature Oral (F) 98.2 F 06/22/2015 [facility] Respitory Rate 16 06/22/2015 [facility] Heart Rate 93 06/22/2015 [facility] Systolic (mm Hg) 126 06/22/2015 [facility] Diastolic (mm Hg) 87 06/22/2015 [facility] Weight 127.273 06/22/2015 [facility] Systolic (mm Hg) 137 06/22/2015 [facility] Diastolic (mm Hg) 84 06/22/2015 [facility] Respitory Rate 17 06/22/2015 [facility] Heart Rate 112 06/22/2015 [facility] Temperature Oral (F) 98.9 F 06/22/2015 [facility] Height 175.26 cm 06/22/2015 [facility] BMI Calculated 41.44 06/22/2015 [facility] Temperature Oral (F) 98.8 F 08/22/2014 [facility] Respitory Rate 20 08/22/2014 [facility] Heart Rate 85 08/22/2014 [facility] Systolic (mm [...] 122.727 08/21/2014 [facility] BMI Calculated 38.82 08/21/2014 [facility] Heart Rate 84 01/12/2014 [facility] Respitory Rate 18 01/12/2014 [facility] Systolic (mm Hg) 122 01/12/2014 [facility] Diastolic (mm Hg) 72 01/12/2014 [facility] Height 177.8 cm 01/12/2014 [facility] BMI Calculated 40.26 01/12/2014 [facility] Weight 127.273 01/12/2014 [facility] Systolic (mm Hg) 123 01/12/2014 [facility] Diastolic (mm Hg) 72 01/12/2014 [facility] Heart Rate 89 01/12/2014 [facility] Temperature Oral (F) 98.4 F 01/12/2014 [facility] Respitory Rate 18 01/12/2014 [facility] BMI Calculated [...] DC Date Status Source Not Sent Emergency [id number] AYLA SIDDIQUI 04/20/2012 04/20/2012 [facility]charged [facility] Not Sent Emergency [id number] FRANCK LANDA 04/20/2012 04/21/2012 [facility] Not Sent Inpatient [id number] VALARIE MCQUEEN II 04/22/2012 04/25/2012 [facility] Not Sent DS [id number] ROAS KHAN 04/28/2012 04/28/2012 [facility] Not [facility] Emergency [id number] SHERIF LARIOS 07/01/2012 07/02/2012 [facility]charged [facility] Not Sent Emergency [id number] FRANCK LANDA 07/17/2013 07/17/2013 Discharged [facility] [id number] _[id number] Gilbert Fneg 07/28/2013 07/29/2013 [facility] Not Sent Emergency [id number] STEPHAN TORRES 08/02/2013 08/02/2013 Discharged [facility] EC Emergency Center [id number] Brown Motley Jr 09/28/2013 09/28/2013 [facility] Emergency [facility] [id number] Brown Motley Jr 01/12/2014 01/12/2014 [facility] [id number] Alec Magana 08/21/2014 08/22/2014 [facility] [id number] Franck Landa 08/22/2014 08/22/2014 [facility] [id number] Melo Meier 02/07/2015 02/07/2015 [facility] [id number] Kevin Callahan 02/17/2015 02/18/2015 [facility] Outpatient Imaging [facility] EC Emergency Center [id number] Hamida eLonlam 06/22/2015 06/22/2015 [facility] EC Emergency Center [id number] Mani Marjerad 12/20/2015 12/20/2015 [facility] Emergency Center [id number] Carroll Fine 01/07/2016 01/07/2016 [facility] Recurring [id number] Luis Felipe Haddad 03/08/2016 04/07/2016 [facility] Emergency [id number] Smita Pate 04/20/2016 04/20/2016 [facility] Emergency [id number] Jorge Sandoval 05/13/2016 05/13/2016 [facility] Emergency [id number] Alda Burdick 05/17/2016 05/17/2016 [facility] Emergency [id number] Tyler Hillelan Felixon 11/05/2016 11/05/2016 [facility] Inpatient [id number] Cliftondestinee Phoenix 03/12/2017 03/15/2017 [facility] Emergency [id number] Franck Jane 07/22/2017 07/22/2017 [facility] Emergency [id number] Ortiz Jesus 08/18/2017 08/18/2017 [facility] Emergency [id number] Luba Crawford 09/29/2017 09/30/2017 [facility] [place] Out[facility] [id number] Messi Mendez 11/18/2017 11/19/2017 [facility] Emergency [id number] Ortiz Jesus 02/10/2018 02/11/2018 [facility] Emergency [id number] Ortiz Jesus 03/03/2018 03/03/2018 [facility] Emergency [id number] Irvin Rocha 03/17/2018 03/17/2018 [facility] Inpatient [id number] Brown Villeda Jr 07/28/2018 08/03/2018 [facility] Emergency [id number] Zbigniew Zepeda 09/28/2018 09/29/2018 [facility] Procedures Procedure Code Date Perfomer Comments Source section [id number] [facility] Outpatient Imaging [facility] ORIF - Open reduction and internal fixation of fracture<sup>1</sup> [id number] left ankle [facility], [facility] Outpatient Imaging [facility] Assessment and Plan Assessment and Plan Date Source Extracted from:Title: Pulmonary progress note Author: Zane Vences MD [...] BID 07/28/18 enoxaparin (Lovenox) 40 mg [id number] 08/01/18 furosemide (Lasix) 20 mg IVP Daily 07/28/18 montelukast (Singulair) 10 mg PO Bedtime Continuous Infusions: None Labs (Last four charted values) WBC H 11.4 (JUL 29) H 11.0 (JUL 28) Hgb 12.2 (JUL 29) 12.1 (JUL 28) Hct 37.1 (JUL 29) 38.1 (JUL 28) Plt 323 (JUL 29) 294 (JUL 28) Na 143 (AUG 01) 139 (JUL 29) 139 (JUL 28) K 4.4 (AUG 01) 4.1 (JUL 29) 3.5 (JUL 28) CO2 29 (AUG 01) L 22 (JUL 29) L 23 (FEB 18) Cl 104 (AUG 01) 109 (B ) H 110 (B 18) Cr 0.96 (AUG 01) 1.06 (JUL 29) 1.10 (JUL 28) BUN 18 (AUG 01) 11 (FE) 13 (JUL 18) Glucose Random H 152 (AUG 01) H 128 (JUL 29) H 118 (JUL 28) Mg 2.1 (JUL 29) Phos 3.1 (JUL 29) Ca 8.6 (AUG 01) 8.8 (JUL 29) L 8.2 (JUL 28) PT 12.6 (JUL 28) INR 0.96 (JUL 28) PTT 32.0 (JUL 28) Troponin <0.02 (JUL 28) <0.02 (JUL 28) <0.02 (JUL 28) Total CK 43 (JUL 28) Objective: I&O Record In Out Bal 08/02 24hr Tot 602 0 602 08/01 24hr Tot 726 7 720 Lines, Tubes, and Drains: 07/30/2018 22:00 Peripheral Lines: Forearm Right 22 gauge Over the needle catheter 08/02/2018 11:37 SpO2 percent 94 08/01/2018 19:09 Oxygen Therapy Mode Room air Vital Signs (last 24 hrs) Last Charted Temp Oral 97.7 DegF (AUG 02 11:37) Heart Rate Peripheral 97 bpm (AUG 02 11:37) Resp Rate 18 BRMIN (AUG 02 11:37) SBP 125 mmHg (AUG 02 11:37) DBP 74 mmHg (AUG 02 11:37) SpO2 94 % (AUG 02 11:37) Exam: General: not in any distress HEENT: [...] discharged Outpatient pulmonary follow-up Patient okay to [place] home with above recommendations. Zane Vences MD Pulmonary and Critical Care Extracted from:Title: History and Physical Author: Gladis Hurst MD Date: 07/28/18 Patient is a 42-year-old femalehypertension, past PE,presents with complaints of shortness of breathover the last 24-48 hours. 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 Duo nebs every 6,steroidsevery 12, advair and montelukast. Antitussives as needed for cough. Ordered: Admit/Condition, 07/28/18 3:11:00 [facility], Status: Out Patient with Observation Services, Telemetry Capable Location, Expected LOS: 1 Midnight, Brown Swain MD, Admit MD Review/Approve Yes, Isolation: No Isolation/Standard Precautions, Acute bronchitis with... Chronic back pain PT/ OT, [place], morphine for breakthrough pain Heparin 1 to 2 midnights 08/03/2018 [facility] Extracted from:Title: Discharge Summary * Author: Vilma Garibay MD Date: 03/15/17 Discharge Information Disposition to home Condition stable Medications: See med reconciliation form Diet: Heart healthy Discharge Plan Follow-up with your PCP in 2-5 days for posthospital follow-up In evaluating worsening symptoms patient was to come back to the ED for further evaluation Discharge summary took greater than 35 minutes Extracted from:Title: Clinical Document Author: Vilma Garibay MD Date: 03/14/17 Progress Note SUBJECTIVE: Patient was doing well with no other complaints. Patient seen and evaluated at bedside. No overnight events. Denies chest pain, nausea, vomiting, diarrhea, headache, lightheadness, abdomen pain or dizziness. OBJECTIVE: Vitals Tmp(F) Pulse BP RR SpO2 FIO2 03/14 15:03 97.6 85 137/93 19 99 --- 03/14 11:03 98.1 80 127/79 18 98 --- 03/14 10:31 ---- --- ----- 12 96 --- 03/14 07:24 97.9 84 125/86 19 95 --- 03/14 02:55 98.1 103 125/76 18 99 --- 24 Hr Tmax: 98.5F (36.94c) at 03/13 20:00 Vital Signs are the last 5 in the past 48 hours. I&O Record In Out Bal 03/14 24hr Tot 2844 0 2844 03/13 24hr Tot 6 0 2025 Labs (Last four charted values) WBC H 10.7 (MAR 14) H 13.5 (MAR 13) H 19.5 (MAR 12) Hgb L 11.1 (MAR 14) L 11.4 (MAR 13) 13.0 (MAR 12) Hct L 32.8 (MAR 14) L 33.8 (MAR 13) 39.1 (MAR 12) Plt 262 (MAR 14) 285 (MAR 13) 302 (MAR 12) Na 140 (MAR 13) 141 (MAR 12) 140 (MAR 12) K L 3.3 (MAR 13) 3.9 (MAR 12) 3.9 (MAR 12) CO2 25 (MAR 13) 26 (MAR 12) 25 (MAR 12) Cl 104 (MAR 13) 107 (MAR 12) 106 (MAR 12) Cr 0.83 (MAR 13) 0.91 (MAR 12) 0.94 (MAR 12) BUN 11 (MAR 13) 11 (MAR 12) 11 (MAR 12) Glucose Random H 139 (MAR 13) H 102 (MAR 12) H 102 (MAR 12) Ca L 8.0 (MAR 13) 8.7 (MAR 12) 8.9 (MAR 12) PT 13.1 (MAR 12) INR 0.97 (MAR 12) PTT 28.5 (MAR 12) Medications (16) Active Scheduled: (8) albuterol-ipratropium [...] cultures no growth to date 2. Possible UTIurine culture pending, IV antibiotic 03/14: Urine cultures no growth to date, continue IV antibiotics 3. History of COPDneb treatments, IV antibiotic 03/14: respiratory status improved 4. Morbidly obeseexercise and diet plan discussed with patient 5. Prophylaxis: Lovenox, Pepcid 6. [id number] IV fluids, heart healthy diet Deposition: Inpatient Discharge planning: Plan to discharge home tomorrow if patient better. Extracted from:Title: General Admission H&P * Author: Russell Bui MD Date: 03/12/17 Impression and Plan -Systemic inflammatory response syndrome from multifocal pneumonia, likely gram- negative organism Continue Zosyn and pharmacy dosing vancomycin Follow cultures -Acute on chronic back pain Likely worsened by UTI Continue antibiotics as mentioned above and pain control with as needed [place] and morphine -Asthma and COPD Acute on chronic, worsened by pneumonia Scheduled nebulization treatments and antibiotics as mentioned above -Tobacco abuse Counseled Patient working on quitting -Morbid obesity Counseled DVT prophylaxis; heparin Disposition: Expect around 2 midnight stay 03/15/2017 [facility] Plan of Care No Data Provided for This Section Social History Social History Date Source Social History TypeResponse Substance Abuse Use: Current. Type: Marijuana. Recreational [...] 09/28/18 1smoking cessation education given, verbalized understanding 07/28/2018 [facility] Social History TypeResponse Alcohol Current, Type Liquor. Frequency: 1-2 times [...] 09/29/17 1smoking cessation education given, verbalized understanding 03/13/2017 [facility] Social History TypeResponse Alcohol Current, Type Liquor. Frequency: 1-2 times [...] Days Yes; Reg Smoking Cessation Counseling No 06/12/2013 [facility] Outpatient [place] [facility] Social History TypeResponse Alcohol Current, Type Liquor. Frequency: 1-2 times [...] Days Yes; Reg Smoking Cessation Counseling No 06/12/2013 [facility] Family History No Data Provided for This Section Advance Directives No Data Provided for This Section Functional Status No Data Provided for This Section
--- NOTE | 2019-02-11 20:11 | NUR ---
RT CALLED AND NOTIFIED FOR STAT BREATHING [place].
[2019-02-11] MEDS ORDERED: IPRATROPIUM BROMIDE 0.02% 2.5 ML NEB NEB ONE (20:15)
[2019-02-11] MEDS ORDERED: METHYLPREDNISOLONE SOD SUCC 125 MG/2ML VIAL IV ONE (20:15)
[2019-02-11] MEDS ORDERED: ALBUTEROL SULF 0.083% NEB SOLN 3 ML NEB ONE ×2 (20:28→22:17)
[2019-02-11] MEDS ORDERED: IPRATROPIUM BROMIDE 0.02% 2.5 ML NEB ONE ×2 (20:28→22:16)
--- NOTE | 2019-02-11 21:00 | Diagnostic Imaging Report ---
Examination: Single AP view of the chest. COMPARISON: November 24, 2018 INDICATION: Dyspnea DISCUSSION: Lines/tubes: None. Lungs: The lungs are well inflated and clear. No pneumonia or pulmonary edema. Pleura: No pleural effusion or pneumothorax. Heart and mediastinum: The heart and the mediastinum are unremarkable. Bones and soft tissues: No acute bony abnormalities. IMPRESSION: 1. No acute cardiopulmonary abnormalities. Signed by: Dr. Allan Ruffin M.D. on 02/11/2019 8:56 PM
[2019-02-11 21:21] LABS: BASOPHILS # (AUTO) 0.1 (0.0-0.1); BASOPHILS % 0.5 % (0.0-1.0); EOSINOPHILS # (AUTO) 0.2 (0.0-0.4); EOSINOPHILS % 1.2 % (0.0-6.0); HEMOGLOBIN 12.4 g/dL (12.0-16.0); LYMPHOCYTES # (AUTO) 2.9 (1.0-3.2); MEAN CORPUSCULAR HEMOGLOBIN 25.5 pg (28-32); MEAN CORPUSCULAR HGB CONC 31.8 g/dL (31-35); MEAN CORPUSCULAR VOLUME 80.1 fL (81-99); MONOCYTES # (AUTO) 0.9 (0.2-0.8); MONOCYTES % 5.2 % (4.4-11.3); NEUTROPHILS % 75.6 % (38.7-80.0); PLATELET COUNT 413 x10e3/uL (140-360); RED BLOOD COUNT 4.87 x10e6/uL (3.6-5.1); RED CELL DISTRIBUTION WIDTH 14.6 % (11.7-14.4)
[2019-02-11] MEDS ORDERED: HYDROCODONE/APAP 10MG-325MG TAB PO ONE (21:30)
[2019-02-11 21:38] LABS: ALANINE AMINOTRANSFERASE 13 IU/L (0-55); ALBUMIN 3.6 g/dL (3.5-5.0); ALBUMIN/GLOBULIN RATIO 0.9 (0.8-2.0); ALKALINE PHOSPHATASE 114 IU/L (40-150); ANION GAP 13.7 mmol/L (8-16); BLOOD UREA NITROGEN 11 mg/dL (7-26); BUN/CREATININE RATIO 13 (6-25); CALCIUM 9.5 mg/dL (8.4-10.2); CARBON DIOXIDE 22 mmol/L (22-29); CHLORIDE 106 mmol/L (98-107); CREATINE KINASE 27 IU/L (29-168); CREATININE, SERUM 0.84 mg/dL (0.57-1.11); EST GLOMERULAR FILTRATION RATE > 60 ML/MIN (60-); GLUCOSE 103 mg/dL (74-118); POTASSIUM 3.7 mmol/L (3.5-5.1); SODIUM 138 mmol/L (136-145)
[2019-02-11] MEDS ORDERED: ALBUTEROL SULF 0.083% NEB SOLN 3 ML NEB NEB STA (22:06)
--- NOTE | 2019-02-11 22:11 | NUR ---
RT NOTIFIED FOR BREATHING [place].
[2019-02-11 23:12] VITALS: BP 125/83
== END 2019-02-11 23:23 | disposition home or self-care (01) ==
LOC: ER 20:02
DX: R06.00 Dyspnea, unspecified (principal); R05 Cough; J44.1 Chronic obstructive pulmonary disease with (acute) exacerbation; J20.9 Acute bronchitis, unspecified; M54.9 Dorsalgia, unspecified; G89.29 Other chronic pain; F17.210 Nicotine dependence, cigarettes, uncomplicated
CPT/HCPCS: 36415; 71045; 80053; 82550; 82553; 82948; 84484; 85025; 93005; 99284; J2930

== ENCOUNTER 2019-02-13 14:52 | Emergency (ER) | payer MEDICARE ==
--- OUTSIDE RECORDS SUMMARY | 2019-02-13 14:59 | XMS REPORT | Continuity of Care Document ---
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 Valium 10 mg, Route: PO, ONCE, Dosing Weight 136.364, kg, Priority: STAT, Start date: 07/21/17 21:54:00 [employer], Stop date: 07/21/17 21:54:00 [employer] Inactive 07/22/2017 [facility] Ketorolac 60 mg, Route: IM, Drug form: INJ, ONCE, Dosing Weight 136.364, kg, Priority: STAT, Start date: 07/21/17 21:54:00 [employer], Stop date: 07/21/17 21:54:00 [employer] Inactive 07/22/2017 [facility] Levofloxacin 750 MG Oral Tablet [Levaquin] 750 mg=1 tab, PO, Q24H, X 10 day, # 10 tab, 0 Refill(s) Active 03/15/2017 [facility] benzonatate 100 mg oral capsule 100 mg=1 cap, PO, TID, PRN Cough, # 20 cap, 0 Refill(s) Active 03/15/2017 [facility] Docusate Sodium 100 MG Oral Capsule [Colace] 200 mg, 2 cap, Route: PO, Drug form: CAP, ONCE, Dosing Weight 153.665, kg, Start date: 03/15/17 10:55:00 CDT, Stop date: 03/15/17 10:55:00 CDTNotes: (Same as: Colace) (Do Not Crush) Inactive 03/15/2017 [facility] magnesium citrate 58.2 MG/ML Oral Solution 300 ml, Route: PO, Drug Form: LIQ, Dosing Weight 153.665, kg, ONCE, Start date: 03/15/17 10:55:00 CDT, Stop date: 03/15/17 10:55:00 CDTNotes: (Same as: Citrate of Magnesia) Concentration: 1.745 gm / 30 mL Inactive 03/15/2017 [facility] remove patch Route: TOP, Bedtime, Drug form: ERFILM, Start date: 03/14/17 21:00:00 CDT, Duration: 30 day, Stop date: 04/12/17 21:00:00 CDTNotes: Remove patch 12 hours after application each day. No Longer Active 03/15/2017 [facility] Lidocaine 0.05 MG/MG Transdermal Patch 1 patch, Route: TOP, Daily, Drug form: FILM, Start date: 03/14/17 11:00:00 CDT, Duration: 30 day, Stop date: 04/13/17 9:00:00 CDT No Longer Active 03/14/2017 [facility] WAIT for vancomycin trough draw prior to giving next dose WAIT for vancomycin trough draw prior to giving next dose, reminder, Drug form: MISC, Route: MISC, ONCE, 03/14/17 7:30:00 CDT, Stop date: 03/14/17 7:30:00 CDT Inactive 03/14/2017 [facility] WAIT for vancomycin trough draw prior to giving next dose WAIT for vancomycin trough draw prior to giving next dose, reminder, Drug form: MISC, Route: MISC, ONCE, 03/14/17 5:30:00 CDT, Stop date: 03/14/17 5:30:00 CDT Inactive 03/14/2017 [facility] Lovenox 40 mg, 0.4 mL, Route: SUB-Q, Drug form: INJ, Daily, Dosing Weight 153.665, kg, Start date: 03/13/17 17:00:00 CDT, Duration: 30 day, Stop date: 04/11/17 17:00:00 CDTNotes: (Same as: Lovenox) No Longer Active 03/13/2017 [facility] potassium chloride 20 mEq oral tablet, extended release 40 mEq, 2 tab, Route: PO, Drug form: ERTAB, ONCE, Dosing Weight 153.665, kg, Start date: 03/13/17 16:35:00 CDT, Stop date: 03/13/17 16:35:00 CDTNotes: (Same as: K-Dur 20) "Do Not Crush" With food and full glass of water Inactive 03/13/2017 [facility] Docusate 100 mg, 1 cap, Route: PO, Drug form: CAP, BID, Dosing Weight 125, kg, Start date: 03/13/17 9:00:00 CDT, Duration: 30 day, Stop date: 04/11/17 17:00:00 CDTNotes: (Same as: Colace) (Do Not Crush) No Longer Active 03/13/2017 [facility] budesonide-formoterol 160 mcg-4.5 mcg/inh inhalation aerosol with adapter 2 inhalation, Route: INHALATION, Drug Form: AERO/A, BID, Start date: 03/13/17 9:00:00 CDT, Duration: 30 day, Stop date: 04/11/17 17:00:00 CDTNotes: (Same as: Symbicort) WASTE: Aerosol - Return to Pharmacy No Longer Active 03/13/2017 [facility] Advair Diskus 500 mcg-50 mcg inhalation powder 1 puff, Route: INHALATION, Drug Form: AERO, Dosing Weight 125, kg, BID, Start date: 03/13/17 9:00:00 CDT, Duration: 30 day, Stop date: 04/11/17 17:00:00 CDT No Longer Active 03/13/2017 [facility] pneumococcal capsular polysaccharide type 1 vaccine / pneumococcal capsular polysaccharide type 10A vaccine / pneumococcal capsular polysaccharide type 11A vaccine / pneumococcal capsular polysaccharide type 12F vaccine / pneumococcal capsular polysacchar 0.5 mL, Route: IM, Drug Form: INJ, Daily, Start date: 03/13/17 9:00:00 CDT, Duration: 1 doses or times, Stop date: 03/13/17 9:00:00 CDTNotes: (Same as: Pneumovax 23) Refrigerate Inactive 03/13/2017 [facility] vancomycin 1.25 gm, 250 mL, Route: IVPB, Drug form: INJ, ABXQ8H, Start date: 03/13/17 5:00:00 CDT, Duration: 30 day, Stop date: 04/12/17 0:00:00 CDT, ABX Indication: PneumoniaNotes: TIME CRITICAL MEDICATION Same as: Vancocin-NS (premixed) Infusion rate 2001 mg: infuse over 2.5 hours No Longer Active 03/13/2017 [facility] Albuterol 0.833 MG/ML / Ipratropium [place] 0.167 MG/ML Inhalant Solution [DuoNeb] 3 mL, Route: NEB, Drug Form: SOLN, Dosing Weight 125, kg, RQ6H, Start date: 03/13/17 2:00:00 CDT, Duration: 30 day, Stop date: 04/11/17 20:00:00 CDTNotes: (Same as: Duoneb) No Longer Active 03/13/2017 [facility] Zosyn 3.375 gm, Route: IVPB, ABXQ8H, Dosing Weight 125, kg, Start date: 03/13/17 2:00:00 CDT, Duration: 5 day, Stop date: 03/17/17 18:00:00 CDT, ABX Indication: PneumoniaNotes: (Same as: Zosyn) Dosing based on Piperacillin component MEDICATION WASTE Product Size: 3375 mg Product Wasted: ___ mg No Longer Active 03/13/2017 [facility] heparin 7,500 unit, 1.5 mL, Route: SUB-Q, Drug form: INJ, Q8H, Dosing Weight 125, kg, Consider for obese patients, Start date: 03/13/17 0:00:00 CDT, Duration: 30 day, Stop date: 04/11/17 16:00:00 CDTNotes: porcine heparin Inactive 03/13/2017 [facility] Benadryl 25 mg, 0.5 mL, Route: IV, Drug form: INJ, Q6H, Dosing Weight 153.665, kg, PRN as needed for allergy symptoms, Start date: 03/12/17 23:37:00 CDT, Duration: 30 day, Stop date: 04/11/17 23:36:00 CDTNotes: (Same as: Benadryl) No Longer Active 03/13/2017 [facility] Singulair 10 mg, 1 tab, Route: PO, Drug form: TAB, Bedtime, Dosing Weight 125, kg, Start date: 03/12/17 21:00:00 CDT, Duration: 30 day, Stop date: 04/10/17 21:00:00 CDTNotes: (Same as:Singulair) No Longer Active 03/13/2017 [facility] Vancomycin 1 ea, Route: MISC, ONCALL, Dosing Weight 125, kg, Start date: 03/12/17 21:00:00 CDT, day, Stop date: 03/12/17 21:00:00 CDT, Pharmacy to dose, ABX Indication: Pneumonia Inactive 03/13/2017 [facility] vancomycin 1.5 gm, 250 mL, Route: IVPB, Drug form: INJ, ONCE, Start date: 03/12/17 21:00:00 CDT, Stop date: 03/12/17 21:00:00 CDT, ABX Indication: PneumoniaNotes: TIME CRITICAL MEDICATION Same as: Vancocin-NS (pre mixed) Infusion rate 2001 mg: infuse over 2.5 hours Inactive 03/13/2017 [facility] Trazodone 50 mg, 1 tab, Route: PO, Drug form: TAB, Bedtime, Dosing Weight 153.665, kg, PRN Insomnia, Start date: 03/12/17 20:33:00 CDT, Duration: 30 day, Stop date: 04/11/17 20:32:00 CDTNotes: (Same As: Desyrel) No Longer Active 03/13/2017 [facility] Tessalon Perles 100 mg, 1 cap, Route: PO, Drug form: CAP, TID, Dosing Weight 153.665, kg, PRN Cough, Start date: 03/12/17 20:32:00 CDT, Duration: 30 day, Stop date: 04/11/17 20:31:00 CDTNotes: (Same As: Tessalon Per les) "Do Not Crush" No Longer Active 03/13/2017 [facility] senna 8.6 mg oral tablet 8.6 mg, 1 tab, Route: PO, Drug Form: TAB, Dosing Weight 153.665, kg, BID, PRN Constipation, Start date: 03/12/17 20:32:00 CDT, Duration: 30 day, Stop date: 04/11/17 20:31:00 CDTNotes: (Same as: Senokot) No Longer Active 03/13/2017 [facility] Acetaminophen 325 MG / Hydrocodone Bitartrate 10 MG Oral Tablet [[place] 10/325] 1 tab, Route: PO, Drug Form: TAB, Dosing Weight 125, kg, Q6H, PRN Pain Score 4-6, Start date: 03/12/17 20:30:00 CDT, Duration: 30 day, Stop date: 04/11/17 20:29:00 CDTNotes: Do not exceed 4gm/day of acetaminophen. (Same as: [place] 325/10) No Longer Active 03/13/2017 [facility] Morphine 2 mg, 1 mL, Route: IVP, Drug form: SOLN, Q4H, Dosing Weight 125, kg, PRN Pain Score 7-10, Start date: 03/12/17 20:29:00 CDT, Duration: 30 day, Stop date: 04/11/17 20:28:00 CDT No Longer Active 03/13/2017 [facility] Ondansetron 4 mg, 2 mL, Route: IVP, Drug form: INJ, Q6H, Dosing Weight 125, kg, PRN Nausea & Vomiting, Start date: 03/12/17 20:29:00 CDT, Duration: 30 day, Stop date: 04/11/17 20:28:00 CDTNotes: (Same as: [place]) MEDICATION WASTE Product Size: 4 mg Product Wasted: ___ mg No Longer Active 03/13/2017 [facility] Acetaminophen 650 mg, 2 tab, Route: PO, Drug form: TAB, Q4H, Dosing Weight 125, kg, PRN Pain 1-3/Temp > 100.4 F, Start date: 03/12/17 20:29:00 CDT, Duration: 30 day, Stop date: 04/11/17 20:28:00 CDTNotes: Do not e xceed 4 gm/day. (Same as: Tylenol) No Longer Active 03/13/2017 [facility] Acetaminophen 325 MG / Hydrocodone Bitartrate 5 MG Oral Tablet 1 tab, Route: PO, Dosing Weight 125, kg, Q4H, PRN Pain Score 4-6, Start date: 03/12/17 20:29:00 CDT, Duration: 30 day, Stop date: 04/11/17 20:28:00 CDT Inactive 03/13/2017 [facility] Advair Diskus 500 mcg-50 mcg inhalation powder 1 puff, INHALATION, BID, 0 Refill(s) Active 03/13/2017 [facility] ibuprofen 800 mg oral tablet 800 mg=1 tab, PO, BID, PRN Pain Score 1-5, 0 Refill(s) Active 03/13/2017 [facility] naproxen sodium 550 mg oral tablet 550 mg=1 tab, PO, Daily, 0 Refill(s) Active 03/13/2017 [facility] Sodium Chloride 0.9% (Bolus) IV 1,000 mL, 1000 ml/hr, Infuse Over: 1 hr, Route: IV, 1,000, Drug form: INJ, ONCE, Priority: STAT, Dosing Weight 125 kg, Start date: 03/12/17 18:52:00 CDT, Duration: 1 doses or times, Stop date: 03/12/17 18:52:00 CDT Inactive 03/12/2017 [facility] Vancomycin 1,000 mg, Route: IVPB, ONCE, Dosing Weight 125, kg, Priority: STAT, Start date: 03/12/17 17:25:00 CDT, Duration: 1 doses or times, Stop date: 03/12/17 17:25:00 CDT, ABX Indication: BacteremiaNotes: TIME CRITICAL MEDICATION (Same As: Vancocin) Infusion rate 2001 mg: infuse over 2.5 hours MEDICATION WASTE Product Size: 1000 mg Product Wasted: ___ mg Inactive 03/12/2017 [facility] Piperacillin / tazobactam 3.375 gm, Route: IVPB, ONCE, Dosing Weight 125, kg, Priority: STAT, Start date: 03/12/17 17:25:00 CDT, Duration: 1 doses or times, Stop date: 03/12/17 17:25:00 CDT, ABX Indication: BacteremiaNotes: (Same as: Zosyn) Dosing based on Piperacillin component MEDICATION WASTE Product Size: 3375 mg Product Wasted: ___ mg Inactive 03/12/2017 [facility] Ondansetron 4 mg, 2 mL, Route: IVP, Drug form: INJ, ONCE, Dosing Weight 125, kg, Priority: STAT, Start date: 03/12/17 15:57:00 CDT, Stop date: 03/12/17 15:57:00 CDTNotes: (Same as: Zofran) MEDICATION WASTE Product Size: 4 mg Product Wasted: ___ mg Inactive 03/12/2017 [facility] Morphine 4 mg, 1 mL, Route: IVP, Drug form: SOLN, ONCE, Dosing Weight 125, kg, Priority: STAT, Start date: 03/12/17 15:57:00 CDT, Stop date: 03/12/17 15:57:00 CDTNotes: (Same as:MORPhine Sulfate) Inactive 03/12/2017 [facility] Acetaminophen 300 MG / Codeine Phosphate 30 MG Oral Tablet [Tylenol with Codeine #3] 1 - 2 tab, PO, Q6H, PRN Pain, X 4 day, # 20 tab, 0 Refill(s) Active 11/05/2016 [facility] Morphine 4 mg, 1 mL, Route: IVP, Drug form: SOLN, ONCE, Dosing Weight 136.364, kg, Priority: STAT, Start date: 11/04/16 22:50:00 CDT, Stop date: 11/04/16 22:50:00 CDTNotes: (Same as:MORPhine Sulfate) No Longer Active 11/05/2016 [facility] Saline Flush 0.9% 10 mL, Route: IVP, Drug Form: INJ, Dosing Weight 136.364, kg, PRN, PRN Line Flush, Start date: 11/04/16 22:36:00 CDT, Duration: 30 day, Stop date: 12/04/16 22:35:00 CDTNotes: (Same as: BD Posiflush) No Longer Active 11/05/2016 [facility] Ketorolac Tromethamine 10 MG Oral Tablet 10 mg=1 tab, PO, Q6H, PRN Pain Score 6-10, X 3 day, # 12 tab, 0 Refill(s) Active 05/17/2016 [facility] Ketorolac 15 mg, Route: IVP, Drug form: INJ, ONCE, Dosing Weight 136.364, kg, Priority: STAT, Start date: 05/17/16 3:24:00 [employer], Stop date: 05/17/16 3:24:00 [employer] Inactive 05/17/2016 [facility] Acetaminophen 300 MG / Codeine Phosphate 30 MG Oral Tablet [Tylenol with Codeine #3] 1 - 2 tab, PO, Q6H, PRN Pain, X 4 day, # 32 tab, 0 Refill(s) Active 05/13/2016 [facility] Motrin 800 mg, Route: PO, Drug form: TAB, ONCE, Dosing Weight 143.636, kg, Priority: STAT, Start date: 05/13/16 13:14:00 [employer], Stop date: 05/13/16 13:14:00 [employer] Inactive 05/13/2016 [facility] Morphine 4 mg, Route: IVP, ONCE, Dosing Weight 143.636, kg, Priority: STAT, Start date: 05/13/16 11:32:00 [employer], Stop date: 05/13/16 11:32:00 [employer] Inactive 05/13/2016 [facility] Morphine 4 mg, Route: IVP, ONCE, Dosing Weight 143.636, kg, Priority: STAT, Start date: 05/13/16 10:06:00 [employer], Stop date: 05/13/16 10:06:00 [employer] Inactive 05/13/2016 [facility] Zofran 4 mg, Route: IVP, Drug form: INJ, ONCE, Dosing Weight 143.636, kg, Priority: STAT, Start date: 05/13/16 10:06:00 [employer], Stop date: 05/13/16 10:06:00 [employer] Inactive 05/13/2016 [facility] Tylenol 1,000 mg, 2 tab, Route: PO, Drug form: TAB, ONCE, Dosing Weight 143.636, kg, Start date: 05/13/16 9:13:00 [employer], Stop date: 05/13/16 9:13:00 CSTNotes: Max acetaminophen 4000 mg/day (4 gm/day). (Same as: Tylenol Extra Strength) Inactive 05/13/2016 [facility] Lactated Ringers 1,000 mL 1,000 mL, Rate: 999 ml/hr, Infuse over: 1 hr, Route: IV, Dosing Weight 143.636 kg, Total Volume: 1,000, Start date: 05/13/16 9:12:00 [employer], Duration: 1 hr, Stop date: 05/13/16 10:11:00 [employer] Inactive 05/13/2016 [facility] Levofloxacin 750 mg, 150 mL, Route: IVPB, Drug form: SOLN, ONCE, Dosing Weight 143.636, kg, Priority: STAT, Start date: 05/13/16 9:11:00 [employer], Stop date: 05/13/16 9:11:00 CSTNotes: (Same as:Levaquin) Inactive 05/13/2016 [facility] Saline Flush 0.9% 10 mL, Route: IVP, Drug Form: INJ, Dosing Weight 143.636, kg, PRN, PRN Line Flush, Start date: 05/13/16 9:11:00 [employer], Duration: 30 day, Stop date: 06/12/16 9:10:00 CSTNotes: (Same as: BD Posiflush) Inactive 05/13/2016 [facility] Acetaminophen 300 MG / Codeine Phosphate 60 MG Oral Tablet [Tylenol with Codeine #4] 1 tab, PO, Q4H, PRN Pain, X 7 day, # 12 tab, 0 Refill(s) Active 04/20/2016 [facility] amoxicillin 500 mg oral tablet 500 mg=1 tab, PO, TID, X 10 day, # 30 tab, 0 Refill(s) Active 04/20/2016 [facility] Acetaminophen 325 MG / Hydrocodone Bitartrate 10 MG Oral Tablet [[place] 10/325] 1 tab, Route: PO, Drug Form: TAB, Dosing Weight 140.909, kg, ONCE, STAT, Start date: 04/19/16 21:59:00 [employer], Stop date: 04/19/16 21:59:00 CSTNotes: Do not exceed 4gm/day of acetaminophen. (Same as: [place] 325/10) Inactive 04/20/2016 [facility] Sodium Chloride 0.154 MEQ/ML Injectable Solution 1,000 mL, 1,000 ml/hr, Infuse Over: 1 hr, Route: IV, 1,000, Drug form: INJ, ONCE, Priority: STAT, Dosing Weight 140.909 kg, Start date: 04/19/16 21:59:00 [employer], Duration: 1 doses or times, Stop date: 04/19/16 21:59:00 [employer] Inactive 04/20/2016 [facility] Ondansetron 4 MG Disintegrating Tablet [Zofran] 4 mg=1 tab, PO, Q8H, PRN as needed for nausea/vomiting, X 3 day, # 12 tab, 0 Refill(s) Active 01/07/2016 [facility] Acetaminophen 300 MG / butalbital 50 MG / Caffeine 40 MG Oral Capsule [Fioricet] 1 cap, PO, Q4H, PRN PRN Headache, Do not exceed 6 capsules in 24 hours, X 5 day, # 30 cap, 0 Refill(s) Active 01/07/2016 [facility] Sodium Chloride 0.154 MEQ/ML Injectable Solution 1,000 mL, 1,000 ml/hr, Infuse Over: 1 hr, Route: IV, ONCE, Priority: STAT, Dosing Weight 143.636 kg, Start date: 01/07/16 2:32:00 CDT, Duration: 1 doses or times, Stop date: 01/07/16 2:32:00 CDT Inactive 01/07/2016 [facility] Metoclopramide 10 mg, Route: IVP, Drug form: INJ, ONCE, Dosing Weight 143.636, kg, Priority: STAT, Start date: 01/07/16 2:32:00 CDT, Stop date: 01/07/16 2:32:00 CDT Inactive 01/07/2016 [facility] Diphenhydramine 25 mg, Route: IVP, ONCE, Dosing Weight 143.636, kg, Priority: STAT, Start date: 01/07/16 2:32:00 CDT, Stop date: 01/07/16 2:32:00 CDT Inactive 01/07/2016 [facility] Sodium Chloride 0.154 MEQ/ML Injectable Solution 1,000 mL, 1,000 ml/hr, Infuse Over: 1 hr, Route: IV, 1,000, Drug form: INJ, ONCE, Priority: STAT, Dosing Weight 140 kg, Start date: 12/20/15 2:16:00 CDT, Duration: 1 doses or times, Stop date: 12/20/15 2:16:00 CDT Inactive 12/20/2015 [facility] Sulfamethoxazole 800 MG / Trimethoprim 160 MG Oral Tablet [Bactrim] 1 tab, PO, BID, X 10 day, # 20 tab, 0 Refill(s) Active 06/22/2015 [facility] Morphine 4 mg, Route: IM, Drug form: INJ, ONCE, Dosing Weight 127.273, kg, Priority: STAT, Start date: 06/22/15 9:53:00, Stop date: 06/22/15 9:53:00 Inactive 06/22/2015 [facility] Ibuprofen 800 MG Oral Tablet [Motrin] 800 mg=1 tab, PO, Q8H, Pain, Take with food, # 15 tab, 0 Refill(s)Special Instructions: Take with food Active 08/22/2014 [facility] Cyclobenzaprine hydrochloride 10 MG Oral Tablet [Flexeril] 10 mg=1 tab, PO, BID, # 6 tab, 0 Refill(s) Active 08/22/2014 [facility] Flexeril 10 mg, 1 tab, Route: PO, Drug form: TAB, ONCE, Dosing Weight 122.727, kg, Priority: STAT, Start date: 08/22/14 12:01:00, Stop date: 08/22/14 12:01:00Notes: (Same As: Flexeril) Inactive 08/22/2014 [facility] Acetaminophen 325 MG / Hydrocodone Bitartrate 5 MG Oral Tablet [[place] 5/325] 1 tab, Route: PO, Drug Form: TAB, Dosing Weight 122.727, kg, ONCE, STAT, Start date: 08/22/14 12:01:00, Stop date: 08/22/14 12:01:00Notes: (Same as: [place] 325/5) Do not exceed 4gm/day of acetaminophen. Inactive 08/22/2014 [facility] cyclobenzaprine 10 mg oral tablet 10 mg=1 tab, PO, TID, for spasm, # 30 tab, 0 Refill(s) Active 01/12/2014 [facility] ibuprofen 800 mg oral tablet 800 mg=1 tab, PO, Q8H, Pain, Take with food, # 30 tab, 0 Refill(s)Special Instructions: Take with food Active 01/12/2014 [facility] Motrin 800 mg, Route: PO, Drug form: TAB, ONCE, Dosing Weight 127.273, kg, Priority: STAT, Start date: 01/12/14 9:36:00, Stop date: 01/12/14 9:36:00 Inactive 01/12/2014 [facility] Flexeril 10 mg, Route: PO, ONCE, Dosing Weight 127.273, kg, Priority: STAT, Start date: 01/12/14 8:12:00, Stop date: 01/12/14 8:12:00 Inactive 01/12/2014 [facility] Motrin 800 mg, Route: PO, Drug form: TAB, ONCE, Dosing Weight 127.273, kg, Priority: STAT, Start date: 01/12/14 8:12:00, Stop date: 01/12/14 8:12:00 Inactive 01/12/2014 [facility] albuterol 0.083% inhalation solution 2.49 mg=3 mL, NEB, Q6H, # 120 ea, 0 Refill(s) Active s 07/17/2013 [facility] predniSONE 20 mg oral tablet 40 mg=2 tab, PO, Daily, # 8 tab, 0 Refill(s) Active 07/17/2013 [facility] Tylenol with Codeine 120 mg-12 mg/5 mL oral liquid 15 mL, PO, TID, pain, # 120 mL, 0 Refill(s) Active s 07/17/2013 [facility] Azithromycin 5 Day Dose Pack 250 mg oral tablet 250 mg, PO, Daily, Take 2 tablets by mouth the first day then 1 tablet by mouth days 2- 5, # 6 tab, 0 Refill(s)Take 2 tablets by mouth the first day then 1 tablet by mouth days 2-5 Active s 07/17/2013 [facility] Saline Flush 0.9% 5 mL, Route: IVP, Drug Form: INJ, Dosing Weight 140.909, kg, PRN, PRN Line Flush, Start date: 07/17/13 11:07:00, Duration: 1 day, Stop date: 07/18/13 11:06:00(Same as: BD Posiflush) Inactive s 07/17/2013 [facility] methylPREDNISolone SODium SUCCinate 125 mg, Route: IVP, ONCE, Dosing Weight 140.909, kg, Priority: STAT, Start date: 07/17/13 11:07:00, Stop date: 07/17/13 11:07:00 Inactive s 07/17/2013 [facility] DuoNeb inhalation solution 3 ml, Route: INHALATION, Drug Form: SOLN, Dosing Weight 140.909, kg, PRN, PRN Respiratory Protocol, Start date: 07/17/13 10:54:00, Duration: 1 doses or times, Stop date: Limited # of times(Same as: Duoneb) Inactive s 07/17/2013 [facility] [place] 5/325 oral tablet 1 tab, PO, Q4H, PRN, 20 tab, for pain, Substitution Allowed, Maintenance, TAB PO Active Larios 07/02/2012 [facility] clindamycin 150 mg oral capsule 150 mg, 1 cap, PO, Q6H, 20 cap, Substitution Allowed, CAP PO Active Alden 07/02/2012 [facility] Saline Flush 0.9% 5 mL, Route: IVP, Drug Form: INJ, Dosing Weight 136.364, kg, Q8H, PRN Line Flush, Start date: 07/01/12 22:10:00, Duration: 30 day, Stop date: 07/31/12 22:09:00, Administer at least once every 8 hoursAdminister at least once every 8 hours IVP No Longer Active [place] 07/02/2012 [facility] Demerol HCl 50 mg, 1 mL, Route: IM, Drug form: INJ, ONCE, Dosing Weight 136.364, kg, Start date: 04/28/12 16:20:00, Stop date: 04/28/12 16:20:00 IM No Longer Active [place] 04/28/2012 [facility] Dilaudid 0.5 mg, 0.25 mL, Route: IVP, Drug form: INJ, ONCE, Dosing Weight 136.364, kg, Start date: 04/28/12 15:37:00, Stop date: 04/28/12 15:37:00 IVP Active [place] 04/28/2012 [facility] acetaminophen 1,000 mg, 100 mL, Route: IVPB, Drug form: INJ, ONCE, Dosing Weight 136.364, kg, Start date: 04/28/12 15:29:00, Stop date: 04/28/12 15:29:00 IVPB Active 04/28/2012 [facility] Sublimaze 50 microgram, Route: IRRIG, ONCE, Dosing Weight 136.364, kg, Start date: 04/28/12 15:29:00, Stop date: 04/28/12 15:29:00 IRRIG No Longer Active Sandie 04/28/2012 [facility] cefazolin + Sodium Chloride 0.9% IV 100 mL 1 gm, Route: IVPB, PRE OP, Start date: 04/28/12 13:00:00, Duration: 12 hr, Stop date: 04/29/12 0:59:00 IVPB No Longer Active Federico 04/28/2012 [facility] lidocaine 0.1 mL, Route: IV, Drug form: INJ, ONCALL, Start date: 04/28/12 9:00:00, Duration: 12 hr, Stop date: 04/28/12 20:59:00 IV No Longer Active [place] 04/28/2012 [facility] Lactated Ringers Injection IV 1,000 mL 1,000 mL, Rate: 100 ml/hr, Infuse over: 10 hr, Route: IV, kg, Total Volume: 1,000, Start date: 04/28/12 9:00:00, Duration: 12 hr, Stop date: 04/28/12 20:59:00 IV No Longer Active [place] 04/28/2012 [facility] predniSONE 40 mg, 2 tab, Route: PO, Drug form: TAB, Daily, Start date: 04/26/12 9:00:00, Duration: 30 day, Stop date: 05/25/12 9:00:00 PO No Longer Active [employer] 04/26/2012 [facility] Singulair 10 mg, 1 tab, Route: PO, Drug form: TAB, Daily, Start date: 04/25/12 21:00:00, Duration: 30 day, Stop date: 05/24/12 21:00:00 PO No Longer Active [employer] 04/26/2012 [facility] acetaminophen-oxycodone 325 mg-10 mg oral tablet 1 tab, Route: PO, Drug Form: TAB, Q4H, PRN Other -See Comment, Start date: 04/25/12 10:35:00, Duration: 30 day, Stop date: 05/25/12 10:34:00 PO No Longer Active Eunice 04/25/2012 [facility] Lovenox 40 mg, 0.4 mL, Route: SUB-Q, Drug form: INJ, Daily, Start date: 04/25/12 9:00:00, Duration: 30 day, Stop date: 05/24/12 9:00:00 SUB-Q No Longer Active [employer] 04/25/2012 [facility] Ambien 5 mg, 1 tab, Route: PO, Drug form: TAB, Bedtime, PRN Sleep, Start date: 04/24/12 20:36:00, Duration: 30 day, Stop date: 05/24/12 20:35:00 PO No Longer Active [employer] 04/25/2012 [facility] Protonix 40 mg, 1 tab, Route: PO, Drug form: ECTAB, BID- Before Meals, Start date: 04/23/12 16:30:00, Duration: 30 day, Stop date: 05/23/12 7:30:00 PO No Longer Active Latasha 04/23/2012 [facility] Esgic 2 tab, Route: PO, Drug Form: TAB, ONCE, Start date: 04/23/12 12:00:00, Stop date: 04/23/12 12:00:00 PO No Longer Active [employer] 04/23/2012 [facility] ferrous sulfate 325 mg, 1 tab, Route: PO, Drug form: TAB, BID, Start date: 04/23/12 12:00:00, Duration: 30 day, Stop date: 05/23/12 9:00:00 PO No Longer Active [employer] 04/23/2012 [facility] Sodium Chloride 0.9% IV 1,000 mL 1,000 mL, Rate: 125 ml/hr, Infuse over: 8 hr, Route: IV, kg, Total Volume: 1,000, Start date: 04/23/12 12:00:00, Duration: 30 day, Stop date: 05/23/12 11:59:00 IV No Longer Active [employer] 04/23/2012 [facility] multivitamin 1 tab, Route: PO, Drug Form: TAB, BID, Start date: 04/23/12 12:00:00, Duration: 3 doses or times, Stop date: 04/24/12 17:00:00 PO No Longer Active [employer] 04/23/2012 [facility] docusate sodium 100 mg oral capsule 100 mg, 1 cap, Route: PO, Drug form: CAP, BID, PRN Constipation, Start date: 04/23/12 11:14:00, Duration: 30 day, Stop date: 05/23/12 11:13:00 PO No Longer Active [employer] [facility]: PO, Drug Form: TAB, Q6H, PRN Pain, Start date: 04/23/12 11:13:00, Duration: 30 day, Stop date: 05/23/12 11:12:00 PO No Longer Active [employer] 04/23/2012 [facility] Esgic 1 tab, Route: PO, Drug Form: TAB, Q6H, PRN Pain, Start date: 04/23/12 11:12:00, Duration: 30 day, Stop date: 05/23/12 11:11:00 PO No Longer Active [place] 04/23/2012 [facility] methylPREDNISolone 60 mg, 0.96 mL, Route: IV, Drug form: INJ, Q8H, Start date: 04/23/12 9:00:00, Duration: 3 doses or times, Stop date: 04/24/12 1:00:00 IV No Longer Active Lili 04/23/2012 [facility] fluticasone-salmeterol 250 mcg-50 mcg MDI 1 inhalation, Route: INHALER, Drug Form: AERO, RBID, Start date: 04/22/12 20:00:00, Duration: 30 day, Stop date: 05/22/12 8:00:00 INHALER No Longer Active Lili 04/23/2012 [facility] Lovenox 140 mg, 0.93 mL, Route: SUB-Q, Drug form: INJ, [id number], Start date: 04/22/12 17:00:00, Duration: 30 day, Stop date: 05/22/12 5:00:00 SUB-Q No Longer Active [employer] 04/22/2012 [facility] methylPREDNISolone 40 mg, 1 mL, Route: IV, Drug form: INJ, Q8H, Start date: 04/22/12 16:00:00, Duration: 30 day, Stop date: 05/22/12 8:00:00 IV No Longer Active [facility] 04/22/2012 [facility] Zithromax IVPB, 166.67 ml/hr, [id number], Start date: 04/22/12 14:00:00, Duration: 30, 250 ml IVPB No Longer Active [facility] 04/22/2012 [facility] Rocephin + Sodium Chloride 0.9% IV 100 mL 1 gm, Route: IVPB, [id number], Start date: 04/22/12 13:00:00, Duration: 30 day, Stop date: 05/21/12 13:00:00 IVPB No Longer Active [facility] 04/22/2012 [facility] DuoNeb inhalation solution 3 mL, Route: NEB, Drug Form: SOLN, [id number], Start date: 04/22/12 11:00:00, Duration: 30 day, Stop date: 05/22/12 7:00:00 NEB No Longer Active [employer] 04/22/2012 [facility] K-Dur 10 30 mEq, 3 tab, Route: PO, Drug form: ERTAB, Q1H, Start date: 04/22/12 9:00:00, Duration: 2 doses or times, Stop date: 04/22/12 10:00:00 PO No Longer Active [employer] 04/22/2012 [facility] Levaquin 750 mg, 150 mL, Route: IV, Drug form: SOLN, [id number], Start date: 04/22/12 9:00:00, Duration: 30 day, Stop date: 05/21/12 9:00:00 IV No Longer Active Lili 04/22/2012 [facility] Coumadin 7.5 mg, 1 tab, Route: PO, Drug form: TAB, Q5PM, Start date: 04/22/12 9:00:00, Duration: 30 day, Stop date: 05/21/12 17:00:00 PO No Longer Active [employer] 04/22/2012 [facility] Protonix 40 mg, 1 tab, Route: PO, Drug form: ECTAB, Before Dinner, Start date: 04/22/12 9:00:00, Duration: 30 day, Stop date: 05/21/12 16:30:00 PO No Longer Active [employer] 04/22/2012 [facility] lidocaine-prilocaine topical 1 appl, Route: TOP, ONCALL, Drug form: CRM, Start date: 04/22/12 9:00:00, Duration: 2 day, Stop date: 04/24/12 8:59:00 TOP No Longer Active [employer] 04/22/2012 [facility] Tessalon Perles 200 mg, 2 cap, Route: PO, Drug form: CAP, Q8H-06, Start date: 04/22/12 9:00:00, Duration: 30 day, Stop date: 05/22/12 6:00:00 PO No Longer Active [employer] 04/22/2012 [facility] methylPREDNISolone 100 mg, 1.6 mL, Route: IV, Drug form: INJ, Q8H, Start date: 04/22/12 9:00:00, Duration: 3 doses or times, Stop date: 04/23/12 1:00:00 IV No Longer Active Lili 04/22/2012 [facility] Zofran 4 mg, 2 mL, Route: IVP, Drug form: INJ, Q6H, PRN Nausea, Priority: STAT, Start date: 04/22/12 8:46:00, Duration: 30 day, Stop date: 05/22/12 8:45:00 IVP No Longer Active [employer] 04/22/2012 [facility] acetaminophen-hydrocodone 325 mg-10 mg oral tablet 1 tab, Route: PO, Drug Form: TAB, Q6H, PRN Pain, Start date: 04/22/12 8:46:00, Duration: 30 day, Stop date: 05/22/12 8:45:00 PO No Longer Active [employer] 04/22/2012 [facility] tramadol 50 mg oral tablet 100 mg, 2 tab, Route: PO, Drug form: TAB, Q6H, PRN Pain, Start date: 04/22/12 8:46:00, Duration: 30 day, Stop date: 05/22/12 8:45:00 PO No Longer Active [employer] 04/22/2012 [facility] morphine Sulfate 2 mg, 1 mL, Route: IV, Drug form: INJ, Q4H, PRN Pain, Start date: 04/22/12 8:45:00, Duration: 30 day, Stop date: 05/22/12 8:44:00 IV No Longer Active [employer] 04/22/2012 [facility] Xanax 0.5 mg, 1 tab, Route: PO, Drug form: TAB, QID, PRN Anxiety, Start date: 04/22/12 8:38:00, Duration: 30 day, Stop date: 05/22/12 8:37:00 PO No Longer Active [employer] 04/22/2012 [facility] codeine-guaifenesin 10 mL, Route: PO, Drug Form: LIQ, Q6H, PRN Cough, Start date: 04/22/12 8:36:00, Duration: 30 day, Stop date: 05/22/12 8:35:00 PO No Longer Active [employer] 04/22/2012 [facility] Sodium Chloride 0.45% IV 1,000 mL 1,000 mL, Rate: 100 ml/hr, Infuse over: 10 hr, Route: IV, kg, Total Volume: 1,000, Start date: 04/22/12 8:36:00, Duration: 15 hr, Stop date: 04/22/12 23:35:00 IV No Longer Active [employer] 04/22/2012 [facility] DuoNeb inhalation solution 3 mL, Route: NEB, Drug Form: SOLN, PRN, PRN Wheezing, Start date: 04/22/12 8:32:00, Duration: 30 day, Stop date: 05/22/12 8:31:00 NEB No Longer Active [employer] 04/22/2012 [facility] morphine Sulfate 2 mg, Route: IVP, ONCE, Dosing Weight 136.364, kg, Priority: STAT, Start date: 04/22/12 7:40:00, Stop date: 04/22/12 7:40:00 IVP No Longer Active [employer] 04/22/2012 [facility] Dilaudid 1 mg, 1 mL, Route: IV, Drug form: INJ, ONCE, Dosing Weight 136.364, kg, Start date: 04/22/12 5:37:00, Stop date: 04/22/12 5:37:00 IV No Longer Active [place] 04/22/2012 [facility] Lovenox 130 mg, 0.87 mL, Route: SUB-Q, Drug form: INJ, ONCE, Dosing Weight 136.364, kg, Priority: STAT, Start date: 04/22/12 5:16:00, Stop date: 04/22/12 5:16:00 SUB-Q No Longer Active [place] 04/22/2012 [facility] acetaminophen 1,000 mg, 2 tab, Route: PO, Drug form: TAB, ONCE, Dosing Weight 136.364, kg, Start date: 04/22/12 1:43:00, Stop date: 04/22/12 1:43:00 PO No Longer Active [place] 04/22/2012 [facility] DuoNeb inhalation solution 3 mL, Route: INHALATION, Drug Form: SOLN, Dosing Weight 136.364, kg, Q15Min, PRN Wheezing, Start date: 04/22/12 1:42:00, Duration: 3 doses or times, Stop date: Limited # of times INHALATION No Longer Active [place] 04/22/2012 [facility] predniSONE 60 mg, 3 tab, Route: PO, Drug form: TAB, ONCE, Dosing Weight 136.364, kg, Priority: STAT, Start date: 04/22/12 1:40:00, Stop date: 04/22/12 1:40:00 PO No Longer Active [place] 04/22/2012 [facility] Colace 100 mg oral capsule 100 mg, 1 cap, PO, BID, PRN, 20 cap, Constipation, Substitution Allowed, CAP PO Active Teja 04/21/2012 [facility] [place] 10/325 oral tablet 1-2 tab, PO, Q4-6H, PRN, 30 tab, Pain, Substitution Allowed, Maintenance PO Active Teja 04/21/2012 [facility] hydromorphone 2 mg, 1 mL, Route: IM, Drug form: INJ, ONCE, Dosing Weight 136.364, kg, Priority: STAT, Start date: 04/21/12 0:11:00, Stop date: 04/21/12 0:11:00 IM No Longer Active Teja 04/21/2012 [facility] [place] 10/325 oral tablet 1 tab, PO, Q4H, PRN, 24 tab, for pain, Substitution Allowed, Maintenance PO Active Siddiqui 04/20/2012 [facility] Versed 4 mg, 4 mL, Route: IVP, Drug form: SOLN, ONCE, Dosing Weight 136.364, kg, Priority: STAT, Start date: 04/20/12 1:21:00, Stop date: 04/20/12 1:21:00 IVP No Longer Active Siddiqui 04/20/2012 [facility] Dilaudid 1 mg, 1 mL, Route: IV, Drug form: INJ, ONCE, Dosing Weight 136.364, kg, Start date: 04/20/12 1:21:00, Stop date: 04/20/12 1:21:00 IV No Longer Active Siddiqui 04/20/2012 [facility] Zofran 4 mg, 2 mL, Route: IVP, Drug form: INJ, ONCE, Dosing Weight 136.364, kg, Priority: STAT, Start date: 04/20/12 1:01:00, Stop date: 04/20/12 1:01:00 IVP No Longer Active Siddiqui 04/20/2012 [facility] morphine Sulfate 6 mg, 0.6 mL, Route: IVP, Drug form: INJ, ONCE, Dosing Weight 136.364, kg, Start date: 04/20/12 1:01:00, Stop date: 04/20/12 1:01:00 IVP No Longer Active Siddiqui 04/20/2012 [facility] Allergies, Adverse Reactions, Alerts Substance Category Reaction Severity Reaction type Status Date Reported Comments Source No Known Medication Allergies Assertion Drug allergy [facility] HYDROcodone Assertion Drug allergy Active [facility] Immunizations Immunization Date Given Site Status Last Updated Comments Source pneumococcal 23-valent vaccine 03/13/2017 Not Given [facility] Results Order Name Results Value Reference Range Date Interpretation Comments Source HEMATOLOGY D-Dimer <0.27 09/29/2018 [facility] CARDIAC ENZYMES BNP 11 <=100 pg/mL 09/29/2018 [facility] CARDIAC ENZYMES Troponin-I <0.02 0.00 - 0.40 09/29/2018 [facility] CHEM PANEL eGFR 78 09/29/2018 Result Comment: [...] should be multiplied by the estimated BMI. [facility] CHEM PANEL Glucose Lvl 93 70 - 99 09/29/2018 [facility] CHEM PANEL CO2 25 24 - 32 09/29/2018 [facility] CHEM PANEL Chloride Lvl 110 95 - 109 09/29/2018 [facility] CHEM PANEL Potassium Lvl 3.9 3.5 - 5.1 09/29/2018 [facility] CHEM PANEL Sodium Lvl 141 135 - 145 09/29/2018 [facility] CHEM PANEL Creatinine Lvl 0.92 0.50 - 1.40 09/29/2018 [facility] CHEM PANEL BUN 13 7 - 22 09/29/2018 [facility] CHEM PANEL Calcium Lvl 8.7 8.5 - 10.5 09/29/2018 [facility] CHEM PANEL AGAP 9.9 10.0 - 20.0 09/29/2018 [facility] HEMATOLOGY Eosinophils # 0.3 0.0 - 0.5 09/29/2018 [facility] HEMATOLOGY Lymphocytes # 1.8 1.0 - 5.5 09/29/2018 [facility] HEMATOLOGY Basophils # 0.1 0.0 - 0.2 09/29/2018 [facility] HEMATOLOGY Monocytes # 0.5 0.0 - 0.8 09/29/2018 [facility] HEMATOLOGY Segs 77.8 45.0 - 75.0 09/29/2018 [facility] Basophils 0.6 0.0 - 1.0 09/29/2018 [facility] Lymphocytes 14.9 20.0 - 40.0 09/29/2018 [facility] Monocytes 3.9 2.0 - 12.0 09/29/2018 [facility] Neutrophils # 9.3 1.5 - 8.1 09/29/2018 [facility] Eosinophils 2.8 0.0 - 4.0 09/29/2018 [facility] MPV 8.0 7.4 - 10.4 09/29/2018 [facility] MCHC 32.1 32.0 - 36.0 09/29/2018 [facility] RDW 16.5 11.5 - 14.5 09/29/2018 [facility] Platelet 298 133 - 450 09/29/2018 [facility] Hgb 12.2 12.0 - 16.0 09/29/2018 [facility] Hct 38.0 36.0 - 48.0 09/29/2018 [facility] MCV 79.3 80.0 - 98.0 09/29/2018 [facility] MCH 25.4 27.0 - 31.0 09/29/2018 [facility] RBC 4.79 4.20 - 5.40 09/29/2018 [facility] WBC 12.0 3.7 - 10.4 09/29/2018 [facility] CARDIAC ENZYMES BNP 41 <=100 pg/mL 08/01/2018 [facility] ELECTROLYTES AGAP 14.4 10.0 - 20.0 08/01/2018 [facility] ELECTROLYTES eGFR 73 08/01/2018 Result Comment: The [...] should be multiplied by the estimated BMI. [facility] ELECTROLYTES Sodium Lvl 143 135 - 145 08/01/2018 [facility] ELECTROLYTES Creatinine Lvl 0.96 0.50 - 1.40 08/01/2018 [facility] ELECTROLYTES CO2 29 24 - 32 08/01/2018 [facility] ELECTROLYTES Potassium Lvl 4.4 3.5 - 5.1 08/01/2018 [facility] ELECTROLYTES Calcium Lvl 8.6 8.5 - 10.5 08/01/2018 [facility] ELECTROLYTES Chloride Lvl 104 95 - 109 08/01/2018 [facility] ELECTROLYTES Glucose Lvl 152 70 - 99 08/01/2018 [facility] ELECTROLYTES BUN 18 7 - 22 08/01/2018 [facility] LIPIDS LDL (Calculated) 77 <=99 mg/dL 07/30/2018 [facility] CHD Risk 3.58 3.90 - 5.80 07/30/2018 [facility] HDL 36 >=61 mg/dL 07/30/2018 [facility] Trig 81 <=149 mg/dL 07/30/2018 [facility] LIPIDS Chol 129 <=199 mg/dL 07/30/2018 [facility] LIPIDS VLDL 16 07/30/2018 [facility] CHEM PANEL Phosphorus 3.1 2.5 - 4.5 07/29/2018 [facility] CHEM PANEL eGFR 65 07/29/2018 Result Comment: [...] should be multiplied by the estimated BMI. [facility] CHEM PANEL Glucose Lvl 128 70 - 99 07/29/2018 [facility] CHEM PANEL Creatinine Lvl 1.06 0.50 - 1.40 07/29/2018 [facility] CHEM PANEL BUN 11 7 - 22 07/29/2018 [facility] CHEM PANEL Total Protein 7.8 6.4 - 8.4 07/29/2018 [facility] CHEM PANEL Albumin Lvl 3.4 3.5 - 5.0 07/29/2018 [facility] CHEM PANEL Potassium Lvl 4.1 3.5 - 5.1 07/29/2018 [facility] CHEM PANEL Calcium Lvl 8.8 8.5 - 10.5 07/29/2018 [facility] CHEM PANEL CO2 22 24 - 32 07/29/2018 [facility] CHEM PANEL Chloride Lvl 109 95 - 109 07/29/2018 [facility] CHEM PANEL Sodium Lvl 139 135 - 145 07/29/2018 [facility] CHEM PANEL ALT 20 0 - 65 07/29/2018 [facility] CHEM PANEL AST 16 0 - 37 07/29/2018 [facility] CHEM PANEL Bili Total 0.1 0.2 - 1.3 07/29/2018 [facility] CHEM PANEL Alk Phos 100 39 - 136 07/29/2018 [facility] CHEM PANEL B/C Ratio 10 6 - 25 07/29/2018 [facility] CHEM PANEL AGAP 12.1 10.0 - 20.0 07/29/2018 [facility] CHEM PANEL A/G Ratio 0.8 0.7 - 1.6 07/29/2018 [facility] CHEM PANEL Globulin 4.4 2.7 - 4.2 07/29/2018 [facility] CHEM PANEL Magnesium Lvl 2.1 1.8 - 2.4 07/29/2018 [facility] HEMATOLOGY RDW 16.3 11.5 - 14.5 07/29/2018 [facility] HEMATOLOGY Platelet 323 133 - 450 07/29/2018 [facility] HEMATOLOGY MPV 8.8 7.4 - 10.4 07/29/2018 [facility] HEMATOLOGY MCHC 32.9 32.0 - 36.0 07/29/2018 [facility] HEMATOLOGY RBC 4.78 4.20 - 5.40 07/29/2018 [facility] HEMATOLOGY WBC 11.4 3.7 - 10.4 07/29/2018 [facility] HEMATOLOGY MCH 25.5 27.0 - 31.0 07/29/2018 [facility] MCV 77.6 80.0 - 98.0 07/29/2018 [facility] Hct 37.1 36.0 - 48.0 07/29/2018 [facility] Hgb 12.2 12.0 - 16.0 07/29/2018 [facility] Neutrophils # 10.2 1.5 - 8.1 07/29/2018 [facility] Basophils 0.1 0.0 - 1.0 07/29/2018 [facility] Microcyte 1+ *ABN* (07/29/18 2:00 AM) None Seen 07/29/2018 [facility] Monocytes # 0.5 0.0 - 0.8 07/29/2018 [facility] Lymphocytes # 0.7 1.0 - 5.5 07/29/2018 [facility] Segs 89.4 45.0 - 75.0 07/29/2018 [facility] Lymphocytes 6.0 20.0 - 40.0 07/29/2018 [facility] Monocytes 4.5 2.0 - 12.0 07/29/2018 [facility] VIRAL - SEROLOGY Influ B Negative (07/28/18 12:46 PM) Negative 07/28/2018 [facility] VIRAL - SEROLOGY Influ A Negative (07/28/18 12:46 PM) Negative 07/28/2018 [facility] CARDIAC ENZYMES Troponin-I <0.02 0.00 - 0.40 07/28/2018 [facility] CARDIAC ENZYMES Troponin-I <0.02 0.00 - 0.40 07/28/2018 [facility] HEMATOLOGY D-Dimer 0.28 07/28/2018 [facility] CARDIAC ENZYMES Total CK 43 12 - 191 07/28/2018 [facility] CARDIAC ENZYMES BNP 9 <=100 pg/mL 07/28/2018 [facility] CARDIAC ENZYMES Troponin-I <0.02 0.00 - 0.40 07/28/2018 [facility] CHEM PANEL eGFR 63 07/28/2018 Result Comment: [...] should be multiplied by the estimated BMI. [facility] CHEM PANEL Alk Phos 99 39 - 136 07/28/2018 [facility] CHEM PANEL Bili Total 0.2 0.2 - 1.3 07/28/2018 [facility] CHEM PANEL ALT 18 0 - 65 07/28/2018 [facility] CHEM PANEL AST 11 0 - 37 07/28/2018 [facility] CHEM PANEL Albumin Lvl 3.3 3.5 - 5.0 07/28/2018 [facility] CHEM PANEL Calcium Lvl 8.2 8.5 - 10.5 07/28/2018 [facility] CHEM PANEL Total Protein 7.5 6.4 - 8.4 07/28/2018 [facility] CHEM PANEL Chloride Lvl 110 95 - 109 07/28/2018 [facility] CHEM PANEL CO2 23 24 - 32 07/28/2018 [facility] CHEM PANEL Sodium Lvl 139 135 - 145 07/28/2018 [facility] CHEM PANEL Potassium Lvl 3.5 3.5 - 5.1 07/28/2018 [facility] CHEM PANEL BUN 13 7 - 22 07/28/2018 [facility] CHEM PANEL Creatinine Lvl 1.10 0.50 - 1.40 07/28/2018 [facility] CHEM PANEL Glucose Lvl 118 70 - 99 07/28/2018 [facility] CHEM PANEL AGAP 9.5 10.0 - 20.0 07/28/2018 [facility] CHEM PANEL Globulin 4.2 2.7 - 4.2 07/28/2018 [facility] CHEM PANEL A/G Ratio 0.8 0.7 - 1.6 07/28/2018 [facility] CHEM PANEL B/C Ratio 12 6 - 25 07/28/2018 [facility] ENDOCRINOLOGY S Preg Negative *NA* (07/28/18 12:32 AM) Negative 07/28/2018 [facility] HEMATOLOGY Monocytes # 0.5 0.0 - 0.8 07/28/2018 [facility] HEMATOLOGY Eosinophils # 0.1 0.0 - 0.5 07/28/2018 [facility] HEMATOLOGY Basophils # 0.1 0.0 - 0.2 07/28/2018 [facility] HEMATOLOGY Microcyte 1+ *ABN* (07/28/18 12:32 AM) None Seen 07/28/2018 [facility] Segs 78.0 45.0 - 75.0 07/28/2018 [facility] Lymphocytes 16.1 20.0 - 40.0 07/28/2018 [facility] HEMATOLOGY Monocytes 4.4 2.0 - 12.0 07/28/2018 [facility] HEMATOLOGY Eosinophils 1.0 0.0 - 4.0 07/28/2018 [facility] HEMATOLOGY Basophils 0.5 0.0 - 1.0 07/28/2018 [facility] Neutrophils # 8.6 1.5 - 8.1 07/28/2018 [facility] Lymphocytes # 1.8 1.0 - 5.5 07/28/2018 [facility] RBC 4.89 4.20 - 5.40 07/28/2018 [facility] Hgb 12.1 12.0 - 16.0 07/28/2018 [facility] MCV 77.9 80.0 - 98.0 07/28/2018 [facility] MCH 24.8 27.0 - 31.0 07/28/2018 [facility] WBC 11.0 3.7 - 10.4 07/28/2018 [facility] Platelet 294 133 - 450 07/28/2018 [facility] MPV 8.4 7.4 - 10.4 07/28/2018 [facility] Hct 38.1 36.0 - 48.0 07/28/2018 [facility] MCHC 31.8 32.0 - 36.0 07/28/2018 [facility] RDW 16.4 11.5 - 14.5 07/28/2018 [facility] INR 0.96 0.85 - 1.17 07/28/2018 [facility] HEMATOLOGY PT 12.6 12.0 - 14.7 07/28/2018 [facility] PTT 32.0 22.9 - 35.8 07/28/2018 [facility] CARDIAC ENZYMES Troponin-I <0.02 0.00 - 0.40 03/17/2018 [facility] CHEM PANEL Lipase Lvl 91 73 - 393 03/17/2018 [facility] CHEM PANEL eGFR 93 03/17/2018 Result Comment: [...] should be multiplied by the estimated BMI. [facility] CHEM PANEL Alk Phos 98 39 - 136 03/17/2018 [facility] CHEM PANEL AST 15 0 - 37 03/17/2018 [facility] CHEM PANEL ALT 17 0 - 65 03/17/2018 [facility] CHEM PANEL Albumin Lvl 3.4 3.5 - 5.0 03/17/2018 [facility] CHEM PANEL BUN 13 7 - 22 03/17/2018 [facility] CHEM PANEL Glucose Lvl 84 70 - 99 03/17/2018 [facility] CHEM PANEL Chloride Lvl 106 95 - 109 03/17/2018 [facility] CHEM PANEL Potassium Lvl 3.9 3.5 - 5.1 03/17/2018 [facility] CHEM PANEL Sodium Lvl 141 135 - 145 03/17/2018 [facility] CHEM PANEL Creatinine Lvl 0.79 0.50 - 1.40 03/17/2018 [facility] CHEM PANEL Total Protein 7.8 6.4 - 8.4 03/17/2018 [facility] CHEM PANEL Calcium Lvl 8.8 8.5 - 10.5 03/17/2018 [facility] CHEM PANEL CO2 25 24 - 32 03/17/2018 [facility] CHEM PANEL Bili Total 0.3 0.2 - 1.3 03/17/2018 [facility] CHEM PANEL A/G Ratio 0.8 0.7 - 1.6 03/17/2018 [facility] CHEM PANEL Globulin 4.4 2.7 - 4.2 03/17/2018 [facility] CHEM PANEL B/C Ratio 16 6 - 25 03/17/2018 [facility] CHEM PANEL AGAP 13.9 10.0 - 20.0 03/17/2018 [facility] HEMATOLOGY Basophils # 0.1 0.0 - 0.2 03/17/2018 [facility] HEMATOLOGY Eosinophils # 0.2 0.0 - 0.5 03/17/2018 [facility] HEMATOLOGY Microcyte 1+ *ABN* (03/16/18 10:56 PM) None Seen 03/17/2018 [facility] HEMATOLOGY Lymphocytes # 3.6 1.0 - 5.5 03/17/2018 [facility] HEMATOLOGY Neutrophils # 8.9 1.5 - 8.1 03/17/2018 [facility] HEMATOLOGY Monocytes # 0.6 0.0 - 0.8 03/17/2018 [facility] HEMATOLOGY Basophils 0.7 0.0 - 1.0 03/17/2018 [facility] HEMATOLOGY Eosinophils 1.4 0.0 - 4.0 03/17/2018 [facility] Lymphocytes 27.3 20.0 - 40.0 03/17/2018 [facility] Monocytes 4.2 2.0 - 12.0 03/17/2018 [facility] Segs 66.4 45.0 - 75.0 03/17/2018 [facility] RDW 16.6 11.5 - 14.5 03/17/2018 [facility] MCHC 33.1 32.0 - 36.0 03/17/2018 [facility] MCH 25.6 27.0 - 31.0 03/17/2018 [facility] MCV 77.4 80.0 - 98.0 03/17/2018 [facility] HEMATOLOGY Hct 39.2 36.0 - 48.0 03/17/2018 [facility] Hgb 13.0 12.0 - 16.0 03/17/2018 [facility] WBC 13.4 3.7 - 10.4 03/17/2018 [facility] HEMATOLOGY Platelet 292 133 - 450 03/17/2018 [facility] HEMATOLOGY RBC 5.07 4.20 - 5.40 03/17/2018 [facility] MPV 8.8 7.4 - 10.4 03/17/2018 [facility] URINE AND STOOL UA WBC 1 0 - 5 03/17/2018 [facility] URINE AND STOOL UA Leuk Est Trace *ABN* (03/16/18 10:56 PM) Negative 03/17/2018 [facility] URINE AND STOOL UA Sq Epi Occasional /LPF Few /LPF 03/17/2018 [facility] URINE AND STOOL UA Nitrite Negative (03/16/18 10:56 PM) Negative 03/17/2018 [facility] URINE AND STOOL UA Blood Negative (03/16/18 [...] Turbidity Clear (03/16/18 10:56 PM) Clear 03/17/2018 [facility] URINE AND STOOL UA Color Yellow *NA* (03/16/18 10:56 PM) Yellow 03/17/2018 [facility] URINE AND STOOL UA Bacteria Few /HPF None Seen /HPF 03/17/2018 [facility] URINE AND STOOL UA RBC 2 0 - 2 03/17/2018 [facility] URINE AND STOOL UA Urobilinogen <=1.0 mg/dL 0.1 - 1.0 03/17/2018 [facility] URINE CHEM U Preg Negative (03/16/18 10:56 [...] UA RBC 2 0 - 2 03/03/2018 [facility] URINE AND STOOL UA Sq Epi Occasional /LPF Few /LPF 03/03/2018 [facility] URINE AND STOOL UA Leuk Est Moderate *ABN* (03/03/18 9:40 AM) Negative 03/03/2018 [facility] URINE AND STOOL UA Spec Grav 1.014 <=1.030 03/03/2018 [facility] URINE AND STOOL UA pH 5.0 5.0 - 8.0 03/03/2018 [facility] URINE AND STOOL UA Turbidity Clear (03/03/18 9:40 AM) Clear 03/03/2018 [facility] URINE AND STOOL UA Color Yellow *NA* (03/03/18 9:40 AM) Yellow 03/03/2018 [facility] Culture: Urine <10,000 CFU/mL Skin Martina 03/03/2018 [facility] ELECTROLYTES AGAP 15.2 10.0 - 20.0 03/03/2018 [facility] ELECTROLYTES eGFR 88 03/03/2018 Result Comment: The [...] should be multiplied by the estimated BMI. [facility] ELECTROLYTES Sodium Lvl 144 135 - 145 03/03/2018 [facility] ELECTROLYTES Creatinine Lvl 0.83 0.50 - 1.40 03/03/2018 [facility] ELECTROLYTES Potassium Lvl 4.2 3.5 - 5.1 03/03/2018 [facility] ELECTROLYTES CO2 22 24 - 32 03/03/2018 [facility] ELECTROLYTES Chloride Lvl 111 95 - 109 03/03/2018 [facility] ELECTROLYTES Calcium Lvl 8.4 8.5 - 10.5 03/03/2018 [facility] ELECTROLYTES Glucose Lvl 97 70 - 99 03/03/2018 [facility] ELECTROLYTES BUN 9 7 - 22 03/03/2018 [facility] ENDOCRINOLOGY S Preg Negative *NA* (03/03/18 9:16 AM) Negative 03/03/2018 [facility] HEMATOLOGY Eosinophils # 0.2 0.0 - 0.5 03/03/2018 [facility] Basophils # 0.1 0.0 - 0.2 03/03/2018 [facility] Microcyte 1+ *ABN* (03/03/18 9:16 AM) None Seen 03/03/2018 [facility] HEMATOLOGY Lymphocytes 19.5 20.0 - 40.0 03/03/2018 [facility] Segs 72.5 45.0 - 75.0 03/03/2018 [facility] Monocytes 4.9 2.0 - 12.0 03/03/2018 [facility] Basophils 1.1 0.0 - 1.0 03/03/2018 [facility] Eosinophils 2.0 0.0 - 4.0 03/03/2018 [facility] Lymphocytes # 1.9 1.0 - 5.5 03/03/2018 [facility] Neutrophils # 7.2 1.5 - 8.1 03/03/2018 [facility] Monocytes # 0.5 0.0 - 0.8 03/03/2018 [facility] D-Dimer 0.33 03/03/2018 [facility] MPV 8.0 7.4 - 10.4 03/03/2018 [facility] RDW 16.6 11.5 - 14.5 03/03/2018 [facility] Platelet 309 133 - 450 03/03/2018 [facility] MCHC 33.4 32.0 - 36.0 03/03/2018 [facility] MCH 25.6 27.0 - 31.0 03/03/2018 [facility] Hct 35.8 36.0 - 48.0 03/03/2018 [facility] RBC 4.65 4.20 - 5.40 03/03/2018 [facility] Hgb 11.9 12.0 - 16.0 03/03/2018 [facility] WBC 10.0 3.7 - 10.4 03/03/2018 [facility] MCV 76.9 80.0 - 98.0 03/03/2018 [facility] RAPID Grp A Strep Scr Negative (03/03/18 9:16 AM) Negative 03/03/2018 [facility] VIRAL - SEROLOGY Influ B Negative (03/03/18 9:16 AM) Negative 03/03/2018 [facility] VIRAL - SEROLOGY Influ A Negative (03/03/18 9:16 AM) Negative 03/03/2018 [facility] HEMATOLOGY D-Dimer 0.35 02/11/2018 [facility] CARDIAC ENZYMES Total CK 38 12 - 191 02/10/2018 [facility] CARDIAC ENZYMES BNP 19 <=100 pg/mL 02/10/2018 [facility] CARDIAC ENZYMES Troponin-I <0.02 0.00 - 0.40 02/10/2018 [facility] CHEM PANEL eGFR 66 02/10/2018 Result Comment: [...] should be multiplied by the estimated BMI. [facility] CHEM PANEL Potassium Lvl 3.5 3.5 - 5.1 02/10/2018 [facility] CHEM PANEL Chloride Lvl 108 95 - 109 02/10/2018 [facility] CHEM PANEL Calcium Lvl 9.7 8.5 - 10.5 02/10/2018 [facility] CHEM PANEL CO2 31 24 - 32 02/10/2018 [facility] CHEM PANEL Sodium Lvl 143 135 - 145 02/10/2018 [facility] CHEM PANEL Creatinine Lvl 1.05 0.50 - 1.40 02/10/2018 [facility] CHEM PANEL ALT 18 0 - 65 02/10/2018 [facility] CHEM PANEL Albumin Lvl 3.3 3.5 - 5.0 02/10/2018 [facility] CHEM PANEL Alk Phos 97 39 - 136 02/10/2018 [facility] CHEM PANEL AST 12 0 - 37 02/10/2018 [facility] CHEM PANEL Total Protein 7.5 6.4 - 8.4 02/10/2018 [facility] CHEM PANEL Bili Total <0.1 0.2 - 1.3 02/10/2018 [facility] CHEM PANEL BUN 13 7 - 22 02/10/2018 [facility] CHEM PANEL Glucose Lvl 93 70 - 99 02/10/2018 [facility] CHEM PANEL Globulin 4.2 2.7 - 4.2 02/10/2018 [facility] CHEM PANEL A/G Ratio 0.8 0.7 - 1.6 02/10/2018 [facility] CHEM PANEL B/C Ratio 12 6 - 25 02/10/2018 [facility] CHEM PANEL AGAP 7.5 10.0 - 20.0 02/10/2018 [facility] ENDOCRINOLOGY S Preg Negative *NA* (02/10/18 5:18 PM) Negative 02/10/2018 [facility] HEMATOLOGY Neutrophils # 7.1 1.5 - 8.1 02/10/2018 [facility] Lymphocytes # 3.1 1.0 - 5.5 02/10/2018 [facility] Monocytes # 0.5 0.0 - 0.8 02/10/2018 [facility] HEMATOLOGY Eosinophils # 0.2 0.0 - 0.5 02/10/2018 [facility] Basophils # 0.1 0.0 - 0.2 02/10/2018 [facility] Microcyte 1+ *ABN* (02/10/18 5:18 PM) None Seen 02/10/2018 [facility] Segs 64.6 45.0 - 75.0 02/10/2018 [facility] Lymphocytes 28.1 20.0 - 40.0 02/10/2018 [facility] Basophils 1.2 0.0 - 1.0 02/10/2018 [facility] Monocytes 4.2 2.0 - 12.0 02/10/2018 [facility] Eosinophils 1.9 0.0 - 4.0 02/10/2018 [facility] WBC 11.0 3.7 - 10.4 02/10/2018 [facility] Hgb 12.0 12.0 - 16.0 02/10/2018 [facility] RBC 4.77 4.20 - 5.40 02/10/2018 [facility] RDW 16.0 11.5 - 14.5 02/10/2018 [facility] MCH 25.3 27.0 - 31.0 02/10/2018 [facility] HEMATOLOGY MCHC 33.3 32.0 - 36.0 02/10/2018 [facility] HEMATOLOGY Hct 36.2 36.0 - 48.0 02/10/2018 [facility] HEMATOLOGY MCV 76.0 80.0 - 98.0 02/10/2018 [facility] HEMATOLOGY Platelet 292 133 - 450 02/10/2018 [facility] HEMATOLOGY MPV 8.1 7.4 - 10.4 02/10/2018 [facility] URINE AND STOOL UA Spec Grav 1.021 <=1.030 09/29/2017 [facility] URINE AND STOOL UA pH 5.0 5.0 - 8.0 09/29/2017 [facility] URINE AND STOOL UA Glucose Negative mg/dL Negative mg/dL 09/29/2017 [facility] URINE AND STOOL UA Protein Negative mg/dL Negative mg/dL 09/29/2017 [facility] URINE AND STOOL UA Bili Negative *NA* (09/29/17 4:49 PM) Negative 09/29/2017 [facility] URINE AND STOOL UA Ketones Negative mg/dL Negative mg/dL 09/29/2017 [facility] URINE AND STOOL UA Blood Negative (09/29/17 4:49 PM) Negative 09/29/2017 [facility] URINE AND STOOL UA Leuk Est Negative (09/29/17 4:49 PM) Negative 09/29/2017 [facility] URINE AND STOOL UA Nitrite Negative (09/29/17 4:49 PM) Negative 09/29/2017 [facility] URINE AND STOOL UA WBC 2 0 - 5 09/29/2017 [facility] URINE AND STOOL UA Sq Epi Few /LPF Few /LPF 09/29/2017 [facility] URINE AND STOOL UA RBC 5 0 - 2 09/29/2017 [facility] URINE AND STOOL UA Mucus Few /LPF None Seen /LPF 09/29/2017 [facility] URINE AND STOOL UA Urobilinogen <=1.0 mg/dL 0.1 - 1.0 09/29/2017 [facility] URINE AND STOOL UA Color Yellow *NA* (09/29/17 4:49 PM) Yellow 09/29/2017 [facility] URINE AND STOOL UA Turbidity Clear (09/29/17 4:49 PM) Clear 09/29/2017 [facility] URINE CHEM U Preg Negative (09/29/17 4:49 PM) Negative 09/29/2017 [facility] CHEM PANEL Lactic Acid Lvl 1.0 0.5 - 2.2 09/29/2017 [facility] ELECTROLYTES AGAP 9.9 10.0 - 20.0 09/29/2017 [facility] ELECTROLYTES Globulin 4.3 2.7 - 4.2 09/29/2017 [facility] ELECTROLYTES B/C Ratio 13 6 - 25 09/29/2017 [facility] ELECTROLYTES A/G Ratio 0.7 0.7 - 1.6 09/29/2017 [facility] ELECTROLYTES eGFR 98 09/29/2017 Result Comment: The [...] should be multiplied by the estimated BMI. [facility] ELECTROLYTES Creatinine Lvl 0.76 0.50 - 1.40 09/29/2017 [facility] ELECTROLYTES Potassium Lvl 3.9 3.5 - 5.1 09/29/2017 [facility] ELECTROLYTES Sodium Lvl 142 135 - 145 09/29/2017 [facility] ELECTROLYTES CO2 25 24 - 32 09/29/2017 [facility] ELECTROLYTES Calcium Lvl 8.6 8.5 - 10.5 09/29/2017 [facility] ELECTROLYTES Chloride Lvl 111 95 - 109 09/29/2017 [facility] ELECTROLYTES Total Protein 7.5 6.4 - 8.4 09/29/2017 [facility] ELECTROLYTES AST 20 0 - 37 09/29/2017 [facility] ELECTROLYTES ALT 22 0 - 65 09/29/2017 [facility] ELECTROLYTES Albumin Lvl 3.2 3.5 - 5.0 09/29/2017 [facility] ELECTROLYTES Alk Phos 101 39 - 136 09/29/2017 [facility] ELECTROLYTES Bili Total 0.2 0.2 - 1.3 09/29/2017 [facility] ELECTROLYTES Glucose Lvl 82 70 - 99 09/29/2017 [facility] ELECTROLYTES BUN 10 7 - 22 09/29/2017 [facility] HEMATOLOGY Microcyte 1+ *ABN* (09/29/17 2:44 PM) None Seen 09/29/2017 [facility] HEMATOLOGY Monocytes 4.3 2.0 - 12.0 09/29/2017 [facility] HEMATOLOGY Eosinophils 2.1 0.0 - 4.0 09/29/2017 [facility] HEMATOLOGY Segs 65.9 45.0 - 75.0 09/29/2017 [facility] HEMATOLOGY Lymphocytes # 3.5 1.0 - 5.5 09/29/2017 [facility] HEMATOLOGY Monocytes # 0.6 0.0 - 0.8 09/29/2017 [facility] HEMATOLOGY Eosinophils # 0.3 0.0 - 0.5 09/29/2017 [facility] HEMATOLOGY Lymphocytes 26.8 20.0 - 40.0 09/29/2017 [facility] HEMATOLOGY Basophils 0.9 0.0 - 1.0 09/29/2017 [facility] HEMATOLOGY Segs-Bands # 8.5 1.5 - 8.1 09/29/2017 [facility] Basophils # 0.1 0.0 - 0.2 09/29/2017 [facility] HEMATOLOGY Hct 37.7 36.0 - 48.0 09/29/2017 [facility] MCV 76.7 80.0 - 98.0 09/29/2017 [facility] MCH 25.4 27.0 - 31.0 09/29/2017 [facility] MCHC 33.1 32.0 - 36.0 09/29/2017 [facility] RDW 16.1 11.5 - 14.5 09/29/2017 [facility] Hgb 12.5 12.0 - 16.0 09/29/2017 [facility] Platelet 326 133 - 450 09/29/2017 [facility] MPV 8.3 7.4 - 10.4 09/29/2017 [facility] RBC 4.91 4.20 - 5.40 09/29/2017 [facility] WBC 12.9 3.7 - 10.4 09/29/2017 [facility] URINE AND STOOL UA Color Yellow *NA* (07/21/17 10:58 PM) Yellow 07/22/2017 [facility] URINE AND STOOL UA Turbidity Marked *ABN* (07/21/17 10:58 PM) Clear 07/22/2017 [facility] URINE AND STOOL UA Spec Grav 1.019 <=1.030 07/22/2017 [facility] URINE AND STOOL UA pH 7.0 [...] Nitrite Negative (07/21/17 10:58 PM) Negative 07/22/2017 [facility] URINE AND STOOL UA WBC 6 0 - 5 07/22/2017 [facility] URINE AND STOOL UA Sq Epi Many /LPF Few /LPF 07/22/2017 [facility] URINE AND STOOL UA Amorph Anita Few /HPF None Seen /HPF 07/22/2017 [facility] URINE AND STOOL UA RBC 2 0 - 2 07/22/2017 [facility] URINE AND STOOL UA Urobilinogen <=1.0 mg/dL 0.1 - 1.0 07/22/2017 [facility] URINE CHEM U Preg Negative (07/21/17 10:58 PM) Negative 07/22/2017 [facility] TOXICOLOGY Vanco Tr TND 0800 03/14/2017 [facility] TOXICOLOGY Vanco Tr 17.6 03/14/2017 [facility] HEMATOLOGY MCH 26.4 27.0 - 31.0 03/14/2017 [facility] HEMATOLOGY MCV 78.2 80.0 - 98.0 03/14/2017 [facility] HEMATOLOGY Hct 32.8 36.0 - 48.0 03/14/2017 [facility] HEMATOLOGY Hgb 11.1 12.0 - 16.0 03/14/2017 [facility] HEMATOLOGY MCHC 33.7 32.0 - 36.0 03/14/2017 [facility] HEMATOLOGY RBC 4.20 4.20 - 5.40 03/14/2017 [facility] HEMATOLOGY WBC 10.7 3.7 - 10.4 03/14/2017 [facility] HEMATOLOGY RDW 15.5 11.5 - 14.5 03/14/2017 [facility] HEMATOLOGY MPV 8.3 7.4 - 10.4 03/14/2017 [facility] HEMATOLOGY Platelet 262 133 - 450 03/14/2017 [facility] TOXICOLOGY Vanco Tr 22.1 03/14/2017 [facility] TOXICOLOGY Vanco Tr TND 06:00 03/14/2017 [facility] CHEM PANEL eGFR 88 03/13/2017 Result Comment: [...] should be multiplied by the estimated BMI. [facility] CHEM PANEL Calcium Lvl 8.0 8.5 - 10.5 03/13/2017 [facility] CHEM PANEL Glucose Lvl 139 70 - 99 03/13/2017 [facility] CHEM PANEL CO2 25 24 - 32 03/13/2017 [facility] CHEM PANEL AGAP 14.3 10.0 - 20.0 03/13/2017 [facility] CHEM PANEL Sodium Lvl 140 135 - 145 03/13/2017 [facility] CHEM PANEL Potassium Lvl 3.3 3.5 - 5.1 03/13/2017 [facility] CHEM PANEL Chloride Lvl 104 95 - 109 03/13/2017 [facility] CHEM PANEL BUN 11 7 - 22 03/13/2017 [facility] CHEM PANEL Creatinine Lvl 0.83 0.50 - 1.40 03/13/2017 [facility] HEMATOLOGY RBC 4.39 4.20 - 5.40 03/13/2017 [facility] HEMATOLOGY WBC 13.5 3.7 - 10.4 03/13/2017 [facility] HEMATOLOGY MPV 8.1 7.4 - 10.4 03/13/2017 [facility] HEMATOLOGY RDW 15.6 11.5 - 14.5 03/13/2017 [facility] Platelet 285 133 - 450 03/13/2017 [facility] MCHC 33.7 32.0 - 36.0 03/13/2017 [facility] MCH 26.0 27.0 - 31.0 03/13/2017 [facility] Hct 33.8 36.0 - 48.0 03/13/2017 [facility] MCV 77.1 80.0 - 98.0 03/13/2017 [facility] Hgb 11.4 12.0 - 16.0 03/13/2017 [facility] HEMATOLOGY Basophils 0.5 0.0 - 1.0 03/13/2017 [facility] HEMATOLOGY Lymphocytes # 3.7 1.0 - 5.5 03/13/2017 [facility] HEMATOLOGY Segs-Bands # 9.1 1.5 - 8.1 03/13/2017 [facility] Eosinophils # 0.2 0.0 - 0.5 03/13/2017 [facility] Monocytes # 0.5 0.0 - 0.8 03/13/2017 [facility] Microcyte 1+ *ABN* (03/13/17 4:59 AM) None Seen 03/13/2017 [facility] Basophils # 0.1 0.0 - 0.2 03/13/2017 [facility] Lymphocytes 27.6 20.0 - 40.0 03/13/2017 [facility] HEMATOLOGY Segs 66.9 45.0 - 75.0 03/13/2017 [facility] Eosinophils 1.3 0.0 - 4.0 03/13/2017 [facility] Monocytes 3.7 2.0 - 12.0 03/13/2017 [facility] RAPID Grp A Strep Scr Negative (03/12/17 5:50 PM) Negative 03/12/2017 [facility] VIRAL - SEROLOGY Influ B Negative (03/12/17 5:50 PM) Negative 03/12/2017 [facility] VIRAL - SEROLOGY Influ A Negative (03/12/17 5:50 PM) Negative 03/12/2017 [facility] URINE AND STOOL UA Color Ltyellow 03/12/2017 [facility] URINE AND STOOL UA Urobilinogen <=1.0 mg/dL 0.1 - 1.0 03/12/2017 [facility] URINE AND STOOL UA Bacteria Occasional /HPF None Seen /HPF 03/12/2017 [facility] URINE AND STOOL UA RBC 3 0 - 2 03/12/2017 [facility] URINE AND STOOL UA Nitrite Negative (03/12/17 4:14 PM) Negative 03/12/2017 [facility] URINE AND STOOL UA pH 5.0 5.0 - 8.0 03/12/2017 [facility] URINE AND STOOL UA Glucose Negative mg/dL Negative mg/dL 03/12/2017 [facility] URINE AND STOOL UA Protein Negative mg/dL Negative mg/dL 03/12/2017 [facility] URINE AND STOOL UA Ketones Negative mg/dL Negative mg/dL 03/12/2017 [facility] URINE AND STOOL UA WBC 3 0 - 5 03/12/2017 [facility] URINE AND STOOL UA Leuk Est Moderate *ABN* (03/12/17 4:14 PM) Negative 03/12/2017 [facility] URINE AND STOOL UA Sq Epi Few /LPF Few /LPF 03/12/2017 [facility] URINE AND STOOL UA Blood Moderate *ABN* (03/12/17 4:14 PM) Negative 03/12/2017 [facility] URINE AND STOOL UA Bili Negative *NA* (03/12/17 4:14 PM) Negative 03/12/2017 [facility] URINE AND STOOL UA Turbidity Slight *ABN* (03/12/17 4:14 PM) Clear 03/12/2017 [facility] URINE AND STOOL UA Spec Grav 1.016 <=1.030 03/12/2017 [facility] URINE CHEM U Preg Negative (03/12/17 4:14 PM) Negative 03/12/2017 [facility] CHEM PANEL eGFR 79 03/12/2017 Result Comment: [...] should be multiplied by the estimated BMI. [facility] CHEM PANEL Chloride Lvl 106 95 - 109 03/12/2017 [facility] CHEM PANEL Potassium Lvl 3.9 3.5 - 5.1 03/12/2017 [facility] CHEM PANEL Sodium Lvl 140 135 - 145 03/12/2017 [facility] CHEM PANEL Total Protein 7.7 6.4 - 8.4 03/12/2017 [facility] CHEM PANEL Bili Total 0.4 0.2 - 1.3 03/12/2017 [facility] CHEM PANEL Alk Phos 110 39 - 136 03/12/2017 [facility] CHEM PANEL AST 14 0 - 37 03/12/2017 [facility] CHEM PANEL Calcium Lvl 8.9 8.5 - 10.5 03/12/2017 [facility] CHEM PANEL CO2 25 24 - 32 03/12/2017 [facility] CHEM PANEL ALT 20 0 - 65 03/12/2017 [facility] CHEM PANEL Albumin Lvl 3.3 3.5 - 5.0 03/12/2017 [facility] CHEM PANEL Glucose Lvl 102 70 - 99 03/12/2017 [facility] CHEM PANEL Creatinine Lvl 0.94 0.50 - 1.40 03/12/2017 [facility] CHEM PANEL BUN 11 7 - 22 03/12/2017 [facility] ENDOCRINOLOGY S Preg Negative *NA* (03/12/17 4:01 PM) Negative 03/12/2017 [facility] HEMATOLOGY Eosinophils 0.3 0.0 - 4.0 03/12/2017 [facility] HEMATOLOGY Monocytes 4.7 2.0 - 12.0 03/12/2017 [facility] HEMATOLOGY Segs 87.0 45.0 - 75.0 03/12/2017 [facility] HEMATOLOGY Lymphocytes 7.3 20.0 - 40.0 03/12/2017 [facility] HEMATOLOGY Basophils # 0.1 0.0 - 0.2 03/12/2017 [facility] HEMATOLOGY Monocytes # 0.9 0.0 - 0.8 03/12/2017 [facility] HEMATOLOGY Segs-Bands # 16.9 1.5 - 8.1 03/12/2017 [facility] HEMATOLOGY Basophils 0.7 0.0 - 1.0 03/12/2017 [facility] HEMATOLOGY Lymphocytes # 1.4 1.0 - 5.5 03/12/2017 [facility] HEMATOLOGY Microcyte 1+ *ABN* (03/12/17 4:01 PM) None Seen 03/12/2017 [facility] HEMATOLOGY PTT 28.5 22.9 - 35.8 03/12/2017 [facility] HEMATOLOGY PT 13.1 12.0 - 14.7 03/12/2017 [facility] HEMATOLOGY INR 0.97 0.85 - 1.17 03/12/2017 [facility] HEMATOLOGY Platelet 302 133 - 450 03/12/2017 [facility] HEMATOLOGY MPV 8.2 7.4 - 10.4 03/12/2017 [facility] HEMATOLOGY RBC 5.06 4.20 - 5.40 03/12/2017 [facility] HEMATOLOGY WBC 19.5 3.7 - 10.4 03/12/2017 [facility] HEMATOLOGY Hgb 13.0 12.0 - 16.0 03/12/2017 [facility] HEMATOLOGY MCV 77.2 80.0 - 98.0 03/12/2017 [facility] HEMATOLOGY Hct 39.1 36.0 - 48.0 03/12/2017 [facility] HEMATOLOGY MCHC 33.2 32.0 - 36.0 03/12/2017 [facility] HEMATOLOGY MCH 25.6 27.0 - 31.0 03/12/2017 [facility] HEMATOLOGY RDW 15.4 11.5 - 14.5 03/12/2017 [facility] CARDIAC ENZYMES Troponin-I <0.02 0.00 - 0.40 11/05/2016 [facility] CARDIAC ENZYMES CK MB Index <1.4 0.0 - 2.5 11/05/2016 [facility] CARDIAC ENZYMES CK MB <0.5 0.5 - 3.6 11/05/2016 [facility] CARDIAC ENZYMES Total CK 37 12 - 191 11/05/2016 [facility] CARDIAC ENZYMES CK MB Index 2.9 0.0 - 2.5 11/05/2016 [facility] CARDIAC ENZYMES BNP 9 <=100 pg/mL 11/05/2016 [facility] CARDIAC ENZYMES Troponin-I <0.02 0.00 - 0.40 11/05/2016 [facility] CARDIAC ENZYMES Total CK 24 12 - 191 11/05/2016 [facility] CARDIAC ENZYMES CK MB 0.7 0.5 - 3.6 11/05/2016 [facility] CHEM PANEL Magnesium Lvl 2.0 1.8 - 2.4 11/05/2016 [facility] CHEM PANEL Bili Total 0.2 0.2 - 1.3 11/05/2016 [facility] CHEM PANEL eGFR 92 11/05/2016 Result Comment: [...] should be multiplied by the estimated BMI. [facility] CHEM PANEL AGAP 10.6 10.0 - 20.0 11/05/2016 [facility] CHEM PANEL B/C Ratio 16 6 - 25 11/05/2016 [facility] CHEM PANEL A/G Ratio 0.8 0.7 - 1.6 11/05/2016 [facility] CHEM PANEL Globulin 3.9 2.7 - 4.2 11/05/2016 [facility] CHEM PANEL BUN 13 7 - 22 11/05/2016 [facility] CHEM PANEL Glucose Lvl 109 70 - 99 11/05/2016 [facility] CHEM PANEL Calcium Lvl 9.0 8.5 - 10.5 11/05/2016 [facility] CHEM PANEL Total Protein 6.9 6.4 - 8.4 11/05/2016 [facility] CHEM PANEL AST 7 0 - 37 11/05/2016 [facility] CHEM PANEL Sodium Lvl 140 135 - 145 11/05/2016 [facility] CHEM PANEL Creatinine Lvl 0.81 0.50 - 1.40 11/05/2016 [facility] CHEM PANEL ALT 13 0 - 65 11/05/2016 [facility] CHEM PANEL Alk Phos 97 39 - 136 11/05/2016 [facility] CHEM PANEL Albumin Lvl 3.0 3.5 - 5.0 11/05/2016 [facility] CHEM PANEL Chloride Lvl 106 95 - 109 11/05/2016 [facility] CHEM PANEL Potassium Lvl 3.6 3.5 - 5.1 11/05/2016 [facility] CHEM PANEL CO2 27 24 - 32 11/05/2016 [facility] CHEM PANEL Lipase Lvl 96 73 - 393 11/05/2016 [facility] ENDOCRINOLOGY S Preg Negative *NA* (11/04/16 11:02 PM) Negative 11/05/2016 [facility] HEMATOLOGY Monocytes # 0.7 0.0 - 0.8 11/05/2016 [facility] HEMATOLOGY Lymphocytes # 3.2 1.0 - 5.5 11/05/2016 [facility] HEMATOLOGY Segs-Bands # 7.1 1.5 - 8.1 11/05/2016 [facility] HEMATOLOGY Monocytes 5.9 2.0 - 12.0 11/05/2016 [facility] Lymphocytes 28.4 20.0 - 40.0 11/05/2016 [facility] HEMATOLOGY Segs 63.7 45.0 - 75.0 11/05/2016 [facility] HEMATOLOGY Basophils 0.7 0.0 - 1.0 11/05/2016 [facility] HEMATOLOGY Eosinophils 1.3 0.0 - 4.0 11/05/2016 [facility] HEMATOLOGY Basophils # 0.1 0.0 - 0.2 11/05/2016 [facility] HEMATOLOGY Eosinophils # 0.1 0.0 - 0.5 11/05/2016 [facility] HEMATOLOGY Microcyte 1+ *ABN* (11/04/16 11:02 PM) None Seen 11/05/2016 [facility] HEMATOLOGY PTT 29.2 22.9 - 35.8 11/05/2016 [facility] HEMATOLOGY INR 1.01 0.85 - 1.17 11/05/2016 [facility] HEMATOLOGY PT 13.5 12.0 - 14.7 11/05/2016 [facility] HEMATOLOGY Platelet 280 133 - 450 11/05/2016 [facility] HEMATOLOGY RDW 15.6 11.5 - 14.5 11/05/2016 [facility] MCHC 34.3 32.0 - 36.0 11/05/2016 [facility] MCH 27.0 27.0 - 31.0 11/05/2016 [facility] Hct 35.6 36.0 - 48.0 11/05/2016 [facility] HEMATOLOGY Hgb 12.2 12.0 - 16.0 11/05/2016 [facility] HEMATOLOGY RBC 4.53 4.20 - 5.40 11/05/2016 [facility] HEMATOLOGY WBC 11.1 3.7 - 10.4 11/05/2016 [facility] HEMATOLOGY MCV 78.6 80.0 - 98.0 11/05/2016 [facility] HEMATOLOGY MPV 8.4 7.4 - 10.4 11/05/2016 [facility] CARDIAC ENZYMES Troponin-I <0.02 0.00 - 0.40 05/17/2016 [facility] URINE AND STOOL UA Urobilinogen <=1.0 mg/dL 0.1 - 1.0 05/17/2016 [facility] URINE AND STOOL UA Glucose Negative mg/dL Negative mg/dL 05/17/2016 [facility] URINE AND STOOL UA Ketones Negative mg/dL Negative mg/dL 05/17/2016 [facility] URINE AND STOOL UA Bili Negative *NA* (05/17/16 3:53 AM) Negative 05/17/2016 [facility] URINE AND STOOL UA Protein Negative mg/dL Negative mg/dL 05/17/2016 [facility] URINE AND STOOL UA Spec Grav 1.023 <=1.030 05/17/2016 [facility] URINE AND STOOL UA pH 5.0 5.0 - 8.0 05/17/2016 [facility] URINE AND STOOL UA Color Yellow *NA* (05/17/16 3:53 AM) Yellow 05/17/2016 [facility] URINE AND STOOL UA Turbidity Slight *ABN* (05/17/16 3:53 AM) Clear 05/17/2016 [facility] URINE AND STOOL UA Mucus Few /LPF None Seen /LPF 05/17/2016 [facility] URINE AND STOOL UA Trans Epi 1 <=0 /LPF 05/17/2016 [facility] URINE AND STOOL UA RBC 8 0 [...] Nitrite Negative (05/17/16 3:53 AM) Negative 05/17/2016 [facility] URINE CHEM U Preg Negative (05/17/16 3:53 AM) Negative 05/17/2016 [facility] CHEM PANEL Lipase Lvl 228 73 - 393 05/17/2016 [facility] CHEM PANEL eGFR 95 05/17/2016 Result Comment: [...] should be multiplied by the estimated BMI. [facility] CHEM PANEL Alk Phos 111 39 - 136 05/17/2016 [facility] CHEM PANEL Bili Total 0.4 0.2 - 1.3 05/17/2016 [facility] CHEM PANEL AST 41 0 - 37 05/17/2016 [facility] CHEM PANEL Albumin Lvl 3.4 3.5 - 5.0 05/17/2016 [facility] CHEM PANEL Total Protein 7.3 6.4 - 8.4 05/17/2016 [facility] CHEM PANEL Calcium Lvl 8.8 8.5 - 10.5 05/17/2016 [facility] CHEM PANEL ALT 50 0 - 65 05/17/2016 [facility] CHEM PANEL CO2 25 24 - 32 05/17/2016 [facility] CHEM PANEL Chloride Lvl 109 95 - 109 05/17/2016 [facility] CHEM PANEL Sodium Lvl 142 135 - 145 05/17/2016 [facility] CHEM PANEL Creatinine Lvl 0.79 0.50 - 1.40 05/17/2016 [facility] CHEM PANEL Potassium Lvl 3.7 3.5 - 5.1 05/17/2016 [facility] CHEM PANEL Glucose Lvl 99 70 - 99 05/17/2016 [facility] CHEM PANEL BUN 13 7 - 22 05/17/2016 [facility] CHEM PANEL A/G Ratio 0.9 0.7 - 1.6 05/17/2016 [facility] CHEM PANEL Globulin 3.9 2.7 - 4.2 05/17/2016 [facility] CHEM PANEL B/C Ratio 16 6 - 25 05/17/2016 [facility] CHEM PANEL AGAP 11.7 10.0 - 20.0 05/17/2016 [facility] HEMATOLOGY Eosinophils 1.6 0.0 - 4.0 05/17/2016 [facility] HEMATOLOGY Basophils 0.9 0.0 - 1.0 05/17/2016 [facility] HEMATOLOGY Segs-Bands # 3.7 1.5 - 8.1 05/17/2016 [facility] HEMATOLOGY Monocytes 7.5 2.0 - 12.0 05/17/2016 [facility] HEMATOLOGY Monocytes # 0.6 0.0 - 0.8 05/17/2016 [facility] HEMATOLOGY Basophils # 0.1 0.0 - 0.2 05/17/2016 [facility] HEMATOLOGY Lymphocytes # 3.1 1.0 - 5.5 05/17/2016 [facility] HEMATOLOGY Eosinophils # 0.1 0.0 - 0.5 05/17/2016 [facility] HEMATOLOGY Lymphocytes 40.9 20.0 - 40.0 05/17/2016 [facility] HEMATOLOGY Segs 49.1 45.0 - 75.0 05/17/2016 [facility] HEMATOLOGY MPV 7.8 7.4 - 10.4 05/17/2016 [facility] HEMATOLOGY WBC 7.5 3.7 - 10.4 05/17/2016 [facility] HEMATOLOGY RBC 4.45 4.20 - 5.40 05/17/2016 [facility] HEMATOLOGY Hct 35.5 36.0 - 48.0 05/17/2016 [facility] HEMATOLOGY MCH 25.8 27.0 - 31.0 05/17/2016 [facility] HEMATOLOGY Hgb 11.5 12.0 - 16.0 05/17/2016 [facility] HEMATOLOGY MCV 79.7 80.0 - 98.0 05/17/2016 [facility] HEMATOLOGY MCHC 32.4 32.0 - 36.0 05/17/2016 [facility] HEMATOLOGY RDW 18.7 11.5 - 14.5 05/17/2016 [facility] HEMATOLOGY Platelet 238 133 - 450 05/17/2016 [facility] CARDIAC ENZYMES Troponin-I <0.02 0.00 - 0.40 05/13/2016 [facility] IMMUNOLOGY [place] Scr Negative (05/13/16 12:16 PM) Negative 05/13/2016 [...] Blood Negative (05/13/16 12:13 PM) Negative 05/13/2016 [facility] URINE AND STOOL UA Bili Negative *NA* (05/13/16 12:13 PM) Negative 05/13/2016 [facility] URINE AND STOOL UA Ketones Negative mg/dL Negative mg/dL 05/13/2016 [facility] URINE AND STOOL UA pH 5.0 5.0 - 8.0 05/13/2016 [facility] URINE AND STOOL UA Spec Grav 1.024 <=1.030 05/13/2016 [facility] URINE AND STOOL UA Turbidity Clear (05/13/16 12:13 PM) Clear 05/13/2016 [facility] URINE AND STOOL UA Glucose Negative mg/dL Negative mg/dL 05/13/2016 [facility] URINE AND STOOL UA Protein Negative mg/dL Negative mg/dL 05/13/2016 [facility] URINE AND STOOL UA Color Yellow *NA* (05/13/16 12:13 PM) Yellow 05/13/2016 [facility] CHEM PANEL Lactic Acid Lvl 0.6 0.5 - 2.2 05/13/2016 [facility] CARDIAC ENZYMES Troponin-I <0.02 0.00 - 0.40 05/13/2016 [facility] CARDIAC ENZYMES CK MB 0.6 0.5 - 3.6 05/13/2016 [facility] CARDIAC ENZYMES Total CK 44 12 - 191 05/13/2016 [facility] CARDIAC ENZYMES CK MB Index 1.4 0.0 - 2.5 05/13/2016 [facility] CHEM PANEL Procalcitonin Lvl 0.08 0.00 - 0.10 05/13/2016 [facility] CHEM PANEL eGFR 71 05/13/2016 Result Comment: [...] HEMATOLOGY Bands 0.0 0.0 - 11.0 05/13/2016 [facility] HEMATOLOGY Monocytes # 0.9 0.0 - 0.8 05/13/2016 [facility] HEMATOLOGY Eosinophils # 0.3 0.0 - 0.5 05/13/2016 [facility] HEMATOLOGY Lymphocytes # 4.4 1.0 - 5.5 05/13/2016 [facility] HEMATOLOGY Segs-Bands # 3.3 1.5 - 8.1 05/13/2016 [facility] HEMATOLOGY Polychrom Slight 05/13/2016 [facility] HEMATOLOGY Atypical Lymphs 2.0 <=0.0 % 05/13/2016 [facility] HEMATOLOGY Plt Morph Normal (05/13/16 9:15 AM) 05/13/2016 [facility] HEMATOLOGY MCHC 32.7 32.0 - 36.0 05/13/2016 [facility] HEMATOLOGY MCH 26.2 27.0 - 31.0 05/13/2016 [facility] HEMATOLOGY MCV 80.1 80.0 - 98.0 05/13/2016 [facility] HEMATOLOGY Hct 34.6 36.0 - 48.0 05/13/2016 [facility] HEMATOLOGY Hgb 11.3 12.0 - 16.0 05/13/2016 [facility] HEMATOLOGY WBC 8.8 3.7 - 10.4 05/13/2016 [facility] HEMATOLOGY MPV 8.3 7.4 - 10.4 05/13/2016 [facility] HEMATOLOGY Platelet 231 133 - 450 05/13/2016 [facility] HEMATOLOGY RDW 18.5 11.5 - 14.5 05/13/2016 [facility] HEMATOLOGY RBC 4.32 4.20 - 5.40 05/13/2016 [facility] HEMATOLOGY PTT 27.2 22.9 - 35.8 05/13/2016 [facility] HEMATOLOGY INR 1.01 0.85 - 1.17 05/13/2016 [facility] HEMATOLOGY PT 13.5 12.0 - 14.7 05/13/2016 [facility] VIRAL - SEROLOGY Influ A Negative (05/13/16 9:15 AM) Negative 05/13/2016 [facility] VIRAL - SEROLOGY Influ B Negative (05/13/16 9:15 AM) Negative 05/13/2016 [facility] URINE AND STOOL UA Spec Grav 1.024 <=1.030 04/20/2016 [facility] URINE AND STOOL UA Color Yellow *NA* (04/19/16 11:04 PM) Yellow 04/20/2016 [facility] URINE AND STOOL UA Turbidity Clear (04/19/16 11:04 PM) Clear 04/20/2016 [facility] URINE AND STOOL UA Sq Epi Few /LPF Few /LPF 04/20/2016 [facility] URINE AND STOOL UA Mucus Few /LPF None Seen /LPF 04/20/2016 [facility] URINE AND STOOL UA Nitrite Negative (04/19/16 11:04 PM) Negative 04/20/2016 [facility] URINE AND STOOL UA Leuk Est Trace *ABN* (04/19/16 11:04 PM) Negative 04/20/2016 [facility] URINE AND STOOL UA WBC 3 0 - 5 04/20/2016 [facility] URINE AND STOOL UA RBC 24 0 - 2 04/20/2016 [facility] URINE AND STOOL UA Urobilinogen <=1.0 mg/dL 0.1 - 1.0 04/20/2016 [facility] URINE AND STOOL UA Protein Negative mg/dL Negative mg/dL 04/20/2016 [facility] URINE AND STOOL UA pH 7.0 5.0 - 8.0 04/20/2016 [facility] URINE AND STOOL UA Ketones Negative mg/dL Negative mg/dL 04/20/2016 [facility] URINE AND STOOL UA Blood Small *ABN* (04/19/16 11:04 PM) Negative 04/20/2016 [facility] URINE AND STOOL UA Bili Negative *NA* (04/19/16 11:04 PM) Negative 04/20/2016 [facility] URINE AND STOOL UA Glucose Negative mg/dL Negative mg/dL 04/20/2016 [facility] URINE CHEM U Preg Negative (04/19/16 11:04 PM) Negative 04/20/2016 [facility] CHEM PANEL ALT 32 0 - 65 04/20/2016 [facility] CHEM PANEL Bili Total 0.4 0.2 - 1.3 04/20/2016 [facility] CHEM PANEL Alk Phos 103 39 - 136 04/20/2016 [facility] CHEM PANEL Albumin Lvl 3.2 3.5 - 5.0 04/20/2016 [facility] CHEM PANEL CO2 26 24 - 32 04/20/2016 [facility] CHEM PANEL AST 30 0 - 37 04/20/2016 [facility] CHEM PANEL Total Protein 7.5 6.4 - 8.4 04/20/2016 [facility] CHEM PANEL Calcium Lvl 8.5 8.5 - 10.5 04/20/2016 [facility] CHEM PANEL eGFR 78 04/20/2016 Result Comment: [...] should be multiplied by the estimated BMI. [facility] CHEM PANEL Creatinine Lvl 0.93 0.50 - 1.40 04/20/2016 [facility] CHEM PANEL BUN 11 7 - 22 04/20/2016 [facility] CHEM PANEL Sodium Lvl 140 135 - 145 04/20/2016 [facility] CHEM PANEL Chloride Lvl 106 95 - 109 04/20/2016 [facility] CHEM PANEL Potassium Lvl 3.7 3.5 - 5.1 04/20/2016 [facility] CHEM PANEL Glucose Lvl 97 70 - 99 04/20/2016 [facility] CHEM PANEL Globulin 4.3 2.7 - 4.2 04/20/2016 [facility] CHEM PANEL A/G Ratio 0.7 0.7 - 1.6 04/20/2016 [facility] CHEM PANEL B/C Ratio 12 6 - 25 04/20/2016 [facility] CHEM PANEL AGAP 11.7 10.0 - 20.0 04/20/2016 [facility] CHEM PANEL Lactic Acid Lvl 0.8 0.5 - 2.2 04/20/2016 [facility] HEMATOLOGY WBC 6.7 3.7 - 10.4 04/20/2016 [facility] HEMATOLOGY RBC 4.72 4.20 - 5.40 04/20/2016 [facility] HEMATOLOGY Hct 36.8 36.0 - 48.0 04/20/2016 [facility] Hgb 12.3 12.0 - 16.0 04/20/2016 [facility] HEMATOLOGY MCH 26.1 27.0 - 31.0 04/20/2016 [facility] HEMATOLOGY MCV 77.9 80.0 - 98.0 04/20/2016 [facility] MCHC 33.5 32.0 - 36.0 04/20/2016 [facility] HEMATOLOGY Platelet 252 133 - 450 04/20/2016 [facility] HEMATOLOGY RDW 15.6 11.5 - 14.5 04/20/2016 [facility] MPV 8.3 7.4 - 10.4 04/20/2016 [facility] HEMATOLOGY Segs 60.8 45.0 - 75.0 04/20/2016 [facility] HEMATOLOGY Monocytes 7.2 2.0 - 12.0 04/20/2016 [facility] Lymphocytes 27.9 20.0 - 40.0 04/20/2016 [facility] HEMATOLOGY Basophils 1.2 0.0 - 1.0 04/20/2016 [facility] Monocytes # 0.5 0.0 - 0.8 04/20/2016 [facility] HEMATOLOGY Lymphocytes # 1.9 1.0 - 5.5 04/20/2016 [facility] HEMATOLOGY Eosinophils 2.9 0.0 - 4.0 04/20/2016 [facility] Segs-Bands # 4.1 1.5 - 8.1 04/20/2016 [facility] HEMATOLOGY Eosinophils # 0.2 0.0 - 0.5 04/20/2016 [facility] Microcyte 1+ *ABN* (04/19/16 10:27 PM) None Seen 04/20/2016 [facility] HEMATOLOGY Basophils # 0.1 0.0 - 0.2 04/20/2016 [facility] VIRAL - SEROLOGY Influ B Negative (04/19/16 9:06 PM) Negative 04/20/2016 [facility] VIRAL - SEROLOGY Influ A Negative (04/19/16 9:06 PM) Negative 04/20/2016 [facility] URINE AND STOOL UA Urobilinogen <=1.0 mg/dL 0.1 - 1.0 01/07/2016 [facility] URINE AND STOOL UA Bacteria Occasional /HPF None Seen /HPF 01/07/2016 [facility] URINE AND STOOL UA RBC 7 0 - 2 01/07/2016 [facility] URINE AND STOOL UA WBC 8 0 - 5 01/07/2016 [facility] URINE AND STOOL UA Blood Negative (01/07/16 3:02 AM) Negative 01/07/2016 [facility] URINE AND STOOL UA Bili Negative *NA* (01/07/16 3:02 AM) Negative 01/07/2016 [facility] URINE AND STOOL UA Mucus Few /LPF None Seen /LPF 01/07/2016 [facility] URINE AND STOOL UA Sq Epi Many /LPF Few /LPF 01/07/2016 [facility] URINE AND STOOL UA Leuk Est Large *ABN* (01/07/16 3:02 AM) Negative 01/07/2016 [facility] URINE AND STOOL UA Nitrite Negative (01/07/16 3:02 AM) Negative 01/07/2016 [facility] URINE AND STOOL UA Turbidity Slight *ABN* (01/07/16 3:02 AM) Clear 01/07/2016 [facility] URINE AND STOOL UA Color Yellow *NA* (01/07/16 3:02 AM) Yellow 01/07/2016 [facility] URINE AND STOOL UA Ketones Negative mg/dL Negative mg/dL 01/07/2016 [facility] URINE AND STOOL UA Spec Grav 1.026 <=1.030 01/07/2016 [facility] URINE AND STOOL UA Glucose Negative mg/dL Negative mg/dL 01/07/2016 [facility] URINE AND STOOL UA Protein Negative mg/dL Negative mg/dL 01/07/2016 [facility] URINE AND STOOL UA pH 6.0 5.0 - 8.0 01/07/2016 [facility] URINE CHEM U Preg Negative (01/07/16 3:02 AM) Negative 01/07/2016 [facility] CHEM PANEL Glucose Lvl 99 70 - 99 01/07/2016 [facility] CHEM PANEL eGFR 82 01/07/2016 Result Comment: [...] should be multiplied by the estimated BMI. [facility] CHEM PANEL BUN 14 7 - 22 01/07/2016 [facility] CHEM PANEL Creatinine Lvl 0.89 0.50 - 1.40 01/07/2016 [facility] CHEM PANEL Potassium Lvl 3.6 3.5 - 5.1 01/07/2016 [facility] CHEM PANEL Sodium Lvl 139 135 - 145 01/07/2016 [facility] CHEM PANEL Calcium Lvl 8.6 8.5 - 10.5 01/07/2016 [facility] CHEM PANEL Chloride Lvl 108 95 - 109 01/07/2016 [facility] CHEM PANEL CO2 23 24 - 32 01/07/2016 [facility] CHEM PANEL AGAP 11.6 10.0 - 20.0 01/07/2016 [facility] MCHC 33.1 32.0 - 36.0 01/07/2016 [facility] RDW 14.5 11.5 - 14.5 01/07/2016 [facility] Platelet 315 133 - 450 01/07/2016 [facility] MPV 8.1 7.4 - 10.4 01/07/2016 [facility] MCV 80.4 80.0 - 98.0 01/07/2016 [facility] MCH 26.6 27.0 - 31.0 01/07/2016 [facility] Hct 38.7 36.0 - 48.0 01/07/2016 [facility] RBC 4.82 4.20 - 5.40 01/07/2016 [facility] Hgb 12.8 12.0 - 16.0 01/07/2016 [facility] WBC 14.6 3.7 - 10.4 01/07/2016 [facility] Segs-Bands # 10.9 1.5 - 8.1 01/07/2016 [facility] Lymphocytes # 2.7 1.0 - 5.5 01/07/2016 [facility] Monocytes # 0.7 0.0 - 0.8 01/07/2016 [facility] HEMATOLOGY Eosinophils # 0.1 0.0 - 0.5 01/07/2016 [facility] HEMATOLOGY Lymphocytes 18.5 20.0 - 40.0 01/07/2016 [facility] HEMATOLOGY Eosinophils 0.9 0.0 - 4.0 01/07/2016 [facility] HEMATOLOGY Segs 74.8 45.0 - 75.0 01/07/2016 [facility] HEMATOLOGY Monocytes 4.8 2.0 - 12.0 01/07/2016 [facility] HEMATOLOGY Basophils 1.0 0.0 - 1.0 01/07/2016 [facility] HEMATOLOGY Basophils # 0.1 0.0 - 0.2 01/07/2016 [facility] CHEM PANEL eGFR 69 12/20/2015 Result Comment: [...] should be multiplied by the estimated BMI. [facility] CHEM PANEL BUN 11 7 - 22 12/20/2015 [facility] CHEM PANEL Glucose Lvl 92 70 - 99 12/20/2015 [facility] CHEM PANEL Calcium Lvl 8.7 8.5 - 10.5 12/20/2015 [facility] CHEM PANEL Sodium Lvl 141 135 - 145 12/20/2015 [facility] CHEM PANEL Creatinine Lvl 1.02 0.50 - 1.40 12/20/2015 [facility] CHEM PANEL Potassium Lvl 3.9 3.5 - 5.1 12/20/2015 [facility] CHEM PANEL CO2 26 24 - 32 12/20/2015 [facility] CHEM PANEL Chloride Lvl 106 95 - 109 12/20/2015 [facility] CHEM PANEL Alk Phos 110 39 - 136 12/20/2015 [facility] CHEM PANEL Bili Total 0.3 0.2 - 1.3 12/20/2015 [facility] CHEM PANEL Total Protein 7.3 6.4 - 8.4 12/20/2015 [facility] CHEM PANEL Albumin Lvl 3.3 3.5 - 5.0 12/20/2015 [facility] CHEM PANEL ALT 27 0 - 65 12/20/2015 [facility] CHEM PANEL AST 17 0 - 37 12/20/2015 [facility] CHEM PANEL A/G Ratio 0.8 0.7 - 1.6 12/20/2015 [facility] CHEM PANEL AGAP 12.9 10.0 - 20.0 12/20/2015 [facility] CHEM PANEL Globulin 4.0 2.0 - 4.0 12/20/2015 [facility] CHEM PANEL B/C Ratio 11 6 - 25 12/20/2015 [facility] HEMATOLOGY MPV 8.2 7.4 - 10.4 12/20/2015 [facility] HEMATOLOGY Platelet 309 133 - 450 12/20/2015 [facility] HEMATOLOGY MCH 26.8 27.0 - 31.0 12/20/2015 [facility] HEMATOLOGY MCV 81.3 80.0 - 98.0 12/20/2015 [facility] HEMATOLOGY RDW 14.3 11.5 - 14.5 12/20/2015 [facility] HEMATOLOGY MCHC 32.9 32.0 - 36.0 12/20/2015 [facility] HEMATOLOGY WBC 16.6 3.7 - 10.4 12/20/2015 [facility] HEMATOLOGY RBC 4.87 4.20 - 5.40 12/20/2015 [facility] HEMATOLOGY Hct 39.6 36.0 - 48.0 12/20/2015 [facility] HEMATOLOGY Hgb 13.0 12.0 - 16.0 12/20/2015 [facility] HEMATOLOGY Basophils # 0.2 0.0 - 0.2 12/20/2015 [facility] HEMATOLOGY Segs-Bands # 13.1 1.5 - 8.1 12/20/2015 [facility] HEMATOLOGY Monocytes 3.5 2.0 - 12.0 12/20/2015 [facility] HEMATOLOGY Eosinophils 0.7 0.0 - 4.0 12/20/2015 [facility] HEMATOLOGY Basophils 1.1 0.0 - 1.0 12/20/2015 [facility] HEMATOLOGY Segs 79.3 45.0 - 75.0 12/20/2015 [facility] HEMATOLOGY Lymphocytes 15.4 20.0 - 40.0 12/20/2015 [facility] HEMATOLOGY Lymphocytes # 2.5 1.0 - 5.5 12/20/2015 [facility] HEMATOLOGY Eosinophils # 0.1 0.0 - 0.5 12/20/2015 [facility] HEMATOLOGY Monocytes # 0.6 0.0 - 0.8 12/20/2015 [facility] URINE AND STOOL UA Urobilinogen <=1.0 mg/dL 0.1 - 1.0 12/20/2015 [facility] URINE AND STOOL UA Sq Epi Occasional /LPF Few /LPF 12/20/2015 [facility] URINE AND STOOL UA WBC 2 0 - 5 12/20/2015 [facility] URINE AND STOOL UA Leuk Est Small *ABN* (12/20/15 1:23 AM) Negative 12/20/2015 [facility] URINE AND STOOL UA Ketones Trace mg/dL Negative mg/dL 12/20/2015 [facility] URINE AND STOOL UA Bili Negative *NA* (12/20/15 1:23 AM) Negative 12/20/2015 [facility] URINE AND STOOL UA Glucose Negative mg/dL Negative mg/dL 12/20/2015 [facility] URINE AND STOOL UA Bacteria Occasional /HPF None Seen /HPF 12/20/2015 [facility] URINE AND STOOL UA Mucus Many /LPF None Seen /LPF 12/20/2015 [facility] URINE AND STOOL UA RBC 3 0 - 2 12/20/2015 [facility] URINE AND STOOL UA Color Yellow *NA* (12/20/15 1:23 AM) Yellow 12/20/2015 [facility] URINE AND STOOL UA Turbidity Clear (12/20/15 1:23 AM) Clear 12/20/2015 [facility] URINE AND STOOL UA Blood Large *ABN* (12/20/15 1:23 AM) Negative 12/20/2015 [facility] URINE AND STOOL UA Nitrite Negative (12/20/15 1:23 AM) Negative 12/20/2015 [facility] URINE AND STOOL UA Protein Negative mg/dL Negative mg/dL 12/20/2015 [facility] URINE AND STOOL UA Spec Grav 1.026 <=1.030 12/20/2015 [facility] URINE AND STOOL UA pH 5.0 5.0 - 8.0 12/20/2015 [facility] URINE CHEM U Preg Negative (12/20/15 1:23 AM) Negative 12/20/2015 [facility] CHEMISTRY AGAP 11.9 10.0 - 20.0 07/17/2013 Normal [facility] CHEMISTRY eGFR 44 07/17/2013 <sup>1</sup>Result Comment: The [...] should be multiplied by the estimated BMI. [facility] CHEMISTRY Chloride Lvl 106 95 - 109 07/17/2013 Normal [facility] CHEMISTRY Sodium Lvl 140 135 - 145 07/17/2013 Normal [facility] CHEMISTRY Potassium Lvl 3.9 3.5 - 5.1 07/17/2013 Normal [facility] CHEMISTRY Calcium Lvl 8.8 8.5 - 10.5 07/17/2013 Normal [facility] CHEMISTRY CO2 26 24 - 32 07/17/2013 Normal [facility] CHEMISTRY Glucose Lvl 107 70 - 99 07/17/2013 [place] <sup>2</sup>Interpretive Data: Adult reference range values reflect the clinical guidelines
of the [place] [employer]. [facility] CHEMISTRY BUN 15 7 - 22 07/17/2013 Normal [facility] [facility] CHE[facility]Y Creatinine Lvl 1.5 0.5 - 1.4 07/17/2013 [facility] HEMATOLOGY Monocytes 2.9 2.0 - 12.0 07/17/2013 Normal [facility] HEMATOLOGY Lymphocytes 18.8 20.0 - 40.0 07/17/2013 LOW [facility] HEMATOLOGY Basophils 0.1 0.0 - 1.0 07/17/2013 Normal [facility] HEMATOLOGY Eosinophils 0.1 0.0 - 4.0 07/17/2013 Normal [facility] HEMATOLOGY Segs-Bands # 4.8 1.5 - 8.1 07/17/2013 Normal [facility] HEMATOLOGY Segs 78.1 45.0 - 75.0 07/17/2013 [facility] HEMATOLOGY Basophils # 0.0 0.0 - 0.2 07/17/2013 Normal [facility] HEMATOLOGY Lymphocytes # 1.2 1.0 - 5.5 07/17/2013 Normal [facility] HEMATOLOGY Eosinophils # 0.0 0.0 - 0.5 07/17/2013 Normal [facility] HEMATOLOGY Monocytes # 0.2 0.0 - 0.8 07/17/2013 Normal [facility] HEMATOLOGY RBC X 10x6 4.71 4.20 - 5.40 07/17/2013 Normal [facility] HEMATOLOGY WBC X 10x3 6.1 3.7 - 10.4 07/17/2013 Normal [facility] HEMATOLOGY Hct 37.6 36.0 - 48.0 07/17/2013 Normal [facility] HEMATOLOGY Hgb 12.3 12.0 - 16.0 07/17/2013 Normal [facility] HEMATOLOGY MCV 79.9 81.0 - 99.0 07/17/2013 LOW [facility] HEMATOLOGY MCHC 32.8 32.0 - 36.0 07/17/2013 Normal [facility] HEMATOLOGY MCH 26.2 27.0 - 31.0 07/17/2013 LOW [facility] HEMATOLOGY RDW 15.1 11.5 - 14.5 07/17/2013 HI [facility] HEMATOLOGY MPV 8.1 7.4 - 10.4 07/17/2013 Normal [facility] HEMATOLOGY Platelet 289 133 - 450 07/17/2013 Normal [facility] IMMUNOLOGY [facility] HIV 4th GEN Negative (07/17/2013 11:08:00) Negative 07/17/2013 Normal [facility] CHEMISTRY CK MB Index <2.2 0.0 - 2.5 07/02/2012 Normal [facility] CHEMISTRY CK MB <0.5 0.5 - 3.6 07/02/2012 Normal [facility] CHEMISTRY Total CK 23 12 - 191 07/02/2012 Normal [facility] CHEMISTRY eGFR 73 07/02/2012 NA <sup>1</sup>Result Comment: [...] should be multiplied by the estimated BMI. [facility] CHEMISTRY Glucose Lvl 100 70 - 99 07/02/2012 HI <sup>2</sup>Interpretive Data: Adult reference range values reflect the clinical guidelines
of the [place] [employer]. [facility] CHEMISTRY Sodium Lvl 139 135 - 145 07/02/2012 Normal [facility] CHEMISTRY Creatinine Lvl 1.0 0.5 - 1.4 07/02/2012 Normal [facility] CHEMISTRY BUN 12 7 - 22 07/02/2012 Normal [facility] CHEMISTRY ALT 18 0 - 65 07/02/2012 Normal [facility] CHEMISTRY Alk Phos 99 39 - 136 07/02/2012 Normal [facility] CHEMISTRY Albumin Lvl 3.6 3.5 - 5.0 07/02/2012 Normal [facility] CHEMISTRY Bili Total 0.2 0.2 - 1.3 07/02/2012 Normal [facility] CHEMISTRY AST 11 0 - 37 07/02/2012 Normal [facility] CHEMISTRY Chloride Lvl 104 95 - 109 07/02/2012 Normal [facility] CHEMISTRY Potassium Lvl 3.7 3.5 - 5.1 07/02/2012 Normal [facility] CHEMISTRY Total Protein 7.8 6.4 - 8.4 07/02/2012 Normal [facility] CHEMISTRY Calcium Lvl 9.3 8.5 - 10.5 07/02/2012 Normal [facility] CHEMISTRY CO2 28 24 - 32 07/02/2012 Normal [facility] CHEMISTRY Globulin 4.2 2.0 - 4.0 07/02/2012 [facility] CHEMISTRY B/C Ratio 12 6 - 25 07/02/2012 Normal [facility] CHEMISTRY AGAP 10.7 10.0 - 20.0 07/02/2012 Normal [facility] CHEMISTRY A/G Ratio 0.9 0.7 - 1.6 07/02/2012 Normal [facility] CHEMISTRY Troponin-I <0.02 0.00 - 0.40 07/02/2012 Normal [facility] HEMATOLOGY Monocytes # 0.5 0.0 - 0.8 07/02/2012 Normal [facility] HEMATOLOGY Lymphocytes # 2.6 1.0 - 5.5 07/02/2012 Normal [facility] HEMATOLOGY Eosinophils 0.6 0.0 - 4.0 07/02/2012 Normal [facility] Segs-Bands # 9.7 1.5 - 8.1 07/02/2012 HI [facility] HEMATOLOGY Basophils 2.1 0.0 - 1.0 07/02/2012 HI [facility] HEMATOLOGY Basophils # 0.3 0.0 - 0.2 07/02/2012 HI [facility] HEMATOLOGY Eosinophils # 0.1 0.0 - 0.5 07/02/2012 Normal [facility] Segs 73.5 45.0 - 75.0 07/02/2012 Normal [facility] Lymphocytes 20.0 20.0 - 40.0 07/02/2012 Normal [facility] Monocytes 3.8 2.0 - 12.0 07/02/2012 Normal [facility] PTT 29.5 22.9 - 35.8 07/02/2012 Normal <sup>5</sup>Interpretive Data: Heparin Therapeutic Range: 57 - 92 Seconds [facility] PT 13.5 12.0 - 14.7 07/02/2012 Normal [facility] INR 1.01 0.85 - 1.17 07/02/2012 Normal <sup>3</sup>Interpretive Data: RECOMMENDED RANGES FOR PROTIME INR:
2.0-3.0 for most medical and surgical thromboembolic states.
2.5-3.5 for artificial heart valves and recurrent embolism.

INR SHOULD BE USED ONLY FOR PATIENTS ON STABLE ANTICOAGULANT THERAPY. [facility] D-Dimer 4 *ABN* (07/01/2012 22:20:00) 07/02/2012 ABN <sup>4</sup>Interpretive Data: In DIC, quantitative D-Dimer is generally greater than
0.66 ug/mL FEU. Values of quantitative D-Dimer less than
0.40 ug/mL FEU have been reported to be associated with a low
probability of deep vein thrombosis/pulmonary embolism.
This test alone should not be used to rule out DVT/PE. [facility] WBC 13.2 3.7 - 10.4 07/02/2012 HI [facility] RDW 15.1 11.5 - 14.5 07/02/2012 HI [facility] MCHC 33.8 32.0 - 36.0 07/02/2012 Normal [facility] HEMATOLOGY RBC 4.87 4.20 - 5.40 07/02/2012 Normal [facility] HEMATOLOGY MCH 26.5 27.0 - 31.0 07/02/2012 LOW [facility] HEMATOLOGY MCV 78.4 81.0 - 99.0 07/02/2012 [facility] HEMATOLOGY Hct 38.2 36.0 - 48.0 07/02/2012 Normal [facility] HEMATOLOGY Hgb 12.9 12.0 - 16.0 07/02/2012 Normal [facility] HEMATOLOGY Platelet 320 133 - 450 07/02/2012 Normal [facility] HEMATOLOGY MPV 8.4 7.4 - 10.4 07/02/2012 Normal [facility] CHEMISTRY Magnesium Lvl 2.2 1.8 - 2.4 04/25/2012 Normal [facility] CHEMISTRY eGFR 113 04/25/2012 NA <sup>2</sup>Result Comment: [...] should be multiplied by the estimated BMI. [facility] CHEMISTRY Potassium Lvl 4.5 3.5 - 5.1 04/25/2012 Normal [facility] CHEMISTRY Calcium Lvl 8.2 8.5 - 10.5 04/25/2012 LOW [facility] CHEMISTRY CO2 29 24 - 32 04/25/2012 Normal [facility] CHEMISTRY Chloride Lvl 108 95 - 109 04/25/2012 Normal [facility] CHEMISTRY Sodium Lvl 142 135 - 145 04/25/2012 Normal [facility] CHEMISTRY BUN 13 7 - 22 04/25/2012 Normal [facility] CHEMISTRY Glucose Lvl 192 70 - 99 04/25/2012 HI <sup>5</sup>Interpretive Data: Adult reference range values reflect the clinical guidelines
of the [place] [employer]. [facility] CHEMISTRY Creatinine Lvl 0.7 0.5 - 1.4 04/25/2012 Normal [facility] CHEMISTRY AGAP 9.5 10.0 - 20.0 04/25/2012 [facility] HEMATOLOGY PT 14.9 12.0 - 14.7 04/25/2012 [facility] HEMATOLOGY INR 1.15 0.85 - 1.17 04/25/2012 Normal <sup>9</sup>Interpretive Data: RECOMMENDED RANGES FOR PROTIME INR:
2.0-3.0 for most medical and surgical thromboembolic states.
2.5-3.5 for artificial heart valves and recurrent embolism.

INR SHOULD BE USED ONLY FOR PATIENTS ON STABLE ANTICOAGULANT THERAPY. [facility] HEMATOLOGY MPV 8.5 7.4 - 10.4 04/25/2012 Normal [facility] HEMATOLOGY Platelet 279 133 - 450 04/25/2012 Normal [facility] HEMATOLOGY RDW 16.2 11.5 - 14.5 04/25/2012 [facility] HEMATOLOGY MCHC 34.2 32.0 - 36.0 04/25/2012 Normal [facility] HEMATOLOGY Hgb 10.5 12.0 - 16.0 04/25/2012 [facility] HEMATOLOGY WBC 11.8 3.7 - 10.4 04/25/2012 [facility] HEMATOLOGY Hct 30.9 36.0 - 48.0 04/25/2012 [facility] HEMATOLOGY MCV 80.4 81.0 - 99.0 04/25/2012 [facility] HEMATOLOGY RBC 3.84 4.20 - 5.40 04/25/2012 [facility] HEMATOLOGY MCH 27.5 27.0 - 31.0 04/25/2012 Normal [facility] HEMATOLOGY Eosinophils # 0.0 0.0 - 0.5 04/25/2012 Normal [facility] HEMATOLOGY Lymphocytes # 1.0 1.0 - 5.5 04/25/2012 Normal [facility] HEMATOLOGY Monocytes # 0.4 0.0 - 0.8 04/25/2012 [facility] HEMATOLOGY Segs-Bands # 10.4 1.5 - 8.1 04/25/2012 [facility] HEMATOLOGY Eosinophils 0.0 0.0 - 4.0 04/25/2012 [facility] HEMATOLOGY Basophils 0.1 0.0 - 1.0 04/25/2012 Normal [facility] HEMATOLOGY Basophils # 0.0 0.0 - 0.2 04/25/2012 Normal [facility] HEMATOLOGY Monocytes 3.1 2.0 - 12.0 04/25/2012 Normal [facility] HEMATOLOGY Segs 88.7 45.0 - 75.0 04/25/2012 HI [facility] HEMATOLOGY Lymphocytes 8.1 20.0 - 40.0 04/25/2012 LOW [facility] CHEMISTRY FiO2 Art 21.0 04/24/2012 NA [facility] CHEMISTRY Mode Art Rm Air (04/24/2012 14:25:00) 04/24/2012 Normal [facility] CHEMISTRY Allens Art Positive (04/24/2012 14:25:00) 04/24/2012 Normal [facility] CHEMISTRY Site Art Right Ra (04/24/2012 14:25:00) 04/24/2012 Normal [facility] CHEMISTRY HCO3 Art 27 22 - 26 04/24/2012 HI [facility] CHEMISTRY O2 Sat Art 93.3 95.0 - 100.0 04/24/2012 LOW [facility] CHEMISTRY BE Art 2 -2-2 - 2 04/24/2012 Normal [facility] CHEMISTRY pH Art 7.40 7.35 - 7.45 04/24/2012 Normal [facility] CHEMISTRY pO2 Art 65 80 - 100 04/24/2012 LOW [facility] CHEMISTRY pCO2 Art 45 35 - 45 04/24/2012 Normal [facility] HEMATOLOGY PT 15.9 12.0 - 14.7 04/24/2012 HI [facility] HEMATOLOGY INR 1.25 0.85 - 1.17 04/24/2012 HI <sup>10</sup>Interpretive Data: RECOMMENDED RANGES FOR PROTIME INR:
2.0-3.0 for most medical and surgical thromboembolic states.
2.5-3.5 for artificial heart valves and recurrent embolism.

INR SHOULD BE USED ONLY FOR PATIENTS ON STABLE ANTICOAGULANT THERAPY. [facility] CHEMISTRY eGFR 96 04/24/2012 NA <sup>3</sup>Result Comment: [...] should be multiplied by the estimated BMI. [facility] CHEMISTRY Calcium Lvl 8.3 8.5 - 10.5 04/24/2012 LOW [facility] CHEMISTRY Potassium Lvl 4.7 3.5 - 5.1 04/24/2012 Normal [facility] CHEMISTRY CO2 28 24 - 32 04/24/2012 Normal [facility] CHEMISTRY Chloride Lvl 109 95 - 109 04/24/2012 Normal [facility] CHEMISTRY BUN 11 7 - 22 04/24/2012 Normal [facility] CHEMISTRY Glucose Lvl 143 70 - 99 04/24/2012 HI <sup>6</sup>Interpretive Data: Adult reference range values reflect the clinical guidelines
of the [place] [employer]. [facility] CHEMISTRY Creatinine Lvl 0.8 0.5 - 1.4 04/24/2012 Normal [facility] CHEMISTRY Sodium Lvl 141 135 - 145 04/24/2012 Normal [facility] CHEMISTRY AGAP 8.7 10.0 - 20.0 04/24/2012 LOW [facility] CHEMISTRY Magnesium Lvl 2.0 1.8 - 2.4 04/24/2012 Normal [facility] HEMATOLOGY Lymphocytes 6.3 20.0 - 40.0 04/24/2012 LOW [facility] HEMATOLOGY Segs 90.4 45.0 - 75.0 04/24/2012 [facility] HEMATOLOGY Eosinophils 0.0 0.0 - 4.0 04/24/2012 Normal [facility] HEMATOLOGY Monocytes 3.3 2.0 - 12.0 04/24/2012 Normal [facility] HEMATOLOGY Basophils # 0.0 0.0 - 0.2 04/24/2012 Normal [facility] HEMATOLOGY Lymphocytes # 1.0 1.0 - 5.5 04/24/2012 Normal [facility] HEMATOLOGY Segs-Bands # 14.7 1.5 - 8.1 04/24/2012 [facility] HEMATOLOGY Eosinophils # 0.0 0.0 - 0.5 04/24/2012 Normal [facility] HEMATOLOGY Monocytes # 0.5 0.0 - 0.8 04/24/2012 [facility] HEMATOLOGY Basophils 0.0 0.0 - 1.0 04/24/2012 Normal [facility] HEMATOLOGY Hgb 10.5 12.0 - 16.0 04/24/2012 LOW [facility] HEMATOLOGY RBC 3.84 4.20 - 5.40 04/24/2012 [...] Platelet 287 133 - 450 04/24/2012 Normal [facility] HEMATOLOGY MPV 8.8 7.4 - 10.4 04/24/2012 [...] AGAP 11.1 10.0 - 20.0 04/23/2012 Normal [facility] CHEMISTRY eGFR 83 04/23/2012 NA <sup>4</sup>Result Comment: [...] should be multiplied by the estimated BMI. [facility] CHEMISTRY Calcium Lvl 8.9 8.5 - 10.5 04/23/2012 Normal [facility] CHEMISTRY CO2 27 24 - 32 04/23/2012 Normal [facility] CHEMISTRY Potassium Lvl 4.1 3.5 - 5.1 04/23/2012 Normal [facility] CHEMISTRY Chloride Lvl 106 95 - 109 04/23/2012 Normal [facility] CHEMISTRY Sodium Lvl 140 135 - 145 04/23/2012 Normal [facility] CHEMISTRY Glucose Lvl 163 70 - 99 04/23/2012 HI <sup>7</sup>Interpretive Data: Adult reference range values reflect the clinical guidelines
of the [place] [employer]. [facility] CHEMISTRY Creatinine Lvl 0.9 0.5 - 1.4 04/23/2012 Normal [facility] CHEMISTRY BUN 8 7 - 22 04/23/2012 Normal [facility] HEMATOLOGY MCH 27.5 27.0 - 31.0 04/23/2012 Normal [facility] HEMATOLOGY MCV 79.5 81.0 - 99.0 04/23/2012 LOW [facility] HEMATOLOGY RDW 15.8 11.5 - 14.5 04/23/2012 HI [facility] HEMATOLOGY MPV 8.5 7.4 - 10.4 04/23/2012 Normal [facility] HEMATOLOGY Platelet 258 133 - 450 04/23/2012 Normal [facility] HEMATOLOGY Hct 30.7 36.0 - 48.0 04/23/2012 LOW [facility] HEMATOLOGY MCHC 34.5 32.0 - 36.0 04/23/2012 Normal [facility] HEMATOLOGY WBC 8.9 3.7 - 10.4 04/23/2012 Normal [facility] HEMATOLOGY RBC 3.86 4.20 - 5.40 04/23/2012 LOW [facility] HEMATOLOGY Hgb 10.6 12.0 - 16.0 04/23/2012 LOW [facility] HEMATOLOGY Segs-Bands # 8.2 1.5 - 8.1 04/23/2012 [facility] HEMATOLOGY Basophils # 0.0 0.0 - 0.2 04/23/2012 Normal [facility] HEMATOLOGY Eosinophils # 0.0 0.0 - 0.5 04/23/2012 Normal [facility] HEMATOLOGY Monocytes # 0.2 0.0 - 0.8 04/23/2012 Normal [facility] HEMATOLOGY Lymphocytes # 0.6 1.0 - 5.5 04/23/2012 LOW [facility] HEMATOLOGY Segs 91.5 45.0 - 75.0 04/23/2012 [facility] HEMATOLOGY Basophils 0.5 0.0 - 1.0 04/23/2012 Normal [facility] HEMATOLOGY Eosinophils 0.0 0.0 - 4.0 04/23/2012 Normal [facility] HEMATOLOGY Monocytes 1.7 2.0 - 12.0 04/23/2012 LOW [facility] HEMATOLOGY Lymphocytes 6.3 20.0 - 40.0 04/23/2012 LOW [facility] HEMATOLOGY PTT 44.2 22.9 - 35.8 04/23/2012 HI <sup>13</sup>Interpretive Data: Heparin Therapeutic Range: 57 - 92 Seconds [facility] HEMATOLOGY PT 14.5 12.0 - 14.7 04/23/2012 Normal [facility] HEMATOLOGY INR 1.11 0.85 - 1.17 04/23/2012 Normal <sup>11</sup>Interpretive Data: RECOMMENDED RANGES FOR PROTIME INR:
2.0-3.0 for most medical and surgical thromboembolic states.
2.5-3.5 for artificial heart valves and recurrent embolism.

INR SHOULD BE USED ONLY FOR PATIENTS ON STABLE ANTICOAGULANT THERAPY. [facility] Microbiology Gram Stain 04/22/2012 [facility] Microbiology Culture: Respiratory w/Gram Stain 04/22/2012 [facility] HEMATOLOGY D-Dimer 0.47 04/22/2012 NA <sup>12</sup>Interpretive Data: In DIC, quantitative D-Dimer is generally greater than
0.66 ug/mL FEU. Values of quantitative D-Dimer less than
0.40 ug/mL FEU have been reported to be associated with a low
probability of deep vein thrombosis/pulmonary embolism.
This test alone should not be used to rule out DVT/PE. [facility] BACTERIAL - SEROLOGY U S pneumo Ag Negative (04/22/2012 09:30:00) Negative 04/22/2012 Normal [facility] MICRO MISC - SEROLOGY U Legion Ag Negative 1 (04/22/2012 09:30:00) Negative 04/22/2012 Normal <sup>1</sup>Interpretive Data: This kit tests for Legionella pneumophila Serogroup 1 Antigen. [facility] Microbiology Culture: Urine 04/22/2012 [facility] CHEMISTRY Ferritin Lvl 58 5 - 204 04/22/2012 Normal [facility] CHEMISTRY Iron 34 30 - 160 04/22/2012 Normal [facility] Microbiology Culture: Blood 04/22/2012 [facility] Microbiology Culture: Blood 04/22/2012 [facility] CHEMISTRY Allens Art N/A (04/22/2012 07:38:00) 04/22/2012 Normal [facility] CHEMISTRY Mode Art Rm Air (04/22/2012 07:38:00) 04/22/2012 Normal [facility] CHEMISTRY pH Art 7.44 7.35 - 7.45 04/22/2012 Normal [facility] CHEMISTRY pCO2 Art 40 35 - 45 04/22/2012 Normal [facility] CHEMISTRY pO2 Art 60 80 - 100 04/22/2012 CRIT <sup>8</sup>Result Comment: Critical Result(s) called to at 04/22/2012 07:40:31 [employer] by Reece,CONNOR. Read back OK. [facility] CHEMISTRY HCO3 Art 26 22 - 26 04/22/2012 Normal [facility] CHEMISTRY BE Art 2 -2-2 - 2 04/22/2012 Normal [facility] CHEMISTRY O2 Sat Art 92.9 95.0 - 100.0 04/22/2012 LOW [facility] CHEMISTRY Site Art Right Br (04/22/2012 07:38:00) 04/22/2012 Normal [facility] CHEMISTRY A/G Ratio 0.9 0.7 - 1.6 04/22/2012 Normal [facility] CHEMISTRY B/C Ratio 8 6 - 25 04/22/2012 Normal [facility] CHEMISTRY Globulin 3.8 2.0 - 4.0 04/22/2012 Normal [facility] CHEMISTRY AST 20 0 - 37 04/22/2012 Normal [facility] CHEMISTRY ALT 19 0 - 65 04/22/2012 Normal [facility] CHEMISTRY Albumin Lvl 3.3 3.5 - 5.0 04/22/2012 LOW [facility] CHEMISTRY Total Protein 7.1 6.4 - 8.4 04/22/2012 Normal [facility] CHEMISTRY Bili Total 0.2 0.2 - 1.3 04/22/2012 Normal [facility] CHEMISTRY Alk Phos 91 39 - 136 04/22/2012 Normal [facility] CHEMISTRY S Preg Negative *NA* (04/22/2012 02:15:00) Negative 04/22/2012 NA [facility] HEMATOLOGY Protein S Func 109 54 - 137 04/22/2012 Normal [facility] HEMATOLOGY Protein C Func 172 72 - 147 04/22/2012 HI [facility] HEMATOLOGY PTT 35.4 22.9 - 35.8 04/22/2012 Normal <sup>14</sup>Interpretive Data: Heparin Therapeutic Range: 57 - 92 Seconds [facility] Pathology Reports No Data Provided for This [...] of acute cardiopulmonary disease. SL: MARGARET 09/28/2018 [facility] 1view DX Clinical Indication:42 years Female with Coughing - persistent cough Comparison: Chest x-ray 07/28/2018 FINDINGS: Lines: None. The single frontal chest radiograph shows normal lung volumes. No interstitial or airspace opacities. No pleural effusion. No pneumothorax. Cardiac silhouette is normal. Pulmonary vasculature is normal. The trachea is midline. There are no acute osseous abnormalities noted. IMPRESSION: No acute cardiopulmonary abnormality. 07/31/2018 [facility] 1view DX Clinical Indication: Shortness of breath. Comparison: 03/03/2018 FINDINGS: AP view of the chest submitted for interpretation. Lungs are clear. Heart size is normal. Central pulmonary vasculature appears normal. No effusion. No pneumothorax. No radiographically apparent acute osseous abnormality. IMPRESSION: 1. No radiographically apparent acute cardiopulmonary process. SL: [id number] 07/27/2018 [facility] Chest Pulmonary Embolism CTA Clinical Indication: Shortness [...] due to mild tracheomalacia SL: [id number] 07/27/2018 [facility] ED Abdomen/Pelvis IV contrast only CT Clinical [...] Appendix within normal limits. SL: [id number] 03/16/2018 [facility] Chest 2 views DX EXAM: Chest 2 views DX DATE: 03/03/2018 10:11 AM CDT INDICATION: - cough COMPARISON: 02/10/2018. IMPRESSION: Stable cardiac silhouette and mediastinum. No focal consolidation, significant pleural effusion or pneumothorax. SL: [id number] 03/03/2018 [facility] Chest 2 views DX PROCEDURE: Chest, PA [...] an acute cardiopulmonary process. SL: [id number] 02/10/2018 [facility] Spine lumbar wo contrast MRI Spine [...] and moderate thecal sac stenosis. 11/18/2017 [facility] Chest Pulmonary Embolism CTA EXAM: CT CHEST [...] generated. IV contrast: 100 cc Omnipaque. Dose: IWX=840.95 mGy-cm FINDINGS: PULMONARY ARTERIES: No central or [...] abnormality. No pulmonary embolism. SL: [id number] 09/29/2017 [facility] Chest 1view DX EXAM: Chest 1view DX DATE: 09/29/2017 2:31 PM CDT INDICATION: - SOB COMPARISON: None. IMPRESSION: Stable cardiac silhouette and mediastinum. No focal consolidation, significant pleural effusion or pneumothorax. SL: [id number] 09/29/2017 [facility] Spine thoracic 2 views DX THORACIC SPINE RADIOGRAPH 2 VIEWS INDICATION: Posttraumatic thoracic spine pain COMPARISON: None DISCUSSION: Vertebral body alignment is within normal limits. The disc spaces are maintained. The bones appear well mineralized. No acute compression or displaced fractures are identified. The paravertebral soft tissues are grossly unremarkable. IMPRESSION: Unremarkable radiographic appearance of the thoracic spine. SL:16 07/21/2017 [facility] Spine lumbar 2 or 3 views [...] No fracture or subluxation SL: [id number] 07/21/2017 [facility] Spine cervical wo contrast CT EXAM: CT [...] or malalignment of the cervical spine. SL: [id number] 03/12/2017 [facility] Chest/Abdomen/Pelvis w IV contrast CT EXAM: CT [...] contrast: [address] Radiation Dose: SEE=4870.79 mGy-cm FINDINGS: CHEST LUNG PARENCHYMA AND PLEURA: [...] pneumonitis. 2. No acute osseous abnormality. SL: [id number] 03/12/2017 [facility] 1view DX Patient Name: JAROD MEYERS : 1975; Age: 41 years y/o Female MR: [id number] Study: Chest 1view DX 03/12/2017 3:41 PM [...] pulmonary infiltrates. Correlate clinically for pneumonia. SL: [id number] 03/12/2017 [facility] Pulmonary Embolism CTA PROCEDURE: CTA CHEST WITH [...] IMPRESSION: Negative. END REPORT SL: [id number] 11/05/2016 [facility] 1view DX Exam: Chest X-Ray Clinical Indication: Chest pain. Technique: Frontal view of the chest is provided. Findings: Heart and mediastinum are normal. Lungs are clear. There are no pleural effusions. Impression: No acute intrathoracic disease. 11/04/2016 [facility] Abdomen AP DX ABDOMEN SUPINE CLINICAL INDICATION: [...] clinical diagnosis of constipation. SL: [id number] 05/17/2016 [facility] Pulmonary Embolism CTA Clinical Indication: Epigastric pain in left chest pain radiating to left arm, history of PE, cough and fever; Comparison: CT of the chest 07/02/2012 TECHNIQUE: Sequential trans-axial images were obtained thru the chest and upper abdomen after administration of iodinated contrast. Coronal and sagittal reconstructions were obtained. 75 cc of Omnipaque 350 was used for the exam. Dose: BNE=976 mGy-cm FINDINGS: LUNG PARENCHYMA AND PLEURA: There [...] pulmonary arterial hypertension. 4. Mild splenomegaly SL: [id number] 05/13/2016 [facility] 1view DX CHEST, 1 VIEW HISTORY: Fever; chest pain COMPARISON: 04/19/2016 FINDINGS: The lungs are clear. No pleural effusion or pneumothorax. Heart size normal. No acute osseous abnormality. SL: [id number] 05/13/2016 [facility] 2 views DX Two-view chest x-ray compared to 07/17/2013. History: Chest pain Comments: The trachea is midline. The cardiomediastinal silhouette is normal in size. No pneumonia. No pleural effusions or pneumothorax. Impression: No acute cardiopulmonary disease. 04/19/2016 [facility] Spine cervical 2 or 3 view [...] for fracture or subluxation. SL: ELVIA 01/07/2016 [facility] ED Abdomen/Pelvis IV contrast only CT PROCEDURE: [...] Please correlate with urinalysis. SL: MISSAEL 12/20/2015 [facility] Thoracic wo contrast MRI NAME: JAROD [...] or cord signal abnormality. SL: 24 02/17/2015 [facility] Outpatient Imaging [facility] Spine lumbar wo contrast MRI Name: JAROD [...] nerve roots. SL: ROSALINA CHAPPELL 53 02/17/2015 [facility] Outpatient Imaging [facility] Spine cervical wo contrast MRI Name: JAROD [...] right cord. SL: ROSALINA CHAPPELL 53 02/17/2015 [facility] Outpatient Imaging [facility] Renal Stone CT Name: JAROD MEYERS : 1975 SEX: F Ordering Physician: tSephan Torres Renal Stone CT : Aug 02, [...] IMPRESSION: Unremarkable renal stone CT. SL: 08/02/2013 [facility] Abdomen AP view Name: JAROD MEYERS : [...] supine view of the abdomen. SL: 07/28/2013 [facility] Outpatient Imaging [facility] Chest 1view Name: JAROD MEYERS : 1975 [...] 1. Mild pulmonary vascular congestion. SL: 07/17/2013 [facility] Consultation Notes No Data Provided for This Section Discharge Summaries No Data Provided for This Section History and Physicals No Data Provided for This Section Vital Signs Vital Sign Value Date Comments Source Heart Rate 85 09/29/2018 [facility] Temperature Oral (F) 98.3 F 09/29/2018 [facility] Rate 20 09/29/2018 [facility] Systolic (mm Hg) 93 09/29/2018 [facility] Diastolic (mm Hg) 62 09/29/2018 [facility] Temperature Oral (F) 98.1 F 09/29/2018 [facility] Respitory Rate 20 09/29/2018 [facility] Heart Rate 87 09/29/2018 [facility] Systolic (mm Hg) 103 09/29/2018 [facility] Diastolic (mm Hg) 60 09/29/2018 [facility] Systolic (mm Hg) 126 09/29/2018 [facility] Diastolic (mm Hg) 81 09/29/2018 [facility] Temperature Oral (F) 100 F 09/29/2018 [facility] Respitory Rate 20 09/29/2018 [facility] Weight 143.182 09/28/2018 [facility] Height 175.26 cm 09/28/2018 [facility] BMI Calculated 46.61 09/28/2018 [facility] Heart Rate 118 09/28/2018 [facility] Heart Rate 74 08/02/2018 [facility] Temperature Oral (F) 98.5 F 08/02/2018 [facility] Systolic (mm Hg) 118 08/02/2018 [facility] Diastolic (mm Hg) 79 08/02/2018 [facility] Respitory Rate 18 08/02/2018 [facility] Temperature Oral (F) 97.7 F 08/02/2018 [facility] Systolic (mm Hg) 125 08/02/2018 [facility] Diastolic (mm Hg) 74 08/02/2018 [facility] Heart Rate 97 08/02/2018 [facility] Respitory Rate 18 08/02/2018 [facility] Heart Rate 75 08/02/2018 [facility] Systolic (mm Hg) 112 08/02/2018 [facility] Diastolic (mm Hg) 76 08/02/2018 [facility] Respitory Rate 18 08/02/2018 [facility] Temperature Oral (F) 98.2 F 08/02/2018 [facility] Weight 147.273 07/28/2018 [facility] Height 175.26 cm 07/28/2018 [facility] BMI Calculated 47.95 07/28/2018 [facility] Weight 147.273 07/28/2018 [facility] BMI Calculated 55.73 07/28/2018 [facility] Height 162.56 cm 07/28/2018 [facility] Systolic (mm Hg) 103 03/17/2018 [facility] Diastolic (mm Hg) 84 03/17/2018 [facility] Respitory Rate 25 03/17/2018 [facility] Temperature Oral (F) 98.5 F 03/17/2018 [facility] Systolic (mm Hg) 116 03/17/2018 [facility] Diastolic (mm Hg) 82 03/17/2018 [facility] Respitory Rate 21 03/17/2018 [facility] Systolic (mm Hg) 103 03/17/2018 [facility] Diastolic (mm Hg) 60 03/17/2018 [facility] Respitory Rate 17 03/17/2018 [facility] Weight 147.273 03/17/2018 [facility] Heart Rate 101 03/17/2018 [facility] Temperature Oral (F) 98.4 F 03/17/2018 [facility] Systolic (mm Hg) 115 03/03/2018 [facility] Diastolic (mm Hg) 77 03/03/2018 [facility] Respitory Rate 18 03/03/2018 [facility] Temperature Oral (F) 98.1 F 03/03/2018 [facility] Heart Rate 78 03/03/2018 [facility] Respitory Rate 16 03/03/2018 [facility] Heart Rate 84 03/03/2018 [facility] Temperature Oral (F) 98.1 F 03/03/2018 [facility] Systolic (mm Hg) 108 03/03/2018 [facility] Diastolic (mm Hg) 73 03/03/2018 [facility] Weight 147.273 03/03/2018 [facility] Height 175.26 cm 03/03/2018 [facility] BMI Calculated 47.95 03/03/2018 [facility] Temperature Oral (F) 98.4 F 03/03/2018 [facility] Respitory Rate 18 03/03/2018 [facility] Systolic (mm Hg) 133 03/03/2018 [facility] Diastolic (mm Hg) 91 03/03/2018 [facility] Heart Rate 106 03/03/2018 [facility] Systolic (mm Hg) 112 02/11/2018 [facility] Diastolic (mm Hg) 63 02/11/2018 [facility] Respitory Rate 17 02/11/2018 [facility] Systolic (mm Hg) 101 02/10/2018 [facility] Diastolic (mm Hg) 70 02/10/2018 [facility] Respitory Rate 18 02/10/2018 [facility] Temperature Oral (F) 97.9 F 02/10/2018 [facility] Heart Rate 94 02/10/2018 [facility] Weight 148.182 02/10/2018 [facility] Respitory Rate 22 02/10/2018 [facility] Systolic (mm Hg) 130 02/10/2018 [facility] Diastolic (mm Hg) 90 02/10/2018 [facility] Systolic (mm Hg) 121 09/29/2017 [facility] Diastolic (mm Hg) 83 09/29/2017 [facility] Respitory Rate 20 09/29/2017 [facility] Systolic (mm Hg) 114 09/29/2017 [facility] Diastolic (mm Hg) 88 09/29/2017 [facility] Respitory Rate 19 09/29/2017 [facility] Systolic (mm Hg) 137 09/29/2017 [facility] Diastolic (mm Hg) 81 09/29/2017 [facility] Weight 145.455 09/29/2017 [facility] Height 175.26 cm 09/29/2017 [facility] BMI Calculated 47.35 09/29/2017 [facility] Temperature Oral (F) 98.7 F 09/29/2017 [facility] Respitory Rate 20 09/29/2017 [facility] Heart Rate 103 09/29/2017 [facility] Temperature Oral (F) 97.9 F 08/18/2017 [facility] Weight 147.273 08/18/2017 [facility] Respitory Rate 22 08/18/2017 [facility] Systolic (mm Hg) 134 08/18/2017 [facility] Diastolic (mm Hg) 69 08/18/2017 [facility] Heart Rate 108 08/18/2017 [facility] Systolic (mm Hg) 110 07/22/2017 [facility] Diastolic (mm Hg) 70 07/22/2017 [facility] Respitory Rate 16 07/22/2017 [facility] Heart Rate 84 07/22/2017 [facility] Temperature Oral (F) 98.4 F 07/22/2017 [facility] Temperature Oral (F) 98.5 F 07/22/2017 [facility] Heart Rate 90 07/22/2017 [facility] Respitory Rate 16 07/22/2017 [facility] Systolic (mm Hg) 115 07/22/2017 [facility] Diastolic (mm Hg) 75 07/22/2017 [facility] Temperature Oral (F) 98.7 F 07/22/2017 [facility] Height 175.26 cm 07/22/2017 [facility] BMI Calculated 44.4 07/22/2017 [facility] Weight 136.364 07/22/2017 [facility] Respitory Rate 18 07/22/2017 [facility] Heart Rate 105 07/22/2017 [facility] Systolic (mm Hg) 111 07/22/2017 [facility] Diastolic (mm Hg) 73 07/22/2017 [facility] Temperature Oral (F) 98.0 F 03/15/2017 [facility] Heart Rate 97 03/15/2017 [facility] Respitory Rate 16 03/15/2017 [facility] Systolic (mm Hg) 124 03/15/2017 [facility] Diastolic (mm Hg) 79 03/15/2017 [facility] Respitory Rate 16 03/15/2017 [facility] Heart Rate 77 03/15/2017 [facility] Systolic (mm Hg) 116 03/15/2017 [facility] Diastolic (mm Hg) 77 03/15/2017 [facility] Respitory Rate 16 03/15/2017 [facility] Temperature Oral (F) 98.8 F 03/15/2017 [facility] Systolic (mm Hg) 118 03/15/2017 [facility] Diastolic (mm Hg) 65 03/15/2017 [facility] Temperature Oral (F) 99.3 F 03/15/2017 [facility] Heart Rate 94 03/15/2017 [facility] Weight 153.665 03/13/2017 [facility] BMI Calculated 50.03 03/13/2017 [facility] Height 175.26 cm 03/13/2017 [facility] Weight 125 03/12/2017 [facility] BMI Calculated 41.9 03/12/2017 [facility] Height 172.72 cm 03/12/2017 [facility] Systolic (mm Hg) 109 11/05/2016 [facility] Diastolic (mm Hg) 84 11/05/2016 [facility] Temperature Oral (F) 98.2 F 11/05/2016 [facility] Respitory Rate 16 11/05/2016 [facility] Weight 136.364 11/05/2016 [facility] Respitory Rate 18 11/05/2016 [facility] Heart Rate 115 11/05/2016 [facility] Temperature Oral (F) 98.4 F 11/05/2016 [facility] Systolic (mm Hg) 123 11/05/2016 [facility] Diastolic (mm Hg) 74 11/05/2016 [facility] Temperature Oral (F) 98.7 F 05/17/2016 [facility] Respitory Rate 18 05/17/2016 [facility] Systolic (mm Hg) 122 05/17/2016 [facility] Diastolic (mm Hg) 86 05/17/2016 [facility] Heart Rate 82 05/17/2016 [facility] Height 175.26 cm 05/17/2016 [facility] BMI Calculated 44.4 05/17/2016 [facility] Weight 136.364 05/17/2016 [facility] Temperature Oral (F) 98.8 F 05/17/2016 [facility] Heart Rate 102 05/17/2016 [facility] Systolic (mm Hg) 120 05/17/2016 [facility] Diastolic (mm Hg) 84 05/17/2016 [facility] Respitory Rate 20 05/17/2016 [facility] Temperature Oral (F) 98.3 F 05/13/2016 [facility] Respitory Rate 16 05/13/2016 [facility] Heart Rate 97 05/13/2016 [facility] Systolic (mm Hg) 107 05/13/2016 [facility] Diastolic (mm Hg) 56 05/13/2016 [facility] Respitory Rate 16 05/13/2016 [facility] Systolic (mm Hg) 101 05/13/2016 [facility] Diastolic (mm Hg) 70 05/13/2016 [facility] Heart Rate 103 05/13/2016 [facility] BMI Calculated 46.76 05/13/2016 [facility] Weight 143.636 05/13/2016 [facility] Height 175.26 cm 05/13/2016 [facility] Heart Rate 124 05/13/2016 [facility] Respitory Rate 19 05/13/2016 [facility] Temperature Oral (F) 99.3 F 05/13/2016 [facility] Systolic (mm Hg) 121 05/13/2016 [facility] Diastolic (mm Hg) 66 05/13/2016 [facility] Systolic (mm Hg) 122 04/20/2016 [facility] Diastolic (mm Hg) 75 04/20/2016 [facility] Respitory Rate 18 04/20/2016 [facility] Temperature Oral (F) 99.2 F 04/20/2016 [facility] Heart Rate 92 04/20/2016 [facility] Systolic (mm Hg) 110 04/20/2016 [facility] Diastolic (mm Hg) 69 04/20/2016 [facility] Respitory Rate 18 04/20/2016 [facility] Heart Rate 110 04/20/2016 [facility] Temperature Oral (F) 98 F 04/20/2016 [facility] Weight 140.909 04/20/2016 [facility] BMI Calculated 45.87 04/20/2016 [facility] Temperature Oral (F) 98.7 F 04/20/2016 [facility] Respitory Rate 18 04/20/2016 [facility] Systolic (mm Hg) 108 04/20/2016 [facility] Diastolic (mm Hg) 74 04/20/2016 [facility] Heart Rate 114 04/20/2016 [facility] Height 175.26 cm 04/20/2016 [facility] Systolic (mm Hg) 124 01/07/2016 [facility] Diastolic (mm Hg) 66 01/07/2016 [facility] Heart Rate 93 01/07/2016 [facility] Respitory Rate 18 01/07/2016 [facility] Temperature Oral (F) 98.4 F 01/07/2016 [facility] Respitory Rate 18 01/07/2016 [facility] Heart Rate 95 01/07/2016 [facility] Systolic (mm Hg) 130 01/07/2016 [facility] Diastolic (mm Hg) 70 01/07/2016 [facility] Respitory Rate 18 01/07/2016 [facility] Heart Rate 101 01/07/2016 [facility] Systolic (mm Hg) 100 01/07/2016 [facility] Diastolic (mm Hg) 59 01/07/2016 [facility] Weight 143.636 01/07/2016 [facility] Temperature Oral (F) 98.4 F 01/07/2016 [facility] BMI Calculated 48.15 01/07/2016 [facility] Height 172.72 cm 01/07/2016 [facility] Systolic (mm Hg) 126 12/20/2015 [facility] Diastolic (mm Hg) 72 12/20/2015 [facility] Temperature Oral (F) 98.2 F 12/20/2015 [facility] Heart Rate 85 12/20/2015 [facility] Respitory Rate 16 12/20/2015 [facility] Weight 140 12/20/2015 [facility] Height 172.72 cm 12/20/2015 [facility] Temperature Oral (F) 98.3 F 12/20/2015 [facility] BMI Calculated 46.93 12/20/2015 [facility] Heart Rate 105 12/20/2015 [facility] Respitory Rate 18 12/20/2015 [facility] Systolic (mm Hg) 125 12/20/2015 [facility] Diastolic (mm Hg) 77 12/20/2015 [facility] Temperature Oral (F) 98.2 F 06/22/2015 [facility] Respitory Rate 16 06/22/2015 [facility] Heart Rate 93 06/22/2015 [facility] Systolic (mm Hg) 126 06/22/2015 [facility] Diastolic (mm Hg) 87 06/22/2015 [facility] Weight 127.273 06/22/2015 [facility] Systolic (mm Hg) 137 06/22/2015 [facility] Diastolic (mm Hg) 84 06/22/2015 [facility] Respitory Rate 17 06/22/2015 [facility] Heart Rate 112 06/22/2015 [facility] Temperature Oral (F) 98.9 F 06/22/2015 [facility] Height 175.26 cm 06/22/2015 [facility] BMI Calculated 41.44 06/22/2015 [facility] Temperature Oral (F) 98.8 F 08/22/2014 [facility] Respitory Rate 20 08/22/2014 [facility] Heart [...] 122.727 08/21/2014 [facility] BMI Calculated 38.82 08/21/2014 [facility] Heart Rate 84 01/12/2014 [facility] Respitory Rate 18 01/12/2014 [facility] Systolic (mm Hg) 122 01/12/2014 [facility] Diastolic (mm Hg) 72 01/12/2014 [facility] Height 177.8 cm 01/12/2014 [facility] BMI Calculated 40.26 01/12/2014 [facility] Weight 127.273 01/12/2014 [facility] Systolic (mm Hg) 123 01/12/2014 [facility] Diastolic (mm Hg) 72 01/12/2014 [facility] Heart Rate 89 01/12/2014 [facility] Temperature Oral (F) 98.4 F 01/12/2014 [facility] Respitory Rate 18 01/12/2014 [facility] BMI Calculated [...] DC Date Status Source Not Sent Emergency [id number] AYLA SIDDIQUI 04/20/2012 04/20/2012 Discharged [facility] Not Sent Emergency [id number] FRANCK LANDA 04/20/2012 04/21/2012 [facility]charged [facility] Not Sent Inpatient [id number] VALARIE MCQUEEN II 04/22/2012 04/25/2012 [facility]charged [facility] Not Sent DS [id number] ROSA KHAN 04/28/2012 04/28/2012 [facility]charged [facility] Not Sent Emergency [id number] SHERIF LARIOS 07/01/2012 07/02/2012 [facility]charged [facility] Not Sent Emergency [id number] FRANCK LANDA 07/17/2013 07/17/2013 Discharged [facility] [id number] _[id number] Gilbert Feng 07/28/2013 07/29/2013 [facility] Not Sent Emergency [id number] STEPHAN TORRES 08/02/2013 08/02/2013 Discharged [facility] Emergency [facility] [id number] Brown Motley Jr 09/28/2013 09/28/2013 [facility] Emergency Center [id number] Brown Motley Jr 01/12/2014 01/12/2014 [facility] [id number] Alec Magana 08/21/2014 08/22/2014 [facility] [id number] Franck Landa 08/22/2014 08/22/2014 [facility] [id number] Melo Meier 02/07/2015 02/07/2015 [facility] [id number] Kevin Callahan 02/17/2015 02/18/2015 [facility] Outpatient Imaging [facility] Emergency [facility] [id number] Hamida Leonlam 06/22/2015 06/22/2015 [facility] Emergency Center [id number] Mani Marjerad 12/20/2015 12/20/2015 [facility] Emergency [facility] [id number] Carroll Fine 01/07/2016 01/07/2016 [facility] Recurring [id number] Luis Felipe Haddad 03/08/2016 04/07/2016 [facility] Emergency [id number] Smita Pate 04/20/2016 04/20/2016 [facility] Emergency [id number] Jorge Sandoval 05/13/2016 05/13/2016 [facility] Emergency [id number] Alda Burdick 05/17/2016 05/17/2016 [facility] Emergency [id number] Vestaburgelan Felixon 11/05/2016 11/05/2016 [facility] Inpatient [id number] Cliftondestinee Phoenix 03/12/2017 03/15/2017 [facility] Emergency [id number] Franck Jane 07/22/2017 07/22/2017 [facility] Emergency [id number] Ortiz Jesus 08/18/2017 08/18/2017 [facility] Emergency [id number] Luba Crawford 09/29/2017 09/30/2017 [facility] [place] [facility] [id number] Messi Mendez 11/18/2017 11/19/2017 [facility] Emergency [id number] Ortiz Jesus 02/10/2018 02/11/2018 [facility] Emergency [id number] Ortiz Jesus 03/03/2018 03/03/2018 [facility] Emergency [id number] Irvin Rocha 03/17/2018 03/17/2018 [facility] Inpatient [id number] Brown Villeda Jr 07/28/2018 08/03/2018 [facility] Emergency [id number] Zbigniew Zepeda 09/28/2018 09/29/2018 [facility] Procedures Procedure Code Date Perfomer Comments Source section [id number] [facility] Outpatient Imaging [facility] ORIF - Open reduction and internal fixation of fracture<sup>1</sup> [id number] left ankle [facility], [facility] Outpatient Imaging [facility] Assessment and Plan Assessment and Plan Date [...] BID 07/28/18 enoxaparin (Lovenox) 40 mg SUB-Q [id number] 08/01/18 furosemide (Lasix) 20 mg IVP Daily [...] discharged Outpatient pulmonary follow-up Patient okay to [place] home with above recommendations. Zane Vences MD [...] needed for cough. Ordered: Admit/Condition, 07/28/18 3:11:00 [employer], Status: Out Patient with Observation Services, Telemetry Capable Location, Expected LOS: 1 Midnight, Brown Swain MD, Admit MD Review/Approve Yes, Isolation: No Isolation/Standard Precautions, Acute bronchitis with... Chronic back pain PT/ OT, [place], morphine for breakthrough pain Heparin 1 to 2 midnights 08/03/2018 [facility] Extracted from:Title: Discharge Summary * Author: Vilma [...] with patient 5. Prophylaxis: Lovenox, Pepcid 6. [id number] IV fluids, heart healthy diet Deposition: Inpatient [...] above and pain control with as needed [place] and morphine -Asthma and COPD Acute on [...] 1smoking cessation education given, verbalized understanding 07/28/2018 [facility] Social History TypeResponse Alcohol Current, Type Liquor. [...] Yes; Reg Smoking Cessation Counseling No 06/12/2013 [facility] Outpatient [facility] Social History TypeResponse Alcohol Current, Type Liquor. [...] Yes; Reg Smoking Cessation Counseling No 06/12/2013 [facility] Family History No Data Provided for This Section Advance Directives No Data Provided for This Section Functional Status No Data Provided for This Section
--- NOTE | 2019-02-13 15:08 | NUR ---
GOT AN APPT WITH HER PCP
== END 2019-02-13 15:09 | disposition short-term general hospital (02) ==
LOC: ER 14:52
DX: R06.00 Dyspnea, unspecified (principal)

== ENCOUNTER 2019-02-15 13:33 | Inpatient (IN) | payer MEDICARE ==
[~2019-02-15] VITALS: Ht 172.7 cm; Wt 145.1 kg
--- OUTSIDE RECORDS SUMMARY | 2019-02-15 13:40 | XMS REPORT | Continuity of Care Document ---
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 Protocol, Start date: 08/18/17 15:53:00 CDT, Duration: 30 day, Stop date: 09/17/17 15:52:00 CDTNotes: (Same as: M[place]b) Inactive 08/18/2017 [facility] Cyclobenzaprine hydrochloride 10 MG Oral Tablet [Flexeril] 10 mg, PO, TID, PRN Muscle Spasm, X 10 day, # 30 tab, 0 Refill(s) No Longer Active 07/22/2017 [facility] Naproxen 500 MG Oral Tablet [Naprosyn] 500 mg=1 tab, PO, BID, X 7 day, # 14 tab, 0 Refill(s) No Longer Active 07/22/2017 [facility] Valium 10 mg, Route: PO, ONCE, Dosing Weight 136.364, kg, Priority: STAT, Start date: 07/21/17 21:54:00 FLATWORK FOLDER, Stop date: 07/21/17 21:54:00 FLATWORK FOLDER Inactive 07/22/2017 [facility] Ketorolac 60 mg, Route: IM, Drug form: INJ, ONCE, Dosing Weight 136.364, kg, Priority: STAT, Start date: 07/21/17 21:54:00 FLATWORK FOLDER, Stop date: 07/21/17 21:54:00 FLATWORK F[employer]DER Inactive 07/22/2017 [facility] Levofloxacin 750 MG Oral Tablet [Levaquin] 750 mg=1 tab, PO, Q24H, X 10 day, # 10 tab, 0 Refill(s) Active 03/15/2017 [facility] benzonatate 100 mg oral capsule 100 mg=1 cap, PO, TID, PRN Cough, # 20 cap, 0 Refill(s) Active 03/15/2017 [facility] Docusate Sodium 100 MG Oral Capsule [Colace] 200 mg, 2 cap, Route: PO, Drug form: CAP, ONCE, Dosing Weight 153.665, kg, Start date: 03/15/17 10:55:00 CDT, Stop date: 03/15/17 10:55:00 CDTNotes: (Same as: Colace) (Do Not Crush) Inactive 03/15/2017 [facility] magnesium citrate 58.2 MG/ML Oral Solution 300 ml, Route: PO, Drug Form: LIQ, Dosing Weight 153.665, kg, ONCE, Start date: 03/15/17 10:55:00 CDT, Stop date: 03/15/17 10:55:00 CDTNotes: (Same as: Citrate of Magnesia) Concentration: 1.745 gm / 30 mL Inactive 03/15/2017 [facility] remove patch Route: TOP, Bedtime, Drug form: ERFILM, Start date: 03/14/17 21:00:00 CDT, Duration: 30 day, Stop date: 04/12/17 21:00:00 CDTNotes: Remove patch 12 hours after application each day. No Longer Active 03/15/2017 [facility] Lidocaine 0.05 MG/MG Transdermal Patch 1 patch, Route: TOP, Daily, Drug form: FILM, Start date: 03/14/17 11:00:00 CDT, Duration: 30 day, Stop date: 04/13/17 9:00:00 CDT No Longer Active 03/14/2017 [facility] WAIT for vancomycin trough draw prior to giving next dose WAIT for vancomycin trough draw prior to giving next dose, reminder, Drug form: MISC, Route: MISC, ONCE, 03/14/17 7:30:00 CDT, Stop date: 03/14/17 7:30:00 CDT Inactive 03/14/2017 [facility] WAIT for vancomycin trough draw prior to giving next dose WAIT for vancomycin trough draw prior to giving next dose, reminder, Drug form: MISC, Route: MISC, ONCE, 03/14/17 5:30:00 CDT, Stop date: 03/14/17 5:30:00 CDT Inactive 03/14/2017 [facility] Lovenox 40 mg, 0.4 mL, Route: SUB-Q, Drug form: INJ, Daily, Dosing Weight 153.665, kg, Start date: 03/13/17 17:00:00 CDT, Duration: 30 day, Stop date: 04/11/17 17:00:00 CDTNotes: (Same as: Lovenox) No Longer Active 03/13/2017 [facility] potassium chloride 20 mEq oral tablet, extended release 40 mEq, 2 tab, Route: PO, Drug form: ERTAB, ONCE, Dosing Weight 153.665, kg, Start date: 03/13/17 16:35:00 CDT, Stop date: 03/13/17 16:35:00 CDTNotes: (Same as: K-Dur 20) "Do Not Crush" With food and full glass of water Inactive 03/13/2017 [facility] Docusate 100 mg, 1 cap, Route: PO, Drug form: CAP, BID, Dosing Weight 125, kg, Start date: 03/13/17 9:00:00 CDT, Duration: 30 day, Stop date: 04/11/17 17:00:00 CDTNotes: (Same as: Colace) (Do Not Crush) No Longer Active 03/13/2017 [facility] budesonide-formoterol 160 mcg-4.5 mcg/inh inhalation aerosol with adapter 2 inhalation, Route: INHALATION, Drug Form: AERO/A, BID, Start date: 03/13/17 9:00:00 CDT, Duration: 30 day, Stop date: 04/11/17 17:00:00 CDTNotes: (Same as: Symbicort) WASTE: Aerosol - Return to Pharmacy No Longer Active 03/13/2017 [facility] Advair Diskus 500 mcg-50 mcg inhalation powder 1 puff, Route: INHALATION, Drug Form: AERO, Dosing Weight 125, kg, BID, Start date: 03/13/17 9:00:00 CDT, Duration: 30 day, Stop date: 04/11/17 17:00:00 CDT No Longer Active 03/13/2017 [facility] pneumococcal capsular polysaccharide type 1 vaccine / pneumococcal capsular polysaccharide type 10A vaccine / pneumococcal capsular polysaccharide type 11A vaccine / pneumococcal capsular polysaccharide type 12F vaccine / pneumococcal capsular polysacchar 0.5 mL, Route: IM, Drug Form: INJ, Daily, Start date: 03/13/17 9:00:00 CDT, Duration: 1 doses or times, Stop date: 03/13/17 9:00:00 CDTNotes: (Same as: Pneumovax 23) Refrigerate Inactive 03/13/2017 [facility] vancomycin 1.25 gm, 250 mL, Route: IVPB, Drug form: INJ, ABXQ8H, Start date: 03/13/17 5:00:00 CDT, Duration: 30 day, Stop date: 04/12/17 0:00:00 CDT, ABX Indication: PneumoniaNotes: TIME CRITICAL MEDICATION Same as: Vancocin-NS (premixed) Infusion rate 2001 mg: infuse over 2.5 hours No Longer Active 03/13/2017 [facility] Albuterol 0.833 MG/ML / Ipratropium [place] 0.167 MG/ML Inhalant Solution [DuoNeb] 3 mL, Route: NEB, Drug Form: SOLN, Dosing Weight 125, kg, RQ6H, Start date: 03/13/17 2:00:00 CDT, Duration: 30 day, Stop date: 04/11/17 20:00:00 CDTNotes: (Same as: Duoneb) No Longer Active 03/13/2017 [facility] Zosyn 3.375 gm, Route: IVPB, ABXQ8H, Dosing Weight 125, kg, Start date: 03/13/17 2:00:00 CDT, Duration: 5 day, Stop date: 03/17/17 18:00:00 CDT, ABX Indication: PneumoniaNotes: (Same as: Zosyn) Dosing based on Piperacillin component MEDICATION WASTE Product Size: 3375 mg Product Wasted: ___ mg No Longer Active 03/13/2017 [facility] heparin 7,500 unit, 1.5 mL, Route: SUB-Q, Drug form: INJ, Q8H, Dosing Weight 125, kg, Consider for obese patients, Start date: 03/13/17 0:00:00 CDT, Duration: 30 day, Stop date: 04/11/17 16:00:00 CDTNotes: porcine heparin Inactive 03/13/2017 [facility] Benadryl 25 mg, 0.5 mL, Route: IV, Drug form: INJ, Q6H, Dosing Weight 153.665, kg, PRN as needed for allergy symptoms, Start date: 03/12/17 23:37:00 CDT, Duration: 30 day, Stop date: 04/11/17 23:36:00 CDTNotes: (Same as: Benadryl) No Longer Active 03/13/2017 [facility] Singulair 10 mg, 1 tab, Route: PO, Drug form: TAB, Bedtime, Dosing Weight 125, kg, Start date: 03/12/17 21:00:00 CDT, Duration: 30 day, Stop date: 04/10/17 21:00:00 CDTNotes: (Same as:Singulair) No Longer Active 03/13/2017 [facility] Vancomycin 1 ea, Route: MISC, ONCALL, Dosing Weight 125, kg, Start date: 03/12/17 21:00:00 CDT, day, Stop date: 03/12/17 21:00:00 CDT, Pharmacy to dose, ABX Indication: Pneumonia Inactive 03/13/2017 [facility] vancomycin 1.5 gm, 250 mL, Route: IVPB, Drug form: INJ, ONCE, Start date: 03/12/17 21:00:00 CDT, Stop date: 03/12/17 21:00:00 CDT, ABX Indication: PneumoniaNotes: TIME CRITICAL MEDICATION Same as: Vancocin-NS (pre mixed) Infusion rate 2001 mg: infuse over 2.5 hours Inactive 03/13/2017 [facility] Trazodone 50 mg, 1 tab, Route: PO, Drug form: TAB, Bedtime, Dosing Weight 153.665, kg, PRN Insomnia, Start date: 03/12/17 20:33:00 CDT, Duration: 30 day, Stop date: 04/11/17 20:32:00 CDTNotes: (Same As: Desyrel) No Longer Active 03/13/2017 [facility] Tessalon Perles 100 mg, 1 cap, Route: PO, Drug form: CAP, TID, Dosing Weight 153.665, kg, PRN Cough, Start date: 03/12/17 20:32:00 CDT, Duration: 30 day, Stop date: 04/11/17 20:31:00 CDTNotes: (Same As: Tessalon Per les) "Do Not Crush" No Longer Active 03/13/2017 [facility] senna 8.6 mg oral tablet 8.6 mg, 1 tab, Route: PO, Drug Form: TAB, Dosing Weight 153.665, kg, BID, PRN Constipation, Start date: 03/12/17 20:32:00 CDT, Duration: 30 day, Stop date: 04/11/17 20:31:00 CDTNotes: (Same as: Senokot) No Longer Active 03/13/2017 [facility] Acetaminophen 325 MG / Hydrocodone Bitartrate 10 MG Oral Tablet [[place] 10/325] 1 tab, Route: PO, Drug Form: TAB, Dosing Weight 125, kg, Q6H, PRN Pain Score 4-6, Start date: 03/12/17 20:30:00 CDT, Duration: 30 day, Stop date: 04/11/17 20:29:00 CDTNotes: Do not exceed 4gm/day of acetaminophen. (Same as: [place] 325/10) No Longer Active 03/13/2017 [facility] Morphine 2 mg, 1 mL, Route: IVP, Drug form: SOLN, Q4H, Dosing Weight 125, kg, PRN Pain Score 7-10, Start date: 03/12/17 20:29:00 CDT, Duration: 30 day, Stop date: 04/11/17 20:28:00 CDT No Longer Active 03/13/2017 [facility] Ondansetron 4 mg, 2 mL, Route: IVP, Drug form: INJ, Q6H, Dosing Weight 125, kg, PRN Nausea & Vomiting, Start date: 03/12/17 20:29:00 CDT, Duration: 30 day, Stop date: 04/11/17 20:28:00 CDTNotes: (Same as: [place]) MEDICATION WASTE Product Size: 4 mg Product Wasted: ___ mg No Longer Active 03/13/2017 [facility] Acetaminophen 650 mg, 2 tab, Route: PO, Drug form: TAB, Q4H, Dosing Weight 125, kg, PRN Pain 1-3/Temp > 100.4 F, Start date: 03/12/17 20:29:00 CDT, Duration: 30 day, Stop date: 04/11/17 20:28:00 CDTNotes: Do not e xceed 4 gm/day. (Same as: Tylenol) No Longer Active 03/13/2017 [facility] Acetaminophen 325 MG / Hydrocodone Bitartrate 5 MG Oral Tablet 1 tab, Route: PO, Dosing Weight 125, kg, Q4H, PRN Pain Score 4-6, Start date: 03/12/17 20:29:00 CDT, Duration: 30 day, Stop date: 04/11/17 20:28:00 CDT Inactive 03/13/2017 [facility] Advair Diskus 500 mcg-50 mcg inhalation powder 1 puff, INHALATION, BID, 0 Refill(s) Active 03/13/2017 [facility] ibuprofen 800 mg oral tablet 800 mg=1 tab, PO, BID, PRN Pain Score 1-5, 0 Refill(s) Active 03/13/2017 [facility] naproxen sodium 550 mg oral tablet 550 mg=1 tab, PO, Daily, 0 Refill(s) Active 03/13/2017 [facility] Sodium Chloride 0.9% (Bolus) IV 1,000 mL, 1000 ml/hr, Infuse Over: 1 hr, Route: IV, 1,000, Drug form: INJ, ONCE, Priority: STAT, Dosing Weight 125 kg, Start date: 03/12/17 18:52:00 CDT, Duration: 1 doses or times, Stop date: 03/12/17 18:52:00 CDT Inactive 03/12/2017 [facility] Vancomycin 1,000 mg, Route: IVPB, ONCE, Dosing Weight 125, kg, Priority: STAT, Start date: 03/12/17 17:25:00 CDT, Duration: 1 doses or times, Stop date: 03/12/17 17:25:00 CDT, ABX Indication: BacteremiaNotes: TIME CRITICAL MEDICATION (Same As: Vancocin) Infusion rate 2001 mg: infuse over 2.5 hours MEDICATION WASTE Product Size: 1000 mg Product Wasted: ___ mg Inactive 03/12/2017 [facility] Piperacillin / tazobactam 3.375 gm, Route: IVPB, ONCE, Dosing Weight 125, kg, Priority: STAT, Start date: 03/12/17 17:25:00 CDT, Duration: 1 doses or times, Stop date: 03/12/17 17:25:00 CDT, ABX Indication: BacteremiaNotes: (Same as: Zosyn) Dosing based on Piperacillin component MEDICATION WASTE Product Size: 3375 mg Product Wasted: ___ mg Inactive 03/12/2017 [facility] Ondansetron 4 mg, 2 mL, Route: IVP, Drug form: INJ, ONCE, Dosing Weight 125, kg, Priority: STAT, Start date: 03/12/17 15:57:00 CDT, Stop date: 03/12/17 15:57:00 CDTNotes: (Same as: Zofran) MEDICATION WASTE Product Size: 4 mg Product Wasted: ___ mg Inactive 03/12/2017 [facility] Morphine 4 mg, 1 mL, Route: IVP, Drug form: SOLN, ONCE, Dosing Weight 125, kg, Priority: STAT, Start date: 03/12/17 15:57:00 CDT, Stop date: 03/12/17 15:57:00 CDTNotes: (Same as:MORPhine Sulfate) Inactive 03/12/2017 [facility] Acetaminophen 300 MG / Codeine Phosphate 30 MG Oral Tablet [Tylenol with Codeine #3] 1 - 2 tab, PO, Q6H, PRN Pain, X 4 day, # 20 tab, 0 Refill(s) Active 11/05/2016 [facility] Morphine 4 mg, 1 mL, Route: IVP, Drug form: SOLN, ONCE, Dosing Weight 136.364, kg, Priority: STAT, Start date: 11/04/16 22:50:00 CDT, Stop date: 11/04/16 22:50:00 CDTNotes: (Same as:MORPhine Sulfate) No Longer Active 11/05/2016 [facility] Saline Flush 0.9% 10 mL, Route: IVP, Drug Form: INJ, Dosing Weight 136.364, kg, PRN, PRN Line Flush, Start date: 11/04/16 22:36:00 CDT, Duration: 30 day, Stop date: 12/04/16 22:35:00 CDTNotes: (Same as: BD Posiflush) No Longer Active 11/05/2016 [facility] Ketorolac Tromethamine 10 MG Oral Tablet 10 mg=1 tab, PO, Q6H, PRN Pain Score 6-10, X 3 day, # 12 tab, 0 Refill(s) Active 05/17/2016 [facility] Ketorolac 15 mg, Route: IVP, Drug form: INJ, ONCE, Dosing Weight 136.364, kg, Priority: STAT, Start date: 05/17/16 3:24:00 FLATWORK FOLDER, Stop date: 05/17/16 3:24:00 FLATWORK FOLDER Inactive 05/17/2016 [facility] Acetaminophen 300 MG / Codeine Phosphate 30 MG Oral Tablet [Tylenol with Codeine #3] 1 - 2 tab, PO, Q6H, PRN Pain, X 4 day, # 32 tab, 0 Refill(s) Active 05/13/2016 [facility] Motrin 800 mg, Route: PO, Drug form: TAB, ONCE, Dosing Weight 143.636, kg, Priority: STAT, Start date: 05/13/16 13:14:00 FLATWORK FOLDER, Stop date: 05/13/16 13:14:00 FLATWORK FOLDER Inactive 05/13/2016 [facility] Morphine 4 mg, Route: IVP, ONCE, Dosing Weight 143.636, kg, Priority: STAT, Start date: 05/13/16 11:32:00 FLATWORK FOLDER, Stop date: 05/13/16 11:32:00 FLATWORK FOLDER Inactive 05/13/2016 [facility] Morphine 4 mg, Route: IVP, ONCE, Dosing Weight 143.636, kg, Priority: STAT, Start date: 05/13/16 10:06:00 FLATWORK FOLDER, Stop date: 05/13/16 10:06:00 FLATWORK FOLDER Inactive 05/13/2016 [facility] Zofran 4 mg, Route: IVP, Drug form: INJ, ONCE, Dosing Weight 143.636, kg, Priority: STAT, Start date: 05/13/16 10:06:00 FLATWORK FOLDER, Stop date: 05/13/16 10:06:00 FLATWORK FOLDER Inactive 05/13/2016 [facility] Tylenol 1,000 mg, 2 tab, Route: PO, Drug form: TAB, ONCE, Dosing Weight 143.636, kg, Start date: 05/13/16 9:13:00 FLATWORK FOLDER, Stop date: 05/13/16 9:13:00 CSTNotes: Max acetaminophen 4000 mg/day (4 gm/day). (Same as: Tylenol Extra Strength) Inactive 05/13/2016 [facility] Lactated Ringers 1,000 mL 1,000 mL, Rate: 999 ml/hr, Infuse over: 1 hr, Route: IV, Dosing Weight 143.636 kg, Total Volume: 1,000, Start date: 05/13/16 9:12:00 FLATWORK FOLDER, Duration: 1 hr, Stop date: 05/13/16 10:11:00 FLATWORK FOLDER Inactive 05/13/2016 [facility] Levofloxacin 750 mg, 150 mL, Route: IVPB, Drug form: SOLN, ONCE, Dosing Weight 143.636, kg, Priority: STAT, Start date: 05/13/16 9:11:00 FLATWORK FOLDER, Stop date: 05/13/16 9:11:00 CSTNotes: (Same as:Levaquin) Inactive 05/13/2016 [facility] Saline Flush 0.9% 10 mL, Route: IVP, Drug Form: INJ, Dosing Weight 143.636, kg, PRN, PRN Line Flush, Start date: 05/13/16 9:11:00 FLATWORK FOLDER, Duration: 30 day, Stop date: 06/12/16 9:10:00 CSTNotes: (Same as: BD Posiflush) Inactive 05/13/2016 [facility] Acetaminophen 300 MG / Codeine Phosphate 60 MG Oral Tablet [Tylenol with Codeine #4] 1 tab, PO, Q4H, PRN Pain, X 7 day, # 12 tab, 0 Refill(s) Active 04/20/2016 [facility] amoxicillin 500 mg oral tablet 500 mg=1 tab, PO, TID, X 10 day, # 30 tab, 0 Refill(s) Active 04/20/2016 [facility] Acetaminophen 325 MG / Hydrocodone Bitartrate 10 MG Oral Tablet [[place] 10/325] 1 tab, Route: PO, Drug Form: TAB, Dosing Weight 140.909, kg, ONCE, STAT, Start date: 04/19/16 21:59:00 FLATWORK FOLDER, Stop date: 04/19/16 21:59:00 CSTNotes: Do not exceed 4gm/day of acetaminophen. (Same as: [place] 325/10) Inactive 04/20/2016 [facility] Sodium Chloride 0.154 MEQ/ML Injectable Solution 1,000 mL, 1,000 ml/hr, Infuse Over: 1 hr, Route: IV, 1,000, Drug form: INJ, ONCE, Priority: STAT, Dosing Weight 140.909 kg, Start date: 04/19/16 21:59:00 FLATWORK FOLDER, Duration: 1 doses or times, Stop date: 04/19/16 21:59:00 FLATWORK FOLDER Inactive 04/20/2016 [facility] Ondansetron 4 MG Disintegrating Tablet [Zofran] 4 mg=1 tab, PO, Q8H, PRN as needed for nausea/vomiting, X 3 day, # 12 tab, 0 Refill(s) Active 01/07/2016 [facility] Acetaminophen 300 MG / butalbital 50 MG / Caffeine 40 MG Oral Capsule [Fioricet] 1 cap, PO, Q4H, PRN PRN Headache, Do not exceed 6 capsules in 24 hours, X 5 day, # 30 cap, 0 Refill(s) Active 01/07/2016 [facility] Sodium Chloride 0.154 MEQ/ML Injectable Solution 1,000 mL, 1,000 ml/hr, Infuse Over: 1 hr, Route: IV, ONCE, Priority: STAT, Dosing Weight 143.636 kg, Start date: 01/07/16 2:32:00 CDT, Duration: 1 doses or times, Stop date: 01/07/16 2:32:00 CDT Inactive 01/07/2016 [facility] Metoclopramide 10 mg, Route: IVP, Drug form: INJ, ONCE, Dosing Weight 143.636, kg, Priority: STAT, Start date: 01/07/16 2:32:00 CDT, Stop date: 01/07/16 2:32:00 CDT Inactive 01/07/2016 [facility] Diphenhydramine 25 mg, Route: IVP, ONCE, Dosing Weight 143.636, kg, Priority: STAT, Start date: 01/07/16 2:32:00 CDT, Stop date: 01/07/16 2:32:00 CDT Inactive 01/07/2016 [facility] Sodium Chloride 0.154 MEQ/ML Injectable Solution 1,000 mL, 1,000 ml/hr, Infuse Over: 1 hr, Route: IV, 1,000, Drug form: INJ, ONCE, Priority: STAT, Dosing Weight 140 kg, Start date: 12/20/15 2:16:00 CDT, Duration: 1 doses or times, Stop date: 12/20/15 2:16:00 CDT Inactive 12/20/2015 [facility] Sulfamethoxazole 800 MG / Trimethoprim 160 MG Oral Tablet [Bactrim] 1 tab, PO, BID, X 10 day, # 20 tab, 0 Refill(s) Active 06/22/2015 [facility] Morphine 4 mg, Route: IM, Drug form: INJ, ONCE, Dosing Weight 127.273, kg, Priority: STAT, Start date: 06/22/15 9:53:00, Stop date: 06/22/15 9:53:00 Inactive 06/22/2015 [facility] Ibuprofen 800 MG Oral Tablet [Motrin] 800 mg=1 tab, PO, Q8H, Pain, Take with food, # 15 tab, 0 Refill(s)Special Instructions: Take with food Active 08/22/2014 [facility] Cyclobenzaprine hydrochloride 10 MG Oral Tablet [Flexeril] 10 mg=1 tab, PO, BID, # 6 tab, 0 Refill(s) Active 08/22/2014 [facility] Flexeril 10 mg, 1 tab, Route: PO, Drug form: TAB, ONCE, Dosing Weight 122.727, kg, Priority: STAT, Start date: 08/22/14 12:01:00, Stop date: 08/22/14 12:01:00Notes: (Same As: Flexeril) Inactive 08/22/2014 [facility] Acetaminophen 325 MG / Hydrocodone Bitartrate 5 MG Oral Tablet [[place] 5/325] 1 tab, Route: PO, Drug Form: TAB, Dosing Weight 122.727, kg, ONCE, STAT, Start date: 08/22/14 12:01:00, Stop date: 08/22/14 12:01:00Notes: (Same as: [place] 325/5) Do not exceed 4gm/day of acetaminophen. Inactive 08/22/2014 [facility] cyclobenzaprine 10 mg oral tablet 10 mg=1 tab, PO, TID, for spasm, # 30 tab, 0 Refill(s) Active 01/12/2014 [facility] ibuprofen 800 mg oral tablet 800 mg=1 tab, PO, Q8H, Pain, Take with food, # 30 tab, 0 Refill(s)Special Instructions: Take with food Active 01/12/2014 [facility] Motrin 800 mg, Route: PO, Drug form: TAB, ONCE, Dosing Weight 127.273, kg, Priority: STAT, Start date: 01/12/14 9:36:00, Stop date: 01/12/14 9:36:00 Inactive 01/12/2014 [facility] Flexeril 10 mg, Route: PO, ONCE, Dosing Weight 127.273, kg, Priority: STAT, Start date: 01/12/14 8:12:00, Stop date: 01/12/14 8:12:00 Inactive 01/12/2014 [facility] Motrin 800 mg, Route: PO, Drug form: TAB, ONCE, Dosing Weight 127.273, kg, Priority: STAT, Start date: 01/12/14 8:12:00, Stop date: 01/12/14 8:12:00 Inactive 01/12/2014 [facility] albuterol 0.083% inhalation solution 2.49 mg=3 mL, NEB, Q6H, # 120 ea, 0 Refill(s) Active s 07/17/2013 [facility] predniSONE 20 mg oral tablet 40 mg=2 tab, PO, Daily, # 8 tab, 0 Refill(s) Active 07/17/2013 [facility] Tylenol with Codeine 120 mg-12 mg/5 mL oral liquid 15 mL, PO, TID, pain, # 120 mL, 0 Refill(s) Active s 07/17/2013 [facility] Azithromycin 5 Day Dose Pack 250 mg oral tablet 250 mg, PO, Daily, Take 2 tablets by mouth the first day then 1 tablet by mouth days 2- 5, # 6 tab, 0 Refill(s)Take 2 tablets by mouth the first day then 1 tablet by mouth days 2-5 Active s 07/17/2013 [facility] Saline Flush 0.9% 5 mL, Route: IVP, Drug Form: INJ, Dosing Weight 140.909, kg, PRN, PRN Line Flush, Start date: 07/17/13 11:07:00, Duration: 1 day, Stop date: 07/18/13 11:06:00(Same as: BD Posiflush) Inactive s 07/17/2013 [facility] methylPREDNISolone SODium SUCCinate 125 mg, Route: IVP, ONCE, Dosing Weight 140.909, kg, Priority: STAT, Start date: 07/17/13 11:07:00, Stop date: 07/17/13 11:07:00 Inactive s 07/17/2013 [facility] DuoNeb inhalation solution 3 ml, Route: INHALATION, Drug Form: SOLN, Dosing Weight 140.909, kg, PRN, PRN Respiratory Protocol, Start date: 07/17/13 10:54:00, Duration: 1 doses or times, Stop date: Limited # of times(Same as: Duoneb) Inactive s 07/17/2013 [facility] [place] 5/325 oral tablet 1 tab, PO, Q4H, PRN, 20 tab, for pain, Substitution Allowed, Maintenance, TAB PO Active [place] 07/02/2012 [facility] clindamycin 150 mg oral capsule 150 mg, 1 cap, PO, Q6H, 20 cap, Substitution Allowed, CAP PO Active [place] 07/02/2012 [facility] Saline Flush 0.9% 5 mL, Route: IVP, Drug Form: INJ, Dosing Weight 136.364, kg, Q8H, PRN Line Flush, Start date: 07/01/12 22:10:00, Duration: 30 day, Stop date: 07/31/12 22:09:00, Administer at least once every 8 hoursAdminister at least once every 8 hours IVP No Longer Active [place] 07/02/2012 [facility] Demerol HCl 50 mg, 1 mL, Route: IM, Drug form: INJ, ONCE, Dosing Weight 136.364, kg, Start date: 04/28/12 16:20:00, Stop date: 04/28/12 16:20:00 IM No Longer Active [place] 04/28/2012 [facility] Dilaudid 0.5 mg, 0.25 mL, Route: IVP, Drug form: INJ, ONCE, Dosing Weight 136.364, kg, Start date: 04/28/12 15:37:00, Stop date: 04/28/12 15:37:00 IVP Active [place] 04/28/2012 [facility] acetaminophen 1,000 mg, 100 mL, Route: IVPB, Drug form: INJ, ONCE, Dosing Weight 136.364, kg, Start date: 04/28/12 15:29:00, Stop date: 04/28/12 15:29:00 IVPB Active 04/28/2012 [facility] Sublimaze 50 microgram, Route: IRRIG, ONCE, Dosing Weight 136.364, kg, Start date: 04/28/12 15:29:00, Stop date: 04/28/12 15:29:00 IRRIG No Longer Active Sandie 04/28/2012 [facility] cefazolin + Sodium Chloride 0.9% IV 100 mL 1 gm, Route: IVPB, PRE OP, Start date: 04/28/12 13:00:00, Duration: 12 hr, Stop date: 04/29/12 0:59:00 IVPB No Longer Active Federico 04/28/2012 [facility] lidocaine 0.1 mL, Route: IV, Drug form: INJ, ONCALL, Start date: 04/28/12 9:00:00, Duration: 12 hr, Stop date: 04/28/12 20:59:00 IV No Longer Active [place] 04/28/2012 [facility] Lactated Ringers Injection IV 1,000 mL 1,000 mL, Rate: 100 ml/hr, Infuse over: 10 hr, Route: IV, kg, Total Volume: 1,000, Start date: 04/28/12 9:00:00, Duration: 12 hr, Stop date: 04/28/12 20:59:00 IV No Longer Active [place] 04/28/2012 [facility] predniSONE 40 mg, 2 tab, Route: PO, Drug form: TAB, Daily, Start date: 04/26/12 9:00:00, Duration: 30 day, Stop date: 05/25/12 9:00:00 PO No Longer Active [place] 04/26/2012 [facility] Singulair 10 mg, 1 tab, Route: PO, Drug form: TAB, Daily, Start date: 04/25/12 21:00:00, Duration: 30 day, Stop date: 05/24/12 21:00:00 PO No Longer Active [place] 04/26/2012 [facility] acetaminophen-oxycodone 325 mg-10 mg oral tablet 1 tab, Route: PO, Drug Form: TAB, Q4H, PRN Other -See Comment, Start date: 04/25/12 10:35:00, Duration: 30 day, Stop date: 05/25/12 10:34:00 PO No Longer Active Eunice 04/25/2012 [facility] Lovenox 40 mg, 0.4 mL, Route: SUB-Q, Drug form: INJ, Daily, Start date: 04/25/12 9:00:00, Duration: 30 day, Stop date: 05/24/12 9:00:00 SUB-Q No Longer Active [place] 04/25/2012 [facility] Ambien 5 mg, 1 tab, Route: PO, Drug form: TAB, Bedtime, PRN Sleep, Start date: 04/24/12 20:36:00, Duration: 30 day, Stop date: 05/24/12 20:35:00 PO No Longer Active [place] 04/25/2012 [facility] Protonix 40 mg, 1 tab, Route: PO, Drug form: ECTAB, BID- Before Meals, Start date: 04/23/12 16:30:00, Duration: 30 day, Stop date: 05/23/12 7:30:00 PO No Longer Active Latasha 04/23/2012 [facility] Esgic 2 tab, Route: PO, Drug Form: TAB, ONCE, Start date: 04/23/12 12:00:00, Stop date: 04/23/12 12:00:00 PO No Longer Active [place] 04/23/2012 [facility] ferrous sulfate 325 mg, 1 tab, Route: PO, Drug form: TAB, BID, Start date: 04/23/12 12:00:00, Duration: 30 day, Stop date: 05/23/12 9:00:00 PO No Longer Active [place] 04/23/2012 [facility] Sodium Chloride 0.9% IV 1,000 mL 1,000 mL, Rate: 125 ml/hr, Infuse over: 8 hr, Route: IV, kg, Total Volume: 1,000, Start date: 04/23/12 12:00:00, Duration: 30 day, Stop date: 05/23/12 11:59:00 IV No Longer Active [place] 04/23/2012 [facility] multivitamin 1 tab, Route: PO, Drug Form: TAB, BID, Start date: 04/23/12 12:00:00, Duration: 3 doses or times, Stop date: 04/24/12 17:00:00 PO No Longer Active [place] 04/23/2012 [facility] docusate sodium 100 mg oral capsule 100 mg, 1 cap, Route: PO, Drug form: CAP, BID, PRN Constipation, Start date: 04/23/12 11:14:00, Duration: 30 day, Stop date: 05/23/12 11:13:00 PO No Longer Active [place] [facility]: PO, Drug Form: TAB, Q6H, PRN Pain, Start date: 04/23/12 11:13:00, Duration: 30 day, Stop date: 05/23/12 11:12:00 PO No Longer Active [place] 04/23/2012 [facility] Esgic 1 tab, Route: PO, Drug Form: TAB, Q6H, PRN Pain, Start date: 04/23/12 11:12:00, Duration: 30 day, Stop date: 05/23/12 11:11:00 PO No Longer Active [place] 04/23/2012 [facility] methylPREDNISolone 60 mg, 0.96 mL, Route: IV, Drug form: INJ, Q8H, Start date: 04/23/12 9:00:00, Duration: 3 doses or times, Stop date: 04/24/12 1:00:00 IV No Longer Active Lili 04/23/2012 [facility] fluticasone-salmeterol 250 mcg-50 mcg MDI 1 inhalation, Route: INHALER, Drug Form: AERO, RBID, Start date: 04/22/12 20:00:00, Duration: 30 day, Stop date: 05/22/12 8:00:00 INHALER No Longer Active Lili 04/23/2012 [facility] Lovenox 140 mg, 0.93 mL, Route: SUB-Q, Drug form: INJ, [id number], Start date: 04/22/12 17:00:00, Duration: 30 day, Stop date: 05/22/12 5:00:00 SUB-Q No Longer Active [place] 04/22/2012 [facility] methylPREDNISolone 40 mg, 1 mL, Route: IV, Drug form: INJ, Q8H, Start date: 04/22/12 16:00:00, Duration: 30 day, Stop date: 05/22/12 8:00:00 IV No Longer Active [facility] 04/22/2012 [facility] Zithromax IVPB, 166.67 ml/hr, [id number], Start date: 04/22/12 14:00:00, Duration: 30, 250 ml IVPB No Longer Active [facility] 04/22/2012 [facility] Rocephin + Sodium Chloride 0.9% IV 100 mL 1 gm, Route: IVPB, [id number], Start date: 04/22/12 13:00:00, Duration: 30 day, Stop date: 05/21/12 13:00:00 IVPB No Longer Active [facility] 04/22/2012 [facility] DuoNeb inhalation solution 3 mL, Route: NEB, Drug Form: SOLN, RQ4H, Start date: 04/22/12 11:00:00, Duration: 30 day, Stop date: 05/22/12 7:00:00 NEB No Longer Active [place] 04/22/2012 [facility] K-Dur 10 30 mEq, 3 tab, Route: PO, Drug form: ERTAB, Q1H, Start date: 04/22/12 9:00:00, Duration: 2 doses or times, Stop date: 04/22/12 10:00:00 PO No Longer Active [place] 04/22/2012 [facility] Levaquin 750 mg, 150 mL, Route: IV, Drug form: SOLN, [id number], Start date: 04/22/12 9:00:00, Duration: 30 day, Stop date: 05/21/12 9:00:00 IV No Longer Active Lili 04/22/2012 [facility] Coumadin 7.5 mg, 1 tab, Route: PO, Drug form: TAB, Q5PM, Start date: 04/22/12 9:00:00, Duration: 30 day, Stop date: 05/21/12 17:00:00 PO No Longer Active [place] 04/22/2012 [facility] Protonix 40 mg, 1 tab, Route: PO, Drug form: ECTAB, Before Dinner, Start date: 04/22/12 9:00:00, Duration: 30 day, Stop date: 05/21/12 16:30:00 PO No Longer Active [place] 04/22/2012 [facility] lidocaine-prilocaine topical 1 appl, Route: TOP, ONCALL, Drug form: CRM, Start date: 04/22/12 9:00:00, Duration: 2 day, Stop date: 04/24/12 8:59:00 TOP No Longer Active [place] 04/22/2012 [facility] Tessalon Perles 200 mg, 2 cap, Route: PO, Drug form: CAP, Q8H-06, Start date: 04/22/12 9:00:00, Duration: 30 day, Stop date: 05/22/12 6:00:00 PO No Longer Active [place] 04/22/2012 [facility] methylPREDNISolone 100 mg, 1.6 mL, Route: IV, Drug form: INJ, Q8H, Start date: 04/22/12 9:00:00, Duration: 3 doses or times, Stop date: 04/23/12 1:00:00 IV No Longer Active [place] 04/22/2012 [facility] Zofran 4 mg, 2 mL, Route: IVP, Drug form: INJ, Q6H, PRN Nausea, Priority: STAT, Start date: 04/22/12 8:46:00, Duration: 30 day, Stop date: 05/22/12 8:45:00 IVP No Longer Active [place] 04/22/2012 [facility] acetaminophen-hydrocodone 325 mg-10 mg oral tablet 1 tab, Route: PO, Drug Form: TAB, Q6H, PRN Pain, Start date: 04/22/12 8:46:00, Duration: 30 day, Stop date: 05/22/12 8:45:00 PO No Longer Active [place] 04/22/2012 [facility] tramadol 50 mg oral tablet 100 mg, 2 tab, Route: PO, Drug form: TAB, Q6H, PRN Pain, Start date: 04/22/12 8:46:00, Duration: 30 day, Stop date: 05/22/12 8:45:00 PO No Longer Active [place] 04/22/2012 [facility] morphine Sulfate 2 mg, 1 mL, Route: IV, Drug form: INJ, Q4H, PRN Pain, Start date: 04/22/12 8:45:00, Duration: 30 day, Stop date: 05/22/12 8:44:00 IV No Longer Active [place] 04/22/2012 [facility] Xanax 0.5 mg, 1 tab, Route: PO, Drug form: TAB, QID, PRN Anxiety, Start date: 04/22/12 8:38:00, Duration: 30 day, Stop date: 05/22/12 8:37:00 PO No Longer Active [place] 04/22/2012 [facility] codeine-guaifenesin 10 mL, Route: PO, Drug Form: LIQ, Q6H, PRN Cough, Start date: 04/22/12 8:36:00, Duration: 30 day, Stop date: 05/22/12 8:35:00 PO No Longer Active [place] 04/22/2012 [facility] Sodium Chloride 0.45% IV 1,000 mL 1,000 mL, Rate: 100 ml/hr, Infuse over: 10 hr, Route: IV, kg, Total Volume: 1,000, Start date: 04/22/12 8:36:00, Duration: 15 hr, Stop date: 04/22/12 23:35:00 IV No Longer Active [place] 04/22/2012 [facility] DuoNeb inhalation solution 3 mL, Route: NEB, Drug Form: SOLN, PRN, PRN Wheezing, Start date: 04/22/12 8:32:00, Duration: 30 day, Stop date: 05/22/12 8:31:00 NEB No Longer Active [place] 04/22/2012 [facility] morphine Sulfate 2 mg, Route: IVP, ONCE, Dosing Weight 136.364, kg, Priority: STAT, Start date: 04/22/12 7:40:00, Stop date: 04/22/12 7:40:00 IVP No Longer Active [place] 04/22/2012 [facility] Dilaudid 1 mg, 1 mL, Route: IV, Drug form: INJ, ONCE, Dosing Weight 136.364, kg, Start date: 04/22/12 5:37:00, Stop date: 04/22/12 5:37:00 IV No Longer Active [place] 04/22/2012 [facility] Lovenox 130 mg, 0.87 mL, Route: SUB-Q, Drug form: INJ, ONCE, Dosing Weight 136.364, kg, Priority: STAT, Start date: 04/22/12 5:16:00, Stop date: 04/22/12 5:16:00 SUB-Q No Longer Active [place] 04/22/2012 [facility] acetaminophen 1,000 mg, 2 tab, Route: PO, Drug form: TAB, ONCE, Dosing Weight 136.364, kg, Start date: 04/22/12 1:43:00, Stop date: 04/22/12 1:43:00 PO No Longer Active [place] 04/22/2012 [facility] DuoNeb inhalation solution 3 mL, Route: INHALATION, Drug Form: SOLN, Dosing Weight 136.364, kg, Q15Min, PRN Wheezing, Start date: 04/22/12 1:42:00, Duration: 3 doses or times, Stop date: Limited # of times INHALATION No Longer Active [place] 04/22/2012 [facility] predniSONE 60 mg, 3 tab, Route: PO, Drug form: TAB, ONCE, Dosing Weight 136.364, kg, Priority: STAT, Start date: 04/22/12 1:40:00, Stop date: 04/22/12 1:40:00 PO No Longer Active [place] 04/22/2012 [facility] Colace 100 mg oral capsule 100 mg, 1 cap, PO, BID, PRN, 20 cap, Constipation, Substitution Allowed, CAP PO Active [place] 04/21/2012 [facility] [place] 10/325 oral tablet 1-2 tab, PO, Q4-6H, PRN, 30 tab, Pain, Substitution Allowed, Maintenance PO Active Teja 04/21/2012 [facility] hydromorphone 2 mg, 1 mL, Route: IM, Drug form: INJ, ONCE, Dosing Weight 136.364, kg, Priority: STAT, Start date: 04/21/12 0:11:00, Stop date: 04/21/12 0:11:00 IM No Longer Active [place] 04/21/2012 [facility] [place] 10/325 oral tablet 1 tab, PO, Q4H, PRN, 24 tab, for pain, Substitution Allowed, Maintenance PO Active Siddiqui 04/20/2012 [facility] Versed 4 mg, 4 mL, Route: IVP, Drug form: SOLN, ONCE, Dosing Weight 136.364, kg, Priority: STAT, Start date: 04/20/12 1:21:00, Stop date: 04/20/12 1:21:00 IVP No Longer Active Siddiqui 04/20/2012 [facility] Dilaudid 1 mg, 1 mL, Route: IV, Drug form: INJ, ONCE, Dosing Weight 136.364, kg, Start date: 04/20/12 1:21:00, Stop date: 04/20/12 1:21:00 IV No Longer Active Sidd[place]i 04/20/2012 [facility] Zofran 4 mg, 2 mL, Route: IVP, Drug form: INJ, ONCE, Dosing Weight 136.364, kg, Priority: STAT, Start date: 04/20/12 1:01:00, Stop date: 04/20/12 1:01:00 IVP No Longer Active [place] 04/20/2012 [facility] morphine Sulfate 6 mg, 0.6 mL, Route: IVP, Drug form: INJ, ONCE, Dosing Weight 136.364, kg, Start date: 04/20/12 1:01:00, Stop date: 04/20/12 1:01:00 IVP No Longer Active Siddiqui 04/20/2012 [facility] Allergies, Adverse Reactions, Alerts Substance Category Reaction Severity Reaction type Status Date Reported Comments Source No Known Medication Allergies Assertion Drug allergy [facility] HYDROcodone Assertion Drug allergy Active [facility] Immunizations Immunization Date Given Site Status Last Updated Comments Source pneumococcal 23-valent vaccine 03/13/2017 Not [facility] Results Order Name Results Value Reference Range Date Interpretation Comments Source HEMATOLOGY D-Dimer <0.27 09/29/2018 [facility] CARDIAC ENZYMES BNP 11 <=100 pg/mL 09/29/2018 [facility] CARDIAC ENZYMES Troponin-I <0.02 0.00 - 0.40 09/29/2018 [facility] CHEM PANEL eGFR 78 09/29/2018 Result [...] should be multiplied by the estimated BMI. [facility] CHEM PANEL Glucose Lvl 93 70 - 99 09/29/2018 [facility] CHEM PANEL CO2 25 24 - 32 09/29/2018 [facility] CHEM PANEL Chloride Lvl 110 95 - 109 09/29/2018 [facility] CHEM PANEL Potassium Lvl 3.9 3.5 - 5.1 09/29/2018 [facility] CHEM PANEL Sodium Lvl 141 135 - 145 09/29/2018 [facility] CHEM PANEL Creatinine Lvl 0.92 0.50 - 1.40 09/29/2018 [facility] CHEM PANEL BUN 13 7 - 22 09/29/2018 [facility] CHEM PANEL Calcium Lvl 8.7 8.5 - 10.5 09/29/2018 [facility] CHEM PANEL AGAP 9.9 10.0 - 20.0 09/29/2018 [facility] HEMATOLOGY Eosinophils # 0.3 0.0 - 0.5 09/29/2018 [facility] HEMATOLOGY Lymphocytes # 1.8 1.0 - 5.5 09/29/2018 [facility] HEMATOLOGY Basophils # 0.1 0.0 - 0.2 09/29/2018 [facility] HEMATOLOGY Monocytes # 0.5 0.0 - 0.8 09/29/2018 [facility] HEMATOLOGY Segs 77.8 45.0 - 75.0 09/29/2018 [facility] Basophils 0.6 0.0 - 1.0 09/29/2018 [facility] Lymphocytes 14.9 20.0 - 40.0 09/29/2018 [facility] Monocytes 3.9 2.0 - 12.0 09/29/2018 [facility] Neutrophils # 9.3 1.5 - 8.1 09/29/2018 [facility] Eosinophils 2.8 0.0 - 4.0 09/29/2018 [facility] MPV 8.0 7.4 - 10.4 09/29/2018 [facility] MCHC 32.1 32.0 - 36.0 09/29/2018 [facility] RDW 16.5 11.5 - 14.5 09/29/2018 [facility] Platelet 298 133 - 450 09/29/2018 [facility] Hgb 12.2 12.0 - 16.0 09/29/2018 [facility] Hct 38.0 36.0 - 48.0 09/29/2018 [facility] MCV 79.3 80.0 - 98.0 09/29/2018 [facility] MCH 25.4 27.0 - 31.0 09/29/2018 [facility] RBC 4.79 4.20 - 5.40 09/29/2018 [facility] WBC 12.0 3.7 - 10.4 09/29/2018 [facility] CARDIAC ENZYMES BNP 41 <=100 pg/mL 08/01/2018 [facility] ELECTROLYTES AGAP 14.4 10.0 - 20.0 08/01/2018 [facility] ELECTROLYTES eGFR 73 08/01/2018 Result Comment: [...] should be multiplied by the estimated BMI. [facility] ELECTROLYTES Sodium Lvl 143 135 - 145 08/01/2018 [facility] ELECTROLYTES Creatinine Lvl 0.96 0.50 - 1.40 08/01/2018 [facility] ELECTROLYTES CO2 29 24 - 32 08/01/2018 [facility] ELECTROLYTES Potassium Lvl 4.4 3.5 - 5.1 08/01/2018 [facility] ELECTROLYTES Calcium Lvl 8.6 8.5 - 10.5 08/01/2018 [facility] ELECTROLYTES Chloride Lvl 104 95 - 109 08/01/2018 [facility] ELECTROLYTES Glucose Lvl 152 70 - 99 08/01/2018 [facility] ELECTROLYTES BUN 18 7 - 22 08/01/2018 [facility] LIPIDS LDL (Calculated) 77 <=99 mg/dL 07/30/2018 [facility] CHD Risk 3.58 3.90 - 5.80 07/30/2018 [facility] HDL 36 >=61 mg/dL 07/30/2018 [facility] Trig 81 <=149 mg/dL 07/30/2018 [facility] LIPIDS Chol 129 <=199 mg/dL 07/30/2018 [facility] LIPIDS VLDL 16 07/30/2018 [facility] CHEM PANEL Phosphorus 3.1 2.5 - 4.5 07/29/2018 [facility] CHEM PANEL eGFR 65 07/29/2018 Result [...] should be multiplied by the estimated BMI. [facility] CHEM PANEL Glucose Lvl 128 70 - 99 07/29/2018 [facility] CHEM PANEL Creatinine Lvl 1.06 0.50 - 1.40 07/29/2018 [facility] CHEM PANEL BUN 11 7 - 22 07/29/2018 [facility] CHEM PANEL Total Protein 7.8 6.4 - 8.4 07/29/2018 [facility] CHEM PANEL Albumin Lvl 3.4 3.5 - 5.0 07/29/2018 [facility] CHEM PANEL Potassium Lvl 4.1 3.5 - 5.1 07/29/2018 [facility] CHEM PANEL Calcium Lvl 8.8 8.5 - 10.5 07/29/2018 [facility] CHEM PANEL CO2 22 24 - 32 07/29/2018 [facility] CHEM PANEL Chloride Lvl 109 95 - 109 07/29/2018 [facility] CHEM PANEL Sodium Lvl 139 135 - 145 07/29/2018 [facility] CHEM PANEL ALT 20 0 - 65 07/29/2018 [facility] CHEM PANEL AST 16 0 - 37 07/29/2018 [facility] CHEM PANEL Bili Total 0.1 0.2 - 1.3 07/29/2018 [facility] CHEM PANEL Alk Phos 100 39 - 136 07/29/2018 [facility] CHEM PANEL B/C Ratio 10 6 - 25 07/29/2018 [facility] CHEM PANEL AGAP 12.1 10.0 - 20.0 07/29/2018 [facility] CHEM PANEL A/G Ratio 0.8 0.7 - 1.6 07/29/2018 [facility] CHEM PANEL Globulin 4.4 2.7 - 4.2 07/29/2018 [facility] CHEM PANEL Magnesium Lvl 2.1 1.8 - 2.4 07/29/2018 [facility] HEMATOLOGY RDW 16.3 11.5 - 14.5 07/29/2018 [facility] HEMATOLOGY Platelet 323 133 - 450 07/29/2018 [facility] HEMATOLOGY MPV 8.8 7.4 - 10.4 07/29/2018 [facility] HEMATOLOGY MCHC 32.9 32.0 - 36.0 07/29/2018 [facility] HEMATOLOGY RBC 4.78 4.20 - 5.40 07/29/2018 [facility] HEMATOLOGY WBC 11.4 3.7 - 10.4 07/29/2018 [facility] HEMATOLOGY MCH 25.5 27.0 - 31.0 07/29/2018 [facility] MCV 77.6 80.0 - 98.0 07/29/2018 [facility] Hct 37.1 36.0 - 48.0 07/29/2018 [facility] Hgb 12.2 12.0 - 16.0 07/29/2018 [facility] Neutrophils # 10.2 1.5 - 8.1 07/29/2018 [facility] Basophils 0.1 0.0 - 1.0 07/29/2018 [facility] Microcyte 1+ *ABN* (07/29/18 2:00 AM) None Seen 07/29/2018 [facility] Monocytes # 0.5 0.0 - 0.8 07/29/2018 [facility] Lymphocytes # 0.7 1.0 - 5.5 07/29/2018 [facility] Segs 89.4 45.0 - 75.0 07/29/2018 [facility] Lymphocytes 6.0 20.0 - 40.0 07/29/2018 [facility] Monocytes 4.5 2.0 - 12.0 07/29/2018 [facility] VIRAL - SEROLOGY Influ B Negative (07/28/18 12:46 PM) Negative 07/28/2018 [facility] VIRAL - SEROLOGY Influ A Negative (07/28/18 12:46 PM) Negative 07/28/2018 [facility] CARDIAC ENZYMES Troponin-I <0.02 0.00 - 0.40 07/28/2018 [facility] CARDIAC ENZYMES Troponin-I <0.02 0.00 - 0.40 07/28/2018 [facility] HEMATOLOGY D-Dimer 0.28 07/28/2018 [facility] CARDIAC ENZYMES Total CK 43 12 - 191 07/28/2018 [facility] CARDIAC ENZYMES BNP 9 <=100 pg/mL 07/28/2018 [facility] CARDIAC ENZYMES Troponin-I <0.02 0.00 - 0.40 07/28/2018 [facility] CHEM PANEL eGFR 63 07/28/2018 Result [...] should be multiplied by the estimated BMI. [facility] CHEM PANEL Alk Phos 99 39 - 136 07/28/2018 [facility] CHEM PANEL Bili Total 0.2 0.2 - 1.3 07/28/2018 [facility] CHEM PANEL ALT 18 0 - 65 07/28/2018 [facility] CHEM PANEL AST 11 0 - 37 07/28/2018 [facility] CHEM PANEL Albumin Lvl 3.3 3.5 - 5.0 07/28/2018 [facility] CHEM PANEL Calcium Lvl 8.2 8.5 - 10.5 07/28/2018 [facility] CHEM PANEL Total Protein 7.5 6.4 - 8.4 07/28/2018 [facility] CHEM PANEL Chloride Lvl 110 95 - 109 07/28/2018 [facility] CHEM PANEL CO2 23 24 - 32 07/28/2018 [facility] CHEM PANEL Sodium Lvl 139 135 - 145 07/28/2018 [facility] CHEM PANEL Potassium Lvl 3.5 3.5 - 5.1 07/28/2018 [facility] CHEM PANEL BUN 13 7 - 22 07/28/2018 [facility] CHEM PANEL Creatinine Lvl 1.10 0.50 - 1.40 07/28/2018 [facility] CHEM PANEL Glucose Lvl 118 70 - 99 07/28/2018 [facility] CHEM PANEL AGAP 9.5 10.0 - 20.0 07/28/2018 [facility] CHEM PANEL Globulin 4.2 2.7 - 4.2 07/28/2018 [facility] CHEM PANEL A/G Ratio 0.8 0.7 - 1.6 07/28/2018 [facility] CHEM PANEL B/C Ratio 12 6 - 25 07/28/2018 [facility] ENDOCRINOLOGY S Preg Negative *NA* (07/28/18 12:32 AM) Negative 07/28/2018 [facility] HEMATOLOGY Monocytes # 0.5 0.0 - 0.8 07/28/2018 [facility] HEMATOLOGY Eosinophils # 0.1 0.0 - 0.5 07/28/2018 [facility] HEMATOLOGY Basophils # 0.1 0.0 - 0.2 07/28/2018 [facility] HEMATOLOGY Microcyte 1+ *ABN* (07/28/18 12:32 AM) None Seen 07/28/2018 [facility] Segs 78.0 45.0 - 75.0 07/28/2018 [facility] Lymphocytes 16.1 20.0 - 40.0 07/28/2018 [facility] HEMATOLOGY Monocytes 4.4 2.0 - 12.0 07/28/2018 [facility] HEMATOLOGY Eosinophils 1.0 0.0 - 4.0 07/28/2018 [facility] HEMATOLOGY Basophils 0.5 0.0 - 1.0 07/28/2018 [facility] Neutrophils # 8.6 1.5 - 8.1 07/28/2018 [facility] Lymphocytes # 1.8 1.0 - 5.5 07/28/2018 [facility] RBC 4.89 4.20 - 5.40 07/28/2018 [facility] Hgb 12.1 12.0 - 16.0 07/28/2018 [facility] MCV 77.9 80.0 - 98.0 07/28/2018 [facility] MCH 24.8 27.0 - 31.0 07/28/2018 [facility] WBC 11.0 3.7 - 10.4 07/28/2018 [facility] Platelet 294 133 - 450 07/28/2018 [facility] MPV 8.4 7.4 - 10.4 07/28/2018 [facility] Hct 38.1 36.0 - 48.0 07/28/2018 [facility] MCHC 31.8 32.0 - 36.0 07/28/2018 [facility] RDW 16.4 11.5 - 14.5 07/28/2018 [facility] INR 0.96 0.85 - 1.17 07/28/2018 [facility] HEMATOLOGY PT 12.6 12.0 - 14.7 07/28/2018 [facility] PTT 32.0 22.9 - 35.8 07/28/2018 [facility] CARDIAC ENZYMES Troponin-I <0.02 0.00 - 0.40 03/17/2018 [facility] CHEM PANEL Lipase Lvl 91 73 - 393 03/17/2018 [facility] CHEM PANEL eGFR 93 03/17/2018 Result [...] should be multiplied by the estimated BMI. [facility] CHEM PANEL Alk Phos 98 39 - 136 03/17/2018 [facility] CHEM PANEL AST 15 0 - 37 03/17/2018 [facility] CHEM PANEL ALT 17 0 - 65 03/17/2018 [facility] CHEM PANEL Albumin Lvl 3.4 3.5 - 5.0 03/17/2018 [facility] CHEM PANEL BUN 13 7 - 22 03/17/2018 [facility] CHEM PANEL Glucose Lvl 84 70 - 99 03/17/2018 [facility] CHEM PANEL Chloride Lvl 106 95 - 109 03/17/2018 [facility] CHEM PANEL Potassium Lvl 3.9 3.5 - 5.1 03/17/2018 [facility] CHEM PANEL Sodium Lvl 141 135 - 145 03/17/2018 [facility] CHEM PANEL Creatinine Lvl 0.79 0.50 - 1.40 03/17/2018 [facility] CHEM PANEL Total Protein 7.8 6.4 - 8.4 03/17/2018 [facility] CHEM PANEL Calcium Lvl 8.8 8.5 - 10.5 03/17/2018 [facility] CHEM PANEL CO2 25 24 - 32 03/17/2018 [facility] CHEM PANEL Bili Total 0.3 0.2 - 1.3 03/17/2018 [facility] CHEM PANEL A/G Ratio 0.8 0.7 - 1.6 03/17/2018 [facility] CHEM PANEL Globulin 4.4 2.7 - 4.2 03/17/2018 [facility] CHEM PANEL B/C Ratio 16 6 - 25 03/17/2018 [facility] CHEM PANEL AGAP 13.9 10.0 - 20.0 03/17/2018 [facility] HEMATOLOGY Basophils # 0.1 0.0 - 0.2 03/17/2018 [facility] HEMATOLOGY Eosinophils # 0.2 0.0 - 0.5 03/17/2018 [facility] HEMATOLOGY Microcyte 1+ *ABN* (03/16/18 10:56 PM) None Seen 03/17/2018 [facility] HEMATOLOGY Lymphocytes # 3.6 1.0 - 5.5 03/17/2018 [facility] HEMATOLOGY Neutrophils # 8.9 1.5 - 8.1 03/17/2018 [facility] HEMATOLOGY Monocytes # 0.6 0.0 - 0.8 03/17/2018 [facility] HEMATOLOGY Basophils 0.7 0.0 - 1.0 03/17/2018 [facility] HEMATOLOGY Eosinophils 1.4 0.0 - 4.0 03/17/2018 [facility] Lymphocytes 27.3 20.0 - 40.0 03/17/2018 [facility] Monocytes 4.2 2.0 - 12.0 03/17/2018 [facility] Segs 66.4 45.0 - 75.0 03/17/2018 [facility] RDW 16.6 11.5 - 14.5 03/17/2018 [facility] MCHC 33.1 32.0 - 36.0 03/17/2018 [facility] MCH 25.6 27.0 - 31.0 03/17/2018 [facility] MCV 77.4 80.0 - 98.0 03/17/2018 [facility] HEMATOLOGY Hct 39.2 36.0 - 48.0 03/17/2018 [facility] Hgb 13.0 12.0 - 16.0 03/17/2018 [facility] WBC 13.4 3.7 - 10.4 03/17/2018 [facility] HEMATOLOGY Platelet 292 133 - 450 03/17/2018 [facility] HEMATOLOGY RBC 5.07 4.20 - 5.40 03/17/2018 [facility] MPV 8.8 7.4 - 10.4 03/17/2018 [facility] URINE AND STOOL UA WBC 1 0 - 5 03/17/2018 [facility] URINE AND STOOL UA Leuk Est Trace *ABN* (03/16/18 10:56 PM) Negative 03/17/2018 [facility] URINE AND STOOL UA Sq Epi Occasional /LPF Few /LPF 03/17/2018 [facility] URINE AND STOOL UA Nitrite Negative (03/16/18 10:56 PM) Negative 03/17/2018 [facility] URINE AND STOOL UA Blood Negative [...] Turbidity Clear (03/16/18 10:56 PM) Clear 03/17/2018 [facility] URINE AND STOOL UA Color Yellow *NA* (03/16/18 10:56 PM) Yellow 03/17/2018 [facility] URINE AND STOOL UA Bacteria Few /HPF None Seen /HPF 03/17/2018 [facility] URINE AND STOOL UA RBC 2 0 - 2 03/17/2018 [facility] URINE AND STOOL UA Urobilinogen <=1.0 mg/dL 0.1 - 1.0 03/17/2018 [facility] URINE CHEM U Preg Negative (03/16/18 [...] UA RBC 2 0 - 2 03/03/2018 [facility] URINE AND STOOL UA Sq Epi Occasional /LPF Few /LPF 03/03/2018 [facility] URINE AND STOOL UA Leuk Est Moderate *ABN* (03/03/18 9:40 AM) Negative 03/03/2018 [facility] URINE AND STOOL UA Spec Grav 1.014 <=1.030 03/03/2018 [facility] URINE AND STOOL UA pH 5.0 5.0 - 8.0 03/03/2018 [facility] URINE AND STOOL UA Turbidity Clear (03/03/18 9:40 AM) Clear 03/03/2018 [facility] URINE AND STOOL UA Color Yellow *NA* (03/03/18 9:40 AM) Yellow 03/03/2018 [facility] Culture: Urine <10,000 CFU/mL Skin Martina 03/03/2018 [facility] ELECTROLYTES AGAP 15.2 10.0 - 20.0 03/03/2018 [facility] ELECTROLYTES eGFR 88 03/03/2018 Result Comment: [...] should be multiplied by the estimated BMI. [facility] ELECTROLYTES Sodium Lvl 144 135 - 145 03/03/2018 [facility] ELECTROLYTES Creatinine Lvl 0.83 0.50 - 1.40 03/03/2018 [facility] ELECTROLYTES Potassium Lvl 4.2 3.5 - 5.1 03/03/2018 [facility] ELECTROLYTES CO2 22 24 - 32 03/03/2018 [facility] ELECTROLYTES Chloride Lvl 111 95 - 109 03/03/2018 [facility] ELECTROLYTES Calcium Lvl 8.4 8.5 - 10.5 03/03/2018 [facility] ELECTROLYTES Glucose Lvl 97 70 - 99 03/03/2018 [facility] ELECTROLYTES BUN 9 7 - 22 03/03/2018 [facility] ENDOCRINOLOGY S Preg Negative *NA* (03/03/18 9:16 AM) Negative 03/03/2018 [facility] HEMATOLOGY Eosinophils # 0.2 0.0 - 0.5 03/03/2018 [facility] Basophils # 0.1 0.0 - 0.2 03/03/2018 [facility] Microcyte 1+ *ABN* (03/03/18 9:16 AM) None Seen 03/03/2018 [facility] HEMATOLOGY Lymphocytes 19.5 20.0 - 40.0 03/03/2018 [facility] Segs 72.5 45.0 - 75.0 03/03/2018 [facility] Monocytes 4.9 2.0 - 12.0 03/03/2018 [facility] Basophils 1.1 0.0 - 1.0 03/03/2018 [facility] Eosinophils 2.0 0.0 - 4.0 03/03/2018 [facility] Lymphocytes # 1.9 1.0 - 5.5 03/03/2018 [facility] Neutrophils # 7.2 1.5 - 8.1 03/03/2018 [facility] Monocytes # 0.5 0.0 - 0.8 03/03/2018 [facility] D-Dimer 0.33 03/03/2018 [facility] MPV 8.0 7.4 - 10.4 03/03/2018 [facility] RDW 16.6 11.5 - 14.5 03/03/2018 [facility] Platelet 309 133 - 450 03/03/2018 [facility] MCHC 33.4 32.0 - 36.0 03/03/2018 [facility] MCH 25.6 27.0 - 31.0 03/03/2018 [facility] Hct 35.8 36.0 - 48.0 03/03/2018 [facility] RBC 4.65 4.20 - 5.40 03/03/2018 [facility] Hgb 11.9 12.0 - 16.0 03/03/2018 [facility] WBC 10.0 3.7 - 10.4 03/03/2018 [facility] MCV 76.9 80.0 - 98.0 03/03/2018 [facility] RAPID Grp A Strep Scr Negative (03/03/18 9:16 AM) Negative 03/03/2018 [facility] VIRAL - SEROLOGY Influ B Negative (03/03/18 9:16 AM) Negative 03/03/2018 [facility] VIRAL - SEROLOGY Influ A Negative (03/03/18 9:16 AM) Negative 03/03/2018 [facility] HEMATOLOGY D-Dimer 0.35 02/11/2018 [facility] CARDIAC ENZYMES Total CK 38 12 - 191 02/10/2018 [facility] CARDIAC ENZYMES BNP 19 <=100 pg/mL 02/10/2018 [facility] CARDIAC ENZYMES Troponin-I <0.02 0.00 - 0.40 02/10/2018 [facility] CHEM PANEL eGFR 66 02/10/2018 Result [...] should be multiplied by the estimated BMI. [facility] CHEM PANEL Potassium Lvl 3.5 3.5 - 5.1 02/10/2018 [facility] CHEM PANEL Chloride Lvl 108 95 - 109 02/10/2018 [facility] CHEM PANEL Calcium Lvl 9.7 8.5 - 10.5 02/10/2018 [facility] CHEM PANEL CO2 31 24 - 32 02/10/2018 [facility] CHEM PANEL Sodium Lvl 143 135 - 145 02/10/2018 [facility] CHEM PANEL Creatinine Lvl 1.05 0.50 - 1.40 02/10/2018 [facility] CHEM PANEL ALT 18 0 - 65 02/10/2018 [facility] CHEM PANEL Albumin Lvl 3.3 3.5 - 5.0 02/10/2018 [facility] CHEM PANEL Alk Phos 97 39 - 136 02/10/2018 [facility] CHEM PANEL AST 12 0 - 37 02/10/2018 [facility] CHEM PANEL Total Protein 7.5 6.4 - 8.4 02/10/2018 [facility] CHEM PANEL Bili Total <0.1 0.2 - 1.3 02/10/2018 [facility] CHEM PANEL BUN 13 7 - 22 02/10/2018 [facility] CHEM PANEL Glucose Lvl 93 70 - 99 02/10/2018 [facility] CHEM PANEL Globulin 4.2 2.7 - 4.2 02/10/2018 [facility] CHEM PANEL A/G Ratio 0.8 0.7 - 1.6 02/10/2018 [facility] CHEM PANEL B/C Ratio 12 6 - 25 02/10/2018 [facility] CHEM PANEL AGAP 7.5 10.0 - 20.0 02/10/2018 [facility] ENDOCRINOLOGY S Preg Negative *NA* (02/10/18 5:18 PM) Negative 02/10/2018 [facility] HEMATOLOGY Neutrophils # 7.1 1.5 - 8.1 02/10/2018 [facility] Lymphocytes # 3.1 1.0 - 5.5 02/10/2018 [facility] Monocytes # 0.5 0.0 - 0.8 02/10/2018 [facility] HEMATOLOGY Eosinophils # 0.2 0.0 - 0.5 02/10/2018 [facility] Basophils # 0.1 0.0 - 0.2 02/10/2018 [facility] Microcyte 1+ *ABN* (02/10/18 5:18 PM) None Seen 02/10/2018 [facility] Segs 64.6 45.0 - 75.0 02/10/2018 [facility] Lymphocytes 28.1 20.0 - 40.0 02/10/2018 [facility] Basophils 1.2 0.0 - 1.0 02/10/2018 [facility] Monocytes 4.2 2.0 - 12.0 02/10/2018 [facility] Eosinophils 1.9 0.0 - 4.0 02/10/2018 [facility] WBC 11.0 3.7 - 10.4 02/10/2018 [facility] Hgb 12.0 12.0 - 16.0 02/10/2018 [facility] RBC 4.77 4.20 - 5.40 02/10/2018 [facility] RDW 16.0 11.5 - 14.5 02/10/2018 [facility] MCH 25.3 27.0 - 31.0 02/10/2018 [facility] HEMATOLOGY MCHC 33.3 32.0 - 36.0 02/10/2018 [facility] HEMATOLOGY Hct 36.2 36.0 - 48.0 02/10/2018 [facility] HEMATOLOGY MCV 76.0 80.0 - 98.0 02/10/2018 [facility] HEMATOLOGY Platelet 292 133 - 450 02/10/2018 [facility] HEMATOLOGY MPV 8.1 7.4 - 10.4 02/10/2018 [facility] URINE AND STOOL UA Spec Grav 1.021 <=1.030 09/29/2017 [facility] URINE AND STOOL UA pH 5.0 5.0 - 8.0 09/29/2017 [facility] URINE AND STOOL UA Glucose Negative mg/dL Negative mg/dL 09/29/2017 [facility] URINE AND STOOL UA Protein Negative mg/dL Negative mg/dL 09/29/2017 [facility] URINE AND STOOL UA Bili Negative *NA* (09/29/17 4:49 PM) Negative 09/29/2017 [facility] URINE AND STOOL UA Ketones Negative mg/dL Negative mg/dL 09/29/2017 [facility] URINE AND STOOL UA Blood Negative (09/29/17 4:49 PM) Negative 09/29/2017 [facility] URINE AND STOOL UA Leuk Est Negative (09/29/17 4:49 PM) Negative 09/29/2017 [facility] URINE AND STOOL UA Nitrite Negative (09/29/17 4:49 PM) Negative 09/29/2017 [facility] URINE AND STOOL UA WBC 2 0 - 5 09/29/2017 [facility] URINE AND STOOL UA Sq Epi Few /LPF Few /LPF 09/29/2017 [facility] URINE AND STOOL UA RBC 5 0 - 2 09/29/2017 [facility] URINE AND STOOL UA Mucus Few /LPF None Seen /LPF 09/29/2017 [facility] URINE AND STOOL UA Urobilinogen <=1.0 mg/dL 0.1 - 1.0 09/29/2017 [facility] URINE AND STOOL UA Color Yellow *NA* (09/29/17 4:49 PM) Yellow 09/29/2017 [facility] URINE AND STOOL UA Turbidity Clear (09/29/17 4:49 PM) Clear 09/29/2017 [facility] URINE CHEM U Preg Negative (09/29/17 4:49 PM) Negative 09/29/2017 [facility] CHEM PANEL Lactic Acid Lvl 1.0 0.5 - 2.2 09/29/2017 [facility] ELECTROLYTES AGAP 9.9 10.0 - 20.0 09/29/2017 [facility] ELECTROLYTES Globulin 4.3 2.7 - 4.2 09/29/2017 [facility] ELECTROLYTES B/C Ratio 13 6 - 25 09/29/2017 [facility] ELECTROLYTES A/G Ratio 0.7 0.7 - 1.6 09/29/2017 [facility] ELECTROLYTES eGFR 98 09/29/2017 Result Comment: [...] should be multiplied by the estimated BMI. [facility] ELECTROLYTES Creatinine Lvl 0.76 0.50 - 1.40 09/29/2017 [facility] ELECTROLYTES Potassium Lvl 3.9 3.5 - 5.1 09/29/2017 [facility] ELECTROLYTES Sodium Lvl 142 135 - 145 09/29/2017 [facility] ELECTROLYTES CO2 25 24 - 32 09/29/2017 [facility] ELECTROLYTES Calcium Lvl 8.6 8.5 - 10.5 09/29/2017 [facility] ELECTROLYTES Chloride Lvl 111 95 - 109 09/29/2017 [facility] ELECTROLYTES Total Protein 7.5 6.4 - 8.4 09/29/2017 [facility] ELECTROLYTES AST 20 0 - 37 09/29/2017 [facility] ELECTROLYTES ALT 22 0 - 65 09/29/2017 [facility] ELECTROLYTES Albumin Lvl 3.2 3.5 - 5.0 09/29/2017 [facility] ELECTROLYTES Alk Phos 101 39 - 136 09/29/2017 [facility] ELECTROLYTES Bili Total 0.2 0.2 - 1.3 09/29/2017 [facility] ELECTROLYTES Glucose Lvl 82 70 - 99 09/29/2017 [facility] ELECTROLYTES BUN 10 7 - 22 09/29/2017 [facility] HEMATOLOGY Microcyte 1+ *ABN* (09/29/17 2:44 PM) None Seen 09/29/2017 [facility] HEMATOLOGY Monocytes 4.3 2.0 - 12.0 09/29/2017 [facility] HEMATOLOGY Eosinophils 2.1 0.0 - 4.0 09/29/2017 [facility] HEMATOLOGY Segs 65.9 45.0 - 75.0 09/29/2017 [facility] HEMATOLOGY Lymphocytes # 3.5 1.0 - 5.5 09/29/2017 [facility] HEMATOLOGY Monocytes # 0.6 0.0 - 0.8 09/29/2017 [facility] HEMATOLOGY Eosinophils # 0.3 0.0 - 0.5 09/29/2017 [facility] HEMATOLOGY Lymphocytes 26.8 20.0 - 40.0 09/29/2017 [facility] HEMATOLOGY Basophils 0.9 0.0 - 1.0 09/29/2017 [facility] HEMATOLOGY Segs-Bands # 8.5 1.5 - 8.1 09/29/2017 [facility] Basophils # 0.1 0.0 - 0.2 09/29/2017 [facility] HEMATOLOGY Hct 37.7 36.0 - 48.0 09/29/2017 [facility] MCV 76.7 80.0 - 98.0 09/29/2017 [facility] MCH 25.4 27.0 - 31.0 09/29/2017 [facility] MCHC 33.1 32.0 - 36.0 09/29/2017 [facility] RDW 16.1 11.5 - 14.5 09/29/2017 [facility] Hgb 12.5 12.0 - 16.0 09/29/2017 [facility] Platelet 326 133 - 450 09/29/2017 [facility] MPV 8.3 7.4 - 10.4 09/29/2017 [facility] RBC 4.91 4.20 - 5.40 09/29/2017 [facility] WBC 12.9 3.7 - 10.4 09/29/2017 [facility] URINE AND STOOL UA Color Yellow *NA* (07/21/17 10:58 PM) Yellow 07/22/2017 [facility] URINE AND STOOL UA Turbidity Marked *ABN* (07/21/17 10:58 PM) Clear 07/22/2017 [facility] URINE AND STOOL UA Spec Grav 1.019 <=1.030 07/22/2017 [facility] URINE AND STOOL UA pH 7.0 [...] Nitrite Negative (07/21/17 10:58 PM) Negative 07/22/2017 [facility] URINE AND STOOL UA WBC 6 0 - 5 07/22/2017 [facility] URINE AND STOOL UA Sq Epi Many /LPF Few /LPF 07/22/2017 [facility] URINE AND STOOL UA Amorph Anita Few /HPF None Seen /HPF 07/22/2017 [facility] URINE AND STOOL UA RBC 2 0 - 2 07/22/2017 [facility] URINE AND STOOL UA Urobilinogen <=1.0 mg/dL 0.1 - 1.0 07/22/2017 [facility] URINE CHEM U Preg Negative (07/21/17 10:58 PM) Negative 07/22/2017 [facility] TOXICOLOGY Vanco Tr TND 0800 03/14/2017 [facility] TOXICOLOGY Vanco Tr 17.6 03/14/2017 [facility] HEMATOLOGY MCH 26.4 27.0 - 31.0 03/14/2017 [facility] HEMATOLOGY MCV 78.2 80.0 - 98.0 03/14/2017 [facility] HEMATOLOGY Hct 32.8 36.0 - 48.0 03/14/2017 [facility] HEMATOLOGY Hgb 11.1 12.0 - 16.0 03/14/2017 [facility] HEMATOLOGY MCHC 33.7 32.0 - 36.0 03/14/2017 [facility] HEMATOLOGY RBC 4.20 4.20 - 5.40 03/14/2017 [facility] HEMATOLOGY WBC 10.7 3.7 - 10.4 03/14/2017 [facility] HEMATOLOGY RDW 15.5 11.5 - 14.5 03/14/2017 [facility] HEMATOLOGY MPV 8.3 7.4 - 10.4 03/14/2017 [facility] HEMATOLOGY Platelet 262 133 - 450 03/14/2017 [facility] TOXICOLOGY Vanco Tr 22.1 03/14/2017 [facility] TOXICOLOGY Vanco Tr TND 06:00 03/14/2017 [facility] CHEM PANEL eGFR 88 03/13/2017 Result [...] should be multiplied by the estimated BMI. [facility] CHEM PANEL Calcium Lvl 8.0 8.5 - 10.5 03/13/2017 [facility] CHEM PANEL Glucose Lvl 139 70 - 99 03/13/2017 [facility] CHEM PANEL CO2 25 24 - 32 03/13/2017 [facility] CHEM PANEL AGAP 14.3 10.0 - 20.0 03/13/2017 [facility] CHEM PANEL Sodium Lvl 140 135 - 145 03/13/2017 [facility] CHEM PANEL Potassium Lvl 3.3 3.5 - 5.1 03/13/2017 [facility] CHEM PANEL Chloride Lvl 104 95 - 109 03/13/2017 [facility] CHEM PANEL BUN 11 7 - 22 03/13/2017 [facility] CHEM PANEL Creatinine Lvl 0.83 0.50 - 1.40 03/13/2017 [facility] HEMATOLOGY RBC 4.39 4.20 - 5.40 03/13/2017 [facility] HEMATOLOGY WBC 13.5 3.7 - 10.4 03/13/2017 [facility] HEMATOLOGY MPV 8.1 7.4 - 10.4 03/13/2017 [facility] HEMATOLOGY RDW 15.6 11.5 - 14.5 03/13/2017 [facility] Platelet 285 133 - 450 03/13/2017 [facility] MCHC 33.7 32.0 - 36.0 03/13/2017 [facility] MCH 26.0 27.0 - 31.0 03/13/2017 [facility] Hct 33.8 36.0 - 48.0 03/13/2017 [facility] MCV 77.1 80.0 - 98.0 03/13/2017 [facility] Hgb 11.4 12.0 - 16.0 03/13/2017 [facility] HEMATOLOGY Basophils 0.5 0.0 - 1.0 03/13/2017 [facility] HEMATOLOGY Lymphocytes # 3.7 1.0 - 5.5 03/13/2017 [facility] HEMATOLOGY Segs-Bands # 9.1 1.5 - 8.1 03/13/2017 [facility] Eosinophils # 0.2 0.0 - 0.5 03/13/2017 [facility] Monocytes # 0.5 0.0 - 0.8 03/13/2017 [facility] Microcyte 1+ *ABN* (03/13/17 4:59 AM) None Seen 03/13/2017 [facility] Basophils # 0.1 0.0 - 0.2 03/13/2017 [facility] Lymphocytes 27.6 20.0 - 40.0 03/13/2017 [facility] HEMATOLOGY Segs 66.9 45.0 - 75.0 03/13/2017 [facility] Eosinophils 1.3 0.0 - 4.0 03/13/2017 [facility] Monocytes 3.7 2.0 - 12.0 03/13/2017 [facility] RAPID Grp A Strep Scr Negative (03/12/17 5:50 PM) Negative 03/12/2017 [facility] VIRAL - SEROLOGY Influ B Negative (03/12/17 5:50 PM) Negative 03/12/2017 [facility] VIRAL - SEROLOGY Influ A Negative (03/12/17 5:50 PM) Negative 03/12/2017 [facility] URINE AND STOOL UA Color Ltyellow 03/12/2017 [facility] URINE AND STOOL UA Urobilinogen <=1.0 mg/dL 0.1 - 1.0 03/12/2017 [facility] URINE AND STOOL UA Bacteria Occasional /HPF None Seen /HPF 03/12/2017 [facility] URINE AND STOOL UA RBC 3 0 - 2 03/12/2017 [facility] URINE AND STOOL UA Nitrite Negative (03/12/17 4:14 PM) Negative 03/12/2017 [facility] URINE AND STOOL UA pH 5.0 5.0 - 8.0 03/12/2017 [facility] URINE AND STOOL UA Glucose Negative mg/dL Negative mg/dL 03/12/2017 [facility] URINE AND STOOL UA Protein Negative mg/dL Negative mg/dL 03/12/2017 [facility] URINE AND STOOL UA Ketones Negative mg/dL Negative mg/dL 03/12/2017 [facility] URINE AND STOOL UA WBC 3 0 - 5 03/12/2017 [facility] URINE AND STOOL UA Leuk Est Moderate *ABN* (03/12/17 4:14 PM) Negative 03/12/2017 [facility] URINE AND STOOL UA Sq Epi Few /LPF Few /LPF 03/12/2017 [facility] URINE AND STOOL UA Blood Moderate *ABN* (03/12/17 4:14 PM) Negative 03/12/2017 [facility] URINE AND STOOL UA Bili Negative *NA* (03/12/17 4:14 PM) Negative 03/12/2017 [facility] URINE AND STOOL UA Turbidity Slight *ABN* (03/12/17 4:14 PM) Clear 03/12/2017 [facility] URINE AND STOOL UA Spec Grav 1.016 <=1.030 03/12/2017 [facility] URINE CHEM U Preg Negative (03/12/17 4:14 PM) Negative 03/12/2017 [facility] CHEM PANEL eGFR 79 03/12/2017 Result [...] should be multiplied by the estimated BMI. [facility] CHEM PANEL Chloride Lvl 106 95 - 109 03/12/2017 [facility] CHEM PANEL Potassium Lvl 3.9 3.5 - 5.1 03/12/2017 [facility] CHEM PANEL Sodium Lvl 140 135 - 145 03/12/2017 [facility] CHEM PANEL Total Protein 7.7 6.4 - 8.4 03/12/2017 [facility] CHEM PANEL Bili Total 0.4 0.2 - 1.3 03/12/2017 [facility] CHEM PANEL Alk Phos 110 39 - 136 03/12/2017 [facility] CHEM PANEL AST 14 0 - 37 03/12/2017 [facility] CHEM PANEL Calcium Lvl 8.9 8.5 - 10.5 03/12/2017 [facility] CHEM PANEL CO2 25 24 - 32 03/12/2017 [facility] CHEM PANEL ALT 20 0 - 65 03/12/2017 [facility] CHEM PANEL Albumin Lvl 3.3 3.5 - 5.0 03/12/2017 [facility] CHEM PANEL Glucose Lvl 102 70 - 99 03/12/2017 [facility] CHEM PANEL Creatinine Lvl 0.94 0.50 - 1.40 03/12/2017 [facility] CHEM PANEL BUN 11 7 - 22 03/12/2017 [facility] ENDOCRINOLOGY S Preg Negative *NA* (03/12/17 4:01 PM) Negative 03/12/2017 [facility] HEMATOLOGY Eosinophils 0.3 0.0 - 4.0 03/12/2017 [facility] HEMATOLOGY Monocytes 4.7 2.0 - 12.0 03/12/2017 [facility] HEMATOLOGY Segs 87.0 45.0 - 75.0 03/12/2017 [facility] HEMATOLOGY Lymphocytes 7.3 20.0 - 40.0 03/12/2017 [facility] HEMATOLOGY Basophils # 0.1 0.0 - 0.2 03/12/2017 [facility] HEMATOLOGY Monocytes # 0.9 0.0 - 0.8 03/12/2017 [facility] HEMATOLOGY Segs-Bands # 16.9 1.5 - 8.1 03/12/2017 [facility] HEMATOLOGY Basophils 0.7 0.0 - 1.0 03/12/2017 [facility] HEMATOLOGY Lymphocytes # 1.4 1.0 - 5.5 03/12/2017 [facility] HEMATOLOGY Microcyte 1+ *ABN* (03/12/17 4:01 PM) None Seen 03/12/2017 [facility] HEMATOLOGY PTT 28.5 22.9 - 35.8 03/12/2017 [facility] HEMATOLOGY PT 13.1 12.0 - 14.7 03/12/2017 [facility] HEMATOLOGY INR 0.97 0.85 - 1.17 03/12/2017 [facility] HEMATOLOGY Platelet 302 133 - 450 03/12/2017 [facility] HEMATOLOGY MPV 8.2 7.4 - 10.4 03/12/2017 [facility] HEMATOLOGY RBC 5.06 4.20 - 5.40 03/12/2017 [facility] HEMATOLOGY WBC 19.5 3.7 - 10.4 03/12/2017 [facility] HEMATOLOGY Hgb 13.0 12.0 - 16.0 03/12/2017 [facility] HEMATOLOGY MCV 77.2 80.0 - 98.0 03/12/2017 [facility] HEMATOLOGY Hct 39.1 36.0 - 48.0 03/12/2017 [facility] HEMATOLOGY MCHC 33.2 32.0 - 36.0 03/12/2017 [facility] HEMATOLOGY MCH 25.6 27.0 - 31.0 03/12/2017 [facility] HEMATOLOGY RDW 15.4 11.5 - 14.5 03/12/2017 [facility] CARDIAC ENZYMES Troponin-I <0.02 0.00 - 0.40 11/05/2016 [facility] CARDIAC ENZYMES CK MB Index <1.4 0.0 - 2.5 11/05/2016 [facility] CARDIAC ENZYMES CK MB <0.5 0.5 - 3.6 11/05/2016 [facility] CARDIAC ENZYMES Total CK 37 12 - 191 11/05/2016 [facility] CARDIAC ENZYMES CK MB Index 2.9 0.0 - 2.5 11/05/2016 [facility] CARDIAC ENZYMES BNP 9 <=100 pg/mL 11/05/2016 [facility] CARDIAC ENZYMES Troponin-I <0.02 0.00 - 0.40 11/05/2016 [facility] CARDIAC ENZYMES Total CK 24 12 - 191 11/05/2016 [facility] CARDIAC ENZYMES CK MB 0.7 0.5 - 3.6 11/05/2016 [facility] CHEM PANEL Magnesium Lvl 2.0 1.8 - 2.4 11/05/2016 [facility] CHEM PANEL Bili Total 0.2 0.2 - 1.3 11/05/2016 [facility] CHEM PANEL eGFR 92 11/05/2016 Result [...] should be multiplied by the estimated BMI. [facility] CHEM PANEL AGAP 10.6 10.0 - 20.0 11/05/2016 [facility] CHEM PANEL B/C Ratio 16 6 - 25 11/05/2016 [facility] CHEM PANEL A/G Ratio 0.8 0.7 - 1.6 11/05/2016 [facility] CHEM PANEL Globulin 3.9 2.7 - 4.2 11/05/2016 [facility] CHEM PANEL BUN 13 7 - 22 11/05/2016 [facility] CHEM PANEL Glucose Lvl 109 70 - 99 11/05/2016 [facility] CHEM PANEL Calcium Lvl 9.0 8.5 - 10.5 11/05/2016 [facility] CHEM PANEL Total Protein 6.9 6.4 - 8.4 11/05/2016 [facility] CHEM PANEL AST 7 0 - 37 11/05/2016 [facility] CHEM PANEL Sodium Lvl 140 135 - 145 11/05/2016 [facility] CHEM PANEL Creatinine Lvl 0.81 0.50 - 1.40 11/05/2016 [facility] CHEM PANEL ALT 13 0 - 65 11/05/2016 [facility] CHEM PANEL Alk Phos 97 39 - 136 11/05/2016 [facility] CHEM PANEL Albumin Lvl 3.0 3.5 - 5.0 11/05/2016 [facility] CHEM PANEL Chloride Lvl 106 95 - 109 11/05/2016 [facility] CHEM PANEL Potassium Lvl 3.6 3.5 - 5.1 11/05/2016 [facility] CHEM PANEL CO2 27 24 - 32 11/05/2016 [facility] CHEM PANEL Lipase Lvl 96 73 - 393 11/05/2016 [facility] ENDOCRINOLOGY S Preg Negative *NA* (11/04/16 11:02 PM) Negative 11/05/2016 [facility] HEMATOLOGY Monocytes # 0.7 0.0 - 0.8 11/05/2016 [facility] HEMATOLOGY Lymphocytes # 3.2 1.0 - 5.5 11/05/2016 [facility] HEMATOLOGY Segs-Bands # 7.1 1.5 - 8.1 11/05/2016 [facility] HEMATOLOGY Monocytes 5.9 2.0 - 12.0 11/05/2016 [facility] Lymphocytes 28.4 20.0 - 40.0 11/05/2016 [facility] HEMATOLOGY Segs 63.7 45.0 - 75.0 11/05/2016 [facility] HEMATOLOGY Basophils 0.7 0.0 - 1.0 11/05/2016 [facility] HEMATOLOGY Eosinophils 1.3 0.0 - 4.0 11/05/2016 [facility] HEMATOLOGY Basophils # 0.1 0.0 - 0.2 11/05/2016 [facility] HEMATOLOGY Eosinophils # 0.1 0.0 - 0.5 11/05/2016 [facility] HEMATOLOGY Microcyte 1+ *ABN* (11/04/16 11:02 PM) None Seen 11/05/2016 [facility] HEMATOLOGY PTT 29.2 22.9 - 35.8 11/05/2016 [facility] HEMATOLOGY INR 1.01 0.85 - 1.17 11/05/2016 [facility] HEMATOLOGY PT 13.5 12.0 - 14.7 11/05/2016 [facility] HEMATOLOGY Platelet 280 133 - 450 11/05/2016 [facility] HEMATOLOGY RDW 15.6 11.5 - 14.5 11/05/2016 [facility] MCHC 34.3 32.0 - 36.0 11/05/2016 [facility] MCH 27.0 27.0 - 31.0 11/05/2016 [facility] Hct 35.6 36.0 - 48.0 11/05/2016 [facility] HEMATOLOGY Hgb 12.2 12.0 - 16.0 11/05/2016 [facility] HEMATOLOGY RBC 4.53 4.20 - 5.40 11/05/2016 [facility] HEMATOLOGY WBC 11.1 3.7 - 10.4 11/05/2016 [facility] HEMATOLOGY MCV 78.6 80.0 - 98.0 11/05/2016 [facility] HEMATOLOGY MPV 8.4 7.4 - 10.4 11/05/2016 [facility] CARDIAC ENZYMES Troponin-I <0.02 0.00 - 0.40 05/17/2016 [facility] URINE AND STOOL UA Urobilinogen <=1.0 mg/dL 0.1 - 1.0 05/17/2016 [facility] URINE AND STOOL UA Glucose Negative mg/dL Negative mg/dL 05/17/2016 [facility] URINE AND STOOL UA Ketones Negative mg/dL Negative mg/dL 05/17/2016 [facility] URINE AND STOOL UA Bili Negative *NA* (05/17/16 3:53 AM) Negative 05/17/2016 [facility] URINE AND STOOL UA Protein Negative mg/dL Negative mg/dL 05/17/2016 [facility] URINE AND STOOL UA Spec Grav 1.023 <=1.030 05/17/2016 [facility] URINE AND STOOL UA pH 5.0 5.0 - 8.0 05/17/2016 [facility] URINE AND STOOL UA Color Yellow *NA* (05/17/16 3:53 AM) Yellow 05/17/2016 [facility] URINE AND STOOL UA Turbidity Slight *ABN* (05/17/16 3:53 AM) Clear 05/17/2016 [facility] URINE AND STOOL UA Mucus Few /LPF None Seen /LPF 05/17/2016 [facility] URINE AND STOOL UA Trans Epi 1 <=0 /LPF 05/17/2016 [facility] URINE AND STOOL UA RBC 8 [...] Nitrite Negative (05/17/16 3:53 AM) Negative 05/17/2016 [facility] URINE CHEM U Preg Negative (05/17/16 3:53 AM) Negative 05/17/2016 [facility] CHEM PANEL Lipase Lvl 228 73 - 393 05/17/2016 [facility] CHEM PANEL eGFR 95 05/17/2016 Result [...] should be multiplied by the estimated BMI. [facility] CHEM PANEL Alk Phos 111 39 - 136 05/17/2016 [facility] CHEM PANEL Bili Total 0.4 0.2 - 1.3 05/17/2016 [facility] CHEM PANEL AST 41 0 - 37 05/17/2016 [facility] CHEM PANEL Albumin Lvl 3.4 3.5 - 5.0 05/17/2016 [facility] CHEM PANEL Total Protein 7.3 6.4 - 8.4 05/17/2016 [facility] CHEM PANEL Calcium Lvl 8.8 8.5 - 10.5 05/17/2016 [facility] CHEM PANEL ALT 50 0 - 65 05/17/2016 [facility] CHEM PANEL CO2 25 24 - 32 05/17/2016 [facility] CHEM PANEL Chloride Lvl 109 95 - 109 05/17/2016 [facility] CHEM PANEL Sodium Lvl 142 135 - 145 05/17/2016 [facility] CHEM PANEL Creatinine Lvl 0.79 0.50 - 1.40 05/17/2016 [facility] CHEM PANEL Potassium Lvl 3.7 3.5 - 5.1 05/17/2016 [facility] CHEM PANEL Glucose Lvl 99 70 - 99 05/17/2016 [facility] CHEM PANEL BUN 13 7 - 22 05/17/2016 [facility] CHEM PANEL A/G Ratio 0.9 0.7 - 1.6 05/17/2016 [facility] CHEM PANEL Globulin 3.9 2.7 - 4.2 05/17/2016 [facility] CHEM PANEL B/C Ratio 16 6 - 25 05/17/2016 [facility] CHEM PANEL AGAP 11.7 10.0 - 20.0 05/17/2016 [facility] HEMATOLOGY Eosinophils 1.6 0.0 - 4.0 05/17/2016 [facility] HEMATOLOGY Basophils 0.9 0.0 - 1.0 05/17/2016 [facility] HEMATOLOGY Segs-Bands # 3.7 1.5 - 8.1 05/17/2016 [facility] HEMATOLOGY Monocytes 7.5 2.0 - 12.0 05/17/2016 [facility] HEMATOLOGY Monocytes # 0.6 0.0 - 0.8 05/17/2016 [facility] HEMATOLOGY Basophils # 0.1 0.0 - 0.2 05/17/2016 [facility] HEMATOLOGY Lymphocytes # 3.1 1.0 - 5.5 05/17/2016 [facility] HEMATOLOGY Eosinophils # 0.1 0.0 - 0.5 05/17/2016 [facility] HEMATOLOGY Lymphocytes 40.9 20.0 - 40.0 05/17/2016 [facility] HEMATOLOGY Segs 49.1 45.0 - 75.0 05/17/2016 [facility] HEMATOLOGY MPV 7.8 7.4 - 10.4 05/17/2016 [facility] HEMATOLOGY WBC 7.5 3.7 - 10.4 05/17/2016 [facility] HEMATOLOGY RBC 4.45 4.20 - 5.40 05/17/2016 [facility] HEMATOLOGY Hct 35.5 36.0 - 48.0 05/17/2016 [facility] HEMATOLOGY MCH 25.8 27.0 - 31.0 05/17/2016 [facility] HEMATOLOGY Hgb 11.5 12.0 - 16.0 05/17/2016 [facility] HEMATOLOGY MCV 79.7 80.0 - 98.0 05/17/2016 [facility] HEMATOLOGY MCHC 32.4 32.0 - 36.0 05/17/2016 [facility] HEMATOLOGY RDW 18.7 11.5 - 14.5 05/17/2016 [facility] HEMATOLOGY Platelet 238 133 - 450 05/17/2016 [facility] CARDIAC ENZYMES Troponin-I <0.02 0.00 - 0.40 05/13/2016 [facility] IMMUNOLOGY [place] Scr Negative (05/13/16 12:16 PM) Negative 05/13/2016 [...] Blood Negative (05/13/16 12:13 PM) Negative 05/13/2016 [facility] URINE AND STOOL UA Bili Negative *NA* (05/13/16 12:13 PM) Negative 05/13/2016 [facility] URINE AND STOOL UA Ketones Negative mg/dL Negative mg/dL 05/13/2016 [facility] URINE AND STOOL UA pH 5.0 5.0 - 8.0 05/13/2016 [facility] URINE AND STOOL UA Spec Grav 1.024 <=1.030 05/13/2016 [facility] URINE AND STOOL UA Turbidity Clear (05/13/16 12:13 PM) Clear 05/13/2016 [facility] URINE AND STOOL UA Glucose Negative mg/dL Negative mg/dL 05/13/2016 [facility] URINE AND STOOL UA Protein Negative mg/dL Negative mg/dL 05/13/2016 [facility] URINE AND STOOL UA Color Yellow *NA* (05/13/16 12:13 PM) Yellow 05/13/2016 [facility] CHEM PANEL Lactic Acid Lvl 0.6 0.5 - 2.2 05/13/2016 [facility] CARDIAC ENZYMES Troponin-I <0.02 0.00 - 0.40 05/13/2016 [facility] CARDIAC ENZYMES CK MB 0.6 0.5 - 3.6 05/13/2016 [facility] CARDIAC ENZYMES Total CK 44 12 - 191 05/13/2016 [facility] CARDIAC ENZYMES CK MB Index 1.4 0.0 - 2.5 05/13/2016 [facility] CHEM PANEL Procalcitonin Lvl 0.08 0.00 - 0.10 05/13/2016 [facility] CHEM PANEL eGFR 71 05/13/2016 Result [...] HEMATOLOGY Bands 0.0 0.0 - 11.0 05/13/2016 [facility] HEMATOLOGY Monocytes # 0.9 0.0 - 0.8 05/13/2016 [facility] HEMATOLOGY Eosinophils # 0.3 0.0 - 0.5 05/13/2016 [facility] HEMATOLOGY Lymphocytes # 4.4 1.0 - 5.5 05/13/2016 [facility] HEMATOLOGY Segs-Bands # 3.3 1.5 - 8.1 05/13/2016 [facility] HEMATOLOGY Polychrom Slight 05/13/2016 [facility] HEMATOLOGY Atypical Lymphs 2.0 <=0.0 % 05/13/2016 [facility] HEMATOLOGY Plt Morph Normal (05/13/16 9:15 AM) 05/13/2016 [facility] HEMATOLOGY MCHC 32.7 32.0 - 36.0 05/13/2016 [facility] HEMATOLOGY MCH 26.2 27.0 - 31.0 05/13/2016 [facility] HEMATOLOGY MCV 80.1 80.0 - 98.0 05/13/2016 [facility] HEMATOLOGY Hct 34.6 36.0 - 48.0 05/13/2016 [facility] HEMATOLOGY Hgb 11.3 12.0 - 16.0 05/13/2016 [facility] HEMATOLOGY WBC 8.8 3.7 - 10.4 05/13/2016 [facility] HEMATOLOGY MPV 8.3 7.4 - 10.4 05/13/2016 [facility] HEMATOLOGY Platelet 231 133 - 450 05/13/2016 [facility] HEMATOLOGY RDW 18.5 11.5 - 14.5 05/13/2016 [facility] HEMATOLOGY RBC 4.32 4.20 - 5.40 05/13/2016 [facility] HEMATOLOGY PTT 27.2 22.9 - 35.8 05/13/2016 [facility] HEMATOLOGY INR 1.01 0.85 - 1.17 05/13/2016 [facility] HEMATOLOGY PT 13.5 12.0 - 14.7 05/13/2016 [facility] VIRAL - SEROLOGY Influ A Negative (05/13/16 9:15 AM) Negative 05/13/2016 [facility] VIRAL - SEROLOGY Influ B Negative (05/13/16 9:15 AM) Negative 05/13/2016 [facility] URINE AND STOOL UA Spec Grav 1.024 <=1.030 04/20/2016 [facility] URINE AND STOOL UA Color Yellow *NA* (04/19/16 11:04 PM) Yellow 04/20/2016 [facility] URINE AND STOOL UA Turbidity Clear (04/19/16 11:04 PM) Clear 04/20/2016 [facility] URINE AND STOOL UA Sq Epi Few /LPF Few /LPF 04/20/2016 [facility] URINE AND STOOL UA Mucus Few /LPF None Seen /LPF 04/20/2016 [facility] URINE AND STOOL UA Nitrite Negative (04/19/16 11:04 PM) Negative 04/20/2016 [facility] URINE AND STOOL UA Leuk Est Trace *ABN* (04/19/16 11:04 PM) Negative 04/20/2016 [facility] URINE AND STOOL UA WBC 3 0 - 5 04/20/2016 [facility] URINE AND STOOL UA RBC 24 0 - 2 04/20/2016 [facility] URINE AND STOOL UA Urobilinogen <=1.0 mg/dL 0.1 - 1.0 04/20/2016 [facility] URINE AND STOOL UA Protein Negative mg/dL Negative mg/dL 04/20/2016 [facility] URINE AND STOOL UA pH 7.0 5.0 - 8.0 04/20/2016 [facility] URINE AND STOOL UA Ketones Negative mg/dL Negative mg/dL 04/20/2016 [facility] URINE AND STOOL UA Blood Small *ABN* (04/19/16 11:04 PM) Negative 04/20/2016 [facility] URINE AND STOOL UA Bili Negative *NA* (04/19/16 11:04 PM) Negative 04/20/2016 [facility] URINE AND STOOL UA Glucose Negative mg/dL Negative mg/dL 04/20/2016 [facility] URINE CHEM U Preg Negative (04/19/16 11:04 PM) Negative 04/20/2016 [facility] CHEM PANEL ALT 32 0 - 65 04/20/2016 [facility] CHEM PANEL Bili Total 0.4 0.2 - 1.3 04/20/2016 [facility] CHEM PANEL Alk Phos 103 39 - 136 04/20/2016 [facility] CHEM PANEL Albumin Lvl 3.2 3.5 - 5.0 04/20/2016 [facility] CHEM PANEL CO2 26 24 - 32 04/20/2016 [facility] CHEM PANEL AST 30 0 - 37 04/20/2016 [facility] CHEM PANEL Total Protein 7.5 6.4 - 8.4 04/20/2016 [facility] CHEM PANEL Calcium Lvl 8.5 8.5 - 10.5 04/20/2016 [facility] CHEM PANEL eGFR 78 04/20/2016 Result [...] should be multiplied by the estimated BMI. [facility] CHEM PANEL Creatinine Lvl 0.93 0.50 - 1.40 04/20/2016 [facility] CHEM PANEL BUN 11 7 - 22 04/20/2016 [facility] CHEM PANEL Sodium Lvl 140 135 - 145 04/20/2016 [facility] CHEM PANEL Chloride Lvl 106 95 - 109 04/20/2016 [facility] CHEM PANEL Potassium Lvl 3.7 3.5 - 5.1 04/20/2016 [facility] CHEM PANEL Glucose Lvl 97 70 - 99 04/20/2016 [facility] CHEM PANEL Globulin 4.3 2.7 - 4.2 04/20/2016 [facility] CHEM PANEL A/G Ratio 0.7 0.7 - 1.6 04/20/2016 [facility] CHEM PANEL B/C Ratio 12 6 - 25 04/20/2016 [facility] CHEM PANEL AGAP 11.7 10.0 - 20.0 04/20/2016 [facility] CHEM PANEL Lactic Acid Lvl 0.8 0.5 - 2.2 04/20/2016 [facility] HEMATOLOGY WBC 6.7 3.7 - 10.4 04/20/2016 [facility] HEMATOLOGY RBC 4.72 4.20 - 5.40 04/20/2016 [facility] HEMATOLOGY Hct 36.8 36.0 - 48.0 04/20/2016 [facility] Hgb 12.3 12.0 - 16.0 04/20/2016 [facility] HEMATOLOGY MCH 26.1 27.0 - 31.0 04/20/2016 [facility] HEMATOLOGY MCV 77.9 80.0 - 98.0 04/20/2016 [facility] MCHC 33.5 32.0 - 36.0 04/20/2016 [facility] HEMATOLOGY Platelet 252 133 - 450 04/20/2016 [facility] HEMATOLOGY RDW 15.6 11.5 - 14.5 04/20/2016 [facility] MPV 8.3 7.4 - 10.4 04/20/2016 [facility] HEMATOLOGY Segs 60.8 45.0 - 75.0 04/20/2016 [facility] HEMATOLOGY Monocytes 7.2 2.0 - 12.0 04/20/2016 [facility] Lymphocytes 27.9 20.0 - 40.0 04/20/2016 [facility] HEMATOLOGY Basophils 1.2 0.0 - 1.0 04/20/2016 [facility] Monocytes # 0.5 0.0 - 0.8 04/20/2016 [facility] HEMATOLOGY Lymphocytes # 1.9 1.0 - 5.5 04/20/2016 [facility] HEMATOLOGY Eosinophils 2.9 0.0 - 4.0 04/20/2016 [facility] Segs-Bands # 4.1 1.5 - 8.1 04/20/2016 [facility] HEMATOLOGY Eosinophils # 0.2 0.0 - 0.5 04/20/2016 [facility] Microcyte 1+ *ABN* (04/19/16 10:27 PM) None Seen 04/20/2016 [facility] HEMATOLOGY Basophils # 0.1 0.0 - 0.2 04/20/2016 [facility] VIRAL - SEROLOGY Influ B Negative (04/19/16 9:06 PM) Negative 04/20/2016 [facility] VIRAL - SEROLOGY Influ A Negative (04/19/16 9:06 PM) Negative 04/20/2016 [facility] URINE AND STOOL UA Urobilinogen <=1.0 mg/dL 0.1 - 1.0 01/07/2016 [facility] URINE AND STOOL UA Bacteria Occasional /HPF None Seen /HPF 01/07/2016 [facility] URINE AND STOOL UA RBC 7 0 - 2 01/07/2016 [facility] URINE AND STOOL UA WBC 8 0 - 5 01/07/2016 [facility] URINE AND STOOL UA Blood Negative (01/07/16 3:02 AM) Negative 01/07/2016 [facility] URINE AND STOOL UA Bili Negative *NA* (01/07/16 3:02 AM) Negative 01/07/2016 [facility] URINE AND STOOL UA Mucus Few /LPF None Seen /LPF 01/07/2016 [facility] URINE AND STOOL UA Sq Epi Many /LPF Few /LPF 01/07/2016 [facility] URINE AND STOOL UA Leuk Est Large *ABN* (01/07/16 3:02 AM) Negative 01/07/2016 [facility] URINE AND STOOL UA Nitrite Negative (01/07/16 3:02 AM) Negative 01/07/2016 [facility] URINE AND STOOL UA Turbidity Slight *ABN* (01/07/16 3:02 AM) Clear 01/07/2016 [facility] URINE AND STOOL UA Color Yellow *NA* (01/07/16 3:02 AM) Yellow 01/07/2016 [facility] URINE AND STOOL UA Ketones Negative mg/dL Negative mg/dL 01/07/2016 [facility] URINE AND STOOL UA Spec Grav 1.026 <=1.030 01/07/2016 [facility] URINE AND STOOL UA Glucose Negative mg/dL Negative mg/dL 01/07/2016 [facility] URINE AND STOOL UA Protein Negative mg/dL Negative mg/dL 01/07/2016 [facility] URINE AND STOOL UA pH 6.0 5.0 - 8.0 01/07/2016 [facility] URINE CHEM U Preg Negative (01/07/16 3:02 AM) Negative 01/07/2016 [facility] CHEM PANEL Glucose Lvl 99 70 - 99 01/07/2016 [facility] CHEM PANEL eGFR 82 01/07/2016 Result [...] should be multiplied by the estimated BMI. [facility] CHEM PANEL BUN 14 7 - 22 01/07/2016 [facility] CHEM PANEL Creatinine Lvl 0.89 0.50 - 1.40 01/07/2016 [facility] CHEM PANEL Potassium Lvl 3.6 3.5 - 5.1 01/07/2016 [facility] CHEM PANEL Sodium Lvl 139 135 - 145 01/07/2016 [facility] CHEM PANEL Calcium Lvl 8.6 8.5 - 10.5 01/07/2016 [facility] CHEM PANEL Chloride Lvl 108 95 - 109 01/07/2016 [facility] CHEM PANEL CO2 23 24 - 32 01/07/2016 [facility] CHEM PANEL AGAP 11.6 10.0 - 20.0 01/07/2016 [facility] MCHC 33.1 32.0 - 36.0 01/07/2016 [facility] RDW 14.5 11.5 - 14.5 01/07/2016 [facility] Platelet 315 133 - 450 01/07/2016 [facility] MPV 8.1 7.4 - 10.4 01/07/2016 [facility] MCV 80.4 80.0 - 98.0 01/07/2016 [facility] MCH 26.6 27.0 - 31.0 01/07/2016 [facility] Hct 38.7 36.0 - 48.0 01/07/2016 [facility] RBC 4.82 4.20 - 5.40 01/07/2016 [facility] Hgb 12.8 12.0 - 16.0 01/07/2016 [facility] WBC 14.6 3.7 - 10.4 01/07/2016 [facility] Segs-Bands # 10.9 1.5 - 8.1 01/07/2016 [facility] Lymphocytes # 2.7 1.0 - 5.5 01/07/2016 [facility] Monocytes # 0.7 0.0 - 0.8 01/07/2016 [facility] HEMATOLOGY Eosinophils # 0.1 0.0 - 0.5 01/07/2016 [facility] HEMATOLOGY Lymphocytes 18.5 20.0 - 40.0 01/07/2016 [facility] HEMATOLOGY Eosinophils 0.9 0.0 - 4.0 01/07/2016 [facility] HEMATOLOGY Segs 74.8 45.0 - 75.0 01/07/2016 [facility] HEMATOLOGY Monocytes 4.8 2.0 - 12.0 01/07/2016 [facility] HEMATOLOGY Basophils 1.0 0.0 - 1.0 01/07/2016 [facility] HEMATOLOGY Basophils # 0.1 0.0 - 0.2 01/07/2016 [facility] CHEM PANEL eGFR 69 12/20/2015 Result [...] should be multiplied by the estimated BMI. [facility] CHEM PANEL BUN 11 7 - 22 12/20/2015 [facility] CHEM PANEL Glucose Lvl 92 70 - 99 12/20/2015 [facility] CHEM PANEL Calcium Lvl 8.7 8.5 - 10.5 12/20/2015 [facility] CHEM PANEL Sodium Lvl 141 135 - 145 12/20/2015 [facility] CHEM PANEL Creatinine Lvl 1.02 0.50 - 1.40 12/20/2015 [facility] CHEM PANEL Potassium Lvl 3.9 3.5 - 5.1 12/20/2015 [facility] CHEM PANEL CO2 26 24 - 32 12/20/2015 [facility] CHEM PANEL Chloride Lvl 106 95 - 109 12/20/2015 [facility] CHEM PANEL Alk Phos 110 39 - 136 12/20/2015 [facility] CHEM PANEL Bili Total 0.3 0.2 - 1.3 12/20/2015 [facility] CHEM PANEL Total Protein 7.3 6.4 - 8.4 12/20/2015 [facility] CHEM PANEL Albumin Lvl 3.3 3.5 - 5.0 12/20/2015 [facility] CHEM PANEL ALT 27 0 - 65 12/20/2015 [facility] CHEM PANEL AST 17 0 - 37 12/20/2015 [facility] CHEM PANEL A/G Ratio 0.8 0.7 - 1.6 12/20/2015 [facility] CHEM PANEL AGAP 12.9 10.0 - 20.0 12/20/2015 [facility] CHEM PANEL Globulin 4.0 2.0 - 4.0 12/20/2015 [facility] CHEM PANEL B/C Ratio 11 6 - 25 12/20/2015 [facility] HEMATOLOGY MPV 8.2 7.4 - 10.4 12/20/2015 [facility] HEMATOLOGY Platelet 309 133 - 450 12/20/2015 [facility] HEMATOLOGY MCH 26.8 27.0 - 31.0 12/20/2015 [facility] HEMATOLOGY MCV 81.3 80.0 - 98.0 12/20/2015 [facility] HEMATOLOGY RDW 14.3 11.5 - 14.5 12/20/2015 [facility] HEMATOLOGY MCHC 32.9 32.0 - 36.0 12/20/2015 [facility] HEMATOLOGY WBC 16.6 3.7 - 10.4 12/20/2015 [facility] HEMATOLOGY RBC 4.87 4.20 - 5.40 12/20/2015 [facility] HEMATOLOGY Hct 39.6 36.0 - 48.0 12/20/2015 [facility] HEMATOLOGY Hgb 13.0 12.0 - 16.0 12/20/2015 [facility] HEMATOLOGY Basophils # 0.2 0.0 - 0.2 12/20/2015 [facility] HEMATOLOGY Segs-Bands # 13.1 1.5 - 8.1 12/20/2015 [facility] HEMATOLOGY Monocytes 3.5 2.0 - 12.0 12/20/2015 [facility] HEMATOLOGY Eosinophils 0.7 0.0 - 4.0 12/20/2015 [facility] HEMATOLOGY Basophils 1.1 0.0 - 1.0 12/20/2015 [facility] HEMATOLOGY Segs 79.3 45.0 - 75.0 12/20/2015 [facility] HEMATOLOGY Lymphocytes 15.4 20.0 - 40.0 12/20/2015 [facility] HEMATOLOGY Lymphocytes # 2.5 1.0 - 5.5 12/20/2015 [facility] HEMATOLOGY Eosinophils # 0.1 0.0 - 0.5 12/20/2015 [facility] HEMATOLOGY Monocytes # 0.6 0.0 - 0.8 12/20/2015 [facility] URINE AND STOOL UA Urobilinogen <=1.0 mg/dL 0.1 - 1.0 12/20/2015 [facility] URINE AND STOOL UA Sq Epi Occasional /LPF Few /LPF 12/20/2015 [facility] URINE AND STOOL UA WBC 2 0 - 5 12/20/2015 [facility] URINE AND STOOL UA Leuk Est Small *ABN* (12/20/15 1:23 AM) Negative 12/20/2015 [facility] URINE AND STOOL UA Ketones Trace mg/dL Negative mg/dL 12/20/2015 [facility] URINE AND STOOL UA Bili Negative *NA* (12/20/15 1:23 AM) Negative 12/20/2015 [facility] URINE AND STOOL UA Glucose Negative mg/dL Negative mg/dL 12/20/2015 [facility] URINE AND STOOL UA Bacteria Occasional /HPF None Seen /HPF 12/20/2015 [facility] URINE AND STOOL UA Mucus Many /LPF None Seen /LPF 12/20/2015 [facility] URINE AND STOOL UA RBC 3 0 - 2 12/20/2015 [facility] URINE AND STOOL UA Color Yellow *NA* (12/20/15 1:23 AM) Yellow 12/20/2015 [facility] URINE AND STOOL UA Turbidity Clear (12/20/15 1:23 AM) Clear 12/20/2015 [facility] URINE AND STOOL UA Blood Large *ABN* (12/20/15 1:23 AM) Negative 12/20/2015 [facility] URINE AND STOOL UA Nitrite Negative (12/20/15 1:23 AM) Negative 12/20/2015 [facility] URINE AND STOOL UA Protein Negative mg/dL Negative mg/dL 12/20/2015 [facility] URINE AND STOOL UA Spec Grav 1.026 <=1.030 12/20/2015 [facility] URINE AND STOOL UA pH 5.0 5.0 - 8.0 12/20/2015 [facility] URINE CHEM U Preg Negative (12/20/15 1:23 AM) Negative 12/20/2015 [facility] CHEMISTRY AGAP 11.9 10.0 - 20.0 07/17/2013 Normal [facility] CHEMISTRY eGFR 44 07/17/2013 <sup>1</sup>Result Comment: [...] should be multiplied by the estimated BMI. [facility] CHEMISTRY Chloride Lvl 106 95 - 109 07/17/2013 Normal [facility] CHEMISTRY Sodium Lvl 140 135 - 145 07/17/2013 Normal [facility] CHEMISTRY Potassium Lvl 3.9 3.5 - 5.1 07/17/2013 Normal [facility] CHEMISTRY Calcium Lvl 8.8 8.5 - 10.5 07/17/2013 Normal [facility] CHEMISTRY CO2 26 24 - 32 07/17/2013 Normal [facility] CHEMISTRY Glucose Lvl 107 70 - 99 07/17/2013 [place] <sup>2</sup>Interpretive Data: Adult reference range values reflect the clinical guidelines
of the [employer]. [facility] CHEMISTRY BUN 15 7 - 22 07/17/2013 Normal [facility] CHEMISTRY Creatinine Lvl 1.5 0.5 - 1.4 07/17/2013 [facility] HEMATOLOGY Monocytes 2.9 2.0 - 12.0 07/17/2013 Normal [facility] HEMATOLOGY Lymphocytes 18.8 20.0 - 40.0 07/17/2013 LOW [facility] HEMATOLOGY Basophils 0.1 0.0 - 1.0 07/17/2013 Normal [facility] HEMATOLOGY Eosinophils 0.1 0.0 - 4.0 07/17/2013 Normal [facility] HEMATOLOGY Segs-Bands # 4.8 1.5 - 8.1 07/17/2013 Normal [facility] HEMATOLOGY Segs 78.1 45.0 - 75.0 07/17/2013 [place] [facility] HEMATOLOGY Basophils # 0.0 0.0 - 0.2 07/17/2013 Normal [facility] HEMATOLOGY Lymphocytes # 1.2 1.0 - 5.5 07/17/2013 Normal [facility] HEMATOLOGY Eosinophils # 0.0 0.0 - 0.5 07/17/2013 Normal [facility] HEMATOLOGY Monocytes # 0.2 0.0 - 0.8 07/17/2013 Normal [facility] HEMATOLOGY RBC X 10x6 4.71 4.20 - 5.40 07/17/2013 Normal [facility] HEMATOLOGY WBC X 10x3 6.1 3.7 - 10.4 07/17/2013 Normal [facility] HEMATOLOGY Hct 37.6 36.0 - 48.0 07/17/2013 Normal [facility] HEMATOLOGY Hgb 12.3 12.0 - 16.0 07/17/2013 Normal [facility] HEMATOLOGY MCV 79.9 81.0 - 99.0 07/17/2013 LOW [facility] HEMATOLOGY MCHC 32.8 32.0 - 36.0 07/17/2013 Normal [facility] HEMATOLOGY MCH 26.2 27.0 - 31.0 07/17/2013 LOW [facility] HEMATOLOGY RDW 15.1 11.5 - 14.5 07/17/2013 [place] [facility] HEMATOLOGY MPV 8.1 7.4 - 10.4 07/17/2013 Normal [facility] HEMATOLOGY Platelet 289 133 - 450 07/17/2013 Normal [facility] (07/17/2013 11:08:00) Negative 07/17/2013 Normal [facility] CHEMISTRY CK MB Index <2.2 0.0 - 2.5 07/02/2012 Normal [facility] CHEMISTRY CK MB <0.5 0.5 - 3.6 07/02/2012 Normal [facility] CHEMISTRY Total CK 23 12 - 191 07/02/2012 Normal [facility] CHEMISTRY eGFR 73 07/02/2012 NA <sup>1</sup>Result [...] should be multiplied by the estimated BMI. [facility] CHEMISTRY Glucose Lvl 100 70 - 99 07/02/2012 [facility] <sup>2</sup>Interpretive Data: Adult reference range values reflect the clinical guidelines
of the [employer]. [facility] CHEMISTRY Sodium Lvl 139 135 - 145 07/02/2012 Normal [facility] CHEMISTRY Creatinine Lvl 1.0 0.5 - 1.4 07/02/2012 Normal [facility] CHEMISTRY BUN 12 7 - 22 07/02/2012 Normal [facility] CHEMISTRY ALT 18 0 - 65 07/02/2012 Normal [facility] CHEMISTRY Alk Phos 99 39 - 136 07/02/2012 Normal [facility] CHEMISTRY Albumin Lvl 3.6 3.5 - 5.0 07/02/2012 Normal [facility] CHEMISTRY Bili Total 0.2 0.2 - 1.3 07/02/2012 Normal [facility] CHEMISTRY AST 11 0 - 37 07/02/2012 Normal [facility] CHEMISTRY Chloride Lvl 104 95 - 109 07/02/2012 Normal [facility] CHEMISTRY Potassium Lvl 3.7 3.5 - 5.1 07/02/2012 Normal [facility] CHEMISTRY Total Protein 7.8 6.4 - 8.4 07/02/2012 Normal [facility] CHEMISTRY Calcium Lvl 9.3 8.5 - 10.5 07/02/2012 Normal [facility] CHEMISTRY CO2 28 24 - 32 07/02/2012 Normal [facility] CHEMISTRY Globulin 4.2 2.0 - 4.0 07/02/2012 [facility] CHEMISTRY B/C Ratio 12 6 - 25 07/02/2012 Normal [facility] CHEMISTRY AGAP 10.7 10.0 - 20.0 07/02/2012 Normal [facility] CHEMISTRY A/G Ratio 0.9 0.7 - 1.6 07/02/2012 Normal [facility] CHEMISTRY Troponin-I <0.02 0.00 - 0.40 07/02/2012 Normal [facility] HEMATOLOGY Monocytes # 0.5 0.0 - 0.8 07/02/2012 Normal [facility] HEMATOLOGY Lymphocytes # 2.6 1.0 - 5.5 07/02/2012 Normal [facility] HEMATOLOGY Eosinophils 0.6 0.0 - 4.0 07/02/2012 Normal [facility] Segs-Bands # 9.7 1.5 - 8.1 07/02/2012 HI [facility] HEMATOLOGY Basophils 2.1 0.0 - 1.0 07/02/2012 HI [facility] HEMATOLOGY Basophils # 0.3 0.0 - 0.2 07/02/2012 HI [facility] HEMATOLOGY Eosinophils # 0.1 0.0 - 0.5 07/02/2012 Normal [facility] Segs 73.5 45.0 - 75.0 07/02/2012 Normal [facility] Lymphocytes 20.0 20.0 - 40.0 07/02/2012 Normal [facility] Monocytes 3.8 2.0 - 12.0 07/02/2012 Normal [facility] PTT 29.5 22.9 - 35.8 07/02/2012 Normal <sup>5</sup>Interpretive Data: Heparin Therapeutic Range: 57 - 92 Seconds [facility] PT 13.5 12.0 - 14.7 07/02/2012 Normal [facility] INR 1.01 0.85 - 1.17 07/02/2012 Normal <sup>3</sup>Interpretive Data: RECOMMENDED RANGES FOR PROTIME INR:
2.0-3.0 for most medical and surgical thromboembolic states.
2.5-3.5 for artificial heart valves and recurrent embolism.

INR SHOULD BE USED ONLY FOR PATIENTS ON STABLE ANTICOAGULANT THERAPY. [facility] D-Dimer 4 *ABN* (07/01/2012 22:20:00) 07/02/2012 ABN <sup>4</sup>Interpretive Data: In DIC, quantitative D-Dimer is generally greater than
0.66 ug/mL FEU. Values of quantitative D-Dimer less than
0.40 ug/mL FEU have been reported to be associated with a low
probability of deep vein thrombosis/pulmonary embolism.
This test alone should not be used to rule out DVT/PE. [facility] WBC 13.2 3.7 - 10.4 07/02/2012 HI [facility] RDW 15.1 11.5 - 14.5 07/02/2012 HI [facility] MCHC 33.8 32.0 - 36.0 07/02/2012 Normal [facility] HEMATOLOGY RBC 4.87 4.20 - 5.40 07/02/2012 Normal [facility] HEMATOLOGY MCH 26.5 27.0 - 31.0 07/02/2012 LOW [facility] HEMATOLOGY MCV 78.4 81.0 - 99.0 07/02/2012 [facility] HEMATOLOGY Hct 38.2 36.0 - 48.0 07/02/2012 Normal [facility] HEMATOLOGY Hgb 12.9 12.0 - 16.0 07/02/2012 Normal [facility] HEMATOLOGY Platelet 320 133 - 450 07/02/2012 Normal [facility] HEMATOLOGY MPV 8.4 7.4 - 10.4 07/02/2012 Normal [facility] CHEMISTRY Magnesium Lvl 2.2 1.8 - 2.4 04/25/2012 Normal [facility] CHEMISTRY eGFR 113 04/25/2012 NA <sup>2</sup>Result [...] should be multiplied by the estimated BMI. [facility] CHEMISTRY Potassium Lvl 4.5 3.5 - 5.1 04/25/2012 Normal [facility] CHEMISTRY Calcium Lvl 8.2 8.5 - 10.5 04/25/2012 LOW [facility] CHEMISTRY CO2 29 24 - 32 04/25/2012 Normal [facility] CHEMISTRY Chloride Lvl 108 95 - 109 04/25/2012 Normal [facility] CHEMISTRY Sodium Lvl 142 135 - 145 04/25/2012 Normal [facility] CHEMISTRY BUN 13 7 - 22 04/25/2012 Normal [facility] CHEMISTRY Glucose Lvl 192 70 - 99 04/25/2012 HI <sup>5</sup>Interpretive Data: Adult reference range values reflect the clinical guidelines
of the [employer] [employer]. [facility] CHEMISTRY Creatinine Lvl 0.7 0.5 - 1.4 04/25/2012 Normal [facility] CHEMISTRY AGAP 9.5 10.0 - 20.0 04/25/2012 [facility] HEMATOLOGY PT 14.9 12.0 - 14.7 04/25/2012 [facility] HEMATOLOGY INR 1.15 0.85 - 1.17 04/25/2012 Normal <sup>9</sup>Interpretive Data: RECOMMENDED RANGES FOR PROTIME INR:
2.0-3.0 for most medical and surgical thromboembolic states.
2.5-3.5 for artificial heart valves and recurrent embolism.

INR SHOULD BE USED ONLY FOR PATIENTS ON STABLE ANTICOAGULANT THERAPY. [facility] HEMATOLOGY MPV 8.5 7.4 - 10.4 04/25/2012 Normal [facility] HEMATOLOGY Platelet 279 133 - 450 04/25/2012 Normal [facility] HEMATOLOGY RDW 16.2 11.5 - 14.5 04/25/2012 [facility] HEMATOLOGY MCHC 34.2 32.0 - 36.0 04/25/2012 Normal [facility] HEMATOLOGY Hgb 10.5 12.0 - 16.0 04/25/2012 [facility] HEMATOLOGY WBC 11.8 3.7 - 10.4 04/25/2012 [facility] HEMATOLOGY Hct 30.9 36.0 - 48.0 04/25/2012 [facility] HEMATOLOGY MCV 80.4 81.0 - 99.0 04/25/2012 [facility] HEMATOLOGY RBC 3.84 4.20 - 5.40 04/25/2012 [facility] HEMATOLOGY MCH 27.5 27.0 - 31.0 04/25/2012 Normal [facility] HEMATOLOGY Eosinophils # 0.0 0.0 - 0.5 04/25/2012 Normal [facility] HEMATOLOGY Lymphocytes # 1.0 1.0 - 5.5 04/25/2012 Normal [facility] HEMATOLOGY Monocytes # 0.4 0.0 - 0.8 04/25/2012 [facility] HEMATOLOGY Segs-Bands # 10.4 1.5 - 8.1 04/25/2012 [facility] HEMATOLOGY Eosinophils 0.0 0.0 - 4.0 04/25/2012 [facility] HEMATOLOGY Basophils 0.1 0.0 - 1.0 04/25/2012 Normal [facility] HEMATOLOGY Basophils # 0.0 0.0 - 0.2 04/25/2012 Normal [facility] HEMATOLOGY Monocytes 3.1 2.0 - 12.0 04/25/2012 Normal [facility] HEMATOLOGY Segs 88.7 45.0 - 75.0 04/25/2012 HI [facility] HEMATOLOGY Lymphocytes 8.1 20.0 - 40.0 04/25/2012 LOW [facility] CHEMISTRY FiO2 Art 21.0 04/24/2012 NA [facility] CHEMISTRY Mode Art Rm Air (04/24/2012 14:25:00) 04/24/2012 Normal [facility] CHEMISTRY Allens Art Positive (04/24/2012 14:25:00) 04/24/2012 Normal [facility] CHEMISTRY Site Art Right Ra (04/24/2012 14:25:00) 04/24/2012 Normal [facility] CHEMISTRY HCO3 Art 27 22 - 26 04/24/2012 HI [facility] CHEMISTRY O2 Sat Art 93.3 95.0 - 100.0 04/24/2012 LOW [facility] CHEMISTRY BE Art 2 -2-2 - 2 04/24/2012 Normal [facility] CHEMISTRY pH Art 7.40 7.35 - 7.45 04/24/2012 Normal [facility] CHEMISTRY pO2 Art 65 80 - 100 04/24/2012 LOW [facility] CHEMISTRY pCO2 Art 45 35 - 45 04/24/2012 Normal [facility] HEMATOLOGY PT 15.9 12.0 - 14.7 04/24/2012 HI [facility] HEMATOLOGY INR 1.25 0.85 - 1.17 04/24/2012 HI <sup>10</sup>Interpretive Data: RECOMMENDED RANGES FOR PROTIME INR:
2.0-3.0 for most medical and surgical thromboembolic states.
2.5-3.5 for artificial heart valves and recurrent embolism.

INR SHOULD BE USED ONLY FOR PATIENTS ON STABLE ANTICOAGULANT THERAPY. [facility] CHEMISTRY eGFR 96 04/24/2012 NA <sup>3</sup>Result [...] should be multiplied by the estimated BMI. [facility] CHEMISTRY Calcium Lvl 8.3 8.5 - 10.5 04/24/2012 LOW [facility] CHEMISTRY Potassium Lvl 4.7 3.5 - 5.1 04/24/2012 Normal [facility] CHEMISTRY CO2 28 24 - 32 04/24/2012 Normal [facility] CHEMISTRY Chloride Lvl 109 95 - 109 04/24/2012 Normal [facility] CHEMISTRY BUN 11 7 - 22 04/24/2012 Normal [facility] CHEMISTRY Glucose Lvl 143 70 - 99 04/24/2012 HI <sup>6</sup>Interpretive Data: Adult reference range values reflect the clinical guidelines
of the [place] [employer]. [facility] CHEMISTRY Creatinine Lvl 0.8 0.5 - 1.4 04/24/2012 Normal [facility] CHEMISTRY Sodium Lvl 141 135 - 145 04/24/2012 Normal [facility] CHEMISTRY AGAP 8.7 10.0 - 20.0 04/24/2012 LOW [facility] CHEMISTRY Magnesium Lvl 2.0 1.8 - 2.4 04/24/2012 Normal [facility] HEMATOLOGY Lymphocytes 6.3 20.0 - 40.0 04/24/2012 LOW [facility] HEMATOLOGY Segs 90.4 45.0 - 75.0 04/24/2012 [facility] HEMATOLOGY Eosinophils 0.0 0.0 - 4.0 04/24/2012 Normal [facility] HEMATOLOGY Monocytes 3.3 2.0 - 12.0 04/24/2012 Normal [facility] HEMATOLOGY Basophils # 0.0 0.0 - 0.2 04/24/2012 Normal [facility] HEMATOLOGY Lymphocytes # 1.0 1.0 - 5.5 04/24/2012 Normal [facility] HEMATOLOGY Segs-Bands # 14.7 1.5 - 8.1 04/24/2012 [facility] HEMATOLOGY Eosinophils # 0.0 0.0 - 0.5 04/24/2012 Normal [facility] HEMATOLOGY Monocytes # 0.5 0.0 - 0.8 04/24/2012 Normal [facility] HEMATOLOGY Basophils 0.0 0.0 - 1.0 04/24/2012 Normal [facility] HEMATOLOGY Hgb 10.5 12.0 - 16.0 04/24/2012 LOW [facility] HEMATOLOGY RBC 3.84 4.20 - 5.40 [...] Platelet 287 133 - 450 04/24/2012 Normal [facility] HEMATOLOGY MPV 8.8 7.4 - 10.4 [...] AGAP 11.1 10.0 - 20.0 04/23/2012 Normal [facility] CHEMISTRY eGFR 83 04/23/2012 NA <sup>4</sup>Result [...] should be multiplied by the estimated BMI. [facility] CHEMISTRY Calcium Lvl 8.9 8.5 - 10.5 04/23/2012 Normal [facility] CHEMISTRY CO2 27 24 - 32 04/23/2012 Normal [facility] CHEMISTRY Potassium Lvl 4.1 3.5 - 5.1 04/23/2012 Normal [facility] CHEMISTRY Chloride Lvl 106 95 - 109 04/23/2012 Normal [facility] CHEMISTRY Sodium Lvl 140 135 - 145 04/23/2012 Normal [facility] CHEMISTRY Glucose Lvl 163 70 - 99 04/23/2012 HI <sup>7</sup>Interpretive Data: Adult reference range values reflect the clinical guidelines
of the [employer] [employer]. [facility] CHEMISTRY Creatinine Lvl 0.9 0.5 - 1.4 04/23/2012 Normal [facility] CHEMISTRY BUN 8 7 - 22 04/23/2012 Normal [facility] HEMATOLOGY MCH 27.5 27.0 - 31.0 04/23/2012 Normal [facility] HEMATOLOGY MCV 79.5 81.0 - 99.0 04/23/2012 LOW [facility] HEMATOLOGY RDW 15.8 11.5 - 14.5 04/23/2012 HI [facility] HEMATOLOGY MPV 8.5 7.4 - 10.4 04/23/2012 Normal [facility] HEMATOLOGY Platelet 258 133 - 450 04/23/2012 Normal [facility] HEMATOLOGY Hct 30.7 36.0 - 48.0 04/23/2012 LOW [facility] HEMATOLOGY MCHC 34.5 32.0 - 36.0 04/23/2012 Normal [facility] HEMATOLOGY WBC 8.9 3.7 - 10.4 04/23/2012 Normal [facility] HEMATOLOGY RBC 3.86 4.20 - 5.40 04/23/2012 LOW [facility] HEMATOLOGY Hgb 10.6 12.0 - 16.0 04/23/2012 LOW [facility] HEMATOLOGY Segs-Bands # 8.2 1.5 - 8.1 04/23/2012 HI [facility] HEMATOLOGY Basophils # 0.0 0.0 - 0.2 04/23/2012 Normal [facility] HEMATOLOGY Eosinophils # 0.0 0.0 - 0.5 04/23/2012 Normal [facility] HEMATOLOGY Monocytes # 0.2 0.0 - 0.8 04/23/2012 Normal [facility] HEMATOLOGY Lymphocytes # 0.6 1.0 - 5.5 04/23/2012 LOW [facility] HEMATOLOGY Segs 91.5 45.0 - 75.0 04/23/2012 [facility] HEMATOLOGY Basophils 0.5 0.0 - 1.0 04/23/2012 Normal [facility] HEMATOLOGY Eosinophils 0.0 0.0 - 4.0 04/23/2012 Normal [facility] HEMATOLOGY Monocytes 1.7 2.0 - 12.0 04/23/2012 LOW [facility] HEMATOLOGY Lymphocytes 6.3 20.0 - 40.0 04/23/2012 LOW [facility] HEMATOLOGY PTT 44.2 22.9 - 35.8 04/23/2012 HI <sup>13</sup>Interpretive Data: Heparin Therapeutic Range: 57 - 92 Seconds [facility] HEMATOLOGY PT 14.5 12.0 - 14.7 04/23/2012 Normal [facility] HEMATOLOGY INR 1.11 0.85 - 1.17 04/23/2012 Normal <sup>11</sup>Interpretive Data: RECOMMENDED RANGES FOR PROTIME INR:
2.0-3.0 for most medical and surgical thromboembolic states.
2.5-3.5 for artificial heart valves and recurrent embolism.

INR SHOULD BE USED ONLY FOR PATIENTS ON STABLE ANTICOAGULANT THERAPY. [facility] Microbiology Gram Stain 04/22/2012 [facility] Microbiology Culture: Respiratory w/Gram Stain 04/22/2012 [facility] HEMATOLOGY D-Dimer 0.47 04/22/2012 NA <sup>12</sup>Interpretive Data: In DIC, quantitative D-Dimer is generally greater than
0.66 ug/mL FEU. Values of quantitative D-Dimer less than
0.40 ug/mL FEU have been reported to be associated with a low
probability of deep vein thrombosis/pulmonary embolism.
This test alone should not be used to rule out DVT/PE. [facility] BACTERIAL - SEROLOGY U S pneumo Ag Negative (04/22/2012 09:30:00) Negative 04/22/2012 Normal [facility] MICRO MISC - SEROLOGY U Legion Ag Negative 1 (04/22/2012 09:30:00) Negative 04/22/2012 Normal <sup>1</sup>Interpretive Data: This kit tests for Legionella pneumophila Serogroup 1 Antigen. [facility] Microbiology Culture: Urine 04/22/2012 [facility] CHEMISTRY Ferritin Lvl 58 5 - 204 04/22/2012 Normal [facility] CHEMISTRY Iron 34 30 - 160 04/22/2012 Normal [facility] Microbiology Culture: Blood 04/22/2012 [facility] Microbiology Culture: Blood 04/22/2012 [facility] CHEMISTRY Allens Art N/A (04/22/2012 07:38:00) 04/22/2012 Normal [facility] CHEMISTRY Mode Art Rm Air (04/22/2012 07:38:00) 04/22/2012 Normal [facility] CHEMISTRY pH Art 7.44 7.35 - 7.45 04/22/2012 Normal [facility] CHEMISTRY pCO2 Art 40 35 - 45 04/22/2012 Normal [facility] CHEMISTRY pO2 Art 60 80 - 100 04/22/2012 CRIT <sup>8</sup>Result Comment: Critical Result(s) called to at 04/22/2012 07:40:31 [employer] by Reece,CONNOR. Read back OK. [facility] CHEMISTRY HCO3 Art 26 22 - 26 04/22/2012 Normal [facility] CHEMISTRY BE Art 2 -2-2 - 2 04/22/2012 Normal [facility] CHEMISTRY O2 Sat Art 92.9 95.0 - 100.0 04/22/2012 LOW [facility] CHEMISTRY Site Art Right Br (04/22/2012 07:38:00) 04/22/2012 Normal [facility] CHEMISTRY A/G Ratio 0.9 0.7 - 1.6 04/22/2012 Normal [facility] CHEMISTRY B/C Ratio 8 6 - 25 04/22/2012 Normal [facility] CHEMISTRY Globulin 3.8 2.0 - 4.0 04/22/2012 Normal [facility] CHEMISTRY AST 20 0 - 37 04/22/2012 Normal [facility] CHEMISTRY ALT 19 0 - 65 04/22/2012 Normal [facility] CHEMISTRY Albumin Lvl 3.3 3.5 - 5.0 04/22/2012 LOW [facility] CHEMISTRY Total Protein 7.1 6.4 - 8.4 04/22/2012 Normal [facility] CHEMISTRY Bili Total 0.2 0.2 - 1.3 04/22/2012 Normal [facility] CHEMISTRY Alk Phos 91 39 - 136 04/22/2012 Normal [facility] CHEMISTRY S Preg Negative *NA* (04/22/2012 02:15:00) Negative 04/22/2012 NA [facility] HEMATOLOGY Protein S Func 109 54 - 137 04/22/2012 Normal [facility] HEMATOLOGY Protein C Func 172 72 - 147 04/22/2012 HI [facility] HEMATOLOGY PTT 35.4 22.9 - 35.8 04/22/2012 Normal <sup>14</sup>Interpretive Data: Heparin Therapeutic Range: 57 - 92 Seconds [facility] Pathology Reports No Data Provided for [...] of acute cardiopulmonary disease. SL: MARGARET 09/28/2018 [facility] 1view DX Clinical Indication:42 years Female with Coughing - persistent cough Comparison: Chest x-ray 07/28/2018 FINDINGS: Lines: None. The single frontal chest radiograph shows normal lung volumes. No interstitial or airspace opacities. No pleural effusion. No pneumothorax. Cardiac silhouette is normal. Pulmonary vasculature is normal. The trachea is midline. There are no acute osseous abnormalities noted. IMPRESSION: No acute cardiopulmonary abnormality. 07/31/2018 [facility] 1view DX Clinical Indication: Shortness of breath. Comparison: 03/03/2018 FINDINGS: AP view of the chest submitted for interpretation. Lungs are clear. Heart size is normal. Central pulmonary vasculature appears normal. No effusion. No pneumothorax. No radiographically apparent acute osseous abnormality. IMPRESSION: 1. No radiographically apparent acute cardiopulmonary process. SL: [id number] 07/27/2018 [facility] Chest Pulmonary Embolism CTA Clinical Indication: [...] due to mild tracheomalacia SL: KPATEL-M 07/27/2018 [facility] ED Abdomen/Pelvis IV contrast only CT [...] Appendix within normal limits. SL: KPATEL-M 03/16/2018 [facility] Chest 2 views DX EXAM: Chest 2 views DX DATE: 03/03/2018 10:11 AM CDT INDICATION: - cough COMPARISON: 02/10/2018. IMPRESSION: Stable cardiac silhouette and mediastinum. No focal consolidation, significant pleural effusion or pneumothorax. SL: [id number] 03/03/2018 [facility] Chest 2 views DX PROCEDURE: Chest, [...] an acute cardiopulmonary process. SL: GERTRUDE 02/10/2018 [facility] Spine lumbar wo contrast MRI Spine [...] and moderate thecal sac stenosis. 11/18/2017 [facility] Chest Pulmonary Embolism CTA EXAM: CT CHEST [...] generated. IV contrast: 100 cc Omnipaque. Dose: LLG=632.95 mGy-cm FINDINGS: PULMONARY ARTERIES: No central or [...] abnormality. No pulmonary embolism. SL: [id number] 09/29/2017 [facility] Chest 1view DX EXAM: Chest 1view DX DATE: 09/29/2017 2:31 PM CDT INDICATION: - SOB COMPARISON: None. IMPRESSION: Stable cardiac silhouette and mediastinum. No focal consolidation, significant pleural effusion or pneumothorax. SL: [id number] 09/29/2017 [facility] Spine thoracic 2 views DX THORACIC SPINE RADIOGRAPH 2 VIEWS INDICATION: Posttraumatic thoracic spine pain COMPARISON: None DISCUSSION: Vertebral body alignment is within normal limits. The disc spaces are maintained. The bones appear well mineralized. No acute compression or displaced fractures are identified. The paravertebral soft tissues are grossly unremarkable. IMPRESSION: Unremarkable radiographic appearance of the thoracic spine. SL:16 07/21/2017 [facility] Spine lumbar 2 or 3 views [...] No fracture or subluxation SL: [id number] 07/21/2017 [facility] Spine cervical wo contrast CT EXAM: [...] or malalignment of the cervical spine. SL: [id number] 03/12/2017 [facility] Chest/Abdomen/Pelvis w IV contrast CT EXAM: [...] contrast: [address] Radiation Dose: CMS=6427.79 mGy-cm FINDINGS: CHEST LUNG PARENCHYMA AND PLEURA: [...] pneumonitis. 2. No acute osseous abnormality. SL: [id number] 03/12/2017 [facility] 1view DX Patient Name: JAROD MEYERS : 1975; Age: 41 years y/o Female MR: [id number] Study: Chest 1view DX 03/12/2017 3:41 PM [...] pulmonary infiltrates. Correlate clinically for pneumonia. SL: [id number] 03/12/2017 [facility] Pulmonary Embolism CTA PROCEDURE: CTA CHEST [...] IMPRESSION: Negative. END REPORT SL: [id number] 11/05/2016 [facility] 1view DX Exam: Chest X-Ray Clinical Indication: Chest pain. Technique: Frontal view of the chest is provided. Findings: Heart and mediastinum are normal. Lungs are clear. There are no pleural effusions. Impression: No acute intrathoracic disease. 11/04/2016 [facility] Abdomen AP DX ABDOMEN SUPINE CLINICAL [...] clinical diagnosis of constipation. SL: [id number] 05/17/2016 [facility] Pulmonary Embolism CTA Clinical Indication: Epigastric pain in left chest pain radiating to left arm, history of PE, cough and fever; Comparison: CT of the chest 07/02/2012 TECHNIQUE: Sequential trans-axial images were obtained thru the chest and upper abdomen after administration of iodinated contrast. Coronal and sagittal reconstructions were obtained. 75 cc of Omnipaque 350 was used for the exam. Dose: CGO=732 mGy-cm FINDINGS: LUNG PARENCHYMA AND PLEURA: There [...] pulmonary arterial hypertension. 4. Mild splenomegaly SL: [id number] 05/13/2016 [facility] 1view DX CHEST, 1 VIEW HISTORY: Fever; chest pain COMPARISON: 04/19/2016 FINDINGS: The lungs are clear. No pleural effusion or pneumothorax. Heart size normal. No acute osseous abnormality. SL: [id number] 05/13/2016 [facility] 2 views DX Two-view chest x-ray compared to 07/17/2013. History: Chest pain Comments: The trachea is midline. The cardiomediastinal silhouette is normal in size. No pneumonia. No pleural effusions or pneumothorax. Impression: No acute cardiopulmonary disease. 04/19/2016 [facility] Spine cervical 2 or 3 view [...] for fracture or subluxation. SL: ELVIA 01/07/2016 [facility] ED Abdomen/Pelvis IV contrast only CT [...] Please correlate with urinalysis. SL: MISSAEL 12/20/2015 [facility] Thoracic wo contrast MRI NAME: JAROD [...] or cord signal abnormality. SL: 24 02/17/2015 [facility] Outpatient Imaging [facility] Spine lumbar wo contrast MRI Name: [...] nerve roots. SL: ROSALINA CHAPPELL 53 02/17/2015 [facility] Outpatient Imaging [facility] Spine cervical wo contrast MRI Name: [...] right cord. SL: ROSALINA CHAPPELL 53 02/17/2015 [facility] Outpatient Imaging [facility] Renal Stone CT Name: JAROD MEYERS [...] IMPRESSION: Unremarkable renal stone CT. SL: 08/02/2013 [facility] Abdomen AP view Name: JAROD MEYERS [...] supine view of the abdomen. SL: 07/28/2013 [facility] Outpatient Imaging [facility] Chest 1view Name: JAROD MEYERS : [...] 1. Mild pulmonary vascular congestion. SL: 07/17/2013 [facility] Consultation Notes No Data Provided for This Section Discharge Summaries No Data Provided for This Section History and Physicals No Data Provided for This Section Vital Signs Vital Sign Value Date Comments Source Heart Rate 85 09/29/2018 [facility] Temperature Oral (F) 98.3 F 09/29/2018 [facility] Rate 20 09/29/2018 [facility] Systolic (mm Hg) 93 09/29/2018 [facility] Diastolic (mm Hg) 62 09/29/2018 [facility] Temperature Oral (F) 98.1 F 09/29/2018 [facility] Rate 20 09/29/2018 [facility] Heart Rate 87 09/29/2018 [facility] Systolic (mm Hg) 103 09/29/2018 [facility] Diastolic (mm Hg) 60 09/29/2018 [facility] Systolic (mm Hg) 126 09/29/2018 [facility] Diastolic (mm Hg) 81 09/29/2018 [facility] Temperature Oral (F) 100 F 09/29/2018 [facility] Respitory Rate 20 09/29/2018 [facility] Weight 143.182 09/28/2018 [facility] Height 175.26 cm 09/28/2018 [facility] BMI Calculated 46.61 09/28/2018 [facility] Heart Rate 118 09/28/2018 [facility] Heart Rate 74 08/02/2018 [facility] Temperature Oral (F) 98.5 F 08/02/2018 [facility] Systolic (mm Hg) 118 08/02/2018 [facility] Diastolic (mm Hg) 79 08/02/2018 [facility] Respitory Rate 18 08/02/2018 [facility] Temperature Oral (F) 97.7 F 08/02/2018 [facility] Systolic (mm Hg) 125 08/02/2018 [facility] Diastolic (mm Hg) 74 08/02/2018 [facility] Heart Rate 97 08/02/2018 [facility] Respitory Rate 18 08/02/2018 [facility] Heart Rate 75 08/02/2018 [facility] Systolic (mm Hg) 112 08/02/2018 [facility] Diastolic (mm Hg) 76 08/02/2018 [facility] Respitory Rate 18 08/02/2018 [facility] Temperature Oral (F) 98.2 F 08/02/2018 [facility] Weight 147.273 07/28/2018 [facility] Height 175.26 cm 07/28/2018 [facility] BMI Calculated 47.95 07/28/2018 [facility] Weight 147.273 07/28/2018 [facility] BMI Calculated 55.73 07/28/2018 [facility] Height 162.56 cm 07/28/2018 [facility] Systolic (mm Hg) 103 03/17/2018 [facility] Diastolic (mm Hg) 84 03/17/2018 [facility] Respitory Rate 25 03/17/2018 [facility] Temperature Oral (F) 98.5 F 03/17/2018 [facility] Systolic (mm Hg) 116 03/17/2018 [facility] Diastolic (mm Hg) 82 03/17/2018 [facility] Respitory Rate 21 03/17/2018 [facility] Systolic (mm Hg) 103 03/17/2018 [facility] Diastolic (mm Hg) 60 03/17/2018 [facility] Respitory Rate 17 03/17/2018 [facility] Weight 147.273 03/17/2018 [facility] Heart Rate 101 03/17/2018 [facility] Temperature Oral (F) 98.4 F 03/17/2018 [facility] Systolic (mm Hg) 115 03/03/2018 [facility] Diastolic (mm Hg) 77 03/03/2018 [facility] Respitory Rate 18 03/03/2018 [facility] Temperature Oral (F) 98.1 F 03/03/2018 [facility] Heart Rate 78 03/03/2018 [facility] Respitory Rate 16 03/03/2018 [facility] Heart Rate 84 03/03/2018 [facility] Temperature Oral (F) 98.1 F 03/03/2018 [facility] Systolic (mm Hg) 108 03/03/2018 [facility] Diastolic (mm Hg) 73 03/03/2018 [facility] Weight 147.273 03/03/2018 [facility] Height 175.26 cm 03/03/2018 [facility] BMI Calculated 47.95 03/03/2018 [facility] Temperature Oral (F) 98.4 F 03/03/2018 [facility] Respitory Rate 18 03/03/2018 [facility] Systolic (mm Hg) 133 03/03/2018 [facility] Diastolic (mm Hg) 91 03/03/2018 [facility] Heart Rate 106 03/03/2018 [facility] Systolic (mm Hg) 112 02/11/2018 [facility] Diastolic (mm Hg) 63 02/11/2018 [facility] Respitory Rate 17 02/11/2018 [facility] Systolic (mm Hg) 101 02/10/2018 [facility] Diastolic (mm Hg) 70 02/10/2018 [facility] Respitory Rate 18 02/10/2018 [facility] Temperature Oral (F) 97.9 F 02/10/2018 [facility] Heart Rate 94 02/10/2018 [facility] Weight 148.182 02/10/2018 [facility] Respitory Rate 22 02/10/2018 [facility] Systolic (mm Hg) 130 02/10/2018 [facility] Diastolic (mm Hg) 90 02/10/2018 [facility] Systolic (mm Hg) 121 09/29/2017 [facility] Diastolic (mm Hg) 83 09/29/2017 [facility] Respitory Rate 20 09/29/2017 [facility] Systolic (mm Hg) 114 09/29/2017 [facility] Diastolic (mm Hg) 88 09/29/2017 [facility] Respitory Rate 19 09/29/2017 [facility] Systolic (mm Hg) 137 09/29/2017 [facility] Diastolic (mm Hg) 81 09/29/2017 [facility] Weight 145.455 09/29/2017 [facility] Height 175.26 cm 09/29/2017 [facility] BMI Calculated 47.35 09/29/2017 [facility] Temperature Oral (F) 98.7 F 09/29/2017 [facility] Respitory Rate 20 09/29/2017 [facility] Heart Rate 103 09/29/2017 [facility] Temperature Oral (F) 97.9 F 08/18/2017 [facility] Weight 147.273 08/18/2017 [facility] Respitory Rate 22 08/18/2017 [facility] Systolic (mm Hg) 134 08/18/2017 [facility] Diastolic (mm Hg) 69 08/18/2017 [facility] Heart Rate 108 08/18/2017 [facility] Systolic (mm Hg) 110 07/22/2017 [facility] Diastolic (mm Hg) 70 07/22/2017 [facility] Respitory Rate 16 07/22/2017 [facility] Heart Rate 84 07/22/2017 [facility] Temperature Oral (F) 98.4 F 07/22/2017 [facility] Temperature Oral (F) 98.5 F 07/22/2017 [facility] Heart Rate 90 07/22/2017 [facility] Respitory Rate 16 07/22/2017 [facility] Systolic (mm Hg) 115 07/22/2017 [facility] Diastolic (mm Hg) 75 07/22/2017 [facility] Temperature Oral (F) 98.7 F 07/22/2017 [facility] Height 175.26 cm 07/22/2017 [facility] BMI Calculated 44.4 07/22/2017 [facility] Weight 136.364 07/22/2017 [facility] Respitory Rate 18 07/22/2017 [facility] Heart Rate 105 07/22/2017 [facility] Systolic (mm Hg) 111 07/22/2017 [facility] Diastolic (mm Hg) 73 07/22/2017 [facility] Temperature Oral (F) 98.0 F 03/15/2017 [facility] Heart Rate 97 03/15/2017 [facility] Respitory Rate 16 03/15/2017 [facility] Systolic (mm Hg) 124 03/15/2017 [facility] Diastolic (mm Hg) 79 03/15/2017 [facility] Respitory Rate 16 03/15/2017 [facility] Heart Rate 77 03/15/2017 [facility] Systolic (mm Hg) 116 03/15/2017 [facility] Diastolic (mm Hg) 77 03/15/2017 [facility] Respitory Rate 16 03/15/2017 [facility] Temperature Oral (F) 98.8 F 03/15/2017 [facility] Systolic (mm Hg) 118 03/15/2017 [facility] Diastolic (mm Hg) 65 03/15/2017 [facility] Temperature Oral (F) 99.3 F 03/15/2017 [facility] Heart Rate 94 03/15/2017 [facility] Weight 153.665 03/13/2017 [facility] BMI Calculated 50.03 03/13/2017 [facility] Height 175.26 cm 03/13/2017 [facility] Weight 125 03/12/2017 [facility] BMI Calculated 41.9 03/12/2017 [facility] Height 172.72 cm 03/12/2017 [facility] Systolic (mm Hg) 109 11/05/2016 [facility] Diastolic (mm Hg) 84 11/05/2016 [facility] Temperature Oral (F) 98.2 F 11/05/2016 [facility] Respitory Rate 16 11/05/2016 [facility] Weight 136.364 11/05/2016 [facility] Respitory Rate 18 11/05/2016 [facility] Heart Rate 115 11/05/2016 [facility] Temperature Oral (F) 98.4 F 11/05/2016 [facility] Systolic (mm Hg) 123 11/05/2016 [facility] Diastolic (mm Hg) 74 11/05/2016 [facility] Temperature Oral (F) 98.7 F 05/17/2016 [facility] Respitory Rate 18 05/17/2016 [facility] Systolic (mm Hg) 122 05/17/2016 [facility] Diastolic (mm Hg) 86 05/17/2016 [facility] Heart Rate 82 05/17/2016 [facility] Height 175.26 cm 05/17/2016 [facility] BMI Calculated 44.4 05/17/2016 [facility] Weight 136.364 05/17/2016 [facility] Temperature Oral (F) 98.8 F 05/17/2016 [facility] Heart Rate 102 05/17/2016 [facility] Systolic (mm Hg) 120 05/17/2016 [facility] Diastolic (mm Hg) 84 05/17/2016 [facility] Respitory Rate 20 05/17/2016 [facility] Temperature Oral (F) 98.3 F 05/13/2016 [facility] Respitory Rate 16 05/13/2016 [facility] Heart Rate 97 05/13/2016 [facility] Systolic (mm Hg) 107 05/13/2016 [facility] Diastolic (mm Hg) 56 05/13/2016 [facility] Respitory Rate 16 05/13/2016 [facility] Systolic (mm Hg) 101 05/13/2016 [facility] Diastolic (mm Hg) 70 05/13/2016 [facility] Heart Rate 103 05/13/2016 [facility] BMI Calculated 46.76 05/13/2016 [facility] Weight 143.636 05/13/2016 [facility] Height 175.26 cm 05/13/2016 [facility] Heart Rate 124 05/13/2016 [facility] Respitory Rate 19 05/13/2016 [facility] Temperature Oral (F) 99.3 F 05/13/2016 [facility] Systolic (mm Hg) 121 05/13/2016 [facility] Diastolic (mm Hg) 66 05/13/2016 [facility] Systolic (mm Hg) 122 04/20/2016 [facility] Diastolic (mm Hg) 75 04/20/2016 [facility] Respitory Rate 18 04/20/2016 [facility] Temperature Oral (F) 99.2 F 04/20/2016 [facility] Heart Rate 92 04/20/2016 [facility] Systolic (mm Hg) 110 04/20/2016 [facility] Diastolic (mm Hg) 69 04/20/2016 [facility] Respitory Rate 18 04/20/2016 [facility] Heart Rate 110 04/20/2016 [facility] Temperature Oral (F) 98 F 04/20/2016 [facility] Weight 140.909 04/20/2016 [facility] BMI Calculated 45.87 04/20/2016 [facility] Temperature Oral (F) 98.7 F 04/20/2016 [facility] Respitory Rate 18 04/20/2016 [facility] Systolic (mm Hg) 108 04/20/2016 [facility] Diastolic (mm Hg) 74 04/20/2016 [facility] Heart Rate 114 04/20/2016 [facility] Height 175.26 cm 04/20/2016 [facility] Systolic (mm Hg) 124 01/07/2016 [facility] Diastolic (mm Hg) 66 01/07/2016 [facility] Heart Rate 93 01/07/2016 [facility] Respitory Rate 18 01/07/2016 [facility] Temperature Oral (F) 98.4 F 01/07/2016 [facility] Respitory Rate 18 01/07/2016 [facility] Heart Rate 95 01/07/2016 [facility] Systolic (mm Hg) 130 01/07/2016 [facility] Diastolic (mm Hg) 70 01/07/2016 [facility] Respitory Rate 18 01/07/2016 [facility] Heart Rate 101 01/07/2016 [facility] Systolic (mm Hg) 100 01/07/2016 [facility] Diastolic (mm Hg) 59 01/07/2016 [facility] Weight 143.636 01/07/2016 [facility] Temperature Oral (F) 98.4 F 01/07/2016 [facility] BMI Calculated 48.15 01/07/2016 [facility] Height 172.72 cm 01/07/2016 [facility] Systolic (mm Hg) 126 12/20/2015 [facility] Diastolic (mm Hg) 72 12/20/2015 [facility] Temperature Oral (F) 98.2 F 12/20/2015 [facility] Heart Rate 85 12/20/2015 [facility] Respitory Rate 16 12/20/2015 [facility] Weight 140 12/20/2015 [facility] Height 172.72 cm 12/20/2015 [facility] Temperature Oral (F) 98.3 F 12/20/2015 [facility] BMI Calculated 46.93 12/20/2015 [facility] Heart Rate 105 12/20/2015 [facility] Respitory Rate 18 12/20/2015 [facility] Systolic (mm Hg) 125 12/20/2015 [facility] Diastolic (mm Hg) 77 12/20/2015 [facility] Temperature Oral (F) 98.2 F 06/22/2015 [facility] Respitory Rate 16 06/22/2015 [facility] Heart Rate 93 06/22/2015 [facility] Systolic (mm Hg) 126 06/22/2015 [facility] Diastolic (mm Hg) 87 06/22/2015 [facility] Weight 127.273 06/22/2015 [facility] Systolic (mm Hg) 137 06/22/2015 [facility] Diastolic (mm Hg) 84 06/22/2015 [facility] Respitory Rate 17 06/22/2015 [facility] Heart Rate 112 06/22/2015 [facility] Temperature Oral (F) 98.9 F 06/22/2015 [facility] Height 175.26 cm 06/22/2015 [facility] BMI Calculated 41.44 06/22/2015 [facility] Temperature Oral (F) 98.8 F 08/22/2014 [facility] Respitory Rate 20 08/22/2014 [facility] [...] 122.727 08/21/2014 [facility] BMI Calculated 38.82 08/21/2014 [facility] Heart Rate 84 01/12/2014 [facility] Respitory Rate 18 01/12/2014 [facility] Systolic (mm Hg) 122 01/12/2014 [facility] Diastolic (mm Hg) 72 01/12/2014 [facility] Height 177.8 cm 01/12/2014 [facility] BMI Calculated 40.26 01/12/2014 [facility] Weight 127.273 01/12/2014 [facility] Systolic (mm Hg) 123 01/12/2014 [facility] Diastolic (mm Hg) 72 01/12/2014 [facility] Heart Rate 89 01/12/2014 [facility] Temperature Oral (F) 98.4 F 01/12/2014 [facility] Respitory Rate 18 01/12/2014 [facility] BMI [...] DC Date Status Source Not Sent Emergency [id number] AYLA SIDDIQUI 04/20/2012 04/20/2012 [facility]charged [facility] Not Sent Emergency [id number] FRANCK LANDA 04/20/2012 04/21/2012 [facility]charged [facility] Not Sent Inpatient [id number] VALARIE MCQUEEN II 04/22/2012 04/25/2012 [facility]charged [facility] Not Sent DS [id number] ROSA KHAN 04/28/2012 04/28/2012 [facility] Not Sent Emergency [id number] SHERIF LARIOS 07/01/2012 07/02/2012 [facility]charged [facility] Not [facility] Emergency [id number] FRANCK LANDA 07/17/2013 07/17/2013 Discharged [facility] [id number] Gilbert Feng 07/28/2013 07/29/2013 [facility] Not Sent Emergency [id number] STEPHAN TORRES 08/02/2013 08/02/2013 Discharged [facility] [id number] Brown Motley Jr 09/28/2013 09/28/2013 [facility] Emergency Center [id number] Brown Motley Jr 01/12/2014 01/12/2014 [facility] Emergency [facility] [id number] Alec Magana 08/21/2014 08/22/2014 [facility] Emergency [facility] [id number] Franck Landa 08/22/2014 08/22/2014 [facility] Emergency [facility] [id number] Melo Meier 02/07/2015 02/07/2015 [facility] [id number] Kevin Callahan 02/17/2015 02/18/2015 [facility] Outpatient Imaging [facility] EC Emergency Center [id number] Hamida Leonlam 06/22/2015 06/22/2015 [facility] EC Emergency Center [id number] Mani Marjerad 12/20/2015 12/20/2015 [facility] Emergency Center [id number] Carroll Fine 01/07/2016 01/07/2016 [facility] Recurring [id number] Luis Felipe Haddad 03/08/2016 04/07/2016 [facility] Emergency [id number] Smita Pate 04/20/2016 04/20/2016 [facility] Emergency [id number] Jorge Sandoval 05/13/2016 05/13/2016 [facility] Emergency [id number] Alda Burdick 05/17/2016 05/17/2016 [facility] Emergency [id number] Hunterelan Felixon 11/05/2016 11/05/2016 [facility] Inpatient [id number] Cliftondestinee Phoenix 03/12/2017 03/15/2017 [facility] Emergency [id number] Franck Jane 07/22/2017 07/22/2017 [facility] Emergency [id number] Ortiz Jesus 08/18/2017 08/18/2017 [facility] Emergency [id number] Luba Crawford 09/29/2017 09/30/2017 [facility] [place] Out[facility] [id number] Messi Mendez 11/18/2017 11/19/2017 [facility] Emergency [id number] Ortiz Jesus 02/10/2018 02/11/2018 [facility] Emergency [id number] Ortiz Jesus 03/03/2018 03/03/2018 [facility] Emergency [id number] Irvin Rocha 03/17/2018 03/17/2018 [facility] Inpatient [id number] Brown Villeda Jr 07/28/2018 08/03/2018 [facility] Emergency [id number] Zbigniew Zepead 09/28/2018 09/29/2018 [facility] Procedures Procedure Code Date Perfomer Comments Source section [id number] [facility] Outpatient Imaging [facility] ORIF - Open reduction and internal fixation of fracture<sup>1</sup> [id number] left ankle [facility], [facility] Outpatient Imaging [facility] Assessment and Plan Assessment and Plan [...] BID 07/28/18 enoxaparin (Lovenox) 40 mg SUB-Q [id number] 08/01/18 furosemide (Lasix) 20 mg IVP Daily [...] discharged Outpatient pulmonary follow-up Patient okay to [place] home with above recommendations. Zane Vences MD [...] needed for cough. Ordered: Admit/Condition, 07/28/18 3:11:00 [employer], Status: Out Patient with Observation Services, Telemetry Capable Location, Expected LOS: 1 Midnight, Brown Swain MD, Admit MD Review/Approve Yes, Isolation: No Isolation/Standard Precautions, Acute bronchitis with... Chronic back pain PT/ OT, [place], morphine for breakthrough pain Heparin 1 to 2 midnights 08/03/2018 [facility] Extracted from:Title: Discharge Summary * Author: [...] with patient 5. Prophylaxis: Lovenox, Pepcid 6. [id number] IV fluids, heart healthy diet Deposition: Inpatient [...] above and pain control with as needed [place] and morphine -Asthma and COPD Acute on [...] 1smoking cessation education given, verbalized understanding 07/28/2018 [facility] Social History TypeResponse Alcohol Current, Type [...] Yes; Reg Smoking Cessation Counseling No 06/12/2013 [facility] Outpatient [facility] Social History TypeResponse Alcohol Current, Type Liquor. [...] Yes; Reg Smoking Cessation Counseling No 06/12/2013 [facility] Family History No Data Provided for This Section Advance Directives No Data Provided for This Section Functional Status No Data Provided for This Section
[2019-02-15] MEDS ORDERED: IPRATROPIUM BROMIDE 0.02% 2.5 ML NEB NEB STA (13:42)
--- NOTE | 2019-02-15 13:58 | NUR ---
PATIENT TO ROOM 7
[2019-02-15] MEDS ORDERED: ACETAMINOPHEN/CODEINE ELIX 120-12 MG/5 ML UDC NG ONE (14:00)
[2019-02-15] MEDS ORDERED: METHYLPREDNISOLONE SOD SUCC 125 MG/2ML VIAL IV NR (14:00)
[2019-02-15] MEDS: ALBUTEROL SULF 0.083% NEB SOLN 3 ML NEB NEB NR ×2 (14:08→15:47)
--- NOTE | 2019-02-15 14:34 | NUR ---
RECEIVED REPORT, ASSUMING CARE FROM DAJA Nicholson
--- NOTE | 2019-02-15 15:29 | NUR ---
R.T.CALLED FOR BREATHING TX (2ND )
[2019-02-15] MEDS ORDERED: IPRATROPIUM BROMIDE 0.02% 2.5 ML NEB NEB NR (15:30)
[2019-02-15] MEDS ORDERED: ALBUTEROL SULF 0.083% NEB SOLN 3 ML NEB NEB NR (15:30)
[2019-02-15] MEDS ORDERED: IPRATROPIUM BROMIDE 0.02% 2.5 ML NEB ONE (15:39)
[2019-02-15] MEDS ORDERED: ALBUTEROL SULF 0.083% NEB SOLN 3 ML NEB ONE (15:39)
[2019-02-15] MEDS: DEXAMETHASONE SOD PHOS 10 MG/1 ML VIAL INH NR ×2 (15:43→16:22)
--- NOTE | 2019-02-15 15:57 | Diagnostic Imaging Report ---
EXAMINATION: CHEST 2 VIEWS INDICATION: Difficulty breathing, cough. COMPARISON: Chest radiograph 02/11/2019. FINDINGS: TUBES and LINES: None. LUNGS: Lungs are well inflated. There is interval development of right infrahilar patchy opacity. No evidence of pulmonary edema. PLEURA: No pleural effusion or pneumothorax. HEART AND MEDIASTINUM: The cardiomediastinal silhouette is unremarkable. BONES AND SOFT TISSUES: No acute osseous lesion. Soft tissues are unremarkable. UPPER ABDOMEN: No free air under the diaphragm. IMPRESSION: Interval development of right infrahilar patchy opacity, which may reflect atelectasis or pneumonia in the appropriate clinical setting. Suggest follow-up chest radiograph in 6-8 weeks to assess for resolution. Signed by: Dr. Andrea Hernandez MD on 02/15/2019 3:54 PM
--- NOTE | 2019-02-15 16:23 | NUR ---
PATIENT TOLERATING BREATHING TX. SITITNG UP
[2019-02-15] MEDS ORDERED: CEFTRIAXONE SOD 1 GM/NS 50 ML 50 ML IV ONE (18:15)
[2019-02-15] MEDS ORDERED: AZITHROMYCIN 500MG/NS 250 ML 250 ML IV ONE (18:15)
[2019-02-15] MEDS ORDERED: SODIUM CHLORIDE 0.9% 1000ML 1,000 ML IV STA (18:57)
[2019-02-15] MEDS: ALBUTEROL SULF 0.083% NEB SOLN 3 ML NEB NEB SCH ×3 (19:00→23:30)
[2019-02-15 19:12] LABS: BASOPHILS % 0.2 % (0.0-1.0); EOSINOPHILS % 0.1 % (0.0-6.0); HEMATOCRIT 36.3 % (34.2-44.1); HEMOGLOBIN 11.8 g/dL (12.0-16.0); LYMPHOCYTES # (AUTO) 0.8 (1.0-3.2); LYMPHOCYTES % 3.9 % (18.0-39.1); MEAN CORPUSCULAR HEMOGLOBIN 25.3 pg (28-32); MEAN CORPUSCULAR HGB CONC 32.5 g/dL (31-35); MEAN CORPUSCULAR VOLUME 77.9 fL (81-99); MONOCYTES # (AUTO) 0.2 (0.2-0.8); NEUTROPHILS # (AUTO) 17.9 (2.1-6.9); NEUTROPHILS % 93.4 % (38.7-80.0); PLATELET COUNT 352 x10e3/uL (140-360); RED BLOOD COUNT 4.66 x10e6/uL (3.6-5.1); RED CELL DISTRIBUTION WIDTH 14.4 % (11.7-14.4)
[2019-02-15 19:17] LABS: BILIRUBIN,URINE NEGATIVE (NEGATIVE); CLARITY,URINE CLEAR (CLEAR); COLOR,URINE YELLOW (YELLOW); KETONES,URINE NEGATIVE (NEGATIVE); LEUKOCYTE ESTERASE ,URINE NEGATIVE (NEGATIVE); NITRITE,URINE NEGATIVE (NEGATIVE); PROTEIN,URINE DIPSTICK NEGATIVE (NEGATIVE); URINE UROBILINOGEN 0.2 mg/dL (0.2 - 1)
[2019-02-15 19:36] LABS: ALANINE AMINOTRANSFERASE 12 IU/L (0-55); ALBUMIN 3.3 g/dL (3.5-5.0); ALKALINE PHOSPHATASE 105 IU/L (40-150); ANION GAP 16.5 mmol/L (8-16); BLOOD UREA NITROGEN 14 mg/dL (7-26); BUN/CREATININE RATIO 17 (6-25); CALCIUM 9.4 mg/dL (8.4-10.2); CARBON DIOXIDE 22 mmol/L (22-29); CHLORIDE 105 mmol/L (98-107); CREATININE, SERUM 0.83 mg/dL (0.57-1.11); EST GLOMERULAR FILTRATION RATE > 60 ML/MIN (60-); GLUCOSE 147 mg/dL (74-118); POTASSIUM 3.5 mmol/L (3.5-5.1); SODIUM 140 mmol/L (136-145)
[2019-02-15] MEDS ORDERED: PREDNISONE10 MG PO (19:37)
[2019-02-15] MEDS ORDERED: LORATADINE10 MG PO (19:40)
[2019-02-15] MEDS ORDERED: THEOPHYLLINE A300 MG PO (19:40)
[2019-02-15] MEDS ORDERED: DEXILANT30 MG PO (19:40)
[2019-02-15] MEDS ORDERED: VERAPAMIL ER120 M1 PO (19:40)
[2019-02-15 19:46] LABS: PREGNANCY TEST, URINE NEGATIVE (NEGATIVE)
--- OUTSIDE RECORDS SUMMARY | 2019-02-15 19:53 | XMS REPORT | Continuity of Care Document ---
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 Sublimaze 50 microgram, Route: IRRIG, ONCE, Dosing Weight 136.364, kg, Start date: 04/28/12 15:29:00, Stop date: 04/28/12 15:29:00 IRRIG No Longer Active [place]ie 04/28/2012 [facility] cefazolin + Sodium Chloride 0.9% IV 100 mL 1 gm, Route: IVPB, PRE OP, Start date: 04/28/12 13:00:00, Duration: 12 hr, Stop date: 04/29/12 0:59:00 IVPB No Longer Active Federico 04/28/2012 [facility] lidocaine 0.1 mL, Route: IV, Drug form: INJ, ONCALL, Start date: 04/28/12 9:00:00, Duration: 12 hr, Stop date: 04/28/12 20:59:00 IV No Longer Active [place] 04/28/2012 [facility] Lactated Ringers Injection IV 1,000 mL 1,000 mL, Rate: 100 ml/hr, Infuse over: 10 hr, Route: IV, kg, Total Volume: 1,000, Start date: 04/28/12 9:00:00, Duration: 12 hr, Stop date: 04/28/12 20:59:00 IV No Longer Active [place] 04/28/2012 [facility] predniSONE 40 mg, 2 tab, Route: PO, Drug form: TAB, Daily, Start date: 04/26/12 9:00:00, Duration: 30 day, Stop date: 05/25/12 9:00:00 PO No Longer Active [place] 04/26/2012 [facility] Singulair 10 mg, 1 tab, Route: PO, Drug form: TAB, Daily, Start date: 04/25/12 21:00:00, Duration: 30 day, Stop date: 05/24/12 21:00:00 PO No Longer Active [place] 04/26/2012 [facility] acetaminophen-oxycodone 325 mg-10 mg oral tablet 1 tab, Route: PO, Drug Form: TAB, Q4H, PRN Other -See Comment, Start date: 04/25/12 10:35:00, Duration: 30 day, Stop date: 05/25/12 10:34:00 PO No Longer Active Eunice 04/25/2012 [facility] Lovenox 40 mg, 0.4 mL, Route: SUB-Q, Drug form: INJ, Daily, Start date: 04/25/12 9:00:00, Duration: 30 day, Stop date: 05/24/12 9:00:00 SUB-Q No Longer Active [place] 04/25/2012 [facility] Ambien 5 mg, 1 tab, Route: PO, Drug form: TAB, Bedtime, PRN Sleep, Start date: 04/24/12 20:36:00, Duration: 30 day, Stop date: 05/24/12 20:35:00 PO No Longer Active [place] 04/25/2012 [facility] Protonix 40 mg, 1 tab, Route: PO, Drug form: ECTAB, BID- Before Meals, Start date: 04/23/12 16:30:00, Duration: 30 day, Stop date: 05/23/12 7:30:00 PO No Longer Active Latasha 04/23/2012 [facility] Esgic 2 tab, Route: PO, Drug Form: TAB, ONCE, Start date: 04/23/12 12:00:00, Stop date: 04/23/12 12:00:00 PO No Longer Active [place] 04/23/2012 [facility] ferrous sulfate 325 mg, 1 tab, Route: PO, Drug form: TAB, BID, Start date: 04/23/12 12:00:00, Duration: 30 day, Stop date: 05/23/12 9:00:00 PO No Longer Active [place] 04/23/2012 [facility] Sodium Chloride 0.9% IV 1,000 mL 1,000 mL, Rate: 125 ml/hr, Infuse over: 8 hr, Route: IV, kg, Total Volume: 1,000, Start date: 04/23/12 12:00:00, Duration: 30 day, Stop date: 05/23/12 11:59:00 IV No Longer Active [place] 04/23/2012 [facility] multivitamin 1 tab, Route: PO, Drug Form: TAB, BID, Start date: 04/23/12 12:00:00, Duration: 3 doses or times, Stop date: 04/24/12 17:00:00 PO No Longer Active [place] 04/23/2012 [facility] docusate sodium 100 mg oral capsule 100 mg, 1 cap, Route: PO, Drug form: CAP, BID, PRN Constipation, Start date: 04/23/12 11:14:00, Duration: 30 day, Stop date: 05/23/12 11:13:00 PO No Longer Active [place] [facility]: PO, Drug Form: TAB, Q6H, PRN Pain, Start date: 04/23/12 11:13:00, Duration: 30 day, Stop date: 05/23/12 11:12:00 PO No Longer Active [place] 04/23/2012 [facility] Esgic 1 tab, Route: PO, Drug Form: TAB, Q6H, PRN Pain, Start date: 04/23/12 11:12:00, Duration: 30 day, Stop date: 05/23/12 11:11:00 PO No Longer Active [place] 04/23/2012 [facility] methylPREDNISolone 60 mg, 0.96 mL, Route: IV, Drug form: INJ, Q8H, Start date: 04/23/12 9:00:00, Duration: 3 doses or times, Stop date: 04/24/12 1:00:00 IV No Longer Active Lili 04/23/2012 [facility] fluticasone-salmeterol 250 mcg-50 mcg MDI 1 inhalation, Route: INHALER, Drug Form: AERO, RBID, Start date: 04/22/12 20:00:00, Duration: 30 day, Stop date: 05/22/12 8:00:00 INHALER No Longer Active Lili 04/23/2012 [facility] Lovenox 140 mg, 0.93 mL, Route: SUB-Q, Drug form: INJ, [id number], Start date: 04/22/12 17:00:00, Duration: 30 day, Stop date: 05/22/12 5:00:00 SUB-Q No Longer Active [place] 04/22/2012 [facility] methylPREDNISolone 40 mg, 1 mL, Route: IV, Drug form: INJ, Q8H, Start date: 04/22/12 16:00:00, Duration: 30 day, Stop date: 05/22/12 8:00:00 IV No Longer Active [facility] 04/22/2012 [facility] Zithromax IVPB, 166.67 ml/hr, [id number], Start date: 04/22/12 14:00:00, Duration: 30, 250 ml IVPB No Longer Active [facility] 04/22/2012 [facility] Rocephin + Sodium Chloride 0.9% IV 100 mL 1 gm, Route: IVPB, [id number], Start date: 04/22/12 13:00:00, Duration: 30 day, Stop date: 05/21/12 13:00:00 IVPB No Longer Active [facility] 04/22/2012 [facility] DuoNeb inhalation solution 3 mL, Route: NEB, Drug Form: SOLN, RQ4H, Start date: 04/22/12 11:00:00, Duration: 30 day, Stop date: 05/22/12 7:00:00 NEB No Longer Active [place] 04/22/2012 [facility] K-Dur 10 30 mEq, 3 tab, Route: PO, Drug form: ERTAB, Q1H, Start date: 04/22/12 9:00:00, Duration: 2 doses or times, Stop date: 04/22/12 10:00:00 PO No Longer Active [place] 04/22/2012 [facility] Levaquin 750 mg, 150 mL, Route: IV, Drug form: SOLN, [id number], Start date: 04/22/12 9:00:00, Duration: 30 day, Stop date: 05/21/12 9:00:00 IV No Longer Active [place] 04/22/2012 [facility] Coumadin 7.5 mg, 1 tab, Route: PO, Drug form: TAB, Q5PM, Start date: 04/22/12 9:00:00, Duration: 30 day, Stop date: 05/21/12 17:00:00 PO No Longer Active [place] 04/22/2012 [facility] Protonix 40 mg, 1 tab, Route: PO, Drug form: ECTAB, Before Dinner, Start date: 04/22/12 9:00:00, Duration: 30 day, Stop date: 05/21/12 16:30:00 PO No Longer Active [place] 04/22/2012 [facility] lidocaine-prilocaine topical 1 appl, Route: TOP, ONCALL, Drug form: CRM, Start date: 04/22/12 9:00:00, Duration: 2 day, Stop date: 04/24/12 8:59:00 TOP No Longer Active [place] 04/22/2012 [facility] Tessalon Perles 200 mg, 2 cap, Route: PO, Drug form: CAP, Q8H-06, Start date: 04/22/12 9:00:00, Duration: 30 day, Stop date: 05/22/12 6:00:00 PO No Longer Active [place] 04/22/2012 [facility] methylPREDNISolone 100 mg, 1.6 mL, Route: IV, Drug form: INJ, Q8H, Start date: 04/22/12 9:00:00, Duration: 3 doses or times, Stop date: 04/23/12 1:00:00 IV No Longer Active [place] 04/22/2012 [facility] Zofran 4 mg, 2 mL, Route: IVP, Drug form: INJ, Q6H, PRN Nausea, Priority: STAT, Start date: 04/22/12 8:46:00, Duration: 30 day, Stop date: 05/22/12 8:45:00 IVP No Longer Active [place] 04/22/2012 [facility] acetaminophen-hydrocodone 325 mg-10 mg oral tablet 1 tab, Route: PO, Drug Form: TAB, Q6H, PRN Pain, Start date: 04/22/12 8:46:00, Duration: 30 day, Stop date: 05/22/12 8:45:00 PO No Longer Active [place] 04/22/2012 [facility] tramadol 50 mg oral tablet 100 mg, 2 tab, Route: PO, Drug form: TAB, Q6H, PRN Pain, Start date: 04/22/12 8:46:00, Duration: 30 day, Stop date: 05/22/12 8:45:00 PO No Longer Active [place] 04/22/2012 [facility] morphine Sulfate 2 mg, 1 mL, Route: IV, Drug form: INJ, Q4H, PRN Pain, Start date: 04/22/12 8:45:00, Duration: 30 day, Stop date: 05/22/12 8:44:00 IV No Longer Active [place] 04/22/2012 [facility] Xanax 0.5 mg, 1 tab, Route: PO, Drug form: TAB, QID, PRN Anxiety, Start date: 04/22/12 8:38:00, Duration: 30 day, Stop date: 05/22/12 8:37:00 PO No Longer Active [place] 04/22/2012 [facility] codeine-guaifenesin 10 mL, Route: PO, Drug Form: LIQ, Q6H, PRN Cough, Start date: 04/22/12 8:36:00, Duration: 30 day, Stop date: 05/22/12 8:35:00 PO No Longer Active [place] 04/22/2012 [facility] Sodium Chloride 0.45% IV 1,000 mL 1,000 mL, Rate: 100 ml/hr, Infuse over: 10 hr, Route: IV, kg, Total Volume: 1,000, Start date: 04/22/12 8:36:00, Duration: 15 hr, Stop date: 04/22/12 23:35:00 IV No Longer Active [place] 04/22/2012 [facility] DuoNeb inhalation solution 3 mL, Route: NEB, Drug Form: SOLN, PRN, PRN Wheezing, Start date: 04/22/12 8:32:00, Duration: 30 day, Stop date: 05/22/12 8:31:00 NEB No Longer Active [place] 04/22/2012 [facility] morphine Sulfate 2 mg, Route: IVP, ONCE, Dosing Weight 136.364, kg, Priority: STAT, Start date: 04/22/12 7:40:00, Stop date: 04/22/12 7:40:00 IVP No Longer Active [place] 04/22/2012 [facility] Dilaudid 1 mg, 1 mL, Route: IV, Drug form: INJ, ONCE, Dosing Weight 136.364, kg, Start date: 04/22/12 5:37:00, Stop date: 04/22/12 5:37:00 IV No Longer Active [place] 04/22/2012 [facility] Lovenox 130 mg, 0.87 mL, Route: SUB-Q, Drug form: INJ, ONCE, Dosing Weight 136.364, kg, Priority: STAT, Start date: 04/22/12 5:16:00, Stop date: 04/22/12 5:16:00 SUB-Q No Longer Active [place] 04/22/2012 [facility] acetaminophen 1,000 mg, 2 tab, Route: PO, Drug form: TAB, ONCE, Dosing Weight 136.364, kg, Start date: 04/22/12 1:43:00, Stop date: 04/22/12 1:43:00 PO No Longer Active [place] 04/22/2012 [facility] DuoNeb inhalation solution 3 mL, Route: INHALATION, Drug Form: SOLN, Dosing Weight 136.364, kg, Q15Min, PRN Wheezing, Start date: 04/22/12 1:42:00, Duration: 3 doses or times, Stop date: Limited # of times INHALATION No Longer Active [place] 04/22/2012 [facility] predniSONE 60 mg, 3 tab, Route: PO, Drug form: TAB, ONCE, Dosing Weight 136.364, kg, Priority: STAT, Start date: 04/22/12 1:40:00, Stop date: 04/22/12 1:40:00 PO No Longer Active [place] 04/22/2012 [facility] Colace 100 mg oral capsule 100 mg, 1 cap, PO, BID, PRN, 20 cap, Constipation, Substitution Allowed, CAP PO Active [place] 04/21/2012 [facility] [place] 10/325 oral tablet 1-2 tab, PO, Q4-6H, PRN, 30 tab, Pain, Substitution Allowed, Maintenance PO Active [place] 04/21/2012 [facility] hydromorphone 2 mg, 1 mL, Route: IM, Drug form: INJ, ONCE, Dosing Weight 136.364, kg, Priority: STAT, Start date: 04/21/12 0:11:00, Stop date: 04/21/12 0:11:00 IM No Longer Active [place] 04/21/2012 [facility] [place] 10/325 oral tablet 1 tab, PO, Q4H, PRN, 24 tab, for pain, Substitution Allowed, Maintenance PO Active Siddiqui 04/20/2012 [facility] Versed 4 mg, 4 mL, Route: IVP, Drug form: SOLN, ONCE, Dosing Weight 136.364, kg, Priority: STAT, Start date: 04/20/12 1:21:00, Stop date: 04/20/12 1:21:00 IVP No Longer Active [place] 04/20/2012 [facility] Dilaudid 1 mg, 1 mL, Route: IV, Drug form: INJ, ONCE, Dosing Weight 136.364, kg, Start date: 04/20/12 1:21:00, Stop date: 04/20/12 1:21:00 IV No Longer Active [place] 04/20/2012 [facility] Zofran 4 mg, 2 mL, Route: IVP, Drug form: INJ, ONCE, Dosing Weight 136.364, kg, Priority: STAT, Start date: 04/20/12 1:01:00, Stop date: 04/20/12 1:01:00 IVP No Longer Active [place] 04/20/2012 [facility] morphine Sulfate 6 mg, 0.6 mL, Route: IVP, Drug form: INJ, ONCE, Dosing Weight 136.364, kg, Start date: 04/20/12 1:01:00, Stop date: 04/20/12 1:01:00 IVP No Longer Active S[place] 04/20/2012 [facility] Allergies, Adverse Reactions, Alerts Substance Category Reaction Severity Reaction type Status Date Reported Comments Source No Known Medication Allergies Assertion Drug allergy [facility] HYDROcodone Assertion Drug allergy Active [facility] Immunizations Immunization Date Given Site Status Last Updated Comments Source pneumococcal 23-valent vaccine 03/13/2017 Not Given [facility] Results Order Name Results Value Reference Range Date Interpretation Comments Source HEMATOLOGY D-Dimer <0.27 09/29/2018 [facility] CARDIAC ENZYMES BNP 11 <=100 pg/mL 09/29/2018 [facility] CARDIAC ENZYMES Troponin-I <0.02 0.00 - 0.40 09/29/2018 [facility] CHEM PANEL eGFR 78 09/29/2018 Result [facility] Glucose Lvl 93 70 - 99 09/29/2018 [facility] CHEM PANEL CO2 25 24 - 32 09/29/2018 [facility] CHEM PANEL Chloride Lvl 110 95 - 109 09/29/2018 [facility] CHEM PANEL Potassium Lvl 3.9 3.5 - 5.1 09/29/2018 [facility] CHEM PANEL Sodium Lvl 141 135 - 145 09/29/2018 [facility] CHEM PANEL Creatinine Lvl 0.92 0.50 - 1.40 09/29/2018 [facility] CHEM PANEL BUN 13 7 - 22 09/29/2018 [facility] CHEM PANEL Calcium Lvl 8.7 8.5 - 10.5 09/29/2018 [facility] CHEM PANEL AGAP 9.9 10.0 - 20.0 09/29/2018 [facility] HEMATOLOGY Eosinophils # 0.3 0.0 - 0.5 09/29/2018 [facility] HEMATOLOGY Lymphocytes # 1.8 1.0 - 5.5 09/29/2018 [facility] HEMATOLOGY Basophils # 0.1 0.0 - 0.2 09/29/2018 [facility] HEMATOLOGY Monocytes # 0.5 0.0 - 0.8 09/29/2018 [facility] HEMATOLOGY Segs 77.8 45.0 - 75.0 09/29/2018 [facility] Basophils 0.6 0.0 - 1.0 09/29/2018 [facility] Lymphocytes 14.9 20.0 - 40.0 09/29/2018 [facility] Monocytes 3.9 2.0 - 12.0 09/29/2018 [facility] Neutrophils # 9.3 1.5 - 8.1 09/29/2018 [facility] Eosinophils 2.8 0.0 - 4.0 09/29/2018 [facility] MPV 8.0 7.4 - 10.4 09/29/2018 [facility] MCHC 32.1 32.0 - 36.0 09/29/2018 [facility] RDW 16.5 11.5 - 14.5 09/29/2018 [facility] Platelet 298 133 - 450 09/29/2018 [facility] Hgb 12.2 12.0 - 16.0 09/29/2018 [facility] Hct 38.0 36.0 - 48.0 09/29/2018 [facility] MCV 79.3 80.0 - 98.0 09/29/2018 [facility] MCH 25.4 27.0 - 31.0 09/29/2018 [facility] RBC 4.79 4.20 - 5.40 09/29/2018 [facility] WBC 12.0 3.7 - 10.4 09/29/2018 [facility] CARDIAC ENZYMES BNP 41 <=100 pg/mL 08/01/2018 [facility] ELECTROLYTES AGAP 14.4 10.0 - 20.0 08/01/2018 [facility] ELECTROLYTES eGFR 73 08/01/2018 Result Comment: [...] [facility] ELECTROLYTES Sodium Lvl 143 135 - 145 08/01/2018 [facility] ELECTROLYTES Creatinine Lvl 0.96 0.50 - 1.40 08/01/2018 [facility] ELECTROLYTES CO2 29 24 - 32 08/01/2018 [facility] ELECTROLYTES Potassium Lvl 4.4 3.5 - 5.1 08/01/2018 [facility] ELECTROLYTES Calcium Lvl 8.6 8.5 - 10.5 08/01/2018 [facility] ELECTROLYTES Chloride Lvl 104 95 - 109 08/01/2018 [facility] ELECTROLYTES Glucose Lvl 152 70 - 99 08/01/2018 [facility] ELECTROLYTES BUN 18 7 - 22 08/01/2018 [facility] LIPIDS LDL (Calculated) 77 <=99 mg/dL 07/30/2018 [facility] CHD Risk 3.58 3.90 - 5.80 07/30/2018 [facility] HDL 36 >=61 mg/dL 07/30/2018 [facility] Trig 81 <=149 mg/dL 07/30/2018 [facility] LIPIDS Chol 129 <=199 mg/dL 07/30/2018 [facility] LIPIDS VLDL 16 07/30/2018 [facility] CHEM PANEL Phosphorus 3.1 2.5 - 4.5 07/29/2018 [facility] CHEM PANEL eGFR 65 07/29/2018 Result [facility] Glucose Lvl 128 70 - 99 07/29/2018 [facility] CHEM PANEL Creatinine Lvl 1.06 0.50 - 1.40 07/29/2018 [facility] CHEM PANEL BUN 11 7 - 22 07/29/2018 [facility] CHEM PANEL Total Protein 7.8 6.4 - 8.4 07/29/2018 [facility] CHEM PANEL Albumin Lvl 3.4 3.5 - 5.0 07/29/2018 [facility] CHEM PANEL Potassium Lvl 4.1 3.5 - 5.1 07/29/2018 [facility] CHEM PANEL Calcium Lvl 8.8 8.5 - 10.5 07/29/2018 [facility] CHEM PANEL CO2 22 24 - 32 07/29/2018 [facility] CHEM PANEL Chloride Lvl 109 95 - 109 07/29/2018 [facility] CHEM PANEL Sodium Lvl 139 135 - 145 07/29/2018 [facility] CHEM PANEL ALT 20 0 - 65 07/29/2018 [facility] CHEM PANEL AST 16 0 - 37 07/29/2018 [facility] CHEM PANEL Bili Total 0.1 0.2 - 1.3 07/29/2018 [facility] CHEM PANEL Alk Phos 100 39 - 136 07/29/2018 [facility] CHEM PANEL B/C Ratio 10 6 - 25 07/29/2018 [facility] CHEM PANEL AGAP 12.1 10.0 - 20.0 07/29/2018 [facility] CHEM PANEL A/G Ratio 0.8 0.7 - 1.6 07/29/2018 [facility] CHEM PANEL Globulin 4.4 2.7 - 4.2 07/29/2018 [facility] CHEM PANEL Magnesium Lvl 2.1 1.8 - 2.4 07/29/2018 [facility] HEMATOLOGY RDW 16.3 11.5 - 14.5 07/29/2018 [facility] HEMATOLOGY Platelet 323 133 - 450 07/29/2018 [facility] HEMATOLOGY MPV 8.8 7.4 - 10.4 07/29/2018 [facility] HEMATOLOGY MCHC 32.9 32.0 - 36.0 07/29/2018 [facility] HEMATOLOGY RBC 4.78 4.20 - 5.40 07/29/2018 [facility] HEMATOLOGY WBC 11.4 3.7 - 10.4 07/29/2018 [facility] HEMATOLOGY MCH 25.5 27.0 - 31.0 07/29/2018 [facility] MCV 77.6 80.0 - 98.0 07/29/2018 [facility] Hct 37.1 36.0 - 48.0 07/29/2018 [facility] Hgb 12.2 12.0 - 16.0 07/29/2018 [facility] Neutrophils # 10.2 1.5 - 8.1 07/29/2018 [facility] Basophils 0.1 0.0 - 1.0 07/29/2018 [facility] Microcyte 1+ *ABN* (07/29/18 2:00 AM) None Seen 07/29/2018 [facility] Monocytes # 0.5 0.0 - 0.8 07/29/2018 [facility] Lymphocytes # 0.7 1.0 - 5.5 07/29/2018 [facility] Segs 89.4 45.0 - 75.0 07/29/2018 [facility] Lymphocytes 6.0 20.0 - 40.0 07/29/2018 [facility] Monocytes 4.5 2.0 - 12.0 07/29/2018 [facility] VIRAL - SEROLOGY Influ B Negative (07/28/18 12:46 PM) Negative 07/28/2018 [facility] VIRAL - SEROLOGY Influ A Negative (07/28/18 12:46 PM) Negative 07/28/2018 [facility] CARDIAC ENZYMES Troponin-I <0.02 0.00 - 0.40 07/28/2018 [facility] CARDIAC ENZYMES Troponin-I <0.02 0.00 - 0.40 07/28/2018 [facility] HEMATOLOGY D-Dimer 0.28 07/28/2018 [facility] CARDIAC ENZYMES Total CK 43 12 - 191 07/28/2018 [facility] CARDIAC ENZYMES BNP 9 <=100 pg/mL 07/28/2018 [facility] CARDIAC ENZYMES Troponin-I <0.02 0.00 - 0.40 07/28/2018 [facility] CHEM PANEL eGFR 63 07/28/2018 Result [facility] Alk Phos 99 39 - 136 07/28/2018 [facility] CHEM PANEL Bili Total 0.2 0.2 - 1.3 07/28/2018 [facility] CHEM PANEL ALT 18 0 - 65 07/28/2018 [facility] CHEM PANEL AST 11 0 - 37 07/28/2018 [facility] CHEM PANEL Albumin Lvl 3.3 3.5 - 5.0 07/28/2018 [facility] CHEM PANEL Calcium Lvl 8.2 8.5 - 10.5 07/28/2018 [facility] CHEM PANEL Total Protein 7.5 6.4 - 8.4 07/28/2018 [facility] CHEM PANEL Chloride Lvl 110 95 - 109 07/28/2018 [facility] CHEM PANEL CO2 23 24 - 32 07/28/2018 [facility] CHEM PANEL Sodium Lvl 139 135 - 145 07/28/2018 [facility] CHEM PANEL Potassium Lvl 3.5 3.5 - 5.1 07/28/2018 [facility] CHEM PANEL BUN 13 7 - 22 07/28/2018 [facility] CHEM PANEL Creatinine Lvl 1.10 0.50 - 1.40 07/28/2018 [facility] CHEM PANEL Glucose Lvl 118 70 - 99 07/28/2018 [facility] CHEM PANEL AGAP 9.5 10.0 - 20.0 07/28/2018 [facility] CHEM PANEL Globulin 4.2 2.7 - 4.2 07/28/2018 [facility] CHEM PANEL A/G Ratio 0.8 0.7 - 1.6 07/28/2018 [facility] CHEM PANEL B/C Ratio 12 6 - 25 07/28/2018 [facility] ENDOCRINOLOGY S Preg Negative *NA* (07/28/18 12:32 AM) Negative 07/28/2018 [facility] HEMATOLOGY Monocytes # 0.5 0.0 - 0.8 07/28/2018 [facility] HEMATOLOGY Eosinophils # 0.1 0.0 - 0.5 07/28/2018 [facility] HEMATOLOGY Basophils # 0.1 0.0 - 0.2 07/28/2018 [facility] HEMATOLOGY Microcyte 1+ *ABN* (07/28/18 12:32 AM) None Seen 07/28/2018 [facility] Segs 78.0 45.0 - 75.0 07/28/2018 [facility] Lymphocytes 16.1 20.0 - 40.0 07/28/2018 [facility] HEMATOLOGY Monocytes 4.4 2.0 - 12.0 07/28/2018 [facility] HEMATOLOGY Eosinophils 1.0 0.0 - 4.0 07/28/2018 [facility] HEMATOLOGY Basophils 0.5 0.0 - 1.0 07/28/2018 [facility] Neutrophils # 8.6 1.5 - 8.1 07/28/2018 [facility] Lymphocytes # 1.8 1.0 - 5.5 07/28/2018 [facility] RBC 4.89 4.20 - 5.40 07/28/2018 [facility] Hgb 12.1 12.0 - 16.0 07/28/2018 [facility] MCV 77.9 80.0 - 98.0 07/28/2018 [facility] MCH 24.8 27.0 - 31.0 07/28/2018 [facility] WBC 11.0 3.7 - 10.4 07/28/2018 [facility] Platelet 294 133 - 450 07/28/2018 [facility] MPV 8.4 7.4 - 10.4 07/28/2018 [facility] Hct 38.1 36.0 - 48.0 07/28/2018 [facility] MCHC 31.8 32.0 - 36.0 07/28/2018 [facility] [facility] R[facility] 16.4 11.5 - 14.5 07/28/2018 [facility] INR 0.96 0.85 - 1.17 07/28/2018 [facility] HEMATOLOGY PT 12.6 12.0 - 14.7 07/28/2018 [facility] PTT 32.0 22.9 - 35.8 07/28/2018 [facility] CARDIAC ENZYMES Troponin-I <0.02 0.00 - 0.40 03/17/2018 [facility] CHEM PANEL Lipase Lvl 91 73 - 393 03/17/2018 [facility] CHEM PANEL eGFR 93 03/17/2018 [facility] Alk Phos 98 39 - 136 03/17/2018 [facility] CHEM PANEL AST 15 0 - 37 03/17/2018 [facility] CHEM PANEL ALT 17 0 - 65 03/17/2018 [facility] CHEM PANEL Albumin Lvl 3.4 3.5 - 5.0 03/17/2018 [facility] CHEM PANEL BUN 13 7 - 22 03/17/2018 [facility] CHEM PANEL Glucose Lvl 84 70 - 99 03/17/2018 [facility] CHEM PANEL Chloride Lvl 106 95 - 109 03/17/2018 [facility] CHEM PANEL Potassium Lvl 3.9 3.5 - 5.1 03/17/2018 [facility] CHEM PANEL Sodium Lvl 141 135 - 145 03/17/2018 [facility] CHEM PANEL Creatinine Lvl 0.79 0.50 - 1.40 03/17/2018 [facility] CHEM PANEL Total Protein 7.8 6.4 - 8.4 03/17/2018 [facility] CHEM PANEL Calcium Lvl 8.8 8.5 - 10.5 03/17/2018 [facility] CHEM PANEL CO2 25 24 - 32 03/17/2018 [facility] CHEM PANEL Bili Total 0.3 0.2 - 1.3 03/17/2018 [facility] CHEM PANEL A/G Ratio 0.8 0.7 - 1.6 03/17/2018 [facility] CHEM PANEL Globulin 4.4 2.7 - 4.2 03/17/2018 [facility] CHEM PANEL B/C Ratio 16 6 - 25 03/17/2018 [facility] CHEM PANEL AGAP 13.9 10.0 - 20.0 03/17/2018 [facility] HEMATOLOGY Basophils # 0.1 0.0 - 0.2 03/17/2018 [facility] HEMATOLOGY Eosinophils # 0.2 0.0 - 0.5 03/17/2018 [facility] HEMATOLOGY Microcyte 1+ *ABN* (03/16/18 10:56 PM) None Seen 03/17/2018 [facility] HEMATOLOGY Lymphocytes # 3.6 1.0 - 5.5 03/17/2018 [facility] HEMATOLOGY Neutrophils # 8.9 1.5 - 8.1 03/17/2018 [facility] HEMATOLOGY Monocytes # 0.6 0.0 - 0.8 03/17/2018 [facility] HEMATOLOGY Basophils 0.7 0.0 - 1.0 03/17/2018 [facility] HEMATOLOGY Eosinophils 1.4 0.0 - 4.0 03/17/2018 [facility] Lymphocytes 27.3 20.0 - 40.0 03/17/2018 [facility] Monocytes 4.2 2.0 - 12.0 03/17/2018 [facility] Segs 66.4 45.0 - 75.0 03/17/2018 [facility] RDW 16.6 11.5 - 14.5 03/17/2018 [facility] MCHC 33.1 32.0 - 36.0 03/17/2018 [facility] MCH 25.6 27.0 - 31.0 03/17/2018 [facility] MCV 77.4 80.0 - 98.0 03/17/2018 [facility] HEMATOLOGY Hct 39.2 36.0 - 48.0 03/17/2018 [facility] Hgb 13.0 12.0 - 16.0 03/17/2018 [facility] WBC 13.4 3.7 - 10.4 03/17/2018 [facility] HEMATOLOGY Platelet 292 133 - 450 03/17/2018 [facility] HEMATOLOGY RBC 5.07 4.20 - 5.40 03/17/2018 [facility] MPV 8.8 7.4 - 10.4 03/17/2018 [facility] URINE AND STOOL UA WBC 1 0 - 5 03/17/2018 [facility] URINE AND STOOL UA Leuk Est Trace *ABN* (03/16/18 10:56 PM) Negative 03/17/2018 [facility] URINE AND STOOL UA Sq Epi Occasional /LPF Few /LPF 03/17/2018 [facility] URINE AND STOOL UA Nitrite Negative (03/16/18 10:56 PM) Negative 03/17/2018 [facility] URINE AND STOOL UA [...] Turbidity Clear (03/16/18 10:56 PM) Clear 03/17/2018 [facility] URINE AND STOOL UA Color Yellow *NA* (03/16/18 10:56 PM) Yellow 03/17/2018 [facility] URINE AND STOOL UA Bacteria Few /HPF None Seen /HPF 03/17/2018 [facility] URINE AND STOOL UA RBC 2 0 - 2 03/17/2018 [facility] URINE AND STOOL UA Urobilinogen <=1.0 mg/dL 0.1 - 1.0 03/17/2018 [facility] URINE CHEM U Preg Negative (03/16/18 [...] UA RBC 2 0 - 2 03/03/2018 [facility] [...] 03/03/2018 [facility] ELECTROLYTES AGAP 15.2 10.0 - 20.0 03/03/2018 [facility] ELECTROLYTES eGFR 88 03/03/2018 Result Comment: [...] [facility] ELECTROLYTES Sodium Lvl 144 135 - 145 03/03/2018 [facility] ELECTROLYTES Creatinine Lvl 0.83 0.50 - 1.40 03/03/2018 [facility] ELECTROLYTES Potassium Lvl 4.2 3.5 - 5.1 03/03/2018 [facility] ELECTROLYTES CO2 22 24 - 32 03/03/2018 [facility] ELECTROLYTES Chloride Lvl 111 95 - 109 03/03/2018 [facility] ELECTROLYTES Calcium Lvl 8.4 8.5 - 10.5 03/03/2018 [facility] ELECTROLYTES Glucose Lvl 97 70 - 99 03/03/2018 [facility] ELECTROLYTES BUN 9 7 - 22 03/03/2018 [facility] ENDOCRINOLOGY S Preg Negative *NA* (03/03/18 9:16 AM) Negative 03/03/2018 [facility] HEMATOLOGY Eosinophils # 0.2 0.0 - 0.5 03/03/2018 [facility] Basophils # 0.1 0.0 - 0.2 03/03/2018 [facility] Microcyte 1+ *ABN* (03/03/18 9:16 AM) None Seen 03/03/2018 [facility] HEMATOLOGY Lymphocytes 19.5 20.0 - 40.0 03/03/2018 [facility] Segs 72.5 45.0 - 75.0 03/03/2018 [facility] Monocytes 4.9 2.0 - 12.0 03/03/2018 [facility] Basophils 1.1 0.0 - 1.0 03/03/2018 [facility] Eosinophils 2.0 0.0 - 4.0 03/03/2018 [facility] Lymphocytes # 1.9 1.0 - 5.5 03/03/2018 [facility] Neutrophils # 7.2 1.5 - 8.1 03/03/2018 [facility] Monocytes # 0.5 0.0 - 0.8 03/03/2018 [facility] D-Dimer 0.33 03/03/2018 [facility] MPV 8.0 7.4 - 10.4 03/03/2018 [facility] RDW 16.6 11.5 - 14.5 03/03/2018 [facility] Platelet 309 133 - 450 03/03/2018 [facility] MCHC 33.4 32.0 - 36.0 03/03/2018 [facility] MCH 25.6 27.0 - 31.0 03/03/2018 [facility] Hct 35.8 36.0 - 48.0 03/03/2018 [facility] RBC 4.65 4.20 - 5.40 03/03/2018 [facility] Hgb 11.9 12.0 - 16.0 03/03/2018 [facility] WBC 10.0 3.7 - 10.4 03/03/2018 [facility] MCV 76.9 80.0 - 98.0 03/03/2018 [facility] RAPID Grp A Strep Scr Negative (03/03/18 9:16 AM) Negative 03/03/2018 [facility] VIRAL - SEROLOGY Influ B Negative (03/03/18 9:16 AM) Negative 03/03/2018 [facility] VIRAL - SEROLOGY Influ A Negative (03/03/18 9:16 AM) Negative 03/03/2018 [facility] HEMATOLOGY D-Dimer 0.35 02/11/2018 [facility] CARDIAC ENZYMES Total CK 38 12 - 191 02/10/2018 [facility] CARDIAC ENZYMES BNP 19 <=100 pg/mL 02/10/2018 [facility] CARDIAC ENZYMES Troponin-I <0.02 0.00 - 0.40 02/10/2018 [facility] CHEM PANEL eGFR 66 02/10/2018 Result [facility] Potassium Lvl 3.5 3.5 - 5.1 02/10/2018 [facility] CHEM PANEL Chloride Lvl 108 95 - 109 02/10/2018 [facility] CHEM PANEL Calcium Lvl 9.7 8.5 - 10.5 02/10/2018 [facility] CHEM PANEL CO2 31 24 - 32 02/10/2018 [facility] CHEM PANEL Sodium Lvl 143 135 - 145 02/10/2018 [facility] CHEM PANEL Creatinine Lvl 1.05 0.50 - 1.40 02/10/2018 [facility] CHEM PANEL ALT 18 0 - 65 02/10/2018 [facility] CHEM PANEL Albumin Lvl 3.3 3.5 - 5.0 02/10/2018 [facility] CHEM PANEL Alk Phos 97 39 - 136 02/10/2018 [facility] CHEM PANEL AST 12 0 - 37 02/10/2018 [facility] CHEM PANEL Total Protein 7.5 6.4 - 8.4 02/10/2018 [facility] CHEM PANEL Bili Total <0.1 0.2 - 1.3 02/10/2018 [facility] CHEM PANEL BUN 13 7 - 22 02/10/2018 [facility] CHEM PANEL Glucose Lvl 93 70 - 99 02/10/2018 [facility] CHEM PANEL Globulin 4.2 2.7 - 4.2 02/10/2018 [facility] CHEM PANEL A/G Ratio 0.8 0.7 - 1.6 02/10/2018 [facility] CHEM PANEL B/C Ratio 12 6 - 25 02/10/2018 [facility] CHEM PANEL AGAP 7.5 10.0 - 20.0 02/10/2018 [facility] ENDOCRINOLOGY S Preg Negative *NA* (02/10/18 5:18 PM) Negative 02/10/2018 [facility] HEMATOLOGY Neutrophils # 7.1 1.5 - 8.1 02/10/2018 [facility] Lymphocytes # 3.1 1.0 - 5.5 02/10/2018 [facility] Monocytes # 0.5 0.0 - 0.8 02/10/2018 [facility] HEMATOLOGY Eosinophils # 0.2 0.0 - 0.5 02/10/2018 [facility] Basophils # 0.1 0.0 - 0.2 02/10/2018 [facility] Microcyte 1+ *ABN* (02/10/18 5:18 PM) None Seen 02/10/2018 [facility] Segs 64.6 45.0 - 75.0 02/10/2018 [facility] Lymphocytes 28.1 20.0 - 40.0 02/10/2018 [facility] Basophils 1.2 0.0 - 1.0 02/10/2018 [facility] Monocytes 4.2 2.0 - 12.0 02/10/2018 [facility] Eosinophils 1.9 0.0 - 4.0 02/10/2018 [facility] WBC 11.0 3.7 - 10.4 02/10/2018 [facility] Hgb 12.0 12.0 - 16.0 02/10/2018 [facility] RBC 4.77 4.20 - 5.40 02/10/2018 [facility] RDW 16.0 11.5 - 14.5 02/10/2018 [facility] MCH 25.3 27.0 - 31.0 02/10/2018 [facility] HEMATOLOGY MCHC 33.3 32.0 - 36.0 02/10/2018 [facility] HEMATOLOGY Hct 36.2 36.0 - 48.0 02/10/2018 [facility] HEMATOLOGY MCV 76.0 80.0 - 98.0 02/10/2018 [facility] HEMATOLOGY Platelet 292 133 - 450 02/10/2018 [facility] HEMATOLOGY MPV 8.1 7.4 - 10.4 02/10/2018 [facility] URINE AND STOOL UA [...] Negative *NA* (09/29/17 4:49 PM) Negative 09/29/2017 [facility] URINE AND STOOL UA Ketones Negative mg/dL Negative mg/dL 09/29/2017 [facility] URINE AND STOOL UA Blood Negative (09/29/17 4:49 PM) Negative 09/29/2017 [facility] URINE AND STOOL UA Leuk Est Negative (09/29/17 4:49 PM) Negative 09/29/2017 [facility] URINE AND STOOL UA Nitrite Negative (09/29/17 4:49 PM) Negative 09/29/2017 [facility] URINE AND STOOL UA WBC 2 0 - 5 09/29/2017 [facility] URINE AND STOOL UA Sq Epi Few /LPF Few /LPF 09/29/2017 [facility] URINE AND STOOL UA RBC 5 0 - 2 09/29/2017 [facility] URINE AND STOOL [...] Acid Lvl 1.0 0.5 - 2.2 09/29/2017 [facility] ELECTROLYTES AGAP 9.9 10.0 - 20.0 09/29/2017 [facility] ELECTROLYTES Globulin 4.3 2.7 - 4.2 09/29/2017 [facility] ELECTROLYTES B/C Ratio 13 6 - 25 09/29/2017 [facility] ELECTROLYTES A/G Ratio 0.7 0.7 - 1.6 09/29/2017 [facility] ELECTROLYTES eGFR 98 09/29/2017 Result Comment: [...] [facility] ELECTROLYTES Creatinine Lvl 0.76 0.50 - 1.40 09/29/2017 [facility] ELECTROLYTES Potassium Lvl 3.9 3.5 - 5.1 09/29/2017 [facility] ELECTROLYTES Sodium Lvl 142 135 - 145 09/29/2017 [facility] ELECTROLYTES CO2 25 24 - 32 09/29/2017 [facility] ELECTROLYTES Calcium Lvl 8.6 8.5 - 10.5 09/29/2017 [facility] ELECTROLYTES Chloride Lvl 111 95 - 109 09/29/2017 [facility] ELECTROLYTES Total Protein 7.5 6.4 - 8.4 09/29/2017 [facility] ELECTROLYTES AST 20 0 - 37 09/29/2017 [facility] ELECTROLYTES ALT 22 0 - 65 09/29/2017 [facility] ELECTROLYTES Albumin Lvl 3.2 3.5 - 5.0 09/29/2017 [facility] ELECTROLYTES Alk Phos 101 39 - 136 09/29/2017 [facility] ELECTROLYTES Bili Total 0.2 0.2 - 1.3 09/29/2017 [facility] ELECTROLYTES Glucose Lvl 82 70 - 99 09/29/2017 [facility] ELECTROLYTES BUN 10 7 - 22 09/29/2017 [facility] HEMATOLOGY Microcyte 1+ *ABN* (09/29/17 2:44 PM) None Seen 09/29/2017 [facility] HEMATOLOGY Monocytes 4.3 2.0 - 12.0 09/29/2017 [facility] HEMATOLOGY Eosinophils 2.1 0.0 - 4.0 09/29/2017 [facility] HEMATOLOGY Segs 65.9 45.0 - 75.0 09/29/2017 [facility] HEMATOLOGY Lymphocytes # 3.5 1.0 - 5.5 09/29/2017 [facility] HEMATOLOGY Monocytes # 0.6 0.0 - 0.8 09/29/2017 [facility] HEMATOLOGY Eosinophils # 0.3 0.0 - 0.5 09/29/2017 [facility] HEMATOLOGY Lymphocytes 26.8 20.0 - 40.0 09/29/2017 [facility] HEMATOLOGY Basophils 0.9 0.0 - 1.0 09/29/2017 [facility] HEMATOLOGY Segs-Bands # 8.5 1.5 - 8.1 09/29/2017 [facility] Basophils # 0.1 0.0 - 0.2 09/29/2017 [facility] HEMATOLOGY Hct 37.7 36.0 - 48.0 09/29/2017 [facility] MCV 76.7 80.0 - 98.0 09/29/2017 [facility] MCH 25.4 27.0 - 31.0 09/29/2017 [facility] MCHC 33.1 32.0 - 36.0 09/29/2017 [facility] RDW 16.1 11.5 - 14.5 09/29/2017 [facility] Hgb 12.5 12.0 - 16.0 09/29/2017 [facility] Platelet 326 133 - 450 09/29/2017 [facility] MPV 8.3 7.4 - 10.4 09/29/2017 [facility] RBC 4.91 4.20 - 5.40 09/29/2017 [facility] WBC 12.9 3.7 - 10.4 09/29/2017 [facility] URINE AND STOOL UA Color Yellow *NA* (07/21/17 10:58 PM) Yellow 07/22/2017 [facility] URINE AND STOOL UA Turbidity Marked *ABN* (07/21/17 10:58 PM) Clear 07/22/2017 [facility] URINE AND STOOL [...] UA WBC 6 0 - 5 07/22/2017 [facility] URINE AND STOOL UA Sq Epi Many /LPF Few /LPF 07/22/2017 [facility] URINE AND STOOL UA Amorph Anita Few /HPF None Seen /HPF 07/22/2017 [facility] URINE AND STOOL UA RBC 2 0 - 2 07/22/2017 [facility] URINE AND STOOL UA Urobilinogen <=1.0 mg/dL 0.1 - 1.0 07/22/2017 [facility] URINE CHEM U Preg Negative (07/21/17 10:58 PM) Negative 07/22/2017 [facility] TOXICOLOGY Vanco Tr TND 0800 03/14/2017 [facility] TOXICOLOGY Vanco Tr 17.6 03/14/2017 [facility] HEMATOLOGY MCH 26.4 27.0 - 31.0 03/14/2017 [facility] HEMATOLOGY MCV 78.2 80.0 - 98.0 03/14/2017 [facility] HEMATOLOGY Hct 32.8 36.0 - 48.0 03/14/2017 [facility] HEMATOLOGY Hgb 11.1 12.0 - 16.0 03/14/2017 [facility] HEMATOLOGY MCHC 33.7 32.0 - 36.0 03/14/2017 [facility] HEMATOLOGY RBC 4.20 4.20 - 5.40 03/14/2017 [facility] HEMATOLOGY WBC 10.7 3.7 - 10.4 03/14/2017 [facility] HEMATOLOGY RDW 15.5 11.5 - 14.5 03/14/2017 [facility] HEMATOLOGY MPV 8.3 7.4 - 10.4 03/14/2017 [facility] HEMATOLOGY Platelet 262 133 - 450 03/14/2017 [facility] TOXICOLOGY Vanco Tr 22.1 03/14/2017 [facility] TOXICOLOGY Vanco Tr TND 06:00 03/14/2017 [facility] CHEM PANEL eGFR 88 03/13/2017 Result [...] [facility] Calcium Lvl 8.0 8.5 - 10.5 03/13/2017 [facility] CHEM PANEL Glucose Lvl 139 70 - 99 03/13/2017 [facility] CHEM PANEL CO2 25 24 - 32 03/13/2017 [facility] CHEM PANEL AGAP 14.3 10.0 - 20.0 03/13/2017 [facility] CHEM PANEL Sodium Lvl 140 135 - 145 03/13/2017 [facility] CHEM PANEL Potassium Lvl 3.3 3.5 - 5.1 03/13/2017 [facility] CHEM PANEL Chloride Lvl 104 95 - 109 03/13/2017 [facility] CHEM PANEL BUN 11 7 - 22 03/13/2017 [facility] CHEM PANEL Creatinine Lvl 0.83 0.50 - 1.40 03/13/2017 [facility] HEMATOLOGY RBC 4.39 4.20 - 5.40 03/13/2017 [facility] HEMATOLOGY WBC 13.5 3.7 - 10.4 03/13/2017 [facility] HEMATOLOGY MPV 8.1 7.4 - 10.4 03/13/2017 [facility] HEMATOLOGY RDW 15.6 11.5 - 14.5 03/13/2017 [facility] Platelet 285 133 - 450 03/13/2017 [facility] MCHC 33.7 32.0 - 36.0 03/13/2017 [facility] MCH 26.0 27.0 - 31.0 03/13/2017 [facility] Hct 33.8 36.0 - 48.0 03/13/2017 [facility] MCV 77.1 80.0 - 98.0 03/13/2017 [facility] Hgb 11.4 12.0 - 16.0 03/13/2017 [facility] HEMATOLOGY Basophils 0.5 0.0 - 1.0 03/13/2017 [facility] HEMATOLOGY Lymphocytes # 3.7 1.0 - 5.5 03/13/2017 [facility] HEMATOLOGY Segs-Bands # 9.1 1.5 - 8.1 03/13/2017 [facility] Eosinophils # 0.2 0.0 - 0.5 03/13/2017 [facility] Monocytes # 0.5 0.0 - 0.8 03/13/2017 [facility] Microcyte 1+ *ABN* (03/13/17 4:59 AM) None Seen 03/13/2017 [facility] Basophils # 0.1 0.0 - 0.2 03/13/2017 [facility] Lymphocytes 27.6 20.0 - 40.0 03/13/2017 [facility] HEMATOLOGY Segs 66.9 45.0 - 75.0 03/13/2017 [facility] Eosinophils 1.3 0.0 - 4.0 03/13/2017 [facility] Monocytes 3.7 2.0 - 12.0 03/13/2017 [facility] [...] UA RBC 3 0 - 2 03/12/2017 [facility] [...] UA WBC 3 0 - 5 03/12/2017 [facility] [...] [facility] CHEM PANEL eGFR 79 03/12/2017 Result [...] estimated BMI. [facility] CHEM PANEL Chloride Lvl 106 95 - 109 03/12/2017 [facility] CHEM PANEL Potassium Lvl 3.9 3.5 - 5.1 03/12/2017 [facility] CHEM PANEL Sodium Lvl 140 135 - 145 03/12/2017 [facility] CHEM PANEL Total Protein 7.7 6.4 - 8.4 03/12/2017 [facility] CHEM PANEL Bili Total 0.4 0.2 - 1.3 03/12/2017 [facility] CHEM PANEL Alk Phos 110 39 - 136 03/12/2017 [facility] CHEM PANEL AST 14 0 - 37 03/12/2017 [facility] CHEM PANEL Calcium Lvl 8.9 8.5 - 10.5 03/12/2017 [facility] CHEM PANEL CO2 25 24 - 32 03/12/2017 [facility] CHEM PANEL ALT 20 0 - 65 03/12/2017 [facility] CHEM PANEL Albumin Lvl 3.3 3.5 - 5.0 03/12/2017 [facility] CHEM PANEL Glucose Lvl 102 70 - 99 03/12/2017 [facility] CHEM PANEL Creatinine Lvl 0.94 0.50 - 1.40 03/12/2017 [facility] CHEM PANEL BUN 11 7 - 22 03/12/2017 [facility] ENDOCRINOLOGY S Preg Negative *NA* (03/12/17 4:01 PM) Negative 03/12/2017 [facility] HEMATOLOGY Eosinophils 0.3 0.0 - 4.0 03/12/2017 [facility] HEMATOLOGY Monocytes 4.7 2.0 - 12.0 03/12/2017 [facility] HEMATOLOGY Segs 87.0 45.0 - 75.0 03/12/2017 [facility] HEMATOLOGY Lymphocytes 7.3 20.0 - 40.0 03/12/2017 [facility] HEMATOLOGY Basophils # 0.1 0.0 - 0.2 03/12/2017 [facility] HEMATOLOGY Monocytes # 0.9 0.0 - 0.8 03/12/2017 [facility] HEMATOLOGY Segs-Bands # 16.9 1.5 - 8.1 03/12/2017 [facility] HEMATOLOGY Basophils 0.7 0.0 - 1.0 03/12/2017 [facility] HEMATOLOGY Lymphocytes # 1.4 1.0 - 5.5 03/12/2017 [facility] HEMATOLOGY Microcyte 1+ *ABN* (03/12/17 4:01 PM) None Seen 03/12/2017 [facility] HEMATOLOGY PTT 28.5 22.9 - 35.8 03/12/2017 [facility] HEMATOLOGY PT 13.1 12.0 - 14.7 03/12/2017 [facility] HEMATOLOGY INR 0.97 0.85 - 1.17 03/12/2017 [facility] HEMATOLOGY Platelet 302 133 - 450 03/12/2017 [facility] HEMATOLOGY MPV 8.2 7.4 - 10.4 03/12/2017 [facility] HEMATOLOGY RBC 5.06 4.20 - 5.40 03/12/2017 [facility] HEMATOLOGY WBC 19.5 3.7 - 10.4 03/12/2017 [facility] HEMATOLOGY Hgb 13.0 12.0 - 16.0 03/12/2017 [facility] HEMATOLOGY MCV 77.2 80.0 - 98.0 03/12/2017 [facility] HEMATOLOGY Hct 39.1 36.0 - 48.0 03/12/2017 [facility] HEMATOLOGY MCHC 33.2 32.0 - 36.0 03/12/2017 [facility] HEMATOLOGY MCH 25.6 27.0 - 31.0 03/12/2017 [facility] HEMATOLOGY RDW 15.4 11.5 - 14.5 03/12/2017 [facility] CARDIAC ENZYMES Troponin-I <0.02 0.00 - 0.40 11/05/2016 [facility] CARDIAC ENZYMES CK MB Index <1.4 0.0 - 2.5 11/05/2016 [facility] CARDIAC ENZYMES CK MB <0.5 0.5 - 3.6 11/05/2016 [facility] CARDIAC ENZYMES Total CK 37 12 - 191 11/05/2016 [facility] CARDIAC ENZYMES CK MB Index 2.9 0.0 - 2.5 11/05/2016 [facility] CARDIAC ENZYMES BNP 9 <=100 pg/mL 11/05/2016 [facility] CARDIAC ENZYMES Troponin-I <0.02 0.00 - 0.40 11/05/2016 [facility] CARDIAC ENZYMES Total CK 24 12 - 191 11/05/2016 [facility] CARDIAC ENZYMES CK MB 0.7 0.5 - 3.6 11/05/2016 [facility] CHEM PANEL Magnesium Lvl 2.0 1.8 - 2.4 11/05/2016 [facility] CHEM PANEL Bili Total 0.2 0.2 - 1.3 11/05/2016 [facility] CHEM PANEL eGFR 92 11/05/2016 Result [...] [facility] CHEM PANEL AGAP 10.6 10.0 - 20.0 11/05/2016 [facility] CHEM PANEL B/C Ratio 16 6 - 25 11/05/2016 [facility] CHEM PANEL A/G Ratio 0.8 0.7 - 1.6 11/05/2016 [facility] CHEM PANEL Globulin 3.9 2.7 - 4.2 11/05/2016 [facility] CHEM PANEL BUN 13 7 - 22 11/05/2016 [facility] CHEM PANEL Glucose Lvl 109 70 - 99 11/05/2016 [facility] CHEM PANEL Calcium Lvl 9.0 8.5 - 10.5 11/05/2016 [facility] CHEM PANEL Total Protein 6.9 6.4 - 8.4 11/05/2016 [facility] CHEM PANEL AST 7 0 - 37 11/05/2016 [facility] CHEM PANEL Sodium Lvl 140 135 - 145 11/05/2016 [facility] CHEM PANEL Creatinine Lvl 0.81 0.50 - 1.40 11/05/2016 [facility] CHEM PANEL ALT 13 0 - 65 11/05/2016 [facility] CHEM PANEL Alk Phos 97 39 - 136 11/05/2016 [facility] CHEM PANEL Albumin Lvl 3.0 3.5 - 5.0 11/05/2016 [facility] CHEM PANEL Chloride Lvl 106 95 - 109 11/05/2016 [facility] CHEM PANEL Potassium Lvl 3.6 3.5 - 5.1 11/05/2016 [facility] CHEM PANEL CO2 27 24 - 32 11/05/2016 [facility] CHEM PANEL Lipase Lvl 96 73 - 393 11/05/2016 [facility] ENDOCRINOLOGY S Preg Negative *NA* (11/04/16 11:02 PM) Negative 11/05/2016 [facility] HEMATOLOGY Monocytes # 0.7 0.0 - 0.8 11/05/2016 [facility] HEMATOLOGY Lymphocytes # 3.2 1.0 - 5.5 11/05/2016 [facility] HEMATOLOGY Segs-Bands # 7.1 1.5 - 8.1 11/05/2016 [facility] HEMATOLOGY Monocytes 5.9 2.0 - 12.0 11/05/2016 [facility] Lymphocytes 28.4 20.0 - 40.0 11/05/2016 [facility] HEMATOLOGY Segs 63.7 45.0 - 75.0 11/05/2016 [facility] HEMATOLOGY Basophils 0.7 0.0 - 1.0 11/05/2016 [facility] HEMATOLOGY Eosinophils 1.3 0.0 - 4.0 11/05/2016 [facility] HEMATOLOGY Basophils # 0.1 0.0 - 0.2 11/05/2016 [facility] HEMATOLOGY Eosinophils # 0.1 0.0 - 0.5 11/05/2016 [facility] HEMATOLOGY Microcyte 1+ *ABN* (11/04/16 11:02 PM) None Seen 11/05/2016 [facility] HEMATOLOGY PTT 29.2 22.9 - 35.8 11/05/2016 [facility] HEMATOLOGY INR 1.01 0.85 - 1.17 11/05/2016 [facility] HEMATOLOGY PT 13.5 12.0 - 14.7 11/05/2016 [facility] HEMATOLOGY Platelet 280 133 - 450 11/05/2016 [facility] HEMATOLOGY RDW 15.6 11.5 - 14.5 11/05/2016 [facility] MCHC 34.3 32.0 - 36.0 11/05/2016 [facility] MCH 27.0 27.0 - 31.0 11/05/2016 [facility] Hct 35.6 36.0 - 48.0 11/05/2016 [facility] HEMATOLOGY Hgb 12.2 12.0 - 16.0 11/05/2016 [facility] HEMATOLOGY RBC 4.53 4.20 - 5.40 11/05/2016 [facility] HEMATOLOGY WBC 11.1 3.7 - 10.4 11/05/2016 [facility] HEMATOLOGY MCV 78.6 80.0 - 98.0 11/05/2016 [facility] HEMATOLOGY MPV 8.4 7.4 - 10.4 11/05/2016 [facility] CARDIAC ENZYMES Troponin-I <0.02 0.00 - 0.40 05/17/2016 [facility] [...] Slight *ABN* (05/17/16 3:53 AM) Clear 05/17/2016 [facility] URINE AND STOOL UA Mucus Few /LPF None Seen /LPF 05/17/2016 [facility] URINE AND STOOL UA Trans Epi 1 <=0 /LPF 05/17/2016 [facility] URINE AND STOOL UA RBC 8 [facility] Lip[facility] L[facility] 228 73 - 393 05/17/2016 [facility] CHEM PANEL eGFR 95 05/17/2016 [facility] Alk Phos 111 39 - 136 05/17/2016 [facility] CHEM PANEL Bili Total 0.4 0.2 - 1.3 05/17/2016 [facility] CHEM PANEL AST 41 0 - 37 05/17/2016 [facility] CHEM PANEL Albumin Lvl 3.4 3.5 - 5.0 05/17/2016 [facility] CHEM PANEL Total Protein 7.3 6.4 - 8.4 05/17/2016 [facility] CHEM PANEL Calcium Lvl 8.8 8.5 - 10.5 05/17/2016 [facility] CHEM PANEL ALT 50 0 - 65 05/17/2016 [facility] CHEM PANEL CO2 25 24 - 32 05/17/2016 [facility] CHEM PANEL Chloride Lvl 109 95 - 109 05/17/2016 [facility] CHEM PANEL Sodium Lvl 142 135 - 145 05/17/2016 [facility] CHEM PANEL Creatinine Lvl 0.79 0.50 - 1.40 05/17/2016 [facility] CHEM PANEL Potassium Lvl 3.7 3.5 - 5.1 05/17/2016 [facility] CHEM PANEL Glucose Lvl 99 70 - 99 05/17/2016 [facility] CHEM PANEL BUN 13 7 - 22 05/17/2016 [facility] CHEM PANEL A/G Ratio 0.9 0.7 - 1.6 05/17/2016 [facility] CHEM PANEL Globulin 3.9 2.7 - 4.2 05/17/2016 [facility] CHEM PANEL B/C Ratio 16 6 - 25 05/17/2016 [facility] CHEM PANEL AGAP 11.7 10.0 - 20.0 05/17/2016 [facility] HEMATOLOGY Eosinophils 1.6 0.0 - 4.0 05/17/2016 [facility] HEMATOLOGY Basophils 0.9 0.0 - 1.0 05/17/2016 [facility] HEMATOLOGY Segs-Bands # 3.7 1.5 - 8.1 05/17/2016 [facility] HEMATOLOGY Monocytes 7.5 2.0 - 12.0 05/17/2016 [facility] HEMATOLOGY Monocytes # 0.6 0.0 - 0.8 05/17/2016 [facility] HEMATOLOGY Basophils # 0.1 0.0 - 0.2 05/17/2016 [facility] HEMATOLOGY Lymphocytes # 3.1 1.0 - 5.5 05/17/2016 [facility] HEMATOLOGY Eosinophils # 0.1 0.0 - 0.5 05/17/2016 [facility] HEMATOLOGY Lymphocytes 40.9 20.0 - 40.0 05/17/2016 [facility] HEMATOLOGY Segs 49.1 45.0 - 75.0 05/17/2016 [facility] HEMATOLOGY MPV 7.8 7.4 - 10.4 05/17/2016 [facility] HEMATOLOGY WBC 7.5 3.7 - 10.4 05/17/2016 [facility] HEMATOLOGY RBC 4.45 4.20 - 5.40 05/17/2016 [facility] HEMATOLOGY Hct 35.5 36.0 - 48.0 05/17/2016 [facility] HEMATOLOGY MCH 25.8 27.0 - 31.0 05/17/2016 [facility] HEMATOLOGY Hgb 11.5 12.0 - 16.0 05/17/2016 [facility] HEMATOLOGY MCV 79.7 80.0 - 98.0 05/17/2016 [facility] HEMATOLOGY MCHC 32.4 32.0 - 36.0 05/17/2016 [facility] HEMATOLOGY RDW 18.7 11.5 - 14.5 05/17/2016 [facility] HEMATOLOGY Platelet 238 133 - 450 05/17/2016 [facility] CARDIAC ENZYMES Troponin-I <0.02 0.00 - 0.40 05/13/2016 [facility] IMMUNOLOGY [place] Scr Negative (05/13/16 12:16 PM) Negative 05/13/2016 [...] Acid Lvl 0.6 0.5 - 2.2 05/13/2016 [facility] CARDIAC ENZYMES Troponin-I <0.02 0.00 - 0.40 05/13/2016 [facility] CARDIAC ENZYMES CK MB 0.6 0.5 - 3.6 05/13/2016 [facility] CARDIAC ENZYMES Total CK 44 12 - 191 05/13/2016 [facility] CARDIAC ENZYMES CK MB Index 1.4 0.0 - 2.5 05/13/2016 [facility] CHEM PANEL Procalcitonin Lvl 0.08 0.00 - 0.10 05/13/2016 [facility] CHEM PANEL eGFR 71 05/13/2016 Result [...] HEMATOLOGY Bands 0.0 0.0 - 11.0 05/13/2016 [facility] HEMATOLOGY Monocytes # 0.9 0.0 - 0.8 05/13/2016 [facility] HEMATOLOGY Eosinophils # 0.3 0.0 - 0.5 05/13/2016 [facility] HEMATOLOGY Lymphocytes # 4.4 1.0 - 5.5 05/13/2016 [facility] HEMATOLOGY Segs-Bands # 3.3 1.5 - 8.1 05/13/2016 [facility] HEMATOLOGY Polychrom Slight 05/13/2016 [facility] HEMATOLOGY Atypical Lymphs 2.0 <=0.0 % 05/13/2016 [facility] HEMATOLOGY Plt Morph Normal (05/13/16 9:15 AM) 05/13/2016 [facility] HEMATOLOGY MCHC 32.7 32.0 - 36.0 05/13/2016 [facility] HEMATOLOGY MCH 26.2 27.0 - 31.0 05/13/2016 [facility] HEMATOLOGY MCV 80.1 80.0 - 98.0 05/13/2016 [facility] HEMATOLOGY Hct 34.6 36.0 - 48.0 05/13/2016 [facility] HEMATOLOGY Hgb 11.3 12.0 - 16.0 05/13/2016 [facility] HEMATOLOGY WBC 8.8 3.7 - 10.4 05/13/2016 [facility] HEMATOLOGY MPV 8.3 7.4 - 10.4 05/13/2016 [facility] HEMATOLOGY Platelet 231 133 - 450 05/13/2016 [facility] HEMATOLOGY RDW 18.5 11.5 - 14.5 05/13/2016 [facility] HEMATOLOGY RBC 4.32 4.20 - 5.40 05/13/2016 [facility] HEMATOLOGY PTT 27.2 22.9 - 35.8 05/13/2016 [facility] HEMATOLOGY INR 1.01 0.85 - 1.17 05/13/2016 [facility] HEMATOLOGY PT 13.5 12.0 - 14.7 05/13/2016 [facility] VIRAL - SEROLOGY Influ A Negative (05/13/16 9:15 AM) Negative 05/13/2016 [facility] VIRAL - SEROLOGY Influ B Negative (05/13/16 9:15 AM) Negative 05/13/2016 [facility] URINE AND STOOL UA Spec Grav 1.024 <=1.030 04/20/2016 [facility] URINE AND STOOL UA Color Yellow *NA* (04/19/16 11:04 PM) Yellow 04/20/2016 [facility] URINE AND STOOL UA Turbidity Clear (04/19/16 11:04 PM) Clear 04/20/2016 [facility] URINE AND STOOL UA Sq Epi Few /LPF Few /LPF 04/20/2016 [facility] URINE AND STOOL UA Mucus Few /LPF None Seen /LPF 04/20/2016 [facility] URINE AND STOOL UA Nitrite Negative (04/19/16 11:04 PM) Negative 04/20/2016 [facility] URINE AND STOOL UA Leuk Est Trace *ABN* (04/19/16 11:04 PM) Negative 04/20/2016 [facility] URINE AND STOOL UA WBC 3 0 - 5 04/20/2016 [facility] URINE AND STOOL UA RBC 24 0 - 2 04/20/2016 [facility] [...] [facility] CHEM PANEL ALT 32 0 - 65 04/20/2016 [facility] CHEM PANEL Bili Total 0.4 0.2 - 1.3 04/20/2016 [facility] CHEM PANEL Alk Phos 103 39 - 136 04/20/2016 [facility] CHEM PANEL Albumin Lvl 3.2 3.5 - 5.0 04/20/2016 [facility] CHEM PANEL CO2 26 24 - 32 04/20/2016 [facility] CHEM PANEL AST 30 0 - 37 04/20/2016 [facility] CHEM PANEL Total Protein 7.5 6.4 - 8.4 04/20/2016 [facility] CHEM PANEL Calcium Lvl 8.5 8.5 - 10.5 04/20/2016 [facility] CHEM PANEL eGFR 78 04/20/2016 Result [facility] Creatinine Lvl 0.93 0.50 - 1.40 04/20/2016 [facility] CHEM PANEL BUN 11 7 - 22 04/20/2016 [facility] CHEM PANEL Sodium Lvl 140 135 - 145 04/20/2016 [facility] CHEM PANEL Chloride Lvl 106 95 - 109 04/20/2016 [facility] CHEM PANEL Potassium Lvl 3.7 3.5 - 5.1 04/20/2016 [facility] CHEM PANEL Glucose Lvl 97 70 - 99 04/20/2016 [facility] CHEM PANEL Globulin 4.3 2.7 - 4.2 04/20/2016 [facility] CHEM PANEL A/G Ratio 0.7 0.7 - 1.6 04/20/2016 [facility] CHEM PANEL B/C Ratio 12 6 - 25 04/20/2016 [facility] CHEM PANEL AGAP 11.7 10.0 - 20.0 04/20/2016 [facility] CHEM PANEL Lactic Acid Lvl 0.8 0.5 - 2.2 04/20/2016 [facility] HEMATOLOGY WBC 6.7 3.7 - 10.4 04/20/2016 [facility] HEMATOLOGY RBC 4.72 4.20 - 5.40 04/20/2016 [facility] HEMATOLOGY Hct 36.8 36.0 - 48.0 04/20/2016 [facility] Hgb 12.3 12.0 - 16.0 04/20/2016 [facility] HEMATOLOGY MCH 26.1 27.0 - 31.0 04/20/2016 [facility] HEMATOLOGY MCV 77.9 80.0 - 98.0 04/20/2016 [facility] MCHC 33.5 32.0 - 36.0 04/20/2016 [facility] HEMATOLOGY Platelet 252 133 - 450 04/20/2016 [facility] HEMATOLOGY RDW 15.6 11.5 - 14.5 04/20/2016 [facility] MPV 8.3 7.4 - 10.4 04/20/2016 [facility] HEMATOLOGY Segs 60.8 45.0 - 75.0 04/20/2016 [facility] HEMATOLOGY Monocytes 7.2 2.0 - 12.0 04/20/2016 [facility] Lymphocytes 27.9 20.0 - 40.0 04/20/2016 [facility] HEMATOLOGY Basophils 1.2 0.0 - 1.0 04/20/2016 [facility] Monocytes # 0.5 0.0 - 0.8 04/20/2016 [facility] HEMATOLOGY Lymphocytes # 1.9 1.0 - 5.5 04/20/2016 [facility] HEMATOLOGY Eosinophils 2.9 0.0 - 4.0 04/20/2016 [facility] Segs-Bands # 4.1 1.5 - 8.1 04/20/2016 [facility] HEMATOLOGY Eosinophils # 0.2 0.0 - 0.5 04/20/2016 [facility] Microcyte 1+ *ABN* (04/19/16 10:27 PM) None Seen 04/20/2016 [facility] HEMATOLOGY Basophils # 0.1 0.0 - 0.2 04/20/2016 [facility] VIRAL - SEROLOGY Influ B Negative (04/19/16 9:06 PM) Negative 04/20/2016 [facility] VIRAL - SEROLOGY Influ A Negative (04/19/16 9:06 PM) Negative 04/20/2016 [facility] URINE AND STOOL UA Urobilinogen <=1.0 mg/dL 0.1 - 1.0 01/07/2016 [facility] URINE AND STOOL UA Bacteria Occasional /HPF None Seen /HPF 01/07/2016 [facility] URINE AND STOOL UA RBC 7 0 - 2 01/07/2016 [facility] URINE AND STOOL UA WBC 8 0 - 5 01/07/2016 [facility] Gl[facility] Lvl 99 70 - 99 01/07/2016 [facility] CHEM PANEL eGFR 82 01/07/2016 Result [...] [facility] CHEM PANEL BUN 14 7 - 22 01/07/2016 [facility] CHEM PANEL Creatinine Lvl 0.89 0.50 - 1.40 01/07/2016 [facility] CHEM PANEL Potassium Lvl 3.6 3.5 - 5.1 01/07/2016 [facility] CHEM PANEL Sodium Lvl 139 135 - 145 01/07/2016 [facility] CHEM PANEL Calcium Lvl 8.6 8.5 - 10.5 01/07/2016 [facility] CHEM PANEL Chloride Lvl 108 95 - 109 01/07/2016 [facility] CHEM PANEL CO2 23 24 - 32 01/07/2016 [facility] CHEM PANEL AGAP 11.6 10.0 - 20.0 01/07/2016 [facility] MCHC 33.1 32.0 - 36.0 01/07/2016 [facility] RDW 14.5 11.5 - 14.5 01/07/2016 [facility] Platelet 315 133 - 450 01/07/2016 [facility] MPV 8.1 7.4 - 10.4 01/07/2016 [facility] MCV 80.4 80.0 - 98.0 01/07/2016 [facility] MCH 26.6 27.0 - 31.0 01/07/2016 [facility] Hct 38.7 36.0 - 48.0 01/07/2016 [facility] RBC 4.82 4.20 - 5.40 01/07/2016 [facility] Hgb 12.8 12.0 - 16.0 01/07/2016 [facility] WBC 14.6 3.7 - 10.4 01/07/2016 [facility] Segs-Bands # 10.9 1.5 - 8.1 01/07/2016 [facility] Lymphocytes # 2.7 1.0 - 5.5 01/07/2016 [facility] Monocytes # 0.7 0.0 - 0.8 01/07/2016 [facility] HEMATOLOGY Eosinophils # 0.1 0.0 - 0.5 01/07/2016 [facility] HEMATOLOGY Lymphocytes 18.5 20.0 - 40.0 01/07/2016 [facility] HEMATOLOGY Eosinophils 0.9 0.0 - 4.0 01/07/2016 [facility] HEMATOLOGY Segs 74.8 45.0 - 75.0 01/07/2016 [facility] HEMATOLOGY Monocytes 4.8 2.0 - 12.0 01/07/2016 [facility] HEMATOLOGY Basophils 1.0 0.0 - 1.0 01/07/2016 [facility] HEMATOLOGY Basophils # 0.1 0.0 - 0.2 01/07/2016 [facility] CHEM PANEL eGFR 69 12/20/2015 Result [...] [facility] CHEM PANEL BUN 11 7 - 22 12/20/2015 [facility] CHEM PANEL Glucose Lvl 92 70 - 99 12/20/2015 [facility] CHEM PANEL Calcium Lvl 8.7 8.5 - 10.5 12/20/2015 [facility] CHEM PANEL Sodium Lvl 141 135 - 145 12/20/2015 [facility] CHEM PANEL Creatinine Lvl 1.02 0.50 - 1.40 12/20/2015 [facility] CHEM PANEL Potassium Lvl 3.9 3.5 - 5.1 12/20/2015 [facility] CHEM PANEL CO2 26 24 - 32 12/20/2015 [facility] CHEM PANEL Chloride Lvl 106 95 - 109 12/20/2015 [facility] CHEM PANEL Alk Phos 110 39 - 136 12/20/2015 [facility] CHEM PANEL Bili Total 0.3 0.2 - 1.3 12/20/2015 [facility] CHEM PANEL Total Protein 7.3 6.4 - 8.4 12/20/2015 [facility] CHEM PANEL Albumin Lvl 3.3 3.5 - 5.0 12/20/2015 [facility] CHEM PANEL ALT 27 0 - 65 12/20/2015 [facility] CHEM PANEL AST 17 0 - 37 12/20/2015 [facility] CHEM PANEL A/G Ratio 0.8 0.7 - 1.6 12/20/2015 [facility] CHEM PANEL AGAP 12.9 10.0 - 20.0 12/20/2015 [facility] CHEM PANEL Globulin 4.0 2.0 - 4.0 12/20/2015 [facility] CHEM PANEL B/C Ratio 11 6 - 25 12/20/2015 [facility] HEMATOLOGY MPV 8.2 7.4 - 10.4 12/20/2015 [facility] HEMATOLOGY Platelet 309 133 - 450 12/20/2015 [facility] HEMATOLOGY MCH 26.8 27.0 - 31.0 12/20/2015 [facility] HEMATOLOGY MCV 81.3 80.0 - 98.0 12/20/2015 [facility] HEMATOLOGY RDW 14.3 11.5 - 14.5 12/20/2015 [facility] HEMATOLOGY MCHC 32.9 32.0 - 36.0 12/20/2015 [facility] HEMATOLOGY WBC 16.6 3.7 - 10.4 12/20/2015 [facility] HEMATOLOGY RBC 4.87 4.20 - 5.40 12/20/2015 [facility] HEMATOLOGY Hct 39.6 36.0 - 48.0 12/20/2015 [facility] HEMATOLOGY Hgb 13.0 12.0 - 16.0 12/20/2015 [facility] HEMATOLOGY Basophils # 0.2 0.0 - 0.2 12/20/2015 [facility] HEMATOLOGY Segs-Bands # 13.1 1.5 - 8.1 12/20/2015 [facility] HEMATOLOGY Monocytes 3.5 2.0 - 12.0 12/20/2015 [facility] HEMATOLOGY Eosinophils 0.7 0.0 - 4.0 12/20/2015 [facility] HEMATOLOGY Basophils 1.1 0.0 - 1.0 12/20/2015 [facility] HEMATOLOGY Segs 79.3 45.0 - 75.0 12/20/2015 [facility] HEMATOLOGY Lymphocytes 15.4 20.0 - 40.0 12/20/2015 [facility] HEMATOLOGY Lymphocytes # 2.5 1.0 - 5.5 12/20/2015 [facility] HEMATOLOGY Eosinophils # 0.1 0.0 - 0.5 12/20/2015 [facility] HEMATOLOGY Monocytes # 0.6 0.0 - 0.8 12/20/2015 [facility] URINE AND STOOL UA Urobilinogen <=1.0 mg/dL 0.1 - 1.0 12/20/2015 [facility] URINE AND STOOL UA Sq Epi Occasional /LPF Few /LPF 12/20/2015 [facility] URINE AND STOOL UA WBC 2 0 - 5 12/20/2015 [facility] [...] UA RBC 3 0 - 2 12/20/2015 [facility] [...] 1:23 AM) Negative 12/20/2015 [facility] CHEMISTRY AGAP 11.9 10.0 - 20.0 07/17/2013 Normal [facility] CHEMISTRY eGFR 44 07/17/2013 <sup>1</sup>Result Comment: [...] should be multiplied by the estimated BMI. [facility] CHEMISTRY Chloride Lvl 106 95 - 109 07/17/2013 Normal [facility] CHEMISTRY Sodium Lvl 140 135 - 145 07/17/2013 Normal [facility] CHEMISTRY Potassium Lvl 3.9 3.5 - 5.1 07/17/2013 Normal [facility] CHEMISTRY Calcium Lvl 8.8 8.5 - 10.5 07/17/2013 Normal [facility] CHEMISTRY CO2 26 24 - 32 07/17/2013 Normal [facility] CHEMISTRY Glucose Lvl 107 70 - 99 07/17/2013 [facility] <sup>2</sup>Interpretive Data: Adult reference range values reflect the clinical guidelines
of the [place] [employer]. [facility] CHEMISTRY BUN 15 7 - 22 07/17/2013 Normal [facility] CHEMISTRY Creatinine Lvl 1.5 0.5 - 1.4 07/17/2013 [facility] HEMATOLOGY Monocytes 2.9 2.0 - 12.0 07/17/2013 Normal [facility] HEMATOLOGY Lymphocytes 18.8 20.0 - 40.0 07/17/2013 LOW [facility] HEMATOLOGY Basophils 0.1 0.0 - 1.0 07/17/2013 Normal [facility] HEMATOLOGY Eosinophils 0.1 0.0 - 4.0 07/17/2013 Normal [facility] HEMATOLOGY Segs-Bands # 4.8 1.5 - 8.1 07/17/2013 Normal [facility] HEMATOLOGY Segs 78.1 45.0 - 75.0 07/17/2013 [facility] HEMATOLOGY Basophils # 0.0 0.0 - 0.2 07/17/2013 Normal [facility] HEMATOLOGY Lymphocytes # 1.2 1.0 - 5.5 07/17/2013 Normal [facility] HEMATOLOGY Eosinophils # 0.0 0.0 - 0.5 07/17/2013 Normal [facility] HEMATOLOGY Monocytes # 0.2 0.0 - 0.8 07/17/2013 Normal [facility] HEMATOLOGY RBC X 10x6 4.71 4.20 - 5.40 07/17/2013 Normal [facility] HEMATOLOGY WBC X 10x3 6.1 3.7 - 10.4 07/17/2013 Normal [facility] HEMATOLOGY Hct 37.6 36.0 - 48.0 07/17/2013 Normal [facility] HEMATOLOGY Hgb 12.3 12.0 - 16.0 07/17/2013 Normal [facility] HEMATOLOGY MCV 79.9 81.0 - 99.0 07/17/2013 LOW [facility] HEMATOLOGY MCHC 32.8 32.0 - 36.0 07/17/2013 Normal [facility] HEMATOLOGY MCH 26.2 27.0 - 31.0 07/17/2013 LOW [facility] HEMATOLOGY RDW 15.1 11.5 - 14.5 07/17/2013 [facility] HEMATOLOGY MPV 8.1 7.4 - 10.4 07/17/2013 Normal [facility] HEMATOLOGY Platelet 289 133 - 450 07/17/2013 Normal [facility] IMMUNOLOGY [facility] HIV 4th GEN Negative (07/17/2013 11:08:00) Negative 07/17/2013 Normal [facility] CHEMISTRY CK MB Index <2.2 0.0 - 2.5 07/02/2012 Normal [facility] CHEMISTRY CK MB <0.5 0.5 - 3.6 07/02/2012 Normal [facility] CHEMISTRY Total CK 23 12 - 191 07/02/2012 Normal [facility] CHEMISTRY eGFR 73 07/02/2012 NA <sup>1</sup>Result [...] should be multiplied by the estimated BMI. [facility] CHEMISTRY Glucose Lvl 100 70 - 99 07/02/2012 [facility] <sup>2</sup>Interpretive Data: Adult reference range values reflect the clinical guidelines
of the [place] [employer]. [facility] CHEMISTRY Sodium Lvl 139 135 - 145 07/02/2012 Normal [facility] CHEMISTRY Creatinine Lvl 1.0 0.5 - 1.4 07/02/2012 Normal [facility] CHEMISTRY BUN 12 7 - 22 07/02/2012 Normal [facility] CHEMISTRY ALT 18 0 - 65 07/02/2012 Normal [facility] CHEMISTRY Alk Phos 99 39 - 136 07/02/2012 Normal [facility] CHEMISTRY Albumin Lvl 3.6 3.5 - 5.0 07/02/2012 Normal [facility] CHEMISTRY Bili Total 0.2 0.2 - 1.3 07/02/2012 Normal [facility] CHEMISTRY AST 11 0 - 37 07/02/2012 Normal [facility] CHEMISTRY Chloride Lvl 104 95 - 109 07/02/2012 Normal [facility] CHEMISTRY Potassium Lvl 3.7 3.5 - 5.1 07/02/2012 Normal [facility] CHEMISTRY Total Protein 7.8 6.4 - 8.4 07/02/2012 Normal [facility] CHEMISTRY Calcium Lvl 9.3 8.5 - 10.5 07/02/2012 Normal [facility] CHEMISTRY CO2 28 24 - 32 07/02/2012 Normal [facility] CHEMISTRY Globulin 4.2 2.0 - 4.0 07/02/2012 [facility] CHEMISTRY B/C Ratio 12 6 - 25 07/02/2012 Normal [facility] CHEMISTRY AGAP 10.7 10.0 - 20.0 07/02/2012 Normal [facility] CHEMISTRY A/G Ratio 0.9 0.7 - 1.6 07/02/2012 Normal [facility] CHEMISTRY Troponin-I <0.02 0.00 - 0.40 07/02/2012 Normal [facility] HEMATOLOGY Monocytes # 0.5 0.0 - 0.8 07/02/2012 Normal [facility] HEMATOLOGY Lymphocytes # 2.6 1.0 - 5.5 07/02/2012 Normal [facility] HEMATOLOGY Eosinophils 0.6 0.0 - 4.0 07/02/[address] [facility] Segs-Bands # 9.7 1.5 - 8.1 07/02/2012 [facility] HEMATOLOGY Basophils 2.1 0.0 - 1.0 07/02/2012 [facility] HEMATOLOGY Basophils # 0.3 0.0 - 0.2 07/02/2012 [facility] HEMATOLOGY Eosinophils # 0.1 0.0 - 0.5 07/02/[address] [facility] Segs 73.5 45.0 - 75.0 07/02/[address] [facility] Lymphocytes 20.0 20.0 - 40.0 07/02/[address] [facility] Monocytes 3.8 2.0 - 12.0 07/02/[address] [facility] PTT 29.5 22.9 - 35.8 07/02/2012 Normal <sup>5</sup>Interpretive Data: Heparin Therapeutic Range: 57 - [address] [facility] PT 13.5 12.0 - 14.7 07/02/[address] [facility] INR 1.01 0.85 - 1.17 07/02/2012 Normal <sup>3</sup>Interpretive Data: RECOMMENDED RANGES FOR PROTIME INR:
2.0-3.0 for most medical and surgical thromboembolic states.
2.5-3.5 for artificial heart valves and recurrent embolism.

INR SHOULD BE USED ONLY FOR PATIENTS ON STABLE ANTICOAGULANT THERAPY. [facility] D-Dimer 4 *ABN* (07/01/2012 22:20:00) 07/02/2012 ABN <sup>4</sup>Interpretive Data: In DIC, quantitative D-Dimer is generally greater than
0.66 ug/mL FEU. Values of quantitative D-Dimer less than
0.40 ug/mL FEU have been reported to be associated with a low
probability of deep vein thrombosis/pulmonary embolism.
This test alone should not be used to rule out DVT/PE. [facility] WBC 13.2 3.7 - 10.4 07/02/[address] [facility] RDW 15.1 11.5 - 14.5 07/02/[address] [facility] MCHC 33.8 32.0 - 36.0 07/02/2012 Normal [facility] HEMATOLOGY RBC 4.87 4.20 - 5.40 07/02/2012 Normal [facility] HEMATOLOGY MCH 26.5 27.0 - 31.0 07/02/2012 LOW [facility] HEMATOLOGY MCV 78.4 81.0 - 99.0 07/02/2012 [facility] HEMATOLOGY Hct 38.2 36.0 - 48.0 07/02/2012 Normal [facility] HEMATOLOGY Hgb 12.9 12.0 - 16.0 07/02/2012 Normal [facility] HEMATOLOGY Platelet 320 133 - 450 07/02/2012 Normal [facility] HEMATOLOGY MPV 8.4 7.4 - 10.4 07/02/2012 Normal [facility] CHEMISTRY Magnesium Lvl 2.2 1.8 - 2.4 04/25/2012 Normal [facility] CHEMISTRY eGFR 113 04/25/2012 NA <sup>2</sup>Result [...] should be multiplied by the estimated BMI. [facility] CHEMISTRY Potassium Lvl 4.5 3.5 - 5.1 04/25/2012 Normal [facility] CHEMISTRY Calcium Lvl 8.2 8.5 - 10.5 04/25/2012 LOW [facility] CHEMISTRY CO2 29 24 - 32 04/25/2012 Normal [facility] CHEMISTRY Chloride Lvl 108 95 - 109 04/25/2012 Normal [facility] CHEMISTRY Sodium Lvl 142 135 - 145 04/25/2012 Normal [facility] CHEMISTRY BUN 13 7 - 22 04/25/2012 Normal [facility] CHEMISTRY Glucose Lvl 192 70 - 99 04/25/2012 [facility] <sup>5</sup>Interpretive Data: Adult reference range values reflect the clinical guidelines
of the [place] [employer]. [facility] CHEMISTRY Creatinine Lvl 0.7 0.5 - 1.4 04/25/2012 Normal [facility] CHEMISTRY AGAP 9.5 10.0 - 20.0 04/25/2012 [facility] HEMATOLOGY PT 14.9 12.0 - 14.7 04/25/2012 [facility] HEMATOLOGY INR 1.15 0.85 - 1.17 04/25/2012 Normal <sup>9</sup>Interpretive Data: RECOMMENDED RANGES FOR PROTIME INR:
2.0-3.0 for most medical and surgical thromboembolic states.
2.5-3.5 for artificial heart valves and recurrent embolism.

INR SHOULD BE USED ONLY FOR PATIENTS ON STABLE ANTICOAGULANT THERAPY. [facility] HEMATOLOGY MPV 8.5 7.4 - 10.4 04/25/2012 Normal [facility] HEMATOLOGY Platelet 279 133 - 450 04/25/2012 Normal [facility] HEMATOLOGY RDW 16.2 11.5 - 14.5 04/25/2012 [facility] HEMATOLOGY MCHC 34.2 32.0 - 36.0 04/25/2012 Normal [facility] HEMATOLOGY Hgb 10.5 12.0 - 16.0 04/25/2012 [facility] HEMATOLOGY WBC 11.8 3.7 - 10.4 04/25/2012 [facility] HEMATOLOGY Hct 30.9 36.0 - 48.0 04/25/2012 [facility] HEMATOLOGY MCV 80.4 81.0 - 99.0 04/25/2012 [facility] HEMATOLOGY RBC 3.84 4.20 - 5.40 04/25/2012 [facility] HEMATOLOGY MCH 27.5 27.0 - 31.0 04/25/2012 Normal [facility] HEMATOLOGY Eosinophils # 0.0 0.0 - 0.5 04/25/2012 Normal [facility] HEMATOLOGY Lymphocytes # 1.0 1.0 - 5.5 04/25/2012 Normal [facility] HEMATOLOGY Monocytes # 0.4 0.0 - 0.8 04/25/2012 [facility] HEMATOLOGY Segs-Bands # 10.4 1.5 - 8.1 04/25/2012 [facility] HEMATOLOGY Eosinophils 0.0 0.0 - 4.0 04/25/2012 [facility] HEMATOLOGY Basophils 0.1 0.0 - 1.0 04/25/2012 Normal [facility] HEMATOLOGY Basophils # 0.0 0.0 - 0.2 04/25/2012 Normal [facility] HEMATOLOGY Monocytes 3.1 2.0 - 12.0 04/25/2012 Normal [facility] HEMATOLOGY Segs 88.7 45.0 - 75.0 04/25/2012 HI [facility] HEMATOLOGY Lymphocytes 8.1 20.0 - 40.0 04/25/2012 LOW [facility] CHEMISTRY FiO2 Art 21.0 04/24/2012 NA [facility] CHEMISTRY Mode Art Rm Air (04/24/2012 14:25:00) 04/24/2012 Normal [facility] CHEMISTRY Allens Art Positive (04/24/2012 14:25:00) 04/24/2012 Normal [facility] CHEMISTRY Site Art Right Ra (04/24/2012 14:25:00) 04/24/2012 Normal [facility] CHEMISTRY HCO3 Art 27 22 - 26 04/24/2012 HI [facility] CHEMISTRY O2 Sat Art 93.3 95.0 - 100.0 04/24/2012 LOW [facility] CHEMISTRY BE Art 2 -2-2 - 2 04/24/2012 [facility] [facility] CHEMISTRY pH Art 7.40 7.35 - 7.45 04/24/2012 Normal [facility] CHEMISTRY pO2 Art 65 80 - 100 04/24/2012 LOW [facility] CHEMISTRY pCO2 Art 45 35 - 45 04/24/2012 Normal [facility] HEMATOLOGY PT 15.9 12.0 - 14.7 04/24/2012 HI [facility] HEMATOLOGY INR 1.25 0.85 - 1.17 04/24/2012 [facility] <sup>10</sup>Interpretive Data: RECOMMENDED RANGES FOR PROTIME INR:
2.0-3.0 for most medical and surgical thromboembolic states.
2.5-3.5 for artificial heart valves and recurrent embolism.

INR SHOULD BE USED ONLY FOR PATIENTS ON STABLE ANTICOAGULANT THERAPY. [facility] CHEMISTRY eGFR 96 04/24/2012 NA <sup>3</sup>Result [...] should be multiplied by the estimated BMI. [facility] CHEMISTRY Calcium Lvl 8.3 8.5 - 10.5 04/24/2012 LOW [facility] CHEMISTRY Potassium Lvl 4.7 3.5 - 5.1 04/24/2012 Normal [facility] CHEMISTRY CO2 28 24 - 32 04/24/2012 Normal [facility] CHEMISTRY Chloride Lvl 109 95 - 109 04/24/2012 Normal [facility] CHEMISTRY BUN 11 7 - 22 04/24/2012 Normal [facility] CHEMISTRY Glucose Lvl 143 70 - 99 04/24/2012 [facility] <sup>6</sup>Interpretive Data: Adult reference range values reflect the clinical guidelines
of the [place] [employer]. [facility] CHEMISTRY Creatinine Lvl 0.8 0.5 - 1.4 04/24/2012 Normal [facility] CHEMISTRY Sodium Lvl 141 135 - 145 04/24/2012 Normal [facility] CHEMISTRY AGAP 8.7 10.0 - 20.0 04/24/2012 LOW [facility] CHEMISTRY Magnesium Lvl 2.0 1.8 - 2.4 04/24/2012 Normal [facility] HEMATOLOGY Lymphocytes 6.3 20.0 - 40.0 04/24/2012 LOW [facility] HEMATOLOGY Segs 90.4 45.0 - 75.0 04/24/2012 [facility] HEMATOLOGY Eosinophils 0.0 0.0 - 4.0 04/24/2012 Normal [facility] HEMATOLOGY Monocytes 3.3 2.0 - 12.0 04/24/2012 Normal [facility] HEMATOLOGY Basophils # 0.0 0.0 - 0.2 04/24/2012 Normal [facility] HEMATOLOGY Lymphocytes # 1.0 1.0 - 5.5 04/24/2012 Normal [facility] HEMATOLOGY Segs-Bands # 14.7 1.5 - 8.1 04/24/2012 [facility] HEMATOLOGY Eosinophils # 0.0 0.0 - 0.5 04/24/2012 Normal [facility] HEMATOLOGY Monocytes # 0.5 0.0 - 0.8 04/24/2012 [facility] HEMATOLOGY Basophils 0.0 0.0 - 1.0 04/24/2012 Normal [facility] HEMATOLOGY Hgb 10.5 12.0 - 16.0 04/24/2012 LOW [facility] HEMATOLOGY RBC 3.84 4.20 - 5.40 [...] Platelet 287 133 - 450 04/24/2012 Normal [facility] HEMATOLOGY MPV 8.8 7.4 - 10.4 [...] AGAP 11.1 10.0 - 20.0 04/23/2012 Normal [facility] CHEMISTRY eGFR 83 04/23/2012 NA <sup>4</sup>Result [...] should be multiplied by the estimated BMI. [facility] CHEMISTRY Calcium Lvl 8.9 8.5 - 10.5 04/23/2012 Normal [facility] CHEMISTRY CO2 27 24 - 32 04/23/2012 Normal [facility] CHEMISTRY Potassium Lvl 4.1 3.5 - 5.1 04/23/2012 Normal [facility] CHEMISTRY Chloride Lvl 106 95 - 109 04/23/2012 Normal [facility] CHEMISTRY Sodium Lvl 140 135 - 145 04/23/2012 Normal [facility] CHEMISTRY Glucose Lvl 163 70 - 99 04/23/2012 [facility] <sup>7</sup>Interpretive Data: Adult reference range values reflect the clinical guidelines
of the [place] [employer]. [facility] CHEMISTRY Creatinine Lvl 0.9 0.5 - 1.4 04/23/2012 Normal [facility] CHEMISTRY BUN 8 7 - 22 04/23/2012 Normal [facility] HEMATOLOGY MCH 27.5 27.0 - 31.0 04/23/2012 Normal [facility] HEMATOLOGY MCV 79.5 81.0 - 99.0 04/23/2012 LOW [facility] HEMATOLOGY RDW 15.8 11.5 - 14.5 04/23/2012 HI [facility] HEMATOLOGY MPV 8.5 7.4 - 10.4 04/23/2012 Normal [facility] HEMATOLOGY Platelet 258 133 - 450 04/23/2012 Normal [facility] HEMATOLOGY Hct 30.7 36.0 - 48.0 04/23/2012 LOW [facility] HEMATOLOGY MCHC 34.5 32.0 - 36.0 04/23/2012 Normal [facility] HEMATOLOGY WBC 8.9 3.7 - 10.4 04/23/2012 Normal [facility] HEMATOLOGY RBC 3.86 4.20 - 5.40 04/23/2012 LOW [facility] HEMATOLOGY Hgb 10.6 12.0 - 16.0 04/23/2012 LOW [facility] HEMATOLOGY Segs-Bands # 8.2 1.5 - 8.1 04/23/2012 [facility] HEMATOLOGY Basophils # 0.0 0.0 - 0.2 04/23/2012 Normal [facility] HEMATOLOGY Eosinophils # 0.0 0.0 - 0.5 04/23/2012 Normal [facility] HEMATOLOGY Monocytes # 0.2 0.0 - 0.8 04/23/2012 Normal [facility] HEMATOLOGY Lymphocytes # 0.6 1.0 - 5.5 04/23/2012 LOW [facility] HEMATOLOGY Segs 91.5 45.0 - 75.0 04/23/2012 [facility] HEMATOLOGY Basophils 0.5 0.0 - 1.0 04/23/2012 Normal [facility] HEMATOLOGY Eosinophils 0.0 0.0 - 4.0 04/23/2012 Normal [facility] HEMATOLOGY Monocytes 1.7 2.0 - 12.0 04/23/2012 LOW [facility] HEMATOLOGY Lymphocytes 6.3 20.0 - 40.0 04/23/2012 LOW [facility] HEMATOLOGY PTT 44.2 22.9 - 35.8 04/23/2012 [facility] <sup>13</sup>Interpretive Data: Heparin Therapeutic Range: 57 - 92 Seconds [facility] HEMATOLOGY PT 14.5 12.0 - 14.7 04/23/2012 Normal [facility] HEMATOLOGY INR 1.11 0.85 - 1.17 04/23/2012 Normal <sup>11</sup>Interpretive Data: RECOMMENDED RANGES FOR PROTIME INR:
2.0-3.0 for most medical and surgical thromboembolic states.
2.5-3.5 for artificial heart valves and recurrent embolism.

INR SHOULD BE USED ONLY FOR PATIENTS ON STABLE ANTICOAGULANT THERAPY. [facility] Microbiology Gram Stain 04/22/2012 [facility] Microbiology Culture: Respiratory w/Gram Stain 04/22/2012 [facility] HEMATOLOGY D-Dimer 0.47 04/22/2012 NA <sup>12</sup>Interpretive Data: In DIC, quantitative D-Dimer is generally greater than
0.66 ug/mL FEU. Values of quantitative D-Dimer less than
0.40 ug/mL FEU have been reported to be associated with a low
probability of deep vein thrombosis/pulmonary embolism.
This test alone should not be used to rule out DVT/PE. [facility] BACTERIAL - SEROLOGY U S pneumo Ag Negative (04/22/2012 09:30:00) Negative 04/22/2012 Normal [facility] MICRO MISC - SEROLOGY U Legion Ag Negative 1 (04/22/2012 09:30:00) Negative 04/22/2012 Normal <sup>1</sup>Interpretive Data: This kit tests for Legionella pneumophila Serogroup 1 Antigen. [facility] Microbiology Culture: Urine 04/22/2012 [facility] CHEMISTRY Ferritin Lvl 58 5 - 204 04/22/2012 Normal [facility] CHEMISTRY Iron 34 30 - 160 04/22/2012 Normal [facility] Microbiology Culture: Blood 04/22/2012 [facility] Microbiology Culture: Blood 04/22/2012 [facility] CHEMISTRY Allens Art N/A (04/22/2012 07:38:00) 04/22/2012 Normal [facility] CHEMISTRY Mode Art Rm Air (04/22/2012 07:38:00) 04/22/2012 Normal [facility] CHEMISTRY pH Art 7.44 7.35 - 7.45 04/22/2012 Normal [facility] CHEMISTRY pCO2 Art 40 35 - 45 04/22/2012 Normal [facility] CHEMISTRY pO2 Art 60 80 - 100 04/22/2012 CRIT <sup>8</sup>Result Comment: Critical Result(s) called to at 04/22/2012 07:40:31 ASSISTED LIVING COORDINATOR by Reece,CONNOR. Read back OK. [facility] CHEMISTRY HCO3 Art 26 22 - 26 04/22/2012 Normal [facility] CHEMISTRY BE Art 2 -2-2 - 2 04/22/2012 Normal [facility] CHEMISTRY O2 Sat Art 92.9 95.0 - 100.0 04/22/2012 LOW [facility] CHEMISTRY Site Art Right Br (04/22/2012 07:38:00) 04/22/2012 Normal [facility] CHEMISTRY A/G Ratio 0.9 0.7 - 1.6 04/22/2012 Normal [facility] CHEMISTRY B/C Ratio 8 6 - 25 04/22/2012 Normal [facility] CHEMISTRY Globulin 3.8 2.0 - 4.0 04/22/2012 Normal [facility] CHEMISTRY AST 20 0 - 37 04/22/2012 Normal [facility] CHEMISTRY ALT 19 0 - 65 04/22/2012 Normal [facility] CHEMISTRY Albumin Lvl 3.3 3.5 - 5.0 04/22/2012 LOW [facility] CHEMISTRY Total Protein 7.1 6.4 - 8.4 04/22/2012 Normal [facility] CHEMISTRY Bili Total 0.2 0.2 - 1.3 04/22/2012 Normal [facility] CHEMISTRY Alk Phos 91 39 - 136 04/22/2012 Normal [facility] CHEMISTRY S Preg Negative *NA* (04/22/2012 02:15:00) Negative 04/22/2012 NA [facility] HEMATOLOGY Protein S Func 109 54 - 137 04/22/2012 Normal [facility] HEMATOLOGY Protein C Func 172 72 - 147 04/22/2012 HI [facility] HEMATOLOGY PTT 35.4 22.9 - 35.8 04/22/2012 Normal <sup>14</sup>Interpretive Data: Heparin Therapeutic Range: 57 - 92 Seconds [facility] Pathology Reports No Data Provided for [...] of acute cardiopulmonary disease. SL: MARGARET 09/28/2018 [facility] 1view DX Clinical Indication:42 years Female with Coughing - persistent cough Comparison: Chest x-ray 07/28/2018 FINDINGS: Lines: None. The single frontal chest radiograph shows normal lung volumes. No interstitial or airspace opacities. No pleural effusion. No pneumothorax. Cardiac silhouette is normal. Pulmonary vasculature is normal. The trachea is midline. There are no acute osseous abnormalities noted. IMPRESSION: No acute cardiopulmonary abnormality. 07/31/2018 [facility] 1view DX Clinical Indication: Shortness of breath. Comparison: 03/03/2018 FINDINGS: AP view of the chest submitted for interpretation. Lungs are clear. Heart size is normal. Central pulmonary vasculature appears normal. No effusion. No pneumothorax. No radiographically apparent acute osseous abnormality. IMPRESSION: 1. No radiographically apparent acute cardiopulmonary process. SL: [id number] 07/27/2018 [facility] Chest Pulmonary Embolism CTA Clinical Indication: [...] due to mild tracheomalacia SL: KPATEL-M 07/27/2018 [facility] ED Abdomen/Pelvis IV contrast [...] Appendix within normal limits. SL: KPATEL-M 03/16/2018 [facility] Chest 2 views DX EXAM: Chest 2 views DX DATE: 03/03/2018 10:11 AM CDT INDICATION: - cough COMPARISON: 02/10/2018. IMPRESSION: Stable cardiac silhouette and mediastinum. No focal consolidation, significant pleural effusion or pneumothorax. SL: [id number] 03/03/2018 [facility] Chest 2 views DX PROCEDURE: Chest, [...] an acute cardiopulmonary process. SL: GERTRUDE 02/10/2018 [facility] Spine lumbar wo contrast [...] and moderate thecal sac stenosis. 11/18/2017 [facility] Chest Pulmonary Embolism CTA EXAM: CT CHEST [...] generated. IV contrast: 100 cc Omnipaque. Dose: NMZ=515.95 mGy-cm FINDINGS: PULMONARY ARTERIES: No central or [...] abnormality. No pulmonary embolism. SL: WR4-M 09/29/2017 [facility] Chest 1view DX EXAM: Chest 1view DX DATE: 09/29/2017 2:31 PM CDT INDICATION: - SOB COMPARISON: None. IMPRESSION: Stable cardiac silhouette and mediastinum. No focal consolidation, significant pleural effusion or pneumothorax. SL: [id number] 09/29/2017 [facility] Spine thoracic 2 views DX THORACIC SPINE RADIOGRAPH 2 VIEWS INDICATION: Posttraumatic thoracic spine pain COMPARISON: None DISCUSSION: Vertebral body alignment is within normal limits. The disc spaces are maintained. The bones appear well mineralized. No acute compression or displaced fractures are identified. The paravertebral soft tissues are grossly unremarkable. IMPRESSION: Unremarkable radiographic appearance of the thoracic spine. SL:16 07/21/2017 [facility] Spine lumbar 2 or [...] No fracture or subluxation SL: [id number] 07/21/2017 [facility] Spine cervical wo contrast CT EXAM: [...] or malalignment of the cervical spine. SL: [id number] 03/12/2017 [facility] Chest/Abdomen/Pelvis w IV contrast CT EXAM: [...] contrast: [address] Radiation Dose: EBG=9859.79 mGy-cm FINDINGS: CHEST LUNG PARENCHYMA AND PLEURA: [...] pneumonitis. 2. No acute osseous abnormality. SL: [id number] 03/12/2017 [facility] 1view DX Patient Name: JAROD MEYERS : 1975; Age: 41 years y/o Female MR: [id number] Study: Chest 1view DX 03/12/2017 3:41 PM [...] pulmonary infiltrates. Correlate clinically for pneumonia. SL: [id number] 03/12/2017 [facility] Pulmonary Embolism CTA PROCEDURE: CTA CHEST WITH [...] IMPRESSION: Negative. END REPORT SL: WR1-M 11/05/2016 [facility] 1view DX Exam: Chest X-Ray Clinical Indication: Chest pain. Technique: Frontal view of the chest is provided. Findings: Heart and mediastinum are normal. Lungs are clear. There are no pleural effusions. Impression: No acute intrathoracic disease. 11/04/2016 [facility] Abdomen AP DX ABDOMEN SUPINE CLINICAL [...] clinical diagnosis of constipation. SL: [id number]-PC 05/17/2016 [facility] Pulmonary Embolism CTA Clinical Indication: Epigastric pain in left chest pain radiating to left arm, history of PE, cough and fever; Comparison: CT of the chest 07/02/2012 TECHNIQUE: Sequential trans-axial images were obtained thru the chest and upper abdomen after administration of iodinated contrast. Coronal and sagittal reconstructions were obtained. 75 cc of Omnipaque 350 was used for the exam. Dose: BJY=469 mGy-cm FINDINGS: LUNG PARENCHYMA AND PLEURA: There [...] pulmonary arterial hypertension. 4. Mild splenomegaly SL: [id number] 05/13/2016 [facility] 1view DX CHEST, 1 VIEW HISTORY: Fever; chest pain COMPARISON: 04/19/2016 FINDINGS: The lungs are clear. No pleural effusion or pneumothorax. Heart size normal. No acute osseous abnormality. SL: [id number] 05/13/2016 [facility] 2 views DX Two-view chest x-ray compared to 07/17/2013. History: Chest pain Comments: The trachea is midline. The cardiomediastinal silhouette is normal in size. No pneumonia. No pleural effusions or pneumothorax. Impression: No acute cardiopulmonary disease. 04/19/2016 [facility] Spine cervical 2 or [...] for fracture or subluxation. SL: ELVIA 01/07/2016 [facility] ED Abdomen/Pelvis IV contrast [...] Please correlate with urinalysis. SL: MISSAEL 12/20/2015 [facility] Thoracic wo contrast MRI NAME: JAROD [...] or cord signal abnormality. SL: 24 02/17/2015 [facility] Outpatient [facility] Spine lumbar wo contrast MRI Name: [...] nerve roots. SL: ROSALINA CHAPPELL 53 02/17/2015 [facility] Outpatient Imaging [facility] Spine cervical wo contrast MRI Name: [...] right cord. SL: ROSALINA CHAPPELL 53 02/17/2015 [facility] Outpatient Imaging [facility] Renal Stone CT Name: JAROD MEYERS [...] IMPRESSION: Unremarkable renal stone CT. SL: 08/02/2013 [facility] Abdomen AP view Name: JAROD MEYERS [...] supine view of the abdomen. SL: 07/28/2013 [facility] Outpatient Imaging [facility] Chest 1view Name: JAROD MEYERS : [...] 1. Mild pulmonary vascular congestion. SL: 07/17/2013 [facility] Consultation Notes No Data Provided for [...] Hospital Temperature Oral (F) 100 F 09/29/2018 [facility] Respitory Rate [...] 08/02/2018 [facility] Diastolic (mm Hg) 79 08/02/2018 [facility] Respitory Rate 18 08/02/2018 [facility] Temperature Oral (F) 97.7 F 08/02/2018 [facility] Systolic (mm Hg) 125 08/02/2018 [facility] Diastolic (mm Hg) 74 08/02/2018 [facility] Heart Rate 97 08/02/2018 [facility] Respitory Rate 18 08/02/2018 [facility] Heart Rate 75 08/02/2018 [facility] Systolic (mm Hg) 112 08/02/2018 [facility] Diastolic (mm Hg) 76 08/02/2018 [facility] Respitory Rate 18 08/02/2018 [facility] Temperature Oral (F) 98.2 F 08/02/2018 [facility] Weight 147.273 07/28/2018 [facility] Height 175.26 cm 07/28/2018 [facility] BMI Calculated 47.95 07/28/2018 [facility] Weight 147.273 07/28/2018 [facility] BMI Calculated 55.73 07/28/2018 [facility] Systolic (mm Hg) 115 03/03/2018 [facility] Diastolic (mm Hg) 77 03/03/2018 [facility] Respitory Rate 18 03/03/2018 [facility] Temperature Oral (F) 98.1 F 03/03/2018 [facility] Heart Rate 78 03/03/2018 [facility] Respitory Rate 16 03/03/2018 [facility] Heart Rate 84 03/03/2018 [facility] Temperature Oral (F) 98.1 F 03/03/2018 [facility] Systolic (mm Hg) 108 03/03/2018 [facility] Diastolic (mm Hg) 73 03/03/2018 [facility] Weight 147.273 03/03/2018 [facility] Height 175.26 cm 03/03/2018 [facility] BMI Calculated 47.95 03/03/2018 [facility] Temperature Oral (F) 98.4 F 03/03/2018 [facility] Respitory Rate 18 03/03/2018 [facility] Systolic (mm Hg) 133 03/03/2018 [facility] Diastolic (mm Hg) 91 03/03/2018 [facility] Heart Rate 106 03/03/2018 [facility] Systolic [...] 09/29/2017 [facility] Diastolic (mm Hg) 83 09/29/2017 [facility] Respitory Rate 20 09/29/2017 [facility] Systolic (mm Hg) 114 09/29/2017 [facility] Diastolic (mm Hg) 88 09/29/2017 [facility] Respitory Rate 19 09/29/2017 [facility] Systolic (mm Hg) 137 09/29/2017 [facility] Diastolic (mm Hg) 81 09/29/2017 [facility] Weight 145.455 09/29/2017 [facility] Height 175.26 cm 09/29/2017 [facility] BMI Calculated 47.35 09/29/2017 [facility] Temperature Oral (F) 98.7 F 09/29/2017 [facility] Respitory Rate 20 09/29/2017 [facility] [...] Respitory Rate 16 07/22/2017 [facility] Systolic (mm Hg) 115 07/22/2017 [facility] [...] [facility] Heart Rate 97 03/15/2017 [facility] Respitory Rate 16 03/15/2017 [facility] Systolic (mm Hg) 124 03/15/2017 [facility] Diastolic (mm Hg) 79 03/15/2017 [facility] Respitory Rate 16 03/15/2017 [facility] Heart Rate 77 03/15/2017 [facility] Systolic (mm Hg) 116 03/15/2017 [facility] Diastolic (mm Hg) 77 03/15/2017 [facility] Respitory Rate 16 03/15/2017 [facility] Temperature Oral (F) 98.8 F 03/15/2017 [facility] Systolic (mm Hg) 118 03/15/2017 [facility] Diastolic (mm Hg) 65 03/15/2017 [facility] Temperature Oral (F) 99.3 F 03/15/2017 [facility] Heart Rate 94 03/15/2017 [facility] Weight 153.665 03/13/2017 [facility] BMI Calculated 50.03 03/13/2017 [facility] Height 175.26 cm 03/13/2017 [facility] Weight 125 03/12/2017 [facility] BMI Calculated 41.9 03/12/2017 [facility] Height 172.72 cm 03/12/2017 [facility] [...] F 05/17/2016 [facility] Respitory Rate 18 05/17/2016 [facility] Systolic (mm Hg) 122 05/17/2016 [facility] Diastolic (mm Hg) 86 05/17/2016 [facility] Heart Rate 82 05/17/2016 [facility] Height 175.26 cm 05/17/2016 [facility] BMI Calculated 44.4 05/17/2016 [facility] Weight 136.364 05/17/2016 [facility] Temperature Oral (F) 98.8 F 05/17/2016 [facility] Heart Rate 102 05/17/2016 [facility] Systolic (mm Hg) 120 05/17/2016 [facility] Diastolic (mm Hg) 84 05/17/2016 [facility] Respitory Rate 20 05/17/2016 [facility] Temperature Oral (F) 98.3 F 05/13/2016 [facility] Respitory Rate 16 05/13/2016 [facility] Heart Rate 97 05/13/2016 [facility] Systolic (mm Hg) 107 05/13/2016 [facility] Diastolic (mm Hg) 56 05/13/2016 [facility] Respitory Rate 16 05/13/2016 [facility] Systolic (mm Hg) 101 05/13/2016 [facility] Diastolic (mm Hg) 70 05/13/2016 [facility] Heart Rate 103 05/13/2016 [facility] BMI Calculated 46.76 05/13/2016 [facility] Weight 143.636 05/13/2016 [facility] Height 175.26 cm 05/13/2016 [facility] Heart Rate 124 05/13/2016 [facility] Respitory Rate 19 05/13/2016 [facility] Temperature Oral (F) 99.3 F 05/13/2016 [facility] Systolic (mm Hg) 121 05/13/2016 [facility] Diastolic (mm Hg) 66 05/13/2016 [facility] Systolic (mm Hg) 122 04/20/2016 [facility] Diastolic (mm Hg) 75 04/20/2016 [facility] Respitory Rate 18 04/20/2016 [facility] Temperature Oral (F) 99.2 F 04/20/2016 [facility] Heart Rate 92 04/20/2016 [facility] Systolic (mm Hg) 110 04/20/2016 [facility] Diastolic (mm Hg) 69 04/20/2016 [facility] Respitory Rate 18 04/20/2016 [facility] Heart Rate 110 04/20/2016 [facility] Temperature Oral (F) 98 F 04/20/2016 [facility] Weight 140.909 04/20/2016 [facility] BMI Calculated 45.87 04/20/2016 [facility] Temperature Oral (F) 98.7 F 04/20/2016 [facility] Respitory Rate 18 04/20/2016 [facility] Systolic (mm Hg) 108 04/20/2016 [facility] Diastolic (mm Hg) 74 04/20/2016 [facility] Heart Rate 114 04/20/2016 [facility] Height 175.26 cm 04/20/2016 [facility] Systolic (mm Hg) 124 01/07/2016 [facility] Diastolic (mm Hg) 66 01/07/2016 [facility] Heart Rate 93 01/07/2016 [facility] Respitory Rate 18 01/07/2016 [facility] Temperature Oral (F) 98.4 F 01/07/2016 [facility] Respitory Rate 18 01/07/2016 [facility] Heart Rate 95 01/07/2016 [facility] Systolic (mm Hg) 130 01/07/2016 [facility] Diastolic (mm Hg) 70 01/07/2016 [facility] Respitory Rate 18 01/07/2016 [facility] Heart Rate 101 01/07/2016 [facility] Systolic (mm Hg) 100 01/07/2016 [facility] Diastolic (mm Hg) 59 01/07/2016 [facility] Weight 143.636 01/07/2016 [facility] Temperature Oral (F) 98.4 F 01/07/2016 [facility] BMI Calculated 48.15 01/07/2016 [facility] Height 172.72 cm 01/07/2016 [facility] Systolic (mm Hg) 126 12/20/2015 [facility] Diastolic (mm Hg) 72 12/20/2015 [facility] Temperature Oral (F) 98.2 F 12/20/2015 [facility] Heart Rate 85 12/20/2015 [facility] Respitory Rate 16 12/20/2015 [facility] Weight 140 12/20/2015 [facility] Height 172.72 cm 12/20/2015 [facility] Temperature Oral (F) 98.3 F 12/20/2015 [facility] BMI Calculated 46.93 12/20/2015 [facility] Heart Rate 105 12/20/2015 [facility] Respitory Rate 18 12/20/2015 [facility] Systolic [...] 84 06/22/2015 [facility] Respitory Rate 17 06/22/2015 [facility] Heart Rate 112 06/22/2015 [facility] Temperature Oral (F) 98.9 F 06/22/2015 [facility] Height 175.26 cm 06/22/2015 [facility] BMI Calculated 41.44 06/22/2015 [facility] Temperature Oral (F) 98.8 F 08/22/2014 [facility] Respitory Rate 20 08/22/2014 [facility] [...] 122.727 08/21/2014 [facility] BMI Calculated 38.82 08/21/2014 [facility] Heart Rate 84 01/12/2014 [facility] Respitory Rate 18 01/12/2014 [facility] Systolic (mm Hg) 122 01/12/2014 [facility] Diastolic (mm Hg) 72 01/12/2014 [facility] Height 177.8 cm 01/12/2014 [facility] BMI Calculated 40.26 01/12/2014 [facility] Weight 127.273 01/12/2014 [facility] Systolic (mm Hg) 123 01/12/2014 [facility] Diastolic (mm Hg) 72 01/12/2014 [facility] Heart Rate 89 01/12/2014 [facility] Temperature Oral (F) 98.4 F 01/12/2014 [facility] Respitory Rate 18 01/12/2014 [facility] BMI [...] DC Date Status Source Not Sent Emergency [id number] AYLA SIDDIQUI 04/20/2012 04/20/2012 [facility]charged [facility] Not Sent Emergency [id number] FRANCK LANDA 04/20/2012 04/21/2012 [facility] Not Sent Inpatient [id number] VALARIE MCQUEEN II 04/22/2012 04/25/2012 [facility] Not Sent DS [id number] ROSA KHAN 04/28/2012 04/28/2012 [facility] Not Sent Emergency [id number] SHERIF LARIOS 07/01/2012 07/02/2012 [facility] Not Sent Emergency [id number] FRANCK LANDA 07/17/2013 07/17/2013 [facility]charged [facility] [id number] _[id number] Gilbert Feng 07/28/2013 07/29/2013 [facility] Not Sent Emergency [id number] STEPHAN TORRES 08/02/2013 08/02/2013 Discharged [facility] [id number] Brown Mtoley Jr 09/28/2013 09/28/2013 [facility] [id number] Brown Motley Jr 01/12/2014 01/12/2014 [facility] [id number] Alec Magana 08/21/2014 08/22/2014 [facility] [id number] Franck Landa 08/22/2014 08/22/2014 [facility] [id number] Melo Meier 02/07/2015 02/07/2015 [facility] [id number] Kevin Callahan 02/17/2015 02/18/2015 [facility] Outpatient Imaging [facility] [id number] Hamida Leonlam 06/22/2015 06/22/2015 [facility] [id number] Mani Marjerad 12/20/2015 12/20/2015 [facility] [id number] Carroll Fine 01/07/2016 01/07/2016 [facility] Recurring [id number] Luis Felipe Haddad 03/08/2016 04/07/2016 [facility] Emergency [id number] Smita Pate 04/20/2016 04/20/2016 [facility] Emergency [id number] Jorge Sandoval 05/13/2016 05/13/2016 [facility] Emergency [id number] Alda Burdick 05/17/2016 05/17/2016 [facility] Emergency [id number] Goodlandelan Felixon 11/05/2016 11/05/2016 [facility] Inpatient [id number] Cliftondestinee Phoenix 03/12/2017 03/15/2017 [facility] Emergency [id number] Franck Jane 07/22/2017 07/22/2017 [facility] Emergency [id number] Ortiz Jesus 08/18/2017 08/18/2017 [facility] Emergency [id number] Luba Crawford 09/29/2017 09/30/2017 [facility]patient [facility] [place] [facility] [id number] Messi Mendez 11/18/2017 11/19/2017 [facility] Emergency [id number] Ortiz Jesus 02/10/2018 02/11/2018 [facility] Emergency [id number] Ortiz Jesus 03/03/2018 03/03/2018 [facility] Emergency [id number] Irvin Rocha 03/17/2018 03/17/2018 [facility] Inpatient [id number] Brown Villeda Jr 07/28/2018 08/03/2018 [facility] Emergency [id number] Zbigniew Zepeda 09/28/2018 09/29/2018 [facility] Procedures Procedure Code Date Perfomer Comments Source section [id number] [facility] Outpatient Imaging [facility] ORIF - Open reduction and internal fixation of fracture<sup>1</sup> [id number] left ankle [facility], [facility] Outpatient Imaging [facility] Assessment and Plan Assessment and Plan [...] BID 07/28/18 enoxaparin (Lovenox) 40 mg SUB-Q [id number] 08/01/18 furosemide (Lasix) 20 mg IVP Daily [...] discharged Outpatient pulmonary follow-up Patient okay to [place] home with above recommendations. Zane Vences MD [...] needed for cough. Ordered: Admit/Condition, 07/28/18 3:11:00 ASSISTED LIVING COORDINATOR, Status: Out Patient with Observation Services, Telemetry Capable Location, Expected LOS: 1 Midnight, Brown Swain MD, Admit MD Review/Approve Yes, Isolation: No Isolation/Standard Precautions, Acute bronchitis with... Chronic back pain PT/ OT, [place], morphine for breakthrough pain Heparin 1 to 2 midnights 08/03/2018 [facility] Extracted from:Title: Discharge Summary * Author: [...] with patient 5. Prophylaxis: Lovenox, Pepcid 6. [id number] IV fluids, heart healthy diet Deposition: Inpatient [...] above and pain control with as needed [place] and morphine -Asthma and COPD Acute on [...] 1smoking cessation education given, verbalized understanding 07/28/2018 [facility] Social History TypeResponse Alcohol Current, Type [...] Yes; Reg Smoking Cessation Counseling No 06/12/2013 [facility] Outpatient [facility] Social History TypeResponse Alcohol Current, Type [...] Yes; Reg Smoking Cessation Counseling No 06/12/2013 [facility] Family History No Data Provided for This Section Advance Directives No Data Provided for This Section Functional Status No Data Provided for This Section
[2019-02-15] MEDS ORDERED: NORCO 5-325 TA1 EACH PO (20:12)
[2019-02-15 20:50] LABS: BACTERIA,URINE FEW /HPF; EPITHELIAL CELLS,URINE RARE /LPF; WBC,URINE (MAN) 0-5 /HPF (0-5)
[2019-02-15 21:12] VITALS: BP 121/77
[2019-02-15] MEDS: NICOTINE 14 MG/EA PATCH TOP SCH (21:24)
[2019-02-15] MEDS: HYDROCODONE/APAP 5MG-325MG TAB PO PRN (21:24)
[2019-02-15] MEDS: METHYLPREDNISOLONE SOD SUCC 125 MG/2ML VIAL IV SCH (21:40)
[2019-02-15 21:59] VITALS: BP 121/77
[2019-02-15] MEDS: SODIUM CHLORIDE 0.9% 1000ML 1,000 ML IV SCH (22:22)
--- NOTE | 2019-02-15 23:00 | NUR ---
Received patient from ER, patient offered a bed , safety and fall precautions maintained as per hospital protocol: bed in lowest position and locked, needed items beside bed and call kowalski placed close to patient, yellow socks in place and falling star at the entrance of door. patient is currently stable will continue to monitor.
[2019-02-15] MEDS: IPRATROPIUM BROMIDE 0.02% 2.5 ML NEB NEB SCH (23:30)
[2019-02-16] VITALS (7 sets, daily range): BP systolic 107–133; BP diastolic 55–76
[2019-02-16] MEDS: IPRATROPIUM BROMIDE 0.02% 2.5 ML NEB NEB SCH (01:00)
[2019-02-16] MEDS: ALBUTEROL SULF 0.083% NEB SOLN 3 ML NEB NEB SCH (02:35)
[2019-02-16] MEDS: SODIUM CHLORIDE 0.9% 1000ML 1,000 ML IV SCH (04:40)
[2019-02-16] MEDS: METHYLPREDNISOLONE SOD SUCC 125 MG/2ML VIAL IV SCH (05:11)
[2019-02-16] MEDS ORDERED: ALBUTEROL/IPRATROPIUM 3 ML NEB NEB PRN (05:30)
[2019-02-16] MEDS ORDERED: HYDRALAZINE HCL 20 MG/ML VIAL IV PRN (05:45)
[2019-02-16] MEDS ORDERED: ONDANSETRON HCL INJ 2MG/ML 2ML 2 MG/ML VIAL IV PRN (05:45)
[2019-02-16] MEDS ORDERED: MELATONIN 5 MG TABLET PO PRN (05:45)
[2019-02-16] MEDS: GUAIFENESIN 600MG/DEXTROMETHORPHAN 30MG TABSR PO SCH ×2 (05:47→17:40)
[2019-02-16] MEDS: HYDROCODONE/APAP 5MG-325MG TAB PO PRN (05:47)
[2019-02-16] MEDS ORDERED: NON-FORMULARY MEDICATION (Cyclobenzaprine Hcl (Flexeril) 10 MG) PO PRN (06:00)
[2019-02-16] MEDS ORDERED: CYCLOBENZAPRINE HCL 10 MG TAB PO PRN (06:00)
[2019-02-16] MEDS ORDERED: BENZONATATE 100 MG CAP PO PRN (06:00)
[2019-02-16] MEDS: ALBUTEROL/IPRATROPIUM 3 ML NEB NEB SCH ×5 (06:16→23:30)
[2019-02-16] MEDS: LEVOFLOXACIN 750MG/D5W 150ML 150 ML IV SCH (07:25)
--- NOTE | 2019-02-16 07:26 | NUR ---
patient endorsed to next shift for continuity of care.
--- NOTE | 2019-02-16 07:27 | NUR ---
received report from shift mgr RN, pt laying in bed, awake, alert, no distress noted, will continue to monitor.
[2019-02-16] MEDS: METHYLPREDNISOLONE SOD SUCC 40 MG/ML VIAL 1ML IV SCH ×2 (08:37→21:00)
[2019-02-16] MEDS: LORATADINE 10 MG TAB PO SCH (08:39)
[2019-02-16] MEDS: VERAPAMIL HCL 120 MG TABSR PO SCH (08:39)
[2019-02-16] MEDS: GABAPENTIN 300 MG CAP PO SCH ×2 (08:40→17:40)
--- NOTE | 2019-02-16 10:00 | NUR ---
report given to receiving nurse, pt being transferred to room 293. pt in stable condition.
[2019-02-16] MEDS: ACETAMINOPHEN 325 MG TAB PO PRN ×2 (10:20→21:10)
--- NOTE | 2019-02-16 13:33 | NUR ---
Pulmonary Medicine Dictated [id number]
--- NOTE | 2019-02-16 17:19 | NUR ---
patient resting up in bed, denies any pain, not in any distress, call light in reach
[2019-02-16] MEDS: NICOTINE 14 MG/EA PATCH TOP SCH (17:40)
[2019-02-16] MEDS ORDERED: AZITHROMYCIN 500MG/SOD CHL 0.9% 250ML BAG IV SCH (18:45)
[2019-02-16] MEDS ORDERED: CEFTRIAXONE SOD 1 GRAM/0.9% SOD CHL 50ML BAG IV SCH (18:45)
--- NOTE | 2019-02-16 19:33 | NUR ---
Received change of shift report from AM nurse. Walking rounds completed.
--- NOTE | 2019-02-16 19:54 | Consultation ---
DATE OF CONSULTATION: 02/16/2019 Pulmonary Medicine Consult HISTORY OF PRESENT ILLNESS: Ms. Garcia is a pleasant 43-year-old female with pneumonia. The patient with multiple ER visits this month including on the , the , and then the 15 of February. The patient was getting breathing treatments. Recently, she has been on her baseline theophylline, Singulair, and is awaiting her immunotherapy application to be approved. The patient today was shown to be worse. Chest x-ray demonstrated right infrahilar opacity consistent with atelectasis versus pneumonia, which is different from her x-ray a few days prior. It was elected to admit her with shortness of breath. Chronically, she is on prednisone 10 mg 3 times a week. The patient with history of very mildly elevated eosinophil count of 200-300 per micro liter and low IgE level. PAST MEDICAL HISTORY: Chronic asthma, allergies, GERD, borderline blood pressure. ALLERGIES: NO KNOWN DRUG ALLERGIES. MEDICATIONS: Medication list reviewed per the chart record. SOCIAL HISTORY: She smokes still. No alcohol. No drugs. She still lives in the same apartment complex as before with all the environmental possibility of mold allergy. FAMILY HISTORY: Noncontributory. REVIEW OF SYSTEMS: GENERAL: No malaise. OPHTHALMOLOGIC: No floaters. ENDOCRINE: No thyroid disease. ENT: Teeth in reasonable state. PULMONARY: No lung masses. CARDIAC: No heart attacks. GI: No constipation. : No history of renal cancer. NEUROLOGIC: No seizures. DERMATOLOGIC: No rashes. MUSCULOSKELETAL: Only mild arthritis. OBJECTIVE: VITAL SIGNS: Noted and reviewed per the chart record. When she came to the hospital recently, she was having a heart rate of about 113 beats per minute, blood pressure 124/78. GENERAL: In bed, comfortable, looks weak. HEENT: Normocephalic, atraumatic. NECK: Supple. Throat midline. LUNGS: Bilateral air entry, rare rhonchi. CARDIOVASCULAR: S1, S2. No murmurs, rubs, or gallops. ABDOMEN: Soft, nontender. EXTREMITIES: No clubbing, no cyanosis, no edema. INTEGUMENT: No rash, no purpura. LABORATORY DATA: 19 white count, 36 hematocrit, 352 platelets. 3.5 potassium, 14 BUN, 0.8 creatinine. 3.3 albumin. IMPRESSION AND PLAN: 1. Asthma with exacerbation. 2. Active smoking. 3. Obesity. 4. Abnormal chest x-ray, pneumonia. 5. Possible environmental exposures around her house. 6. Chronic pain. Continue steroids. Antibiotics. Repeat chest x-ray in the future based on her progress. Ambulate the patient and encourage expectoration. Wean steroids. As outpatient, the patient still awaiting approval of immunotherapy as we put an application for this. Continue theophylline, Singulair and other outpatient medicines in the meantime. Thank you very much, Dr. Horan for allowing me a chance to participate in care of Ms. Garcia. Please call for questions. MD TONE Marinelli/KIRILL /[id number]
--- NOTE | 2019-02-16 20:00 | NUR ---
Patient c/o CHEN with patch on. Patient removed patch from right arm.
[2019-02-16] MEDS: MONTELUKAST SODIUM 10 MG TAB PO SCH (21:00)
[2019-02-16] MEDS: ZOLPIDEM TARTRATE 5 MG TAB PO SCH (21:00)
[2019-02-17] VITALS (7 sets, daily range): BP systolic 98–130; BP diastolic 55–81
--- NOTE | 2019-02-17 02:25 | NUR ---
Patient received sleep meds. Resting quitly with no c/o at this time.
--- NOTE | 2019-02-17 03:00 | NUR ---
Patient HR elevated to 150s but didnt sustain. Patient states HR always elevate when sleeping. Pt denies sob, C.P. Patient states I feel fine. Continue monitor.
[2019-02-17] MEDS: ALBUTEROL/IPRATROPIUM 3 ML NEB NEB SCH ×6 (03:05→23:50)
[2019-02-17] MEDS: LEVOFLOXACIN 750MG/D5W 150ML 150 ML IV SCH (05:50)
[2019-02-17 05:53] LABS: BASOPHILS % 0.2 % (0.0-1.0); HEMOGLOBIN 11.2 g/dL (12.0-16.0); LYMPHOCYTES # (AUTO) 1.4 (1.0-3.2); LYMPHOCYTES % 5.6 % (18.0-39.1); MEAN CORPUSCULAR HEMOGLOBIN 25.2 pg (28-32); MEAN CORPUSCULAR HGB CONC 31.1 g/dL (31-35); MEAN CORPUSCULAR VOLUME 80.9 fL (81-99); MONOCYTES # (AUTO) 0.4 (0.2-0.8); MONOCYTES % 1.6 % (4.4-11.3); NEUTROPHILS % 90.4 % (38.7-80.0); PLATELET COUNT 402 x10e3/uL (140-360); RED BLOOD COUNT 4.45 x10e6/uL (3.6-5.1); RED CELL DISTRIBUTION WIDTH 14.6 % (11.7-14.4)
[2019-02-17 06:21] LABS: ANION GAP 13.6 mmol/L (8-16); BLOOD UREA NITROGEN 14 mg/dL (7-26); BUN/CREATININE RATIO 20 (6-25); CALCIUM 9.7 mg/dL (8.4-10.2); CARBON DIOXIDE 26 mmol/L (22-29); CHLORIDE 107 mmol/L (98-107); CHOL/HDL RATIO 3.4 (3.0-3.6); CHOLESTEROL 171 MD/DL (0-199); CREATININE, SERUM 0.71 mg/dL (0.57-1.11); EST GLOMERULAR FILTRATION RATE > 60 ML/MIN (60-); GLUCOSE 137 mg/dL (74-118); HDL CHOLESTEROL 50 MG/DL (40-60); LDL CHOLESTEROL 106 MG/DL (60-130); POTASSIUM 4.6 mmol/L (3.5-5.1); SODIUM 142 mmol/L (136-145); TRIGLYCERIDES 73 MG/DL (0-149)
[2019-02-17 06:44] LABS: FREE T4 (FREE THYROXINE) 0.77 ng/dL (0.8-1.8); THYROID STIMULATING HORMONE 0.553 uIU/mL (0.350-4.940)
[2019-02-17 06:59] LABS: LYMPHOCYTES % (MANUAL) 6 % (19-48); MONOCYTES % (MANUAL) 2 % (3.4-9.0); NEUTROPHILS % (MANUAL) 92 % (40-74); PLATELET ESTIMATE MODERATELY INCREASED; RBC MORPHOLOGY COMMENT NORMAL
[2019-02-17] MEDS: METHYLPREDNISOLONE SOD SUCC 40 MG/ML VIAL 1ML IV SCH ×2 (08:44→21:00)
[2019-02-17] MEDS: GABAPENTIN 300 MG CAP PO SCH ×2 (08:45→17:00)
[2019-02-17] MEDS: THEOPHYLLINE 200 MG TABCR PO SCH (08:45)
[2019-02-17] MEDS: GUAIFENESIN 600MG/DEXTROMETHORPHAN 30MG TABSR PO SCH ×2 (08:45→17:00)
[2019-02-17] MEDS: LORATADINE 10 MG TAB PO SCH (08:45)
[2019-02-17] MEDS: VERAPAMIL HCL 120 MG TABSR PO SCH (08:45)
--- NOTE | 2019-02-17 14:46 | Diagnostic Imaging Report ---
Chest, 1 view, 02/17/2019. History: Pneumonia. Comparison: 02/15/2019. Findings: The cardiomediastinal silhouette and pulmonary vasculature are within normal limits for a portable exam. Ill-defined right infrahilar opacity is without significant change. Left lung remains clear. There are no acute osseous or soft tissue abnormalities. Impression: No significant change. Signed by: Rashaun Henderson on 02/17/2019 2:43 PM
[2019-02-17] MEDS: NICOTINE 14 MG/EA PATCH TOP SCH (18:45)
--- NOTE | 2019-02-17 19:00 | NUR ---
patient received awake, alert, lying quietly in bed. no c/o pain noted at this time. pm assessment complete. patient instructed to call for assistance when needed.
--- NOTE | 2019-02-17 19:18 | NUR ---
PT UP IN W/C DENIES PAIN,
[2019-02-17] MEDS: MONTELUKAST SODIUM 10 MG TAB PO SCH (21:00)
[2019-02-17] MEDS: ZOLPIDEM TARTRATE 5 MG TAB PO SCH (21:00)
--- NOTE | 2019-02-17 21:41 | NUR ---
Pulmonary Medicine DATE OF ENCOUNTER: 02/17/2019 SUBJECTIVE: ra FIO2 patient feeling better now eating well less wheezing REVIEW OF SYSTEMS: no chest pain, no hemoptysis OBJECTIVE: VITAL SIGNS: Noted and reviewed per the chart record. GENERAL: In bed, comfortable, looks stronger HEENT: Normocephalic, atraumatic. NECK: Supple. Throat midline. LUNGS: Bilateral air entry, rare rhonchi. CARDIOVASCULAR: S1, S2. No murmurs, rubs, or gallops. ABDOMEN: Soft, nontender. EXTREMITIES: No clubbing, no cyanosis, no edema. INTEGUMENT: No rash, no purpura. LABORATORY DATA: 4.6 k, .71 cr. 25 wbc, hct 36. plt 402 IMPRESSION AND PLAN: 1. Asthma with exacerbation. 2. Active smoking. 3. Obesity. 4. Abnormal chest x-ray, pneumonia. 5. Possible environmental exposures around her house. 6. Chronic pain. 7. leucocytosis Continue steroids, wean Antibiotics. Repeat chest x-ray to check progress Ambulate the patient and encourage expectoration. As outpatient, the patient still awaiting approval of immunotherapy /Fasenra as we put an application for this. Continue theophylline, Singulair and other outpatient medicines in the meantime. Smoking cessation Thank you very much, Dr. Horan for allowing me a chance to participate in care of Ms. Garcia. Please call for questions.
[2019-02-18] VITALS (8 sets, daily range): BP systolic 95–130; BP diastolic 54–67
[2019-02-18] MEDS: ALBUTEROL/IPRATROPIUM 3 ML NEB NEB SCH ×6 (01:00→20:00)
--- NOTE | 2019-02-18 02:30 | NUR ---
new iv #20 gauge placed to left forearm x 1 stick. iv to right forearm removed due to redness and swelling. clean, dry dressing applied to site.
--- NOTE | 2019-02-18 05:00 | NUR ---
patient appears to be resting quietly. no c/o pain noted throughout the night.
[2019-02-18] MEDS ORDERED: SODIUM CHLORIDE 0.9% 250ML 250 ML ONE (05:04)
[2019-02-18] MEDS: LEVOFLOXACIN 750MG/D5W 150ML 150 ML IV SCH (05:27)
[2019-02-18 05:57] LABS: BASOPHILS % 0.2 % (0.0-1.0); HEMATOCRIT 34.7 % (34.2-44.1); LYMPHOCYTES # (AUTO) 1.5 (1.0-3.2); LYMPHOCYTES % 7.5 % (18.0-39.1); MEAN CORPUSCULAR HEMOGLOBIN 25.3 pg (28-32); MEAN CORPUSCULAR HGB CONC 31.7 g/dL (31-35); MONOCYTES # (AUTO) 0.6 (0.2-0.8); MONOCYTES % 2.8 % (4.4-11.3); NEUTROPHILS # (AUTO) 16.9 (2.1-6.9); NEUTROPHILS % 85.6 % (38.7-80.0); PLATELET COUNT 372 x10e3/uL (140-360); RED BLOOD COUNT 4.34 x10e6/uL (3.6-5.1); RED CELL DISTRIBUTION WIDTH 14.4 % (11.7-14.4)
[2019-02-18 06:25] LABS: ANION GAP 14.4 mmol/L (8-16); BLOOD UREA NITROGEN 16 mg/dL (7-26); BUN/CREATININE RATIO 20 (6-25); CALCIUM 9.4 mg/dL (8.4-10.2); CARBON DIOXIDE 25 mmol/L (22-29); CHLORIDE 105 mmol/L (98-107); CREATININE, SERUM 0.82 mg/dL (0.57-1.11); EST GLOMERULAR FILTRATION RATE > 60 ML/MIN (60-); GLUCOSE 211 mg/dL (74-118); POTASSIUM 4.4 mmol/L (3.5-5.1); SODIUM 140 mmol/L (136-145)
[2019-02-18 06:45] LABS: MAGNESIUM 2.4 MG/DL (1.3-2.1)
[2019-02-18 07:06] LABS: LYMPHOCYTES % (MANUAL) 7 % (19-48); MONOCYTES % (MANUAL) 4 % (3.4-9.0); NEUTROPHILS % (MANUAL) 89 % (40-74); PLATELET ESTIMATE ADEQUATE; RBC MORPHOLOGY COMMENT NORMAL
--- NOTE | 2019-02-18 07:10 | NUR ---
PATIENT IS IN STABLE CONDITION WITH NO S/S OF RESPIRATORY DISTRESS. NO PAIN VOICED. TELEMETRY APPLIED. CALL LIGHT IS WITHIN REACH, PATIENT INSTRUCTED TO CALL FOR ASSISTANCE NEEDED.
[2019-02-18] MEDS ORDERED: ONDANSETRON HCL 4 MG ORAL DISINTEGRATING TAB PO PRN (08:45)
[2019-02-18] MEDS: METHYLPREDNISOLONE SOD SUCC 40 MG/ML VIAL 1ML IV SCH ×2 (09:45→21:08)
[2019-02-18] MEDS: THEOPHYLLINE 200 MG TABCR PO SCH (09:45)
[2019-02-18] MEDS: FAMOTIDINE 20 MG TAB PO SCH ×2 (09:45→17:05)
[2019-02-18] MEDS: GABAPENTIN 300 MG CAP PO SCH ×2 (09:45→17:05)
[2019-02-18] MEDS: GUAIFENESIN 600MG/DEXTROMETHORPHAN 30MG TABSR PO SCH ×2 (09:45→17:05)
[2019-02-18] MEDS: LORATADINE 10 MG TAB PO SCH (09:45)
[2019-02-18] MEDS: BUPROPION HCL SR 150 MG TAB PO SCH (12:11)
--- NOTE | 2019-02-18 14:11 | NUR ---
EDUCATED ABOUT IMM, SIGNED, FILED IN CHART, WITH COPY LEFT WITH FAMILY AT BEDSIDE.
[2019-02-18] MEDS: ACETAMINOPHEN 325 MG TAB PO PRN (15:32)
[2019-02-18] MEDS: NICOTINE 14 MG/EA PATCH TOP SCH (17:04)
--- NOTE | 2019-02-18 18:49 | NUR ---
PATIENT IS IN STABLE CONDITION WITH NO S/S OF RESPIRATORY DISTRESS. NO PAIN VOICED. TELEMETRY APPLIED. CALL LIGHT IS WITHIN REACH, PATIENT INSTRUCTED TO CALL FOR ASSISTANCE NEEDED. REPORT GIVEN TO ONCOMING NURSE.
--- NOTE | 2019-02-18 20:26 | NUR ---
Pulmonary Medicine DATE OF ENCOUNTER: 02/18/2019 SUBJECTIVE: RA oxygen No respiratory distress Still coughing wbc still elevated the new CXR still with pneumonia present REVIEW OF SYSTEMS: no chest pain, no hemoptysis OBJECTIVE: VITAL SIGNS: Noted and reviewed per the chart record. GENERAL: In bed, comfortable, looks stronger HEENT: Normocephalic, atraumatic. NECK: Supple. Throat midline. LUNGS: Bilateral air entry, rare rhonchi. CARDIOVASCULAR: S1, S2. No murmurs, rubs, or gallops. ABDOMEN: Soft, nontender. EXTREMITIES: No clubbing, no cyanosis, no edema. INTEGUMENT: No rash, no purpura. LABORATORY DATA: 4.4 k, cr .82. wbc 19.7, hct 35, plt 372 IMPRESSION AND PLAN: 1. Asthma with exacerbation. 2. Active smoking. 3. Obesity. 4. Abnormal chest x-ray, pneumonia. 5. Possible environmental exposures around her house. 6. Chronic pain. 7. leucocytosis Continue steroids, wean Antibiotics. Repeat chest x-ray to check progress Ambulate the patient and encourage expectoration. As outpatient, the patient still awaiting approval of immunotherapy /Fasenra as we put an application for this. Continue theophylline, Singulair and other outpatient medicines in the meantime. Smoking cessation Thank you very much, Dr. Horan for allowing me a chance to participate in care of Ms. Garcia. Please call for questions.
[2019-02-18] MEDS ORDERED: VERAPAMIL HCL 120 MG TABSR PO SCH (21:00)
[2019-02-18] MEDS: MONTELUKAST SODIUM 10 MG TAB PO SCH (21:08)
[2019-02-18] MEDS: ZOLPIDEM TARTRATE 5 MG TAB PO SCH (21:08)
[2019-02-19] VITALS: BP 125/72
[2019-02-19] MEDS: ALBUTEROL/IPRATROPIUM 3 ML NEB NEB SCH ×3 (03:00→11:34)
[2019-02-19 04:00] VITALS: BP 91/50
[2019-02-19] MEDS: LEVOFLOXACIN 750MG/D5W 150ML 150 ML IV SCH (05:31)
--- NOTE | 2019-02-19 07:15 | NUR ---
PATIENT IS AWAKE AND IN STABLE CONDITION WITH NO S/S OF RESPIRATORY DISTRESS- NO PAIN VOICED. CALL LIGHT IS WITHIN REACH, PATIENT INSTRUCTED TO CALL FOR ASSISTANCE NEEDED.
[2019-02-19 08:20] VITALS: BP 126/86
[2019-02-19] MEDS: FAMOTIDINE 20 MG TAB PO SCH (08:20)
[2019-02-19] MEDS: LORATADINE 10 MG TAB PO SCH (08:20)
[2019-02-19] MEDS: GABAPENTIN 300 MG CAP PO SCH (08:20)
[2019-02-19] MEDS: BUPROPION HCL SR 150 MG TAB PO SCH (08:20)
[2019-02-19] MEDS: GUAIFENESIN 600MG/DEXTROMETHORPHAN 30MG TABSR PO SCH (08:20)
[2019-02-19] MEDS: THEOPHYLLINE 200 MG TABCR PO SCH (08:20)
[2019-02-19] MEDS ORDERED: METHYLPREDNISOLONE SOD SUCC 40 MG/ML VIAL 1ML IV SCH (09:00)
[2019-02-19 09:47] VITALS: BP 126/86
[2019-02-19 11:38] VITALS: BP 114/61
[2019-02-19] MEDS ORDERED: MUCINEX DM ER1 EACH PO (12:26)
[2019-02-19] MEDS ORDERED: PREDNISONE10 MG PO (12:26)
[2019-02-19] MEDS ORDERED: LEVAQUIN500 MG PO (12:26)
[2019-02-19] MEDS ORDERED: LUNESTA1 MG PO (13:03)
--- NOTE | 2019-02-19 13:53 | NUR ---
PATIENT DISCHARGE HOME- PATIENT OFF THE UNIT AT 1343 PER WHEELCHAIR ACCOMPANIED TO THE FRONT LOBBY BY STAFF MEMBER AND HER SON. PATIENT IN STABLE CONDITION WITH NO S/S OF RESPIRATORY DISTRESS. NO PAIN VOICED. IV REMOVED WITH TIP INTACT AT 1326. DISCHARGE TEACHING, INSTRUCTIONS, AND MEDICATIONS GIVEN TO THE PATIENT. ALL PERSONAL ITEMS TAKEN WITH THE PATIENT AND HER SON.
--- NOTE | 2019-02-19 22:00 | NUR ---
Pulmonary Medicine DATE OF ENCOUNTER: 02/19/2019 SUBJECTIVE: Patient with improved breathing STill coughing less phlegm REVIEW OF SYSTEMS: no chest pain, no hemoptysis OBJECTIVE: VITAL SIGNS: Noted and reviewed per the chart record. GENERAL: In bed, comfortable, looks stronger HEENT: Normocephalic, atraumatic. NECK: Supple. Throat midline. LUNGS: Bilateral air entry, rare rhonchi. CARDIOVASCULAR: S1, S2. No murmurs, rubs, or gallops. ABDOMEN: Soft, nontender. EXTREMITIES: No clubbing, no cyanosis, no edema. INTEGUMENT: No rash, no purpura. LABORATORY DATA: per emr IMPRESSION AND PLAN: 1. Asthma with exacerbation. Improving 2. Active smoking. 3. Obesity. 4. Abnormal chest x-ray, pneumonia. 5. Possible environmental exposures around her house. 6. Chronic pain. 7. leucocytosis Continue steroids, wean Antibiotics. Repeat chest x-ray to check progress Ambulate the patient and encourage expectoration. As outpatient, the patient still awaiting approval of immunotherapy /Fasenra as we put an application for this. Company will consider teagan dispensing due to hold up Continue theophylline, Singulair and other outpatient medicines in the meantime. Smoking cessation Thank you very much, Dr. Horan for allowing me a chance to participate in care of Ms. Garcia. Please call for questions.
--- NOTE | 2019-02-21 05:52 | Discharge Summary ---
ADMISSION DIAGNOSES: Pneumonia with sepsis, acute exacerbation of chronic obstructive pulmonary disease, hypertension, insomnia, morbid obesity with a BMI of 49.9, chronic pain. DISCHARGE DIAGNOSES: Pneumonia with sepsis, acute exacerbation of chronic obstructive pulmonary disease, hypertension, insomnia, morbid obesity with a BMI of 49.9, chronic pain. HISTORY: Asthma, COPD, chronic neck and back pain due to herniated disk, hypertension, insomnia. SURGICAL HISTORY: x2. Left ankle surgery. SOCIAL HISTORY: The patient admits to occasional alcohol use, occasional weed smoking and smokes less than half a pack per day of cigarettes. HOSPITAL COURSE: A 43-year-old female with complains of shortness of breath and cough since last week. She came to the ER, was given a Z-Cory and steroids with no relief. She denies fever or congestion. Her grand kids are sick with bronchitis. She continues to smoke cigarettes despite frequent pneumonia of 5 times this year and COPD. On admission, patient was started on Levaquin, nebs, Mucinex. Pulmonology was consulted. Due to wheezing, she was also started on Solu-Medrol. Chest x-ray showed interval development of right infrahilar patchy opacity. Blood cultures were negative. After couple days of Levaquin and IV steroids, the patient is feeling much better. She will discharge home with remaining doses of Levaquin and tapered dose of prednisone. The patient understands discharge instructions and agrees to plan. She will follow up with primary care in 1 to 2 weeks. Dictated by Princess Yeung NP MD STEVE Cortez/KIRILL /[id number]
== END 2019-02-19 13:57 | disposition home or self-care (01) | DRG 871 ==
LOC: ER 13:33 → ERHOLD 18:47 → MED/SURG 20:35 → MED/SURG3 02-16 10:14
PROVIDERS: ADMIT Internal Medicine; ATTEND Internal Medicine
DX: A41.9 Sepsis, unspecified organism (principal); J18.9 Pneumonia, unspecified organism; Z68.42 Body mass index [BMI] 45.0-49.9, adult; J44.0 Chronic obstructive pulmonary disease with (acute) lower respiratory infection; J44.1 Chronic obstructive pulmonary disease with (acute) exacerbation; M54.2 Cervicalgia; M54.9 Dorsalgia, unspecified; I10 Essential (primary) hypertension; G47.00 Insomnia, unspecified; Z87.01 Personal history of pneumonia (recurrent); E66.01 Morbid (severe) obesity due to excess calories; F17.210 Nicotine dependence, cigarettes, uncomplicated; Z77.120 Contact with and (suspected) exposure to mold (toxic)
CPT/HCPCS: 36415; 71045; 71046; 80048; 80053; 80061; 81001; 81025; 83036; 83735; 84100; 84439; 84443; 85025; 87040; 94640; 99284; J0456; J0696; J1100; J2920; J2930; J7030; J7050

== ENCOUNTER 2024-04-14 12:30 | Emergency (ER) | payer MEDICARE ==
[~2024-04-14] VITALS: Ht 172.7 cm; Wt 97.5 kg
[~2024-04-14 12:30] MED LIST changes: +DEXILANT30 MG PO; +LEVAQUIN500 MG PO; +LORATADINE10 MG PO; +LUNESTA1 MG PO; +MUCINEX DM ER1 EACH PO; +NORCO 5-325 TA1 EACH PO; +PREDNISONE10 MG PO; +THEOPHYLLINE A300 MG PO; +VERAPAMIL ER120 M1 PO
[2024-04-14 12:34] VITALS: PULSE 87; RESP 18; TEMP 97.8
[2024-04-14] MEDS ORDERED: SODIUM CHLORIDE FLUSH 10 ML SYR IV PRN (12:45)
[2024-04-14] MEDS: Morphine 4mg INJECTION 4 MG/ML INJ IV ONE (13:00)
[2024-04-14] MEDS: ONDANSETRON HCL INJ 2MG/ML 2ML 2 MG/ML VIAL IV STA (13:00)
[2024-04-14 13:18] LABS: BASOPHILS % 0.7 % (0.0-1.0); EOSINOPHILS # (AUTO) 0.2 (0.0-0.4); EOSINOPHILS % 3.8 % (0.0-6.0); HEMATOCRIT 38.8 % (34.2-44.1); HEMOGLOBIN 12.7 g/dL (12.0-16.0); LYMPHOCYTES # (AUTO) 2.5 (1.0-3.2); LYMPHOCYTES % 41.3 % (18.0-39.1); MEAN CORPUSCULAR HEMOGLOBIN 30.5 pg (28-32); MEAN CORPUSCULAR HGB CONC 32.7 g/dL (31-35); MEAN CORPUSCULAR VOLUME 93.3 fL (81-99); MONOCYTES # (AUTO) 0.5 (0.2-0.8); MONOCYTES % 8.3 % (4.4-11.3); NEUTROPHILS # (AUTO) 2.8 (2.1-6.9); NEUTROPHILS % 45.6 % (38.7-80.0); PLATELET COUNT 210 x10e3/uL (140-360); RED BLOOD COUNT 4.16 x10e6/uL (3.6-5.1); RED CELL DISTRIBUTION WIDTH 11.9 % (11.7-14.4); WHITE BLOOD COUNT 6.12 x10e3/uL (4.8-10.8)
[2024-04-14] MEDS ORDERED: ALBUTEROL/IPRATROPIUM 3 ML NEB ONE (13:20)
[2024-04-14 13:42] LABS: ALANINE AMINOTRANSFERASE 8 IU/L (0-55); ALBUMIN 3.4 g/dL (3.5-5.0); ALBUMIN/GLOBULIN RATIO 1.1 (0.8-2.0); ALKALINE PHOSPHATASE 71 IU/L (40-150); ANION GAP 12.4 mmol/L (8-16); BILIRUBIN,TOTAL 0.8 mg/dL (0.2-1.2); BLOOD UREA NITROGEN 10 mg/dL (7-26); BUN/CREATININE RATIO 12 (6-25); CALCIUM 9.3 mg/dL (8.4-10.2); CARBON DIOXIDE 21 mmol/L (22-29); CHLORIDE 107 mmol/L (98-107); CREATININE, SERUM 0.85 mg/dL (0.57-1.11); EST GLOMERULAR FILTRATION RATE 85 ML/MIN (>=60); GLUCOSE 101 mg/dL (74-118); SODIUM 137 mmol/L (136-145); TOTAL PROTEIN 6.6 g/dL (6.5-8.1)
[2024-04-14 13:46] LABS: POTASSIUM 3.4 mmol/L (3.5-5.1)
[2024-04-14 13:48] LABS: TROPONIN I 0.001 ng/mL (0-0.300)
[2024-04-14] MEDS ORDERED: CYCLOBENZAPRINE10 MG PO (14:08)
[2024-04-14 14:16] VITALS: BP 132/81; PULSE 98; RESP 18; O2SAT 98
== END 2024-04-14 14:18 | disposition home or self-care (01) ==
LOC: ER 12:40
DX: M54.6 Pain in thoracic spine (principal); J44.9 Chronic obstructive pulmonary disease, unspecified; J45.909 Unspecified asthma, uncomplicated; G47.30 Sleep apnea, unspecified; M54.9 Dorsalgia, unspecified; G89.29 Other chronic pain
CPT/HCPCS: 36415; 71045; 80053; 84484; 84702; 85025; 85379; 93005; 94760; 99284; J2270; J2405